=== PATIENT | male | born 1945 | race Caucasian/White ===

== ENCOUNTER 2017-01-07 18:30 | Emergency (ER) | payer MEDICARE ==
[2017-01-07] MEDS ORDERED: DIPH,PERTUS(ACELL)TETVAC-LF 0.5 ML VIAL IM ONE (18:43)
[2017-01-07 19:22] LABS: Basophils # (A) 0.1 k/uL (0-0.2); Basophils % (A) 1 %; CH 31.5; Eosinophils # (A) 0.3 k/uL (0-0.7); Eosinophils % (A) 2 %; HCT 46.8 % (39.0-53.0); HDW 2.68; HGB 14.8 gm/dL (13.0-17.5); Luc # (Auto) 0.39; Luc % (Auto) 3; Lymphocytes # (A) 2.5 k/uL (1.0-4.8); Lymphocytes % (A) 17 %; MCH 30.2 pg (25.0-35.0); MCHC 31.5 g/dL (31.0-37.0); Mean Platelet Volume 7.1; Monocytes # (A) 0.8 k/uL (0-1.0); Monocytes % (A) 5 %; Neutrophils # (A) 10.2 k/uL (1.3-7.7); Neutrophils % (A) 72 %; RBC 4.88 m/uL (4.30-5.90); RDW 14.2 % (11.5-15.5); WBC 14.2 k/uL (3.8-10.6); WBC (Perox) 12.84
[2017-01-07 19:30] LABS: MCV 95.9 fL (80.0-100.0)
[2017-01-07 19:32] LABS: ALT 26 U/L (21-72); AST 25 U/L (17-59); Alkaline Phosphatase 82 U/L (38-126); Anion Gap 13 mmol/L; Blood Urea Nitrogen 25 mg/dL (9-20); Calcium 9.4 mg/dL (8.4-10.2); Carbon Dioxide 23 mmol/L (22-30); Chloride 98 mmol/L (98-107); Glucose 97 mg/dL (74-99); Non-African American GFR(MDRD) 60 (>60 ml/min/1.73 sqM); Potassium 3.9 mmol/L (3.5-5.1); Sodium 134 mmol/L (137-145); Total Bilirubin 0.7 mg/dL (0.2-1.3); Total Protein 6.8 g/dL (6.3-8.2)
[2017-01-07 19:44] LABS: INR 1.1 (<1.2); Partial Thromboplastin Time 24.9 sec (22.0-30.0); Prothrombin Time 10.9 sec (9.0-12.0)
--- NOTE | 2017-01-07 19:59 | ED ---
General Adult HPI <Nyasia Sy - Last Filed: 01/07/17 22:05> - General Source: patient, family, EMS, RN notes reviewed Mode of arrival: EMS Limitations: no limitations <Sohail Wallace - Last Filed: 01/07/17 22:50> - General Chief complaint: Fall Stated complaint: Fall/Head Injiury Time Seen by Provider: 01/07/17 18:41 - History of Present Illness Initial comments: Patient is a pleasant 71-year-old male presenting to the emergency department following a fall. Incident occurred just prior to arrival. Patient slipped on the steps. Patient did roll back several steps and strike the [employer] coating on the mid-level. Patient did fall down another couple steps after that. Patient believes he did lose consciousness for up to a minute. Patient does have some mild discomfort in the back of his head. Patient has more discomfort of the left clavicle and left posterior ribs. Patient states it hurts to get deep breath however no dyspnea. Last tetanus immunization was less than 5 years. (Sohail Wallace) - Related Data Home Medications Medication Instructions Recorded Confirmed Multivitamins, Thera [Multivitamin] 1 tab PO DAILY 01/22/14 01/07/17 Spironolactone-Hctz 25-25Mg 1 tab PO DAILY 01/22/14 01/07/17 [Aldactazide 25-25 MG] Aspirin 81.25 mg PO DAILY 01/07/17 01/07/17 Atenolol [Tenormin] 50 mg PO DAILY 01/07/17 01/07/17 Atorvastatin Calcium [Lipitor] 10 mg PO HS 01/07/17 01/07/17 DULoxetine HCL [Cymbalta] 60 mg PO DAILY 01/07/17 01/07/17 Ranitidine HCl [Zantac] 150 mg PO BID 01/07/17 01/07/17 Tamsulosin [Flomax] 0.4 mg PO DAILY 01/07/17 01/07/17 Allergies Allergy/AdvReac Type Severity Reaction Status Date / Time SANTOSH Inhibitors Allergy Unknown Verified 01/07/17 19:21 gabapentin [From Neurontin] AdvReac Severe Swelling Verified 01/07/17 19:21 Review of Systems ROS Other: All systems not noted in ROS Statement are negative. <Nyasia Sy - Last Filed: 01/07/17 22:05> ROS Other: All systems not noted in ROS Statement are negative. Constitutional: Denies: fever Eyes: Denies: eye pain ENT: Denies: ear pain Respiratory: Denies: cough Cardiovascular: Denies: chest pain Endocrine: Denies: fatigue Gastrointestinal: Reports: abdominal pain (Patient has chronic epigastric pain.) Genitourinary: Denies: dysuria Musculoskeletal: Denies: back pain Skin: Denies: rash Neurological: Denies: weakness <Sohail Wallace - Last Filed: 01/07/17 22:50> ROS Statement: Those systems with pertinent positive or pertinent negative responses have been documented in the HPI. Past Medical History Past Medical History: Hypertension, Osteoarthritis (OA) Additional Past Medical History / Comment(s): FX PELVIS, WRIST, ELBOW, SPINE History of Any Multi-Drug Resistant Organisms: None Reported Past Surgical History: Appendectomy, Orthopedic Surgery, Tonsillectomy Additional Past Surgical History / Comment(s): DECOMPRESSION LAMINECTOMY, ORIF L ELBOW, L SUBMANDIBULAR GLAND EXCISED, EYE SURGERY Past Anesthesia/Blood Transfusion Reactions: No Reported Reaction Past Psychological History: No Psychological Hx Reported Smoking Status: Current every day smoker Past Alcohol Use History: Daily Past Drug Use History: None Reported - Past Family History Father Family Medical History: Cancer, Prostate Disorder <Sohail Wallace Last Filed: 01/07/17 22:50> General Exam Limitations: no limitations General appearance: alert, in no apparent distress Head exam: Present: other (Head is bandaged. There is blood in the posterior head.) Eye exam: Present: normal appearance, PERRL, EOMI ENT exam: Present: normal oropharynx Neck exam: Present: normal inspection. Absent: tenderness Respiratory exam: Present: normal lung sounds bilaterally Cardiovascular Exam: Present: regular rate, normal rhythm GI/Abdominal exam: Present: soft, tenderness (Minimal tenderness of the epigastric region which patient states is chronic.) Extremities exam: Present: normal inspection, full ROM, other (Mild tenderness medial left clavicle.) Back exam: Present: tenderness (Moderate tenderness left posterior ribs and muscle fullness.) Neurological exam: Present: alert, CN II-XII intact. Absent: motor sensory deficit Expanded Cranial nerves: EOM's Intact: Normal Motor strength exam: RUE: 5, LUE: 5, RLE: 5, LLE: 5 Psychiatric exam: Present: normal affect, normal mood Skin exam: Present: normal color <Sohail Wallace - Last Filed: 01/07/17 22:50> Course <KerrieNyasia - Last Filed: 01/07/17 22:05> <Sohail Wallace - Last Filed: 01/07/17 22:50> Vital Signs 01/07/17 01/07/17 01/07/17 18:45 19:10 19:46 Temperature 98.3 F Pulse Rate 70 78 Pulse Rate [ 70 Pulse Oximetery ] Respiratory 20 18 20 Rate Blood Pressure 112/56 100/56 O2 Sat by Pulse 99 99 Oximetry 01/07/17 01/07/17 01/07/17 20:41 21:45 22:00 Temperature Pulse Rate 81 77 88 Pulse Rate [ Pulse Oximetery ] Respiratory 20 18 22 Rate Blood Pressure 108/56 100/56 130/68 O2 Sat by Pulse 99 98 92 L Oximetry 01/07/17 22:30 Temperature Pulse Rate 60 Pulse Rate [ Pulse Oximetery ] Respiratory 18 Rate Blood Pressure 110/75 O2 Sat by Pulse 98 Oximetry - Reevaluation(s) Reevaluation #1: 01/07/17 20:15 Patient advised to have computed tomography scan of the abdomen pelvis. Patient refuses this and states discomfort is chronic. Patient refuses any pain medicine at this time. 01/07/17 22:30 Attempted to get patient up to ambulate. Patient had a near syncopal episode. Patient had return of bleeding from his left scalp laceration. 2 additional sutures of 4-0 nylon placed for hemostasis which was obtained. Sterile technique used. 01/07/17 22:49 Patient still unable to get up without dizziness. Patient is now agreeable to transfer. Unable to keep patient here secondary to head injury with loss of consciousness and trauma hospital protocol. Case was discussed in detail with Dr. Oakley at [facility] who will accept transfer. (Sohail Wallace) EKG Findings - EKG Comments: EKG Findings:: Size pericardial 59. CA 184. QRS 86. QT 466. QTc 461. Left axis. Normal QRS. No acute ST change. <Sohail Wallace - Last Filed: 01/07/17 22:50> Procedures - Laceration Laceration #1 Consent Obtained: verbal consent Indication: laceration Site: scalp (left frontoparietal) Size (cm): 4 Description: linear Depth: simple, single layer Anesthetic Used: lidocaine 1% Anesthesia Technique: local infiltration Amount (mls): 7 Pre-repair: wound explored, irrigated extensively, deep structures intact Type of Sutures: nylon Size of Sutures: 4-0 Number of Sutures: 6 Technique: simple, interrupted Patient Tolerated Procedure: well, no complications Laceration #2 Time Out Performed: Yes Indication: laceration Site: scalp (left frontoparietal) Size (cm): 2 Description: linear Depth: simple, single layer Anesthetic Used: lidocaine 1% Anesthesia Technique: local infiltration Amount (mls): 1 Pre-repair: wound explored, irrigated extensively, deep structures intact Type of Sutures: nylon Size of Sutures: 4-0 Number of Sutures: 2 Technique: simple, interrupted Patient Tolerated Procedure: well, no complications <Nyasia Sy - Last Filed: 01/07/17 22:05> Medical Decision Making - Lab Data Result diagrams: 01/07/17 19:04 01/07/17 19:04 <Nyasia Sy - Last Filed: 01/07/17 22:05> - Lab Data Result diagrams: 01/07/17 19:04 01/07/17 19:04 - Radiology Data Radiology results: report reviewed (Computed tomography scan of the brain shows atrophy. No acute intercranial abnormality. Temporal scalp hematoma. Computed tomography scan of the cervical spine shows spondylitic changes and narrowing C6-C7. No fracture.), image reviewed (Chest x-ray and left clavicle x -ray and AP pelvis showed no acute process.) <Sohail Wallace - Last Filed: 01/07/17 22:50> - Medical Decision Making Patient reevaluated and feels better. Patient still refuses computed tomography scan of the chest and abdomen. Patient and family are updated on results and need for follow-up. Patient states he does have a history of chronic high platelet count. Patient will follow-up with his doctor again for this. Patient will be ambulated prior to discharge. (Sohail Wallace) - Lab Data Lab Results 01/07/17 01/07/17 01/07/17 Range/Units 19:04 19:04 19:04 WBC 14.2 H (3.8-10.6) k/uL RBC 4.88 (4.30-5.90) m/uL Hgb 14.8 (13.0-17.5) gm/dL Hct 46.8 (39.0-53.0) % MCV 95.9 D (80.0-100.0) fL MCH 30.2 (25.0-35.0) pg MCHC 31.5 (31.0-37.0) g/dL RDW 14.2 (11.5-15.5) % Plt Count 843 H* (150-450) k/uL Neutrophils % 72 % Lymphocytes % 17 % Monocytes % 5 % Eosinophils % 2 % Basophils % 1 % Neutrophils # 10.2 H (1.3-7.7) k/uL Lymphocytes # 2.5 (1.0-4.8) k/uL Monocytes # 0.8 (0-1.0) k/uL Eosinophils # 0.3 (0-0.7) k/uL Basophils # 0.1 (0-0.2) k/uL PT 10.9 (9.0-12.0) sec INR 1.1 (<1.2) APTT 24.9 (22.0-30.0) sec Sodium 134 L (137-145) mmol/L Potassium 3.9 (3.5-5.1) mmol/L Chloride 98 (98-107) mmol/L Carbon Dioxide 23 (22-30) mmol/L Anion Gap 13 mmol/L BUN 25 H (9-20) mg/dL Creatinine 1.20 (0.66-1.25) mg/dL Est GFR (MDRD) Af Amer >60 (>60 ml/min/1.73 sqM) Est GFR (MDRD) Non-Af 60 (>60 ml/min/1.73 sqM) Glucose 97 (74-99) mg/dL Calcium 9.4 (8.4-10.2) mg/dL Total Bilirubin 0.7 (0.2-1.3) mg/dL AST 25 (17-59) U/L ALT 26 (21-72) U/L Alkaline Phosphatase 82 (38-126) U/L Troponin I (0.000-0.034) ng/mL Total Protein 6.8 (6.3-8.2) g/dL Albumin 4.1 (3.5-5.0) g/dL 01/07/17 Range/Units 19:04 WBC (3.8-10.6) k/uL RBC (4.30-5.90) m/uL Hgb (13.0-17.5) gm/dL Hct (39.0-53.0) % MCV (80.0-100.0) fL MCH (25.0-35.0) pg MCHC (31.0-37.0) g/dL RDW (11.5-15.5) % Plt Count (150-450) k/uL Neutrophils % % Lymphocytes % % Monocytes % % Eosinophils % % Basophils % % Neutrophils # (1.3-7.7) k/uL Lymphocytes # (1.0-4.8) k/uL Monocytes # (0-1.0) k/uL Eosinophils # (0-0.7) k/uL Basophils # (0-0.2) k/uL PT (9.0-12.0) sec INR (<1.2) APTT (22.0-30.0) sec Sodium (137-145) mmol/L Potassium (3.5-5.1) mmol/L Chloride (98-107) mmol/L Carbon Dioxide (22-30) mmol/L Anion Gap mmol/L BUN (9-20) mg/dL Creatinine (0.66-1.25) mg/dL Est GFR (MDRD) Af Amer (>60 ml/min/1.73 sqM) Est GFR (MDRD) Non-Af (>60 ml/min/1.73 sqM) Glucose (74-99) mg/dL Calcium (8.4-10.2) mg/dL Total Bilirubin (0.2-1.3) mg/dL AST (17-59) U/L ALT (21-72) U/L Alkaline Phosphatase (38-126) U/L Troponin I <0.012 (0.000-0.034) ng/mL Total Protein (6.3-8.2) g/dL Albumin (3.5-5.0) g/dL Disposition <Nyasia Sy - Last Filed: 01/07/17 22:05> Time of Disposition: 21:54 - Out of Hospital Transfer - Req. Specs Out of Hospital Transfer - Requested Specifics: Other Emergency Center <Sohail Wallace - Last Filed: 01/07/17 22:50> Clinical Impression: Fall, Concussion, Laceration of scalp Disposition: OTHER INSTITUTION NOT DEFINED Condition: Stable Instructions: Laceration (ED), Head Injury (ED) Additional Instructions: Twice daily apply antibiotic ointment to scalp laceration. Keep area bandaged. Suture removal in 9-10 days. Please follow-up with primary care physician in the next day or 2 for recheck. Return for change in mental status, weakness, confusion, speech problems, difficulty walking, worsening symptoms or any other concerns. Referrals: Ulices Freire MD [Primary Care Provider] - 1-2 days
--- NOTE | 2017-01-07 20:16 | CT ---
EXAMINATION TYPE: CT brain bennett levi DATE OF EXAM: 01/07/2017 COMPARISON: NONE HISTORY: Fall today with posterior injury CT DLP: 2088 mGycm Automated exposure control for dose reduction was used. TECHNIQUE: CT scan of the head and cervical spine are performed without contrast. FINDINGS: There is cerebral cortical atrophy. There is no mass effect nor midline shift. There is n o sign of intracranial hemorrhage. There is left temporal parietal scalp hematoma. The calvarium is i ntact. There is mild straightening of the cervical spine. There is spurring of the endplates. There i s a few millimeter anterior subluxation of C4 in relation to C5 and also C5 in relation to C6. There is hypertrophic multilevel mild facet arthropathy. The skull base is intact. IMPRESSION: Cerebral atrophy. No acute intracranial abnormality. Left temporal scalp hematoma. Spondylotic changes in the cervical spine. Severe narrowing of C6-7 disc space. This probably some sp inal stenosis at C6-7 due to posterior spur formation. No fracture seen in the cervical spine.
--- NOTE | 2017-01-07 20:50 | XR ---
EXAMINATION TYPE: XR chest 2V DATE OF EXAM: 01/07/2017 COMPARISON: 06/29/2015 HISTORY: Rib pain TECHNIQUE: Frontal and lateral views of the chest are obtained. FINDINGS: There is no heart failure nor confluent pneumonic infiltrate. There are chest leads. Costo phrenic angles are clear. IMPRESSION: No active cardiopulmonary disease. Inspiration is worse than last exam.
--- NOTE | 2017-01-07 20:50 | XR ---
EXAMINATION TYPE: XR clavicle LT DATE OF EXAM: 01/07/2017 COMPARISON: NONE HISTORY: Pain TECHNIQUE: 2 views FINDINGS: I see no fracture nor dislocation. There is spurring at the AC joint. IMPRESSION: No acute abnormality of the clavicle.
--- NOTE | 2017-01-07 20:56 | XR ---
EXAMINATION TYPE: XR pelvis AP view DATE OF EXAM: 01/07/2017 COMPARISON: NONE HISTORY: Pain TECHNIQUE: Single view FINDINGS: The pelvic ring is intact. Proximal femurs and hip joints are intact. Sacroiliac joints are intact. IMPRESSION: Negative pelvis x-ray exam. No fracture seen.
[2017-01-07 21:10] VITALS: TEMP 98.3
[2017-01-07 22:49] VITALS: BP 110/75; PULSE 60; RESP 18
[2017-01-07] MEDS ORDERED: MORPHINE SULFATE 2 MG/ML SYRINGE IVP STA (23:22)
== END 2017-01-08 00:37 | disposition other institution (70) ==
LOC: EC 18:30
DX: S06.0X0A Concussion without loss of consciousness, initial encounter (principal); S01.01XA Laceration without foreign body of scalp, initial encounter; I10 Essential (primary) hypertension; M19.90 Unspecified osteoarthritis, unspecified site; F17.200 Nicotine dependence, unspecified, uncomplicated; Z53.29 Procedure and treatment not carried out because of patient's decision for other reasons; Z79.82 Long term (current) use of aspirin; Z79.899 Other long term (current) drug therapy; Z88.8 Allergy status to other drugs, medicaments and biological substances; W10.9XXA Fall (on) (from) unspecified stairs and steps, initial encounter; Y92.009 Unspecified place in unspecified non-institutional (private) residence as the place of occurrence of the external cause
CPT/HCPCS: 36415; 93005; 80053; 84484; 85025; 85610; 85730; 71020; 72170; 73000; 72125; 70450; 99285; 96374; 12002; J2270

== ENCOUNTER → 2017-03-03 | Outpatient (CLI) | payer MEDICARE ==
[2017-03-03 13:45] LABS: Blood Urea Nitrogen 31 mg/dL (9-20)
--- NOTE | 2017-03-03 23:14 | CT ---
EXAMINATION TYPE: CT angio abdomen pelvis DATE OF EXAM: 03/03/2017 COMPARISON: CT abdomen August 08, 2009 HISTORY: Stent graft placed December 2016 4 abdominal aortic aneurysm rule out endoleak. CT DLP: 2541 mGycm, Automated Exposure Control for Dose Reduction was Utilized. CONTRAST: CTA scan of the abdomen and pelvis is performed without oral and without and with IV Contrast, patien t injected with 100 mL of Omnipaque 350. Three-D reconstructed images are created on a independent wo rkstation and reviewed. FINDINGS: VASCULAR: Since prior CT there is marked progression in size of [place] infrarenal abdominal aortic an eurysm. [place] Aneurysm measures up to 7.8 cm transversely on axial image 44. Length of the aneurysm is roughly 9 cm ending aortic bifurcation. There is new metallic aorta biiliac stent graft beginning at the juxtarenal level extending into common iliac arteries up to level of iliac bifurcation. Postco ntrast images show patency of the stent graft. There is a patent CHANDLER identified anteriorly from stent graft. No suspicious extraluminal enhancement is seen within the [place] aneurysmal sac to suggest en doleak. There are patent bilateral renal arteries, celiac axis, and SMA noted. There is good flow of contrast in bilateral internal and external iliac arteries. LUNG BASES: Bilateral gynecomastia is noted new from prior study. There is moderate to severe three-v essel coronary artery calcification seen which is noted marker for coronary artery disease. LIVER/GB: There are several subcentimeter low dense lesions scattered throughout the liver on current study to small to further characterize. Largest lesion seen in prior study posterior right hepatic d ome is not clearly seen on current study. There may be few new lesions seen on current study. Lesions are nonspecific due to small size. PANCREAS: No significant abnormality is seen. SPLEEN: No significant abnormality is seen. ADRENALS: Asymmetric nodular thickening to the left adrenal gland is thought to reflect benign hyperp lasia is unchanged from prior study. KIDNEYS: There is persistent simple appearing 2.2 cm cyst upper pole of the right kidney laterally se en best series 6 image 4. There are additional small simple appearing cysts scattered throughout the right kidney. BOWEL: No significant abnormality is seen. PROSTATE/SEMINAL VESICLES: Some central zone calcifications are seen in nonenlarged prostate gland LYMPH NODES: No greater than 1cm abdominal or pelvic lymph nodes are appreciated. OSSEOUS STRUCTURES: There is new postsurgical change in the lower lumbar spine. There is S-shaped sco liotic curvature and loss of normal lordosis on sagittal images. There is mild chronic compression fr acture L1 level. Some sacroiliac joint space narrowing is present bilaterally. OTHER: There is small fat containing left inguinal hernia. IMPRESSION: Large abdominal aortic aneurysm with patent aortobiiliac stent graft, no CTA evidence for endoleak.
== END | disposition home or self-care (01) ==
LOC: RADCTMAIN 12:51
PROVIDERS: ATTEND Surgery
DX: I71.4 Abdominal aortic aneurysm, without rupture (principal); Z98.890 Other specified postprocedural states
CPT/HCPCS: 82565; 84520; 36415; 74174; Q9967

== ENCOUNTER → 2017-08-10 | Outpatient (CLI) | payer MEDICARE ==
--- NOTE | 2017-08-10 18:30 | US ---
EXAM MEASUREMENTS: Liver Length: 14.7 CM Gallbladder Wall: 0.2 CM CBD: 0.4 CM Right Kidney: 10.2 X 5.6 X 5.3 CM PATIENT HISTORY: RUQ PAIN. Difficult and limited exam due to large amount of overlying bowel gas. PRIOR EXAM: CT 03/03/2017, US 04/05/2012 TECH IMPRESSIONS: 1. Pancreas: Obscured by bowel gas 2. Liver: Difficult and limited visualization. Heterogeneous echotexture. A few echogenic foci sloan uring 0.4 cm visualized throughout the liver, possible granuloma vs other 3. Gallbladder: wnl as visualized Evidence for sonographic Forrest's sign? No 4. CBD: wnl as visualized 5. Right Kidney: No hydronephrosis. Multiple cystic areas visualized, largest mid pole measuring 2. 0 x 2.0 x 2.1 cm IMPRESSION: No gallstones or dilated ducts. No ascites. Multiple right renal cortical cysts without hydronephrosi s.
== END | disposition home or self-care (01) ==
LOC: RADUSWWP 15:40
PROVIDERS: ATTEND Internal Medicine
DX: N28.1 Cyst of kidney, acquired (principal)
CPT/HCPCS: 76705

== ENCOUNTER 2019-01-14 22:13 | Inpatient (IN) | payer MEDICARE ==
[2019-01-14] MEDS ORDERED: SODIUM CHLORIDE 0.9% 1,000 ML IV STA (22:39)
[2019-01-14] MEDS ORDERED: KETOROLAC 30 MG/ML 1 ML VIAL IVP STA (22:39)
[2019-01-14 23:02] LABS: Anisocytosis Slight; HCT 44.1 % (39.0-53.0); HGB 13.8 gm/dL (13.0-17.5); MCHC 31.4 g/dL (31.0-37.0); Mean Platelet Volume 6.8; RBC 5.12 m/uL (4.30-5.90); RDW 16.9 % (11.5-15.5); WBC 28.4 k/uL (3.8-10.6)
[2019-01-14 23:04] LABS: Platelet Count 1390 k/uL (150-450)
--- NOTE | 2019-01-14 23:12 | XR ---
EXAMINATION TYPE: XR KUB DATE OF EXAM: 01/14/2019 COMPARISON: 03/02/2013 HISTORY: Left flank pain TECHNIQUE: 2 views upright FINDINGS: There is no sign of intestinal obstruction or pneumoperitoneum. Fecal pattern is normal. Th ere is abdominal aortic stent. There is posterior fusion surgery in the lower lumbar spine. There is some mild pleural reaction and atelectasis left lung base. There are no pathologic calcifications ove r the kidneys. IMPRESSION: Mild left-sided pleural reaction or atelectasis is a change compared to old exam. No free air.
--- NOTE | 2019-01-14 23:13 | ED ---
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 Upon my initial evaluation patient states "I believe I am suffering from nephrolithiasis" Reports that he's been doing well lately, been motivated to be physically active and his been participating in a rather strenuous exercise routine. Patient states that on Wednesday night he had an episode of left-sided flank pain that lasted for a few hours and resolved. He was able to sleep through the night and was asymptomatic throughout the day on Wednesday. Wednesday evening patient reports that he was at home resting, he attempted to sit down in a beach-type chair when he developed sudden stabbing left-sided flank pain with associated nausea. Patient reports the pain was overwhelming and prompted him to contact EMS. Upon EMS arrival patient was noted to be pale diaphoretic and quite u ncomfortable. He was treated with 10 mg of IV morphine as well as Zofran. Upon arrival in the emergency department patient reports his pain is decreased from a 12 out of 10-10 out of 10 in intensity. Patient states that he did urinate prior to EMS arrival didn't notice any gross hematuria. Patient denies any history of kidney stones. Patient denies any recent illness or injury. Upon further questioning patient does report that he had a aortic aneurysm repair 2-3 years ago. Patient states that the aortic aneurysm was below the renal arteries. - Related Data Home Medications Medication Instructions Recorded Confirmed Multivitamins, Thera [Multivitamin] 1 tab PO DAILY 01/22/14 01/07/17 Spironolactone-Hctz 25-25Mg 1 tab PO DAILY 01/22/14 01/07/17 [Aldactazide 25-25 MG] Atenolol [Tenormin] 50 mg PO DAILY 01/07/17 01/07/17 Atorvastatin Calcium [Lipitor] 10 mg PO HS 01/07/17 01/07/17 DULoxetine HCL [Cymbalta] 60 mg PO DAILY 01/07/17 01/07/17 RX: Aspirin 81.25 mg PO DAILY 11/30/17 11/30/17 Ranitidine HCl [Zantac] 150 mg PO BID 01/07/17 01/07/17 Tamsulosin [Flomax] 0.4 mg PO DAILY 01/07/17 01/07/17 Allergies Allergy/AdvReac Type Severity Reaction Status Date / Time SANTOSH Inhibitors Allergy Unknown Verified 01/14/19 22:19 gabapentin [From Neurontin] AdvReac Severe Swelling Verified 01/14/19 22:19 Review of Systems ROS Statement: Those systems with pertinent positive or pertinent negative responses have been documented in the HPI. ROS Other: All systems not noted in ROS Statement are negative. Past Medical History Past Medical History: Hypertension, Osteoarthritis (OA) Additional Past Medical History / Comment(s): FX PELVIS, WRIST, ELBOW, SPINE History of Any Multi-Drug Resistant Organisms: None Reported Past Surgical History: Appendectomy, Orthopedic Surgery, Tonsillectomy Additional Past Surgical History / Comment(s): DECOMPRESSION LAMINECTOMY, ORIF L ELBOW, L SUBMANDIBULAR GLAND EXCISED, EYE SURGERY Past Anesthesia/Blood Transfusion Reactions: No Reported Reaction Past Psychological History: No Psychological Hx Reported Smoking Status: Current every day smoker Past Alcohol Use History: None Reported Past Drug Use History: None Reported - Past Family History Father Family Medical History: Cancer, Prostate Disorder General Exam - General Exam Comments Initial Comments: Physical Exam GENERAL: Upon initial evaluation patient is diaphoretic, speaking in full sentences and making jokes HENT: Normocephalic, Atraumatic. EYES: PERRL, EOMI No conjunctival pallor PULMONARY: Unlabored respirations. No audible rales rhonchi or wheezing was noted. CARDIOVASCULAR: There is a regular rate and rhythm without any murmurs gallops or rubs. Warm and well perfused extremities ABDOMEN: Soft and nontender with normal bowel sounds. No bruit No pulsatile mass SKIN: Skin was pale and diaphoretic upon arrival, however when pain medications began working pallor resolved as did diaphoresis : Deferred NEUROLOGIC: Patient is alert and oriented x3. Moving all extremities spontaneously MUSCULOSKELETAL: Normal extremities with adequate strength and full range of motion. No lower extremity swelling or edema. No calf tenderness. PSYCHIATRIC: Normal psychiatric evaluation. Limitations: no limitations Course Vital Signs 01/14/19 01/14/19 01/15/19 22:15 23:53 01:33 Temperature 97.9 F Pulse Rate 66 89 92 Respiratory 16 16 18 Rate Blood Pressure 134/82 143/97 148/105 O2 Sat by Pulse 95 98 97 Oximetry 01/15/19 01/15/19 01:45 02:00 Temperature Pulse Rate 72 75 Respiratory 18 18 Rate Blood Pressure 142/75 137/88 O2 Sat by Pulse 97 97 Oximetry Medical Decision Making - Medical Decision Making Patient was seen and evaluated immediately upon arrival to the emergency department This is 73 to gentleman with no history of nephrolithiasis does have a history of AAA repair presenting with sudden onset of left-sided flank pain Labs and imaging were ordered Toradol was ordered for additional pain management - was initially resistant to the idea of Toradol stating that it doesn't usually work for pain however advised that it's very effective for kidney stone pain and may be a good option. 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 Hemoglobin is stable Patient has normal kidney function and is cleared for computed tomography scan with contrast, CT was ordered however when the mechanical maintenance technician arrived at the bedside to take the patient he declined to be transported to CT and wanted discussed imaging options again. Return to the patient's bedside and advised that we do need IV contrast to evaluate the vasculature in his abdomen including the AAA and graft. I advised the patient that though his symptoms do seem to be very much similar to a kidney stone especially considering pain has resolved completely after Toradol and the patient remains hemodynamically stable, we do need to rule out more ominous pathology including vascular pathology. Patient is agreeable to CT. Patient was subsequently transported to computed tomography scan. I received a call from radiology agricultural extension agent, computed tomography scan is in fact concerning for a vascular catastrophe. Patient appears to have exsanguination from the AAA into the retroperitoneum Vascular Surgery was paged immediately Results were discussed with the patient who still remains hemodynamically stable and asymptomatic, in anticipation of possible surgical intervention additional labs including type and screen and cross matching were requested requested lab cross match 6 units should the OR needed. Repeat CBC was also ordered as the patient has been here for 2 and half hours. Patient care was discussed with vascular surgeon agricultural extension agent Dr Ayala who happens to be a vascular surgeon who performed the patient's previous procedures. He is very familiar with patient. He was able to review the patient's images from home, he then contacted the radiologist on-call to discuss the imaging. After review of the imaging with the radiologist on-call decision was made to take the patient to the laborer filter plant for angiogram. Patient as updated on this plan as was his daughter Patient repeat CBC reveals stable hemoglobin 13.5 Patient remained hemodynamically stable and was transported to the lab[facility] filter plant for further evaluation Admitting hospitalist Dr. Chow was notified, epic ambulatory analysts was also notified - Lab Data Result diagrams: 01/15/19 01:30 01/14/19 22:53 Lab Results 01/14/19 01/14/19 01/15/19 Range/Units 22:53 22:53 01:30 WBC 28.4 H (3.8-10.6) k/uL RBC 5.12 (4.30-5.90) m/uL Hgb 13.8 (13.0-17.5) gm/dL Hct 44.1 (39.0-53.0) % MCV 86.0 (80.0-100.0) fL MCH 27.0 (25.0-35.0) pg MCHC 31.4 (31.0-37.0) g/dL RDW 16.9 H (11.5-15.5) % Plt Count 1390 H* (150-450) k/uL Neutrophils % % Neutrophils % (Manual) 86 % Band Neutrophils % 1 % Lymphocytes % % Lymphocytes % (Manual) 5 % Monocytes % % Monocytes % (Manual) 8 % Eosinophils % % Basophils % % Neutrophils # (1.3-7.7) k/uL Neutrophils # (Manual) 24.70 H (1.3-7.7) k/uL Lymphocytes # (1.0-4.8) k/uL Lymphocytes # (Manual) 1.42 (1.0-4.8) k/uL Monocytes # (0-1.0) k/uL Monocytes # (Manual) 2.27 H (0-1.0) k/uL Eosinophils # (0-0.7) k/uL Basophils # (0-0.2) k/uL Nucleated RBCs 0 (0-0) /100 WBC Manual Slide Review Performed Anisocytosis Slight Sodium 140 (137-145) mmol/L Potassium 4.7 (3.5-5.1) mmol/L Chloride 110 H (98-107) mmol/L Carbon Dioxide 22 (22-30) mmol/L Anion Gap 8 mmol/L BUN 32 H (9-20) mg/dL Creatinine 0.97 (0.66-1.25) mg/dL Est GFR (CKD-EPI)AfAm 89 (>60 ml/min/1.73 sqM) Est GFR (CKD-EPI)NonAf 77 (>60 ml/min/1.73 sqM) Glucose 152 H (74-99) mg/dL Calcium 9.6 (8.4-10.2) mg/dL Total Bilirubin 0.7 (0.2-1.3) mg/dL AST 23 (17-59) U/L ALT 16 L (21-72) U/L Alkaline Phosphatase 68 (38-126) U/L Total Protein 6.2 L (6.3-8.2) g/dL Albumin 3.5 (3.5-5.0) g/dL Blood Type A Positive Blood Type Recheck A Pos Bld Type Recheck Status No Antibody Screen NEGATIVE Crossmatch See Detail Spec Expiration Date 01/18/2019 - 232901/15/19 Range/Units 01:30 WBC 27.0 H (3.8-10.6) k/uL RBC 4.98 (4.30-5.90) m/uL Hgb 13.5 (13.0-17.5) gm/dL Hct 43.2 (39.0-53.0) % MCV 86.8 (80.0-100.0) fL MCH 27.1 (25.0-35.0) pg MCHC 31.2 (31.0-37.0) g/dL RDW 16.9 H (11.5-15.5) % Plt Count 1267 H* (150-450) k/uL Neutrophils % 90 % Neutrophils % (Manual) % Band Neutrophils % % Lymphocytes % 4 % Lymphocytes % (Manual) % Monocytes % 5 % Monocytes % (Manual) % Eosinophils % 0 % Basophils % 0 % Neutrophils # 24.2 H (1.3-7.7) k/uL Neutrophils # (Manual) (1.3-7.7) k/uL Lymphocytes # 1.0 (1.0-4.8) k/uL Lymphocytes # (Manual) (1.0-4.8) k/uL Monocytes # 1.3 H (0-1.0) k/uL Monocytes # (Manual) (0-1.0) k/uL Eosinophils # 0.1 (0-0.7) k/uL Basophils # 0.1 (0-0.2) k/uL Nucleated RBCs (0-0) /100 WBC Manual Slide Review Performed Anisocytosis Slight Sodium (137-145) mmol/L Potassium (3.5-5.1) mmol/L Chloride (98-107) mmol/L Carbon Dioxide (22-30) mmol/L Anion Gap mmol/L BUN (9-20) mg/dL Creatinine (0.66-1.25) mg/dL Est GFR (CKD-EPI)AfAm (>60 ml/min/1.73 sqM) Est GFR (CKD-EPI)NonAf (>60 ml/min/1.73 sqM) Glucose (74-99) mg/dL Calcium (8.4-10.2) mg/dL Total Bilirubin (0.2-1.3) mg/dL AST (17-59) U/L ALT (21-72) U/L Alkaline Phosphatase (38-126) U/L Total Protein (6.3-8.2) g/dL Albumin (3.5-5.0) g/dL Blood Type Blood Type Recheck Bld Type Recheck Status Antibody Screen Crossmatch Spec Expiration Date Critical Care Time Critical Care Time: Yes Total Critical Care Time: 45 Critical Care Time: Critical Care Time Critical care time was exclusive of separately billable procedures and treating other patients and teaching time. Critical care was necessary to treat or prevent imminent or life-threatening deterioration. Given the critical condition in which the patient arrived, the patient was immediately assessed by myself and the nurse, and cardiac monitoring initiated due to the potential for rapid decompensation of the patient's clinical condition. During the course of the patients stay, I spent a considerable amount of time at the bedside performing serial re-evaluations of the patient's h emodynamic and clinical status because of the recognized potential threat to life or limb in this condition. I then had a chance to review not only all of the available current laboratory and radiographic studies obtained today, but I also reviewed old records available to me at the time. Additionally, any ancillary information available including steam bone press tender records were reviewed. Sequential vital signs were obtained. Disposition Clinical Impression: AAA (abdominal aortic aneurysm), Retroperitoneal bleeding, Flank pain, Leukocytosis Disposition: ADMITTED IP TO THIS HOSP Is patient prescribed a controlled substance at d/c from ED?: No
[2019-01-14 23:23] LABS: Albumin 3.5 g/dL (3.5-5.0); Calcium 9.6 mg/dL (8.4-10.2); Potassium 4.7 mmol/L (3.5-5.1); Total Bilirubin 0.7 mg/dL (0.2-1.3); Total Protein 6.2 g/dL (6.3-8.2)
[2019-01-14 23:38] LABS: Band Neutrophils % 1 %; Lymphocytes # (M) 1.42 k/uL (1.0-4.8); Monocytes # (M) 2.27 k/uL (0-1.0); Neutrophils % (M) 86 %; Nucleated Red Blood Cells 0 /100 WBC (0-0); Total Cells Counted 100
--- NOTE | 2019-01-15 01:31 | CT ---
EXAMINATION TYPE: CT abdomen pelvis w con DATE OF EXAM: 01/15/2019 COMPARISON: 08/08/2009 and 03/03/2017 HISTORY: Left Flank pain CT DLP: 1275.7 mGycm Automated exposure control for dose reduction was used. CONTRAST: Performed with IV Contrast, patient injected with 100 mL of Isovue 300. There is some patchy atelectasis at the lung bases. Heart appears enlarged. There is no pericardial e ffusion. There is no pleural effusion. Spleen is intact. Stomach has normal size and contour. Gallbla dder is intact. There are small hepatic cysts that measure up to 1.5 cm. Bile ducts are not dilated. There is no evidence of pancreatic mass. Pancreatic duct appears normal. There is lower abdominal aortic aneurysm. There is aortic stent extending into the iliac arteries. Th ere is a large amount of retroperitoneal high attenuation fluid along the left psoas muscle extending into the pelvis along the iliopsoas muscle. This is consistent with acute retroperitoneal hemorrhage . This measures up to 6 cm in thickness. There is large aneurysm of the lower abdominal aorta. Aneury sm measures up to 8.3 cm which is increased from 7.7 cm on old exam. There is no retroperitoneal franklyn opathy. There is no ascites. There is no inguinal hernia. Hemorrhage extends into the inguinal canal. Kidneys show satisfactory contrast opacification. There is 2 cm cyst posterior right kidney. There is 3 cm cortical cyst upper pole right kidney. There is no hydronephrosis. Left kidney is displaced ant eriorly to a mild degree due to the retroperitoneal hemorrhage. There is no evidence of a bowel obstruction. Bladder distends smoothly. There is no free fluid in the pelvis. There is posterior fusion surgery in the lower lumbar spine. There is 25% anterior wedging of L1 vert ebra related to old compression fracture unchanged. There is no free air. There is no ascites. IMPRESSION: Large abdominal aortic aneurysm increased compared to 03/03/2017. There is evidence of very large acut e retroperitoneal hemorrhage on the left side along the left psoas muscle related to acute bleeding a bdominal aortic aneurysm. Maximum dimension of the aneurysm is 8.3 cm which is 6 mm larger than previ ous exam of 03/03/2017. This exam was discussed with Dr. Childers at 1:30 AM. Patchy atelectasis at the lung bases increased compared to old exam.
[2019-01-15 01:40] LABS: Anisocytosis Slight; Basophils # (A) 0.1 k/uL (0-0.2); Basophils % (A) 0 %; Eosinophils # (A) 0.1 k/uL (0-0.7); Eosinophils % (A) 0 %; HCT 43.2 % (39.0-53.0); HGB 13.5 gm/dL (13.0-17.5); Lymphocytes % (A) 4 %; MCH 27.1 pg (25.0-35.0); MCHC 31.2 g/dL (31.0-37.0); MCV 86.8 fL (80.0-100.0); Mean Platelet Volume 6.9; Monocytes # (A) 1.3 k/uL (0-1.0); Monocytes % (A) 5 %; Neutrophils # (A) 24.2 k/uL (1.3-7.7); Neutrophils % (A) 90 %; RBC 4.98 m/uL (4.30-5.90); RDW 16.9 % (11.5-15.5)
[2019-01-15 01:44] LABS: Platelet Count 1267 k/uL (150-450)
[2019-01-15] MEDS ORDERED: NALOXONE 0.4 MG/ML 1 ML VIAL IV PRN (02:27)
[2019-01-15] MEDS ORDERED: MIDAZOLAM 2 MG/2 ML VIAL IVP ONE (02:57)
[2019-01-15] MEDS ORDERED: LIDOCAINE 1% INJ 10MG/ML (20 ML MDV) SQ ONE (02:57)
[2019-01-15] MEDS ORDERED: IV FLUID CONTINUATION 1,000 ML IV ONE (03:08)
--- NOTE | 2019-01-15 03:59 | P.PN ---
Progress Note - Text Progress Note Date: 01/15/19 73-year-old gentleman presented to the emergency department for left flank pain onset Wednesday which patient states pain was significant and he thought it was secondary to a kidney stone. This pain lasted approximately 6 hours and then resolved. Last night he stated having significant pain and once again on the flank just above his ASIS on the left and therefore came to the emergency department at that time. He had a CT with contrast that demonstrated a retroperitoneal bleed on the left. I was called at that time and reviewed the CT with the emergency department as well as the radiologist on-call. He does have a stenting graft in place which was filling and did not appear to have any active extravasation outside of the graft. In discussions with the radiologist it was determined that the retroperitoneal bleed was likely from the aorta and not due to a spontaneous so as bleed. He was therefore scheduled for aortogram with possible realigning of the graft.
[2019-01-15] MEDS ORDERED: IOPAMIDOL-370 125ML BTL INJ ONE (04:00)
[2019-01-15] MEDS ORDERED: IOPAMIDOL-370 100ML BTL INJ ONE (04:01)
--- NOTE | 2019-01-15 04:05 | P.OP ---
Description of Procedure: Preoperative diagnosis: AAA with retroperitoneal bleed possible endoleak Postop diagnosis: AAA with retroperitoneal bleed unable to visualize endoleak Procedure: Aortogram via right common femoral artery access under ultrasound guidance Surgeon: Lucy Anesthesia: Moderate sedation times one hour Estimated blood loss: 5 mL Complications: None Condition: Stable Findings: Aorta: Patent graft without any signs of endoleak. No filling of retroperitoneal bleed. Celiac artery: Patent without any stenosis no evidence of type II endoleak from the celiac artery. SMA: Patent without any stenosis no evidence of type II endoleak from the SMA noted. Iliacs: Bilateral iliac arteries are patent without any signs of extravasation. Endograft is intact. Operative narrative: After emergent informed consent was obtained the patient all risks benefits competitions were described the patient is brought to the [facility] and laid in a supine position. The area of the groins was prepped and draped in the usual sterile fashion. Local anesthesia with moderate sedation was performed with continuous pulse ox monitoring and EKG monitoring. Utilizing ultrasound the right common femoral artery was visualized and shown to be patent without any significant plaque. Utilizing a multipurpose needle under ultrasound guidance the artery was accessed. Guidewire was placed followed by 5-Polish sheath. 035 Glidewire was then placed into the aorta followed by pigtail catheter. Angiogram was then obtained of the aorta. Multiple views including a lateral was obtained demonstrating no evidence of extravasation or filling of the aneurysmal sac. The graft appeared to be opposed with patent and brisk flow through the graft without anything outside of the graft. There was no visualization of any type II endoleak's as well. Once completed all guidewires, catheters and sheaths were removed and pressure was placed for hemostasis. Patient tolerated procedure well was sent to PACU for recovery Disposition: Patient will be admitted to the hospital for continued evaluation and monitoring. He will be on a telemetry floor for continuous EKG monitoring and blood pressure monitoring. We will continue to follow his blood count and hemoglobin see if there is any drop. We will recheck a CT angiogram in a couple days to see if there is any filling of this retroperitoneal bleed at that time. This was discussed in full detail with the patient who is in complete understanding and agreement.
[2019-01-15] MEDS ORDERED: MORPHINE SULFATE 2 MG/ML SYRINGE IVP PRN (04:08)
[2019-01-15 08:40] LABS: Anisocytosis Slight; HCT 42.3 % (39.0-53.0); HGB 13.1 gm/dL (13.0-17.5); MCH 27.3 pg (25.0-35.0); MCHC 31.1 g/dL (31.0-37.0); MCV 87.8 fL (80.0-100.0); RBC 4.81 m/uL (4.30-5.90); RDW 16.9 % (11.5-15.5)
[2019-01-15 08:47] LABS: Albumin 3.9 g/dL (3.5-5.0); Calcium 9.7 mg/dL (8.4-10.2); Magnesium 1.9 mg/dL (1.6-2.3); Phosphorus 4.2 mg/dL (2.5-4.5); Potassium 5.3 mmol/L (3.5-5.1); Total Bilirubin 0.7 mg/dL (0.2-1.3); Total Protein 6.8 g/dL (6.3-8.2)
[2019-01-15 08:50] LABS: Platelet Count 1397 k/uL (150-450)
[2019-01-15] MEDS: MORPHINE SULFATE 4 MG/ML SYRINGE IVP PRN ×4 (08:52→20:57)
[2019-01-15] MEDS ORDERED: ACETAMINOPHEN TAB 325 MG TAB PO PRN (10:31)
[2019-01-15] MEDS ORDERED: MELATONIN 5 MG TABLET PO PRN (10:31)
[2019-01-15] MEDS ORDERED: DOCUSATE 100 MG CAP PO PRN (10:31)
[2019-01-15] MEDS ORDERED: ALBUTEROL NEBULIZED 2.5 MG/3 ML INHALATION PRN (10:31)
[2019-01-15] MEDS ORDERED: ONDANSETRON 4 MG/2 ML VIAL IVP PRN (10:31)
--- NOTE | 2019-01-15 10:37 | P.HPIM ---
History of Present Illness H&P Date: 01/15/19 Chief Complaint: back pain Patient is a 73-year-old male to past history of idiopathic thrombocytosis with prior treatment with hydroxyurea, hypertension, dyslipidemi a, arthritis, and prior abdominal aortic aneurysm status post grafting approximately 2 years ago who presented to the emergency department with complaints of left-sided flank pain. In the ER he underwent an extensive evaluation. His initial vital signs were within normal limits. Initial laboratory analysis showed an elevated white blood cell count at 28.4, platelets 1390, hemoglobin 13.8, chloride 110, BUN 32, and glucose of 152. He underwent a CT of the abdomen and pelvis which showed a large abdominal aortic aneurysm increased in size compared to 03/03/17 with evidence of a very large acute retroperitoneal hemorrhage on the left side along with psoas muscle related to acute bleeding abdominal aortic aneurysm. Maximal dimension of the aneurysm was 8.3 cm which is 6 mm larger than previous exam. Dr. Ayala was contacted. Patient underwent aortogram via right common femoral artery access under ultrasound guidance which did not show any signs of an endoleak. Patient was subsequently admitted to the selective care unit. Patient seen and examined at bedside. He reports that he started having some flank pain on 01/13 and he initially thought this was renal colic and elevated ba devan at approximately 4 in the morning on 01/14. Then on the evening of 01/14 he went to sit in a beachchair is on the deck and again started having some left- sided flank pain. This continued to increase in nature and he finally presented to the emergency department. He denies any associated chest pain, shortness of breath, nausea, vomiting, dizziness, or fainting episodes. He denies any recent cough, cold, fever, or flu. He has not had any recent falls or trauma. He reports that he is falling frequently 2 years ago but he has since been doing physical therapy and then working out at the [employer]. He does report a history of idiopathic thrombocytosis for which he has seen Dr. Cornejo the past and been placed on hydroxyurea. He reports the office approximately 2 years ago and not having hematology follow-up in approximately the last 5-10 years. He continues to smoke approximately one pack per day. He denies any recent weight loss. Review of Systems Pertinent positives and negatives as discussed in HPI, a complete review of systems was performed and all other systems are negative. Past Medical History Past Medical History: Hyperlipidemia, Hypertension, Osteoarthritis (OA) Additional Past Medical History / Comment(s): FX PELVIS, WRIST, ELBOW, SPINE, Idiopathic thrombocytosis History of Any Multi-Drug Resistant Organisms: None Reported Past Surgical History: Appendectomy, Orthopedic Surgery, Tonsillectomy Additional Past Surgical History / Comment(s): DECOMPRESSION LAMINECTOMY, ORIF L ELBOW, L SUBMANDIBULAR GLAND EXCISED, EYE SURGERY, R CEA Past Anesthesia/Blood Transfusion Reactions: No Reported Reaction Past Psychological History: No Psychological Hx Reported Smoking Status: Current every day smoker Past Alcohol Use History: None Reported Past Drug Use History: None Reported Additional History: less than 1 PPD, No alcohol at this time - Past Family History Father Family Medical History: Cancer, Prostate Disorder Medications and Allergies Home Medications Medication Instructions Recorded Confirmed Type Atenolol [Tenormin] 50 mg PO DAILY@0800 01/07/17 01/15/19 History Atorvastatin Calcium [Lipitor] 10 mg PO DAILY@0800 01/07/17 01/15/19 History DULoxetine HCL [Cymbalta] 60 mg PO HS@199901/07/17 01/15/19 History Ranitidine HCl [Zantac] 150 mg PO BID@799,199901/07/17 01/15/19 History Tamsulosin [Flomax] 0.4 mg PO HS@199901/07/17 01/15/19 History Calcium/Magnesium/Zinc 1 tab PO DAILY@0800 01/15/19 01/15/19 History [Srqnmzg-Losdffrep-Ljet Tablet] Cyanocobalamin (Vitamin B-12) 1,000 mcg PO DAILY@0800 01/15/19 01/15/19 History [Vitamin B-12] Mometasone/Formoterol [Dulera 200 2 puff INHALATION RT-BID@799,199901/15/19 01/15/19 History Mcg/5 Mcg Inhaler] Thiamine [Vitamin B-1] 50 mg PO BID@799,199901/15/19 01/15/19 History Allergies Allergy/AdvReac Type Severity Reaction Status Date / Time SANTOSH Inhibitors Allergy Unknown Verified 01/15/19 09:08 gabapentin [From Neurontin] AdvReac Severe Swelling Verified 01/15/19 09:08 Physical Exam Osteopathic Statement: *. No significant issues noted on an osteopathic structural exam other than those noted in the History and Physical/Consult. Vitals: Vital Signs Temp Pulse Pulse Resp BP BP Pulse Ox 01/15/19 05:51 80 18 124/80 93 L 01/15/19 05:21 77 18 122/76 94 L 01/15/19 05:06 18 01/15/19 04:51 87 18 135/75 95 01/15/19 04:36 81 18 137/81 93 L 01/15/19 04:21 77 18 136/78 93 L 01/15/19 04:13 97.9 F 70 18 136/73 95 01/15/19 02:00 75 18 137/88 97 01/15/19 01:45 72 18 142/75 97 01/15/19 01:33 92 18 148/105 97 01/14/19 23:53 89 16 143/97 98 01/14/19 22:15 97.9 F 66 16 134/82 95 Intake and Output 01/14/19 01/15/19 01/15/19 22:59 06:59 14:59 Intake Total 50 Output Total 200 Balance -150 Intake: IV 50 Output: Urine 200 Other: Voiding Method Urinal Weight 77.111 kg 80.5 kg General: non toxic, no distress, appears at stated age, normal weight Derm: Cyanotic toes which patient states are chronic for the last 2 years and unchanged no unusual rashes/lesions no unusual ecchymoses, warm, dry Head: atraumatic, normocephalic, symmetric Eyes: EOMI, no lid lag, anicteric sclera, pupils equal round reactive to light ENT: Nose and ears atraumatic, no thrush, no pharyngeal erythema Neck: No thyromegaly, no cervical lymphadenopathy, trachea midline, supple Mouth: no lip lesion, mucus membranes moist Cardiovascular: S1S2 reg, no murmur, positive posterior tibial pulse bilateral, no edema, capillary refill less than 2 seconds Lungs: CTA bilateral, no rhonchi, no rales , no accessory muscle use Abdominal: soft, nontender to palpation, no guarding, no appreciable organomegaly, normal bowel sounds Ext: no gross muscle atrophy, muscle strength 5 out of 5 in all 4 extremities grossly, no contractures, Neuro: CN II-XI grossly intact, light touch intact all 4 extremities, finger to nose within normal limits, Psych: Alert, oriented, appropriate affect Results CBC & Chem 7: 01/15/19 08:09 01/15/19 08:09 Labs: Abnormal Lab Results - Last 24 Hours (Table) 01/14/19 01/14/19 01/15/19 Range/Units 22:53 22:53 01:30 WBC 28.4 H (3.8-10.6) k/uL RDW 16.9 H (11.5-15.5) % Plt Count 1390 H* (150-450) k/uL Neutrophils # (1.3-7.7) k/uL Neutrophils # (Manual) 24.70 H (1.3-7.7) k/uL Monocytes # (0-1.0) k/uL Monocytes # (Manual) 2.27 H (0-1.0) k/uL Chloride 110 H (98-107) mmol/L BUN 32 H (9-20) mg/dL Glucose 152 H (74-99) mg/dL ALT 16 L (21-72) U/L Total Protein 6.2 L (6.3-8.2) g/dL Crossmatch See Detail 01/15/19 Range/Units 01:30 WBC 27.0 H (3.8-10.6) k/uL RDW 16.9 H (11.5-15.5) % Plt Count 1267 H* (150-450) k/uL Neutrophils # 24.2 H (1.3-7.7) k/uL Neutrophils # (Manual) (1.3-7.7) k/uL Monocytes # 1.3 H (0-1.0) k/uL Monocytes # (Manual) (0-1.0) k/uL Chloride (98-107) mmol/L BUN (9-20) mg/dL Glucose (74-99) mg/dL ALT (21-72) U/L Total Protein (6.3-8.2) g/dL Crossmatch CT scan - abdomen: report reviewed CT scan - pelvis: report reviewed Thrombosis Risk Factor Assmnt - DVT/VTE Prophylaxis DVT/VTE Prophylaxis: Low risk, early ambulation encouraged Assessment and Plan Assessment: Left sided retroperitoneal bleed - repeat CT scan in 1-2 days - ? timing with no drop in HgB - pain control AAA with increased size - no endoleak from prior graft site - Vascular surgery recs Idiopathic thrombosis with leukocytosis - Consult hematology - follow CBC - neutrophil predominance noted Mildly elevated potassium - IVF - repeat in AM HTN - resume atenolol - follow BP HLD - statin COPD without exacerbation - continue with inhaled steroid and long acting beta agonist - prn albuterol Tobacco abuse - cessation - nicotine replacment The patient is admitted with an anticipated greater than 2 midnight stay for evaluation ofreplacement Surrogate decision-maker: Jayson Lloyd CODE STATUS: Full code no heroics, no prolonged vent DVT prophylaxis: SCDs Discussed with: Patient, nursing Anticipated discharge date: in 2-[address]: home A total of 35 minutes was spent on the care of this complex patient more than 50% of the time was spent in counseling and care coordination.
[2019-01-15] MEDS: SODIUM CHLORIDE 0.45% 1,000 ML IV SCH ×2 (13:19→20:17)
[2019-01-15] MEDS: HYDROcodone/APAP 7.5-325MG 1 EACH TAB PO PRN ×2 (16:15→23:14)
[2019-01-15] MEDS: FAMOTIDINE 20 MG TAB PO SCH (20:13)
[2019-01-15] MEDS: TAMSULOSIN 0.4 MG CAP.ER.24H PO SCH (20:13)
[2019-01-15] MEDS: THIAMINE 100 MG TAB PO SCH (20:13)
[2019-01-15] MEDS: DULoxetine HCL 60 MG CAPSULE.DR PO SCH (20:13)
[2019-01-15] MEDS: SYMBICORT 160-4.5 MCG INHALER INHALATION SCH (20:27)
[2019-01-16 01:35] VITALS: RESP 18
[2019-01-16] MEDS: MORPHINE SULFATE 4 MG/ML SYRINGE IVP PRN ×5 (01:50→22:17)
[2019-01-16] MEDS: HYDROcodone/APAP 7.5-325MG 1 EACH TAB PO PRN ×3 (05:05→20:45)
[2019-01-16] MEDS: SODIUM CHLORIDE 0.45% 1,000 ML IV SCH ×2 (05:07→17:00)
[2019-01-16 06:04] LABS: Anisocytosis Slight; Basophils # (A) 0.1 k/uL (0-0.2); Basophils % (A) 0 %; Eosinophils # (A) 0.3 k/uL (0-0.7); Eosinophils % (A) 1 %; HCT 33.5 % (39.0-53.0); HGB 10.7 gm/dL (13.0-17.5); Lymphocytes # (A) 1.9 k/uL (1.0-4.8); Lymphocytes % (A) 8 %; MCH 27.7 pg (25.0-35.0); MCHC 31.9 g/dL (31.0-37.0); MCV 86.9 fL (80.0-100.0); Mean Platelet Volume 7.9; Monocytes # (A) 2.2 k/uL (0-1.0); Monocytes % (A) 10 %; Neutrophils # (A) 17.9 k/uL (1.3-7.7); Neutrophils % (A) 78 %; RBC 3.85 m/uL (4.30-5.90); RDW 16.6 % (11.5-15.5); WBC 22.8 k/uL (3.8-10.6)
[2019-01-16 06:15] LABS: Platelet Count 1314 k/uL (150-450)
[2019-01-16 06:33] LABS: Poikilocytosis (M) Present
[2019-01-16] MEDS: SYMBICORT 160-4.5 MCG INHALER INHALATION SCH ×2 (07:42→21:06)
[2019-01-16] MEDS ORDERED: NON FORMULARY DRUG (Calcium/Magnesium/Zinc [Calcium-Magnesium-Zinc Tablet] 1 TAB) PO SCH (08:00)
[2019-01-16] MEDS: THIAMINE 100 MG TAB PO SCH ×2 (08:44→20:42)
[2019-01-16] MEDS: CYANOCOBALAMIN 500 MCG TAB PO SCH (08:44)
[2019-01-16] MEDS: ATORVASTATIN 10 MG TAB PO SCH (08:45)
[2019-01-16] MEDS: ATENOLOL 50 MG TAB PO SCH (08:45)
[2019-01-16] MEDS: FAMOTIDINE 20 MG TAB PO SCH ×2 (08:45→20:42)
--- NOTE | 2019-01-16 09:23 | IR ---
EXAMINATION TYPE: IR angio abdominal w runoff DATE OF EXAM: 01/15/2019 COMPARISON: NONE HISTORY: Fluoroscopy time. Fluoroscopy was provided to the referring clinician.
[2019-01-16 09:59] LABS: African American GFR (CKD) >90 (>60 ml/min/1.73 sqM); Anion Gap 12 mmol/L; Blood Urea Nitrogen 33 mg/dL (9-20); Calcium 8.8 mg/dL (8.4-10.2); Carbon Dioxide 20 mmol/L (22-30); Chloride 104 mmol/L (98-107); Glucose 71 mg/dL (74-99); Non-African American GFR(CKD) 85 (>60 ml/min/1.73 sqM); Potassium 5.1 mmol/L (3.5-5.1); Sodium 136 mmol/L (137-145)
--- NOTE | 2019-01-16 13:59 | P.PN ---
Subjective Progress Note Date: 01/16/19 Patient is a 73-year-old gentleman that seen and examined today. Patient sitting up in reclining chair. Patient is without any complaints of shortness of breath or chest pain. Patient underwent an aortogram via the right common femoral artery yesterday with Dr. Ayala. Patient denies any abdominal pain, groin pain, or bleeding. Patient is tolerating a regular diet. Objective - Vital Signs Vital signs: Vital Signs Temp 99.2 F 01/16/19 11:08 Pulse 78 01/16/19 11:08 Resp 18 01/16/19 11:08 BP 132/66 01/16/19 11:08 Pulse Ox 92 L 01/16/19 11:08 Intake & Output 01/15/19 01/16/19 01/16/19 18:59 06:59 18:59 Intake Total 222 1580 1440 Balance 222 1580 1440 Weight 80.2 kg Intake: Intake, IV Titration 1100 1200 Amount Sodium Chloride 0.45% 1, 1100 1200 000 ml @ 100 mls/hr IV . Q10H [facility] Rx#:[id number] Oral 222 480 240 Other: Voiding Method Toilet Toilet Toilet Urinal # Voids 2 5 - Exam General appearance: The patient is alert, oriented, in no acute distress. HET: Head is normocephalic and atraumatic. Pupils are equal and reactive. Heart: S1 S2. Regular rate and rhythm. Lungs: No crackles or wheezes are heard. Abdomen: Soft, nontender, nondistended with bowel sounds. No palpable organomegaly or masses. Groin: Right groin with minimal ecchymosis, no hematoma noted. Extremities: Normal skin color and turgor. No cyanosis, rash, ulceration, clubbing, or edema. Radial and pedal pulses are 2/4 bilaterally. Neurological: No focal deficits. Strength and sensation are grossly intact. - Labs CBC & Chem 7: 01/17/19 06:03 01/17/19 06:03 Labs: Abnormal Lab Results - Last 24 Hours (Table) 01/16/19 01/16/19 Range/Units 05:35 05:35 WBC 22.8 H (3.8-10.6) k/uL RBC 3.85 L (4.30-5.90) m/uL Hgb 10.7 L (13.0-17.5) gm/dL Hct 33.5 L (39.0-53.0) % RDW 16.6 H (11.5-15.5) % Plt Count 1314 H* (150-450) k/uL Neutrophils # 17.9 H (1.3-7.7) k/uL Monocytes # 2.2 H (0-1.0) k/uL Sodium 136 L (137-145) mmol/L Carbon Dioxide 20 L (22-30) mmol/L BUN 33 H (9-20) mg/dL Glucose 71 L (74-99) mg/dL Assessment and Plan Assessment: Abdominal aortic aneurysm with retroperitoneal bleed with no visual endoleak Idiopathic thrombosis with leukocytosis, Hematology on consult Hypertension Hyperlipidemia Tobacco abuse Plan: Discussed patient with Dr. Ayala. Hemoglobin 10.7 down from 13.1, patient to have a repeat CBC in the morning. Patient to have CT angiogram abdomen and pelvis tomorrow. The above dictated assessment and findings were discussed with Dr. Ayala. The impression and plan of care have been directed as dictated.
[2019-01-16 14:29] LABS: Anisocytosis Slight; HCT 34.8 % (39.0-53.0); HGB 10.9 gm/dL (13.0-17.5); Hypochromasia Slight; MCH 27.6 pg (25.0-35.0); MCHC 31.2 g/dL (31.0-37.0); MCV 88.5 fL (80.0-100.0); Mean Platelet Volume 8.7; RBC 3.93 m/uL (4.30-5.90); RDW 16.4 % (11.5-15.5); WBC 18.7 k/uL (3.8-10.6)
[2019-01-16 15:00] LABS: Platelet Count 1201 k/uL (150-450)
[2019-01-16 15:01] LABS: Basophils # (M) 0.19 k/uL (0-0.2); Eosinophils # (M) 0.19 k/uL (0-0.7); Lymphocytes # (M) 0.75 k/uL (1.0-4.8); Monocytes # (M) 2.06 k/uL (0-1.0); Neutrophils # (M) 15.52 k/uL (1.3-7.7); Neutrophils % (M) 83 %; Nucleated Red Blood Cells 0 /100 WBC (0-0); Total Cells Counted 100
--- NOTE | 2019-01-16 16:33 | P.CONS ---
<Germaine Gomez - Last Filed: 01/16/19 16:22> History of Present Illness - Reason for Consult Consult date: 01/16/19 ET Requesting physician: Jessica Delgado - Chief Complaint bleeding - History of Present Illness Dr. Boudreaux is a very pleasant 73-year-old male patient who is seen and treated by Dr. Cornejo in the past for essential thrombocythemia. Patient has not seen Dr. Cornejo since at least 1999. Previously been treated with Hydrea, platelet counts, from patient report, ran in the 500-600,000 range. He has not been on treatment. Patient presented to the emergency department with back pain. Imaging was suggestive of retroperitoneal bleed. Patient had an aortogram, it appears as though bleeding spontaneously resolved. Patient's pain is currently controlled. Hemoglobin is stable. No evidence to suggest ongoing bleeding at this time. Review of Systems 14 point ROS is negative Past Medical History Past Medical History: Blood Disorder, Hyperlipidemia, Hypertension, Osteoarthritis (OA) Additional Past Medical History / Comment(s): FX PELVIS, WRIST, ELBOW, SPINE, Idiopathic thrombocytosis History of Any Multi-Drug Resistant Organisms: None Reported Past Surgical History: Appendectomy, Orthopedic Surgery, Tonsillectomy Additional Past Surgical History / Comment(s): DECOMPRESSION LAMINECTOMY, ORIF L ELBOW, L SUBMANDIBULAR GLAND EXCISED, EYE SURGERY, R CEA Past Anesthesia/Blood Transfusion Reactions: No Reported Reaction Past Psychological History: No Psychological Hx Reported Smoking Status: Current every day smoker Past Alcohol Use History: None Reported Past Drug Use History: None Reported - Past Family History Father Family Medical History: Cancer, Prostate Disorder Medications and Allergies Home Medications Medication Instructions Recorded Confirmed Type Atenolol [Tenormin] 50 mg PO DAILY@0800 01/07/17 01/15/19 History Atorvastatin Calcium [Lipitor] 10 mg PO DAILY@0800 01/07/17 01/15/19 History DULoxetine HCL [Cymbalta] 60 mg PO HS@199901/07/17 01/15/19 History Ranitidine HCl [Zantac] 150 mg PO BID@799,199901/07/17 01/15/19 History Tamsulosin [Flomax] 0.4 mg PO HS@199901/07/17 01/15/19 History Calcium/Magnesium/Zinc 1 tab PO DAILY@0800 01/15/19 01/15/19 History [Qkfpbpw-Aiplnekqv-Azcq Tablet] Cyanocobalamin (Vitamin B-12) 1,000 mcg PO DAILY@79901/15/19 01/15/19 History [Vitamin B-12] Mometasone/Formoterol [Dulera 200 2 puff INHALATION RT-BID@799,199901/15/19 01/15/19 History Mcg/5 Mcg Inhaler] Thiamine [Vitamin B-1] 50 mg PO BID@799,199901/15/19 01/15/19 History Allergies Allergy/AdvReac Type Severity Reaction Status Date / Time SANTOSH Inhibitors Allergy Unknown Verified 01/15/19 09:08 gabapentin [From Neurontin] AdvReac Severe Swelling Verified 01/15/19 09:08 Physical Exam Vitals: Vital Signs Temp Pulse Resp BP Pulse Ox 01/16/19 16:10 76 18 156/73 92 L 01/16/19 11:08 99.2 F 78 18 132/66 92 L 01/16/19 08:51 97.6 F 99 18 150/64 92 L 01/16/19 04:00 98.4 F 91 18 139/67 95 01/16/19 00:00 97.9 F 89 18 161/84 96 01/15/19 20:00 97.9 F 84 17 134/69 94 L Intake and Output 01/16/19 01/16/19 01/16/19 06:59 14:59 22:59 Intake Total 1580 1440 Balance 1580 1440 Intake: Intake, IV Titration 1100 1200 Amount Sodium Chloride 0.45% 1, 1100 1200 000 ml @ 100 mls/hr IV . Q10H [facility] Rx#:[id number] Oral 480 240 Other: Voiding Method Toilet Toilet Toilet # Voids 5 Weight 80.2 kg - Constitutional General appearance: average body habitus, cooperative, no acute distress - EENT Eyes: anicteric sclerae, EOMI ENT: hearing grossly normal, normal oropharynx - Neck Neck: no lymphadenopathy - Respiratory Respiratory: bilateral: CTA - Cardiovascular Rhythm: regular Heart sounds: normal: S1, S2 Abnormal Heart Sounds: no systolic murmur, no diastolic murmur, no rub, no S3 Gallop, no S4 Gallop, no click, no other leg Peripheral Edema: bilateral: None - Gastrointestinal General gastrointestinal: no absent bowel sounds, no decreased bowel sounds, no distended, no hepatomegaly, no hyperactive bowel sounds, normal bowel sounds, no organomegaly, no rigid, no scaphoid, soft, no splenomegaly, no tenderness, no umbilical hernia, no ventral hernia - Integumentary Integumentary: normal - Neurologic Neurologic: CNII-XII intact - Musculoskeletal Musculoskeletal: strength equal bilaterally - Psychiatric Psychiatric: A&O x's 3, appropriate affect, intact judgment & insight Results CBC & Chem 7: 01/16/19 13:11 01/16/19 05:35 Labs: Abnormal Lab Results - Last 24 Hours (Table) 01/16/19 01/16/19 01/16/19 Range/Units 05:35 05:35 13:11 WBC 22.8 H 18.7 H (3.8-10.6) k/uL RBC 3.85 L 3.93 L (4.30-5.90) m/uL Hgb 10.7 L 10.9 L (13.0-17.5) gm/dL Hct 33.5 L 34.8 L (39.0-53.0) % RDW 16.6 H 16.4 H (11.5-15.5) % Plt Count 1314 H* 1201 H* (150-450) k/uL Neutrophils # 17.9 H (1.3-7.7) k/uL Neutrophils # (Manual) 15.52 H (1.3-7.7) k/uL Lymphocytes # (Manual) 0.75 L (1.0-4.8) k/uL Monocytes # 2.2 H (0-1.0) k/uL Monocytes # (Manual) 2.06 H (0-1.0) k/uL Sodium 136 L (137-145) mmol/L Carbon Dioxide 20 L (22-30) mmol/L BUN 33 H (9-20) mg/dL Glucose 71 L (74-99) mg/dL Assessment and Plan (1) AAA (abdominal aortic aneurysm) Current Visit: Yes Status: Acute Priority: High Code(s): I71.4 - ABDOMINAL AORTIC ANEURYSM, WITHOUT RUPTURE SNOMED Code(s): 554665159 (2) Retroperitoneal bleeding Narrative/Plan: Secondary to above, Hgb stable, labs daily Current Visit: Yes Status: Acute Priority: High Code(s): R58 - HEMORRHAGE, NOT ELSEWHERE CLASSIFIED SNOMED Code(s): 50400200 (3) Essential thrombocythemia Narrative/Plan: Hx of diagnosis and treatment in the . Patient states he monitors his own labs when he has routine lab draws. He states typically in the 500,000-600,000 range. Patient's platelets are currently 1,314,000. Likely exacerbated because of acute bleed but, numerous labs drawn to evaluate for bleeding possibility. Patient would like to reestablish care with Dr. Cornejo. I will send a message to Dr. Cornejo to see if he wants to start him on any Hydrea therapy at this time or just monitor. Labs in the a.m. Current Visit: Yes Status: Chronic Priority: High Code(s): D47.3 - ESSENTIAL (HEMORRHAGIC) THROMBOCYTHEMIA SNOMED Code(s): 314537313 <Aniket,Laci - Last Filed: 01/16/19 19:11> Physical Exam Vitals: Vital Signs Temp Pulse Resp BP Pulse Ox 01/16/19 16:10 76 18 156/73 92 L 01/16/19 11:08 99.2 F 78 18 132/66 92 L 01/16/19 08:51 97.6 F 99 18 150/64 92 L 01/16/19 04:00 98.4 F 91 18 139/67 95 01/16/19 00:00 97.9 F 89 18 161/84 96 01/15/19 20:00 97.9 F 84 17 134/69 94 L Intake and Output 01/16/19 01/16/19 01/16/19 06:59 14:59 22:59 Intake Total 1580 1560 Balance 1580 1560 Intake: Intake, IV Titration 1100 1200 Amount Sodium Chloride 0.45% 1, 1100 1200 000 ml @ 100 mls/hr IV . Q10H [facility] Rx#:[id number] Oral 480 360 Other: Voiding Method Toilet Toilet Toilet # Voids 5 Weight 80.2 kg Results CBC & Chem 7: 01/16/19 13:11 01/16/19 05:35 Labs: Abnormal Lab Results - Last 24 Hours (Table) 01/16/19 01/16/19 01/16/19 Range/Units 05:35 05:35 13:11 WBC 22.8 H 18.7 H (3.8-10.6) k/uL RBC 3.85 L 3.93 L (4.30-5.90) m/uL Hgb 10.7 L 10.9 L (13.0-17.5) gm/dL Hct 33.5 L 34.8 L (39.0-53.0) % RDW 16.6 H 16.4 H (11.5-15.5) % Plt Count 1314 H* 1201 H* (150-450) k/uL Neutrophils # 17.9 H (1.3-7.7) k/uL Neutrophils # (Manual) 15.52 H (1.3-7.7) k/uL Lymphocytes # (Manual) 0.75 L (1.0-4.8) k/uL Monocytes # 2.2 H (0-1.0) k/uL Monocytes # (Manual) 2.06 H (0-1.0) k/uL Fibrinogen (200-500) mg/dL Sodium 136 L (137-145) mmol/L Carbon Dioxide 20 L (22-30) mmol/L BUN 33 H (9-20) mg/dL Glucose 71 L (74-99) mg/dL 01/16/19 Range/Units 17:28 WBC (3.8-10.6) k/uL RBC (4.30-5.90) m/uL Hgb (13.0-17.5) gm/dL Hct (39.0-53.0) % RDW (11.5-15.5) % Plt Count (150-450) k/uL Neutrophils # (1.3-7.7) k/uL Neutrophils # (Manual) (1.3-7.7) k/uL Lymphocytes # (Manual) (1.0-4.8) k/uL Monocytes # (0-1.0) k/uL Monocytes # (Manual) (0-1.0) k/uL Fibrinogen 846 H (200-500) mg/dL Sodium (137-145) mmol/L Carbon Dioxide (22-30) mmol/L BUN (9-20) mg/dL Glucose (74-99) mg/dL Assessment and Plan Plan: Patient seen and examined. Agree with above. -Case discussed in detail with the admitting service, and also with the patient. He was advised that while thrombosis is more, in essential thrombocytosis, platelet dysfunction causing bleeding can occur especially when counts of greater than 1 million. Therefore spontaneous hemorrhage from the high platelet counts is a possibility. However this is less likely as the patient has no evidence of any other platelet related bleeding such as from the nasal passages/gum/GI/. - In any case the patient needs presented during therapy, levels greater than 1 million. We will check last Hydrea dose from the office and discuss with Dr. Cornejo. If okay with him, patient will be resumed on Hydrea once it establish that his hemoglobin is stable. He can then be discharged home and follow-up in the office with Dr. Cornejo
--- NOTE | 2019-01-16 20:18 | P.PN ---
Subjective Progress Note Date: 01/16/19 (delayed charting seen at 10am) Principal diagnosis: back pain Patient is a 73-year-old male to past history of idiopathic thrombocytosis with prior treatment with hydroxyurea, hypertension, dyslipidemia, arthritis, and prior abdominal aortic aneurysm status post grafti ng approximately 2 years ago who presented to the emergency department with complaints of left-sided flank pain. In the ER he underwent an extensive evaluation. His initial vital signs were within normal limits. Initial laboratory analysis showed an elevated white blood cell count at 28.4, platelets 1390, hemoglobin 13.8, chloride 110, BUN 32, and glucose of 152. He underwent a CT of the abdomen and pelvis which showed a large abdominal aortic aneurysm increased in size compared to 03/03/17 with evidence of a very large acute retroperitoneal hemorrhage on the left side along with psoas muscle related to acute bleeding abdominal aortic aneurysm. Maximal dimension of the aneurysm was 8.3 cm which is 6 mm larger than previous exam. Dr. Ayala was contacted. Patient underwent aortogram via right common femoral artery access under ultrasound guidance which did not show any signs of an endoleak. Patient was subsequently admitted to the selective care unit. Initially his hemoglobin r emained stable. He had a 3 g drop in hemoglobin on 01/16. Hematology recs pending. Case discussed with CVT and plan is for repeat CT in a.m. Patient seen and examined at bedside. He has not had any change in his back pain, currently well controlled with medications, no nausea or vomiting, no unu sual chest pain or shortness of breath. 3. Drop in hemoglobin, need to see hematology, in need for continued IV fluids for possible repeat CTA abdomen in AM. Patient is in agreement. Objective - Vital Signs Vital signs: Vital Signs Temp 99.2 F 01/16/19 11:08 Pulse 76 01/16/19 16:10 Resp 18 01/16/19 16:10 BP 156/73 01/16/19 16:10 Pulse Ox 92 L 01/16/19 16:10 Intake & Output 01/16/19 01/16/19 01/17/19 06:59 18:59 06:59 Intake Total 1580 1560 Balance 1580 1560 Weight 80.2 kg Intake: Intake, IV Titration 1100 1200 Amount Sodium Chloride 0.45% 1, 1100 1200 000 ml @ 100 mls/hr IV . Q10H RENE Rx#:[id number] Oral 480 360 Other: Voiding Method Toilet Toilet # Voids 5 - Exam General: non toxic, no distress, appears at stated age Derm: warm, dry Head: atraumatic, normocephalic, symmetric Eyes: EOMI, no lid lag, anicteric sclera Mouth: no lip lesion, mucus membranes moist Cardiovascular: S1S2 reg, no murmur, positive posterior tibial pulse bilateral, Lungs: CTA bilateral, no rhonchi, no rales , no accessory muscle use Abdominal: soft, nontender to palpation, no guarding, no appreciable organ omegaly Ext: no gross muscle atrophy, no edema, no contractures Neuro: CN II-XI grossly intact, no focal neuro deficits Psych: Alert, oriented, appropriate affect - Labs CBC & Chem 7: 01/16/19 13:11 01/16/19 05:35 Labs: Abnormal Lab Results - Last 24 Hours (Table) 01/16/19 01/16/19 01/16/19 Range/Units 05:35 05:35 13:11 WBC 22.8 H 18.7 H (3.8-10.6) k/uL RBC 3.85 L 3.93 L (4.30-5.90) m/uL Hgb 10.7 L 10.9 L (13.0-17.5) gm/dL Hct 33.5 L 34.8 L (39.0-53.0) % RDW 16.6 H 16.4 H (11.5-15.5) % Plt Count 1314 H* 1201 H* (150-450) k/uL Neutrophils # 17.9 H (1.3-7.7) k/uL Neutrophils # (Manual) 15.52 H (1.3-7.7) k/uL Lymphocytes # (Manual) 0.75 L (1.0-4.8) k/uL Monocytes # 2.2 H (0-1.0) k/uL Monocytes # (Manual) 2.06 H (0-1.0) k/uL Fibrinogen (200-500) mg/dL Sodium 136 L (137-145) mmol/L Carbon Dioxide 20 L (22-30) mmol/L BUN 33 H (9-20) mg/dL Glucose 71 L (74-99) mg/dL 01/16/19 Range/Units 17:28 WBC (3.8-10.6) k/uL RBC (4.30-5.90) m/uL Hgb (13.0-17.5) gm/dL Hct (39.0-53.0) % RDW (11.5-15.5) % Plt Count (150-450) k/uL Neutrophils # (1.3-7.7) k/uL Neutrophils # (Manual) (1.3-7.7) k/uL Lymphocytes # (Manual) (1.0-4.8) k/uL Monocytes # (0-1.0) k/uL Monocytes # (Manual) (0-1.0) k/uL Fibrinogen 846 H (200-500) mg/dL Sodium (137-145) mmol/L Carbon Dioxide (22-30) mmol/L BUN (9-20) mg/dL Glucose (74-99) mg/dL Assessment and Plan Assessment: Left sided retroperitoneal bleed - repeat CTA abdomen in AM -No evidence of bleed on aortogram, no hx of trauma - follow CBC - Vascular surgery recs. - pain control Acute blood loss anemia - likely due to above - repeat CBC this afternoon and in AM AAA with increased size - no endoleak from prior graft site - Vascular surgery recs Essential thrombosis with leukocytosis - Hematology recs appreciated, likely will need hydrea and non function platelets, doubt this is cause of bleed - follow CBC - neutrophil predominance noted HTN - resume atenolol - follow BP HLD - statin COPD without exacerbation - continue with inhaled steroid and long acting beta agonist - prn albuterol Tobacco abuse - cessation - nicotine replacement Mildly elevated potassium, resolved Called Dr. Freire and left message that patient in hospital and will need follow- up. The patient is admitted with an anticipated greater than 2 midnight stay for evaluation ofreplacement Surrogate decision-maker: Jayson Lloyd CODE STATUS: Full code no heroics, no prolonged vent DVT prophylaxis: SCDs Discussed with: Patient, nursing Anticipated discharge date: in 2-[address]: home A total of 35 minutes was spent on the care of this complex patient more than 50% of the time was spent in counseling and care coordination.
[2019-01-16] MEDS: DULoxetine HCL 60 MG CAPSULE.DR PO SCH (20:42)
[2019-01-16] MEDS: TAMSULOSIN 0.4 MG CAP.ER.24H PO SCH (20:42)
[2019-01-17] MEDS: MORPHINE SULFATE 4 MG/ML SYRINGE IVP PRN ×2 (02:13→08:03)
[2019-01-17] MEDS: HYDROcodone/APAP 7.5-325MG 1 EACH TAB PO PRN (05:09)
[2019-01-17] MEDS: SODIUM CHLORIDE 0.45% 1,000 ML IV SCH ×2 (06:18→09:47)
[2019-01-17 06:30] LABS: Anisocytosis Slight; HCT 33.3 % (39.0-53.0); HGB 10.3 gm/dL (13.0-17.5); Hypochromasia Slight; MCH 27.4 pg (25.0-35.0); MCHC 31.1 g/dL (31.0-37.0); MCV 88.4 fL (80.0-100.0); Mean Platelet Volume 7.6; RBC 3.77 m/uL (4.30-5.90); RDW 16.3 % (11.5-15.5); WBC 15.8 k/uL (3.8-10.6)
[2019-01-17 06:38] LABS: ALT 20 U/L (21-72); AST 36 U/L (17-59); African American GFR (CKD) >90 (>60 ml/min/1.73 sqM); Albumin 3.6 g/dL (3.5-5.0); Alkaline Phosphatase 69 U/L (38-126); Anion Gap 8 mmol/L; Blood Urea Nitrogen 23 mg/dL (9-20); Calcium 9.1 mg/dL (8.4-10.2); Carbon Dioxide 25 mmol/L (22-30); Chloride 100 mmol/L (98-107); Glucose 92 mg/dL (74-99); Non-African American GFR(CKD) 80 (>60 ml/min/1.73 sqM); Potassium 4.6 mmol/L (3.5-5.1); Sodium 133 mmol/L (137-145); Total Bilirubin 1.1 mg/dL (0.2-1.3); Total Protein 6.3 g/dL (6.3-8.2)
[2019-01-17 06:49] LABS: Platelet Count 1331 k/uL (150-450)
[2019-01-17 07:14] LABS: Eosinophils # (M) 0.32 k/uL (0-0.7); Large Platelets Present; Lymphocytes # (M) 1.26 k/uL (1.0-4.8); Monocytes # (M) 1.26 k/uL (0-1.0); Neutrophils # (M) 12.96 k/uL (1.3-7.7); Neutrophils % (M) 82 %; Nucleated Red Blood Cells 0 /100 WBC (0-0); Total Cells Counted 100
[2019-01-17] MEDS: THIAMINE 100 MG TAB PO SCH (08:03)
[2019-01-17] MEDS: ATENOLOL 50 MG TAB PO SCH (08:03)
[2019-01-17] MEDS: ATORVASTATIN 10 MG TAB PO SCH (08:03)
[2019-01-17] MEDS: CYANOCOBALAMIN 500 MCG TAB PO SCH (08:03)
[2019-01-17] MEDS: FAMOTIDINE 20 MG TAB PO SCH (08:03)
[2019-01-17 08:10] VITALS: BP 133/70; PULSE 68; TEMP 97.8
[2019-01-17] MEDS: SYMBICORT 160-4.5 MCG INHALER INHALATION SCH (09:06)
--- NOTE | 2019-01-17 09:10 | CT ---
EXAMINATION TYPE: CT angio abdomen pelvis DATE OF EXAM: 01/17/2019 7:37 AM COMPARISON: 01/15/2019 HISTORY: retroperitoneal bleed, AAA CT DLP: 2393.6 mGycm Automated exposure control for dose reduction was used. TECHNIQUE: Performed without and with IV Contrast, patient injected with 100 mL of Isovue 370. FINDINGS: Visualized portions of the chest display coronary artery calcifications are only partially visualized , bibasilar atelectasis (left greater than right, cardiomegaly and at least moderate gynecomastia crissy t is partially visualized. The unenhanced images demonstrate some areas of intermediate attenuation adjacent to the abdominal ao rta and within the retroperitoneal hemorrhage appearing subacute hemorrhage. At a similar location on image 73 in comparison to the prior exam on image 51 assess the morphology of the aorta and surround ing calcifications the left-sided retroperitoneal hemorrhage along the psoas previously measured 10.3 x 4.7 and currently measures 10.2 x 3.8, slightly decreased in fullness. The retroperitoneal hemorrh age continues caudally. At the level of the left common iliac artery at a similar location on image 1 13 in comparison to the prior on image 75 the hematoma measures 7.7 x 5.4 cm as opposed to the prior of 7.7 x 5.3 cm, overall unchanged. Full craniocaudal extent measures approximately 19.2 cm. There is no active extravasation of contrast seen. Aortobiiliac endograft remains. The rosebud aortic lumen with internal hemorrhage measures 8.5 x 7.4 cm on image 84 and previously measured 8.4 x 7.3 cm on image 55 on the prior. Some blood products extend into the pelvis and presacral space. Layering debris within the gallbladder likely represents vicarious excretion of contrast rather than cholelithiasis as cholelithiasis was not seen on the prior exam. No nephrolithiasis on the unenhanced image. Lobulated hepatic cyst is seen measuring 2 cm in segment 4A and 1.2 cm left hepatic lobe simp le cyst. Other scattered lesions that are subcentimeter are too small to accurately characterize. Shiv ateral renal cysts are redemonstrated as seen on the recent prior. Adrenal glands, spleen, and pancre as are unremarkable. No dilated large or small bowel. Few scattered colonic diverticuli without evide nce of acute diverticulitis. Incomplete distention of the urinary bladder. Mild anasarca. Diffuse oss eous demineralization and degenerative changes of the spine with postoperative changes of the lumbar spine. Old healed fractures of right L1-L3 transverse processes. Redemonstration of a compression def ormity at T12. IMPRESSION: 1. STABLE LARGE RETROPERITONEAL HEMATOMA WITH INTERMEDIATE DENSITY BLOOD PRODUCTS FROM SUBACUTE HEMOR RHAGE WITHOUT EVIDENCE OF ACTIVE EXTRAVASATION OR ENLARGEMENT FROM THE PRIOR OF 01/15/2019. 2. SEVERE ANEURYSMAL DILATATION OF THE ABDOMINAL AORTA IS OVERALL STABLE MEASURING APPROXIMATELY 8.5 CM WHEN MEASURED AT A SIMILAR LOCATION TO THE PRIOR OF 01/15/2019 AND CONTAINS MIXED DENSITY HEMORRHAG E WITHIN THE CHITINA AORTIC LUMEN. NO ACTIVE EXTRAVASATION SEEN.
--- NOTE | 2019-01-17 09:49 | P.PN ---
Subjective Progress Note Date: 01/17/19 Patient seen and examined. No complaints. Overall feeling well, slightly decrease in energy. No abdominal or back pains. No chest pains or shortness of breath. No leg pains that are different from his chronic issues. No nausea and vomiting Objective - Vital Signs Vital signs: Vital Signs Temp 97.8 F 01/17/19 08:00 Pulse 68 01/17/19 08:00 Resp 18 01/17/19 08:00 BP 133/70 01/17/19 08:00 Pulse Ox 92 L 01/17/19 08:00 Intake & Output 01/16/19 01/17/19 01/17/19 18:59 06:59 18:59 Intake Total 1560 2120 240 Balance 1560 2120 240 Weight 81.6 kg Intake: Intake, IV Titration 1200 1400 Amount Sodium Chloride 0.45% 1, 1200 1400 000 ml @ 100 mls/hr IV . Q10H RENE Rx#:[id number] Oral 360 720 240 Other: Voiding Method Toilet Toilet Toilet # Voids 5 - Exam Genitals a pleasant cooperative male in no acute distress. HEENT is normocephalic, atraumatic, excellent motion intact. Heart is regular. No respiratory distress. Abdomen soft, nontender nondistended. Bilateral groins are clean and dry. No hematoma - Labs CBC & Chem 7: 01/17/19 06:03 01/17/19 06:03 Labs: Abnormal Lab Results - Last 24 Hours (Table) 01/16/19 01/16/19 01/16/19 Range/Units 05:35 13:11 17:28 WBC 18.7 H (3.8-10.6) k/uL RBC 3.93 L (4.30-5.90) m/uL Hgb 10.9 L (13.0-17.5) gm/dL Hct 34.8 L (39.0-53.0) % RDW 16.4 H (11.5-15.5) % Plt Count 1201 H* (150-450) k/uL Neutrophils # (Manual) 15.52 H (1.3-7.7) k/uL Lymphocytes # (Manual) 0.75 L (1.0-4.8) k/uL Monocytes # (Manual) 2.06 H (0-1.0) k/uL Fibrinogen 846 H (200-500) mg/dL Sodium 136 L (137-145) mmol/L Carbon Dioxide 20 L (22-30) mmol/L BUN 33 H (9-20) mg/dL Glucose 71 L (74-99) mg/dL ALT (21-72) U/L 01/17/19 01/17/19 Range/Units 06:03 06:03 WBC 15.8 H (3.8-10.6) k/uL RBC 3.77 L (4.30-5.90) m/uL Hgb 10.3 L (13.0-17.5) gm/dL Hct 33.3 L (39.0-53.0) % RDW 16.3 H (11.5-15.5) % Plt Count 1331 H* (150-450) k/uL Neutrophils # (Manual) 12.96 H (1.3-7.7) k/uL Lymphocytes # (Manual) (1.0-4.8) k/uL Monocytes # (Manual) 1.26 H (0-1.0) k/uL Fibrinogen (200-500) mg/dL Sodium 133 L (137-145) mmol/L Carbon Dioxide (22-30) mmol/L BUN 23 H (9-20) mg/dL Glucose (74-99) mg/dL ALT 20 L (21-72) U/L Assessment and Plan Assessment: Abdominal aortic aneurysm status post endoluminal graft repair Left-sided retroperitoneal bleed, no evidence of endoleak on angiogram imaging Idiopathic thrombocytosis, leukocytosis, hematology on consult Hypertension and hyperlipidemia Tobacco abuse Plan: At this time the patient remains hemodynamically stable with a stabilization of his hemoglobin. He denies any pain and clinically is stable. CT angiogram was performed this morning had no evidence of extravasation, still with retroperitoneal blood as previous, essentially unchanged. At this point there is no further intervention planned, uncertain of the source of his retroperitoneal bleed. Appreciate railroad design consultant input. From our standpoint patient likely can go home with follow-up
--- NOTE | 2019-01-17 10:37 | P.DS ---
Providers Date of admission: 01/15/19 02:29 Expected date of discharge: 01/17/19 Attending physician: Doe Chow MD Consults: 01/15/19 02:27 Consult Physician Stat Consulting Provider: Epifanio Ayala Consult Reason/Comments: AAA Do you want consulting provider notified?: Already Contacted 01/15/19 08:47 Consult Physician Urgent Consulting Provider: Laci Marcial Consult Reason/Comments: Thrombocytosis Do you want consulting provider notified?: Yes Primary care physician: Ulices [facility] Course: Patient is a 73-year-old male with past medical history of idiopathic thrombocytosis with prior treatment with hydroxyurea, hypertension, dyslipidemia and prior abdominal aortic aneurysm status post grafting 2 years ago presented to the ED for left-sided flank pain. Initial evaluation in the ED showed elevated white blood cell count at 28.4, platelets of 1390 and hemoglobin of 13.8. CT of the abdomen and pelvis showed a large abdominal aortic aneurysm increased in size compared to 02/28/2017 with evidence of very large acute retroperitoneal hemorrhage on the left side along the psoas muscle related to acute bleeding abdominal aortic aneurysm. Vascular surgery Dr. Ayala was consulted. Patient underwent aortogram via right common femoral artery which did not show any signs of an endoleak. Recommendation was made to repeat CT angiogram and a couple of days to see if there is any filling of the retroperitoneal bleed. Patient's hemoglobin on admission was 13.1 which dropped acutely to 10.7 on 01/16/2019. His hemoglobin since then remained stable. Hematology was consulted and recommended that the retroperitoneal bleed was less likely due to platelet dysfunction as there were no other platelet related bleeding. Patient was seen and examined. No acute events overnight. Hemoglobin this morning remained stable from 10.9-10.3. Patient underwent CTA abdomen pelvis this morning, radiologically read pending. He denies any chest pain, shortness breath or palpitations. No nausea or vomiting. No fever or chills. General: non toxic, no distress, appears at stated age Derm: warm, dry Head: atraumatic, normocephalic, symmetric Eyes: EOMI, no lid lag, anicteric sclera Mouth: no lip lesion, mucus membranes moist Cardiovascular: S1S2 reg, no murmur, positive posterior tibial pulse bilateral, Lungs: CTA bilateral, no rhonchi, no rales , no accessory muscle use Abdominal: soft, nontender to palpation, no guarding, no appreciable organomegaly Ext: no gross muscle atrophy, no edema, no contractures Neuro: CN II-XI grossly intact, no focal neuro deficits Psych: Alert, oriented, appropriate affect Assessment and Plan Left-sided retroperitoneal bleed Acute blood loss anemia Abdominal aortic aneurysm with increased size Essential thrombocytosis with leukocytosis Hypertension Dyslipidemia COPD without exacerbation Tobacco abuse Resolved: Hyperkalemia Patient with no evidence of bleeding on aortogram with no history of trauma. Hemoglobin remaining stable since 01/16/2019. Plans: Repeat CTA abdomen and pelvis obtained, read pending. Follow vascular surgery recommendations. Hemoglobin 10.9-10.3. Likely due to above. Plans: Repeat CBC 1 day after discharge. Plans: Follow vascular surgery recommendations. Platelet count 1331, leukocytosis 15.8. Plans: Possibly restart hydroxyurea prior to discharge. Follow hematology recommendations. BP 133/70. Plans: Resume atenolol. Monitor vitals, adjust medications as necessary. Plans: Resume statin. Plans: Resume Symbicort. Albuterol neb as needed for shortness of breath and wheezing. Needs to quit. Plans: Nicotine replacement as needed. [Hemoglobin remaining stable. Follow CTA abdomen and pelvis. Likely DC today with vascular surgery clearance. Needs to repeat CBC in 1 day. Follow hematology for essential thrombocytosis.] CTA abdomen and pelvis shows stable large retroperitoneal hematoma with intermediate density blood products from subacute hemorrhage without evidence of active extravasation or enlargement from the prior CT on 01/15/2019. Discussed with Dr. Ladd, patient cleared for discharge, follow up with Dr. Ayala in a few weeks. Pertinent Studies: KUB, CT abdomen and pelvis, CTA abdomen and pelvis Procedures: Aortogram Patient Condition at Discharge: Stable Plan - Discharge Summary New Discharge Prescriptions: Continue Tamsulosin [Flomax] 0.4 mg PO HS@2000 Ranitidine HCl [Zantac] 150 mg PO BID@0800,1999 Atorvastatin Calcium [Lipitor] 10 mg PO DAILY@0800 Atenolol [Tenormin] 50 mg PO DAILY@0800 DULoxetine HCL [Cymbalta] 60 mg PO HS@2000 Calcium/Magnesium/Zinc [Bfbqmhi-Lxbildnkh-Uazv Tablet] 1 tab PO DAILY@0800 Mometasone/Formoterol [Dulera 200 Mcg/5 Mcg Inhaler] 2 puff INHALATION RT- BID@ Cyanocobalamin (Vitamin B-12) [Vitamin B-12] 1,000 mcg PO DAILY@799 Thiamine [Vitamin B-1] 50 mg PO BID@ Discharge Medication List Atenolol [Tenormin] 50 mg PO DAILY@0801/07/17 [History] Atorvastatin Calcium [Lipitor] 10 mg PO DAILY@79901/07/17 [History] DULoxetine HCL [Cymbalta] 60 mg PO HS@199901/07/17 [History] Ranitidine HCl [Zantac] 150 mg PO BID@01/07/17 [History] Tamsulosin [Flomax] 0.4 mg PO HS@199901/07/17 [History] Calcium/Magnesium/Zinc [Iwvkvsy-Juejnvxty-Lhkf Tablet] 1 tab PO DAILY@79901/15/19 [History] Cyanocobalamin (Vitamin B-12) [Vitamin B-12] 1,000 mcg PO DAILY@79901/15/19 [H istory] Mometasone/Formoterol [Dulera 200 Mcg/5 Mcg Inhaler] 2 puff INHALATION RT- BID@01/15/19 [History] Thiamine [Vitamin B-1] 50 mg PO BID@01/15/19 [History] Follow up Appointment(s)/Referral(s): Ulices Freire MD [Primary Care Provider] - 1-2 days Epifanio Ayala DO [STAFF PHYSICIAN] - 1 Week Gurdeep Cornejo MD [STAFF PHYSICIAN] - 1 Week Ambulatory/Diagnostic Orders: Complete Blood Count w/diff [LAB.AMB] Time Frame: 1 Day, Location: None Selected Activity/Diet/Wound Care/Special Instructions: Diet: Cardiac Follow up PCP in 3 days of DC. Repeat CBC in 1 day. Follow up PCP for results. Follow up Dr. Ayala within 1 week of DC. Take all medications as advised. Discharge Disposition: HOME SELF-CARE
[2019-01-17] MEDS ORDERED: HYDROXYUREA 500 MG CAP PO SCH (10:45)
== END 2019-01-17 15:30 | disposition home or self-care (01) | DRG 315 ==
LOC: EC 22:13 → 2SICU 01-15 02:29 → 3SCARD 01-15 03:46
PROVIDERS: ADMIT Internal Medicine; ATTEND Internal Medicine
PROC: B4101ZZ Fluoroscopy of Abdominal Aorta using Low Osmolar Contrast (ICD-10-PCS; principal; 2019-01-15 02:29)
DX: R58 Hemorrhage, not elsewhere classified (principal); D62 Acute posthemorrhagic anemia; D47.3 Essential (hemorrhagic) thrombocythemia; E78.5 Hyperlipidemia, unspecified; D72.829 Elevated white blood cell count, unspecified; F17.210 Nicotine dependence, cigarettes, uncomplicated; J44.9 Chronic obstructive pulmonary disease, unspecified; M54.9 Dorsalgia, unspecified; N20.0 Calculus of kidney; Z79.899 Other long term (current) drug therapy; Z87.442 Personal history of urinary calculi; I71.4 Abdominal aortic aneurysm, without rupture; Z88.8 Allergy status to other drugs, medicaments and biological substances
CPT/HCPCS: 36200; 36415; 74018; 74174; 74177; 75625; 76937; 80048; 80053; 83735; 84100; 85025; 85027; 85230; 85384; 85385; 86850; 86900; 86901; 86920; 94640; 96361; 96374; 99291

== ENCOUNTER → 2019-02-23 | Outpatient (CLI) | payer MEDICARE ==
--- NOTE | 2019-02-23 14:29 | CT ---
EXAMINATION TYPE: CT angio abdomen pelvis DATE OF EXAM: 02/23/2019 COMPARISON: 01/17/2019, 01/15/2019, 03/03/2017 HISTORY: 73-year-old male AAA, follow-up. TECHNIQUE: Contiguous axial scanning of the abdomen and pelvis before and after administration of 100 ml Omnipaque 370 IV contrast. Coronal/sagittal MIP reconstructions performed. 3-D reconstructions g enerated on a dedicated independent workstation. CT DLP: 1656 mGycm Automated exposure control for dose reduction was used. FINDINGS: Heart normal size without pericardial effusion. Coronary vessel calcifications are a marker for adam nary artery disease. Strandy atelectasis peripheral base. Aneurysmal ascending aorta at 4.3 cm. Ectatic lower descending thoracic aorta at 2.9 cm. Upper abdominal aorta aneurysmal at 3.1 cm. Aortobiiliac endovascular stent graft is redemonstrated beginning just at the level of the renal abebe yanique. [place] sac measures 8.2 x 7.3 cm versus previously measuring 8.5 x 7.4 cm. Stable to minimally smaller. Much of the previously seen surrounding hemorrhage has cleared. There is residual strandy he morrhagic material along the posterior left retroperitoneum and an organized hematoma along the left psoas musculature measuring 7.9 x 5.0 cm demonstrating central low density. Previously measuring 10. 2 x 3.8 cm. A second organized hematoma is present more inferiorly at the level of the left common il iac artery, anterior to the left psoas measuring 4.9 x 4.3 cm versus 7.7 x 5.4 cm, previously. On arterial phase imaging, no extravasation is seen into the nikolai sac. Delayed scan was not acquire d. Of note, on sagittal series 17 image 93, at the level of the proximal landing zone, the posterior asp ect of the stent graft has pulled away from the aortic wall and there is intervening mural based thro mbus interposed between the outside wall of the stent graft and aortic wall for a span of 1.6 cm. No dilated small bowel, free fluid, or free air. No mesenteric or retroperitoneal lymphadenopathy. Sc attered [id number] stool. No pericolonic inflammatory change. Focal moderate atherosclerotic narrowing proximal left common femoral artery similar to prior. Bladder urine distended. Prostate gland measures 3.7 cm wide. No abnormal fluid collection in the pel vis or pelvic lymphadenopathy. Small fat-containing left indirect inguinal hernia. Bones: Bridging anterior endplate spondylosis within the thoracic spine. Status post L3-L5 posterior and interbody fusion. Chronic anterior wedging of T12 and grade 1 retrolisthesis at L1-L2 and L2-L3. Degenerative changes of the pubic symphysis and both hips. Additional degenerative changes right SI j oint. IMPRESSION: 1. Aortobiiliac endovascular stent graft redemonstrated. There has been improvement with clearance of much of the hemorrhagic material surrounding the nikolai sac. The nikolai sac measures 8.2 x 7.3 cm, s table to slightly smaller from prior where it measured 8.5 x 7.4 cm. 2. The previous left-sided retroperitoneal hemorrhage has organized into a chronic, low density hemat flo along the left psoas measuring 7.9 x 5.0 cm (versus 10.2 x 3.8 cm, previously). 3. A second organized hematoma just below has also decreased in size measuring 4.9 x 4.3 cm versus 7. 7 x 5.4 cm, previously. 4. Of note, near the level of the renal arteries, there is some separation between the posterior wall of the proximal stent and the posterior aortic wall with mural-based thrombus interposed here for a span of 1.6 cm. Refer to sagittal image 93 to determine if any further management needs to be conside red. 5. Aneurysmal ascending aorta at 4.3 cm.
== END | disposition home or self-care (01) ==
LOC: RADCTMAIN 10:24
PROVIDERS: ATTEND Surgery
DX: I71.4 Abdominal aortic aneurysm, without rupture (principal)
CPT/HCPCS: 74174; Q9967

== ENCOUNTER → 2019-06-30 | Outpatient (CLI) | payer MEDICARE ==
[2019-06-30 11:36] LABS: ABG Base Excess -3.7 mmol/L; ABG HCO3 21 mmol/L (21-25); ABG Oxygen Saturation 93.9 % (94-97); ABG PCO2 33 mmHg (35-45); ABG PH 7.41 (7.35-7.45); ABG PO2 83 mmHg (83-108); ABG TCO2 22 mmol/L (19-24); Allen Test Performed? Yes
== END | disposition home or self-care (01) ==
LOC: LABWHC1 10:59
PROVIDERS: ATTEND Internal Medicine Critical Care Medicine
DX: J44.9 Chronic obstructive pulmonary disease, unspecified (principal); R09.02 Hypoxemia
CPT/HCPCS: 36600; 82805

== ENCOUNTER → 2019-06-30 | Outpatient (CLI) | payer MEDICARE ==
[2019-06-30 19:47] LABS: Anion Gap 10.7 mmol/L (4.00-12.00); Carbon Dioxide 23.3 mmol/L (21.6-31.8); Non-African American GFR(CKD) 31.9 (60.0-200.0); Potassium 4.3 mmol/L (3.5-5.5)
== END | disposition home or self-care (01) ==
LOC: LABWHC1 10:55
PROVIDERS: ATTEND Surgery
DX: Z01.818 Encounter for other preprocedural examination (principal); Z11.59 Encounter for screening for other viral diseases; L97.509 Non-pressure chronic ulcer of other part of unspecified foot with unspecified severity
CPT/HCPCS: 36415; 80051; 82565; 84520; 87635

== ENCOUNTER 2019-07-03 22:04 | Inpatient (IN) | payer MEDICARE ==
[2019-07-03] MEDS ORDERED: IPRATROPIUM-ALBUTEROL 3 ML NEB INHALATION STA (22:35)
[2019-07-03] MEDS ORDERED: ALBUTEROL NEBULIZED 2.5 MG/3 ML INHALATION STA ×2 (23:34→23:50)
[2019-07-03] MEDS ORDERED: SODIUM CHLORIDE 0.9% 500 ML 500 ML IV STA (23:50)
[2019-07-03] MEDS ORDERED: methylPREDNISolone SOD SUCCI 125 MG/2 ML VIAL IV STA (23:50)
[2019-07-03] MEDS ORDERED: IPRATROPIUM 0.5 MG/2.5 ML NEBU INHALATION STA (23:50)
[2019-07-03] MEDS ORDERED: SODIUM CHLORIDE 0.9% 1,000 ML IV STA ×2 (23:50)
[2019-07-03] MEDS ORDERED: HYDROmorphone 0.5 MG/0.5 ML SYRINGE IVP STA (23:51)
--- NOTE | 2019-07-03 23:51 | ED ---
SOB HPI - General Chief Complaint: Shortness of Breath Stated Complaint: Shortness of Breath Time Seen by Provider: 07/03/19 23:33 Source: patient, family, RN notes reviewed, old records reviewed, Caregiver Mode of arrival: wheelchair Limitations: altered mental status - History of Present Illness Initial Comments: This is a 73-year-old male poor historian patient Dese for evaluation regarding altered mental status not acting appropriately not being appropriate for the patient's daughter patient diagnoses of the patient, he woke up progressively worsening throughout the day. History of alcohol abuse with multiple medical comorbidities. Patient unable to give history MD Complaint: shortness of breath, cough, chest pain, anxiety -: hour(s) Severity: severe Severity scale (1-10): 8 Consistency: constant Improves With: nothing, rest Known History Of: COPD, congestive heart failure, recurrent pneumonia, aspiration pneumonia Context: recent URI, anxiety, other (Alcohol abuse) Associated Symptoms: cough, sputum production, palpitations Treatments Prior to Arrival: none - Related Data Home Medications Medication Instructions Recorded Confirmed Atenolol [Tenormin] 50 mg PO DAILY@79901/07/17 06/30/19 Atorvastatin Calcium [Lipitor] 10 mg PO DAILY@79901/07/17 06/30/19 DULoxetine HCL [Cymbalta] 60 mg PO HS@199901/07/17 06/30/19 Ranitidine HCl [Zantac] 150 mg PO BID@799,199901/07/17 06/30/19 Tamsulosin [Flomax] 0.4 mg PO HS@199901/07/17 06/30/19 Calcium/Magnesium/Zinc 1 tab PO DAILY@79901/15/19 06/30/19 [Ukceixt-Wdjmplgoe-Veeu Tablet] Cyanocobalamin (Vitamin B-12) 1,000 mcg PO DAILY@79901/15/19 06/30/19 [Vitamin B-12] Mometasone/Formoterol [Dulera 200 2 puff INHALATION RT-BID@799,199901/15/19 06/30/19 Mcg/5 Mcg Inhaler] Thiamine [Vitamin B-1] 100 mg PO BID@799,199901/15/19 06/30/19 Albuterol Nebulized [Ventolin 2.5 mg INHALATION QID 06/30/19 06/30/19 Nebulized] Ibuprofen [Motrin Ib] 800 mg PO Q6H PRN 06/30/19 06/30/19 Prednisone Taper 1 tab PO DAILY 06/30/19 Xanax (Unknown Dose) 1 tab PO HS 06/30/19 Previous Rx's Medication Instructions Recorded Hydroxyurea [Hydrea] 500 mg PO BID #60 cap 01/17/19 Allergies Allergy/AdvReac Type Severity Reaction Status Date / Time SANTOSH Inhibitors Allergy Unknown Verified 07/03/19 22:10 gabapentin [From Neurontin] AdvReac Severe Swelling Verified 07/03/19 22:10 Review of Systems ROS Statement: Those systems with pertinent positive or pertinent negative responses have been documented in the HPI. ROS Other: All systems not noted in ROS Statement are negative. Past Medical History Past Medical History: Blood Disorder, Hyperlipidemia, Hypertension, Osteoarthritis (OA) Additional Past Medical History / Comment(s): FX PELVIS, WRIST, ELBOW, SPINE, Idiopathic thrombocytosis History of Any Multi-Drug Resistant Organisms: None Reported Past Surgical History: Appendectomy, Orthopedic Surgery, Tonsillectomy Additional Past Surgical History / Comment(s): DECOMPRESSION LAMINECTOMY, ORIF L ELBOW, L SUBMANDIBULAR GLAND EXCISED, EYE SURGERY, R CEA Past Anesthesia/Blood Transfusion Reactions: No Reported Reaction Past Psychological History: No Psychological Hx Reported Past Alcohol Use History: None Reported - Past Family History Father Family Medical History: Cancer, Prostate Disorder General Exam Limitations: no limitations General appearance: alert, anxious, in distress Head exam: Present: atraumatic, normocephalic, normal inspection Eye exam: Present: normal appearance, PERRL, EOMI. Absent: scleral icterus, conjunctival injection, periorbital swelling ENT exam: Present: normal exam, mucous membranes dry Neck exam: Present: normal inspection. Absent: tenderness, meningismus, lymphadenopathy Respiratory exam: Present: respiratory distress, wheezes, rhonchi, accessory muscle use, decreased breath sounds, prolonged expiratory. Absent: rales, stridor Cardiovascular Exam: Present: normal rhythm, tachycardia, normal heart sounds. Absent: systolic murmur, diastolic murmur, rubs, gallop, clicks GI/Abdominal exam: Present: soft, normal bowel sounds. Absent: distended, tenderness, guarding, rebound, rigid Extremities exam: Present: normal inspection, full ROM, normal capillary refill. Absent: tenderness, pedal edema, joint swelling, calf tenderness Back exam: Present: normal inspection Neurological exam: Present: alert, oriented X3, CN II-XII intact Psychiatric exam: Present: normal affect, normal mood Skin exam: Present: warm, dry, intact, normal color. Absent: rash Course Vital Signs 07/03/19 07/03/19 07/03/19 22:07 22:14 22:37 Temperature 99.2 F Pulse Rate 109 H 104 H Respiratory 30 H 24 Rate Blood Pressure 90/49 O2 Sat by Pulse Oximetry 07/03/19 07/03/19 07/03/19 22:47 23:00 23:56 Temperature Pulse Rate 104 H 100 101 H Respiratory 24 Rate Blood Pressure 94/72 O2 Sat by Pulse 94 L Oximetry 07/04/19 07/04/19 07/04/19 00:00 00:58 01:00 Temperature Pulse Rate 98 96 99 Respiratory 27 H 27 H Rate Blood Pressure 87/72 83/63 O2 Sat by Pulse 93 L 96 Oximetry 07/04/19 07/04/19 02:00 02:20 Temperature Pulse Rate 96 92 Respiratory 24 24 Rate Blood Pressure 97/77 103/79 O2 Sat by Pulse 100 100 Oximetry - Reevaluation(s) Reevaluation #1: 07/04/19 02:50 Medical records reviewed Reevaluation #2: 07/04/19 02:50 Patient is improving significantly of fluid resuscitation - Consultations Consultation #1: Spoke with Dr. Dunbar who is agreeable for admission Spoke with ICU who is agreeable for ICU placement Medical Decision Making - Medical Decision Making 73 male to the ER for evaluation patient presents today for evaluation regards to significant shortness of breath, and respiratory distress hypoxic with COPD however And respiratory failure complicated by sepsis pneumonia urinary tract infection probable underlying alcohol withdrawal. - Lab Data Result diagrams: 07/03/19 22:23 07/03/19 22:23 Lab Results 07/03/19 07/03/19 07/03/19 Range/Units 22:23 22:23 22:23 WBC 4.8 (3.8-10.6) k/uL RBC 2.14 L (4.30-5.90) m/uL Hgb 8.9 L (13.0-17.5) gm/dL Hct 28.4 L (39.0-53.0) % MCV 132.4 H (80.0-100.0) fL MCH 41.6 H (25.0-35.0) pg MCHC 31.4 (31.0-37.0) g/dL RDW 15.9 H (11.5-15.5) % Plt Count 64 L (150-450) k/uL Neutrophils % (Manual) 94 % Band Neutrophils % 2 % Lymphocytes % (Manual) 2 % Monocytes % (Manual) 2 % Neutrophils # (Manual) 4.60 (1.3-7.7) k/uL Lymphocytes # (Manual) 0.10 L (1.0-4.8) k/uL Monocytes # (Manual) 0.10 (0-1.0) k/uL Nucleated RBCs 1 H (0-0) /100 WBC Manual Slide Review Performed Hypersegmented Neuts Present Polychromasia Present Hypochromasia Moderate Macrocytosis Marked A Target Cells Present PT 12.8 H (9.0-12.0) sec INR 1.3 H (<1.2) APTT 25.4 (22.0-30.0) sec VBG pH 7.25 L (7.31-7.41) VBG pCO2 37 (37-51) mmHg VBG HCO3 16 L (24-28) mmol/L Sodium (137-145) mmol/L Potassium (3.5-5.1) mmol/L Chloride (98-107) mmol/L Carbon Dioxide (22-30) mmol/L Anion Gap mmol/L BUN (9-20) mg/dL Creatinine (0.66-1.25) mg/dL Est GFR (CKD-EPI)AfAm (>60 ml/min/1.73 sqM) Est GFR (CKD-EPI)NonAf (>60 ml/min/1.73 sqM) Glucose (74-99) mg/dL Plasma Lactic Acid Lopez (0.7-2.0) mmol/L Calcium (8.4-10.2) mg/dL Phosphorus (2.5-4.5) mg/dL Magnesium (1.6-2.3) mg/dL Total Bilirubin (0.2-1.3) mg/dL AST (17-59) U/L ALT (4-49) U/L Alkaline Phosphatase (38-126) U/L Ammonia (<30) umol/L Creatine Kinase (55-170) U/L CK-MB (CK-2) (0.0-2.4) ng/mL Troponin I (0.000-0.034) ng/mL NT-Pro-B Natriuret Pep pg/mL Total Protein (6.3-8.2) g/dL Albumin (3.5-5.0) g/dL Urine Color Urine Appearance (Clear) Urine pH (5.0-8.0) Ur Specific [employer] (1.001-1.035) Urine Protein (Negative) Urine Glucose (UA) (Negative) Urine Ketones (Negative) Urine Blood (Negative) Urine Nitrite (Negative) Urine Bilirubin (Negative) Urine Urobilinogen (<2.0) mg/dL Ur Leukocyte Esterase (Negative) Urine RBC (0-5) /hpf Urine WBC (0-5) /hpf Urine WBC Clumps (None) /hpf Ur Squamous Epith Cells (0-4) /hpf Urine Bacteria (None) /hpf Urine Mucus (None) /hpf Salicylates mg/dL Acetaminophen ug/mL Serum Alcohol mg/dL 07/03/19 07/03/19 07/03/19 Range/Units 22:23 22:23 22:23 WBC (3.8-10.6) k/uL RBC (4.30-5.90) m/uL Hgb (13.0-17.5) gm/dL Hct (39.0-53.0) % MCV (80.0-100.0) fL MCH (25.0-35.0) pg MCHC (31.0-37.0) g/dL RDW (11.5-15.5) % Plt Count (150-450) k/uL Neutrophils % (Manual) % Band Neutrophils % % Lymphocytes % (Manual) % Monocytes % (Manual) % Neutrophils # (Manual) (1.3-7.7) k/uL Lymphocytes # (Manual) (1.0-4.8) k/uL Monocytes # (Manual) (0-1.0) k/uL Nucleated RBCs (0-0) /100 WBC Manual Slide Review Hypersegmented Neuts Polychromasia Hypochromasia Macrocytosis Target Cells PT (9.0-12.0) sec INR (<1.2) APTT (22.0-30.0) sec VBG pH (7.31-7.41) VBG pCO2 (37-51) mmHg VBG HCO3 (24-28) mmol/L Sodium 139 (137-145) mmol/L Potassium 5.1 (3.5-5.1) mmol/L Chloride 104 (98-107) mmol/L Carbon Dioxide 15 L (22-30) mmol/L Anion Gap 20 mmol/L BUN 113 H* (9-20) mg/dL Creatinine 4.40 H (0.66-1.25) mg/dL Est GFR (CKD-EPI)AfAm 14 (>60 ml/min/1.73 sqM) Est GFR (CKD-EPI)NonAf 12 (>60 ml/min/1.73 sqM) Glucose 78 (74-99) mg/dL Plasma Lactic Acid Lopez (0.7-2.0) mmol/L Calcium 8.5 (8.4-10.2) mg/dL Phosphorus 7.1 H (2.5-4.5) mg/dL Magnesium 2.0 (1.6-2.3) mg/dL Total Bilirubin 0.4 (0.2-1.3) mg/dL AST 36 (17-59) U/L ALT 19 (4-49) U/L Alkaline Phosphatase 116 (38-126) U/L Ammonia (<30) umol/L Creatine Kinase 116 (55-170) U/L CK-MB (CK-2) 5.9 H (0.0-2.4) ng/mL Troponin I 0.061 H* (0.000-0.034) ng/mL NT-Pro-B Natriuret Pep 47930 pg/mL Total Protein 5.9 L (6.3-8.2) g/dL Albumin 3.1 L (3.5-5.0) g/dL Urine Color Urine Appearance (Clear) Urine pH (5.0-8.0) Ur Specific [employer] (1.001-1.035) Urine Protein (Negative) Urine Glucose (UA) (Negative) Urine Ketones (Negative) Urine Blood (Negative) Urine Nitrite (Negative) Urine Bilirubin (Negative) Urine Urobilinogen (<2.0) mg/dL Ur Leukocyte Esterase (Negative) Urine RBC (0-5) /hpf Urine WBC (0-5) /hpf Urine WBC Clumps (None) /hpf Ur Squamous Epith Cells (0-4) /hpf Urine Bacteria (None) /hpf Urine Mucus (None) /hpf Salicylates <1.0 mg/dL Acetaminophen <10.0 ug/mL Serum Alcohol <10 mg/dL 07/04/19 07/04/19 Range/Units 00:25 00:27 WBC (3.8-10.6) k/uL RBC (4.30-5.90) m/uL Hgb (13.0-17.5) gm/dL Hct (39.0-53.0) % MCV (80.0-100.0) fL MCH (25.0-35.0) pg MCHC (31.0-37.0) g/dL RDW (11.5-15.5) % Plt Count (150-450) k/uL Neutrophils % (Manual) % Band Neutrophils % % Lymphocytes % (Manual) % Monocytes % (Manual) % Neutrophils # (Manual) (1.3-7.7) k/uL Lymphocytes # (Manual) (1.0-4.8) k/uL Monocytes # (Manual) (0-1.0) k/uL Nucleated RBCs (0-0) /100 WBC Manual Slide Review Hypersegmented Neuts Polychromasia Hypochromasia Macrocytosis Target Cells PT (9.0-12.0) sec INR (<1.2) APTT (22.0-30.0) sec VBG pH (7.31-7.41) VBG pCO2 (37-51) mmHg VBG HCO3 (24-28) mmol/L Sodium (137-145) mmol/L Potassium (3.5-5.1) mmol/L Chloride (98-107) mmol/L Carbon Dioxide (22-30) mmol/L Anion Gap mmol/L BUN (9-20) mg/dL Creatinine (0.66-1.25) mg/dL Est GFR (CKD-EPI)AfAm (>60 ml/min/1.73 sqM) Est GFR (CKD-EPI)NonAf (>60 ml/min/1.73 sqM) Glucose (74-99) mg/dL Plasma Lactic Acid Lopez 1.3 (0.7-2.0) mmol/L Calcium (8.4-10.2) mg/dL Phosphorus (2.5-4.5) mg/dL Magnesium (1.6-2.3) mg/dL Total Bilirubin (0.2-1.3) mg/dL AST (17-59) U/L ALT (4-49) U/L Alkaline Phosphatase (38-126) U/L Ammonia <9 (<30) umol/L Creatine Kinase (55-170) U/L CK-MB (CK-2) (0.0-2.4) ng/mL Troponin I (0.000-0.034) ng/mL NT-Pro-B Natriuret Pep pg/mL Total Protein (6.3-8.2) g/dL Albumin (3.5-5.0) g/dL Urine Color Yellow Urine Appearance Turbid (Clear) Urine pH 6.0 (5.0-8.0) Ur Specific [employer] 1.016 (1.001-1.035) Urine Protein 2+ H (Negative) Urine Glucose (UA) Negative (Negative) Urine Ketones Negative (Negative) Urine Blood Moderate H (Negative) Urine Nitrite Negative (Negative) Urine Bilirubin Negative (Negative) Urine Urobilinogen <2.0 (<2.0) mg/dL Ur Leukocyte Esterase Large H (Negative) Urine RBC 19 H (0-5) /hpf Urine WBC >182 H (0-5) /hpf Urine WBC Clumps Many H (None) /hpf Ur Squamous Epith Cells 2 (0-4) /hpf Urine Bacteria Moderate H (None) /hpf Urine Mucus Rare H (None) /hpf Salicylates mg/dL Acetaminophen ug/mL Serum Alcohol mg/dL - EKG Data -: EKG Interpreted by Me (EKG shows sinus tachycardia 107, MN 156, QRS 86, QTC 435) - Radiology Data Radiology results: report reviewed (Chest x-ray does show pneumonia and mild CHF), image reviewed Critical Care Time Critical Care Time: Yes Total Critical Care Time: 31 Disposition Clinical Impression: Community acquired pneumonia, Congestive heart failure, Acute respiratory distress syndrome in adult, Acute exacerbation of chronic obstructive pulmonary disease, Acute respiratory failure, UTI (urinary tract infection), Anemia, Acute renal failure, Alcohol abuse, Uremia, Elevated troponin Disposition: ADMITTED IP TO THIS HOSP Condition: Critical Is patient prescribed a controlled substance at d/c from ED?: No Referrals: Ulices Freire MD [Primary Care Provider] - 1-2 days
[2019-07-04] MEDS ORDERED: THIAMINE 200 MG in SODIUM CHLORIDE 0.9% 100 ML IVPB ONE ×2
[2019-07-04 00:09] LABS: HCT 28.4 % (39.0-53.0); HGB 8.9 gm/dL (13.0-17.5); Hypochromasia Moderate; MCH 41.6 pg (25.0-35.0); MCHC 31.4 g/dL (31.0-37.0); MCV 132.4 fL (80.0-100.0); Macrocytosis Marked; Mean Platelet Volume 9.3; RBC 2.14 m/uL (4.30-5.90); RDW 15.9 % (11.5-15.5); WBC 4.8 k/uL (3.8-10.6)
[2019-07-04 00:19] LABS: VBG PH 7.25 (7.31-7.41)
[2019-07-04 00:21] LABS: ALT 19 U/L (4-49); AST 36 U/L (17-59); Acetaminophen <10.0 ug/mL; African American GFR (CKD) 14 (>60 ml/min/1.73 sqM); Albumin 3.1 g/dL (3.5-5.0); Alcohol <10 mg/dL; Alkaline Phosphatase 116 U/L (38-126); Anion Gap 20 mmol/L; Calcium 8.5 mg/dL (8.4-10.2); Carbon Dioxide 15 mmol/L (22-30); Chloride 104 mmol/L (98-107); Creatine Kinase 116 U/L (55-170); Glucose 78 mg/dL (74-99); Non-African American GFR(CKD) 12 (>60 ml/min/1.73 sqM); Phosphorus 7.1 mg/dL (2.5-4.5); Potassium 5.1 mmol/L (3.5-5.1); Salicylate <1.0 mg/dL; Sodium 139 mmol/L (137-145); Total Bilirubin 0.4 mg/dL (0.2-1.3); Total Protein 5.9 g/dL (6.3-8.2)
[2019-07-04 00:26] LABS: INR 1.3 (<1.2); Partial Thromboplastin Time 25.4 sec (22.0-30.0); Prothrombin Time 12.8 sec (9.0-12.0)
[2019-07-04 00:29] LABS: Blood Urea Nitrogen 113 mg/dL (9-20)
[2019-07-04] MEDS ORDERED: LORazepam 2 MG/ML INJ IV STA (00:35)
[2019-07-04 00:37] LABS: Platelet Count 64 k/uL (150-450)
[2019-07-04 00:38] LABS: Polychromasia Present; Target Cells Present
[2019-07-04 00:41] LABS: Band Neutrophils % 2 %; Hypersegmented Neutrophils Present; Neutrophils % (M) 94 %; Nucleated Red Blood Cells 1 /100 WBC (0-0); Total Cells Counted 200
[2019-07-04 00:43] LABS: Appearance,Urine Turbid (Clear); Bacteria,Urine Moderate /hpf; Bilirubin,Urine Negative (Negative); Blood,Urine Moderate (Negative); Color,Urine Yellow; Glucose,Urine (UA) Negative (Negative); Ketones,Urine Negative (Negative); Leukocyte Esterase,Urine Large (Negative); Mucus,Urine Rare /hpf; Nitrite,Urine Negative (Negative); Protein,Urine 2+ (Negative); RBC,Urine 19 /hpf (0-5); Specific Gravity,Urine 1.016 (1.001-1.035); Squamous Epithelial Cell,Urine 2 /hpf (0-4); Urobilinogen,Urine <2.0 mg/dL (<2.0); WBC,Urine >182 /hpf (0-5)
[2019-07-04 00:48] LABS: Lactic Acid, Venous 1.3 mmol/L (0.7-2.0)
[2019-07-04 00:54] LABS: Creatine Kinase MB 5.9 ng/mL (0.0-2.4)
[2019-07-04 01:05] LABS: Troponin I 0.061 ng/mL (0.000-0.034)
[2019-07-04] MEDS ORDERED: SODIUM CHLORIDE 0.9% 1,000 ML IV STA (02:03)
[2019-07-04] MEDS ORDERED: SODIUM CHLORIDE 0.9% 500 ML 500 ML IV STA (02:03)
--- NOTE | 2019-07-04 02:26 | XR ---
EXAMINATION TYPE: XR chest 1V portable DATE OF EXAM: 07/04/2019 COMPARISON: 06/20/2019 HISTORY: Short of breath TECHNIQUE: FINDINGS: Heart is borderline enlarged. There is minimal pulmonary congestion. There is small infiltr ate left lung base. There are chest leads. IMPRESSION: There is mild pulmonary congestion that is new compared to old exam. Small left lower lob e infiltrate appears new compared to old exam. No obvious heart failure.
[2019-07-04] MEDS ORDERED: AZITHROMYCIN 500 MG in SODIUM CHLORIDE 0.9% 250 ML IVPB STA (02:30)
[2019-07-04] MEDS ORDERED: NALOXONE 0.4 MG/ML 1 ML VIAL IV PRN (02:37)
[2019-07-04] MEDS ORDERED: IPRATROPIUM-ALBUTEROL 3 ML NEB INHALATION STA (02:37)
[2019-07-04] MEDS ORDERED: LORazepam 2 MG/ML INJ IV PRN ×3 (02:37)
[2019-07-04 03:34] LABS: C Reactive Protein 530.6 mg/L (<10.0)
[2019-07-04] MEDS ORDERED: AZITHROMYCIN 500 MG in SODIUM CHLORIDE 0.9% 250 ML IVPB ONE (05:00)
--- NOTE | 2019-07-04 05:11 | P.HPIM ---
History of Present Illness H&P Date: 07/04/19 Chief Complaint: AMS 73-year-old male with history of idiopathic thrombocytosis, Hypertension, hyperlipidemia Patient is unable to provide any meaningful history at this time he is currently on BiPAP opens eyes and follows simple commands. Family is not present at this time for interview , patient was accompanied by his daughter earlier who brought into the hospital due to not seeming to feel okay since morning, seems like he was progressively worsening over the day with some confusion and feeling weak and lethargic. Patient has strong history of alcohol abuse. He was complaining of productive coughing and shortness of breath. No other history is available to me at this time the above was obtained by talking to the ER and reviewing medical records In the ED patient received aggressive resuscitation with IV fluids was given antibiotics for presumed underlying pneumonia He was also have found to have anemia and had acute kidney injury Workup is suggestive of possible underlying covid 19 infection. Patient is to be admitted to the ICU for close by icteric and possible need for intubation Review of Systems ROS unobtainable: due to mental status Past Medical History Past Medical History: Blood Disorder, Hyperlipidemia, Hypertension, Osteoarthritis (OA) Additional Past Medical History / Comment(s): FX PELVIS, WRIST, ELBOW, SPINE, Idiopathic thrombocytosis History of Any Multi-Drug Resistant Organisms: None Reported Past Surgical History: Appendectomy, Orthopedic Surgery, Tonsillectomy Additional Past Surgical History / Comment(s): DECOMPRESSION LAMINECTOMY, ORIF L ELBOW, L SUBMANDIBULAR GLAND EXCISED, EYE SURGERY, R CEA Past Anesthesia/Blood Transfusion Reactions: No Reported Reaction Past Psychological History: No Psychological Hx Reported Past Alcohol Use History: None Reported - Past Family History Father Family Medical History: Unable to Obtain, Cancer, Prostate Disorder Medications and Allergies Home Medications Medication Instructions Recorded Confirmed Type Atenolol [Tenormin] 50 mg PO DAILY@0800 01/07/17 06/30/19 History Atorvastatin Calcium [Lipitor] 10 mg PO DAILY@0800 01/07/17 06/30/19 History DULoxetine HCL [Cymbalta] 60 mg PO HS@199901/07/17 06/30/19 History Ranitidine HCl [Zantac] 150 mg PO BID@0800,199901/07/17 06/30/19 History Tamsulosin [Flomax] 0.4 mg PO HS@199901/07/17 06/30/19 History Calcium/Magnesium/Zinc 1 tab PO DAILY@0800 01/15/19 06/30/19 History [Zeckxiy-Tweueujzh-Qajy Tablet] Cyanocobalamin (Vitamin B-12) 1,000 mcg PO DAILY@0800 01/15/19 06/30/19 History [Vitamin B-12] Mometasone/Formoterol [Dulera 200 2 puff INHALATION RT-BID@01/15/19 06/30/19 History Mcg/5 Mcg Inhaler] Thiamine [Vitamin B-1] 100 mg PO BID@799,199901/15/19 06/30/19 History Hydroxyurea [Hydrea] 500 mg PO BID #60 cap 01/17/19 06/30/19 Rx Albuterol Nebulized [Ventolin 2.5 mg INHALATION QID 06/30/19 06/30/19 History Nebulized] Ibuprofen [Motrin Ib] 800 mg PO Q6H PRN 06/30/19 06/30/19 History Prednisone Taper 1 tab PO DAILY 06/30/19 History Xanax (Unknown Dose) 1 tab PO HS 06/30/19 History Allergies Allergy/AdvReac Type Severity Reaction Status Date / Time SANTOSH Inhibitors Allergy Unknown Verified 07/03/19 22:10 gabapentin [From Neurontin] AdvReac Severe Swelling Verified 07/03/19 22:10 Physical Exam Vitals: Vital Signs Temp Pulse Resp BP Pulse Ox 07/04/19 03:11 95 07/04/19 03:01 95 07/04/19 03:00 95 24 90/79 100 07/04/19 02:20 92 24 103/79 100 07/04/19 02:00 96 24 97/77 100 07/04/19 01:00 99 27 H 83/63 96 07/04/19 00:58 96 07/04/19 00:00 98 27 H 87/72 93 L 07/03/19 23:56 101 H 07/03/19 23:00 100 24 94/72 94 L 07/03/19 22:47 104 H 07/03/19 22:37 104 H 07/03/19 22:14 24 07/03/19 22:07 99.2 F 109 H 30 H 90/49 Intake and Output 07/03/19 07/03/19 07/04/19 14:59 22:59 06:59 Other: Weight 77.111 kg Constitutional: Patient is currently on BiPAP, is lethargic but easily arousable opens eyes briefly but drifts back sleeping Q follow simple commands Eyes: Anicteric sclerae, moist conjunctiva, Pupils equal round reactive to light ENMT: NC/AT Patient is currently dependent on BiPAP unable to do oropharynx exam Neck: Supple, FROM, no masses, or JVD Lungs: Clear to auscultation, no wheezing no rales no rhonchi Clear to percussion Normal respiratory effort, no accessory muscle use Cardiovascular: Heart regular in rate and rhythm, No murmurs, gallops, or rubs No peripheral edema Abdominal: Soft Nontender, no guarding, rebound or rigidity Abdomen moving with respiration Normoactive bowel sounds No hepatomegaly, No splenomegaly No palpable mass No abdominal wall hernia noted Skin: Diffuse ecchymosis over bilateral upper extremities worse than lower extremities otherwise Normal temperature, tone, texture, turgor Extremities: No digital cyanosis No clubbing Pedal pulses intact and symmetrical Radial pulses intact and symmetrical No calf tenderness Psychiatric: Patient seems to be confused follow simple commands patient is lethargic easily arousable currently on BiPAP Neuro patient moving bilateral upper extremities purposefully otherwise unable to perform several Exam at this point Lymphatics: no palpable cervical or supraclavicular , or inguinal lymph nodes Results CBC & Chem 7: 07/03/19 22:23 07/03/19 22:23 Labs: Abnormal Lab Results - Last 24 Hours (Table) 07/03/19 07/03/19 07/03/19 Range/Units 22:23 22:23 22:23 RBC 2.14 L (4.30-5.90) m/uL Hgb 8.9 L (13.0-17.5) gm/dL Hct 28.4 L (39.0-53.0) % MCV 132.4 H (80.0-100.0) fL MCH 41.6 H (25.0-35.0) pg RDW 15.9 H (11.5-15.5) % Plt Count 64 L (150-450) k/uL Lymphocytes # (Manual) 0.10 L (1.0-4.8) k/uL Nucleated RBCs 1 H (0-0) /100 WBC Macrocytosis Marked A PT 12.8 H (9.0-12.0) sec INR 1.3 H (<1.2) VBG pH 7.25 L (7.31-7.41) VBG HCO3 16 L (24-28) mmol/L Carbon Dioxide (22-30) mmol/L BUN (9-20) mg/dL Creatinine (0.66-1.25) mg/dL Phosphorus (2.5-4.5) mg/dL Lactate Dehydrogenase (313-618) U/L CK-MB (CK-2) (0.0-2.4) ng/mL Troponin I (0.000-0.034) ng/mL Total Protein (6.3-8.2) g/dL Albumin (3.5-5.0) g/dL Urine Protein (Negative) Urine Blood (Negative) Ur Leukocyte Esterase (Negative) Urine RBC (0-5) /hpf Urine WBC (0-5) /hpf Urine WBC Clumps (None) /hpf Urine Bacteria (None) /hpf Urine Mucus (None) /hpf 07/03/19 07/03/19 07/03/19 Range/Units 22:23 22:23 22:23 RBC (4.30-5.90) m/uL Hgb (13.0-17.5) gm/dL Hct (39.0-53.0) % MCV (80.0-100.0) fL MCH (25.0-35.0) pg RDW (11.5-15.5) % Plt Count (150-450) k/uL Lymphocytes # (Manual) (1.0-4.8) k/uL Nucleated RBCs (0-0) /100 WBC Macrocytosis PT (9.0-12.0) sec INR (<1.2) VBG pH (7.31-7.41) VBG HCO3 (24-28) mmol/L Carbon Dioxide 15 L (22-30) mmol/L BUN 113 H* (9-20) mg/dL Creatinine 4.40 H (0.66-1.25) mg/dL Phosphorus 7.1 H (2.5-4.5) mg/dL Lactate Dehydrogenase 1009 H (313-618) U/L CK-MB (CK-2) 5.9 H (0.0-2.4) ng/mL Troponin I 0.061 H* (0.000-0.034) ng/mL Total Protein 5.9 L (6.3-8.2) g/dL Albumin 3.1 L (3.5-5.0) g/dL Urine Protein (Negative) Urine Blood (Negative) Ur Leukocyte Esterase (Negative) Urine RBC (0-5) /hpf Urine WBC (0-5) /hpf Urine WBC Clumps (None) /hpf Urine Bacteria (None) /hpf Urine Mucus (None) /hpf 07/04/19 Range/Units 00:25 RBC (4.30-5.90) m/uL Hgb (13.0-17.5) gm/dL Hct (39.0-53.0) % MCV (80.0-100.0) fL MCH (25.0-35.0) pg RDW (11.5-15.5) % Plt Count (150-450) k/uL Lymphocytes # (Manual) (1.0-4.8) k/uL Nucleated RBCs (0-0) /100 WBC Macrocytosis PT (9.0-12.0) sec INR (<1.2) VBG pH (7.31-7.41) VBG HCO3 (24-28) mmol/L Carbon Dioxide (22-30) mmol/L BUN (9-20) mg/dL Creatinine (0.66-1.25) mg/dL Phosphorus (2.5-4.5) mg/dL Lactate Dehydrogenase (313-618) U/L CK-MB (CK-2) (0.0-2.4) ng/mL Troponin I (0.000-0.034) ng/mL Total Protein (6.3-8.2) g/dL Albumin (3.5-5.0) g/dL Urine Protein 2+ H (Negative) Urine Blood Moderate H (Negative) Ur Leukocyte Esterase Large H (Negative) Urine RBC 19 H (0-5) /hpf Urine WBC >182 H (0-5) /hpf Urine WBC Clumps Many H (None) /hpf Urine Bacteria Moderate H (None) /hpf Urine Mucus Rare H (None) /hpf Assessment and Plan Assessment: 73-year-old male with idiopathic thrombocytosis, hypertension, hyperlipidemia. Comes into the hospital with his daughter due to progressively getting more co nfused at home with some upper respiratory infection like symptoms productive coughing and shortness of breath patient was found to be in acute kidney injury and pneumonia with possible underlying covid19 infection, admitted as an inpatient with anticipated length of stay more than 2 midnights Acute metabolic encephalopathy Acute hypoxic respiratory failure pneumonia, high suspicion for acute covid 19 infection Metabolic acidosis secondary to acute kidney injury Plan Supportive care, IV fluid hydration Breathing treatments when necessary Broad-spectrum empiric antibiotic for possible underlying pneumonia Await Covid 19 testing Droplet in airborne precautions Low threshold for intubation Blood work showed elevated C-reactive protein, LDH, lymphopenia, acute kidney injury D-dimer elevated this is of prognostic value for possible underlying Covid 19 infection Supportive careIn the intensive care unit Patient has thrombocytopenia (with history of idiopathic thrombocytosis) with ecchymosis bilateral upper extremities Acute kidney injury Avoid nephrotoxic meds Chronic Anemia Currently hemoglobin lower than his baseline Alcohol abuse Alcohol withdrawal precautions Seizure precautions Benzos per CIWA scale when necessary Thiamine Verify home medications Follow-up ferritin, pro calcitonin, Covid 19 CODE STATUS: Full code DVT prophylaxis: Heparin subcu 3 times a day Discussed with: Patient, ER, RN Anticipated length of stay more than [address]: Pending clinical course A total of 75 minutes was spent on the care of this complex patient more than 50% of the time was spent in counseling and care coordination.
[2019-07-04] MEDS: IPRATROPIUM-ALBUTEROL 3 ML NEB INHALATION SCH ×4 (07:27→20:02)
[2019-07-04] MEDS: SODIUM CHLORIDE 0.9% 1,000 ML IV SCH (08:23)
[2019-07-04 08:30] LABS: Glucose,Whole Blood 89 mg/dL (75-99)
--- NOTE | 2019-07-04 08:34 | P.GSCN ---
History of Present Illness Consult date: 07/04/19 Reason for Consult: Toe ulcers, PAD History of present illness: 73-year-old male with history of idiopathic thrombocytosis, Hypertension, hyperl ipidemia, AAA with endovascular aortic repair and peripheral arterial disease with new toe ulcers presented to the emergency department secondary to difficulty breathing and having multiple episodes of falling according to his daughter. He has been acting funny according to his family over the last week and since the weekend has had 3 falls one of which he went through a pane glass window. He does not have any injuries from this fall according to his daughter but he has been altered ever since. We recently saw him in the office and he was alert and oriented without any issues at that time. He was having some difficulty breathing and he was instructed to see his primary care physician or a paper colorer. He saw Dr. Brown for pulmonology who treated him with steroids and antibiotics. Per the daughter he was doing well and saw Dr. Brown once again and was cleared for 6 months. Since that time she states he worsened and was having a coughing and shortness of breath as well as the altered mental status and therefore she brought him into the emergency department for further evaluation. Currently he is on a BiPAP. Per his daughter he is still having pain in his lower extremities as well as his toes. Review of Systems All systems: negative (What is mentioned in the HPI past medical history) Past Medical History Past Medical History: Blood Disorder, Hyperlipidemia, Hypertension, Osteoarthritis (OA) Additional Past Medical History / Comment(s): FX PELVIS, WRIST, ELBOW, SPINE, Idiopathic thrombocytosis, AAA History of Any Multi-Drug Resistant Organisms: None Reported Past Surgical History: Appendectomy, Orthopedic Surgery, Tonsillectomy Additional Past Surgical History / Comment(s): DECOMPRESSION LAMINECTOMY, ORIF L ELBOW, L SUBMANDIBULAR GLAND EXCISED, EYE SURGERY, R CEA, EVAR Past Anesthesia/Blood Transfusion Reactions: No Reported Reaction Past Psychological History: No Psychological Hx Reported Past Alcohol Use History: None Reported - Past Family History Father Family Medical History: Unable to Obtain, Cancer, Prostate Disorder Medications and Allergies Home Medications Medication Instructions Recorded Confirmed Type Atenolol [Tenormin] 50 mg PO DAILY@0800 01/07/17 06/30/19 History Atorvastatin Calcium [Lipitor] 10 mg PO DAILY@0800 01/07/17 06/30/19 History DULoxetine HCL [Cymbalta] 60 mg PO HS@199901/07/17 06/30/19 History Ranitidine HCl [Zantac] 150 mg PO BID@08,199901/07/17 06/30/19 History Tamsulosin [Flomax] 0.4 mg PO HS@199901/07/17 06/30/19 History Calcium/Magnesium/Zinc 1 tab PO DAILY@0800 01/15/19 06/30/19 History [Umpyrlj-Tdaxzqntt-Remh Tablet] Cyanocobalamin (Vitamin B-12) 1,000 mcg PO DAILY@0800 01/15/19 06/30/19 History [Vitamin B-12] Mometasone/Formoterol [Dulera 200 2 puff INHALATION RT-BID@799,199901/15/19 06/30/19 History Mcg/5 Mcg Inhaler] Thiamine [Vitamin B-1] 100 mg PO BID@08,199901/15/19 06/30/19 History Hydroxyurea [Hydrea] 500 mg PO BID #60 cap 01/17/19 06/30/19 Rx Albuterol Nebulized [Ventolin 2.5 mg INHALATION QID 06/30/19 06/30/19 History Nebulized] Ibuprofen [Motrin Ib] 800 mg PO Q6H PRN 06/30/19 06/30/19 History Prednisone Taper 1 tab PO DAILY 06/30/19 History Xanax (Unknown Dose) 1 tab PO HS 06/30/19 History Allergies Allergy/AdvReac Type Severity Reaction Status Date / Time SANTOSH Inhibitors Allergy Unknown Verified 07/03/19 22:10 gabapentin [From Neurontin] AdvReac Severe Swelling Verified 07/03/19 22:10 Surgical - Exam Vital Signs Temp Pulse Resp BP 99.2 F 109 H 30 H 90/49 07/03/19 22:07 07/03/19 22:07 07/03/19 22:07 07/03/19 22:07 Nonpalpable DP or PT pulses bilaterally. Poor capillary refill. Cool extremities with purplish discoloration throughout. Palpable femoral pulses b ilaterally. Toe ulcers are noted at the bilateral second third and first toes. - General moderate distress, chronically ill - Eyes PERRL - ENT decreased hearing - Neck no masses, no bruits - Respiratory On BiPAP, lung sounds are coarse. other - Cardiovascular Rhythm: regular - Abdomen Abdomen: soft, non tender - Integumentary no rash, no growths - Psychiatric no oriented to time, no oriented to person, no oriented to place, other (Opens eyes to name.) Results - Labs 07/03/19 22:23 07/03/19 22:23 Abnormal Lab Results - Last 24 Hours (Table) 07/03/19 07/03/19 07/03/19 Range/Units 22:23 22:23 22:23 RBC 2.14 L (4.30-5.90) m/uL Hgb 8.9 L (13.0-17.5) gm/dL Hct 28.4 L (39.0-53.0) % MCV 132.4 H (80.0-100.0) fL MCH 41.6 H (25.0-35.0) pg RDW 15.9 H (11.5-15.5) % Plt Count 64 L (150-450) k/uL Lymphocytes # (Manual) 0.10 L (1.0-4.8) k/uL Nucleated RBCs 1 H (0-0) /100 WBC Macrocytosis Marked A PT 12.8 H (9.0-12.0) sec INR 1.3 H (<1.2) D-Dimer (<0.60) mg/L FEU VBG pH 7.25 L (7.31-7.41) VBG HCO3 16 L (24-28) mmol/L Carbon Dioxide (22-30) mmol/L BUN (9-20) mg/dL Creatinine (0.66-1.25) mg/dL Phosphorus (2.5-4.5) mg/dL Lactate Dehydrogenase (313-618) U/L CK-MB (CK-2) (0.0-2.4) ng/mL Troponin I (0.000-0.034) ng/mL C-Reactive Protein (<10.0) mg/L Total Protein (6.3-8.2) g/dL Albumin (3.5-5.0) g/dL Urine Protein (Negative) Urine Blood (Negative) Ur Leukocyte Esterase (Negative) Urine RBC (0-5) /hpf Urine WBC (0-5) /hpf Urine WBC Clumps (None) /hpf Urine Bacteria (None) /hpf Urine Mucus (None) /hpf Crossmatch 07/03/19 07/03/19 07/03/19 Range/Units 22:23 22:23 22:23 RBC (4.30-5.90) m/uL Hgb (13.0-17.5) gm/dL Hct (39.0-53.0) % MCV (80.0-100.0) fL MCH (25.0-35.0) pg RDW (11.5-15.5) % Plt Count (150-450) k/uL Lymphocytes # (Manual) (1.0-4.8) k/uL Nucleated RBCs (0-0) /100 WBC Macrocytosis PT (9.0-12.0) sec INR (<1.2) D-Dimer (<0.60) mg/L FEU VBG pH (7.31-7.41) VBG HCO3 (24-28) mmol/L Carbon Dioxide 15 L (22-30) mmol/L BUN 113 H* (9-20) mg/dL Creatinine 4.40 H (0.66-1.25) mg/dL Phosphorus 7.1 H (2.5-4.5) mg/dL Lactate Dehydrogenase 1009 H (313-618) U/L CK-MB (CK-2) 5.9 H (0.0-2.4) ng/mL Troponin I 0.061 H* (0.000-0.034) ng/mL C-Reactive Protein 530.6 H (<10.0) mg/L Total Protein 5.9 L (6.3-8.2) g/dL Albumin 3.1 L (3.5-5.0) g/dL Urine Protein (Negative) Urine Blood (Negative) Ur Leukocyte Esterase (Negative) Urine RBC (0-5) /hpf Urine WBC (0-5) /hpf Urine WBC Clumps (None) /hpf Urine Bacteria (None) /hpf Urine Mucus (None) /hpf Crossmatch 07/04/19 07/04/19 07/04/19 Range/Units 00:25 02:38 03:48 RBC (4.30-5.90) m/uL Hgb (13.0-17.5) gm/dL Hct (39.0-53.0) % MCV (80.0-100.0) fL MCH (25.0-35.0) pg RDW (11.5-15.5) % Plt Count (150-450) k/uL Lymphocytes # (Manual) (1.0-4.8) k/uL Nucleated RBCs (0-0) /100 WBC Macrocytosis PT (9.0-12.0) sec INR (<1.2) D-Dimer 22.20 H (<0.60) mg/L FEU VBG pH (7.31-7.41) VBG HCO3 (24-28) mmol/L Carbon Dioxide (22-30) mmol/L BUN (9-20) mg/dL Creatinine (0.66-1.25) mg/dL Phosphorus (2.5-4.5) mg/dL Lactate Dehydrogenase (313-618) U/L CK-MB (CK-2) (0.0-2.4) ng/mL Troponin I (0.000-0.034) ng/mL C-Reactive Protein (<10.0) mg/L Total Protein (6.3-8.2) g/dL Albumin (3.5-5.0) g/dL Urine Protein 2+ H (Negative) Urine Blood Moderate H (Negative) Ur Leukocyte Esterase Large H (Negative) Urine RBC 19 H (0-5) /hpf Urine WBC >182 H (0-5) /hpf Urine WBC Clumps Many H (None) /hpf Urine Bacteria Moderate H (None) /hpf Urine Mucus Rare H (None) /hpf Crossmatch See Detail Diabetes panel 07/03/19 Range/Units 22:23 Sodium 139 (137-145) mmol/L Potassium 5.1 (3.5-5.1) mmol/L Chloride 104 (98-107) mmol/L Carbon Dioxide 15 L (22-30) mmol/L BUN 113 H* (9-20) mg/dL Creatinine 4.40 H (0.66-1.25) mg/dL Glucose 78 (74-99) mg/dL Calcium 8.5 (8.4-10.2) mg/dL AST 36 (17-59) U/L ALT 19 (4-49) U/L Alkaline Phosphatase 116 (38-126) U/L Total Protein 5.9 L (6.3-8.2) g/dL Albumin 3.1 L (3.5-5.0) g/dL Calcium panel 07/03/19 Range/Units 22:23 Calcium 8.5 (8.4-10.2) mg/dL Phosphorus 7.1 H (2.5-4.5) mg/dL Albumin 3.1 L (3.5-5.0) g/dL Pituitary panel 07/03/19 Range/Units 22:23 Sodium 139 (137-145) mmol/L Potassium 5.1 (3.5-5.1) mmol/L Chloride 104 (98-107) mmol/L Carbon Dioxide 15 L (22-30) mmol/L BUN 113 H* (9-20) mg/dL Creatinine 4.40 H (0.66-1.25) mg/dL Glucose 78 (74-99) mg/dL Calcium 8.5 (8.4-10.2) mg/dL Adrenal panel 07/03/19 Range/Units 22:23 Sodium 139 (137-145) mmol/L Potassium 5.1 (3.5-5.1) mmol/L Chloride 104 (98-107) mmol/L Carbon Dioxide 15 L (22-30) mmol/L BUN 113 H* (9-20) mg/dL Creatinine 4.40 H (0.66-1.25) mg/dL Glucose 78 (74-99) mg/dL Calcium 8.5 (8.4-10.2) mg/dL Total Bilirubin 0.4 (0.2-1.3) mg/dL AST 36 (17-59) U/L ALT 19 (4-49) U/L Alkaline Phosphatase 116 (38-126) U/L Total Protein 5.9 L (6.3-8.2) g/dL Albumin 3.1 L (3.5-5.0) g/dL Assessment and Plan Assessment: #1 bilateral lower extremity toe ulcerations, lower extremity limb ischemia Caribou classification 5 #2 acute metabolic encephalopathy #3 acute hypoxic respiratory failure #4 metabolic acidosis secondary to acute kidney injury #5 acute kidney failure #6 history of AAA with endovascular aortic repair #7 history of alcohol abuse and withdrawal #8 chronic anemia Plan: Patient was scheduled today for aortogram with bilateral lower extremity runoffs but due to his current situation we will hold off on any intervention at this time. I would recommend continuing aspirin. Due to his kidney injury he may be in need of hemodialysis. We will await nephrology recommendations and he may need a temporary catheter placed at that time. Continue your medical man agement. Thank you for the consultation.
[2019-07-04] MEDS ORDERED: ENOXAPARIN 40 MG/0.4 ML SYRINGE SQ SCH (09:00)
[2019-07-04] MEDS ORDERED: PANTOPRAZOLE 40 MG/10 ML VIAL IV SCH (09:00)
[2019-07-04] MEDS: PANTOPRAZOLE 40 MG/10 ML VIAL IV SCH (09:00)
[2019-07-04] MEDS: HEPARIN SODIUM,PORCINE 5,000 UNIT/ML 1 ML VIAL SQ SCH ×2 (12:20→18:26)
[2019-07-04 12:30] LABS: Anisocytosis Moderate; HCT 28.2 % (39.0-53.0); HGB 8.7 gm/dL (13.0-17.5); Hypochromasia Marked; MCH 41.6 pg (25.0-35.0); MCV 134.3 fL (80.0-100.0); Macrocytosis Marked; Mean Platelet Volume 9.8; WBC 7.5 k/uL (3.8-10.6)
--- NOTE | 2019-07-04 12:31 | P.PN ---
Subjective Progress Note Date: 07/04/19 Principal diagnosis: sob Patient was agitated last night, was treated with some Ativan IV. He is currently on BiPAP. Not able to provide any history at this point. He is still having tachycardia and tachypnea. No fevers recorded. Objective - Vital Signs Vital signs: Vital Signs Temp 97.7 F 07/04/19 04:33 Pulse 102 H 07/04/19 11:22 Resp 26 H 07/04/19 09:35 BP 110/81 07/04/19 09:30 Pulse Ox 100 07/04/19 09:30 Intake & Output 07/03/19 07/04/19 07/04/19 18:59 06:59 18:59 Intake Total 310 Balance 310 Weight 77.111 kg Intake: Blood Product 310 Rc As-1 Unit 310 [id number] - Exam Constitutional: Sedated. On bipap Eyes:Anicteric sclerae, moist conjunctiva, no lid-lag, PERRLA, ENMT: Oropharynx clear, no erythema, exudates Neck: Supple, no masses, or JVD, No carotid bruits, No thyromegaly Lungs: Diminished breath sounds bilaterally. Labored breathing with mild accessory muscle use Cardiovascular: Tachycardic, regular, No murmurs, gallops, or rubs, No peripheral edema Abdominal: Distended, firm, Nontender, no guarding, rebound or rigidity, Normoactive bowel sounds, No hepatomegaly, No splenomegaly, No palpable mass Skin: Normal temperature, tone, texture, turgor, no induration, No subcutaneous nodules, No rash, lesions, No ulcers Extremities: No digital cyanosis, No clubbing, Pedal pulses intact and symmetrical, Radial pulses intact and symmetrical, No calf tenderness Neuro: Sedated, moving all extremities. - Labs CBC & Chem 7: 07/03/19 22:23 07/03/19 22:23 Labs: Abnormal Lab Results - Last 24 Hours (Table) 07/03/19 07/03/19 07/03/19 Range/Units 22:23 22:23 22:23 RBC 2.14 L (4.30-5.90) m/uL Hgb 8.9 L (13.0-17.5) gm/dL Hct 28.4 L (39.0-53.0) % MCV 132.4 H (80.0-100.0) fL MCH 41.6 H (25.0-35.0) pg RDW 15.9 H (11.5-15.5) % Plt Count 64 L (150-450) k/uL Lymphocytes # (Manual) 0.10 L (1.0-4.8) k/uL Nucleated RBCs 1 H (0-0) /100 WBC Macrocytosis Marked A PT 12.8 H (9.0-12.0) sec INR 1.3 H (<1.2) D-Dimer (<0.60) mg/L FEU VBG pH 7.25 L (7.31-7.41) VBG HCO3 16 L (24-28) mmol/L Carbon Dioxide (22-30) mmol/L BUN (9-20) mg/dL Creatinine (0.66-1.25) mg/dL Phosphorus (2.5-4.5) mg/dL Lactate Dehydrogenase (313-618) U/L CK-MB (CK-2) (0.0-2.4) ng/mL Troponin I (0.000-0.034) ng/mL C-Reactive Protein (<10.0) mg/L Total Protein (6.3-8.2) g/dL Albumin (3.5-5.0) g/dL Urine Protein (Negative) Urine Blood (Negative) Ur Leukocyte Esterase (Negative) Urine RBC (0-5) /hpf Urine WBC (0-5) /hpf Urine WBC Clumps (None) /hpf Urine Bacteria (None) /hpf Urine Mucus (None) /hpf Crossmatch 07/03/19 07/03/19 07/03/19 Range/Units 22:23 22:23 22:23 RBC (4.30-5.90) m/uL Hgb (13.0-17.5) gm/dL Hct (39.0-53.0) % MCV (80.0-100.0) fL MCH (25.0-35.0) pg RDW (11.5-15.5) % Plt Count (150-450) k/uL Lymphocytes # (Manual) (1.0-4.8) k/uL Nucleated RBCs (0-0) /100 WBC Macrocytosis PT (9.0-12.0) sec INR (<1.2) D-Dimer (<0.60) mg/L FEU VBG pH (7.31-7.41) VBG HCO3 (24-28) mmol/L Carbon Dioxide 15 L (22-30) mmol/L BUN 113 H* (9-20) mg/dL Creatinine 4.40 H (0.66-1.25) mg/dL Phosphorus 7.1 H (2.5-4.5) mg/dL Lactate Dehydrogenase 1009 H (313-618) U/L CK-MB (CK-2) 5.9 H (0.0-2.4) ng/mL Troponin I 0.061 H* (0.000-0.034) ng/mL C-Reactive Protein 530.6 H (<10.0) mg/L Total Protein 5.9 L (6.3-8.2) g/dL Albumin 3.1 L (3.5-5.0) g/dL Urine Protein (Negative) Urine Blood (Negative) Ur Leukocyte Esterase (Negative) Urine RBC (0-5) /hpf Urine WBC (0-5) /hpf Urine WBC Clumps (None) /hpf Urine Bacteria (None) /hpf Urine Mucus (None) /hpf Crossmatch 07/04/19 07/04/19 07/04/19 Range/Units 00:25 02:38 03:48 RBC (4.30-5.90) m/uL Hgb (13.0-17.5) gm/dL Hct (39.0-53.0) % MCV (80.0-100.0) fL MCH (25.0-35.0) pg RDW (11.5-15.5) % Plt Count (150-450) k/uL Lymphocytes # (Manual) (1.0-4.8) k/uL Nucleated RBCs (0-0) /100 WBC Macrocytosis PT (9.0-12.0) sec INR (<1.2) D-Dimer 22.20 H (<0.60) mg/L FEU VBG pH (7.31-7.41) VBG HCO3 (24-28) mmol/L Carbon Dioxide (22-30) mmol/L BUN (9-20) mg/dL Creatinine (0.66-1.25) mg/dL Phosphorus (2.5-4.5) mg/dL Lactate Dehydrogenase (313-618) U/L CK-MB (CK-2) (0.0-2.4) ng/mL Troponin I (0.000-0.034) ng/mL C-Reactive Protein (<10.0) mg/L Total Protein (6.3-8.2) g/dL Albumin (3.5-5.0) g/dL Urine Protein 2+ H (Negative) Urine Blood Moderate H (Negative) Ur Leukocyte Esterase Large H (Negative) Urine RBC 19 H (0-5) /hpf Urine WBC >182 H (0-5) /hpf Urine WBC Clumps Many H (None) /hpf Urine Bacteria Moderate H (None) /hpf Urine Mucus Rare H (None) /hpf Crossmatch See Detail Microbiology - Last 24 Hours (Table) 07/04/19 00:25 Urine Culture - Preliminary Urine,Clean Catch Assessment and Plan Plan: Acute metabolic encephalopathy Acute hypoxic respiratory failure Community acquired pneumonia, high suspicion for acute covid 19 infection Metabolic acidosis secondary to acute kidney injury Acute on chronic anemia, r/u blood loss. Recent hx of retroperitoneal hematoma. Elevated troponin CHICO Hx of thrombocytosis now with thromocytopenia Hx of ETOH abuse, last drink in march. Plan Repeat ABG Repeat trops Follow Cr, repeat bmp, cbc now IV fluid hydration Breathing treatments when necessary Continue abx, ceftriaxone and azithromycin Await Covid 19 testing Droplet in airborne precautions Low threshold for intubation Supportive care in the intensive care unit Seizure precautions Benzos per CIWA scale when necessary Thiamine CODE STATUS: Full code DVT prophylaxis: Heparin subcu 3 times a day Discussed with: Patient's , ER, RN Anticipated discharge place: Pending clinical course
[2019-07-04 12:32] LABS: Platelet Count 43 k/uL (150-450)
[2019-07-04 12:41] LABS: Albumin 2.7 g/dL (3.5-5.0); Calcium 7.3 mg/dL (8.4-10.2); Magnesium 2.1 mg/dL (1.6-2.3); Phosphorus 7.4 mg/dL (2.5-4.5); Potassium 4.7 mmol/L (3.5-5.1); Total Bilirubin 0.5 mg/dL (0.2-1.3); Total Protein 5.4 g/dL (6.3-8.2)
[2019-07-04 12:43] LABS: Band Neutrophils % 1 %; Lymphocytes # (M) 0.15 k/uL (1.0-4.8); Neutrophils % (M) 93 %; Nucleated Red Blood Cells 0 /100 WBC (0-0); Total Cells Counted 100
[2019-07-04 12:50] LABS: ABG Base Excess -17.9 mmol/L; ABG Oxygen Saturation 96.7 % (94-97); ABG PCO2 22 mmHg (35-45); ABG PH 7.25 (7.35-7.45); ABG PO2 105 mmHg (83-108); ABG TCO2 10 mmol/L (19-24); Allen Test Performed? Yes
[2019-07-04 12:56] LABS: ABG HCO3 9 mmol/L (21-25)
--- NOTE | 2019-07-04 13:08 | CT ---
EXAMINATION TYPE: CT abdomen pelvis wo con DATE OF EXAM: 07/04/2019 COMPARISON: 02/23/2019 HISTORY: Sepsis, respiratory failure, pneumonia, low hemoglobin, surgical history of abdominal aortic aneurysm repair and appendectomy. CT DLP: 1020.4 mGycm Automated exposure control for dose reduction was used. TECHNIQUE: Helical acquisition of images was performed from the lung bases through the pelvis. FINDINGS: Lack of intravenous contrast limits evaluation of both the hollow and solid viscera. LUNG BASES: Respiratory motion at the lung bases limits evaluation of the thorax. Subsegmental depend ent atelectasis is seen as well as moderate to severe coronary artery calcifications and marked retro areolar probable gynecomastia bilaterally. Aneurysmal dilatation of the ascending thoracic aorta sloan ures 4.3 cm. LIVER/GB: Too small to accurately characterize hepatic lesion in segment 4A measures 9 mm. This is lo w-attenuation and likely represents a cyst. Punctate hepatic granuloma on image 30. PANCREAS: Suboptimally evaluated due to motion artifact and lack of contrast. SPLEEN: No splenomegaly. ADRENALS: Diffuse thickening of the bilateral adrenal glands, left greater than right is redemonstrat ed from the prior possibly on the basis of adrenal gland hyperplasia. KIDNEYS: Retroperitoneal lipomatosis surrounding the kidneys. Nonspecific pericolonic fat stranding. There is mild left hydroureteronephrosis without obstructing calculus seen. Catheter is seen decompre ssing the urinary bladder. Proximally 2.4 cm right renal cyst is present as well as too small to accu rately characterize hyperdense right renal lesion of the anterior lower pole cortex on image 44. 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 FREE AIR: No free air is visualized ADENOPATHY: No greater than 1 cm short axis lymph node in the abdomen or pelvis. OSSEOUS STRUCTURES: Surgical fusion is been performed at L3-L5. Compression deformity of T12 is permastone applicator shaylee. Moderate multilevel degenerative change of the spine and diffuse osseous demineralization. Degen erative changes are also seen of both hips, pubic symphysis, and sacroiliac joints. BOWEL: No dilated large or small bowel. OTHER: Again there is an aortobiiliac endovascular stent graft beginning directly below the level of the renal arteries. When measured in a similar location the aneurysm on image 52 measures up to 8.7 x 7.2 cm, overall similar in size from the prior measurement of 8.2 x 7.3 cm when measured in a simila r fashion. There is improvement again in the degree of surrounding hemorrhage which is presumed to be old and reorganizing as there are prior fluid collections and fat stranding on the exam of 02/23/2019 and now only a small curvilinear density remains in the retroperitoneum marked on image 52. Evaluati on for endoleak is nondiagnostic other than endotension on this noncontrast exam. Previously seen mur al thrombus of the posterior aspect of the origin of the endovascular stent graft on sagittal image 6 7 is suboptimally evaluated without contrast but appears similar to the prior. Severe atherosclerosis of the chilkat aorta and its branches. IMPRESSION: 1. SURGICALLY FIXATED LARGE INFRARENAL ABDOMINAL AORTIC ANEURYSM MEASURING UP TO 8.7 X 7.2 CM, SLIGHT LY ENLARGED FROM 02/13/2019 SUGGESTING ENDOTENSION. EVALUATION FOR OTHER TYPES OF ENDOLEAK IS NONDIAGNO STIC WITHOUT CONTRAST. 2. NEW MILD LEFT HYDROURETERONEPHROSIS WITHOUT RADIOPAQUE OBSTRUCTING CALCULUS. 3. IMPROVEMENT IN THE PREVIOUSLY SEEN RETROPERITONEAL HEMORRHAGE/HEMATOMAS WITH 3 ORGANIZING. CURRENT LY ONLY A SMALL AMOUNT OF CURVILINEAR DENSITY IS SEEN IN THE LEFT RETROPERITONEUM, PRESUMABLY CHRONIC . 4. ASCENDING THORACIC AORTIC ANEURYSM APPEARS STABLE. 5. SIMILAR MURAL THROMBUS AT THE ORIGIN OF THE AORTIC GRAFT IN COMPARISON THE PRIOR OF 02/23/2019.
[2019-07-04 13:41] LABS: Ferritin 1593.2 ng/mL (22.0-322.0)
[2019-07-04 13:45] LABS: Amphetamine Screen,Urine Not Detected (NotDetected); Barbiturate Screen,Urine Not Detected (NotDetected); Benzodiazepines Screen,Urine Not Detected (NotDetected); Cocaine Screen,Urine Not Detected (NotDetected); Methadone Screen, Urine Not Detected (NotDetected); Opiate Screen,Urine Not Detected (NotDetected); Oxycodone Screen, Urine Not Detected (NotDetected); Phencyclidine Screen,Urine Not Detected (NotDetected); Tricyclic Antidepressant,Urine Not Detected (NotDetected); Urn Cannabinoid Scrn Not Detected (NotDetected)
[2019-07-04] MEDS: methylPREDNISolone SOD SUCCI 40 MG/ML 1 ML VIAL IV SCH ×2 (14:22→18:27)
[2019-07-04] MEDS: THIAMINE 100 MG in SODIUM CHLORIDE 0.9% 50 ML IVPB SCH (14:24)
[2019-07-04] MEDS: DEXTROSE 5% IN WATER 1,000 ML with SODIUM BICARB (1 MEQ/ML) 150 ML IV SCH (14:26)
[2019-07-04] MEDS ORDERED: SODIUM BICARB 8.4% 50 ML SYR (1 MEQ/ML) IV STA (15:03)
--- NOTE | 2019-07-04 15:05 | P.NPCON ---
History of Present Illness - Reason for Consult acute renal failure - History of Present Illness Reason for admission: Acute kidney injury History of present illness: Patient is a 73-year-old male seen in consultation for acute kidney injury. Patient presented to the hospital due to altered mental status and falls. Daughter is present at bedside. Patient is currently on a BiPAP and is not a reliable historian. Daughter provides the history. She states that the last 3 days he has sustained about 4 falls. His oral intake has been quite poor but he's been drinking decent amount. He has been voiding. No hematuria or dysuria. He has not taken nonsteroidals recently. However she does state that he took 24 tablets of Motrin in a single day about 3 weeks ago. Patient was drinking heavy amounts of alcohol earlier this year but quit mid-April. Serum alcohol level was negative this admission. His creatinine was 4.4 on admission is 4.22 today. Baseline creatinine near 1 from January and February 2019. Patient bicarb level was 15 on admission and is 11 today. He received 1 L of normal saline bolus on admission. He was started on normal saline this morning which was then changed over to isotonic sodium bicarbonate drip which is now running at 75 mL an hour. He is also receiving IV thiamine. Blood pressure was low in the systolic 90s on admission and is now in the low 100s. He underwent CAT scan of the abdomen and pelvis which revealed surgically fixated abdominal aneurysm. He was also noted to have mild left-sided hydronephrosis. He has been evaluated by vascular surgery. Renal ultrasound is pending. Denies family history of renal disease. No history of diabetes. Vital signs are stable. General: The patient appeared well nourished and normally developed. HEENT: Head exam is unremarkable. Neck is without jugular venous distension. LUNGS: Lungs are clear to auscultation and percussion. Breath sounds decreased. HEART: Rate and Rhythm are regular. ABDOMEN: Soft, nontender. EXTREMITITES: No edema. Past Medical History Past Medical History: Blood Disorder, Hyperlipidemia, Hypertension, Osteoarthritis (OA) Additional Past Medical History / Comment(s): FX PELVIS, WRIST, ELBOW, SPINE, Idiopathic thrombocytosis, AAA History of Any Multi-Drug Resistant Organisms: None Reported Past Surgical History: Appendectomy, Orthopedic Surgery, Tonsillectomy Additional Past Surgical History / Comment(s): DECOMPRESSION LAMINECTOMY, ORIF L ELBOW, L SUBMANDIBULAR GLAND EXCISED, EYE SURGERY, R CEA, EVAR Past Anesthesia/Blood Transfusion Reactions: No Reported Reaction Past Psychological History: No Psychological Hx Reported Past Alcohol Use History: None Reported - Past Family History Father Family Medical History: Unable to Obtain, Cancer, Prostate Disorder Medications and Allergies Home Medications Medication Instructions Recorded Confirmed Type Atenolol [Tenormin] 50 mg PO DAILY@0800 01/07/17 07/04/19 History Atorvastatin Calcium [Lipitor] 5 mg PO DAILY@79901/07/17 07/04/19 History DULoxetine HCL [Cymbalta] 60 mg PO HS@199901/07/17 07/04/19 History Ranitidine HCl [Zantac] 150 mg PO BID@799,199901/07/17 07/04/19 History Tamsulosin [Flomax] 0.4 mg PO HS@199901/07/17 07/04/19 History Calcium/Magnesium/Zinc 1 tab PO DAILY@0801/15/19 07/04/19 History [Waplmqh-Wlpnrgpin-Czii Tablet] Cyanocobalamin (Vitamin B-12) 1,000 mcg PO DAILY@0800 01/15/19 07/04/19 History [Vitamin B-12] Mometasone/Formoterol [Dulera 200 2 puff INHALATION RT-BID@799,199901/15/19 07/04/19 History Mcg/5 Mcg Inhaler] Hydroxyurea [Hydrea] 500 mg PO BID #60 cap 01/17/19 07/04/19 Rx ALPRAZolam [Xanax] 0.25 mg PO HS 07/04/19 07/04/19 History Ipratropium-Albuterol Nebulize 3 ml INHALATION RT-QID 07/04/19 07/04/19 History [Duoneb 0.5 mg-3 mg/3 ml Soln] Megestrol [Megace] 400 mg PO DAILY 07/04/19 07/04/19 History predniSONE 10 mg PO DAILY 07/04/19 07/04/19 History Allergies Allergy/AdvReac Type Severity Reaction Status Date / Time SANTOSH Inhibitors Allergy Unknown Verified 07/04/19 13:20 gabapentin [From Neurontin] AdvReac Severe Swelling Verified 07/04/19 13:20 Physical Exam Vitals: Vital Signs Temp Pulse Resp BP Pulse Ox 07/04/19 12:00 100 25 H 106/81 85 L 07/04/19 11:30 102 H 28 H 109/85 97 07/04/19 11:22 102 H 07/04/19 11:10 101 H 07/04/19 11:00 99 33 H 110/86 94 L 07/04/19 10:30 101 H 25 H 110/81 99 07/04/19 10:00 101 H 46 H 110/81 98 07/04/19 09:35 26 H 07/04/19 09:30 104 H 24 108/80 98 07/04/19 09:00 102 H 25 H 113/77 97 07/04/19 08:30 103 H 25 H 114/84 97 07/04/19 08:00 105 H 25 H 114/86 98 07/04/19 07:36 102 H 07/04/19 07:30 105 H 26 H 110/84 93 L 07/04/19 07:27 101 H 07/04/19 07:00 106 H 27 H 146/95 96 07/04/19 06:30 105 H 29 H 123/94 87 L 07/04/19 06:00 105 H 29 H 124/92 99 07/04/19 05:30 99 30 H 133/78 07/04/19 05:00 100 27 H 109/75 98 07/04/19 04:33 97.7 F 98 26 H 119/86 97 07/04/19 04:30 98 36 H 119/74 85 L 07/04/19 04:03 98.2 F 95 26 H 114/86 100 07/04/19 04:00 97 26 H 97/59 100 07/04/19 03:53 97.9 F 97 24 97/59 100 07/04/19 03:45 98.0 F 96 26 H 110/93 93 L 07/04/19 03:30 94 18 100/76 85 L 07/04/19 03:11 95 07/04/19 03:01 95 07/04/19 03:00 94 18 96/71 99 07/04/19 02:30 90 24 100/72 100 07/04/19 02:20 92 24 103/79 100 07/04/19 02:00 101 H 23 107/80 100 07/04/19 01:30 100 31 H 83/72 07/04/19 01:00 100 47 H 93/82 97 07/04/19 00:58 96 07/04/19 00:30 101 H 18 92/64 93 L 07/04/19 00:00 101 H 22 89/71 97 07/03/19 23:56 101 H 07/03/19 23:30 101 H 26 H 85/74 92 L 07/03/19 23:00 103 H 30 H 84/66 94 L 07/03/19 22:47 104 H 07/03/19 22:37 104 H 07/03/19 22:30 105 H 30 H 113/78 97 07/03/19 22:16 84 L 07/03/19 22:14 24 07/03/19 22:07 99.2 F 109 H 30 H 90/49 Intake and Output 07/03/19 07/04/19 07/04/19 22:59 06:59 14:59 Intake Total 310 Balance 310 Intake: Blood Product 310 Rc As-1 Unit 310 [id number] Other: Weight 77.111 kg Results - Lab Results Most recent lab results ABG pH 7.25 (7.35-7.45) L 07/04/19 12:37 ABG pCO2 22 mmHg (35-45) L 07/04/19 12:37 ABG pO2 105 mmHg (83-108) 07/04/19 12:37 ABG HCO3 9 mmol/L (21-25) L* 07/04/19 12:37 ABG O2 Saturation 96.7 % (94-97) 07/04/19 12:37 Calcium 7.3 mg/dL (8.4-10.2) L 07/04/19 12:17 Phosphorus 7.4 mg/dL (2.5-4.5) H 07/04/19 12:17 Magnesium 2.1 mg/dL (1.6-2.3) 07/04/19 12:17 07/04/19 12:17 07/04/19 12:17 Assessment and Plan Plan: Assessment: 1. Acute kidney injury secondary to ATN secondary to hypotension. Creatinine 4.4 on admission is 4.22 today. Rule out obstructive uropathy. Baseline creatinine near 1. 2. Metabolic acidosis secondary to acute kidney injury. 3. History of alcohol abuse. 4. Pneumonia maintained on antibiotics. COVID19 PCR pending. 5. Hyperphosphatemia secondary to acute kidney injury. 6. Multiple falls. Plan: Maintain isotonic bicarbonate drip to be run at 75 mL an hour. 2 A of sodium bicarbonate IV push now. Maintain Ladd catheter. Follow-up renal ultrasound. If shows hydronephrosis, will need urology consultation. Monitor phosphorus level. Will add phosphate binder once tolerating oral intake. Check echocardiogram. Avoid nephrotoxins. Follow up cultures. Continue to assess daily for the need for renal placement therapy. Discussed with the daughter. She is agreeable to proceed with renal placement therapy if needed. Thank you for the consultation. I will continue to follow patient with you during his hospital stay.
--- NOTE | 2019-07-04 15:33 | US ---
EXAMINATION TYPE: US renals and bladder DATE OF EXAM: 07/04/2019 COMPARISON: NONE CLINICAL HISTORY: renal failure. Renal failure.Exam limited due to body habitus and patient unable. EXAM MEASUREMENTS: Right Kidney: 10.1 x 5.7 x 4.5 cm Left Kidney: Unable to visualize due to body habitus and unable to roll or hold breath. Right Kidney: Cystic area upper pole 2.6 x 1.6 x 1.8 cm. Left Kidney: Unable to visualize patient unable to roll. Bladder: Not seen. Exam is limited technically. Cortical medullary differentiation maintained on the right, there is no hydronephrosis. IMPRESSION: Limited exam. Possible cortical cyst right kidney with septation.
[2019-07-04] MEDS ORDERED: THIAMINE 100 MG TAB PO SCH (17:30)
--- NOTE | 2019-07-04 17:58 | CONS ---
CONSULTATION PULMONARY/CRITICAL CARE CONSULTATION: DATE OF SERVICE: 07/04/2019 REASON FOR CONSULTATION: Shortness of breath and mental status changes. 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 The patient usually resides with his daughter, Monika, who is his burglar alarm superintendent. The patient was recently seen by me in the office twice for COPD. We have not been able to do PFTs on him because of the viral pandemic, but we assumed he had pretty significant COPD since he has been smoking for 55 years or so. He continues to smoke. In addition, he has a history of alcohol abuse and alcohol intoxication and dependence. According to his daughter, the patient is still smoking and drinking. Anyway, the patient came in with mental status changes. His chest x-ray showed possibly some mild early CHF. His N-terminal proBNP was quite elevated. His urine suggested a urinary tract infection. In addition, he had anemia and renal failure. Again, I just saw him for his COPD. On this initial visit, the patient looks pretty short of breath. We treated him with DuoNeb and Symbicort and gave him a burst and taper prednisone and he seemed on his visit to look much better. When I saw him in the office just last week, the patient was talking and walking and not having any major issues at that time. So this is certainly all new. MEDICATIONS: Medications are reviewed. They include Tenormin, Lipitor, Cymbalta, Zantac, Flomax, calcium, vitamin B12, Dulera, thiamine, albuterol updrafts, ibuprofen, prednisone with a taper, and Xanax. His previous medications were hydroxyurea for essential thrombocytosis. ALLERGIES: SANTOSH INHIBITORS AND GABAPENTIN. MEDICAL HISTORY: His medical history is positive for essential thrombocytosis, hyperlipidemia, hypertension, DJD, and COPD. Other medical problems include fractured pelvis, wrist, elbow and spine. SURGICAL HISTORY: Surgical history includes appendectomy, tonsillectomy, decompression laminectomy, ORIF, eye surgery and right carotid endarterectomy. In addition, I know the patient has been seeing Dr. Ayala at the wound center and in [facility] for some poorly healing lesions on his foot, I believe. FAMILY HISTORY: Positive for father with prostate cancer. SOCIAL HISTORY: Positive for heavy tobacco and alcohol use with ongoing use. I do not believe there is any history of any illicit drug use. 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 REVIEW OF SYSTEMS: Review of systems cannot be obtained. The patient is currently on BiPAP and is very lethargic and sleepy. PHYSICAL EXAMINATION: VITAL SIGNS: Current vital signs are reviewed. His temperature is 97.7, heart rate 102, respiratory rate 26, blood pressure 110/81, mean 90. Saturations are 100% on BiPAP. He was on 10/5 and 40% of BiPAP. In addition, he was getting saline at 130 mL/hour. HEENT: Examination is grossly unremarkable. BiPAP mask in place. NECK: Supple. Full range of motion. CARDIOVASCULAR: Examination reveals regular rhythm and rate. Heart rate right around 95 beats per minute. S1, S2 normal. LUNGS: A few scattered rhonchi. No wheezes or crackles. Breath sounds are equal but diminished throughout. ABDOMEN: Soft. EXTREMITIES: Intact. No significant edema. SKIN: Multiple areas of ecchymoses. NEUROLOGIC: Neurological examination could not be adequately assessed, as the patient was quite lethargic and somnolent. He did arouse on loud verbal stimuli. LABS: Reviewed. White count 4.8, hemoglobin 8.9, hematocrit 28.4, platelet count 64,000. PT 12.8, INR 1.3. PTT is 25.4. D-dimer was 22.20. Sodium, potassium, chloride normal. CO2 15. Anion gap is 20. BUN and creatinine were 113 and 4.40, respectively. The rest of his labs include an LDH of 1009, CK of 116. Troponin was 0.061. C-reactive protein 530 and N-terminal proBNP 34,700. Urine shows it to be infected with 2+ protein, moderate blood, large leukocyte esterase, 19 RBCs, greater than 182 WBCs, many WBC clumps and moderate bacteria. Drug screen was negative for salicylates, Tylenol and alcohol. CURRENT MEDICATIONS: Reviewed. The patient is on Zithromax, Rocephin, subcutaneous heparin, Ativan, morphine, Narcan, Protonix and thiamine. ASSESSMENT: 1. Mental status changes of unclear etiology. 2. Sepsis secondary to urinary tract infection; doubt pneumonia. 3. Mild fluid overload. 4. Chronic obstructive pulmonary disease from previous tobacco use. 5. History of chronic alcohol abuse. 6. History of hyperlipidemia. 7. History of hypertension. 8. Degenerative joint disease. 9. History of essential thrombocytosis. PLAN: We will go ahead and get a blood gas on the patient. We will make sure that he is on appropriate medications for underlying COPD. Additional recommendations and suggestions are forthcoming. Prognosis is guarded. We have made an ICU bed for the patient. Will continue to follow. Medications are reviewed. Prognosis is guarded. MMHOL / IJN: [id number] / MTDD
[2019-07-04] MEDS: PIPERACILLIN-TAZOBACTAM 3.375 GM in SODIUM CHLORIDE 0.9% 100 ML IVPB SCH ×2 (18:30→21:39)
--- NOTE | 2019-07-04 19:40 | P.PN ---
Progress Note - Text Progress Note Date: 07/04/19 Patient seen and examined at 5pm with daughter present. Per daughter he has not complained of abdominal pain or new back pain. Currently patient is on BiPAP and vitals are stable. Abdomen is soft, non tender to palpation. Palpable pulses bilateral femoral arteries. CT of abdomen and pelvis was reviewed with radiologist- retroperitoneal hematoma is improving from last CT and there is no evidence of rupture of the aorta. There is slight enlargement of the aneurysm but due to lack of contrast there is no way to determine endoleak at this time. Patient's BP has been stable today and if there was a rupture or injured aorta he would be unstable. We will continue to follow but at this time no intervention is recommended.
[2019-07-04] MEDS: BUDESONIDE 1 MG/2 ML NEBU INHALATION SCH (20:02)
[2019-07-04] MEDS: FORMOTEROL FUMARATE 20 MCG/2 ML NEBU INHALATION SCH (20:02)
--- NOTE | 2019-07-04 20:40 | P.PN ---
Progress Note - Text Progress Note Date: 07/04/19 elevated troponins and slightly trending up patient had a recent retroperitoneal hematoma with enlarging Abd aortic aneurysm, he was evaluated by vascular surgery, no recommendations for immediate intervention at this time I will avoid heparin drip due to above consult cardiology for recommendations regarding elevated troponins
[2019-07-04 20:53] LABS: Glucose,Whole Blood 32 mg/dL (75-99)
[2019-07-04 20:54] LABS: Glucose,Whole Blood 167 mg/dL (75-99)
[2019-07-04] MEDS ORDERED: DEXTROSE 5% IN WATER 100 ML with AMIODARONE 150 MG IV ONE (21:25)
[2019-07-04] MEDS ORDERED: AMIODARONE 360 MG in DEXTROSE 5% IN WATER 200 ML IV ONE ×2 (21:25)
[2019-07-04] MEDS: IPRATROPIUM-ALBUTEROL 3 ML NEB INHALATION PRN (23:31)
[2019-07-05] MEDS: methylPREDNISolone SOD SUCCI 40 MG/ML 1 ML VIAL IV SCH ×5 (00:20→23:53)
--- NOTE | 2019-07-05 00:30 | P.CONS ---
History of Present Illness - Reason for Consult Consult date: 07/04/19 sepsis Requesting physician: Ilana Maxwell - Chief Complaint weakness and shortness of breath x few days - History of Present Illness Patient is a 73-year-old male with a past medical history significant for alcoholism recent diagnosis of COPD has been brought into the ER by the family last night for evaluation of mental status changes not acting appropriately and increasing shortness of breath patient symptom has been getting worse for the last few days before the patient was brought to the hospital and apparently the patient did have some choking on the drinking a day prior to that but no history of any nausea or vomiting or any diarrhea patient having increasing shortness of breath and did have a cough but no sputum has been reported no abdominal pain or any diarrhea with the symptom the patient was brought into the ER on arrival to the ER but did have low sugar 99.3 was tachycardic patient has been hypoxemic and noticeable acute renal failure patient has been started on a BiPAP work-up in the ER did include a chest x-ray with diffuse pulmonary vascular congestion and left lower lobe infiltrate CT abdominal pelvis today shows influenza renal abdominal aortic aneurysm left- sided hydronephrosis mild patient was started on Rocephin and Zithromax infectious disease was consulted for further management of antibiotic therapy most information has been obtained from talking to the family the bedside the patient currently unable provide any history. Review of Systems Positive point has been mentioned in HPI complete review could not be obtained because of underlying mental status Past Medical History Past Medical History: Blood Disorder, Hyperlipidemia, Hypertension, O steoarthritis (OA) Additional Past Medical History / Comment(s): FX PELVIS, WRIST, ELBOW, SPINE, Idiopathic thrombocytosis, AAA History of Any Multi-Drug Resistant Organisms: None Reported Past Surgical History: Appendectomy, Orthopedic Surgery, Tonsillectomy Additional Past Surgical History / Comment(s): DECOMPRESSION LAMINECTOMY, ORIF L ELBOW, L SUBMANDIBULAR GLAND EXCISED, EYE SURGERY, R CEA, EVAR Past Anesthesia/Blood Transfusion Reactions: No Reported Reaction Past Psychological History: No Psychological Hx Reported Past Alcohol Use History: None Reported - Past Family History Father Family Medical History: Unable to Obtain, Cancer, Prostate Disorder Medications and Allergies Home Medications Medication Instructions Recorded Confirmed Type Atenolol [Tenormin] 50 mg PO DAILY@0800 01/07/17 07/04/19 History Atorvastatin Calcium [Lipitor] 5 mg PO DAILY@0801/07/17 07/04/19 History DULoxetine HCL [Cymbalta] 60 mg PO HS@199901/07/17 07/04/19 History Ranitidine HCl [Zantac] 150 mg PO BID@799,199901/07/17 07/04/19 History Tamsulosin [Flomax] 0.4 mg PO HS@199901/07/17 07/04/19 History Calcium/Magnesium/Zinc 1 tab PO DAILY@79901/15/19 07/04/19 History [Rtutijp-Ttsqqvdgz-Vksl Tablet] Cyanocobalamin (Vitamin B-12) 1,000 mcg PO DAILY@79901/15/19 07/04/19 History [Vitamin B-12] Mometasone/Formoterol [Dulera 200 2 puff INHALATION RT-BID@799,199901/15/19 07/04/19 History Mcg/5 Mcg Inhaler] Hydroxyurea [Hydrea] 500 mg PO BID #60 cap 01/17/19 07/04/19 Rx ALPRAZolam [Xanax] 0.25 mg PO HS 07/04/19 07/04/19 History Ipratropium-Albuterol Nebulize 3 ml INHALATION RT-QID 07/04/19 07/04/19 History [Duoneb 0.5 mg-3 mg/3 ml Soln] Megestrol [Megace] 400 mg PO DAILY 07/04/19 07/04/19 History predniSONE 10 mg PO DAILY 07/04/19 07/04/19 History Allergies Allergy/AdvReac Type Severity Reaction Status Date / Time SANTOSH Inhibitors Allergy Unknown Verified 07/04/19 13:20 gabapentin [From Neurontin] AdvReac Severe Swelling Verified 07/04/19 13:20 Physical Exam Vitals: Vital Signs Temp Pulse Resp BP Pulse Ox 07/04/19 12:00 100 25 H 106/81 85 L 07/04/19 11:30 102 H 28 H 109/85 97 07/04/19 11:22 102 H 07/04/19 11:10 101 H 07/04/19 11:00 99 33 H 110/86 94 L 07/04/19 10:30 101 H 25 H 110/81 99 07/04/19 10:00 101 H 46 H 110/81 98 07/04/19 09:35 26 H 07/04/19 09:30 104 H 24 108/80 98 07/04/19 09:00 102 H 25 H 113/77 97 07/04/19 08:30 103 H 25 H 114/84 97 07/04/19 08:00 105 H 25 H 114/86 98 07/04/19 07:36 102 H 07/04/19 07:30 105 H 26 H 110/84 93 L 07/04/19 07:27 101 H 07/04/19 07:00 106 H 27 H 146/95 96 07/04/19 06:30 105 H 29 H 123/94 87 L 07/04/19 06:00 105 H 29 H 124/92 99 07/04/19 05:30 99 30 H 133/78 07/04/19 05:00 100 27 H 109/75 98 07/04/19 04:33 97.7 F 98 26 H 119/86 97 07/04/19 04:30 98 36 H 119/74 85 L 07/04/19 04:03 98.2 F 95 26 H 114/86 100 07/04/19 04:00 97 26 H 97/59 100 07/04/19 03:53 97.9 F 97 24 97/59 100 07/04/19 03:45 98.0 F 96 26 H 110/93 93 L 07/04/19 03:30 94 18 100/76 85 L 07/04/19 03:11 95 07/04/19 03:01 95 07/04/19 03:00 94 18 96/71 99 07/04/19 02:30 90 24 100/72 100 07/04/19 02:20 92 24 103/79 100 07/04/19 02:00 101 H 23 107/80 100 07/04/19 01:30 100 31 H 83/72 07/04/19 01:00 100 47 H 93/82 97 07/04/19 00:58 96 07/04/19 00:30 101 H 18 92/64 93 L 07/04/19 00:00 101 H 22 89/71 97 07/03/19 23:56 101 H 07/03/19 23:30 101 H 26 H 85/74 92 L 07/03/19 23:00 103 H 30 H 84/66 94 L 07/03/19 22:47 104 H 07/03/19 22:37 104 H 07/03/19 22:30 105 H 30 H 113/78 97 07/03/19 22:16 84 L 07/03/19 22:14 24 07/03/19 22:07 99.2 F 109 H 30 H 90/49 Intake and Output 07/03/19 07/04/19 07/04/19 22:59 06:59 14:59 Intake Total 310 Balance 310 Intake: Blood Product 310 Rc As-1 Unit 310 [id number] Other: Weight 77.111 kg GENERAL DESCRIPTION: Elderly male lying in bed, mild distress. No tachypnea or accessory muscle of respiration use. HEENT: Shows Pallor , no scleral icterus. Oral mucous membrane is dry. NECK: Trachea central, no thyromegaly. LUNGS: Unlabored breathing. Decreased breath sound at base. No wheeze or crackle. HEART: S1, S2, regular rate and rhythm. ABDOMEN: Soft, no tenderness , guarding or rigidity EXTREMITIES: No edema of feet. SKIN: No rash, multiple superficial wounds on both lower extremity with no significant cellulitis nEUROLOGICAL: The patient is lethargic on the BiPAP Results CBC & Chem 7: 07/04/19 12:17 07/04/19 12:17 Labs: Abnormal Lab Results - Last 24 Hours (Table) 07/03/19 07/03/19 07/03/19 Range/Units 22:23 22:23 22:23 RBC 2.14 L (4.30-5.90) m/uL Hgb 8.9 L (13.0-17.5) gm/dL Hct 28.4 L (39.0-53.0) % MCV 132.4 H (80.0-100.0) fL MCH 41.6 H (25.0-35.0) pg RDW 15.9 H (11.5-15.5) % Plt Count 64 L (150-450) k/uL Lymphocytes # (Manual) 0.10 L (1.0-4.8) k/uL Nucleated RBCs 1 H (0-0) /100 WBC Macrocytosis Marked A PT 12.8 H (9.0-12.0) sec INR 1.3 H (<1.2) D-Dimer (<0.60) mg/L FEU ABG pH (7.35-7.45) ABG pCO2 (35-45) mmHg ABG HCO3 (21-25) mmol/L ABG Total CO2 (19-24) mmol/L VBG pH 7.25 L (7.31-7.41) VBG HCO3 16 L (24-28) mmol/L Chloride (98-107) mmol/L Carbon Dioxide (22-30) mmol/L BUN (9-20) mg/dL Creatinine (0.66-1.25) mg/dL Glucose (74-99) mg/dL Calcium (8.4-10.2) mg/dL Phosphorus (2.5-4.5) mg/dL Ferritin (22.0-322.0) ng/mL Lactate Dehydrogenase (313-618) U/L CK-MB (CK-2) (0.0-2.4) ng/mL Troponin I (0.000-0.034) ng/mL C-Reactive Protein (<10.0) mg/L Total Protein (6.3-8.2) g/dL Albumin (3.5-5.0) g/dL Urine Protein (Negative) Urine Blood (Negative) Ur Leukocyte Esterase (Negative) Urine RBC (0-5) /hpf Urine WBC (0-5) /hpf Urine WBC Clumps (None) /hpf Urine Bacteria (None) /hpf Urine Mucus (None) /hpf Crossmatch 07/03/19 07/03/19 07/03/19 Range/Units 22:23 22:23 22:23 RBC (4.30-5.90) m/uL Hgb (13.0-17.5) gm/dL Hct (39.0-53.0) % MCV (80.0-100.0) fL MCH (25.0-35.0) pg RDW (11.5-15.5) % Plt Count (150-450) k/uL Lymphocytes # (Manual) (1.0-4.8) k/uL Nucleated RBCs (0-0) /100 WBC Macrocytosis PT (9.0-12.0) sec INR (<1.2) D-Dimer (<0.60) mg/L FEU ABG pH (7.35-7.45) ABG pCO2 (35-45) mmHg ABG HCO3 (21-25) mmol/L ABG Total CO2 (19-24) mmol/L VBG pH (7.31-7.41) VBG HCO3 (24-28) mmol/L Chloride (98-107) mmol/L Carbon Dioxide 15 L (22-30) mmol/L BUN 113 H* (9-20) mg/dL Creatinine 4.40 H (0.66-1.25) mg/dL Glucose (74-99) mg/dL Calcium (8.4-10.2) mg/dL Phosphorus 7.1 H (2.5-4.5) mg/dL Ferritin 1593.2 H (22.0-322.0) ng/mL Lactate Dehydrogenase 1009 H (313-618) U/L CK-MB (CK-2) 5.9 H (0.0-2.4) ng/mL Troponin I 0.061 H* (0.000-0.034) ng/mL C-Reactive Protein 530.6 H (<10.0) mg/L Total Protein 5.9 L (6.3-8.2) g/dL Albumin 3.1 L (3.5-5.0) g/dL Urine Protein (Negative) Urine Blood (Negative) Ur Leukocyte Esterase (Negative) Urine RBC (0-5) /hpf Urine WBC (0-5) /hpf Urine WBC Clumps (None) /hpf Urine Bacteria (None) /hpf Urine Mucus (None) /hpf Crossmatch 07/04/19 07/04/19 07/04/19 Range/Units 00:25 02:38 03:48 RBC (4.30-5.90) m/uL Hgb (13.0-17.5) gm/dL Hct (39.0-53.0) % MCV (80.0-100.0) fL MCH (25.0-35.0) pg RDW (11.5-15.5) % Plt Count (150-450) k/uL Lymphocytes # (Manual) (1.0-4.8) k/uL Nucleated RBCs (0-0) /100 WBC Macrocytosis PT (9.0-12.0) sec INR (<1.2) D-Dimer 22.20 H (<0.60) mg/L FEU ABG pH (7.35-7.45) ABG pCO2 (35-45) mmHg ABG HCO3 (21-25) mmol/L ABG Total CO2 (19-24) mmol/L VBG pH (7.31-7.41) VBG HCO3 (24-28) mmol/L Chloride (98-107) mmol/L Carbon Dioxide (22-30) mmol/L BUN (9-20) mg/dL Creatinine (0.66-1.25) mg/dL Glucose (74-99) mg/dL Calcium (8.4-10.2) mg/dL Phosphorus (2.5-4.5) mg/dL Ferritin (22.0-322.0) ng/mL Lactate Dehydrogenase (313-618) U/L CK-MB (CK-2) (0.0-2.4) ng/mL Troponin I (0.000-0.034) ng/mL C-Reactive Protein (<10.0) mg/L Total Protein (6.3-8.2) g/dL Albumin (3.5-5.0) g/dL Urine Protein 2+ H (Negative) Urine Blood Moderate H (Negative) Ur Leukocyte Esterase Large H (Negative) Urine RBC 19 H (0-5) /hpf Urine WBC >182 H (0-5) /hpf Urine WBC Clumps Many H (None) /hpf Urine Bacteria Moderate H (None) /hpf Urine Mucus Rare H (None) /hpf Crossmatch See Detail 07/04/19 07/04/19 07/04/19 Range/Units 12:17 12:17 12:17 RBC 2.10 L (4.30-5.90) m/uL Hgb 8.7 L (13.0-17.5) gm/dL Hct 28.2 L (39.0-53.0) % MCV 134.3 H (80.0-100.0) fL MCH 41.6 H (25.0-35.0) pg RDW 21.0 H (11.5-15.5) % Plt Count 43 L (150-450) k/uL Lymphocytes # (Manual) 0.15 L (1.0-4.8) k/uL Nucleated RBCs (0-0) /100 WBC Macrocytosis Marked A PT (9.0-12.0) sec INR (<1.2) D-Dimer (<0.60) mg/L FEU ABG pH (7.35-7.45) ABG pCO2 (35-45) mmHg ABG HCO3 (21-25) mmol/L ABG Total CO2 (19-24) mmol/L VBG pH (7.31-7.41) VBG HCO3 (24-28) mmol/L Chloride 113 H (98-107) mmol/L Carbon Dioxide 11 L (22-30) mmol/L BUN 110 H* (9-20) mg/dL Creatinine 4.22 H (0.66-1.25) mg/dL Glucose 105 H (74-99) mg/dL Calcium 7.3 L (8.4-10.2) mg/dL Phosphorus 7.4 H (2.5-4.5) mg/dL Ferritin (22.0-322.0) ng/mL Lactate Dehydrogenase (313-618) U/L CK-MB (CK-2) (0.0-2.4) ng/mL Troponin I 0.105 H* (0.000-0.034) ng/mL C-Reactive Protein (<10.0) mg/L Total Protein 5.4 L (6.3-8.2) g/dL Albumin 2.7 L (3.5-5.0) g/dL Urine Protein (Negative) Urine Blood (Negative) Ur Leukocyte Esterase (Negative) Urine RBC (0-5) /hpf Urine WBC (0-5) /hpf Urine WBC Clumps (None) /hpf Urine Bacteria (None) /hpf Urine Mucus (None) /hpf Crossmatch 07/04/19 Range/Units 12:37 RBC (4.30-5.90) m/uL Hgb (13.0-17.5) gm/dL Hct (39.0-53.0) % MCV (80.0-100.0) fL MCH (25.0-35.0) pg RDW (11.5-15.5) % Plt Count (150-450) k/uL Lymphocytes # (Manual) (1.0-4.8) k/uL Nucleated RBCs (0-0) /100 WBC Macrocytosis PT (9.0-12.0) sec INR (<1.2) D-Dimer (<0.60) mg/L FEU ABG pH 7.25 L (7.35-7.45) ABG pCO2 22 L (35-45) mmHg ABG HCO3 9 L* (21-25) mmol/L ABG Total CO2 10 L (19-24) mmol/L VBG pH (7.31-7.41) VBG HCO3 (24-28) mmol/L Chloride (98-107) mmol/L Carbon Dioxide (22-30) mmol/L BUN (9-20) mg/dL Creatinine (0.66-1.25) mg/dL Glucose (74-99) mg/dL Calcium (8.4-10.2) mg/dL Phosphorus (2.5-4.5) mg/dL Ferritin (22.0-322.0) ng/mL Lactate Dehydrogenase (313-618) U/L CK-MB (CK-2) (0.0-2.4) ng/mL Troponin I (0.000-0.034) ng/mL C-Reactive Protein (<10.0) mg/L Total Protein (6.3-8.2) g/dL Albumin (3.5-5.0) g/dL Urine Protein (Negative) Urine Blood (Negative) Ur Leukocyte Esterase (Negative) Urine RBC (0-5) /hpf Urine WBC (0-5) /hpf Urine WBC Clumps (None) /hpf Urine Bacteria (None) /hpf Urine Mucus (None) /hpf Crossmatch Microbiology - Last 24 Hours (Table) 07/03/19 22:23 Blood Culture - Final Blood 07/04/19 00:25 Urine Culture - Preliminary Urine,Clean Catch Assessment and Plan Assessment: patient presented hospital with sepsis in this patient who did have tachycardia hypoxemia and tachypnea source is likely a combination of a complicated UTI in this patient noticed to have a left-sided hydronephrosis and a left lower lobe pneumonia with a question of possible aspiration etiology now with evidence of gram-negative bacteremia (1) Sepsis Current Visit: Yes Status: Acute Code(s): A41.9 - SEPSIS, UNSPECIFIED ORGANISM SNOMED Code(s): 65690880 (2) Pneumonia Current Visit: Yes Status: Acute Code(s): J18.9 - PNEUMONIA, UNSPECIFIED ORGANISM SNOMED Code(s): 429128514 (3) UTI (urinary tract infection) Current Visit: Yes Status: Acute Code(s): N39.0 - URINARY TRACT INFECTION, SITE NOT SPECIFIED SNOMED Code(s): 50472631 (4) Gram-negative bacteremia Current Visit: Yes Status: Acute Code(s): R78.81 - BACTEREMIA SNOMED Code(s): 458573835797 Plan: 1-discontinue Rocephin 2-we will start the patient on Zosyn 3.375 g every 12hr dose IV just with kidney function 3-we will try to obtain a sputum for Gram stain and culture We will follow on clinical condition and cultures to further adjust medication if needed Thank you for this consultation we will follow the patient along with you Time with Patient: Greater than 30
[2019-07-05] MEDS: THIAMINE 100 MG in SODIUM CHLORIDE 0.9% 50 ML IVPB SCH (02:04)
[2019-07-05] MEDS: IPRATROPIUM-ALBUTEROL 3 ML NEB INHALATION PRN (03:21)
[2019-07-05] MEDS: AMIODARONE 300 MG in DEXTROSE 5% IN WATER 250 ML IV SCH ×6 (03:55→23:56)
[2019-07-05] MEDS: DEXTROSE 5% IN WATER 1,000 ML with SODIUM BICARB (1 MEQ/ML) 150 ML IV SCH ×2 (04:59→21:18)
[2019-07-05 05:11] LABS: Anisocytosis Moderate; HCT 29.5 % (39.0-53.0); Hypochromasia Marked; MCH 40.5 pg (25.0-35.0); MCHC 30.4 g/dL (31.0-37.0); MCV 133.2 fL (80.0-100.0); Macrocytosis Marked; Mean Platelet Volume 12.7; RBC 2.22 m/uL (4.30-5.90); RDW 20.5 % (11.5-15.5)
[2019-07-05 05:48] LABS: Albumin 2.5 g/dL (3.5-5.0); Magnesium 2.3 mg/dL (1.6-2.3); Phosphorus 8.8 mg/dL (2.5-4.5); Total Bilirubin 0.7 mg/dL (0.2-1.3); Total Protein 5.1 g/dL (6.3-8.2)
[2019-07-05 05:52] LABS: Platelet Count 19 k/uL (150-450)
--- NOTE | 2019-07-05 07:02 | XR ---
EXAMINATION TYPE: XR chest 1V portable DATE OF EXAM: 07/05/2019 CLINICAL HISTORY: Difficulty breathing and pneumonia progress study. TECHNIQUE: Single AP portable frontal view of the chest is obtained. COMPARISON: Chest x-ray from one day earlier and older studies. FINDINGS: Stable mild cardiomegaly with atherosclerotic thoracic aorta. Old left lateral rib fractu res redemonstrated. Persistent low lung volumes with central vascular congestion and new patchy bilat eral peripheral and stable left basilar opacities . IMPRESSION: Persistent low lung volumes along with cardiomegaly and central vascular congestion along with patchy left basilar atelectasis and/or infiltrate. Suggestion of developing bilateral periphera l acute infiltrates. Correlate clinically to exclude Covid-19 pneumonia in current environment. A Yellow level critical message alert has been initiated for Tyshawn Brown via the [facility] Critical Results System on 07/05/2019 7:00 AM. This message alert has been sent to Tyshawn Brown via the preferences provided by the clinician for the receipt of Radiology Critical Findings. Message ID [id number].
[2019-07-05 07:29] LABS: Band Neutrophils % 6 %; Lymphocytes # (M) 0.47 k/uL (1.0-4.8); Monocytes # (M) 0.71 k/uL (0-1.0); Neutrophils % (M) 85 %; Nucleated Red Blood Cells 2 /100 WBC (0-0); Polychromasia Present; Total Cells Counted 200; WBC 11.8 k/uL (3.8-10.6)
[2019-07-05 07:32] LABS: Poikilocytosis (M) Present
[2019-07-05] MEDS: BUDESONIDE 1 MG/2 ML NEBU INHALATION SCH ×2 (08:21→20:15)
[2019-07-05] MEDS: IPRATROPIUM-ALBUTEROL 3 ML NEB INHALATION SCH ×4 (08:21→20:15)
[2019-07-05] MEDS: FORMOTEROL FUMARATE 20 MCG/2 ML NEBU INHALATION SCH ×2 (08:21→20:15)
[2019-07-05] MEDS: DILTIAZEM 125 MG in SODIUM CHLORIDE 0.9% 100 ML IV SCH (08:54)
[2019-07-05] MEDS ORDERED: AZITHROMYCIN 500 MG in SODIUM CHLORIDE 0.9% 250 ML IVPB SCH (09:00)
[2019-07-05] MEDS: PANTOPRAZOLE 40 MG/10 ML VIAL IV SCH (10:00)
[2019-07-05] MEDS: PIPERACILLIN-TAZOBACTAM 3.375 GM in SODIUM CHLORIDE 0.9% 100 ML IVPB SCH ×2 (10:01→20:43)
[2019-07-05] MEDS ORDERED: SODIUM BICARB 8.4% 50 ML SYR (1 MEQ/ML) IV STA ×2 (10:31→21:38)
--- NOTE | 2019-07-05 10:34 | P.PN ---
Subjective Patient is seen in follow-up for acute kidney injury. No significant improvement in his renal function. He is currently on BiPAP. Quite agitated. He is currently maintained on Cardizem and amiodarone drip for A. fib. Urine output 35-50 mL an hour. Vital signs: Blood pressure stable. Remains in A. fib. General: The patient appeared well nourished and normally developed. HEENT: Currently on BiPAP. LUNGS: Lungs are clear to auscultation and percussion. Breath sounds decreased. HEART: Irregular rate and rhythm. ABDOMEN: Soft, no distention noted. EXTREMITITES: No edema. Objective - Vital Signs Vital signs: Vital Signs Temp 98.4 F 07/05/19 04:00 Pulse 151 H 07/05/19 08:51 Resp 23 07/05/19 07:00 BP 114/84 07/05/19 07:00 Pulse Ox 99 07/05/19 07:00 Intake & Output 07/04/19 07/05/19 07/05/19 18:59 06:59 18:59 Intake Total 1275 75 Output Total 535 50 Balance 740 25 Weight 80.8 kg Intake: Intake, IV Titration 1275 75 Amount Amiodarone 360 mg In 200 Dextrose 5% in Water 200 ml @ 1 MG/MIN 33.333 mls/ hr IV .Q6H ONE Rx#: [id number] Dextrose 5% in Water 1, 825 75 000 ml @ 75 mls/hr IV . [id number] RENE with Sodium Bicarb (1 Meq/ml) 150 ml Rx#:[id number] Dextrose 5% in Water 100 100 ml @ 618 mls/hr IV .Q10M ONE with Amiodarone 150 mg Rx#:[id number] Piperacillin-Tazobactam 3 100 .375 gm In Sodium Chloride 0.9% 100 ml @ 25 mls/hr IVPB Q12HR RENE Rx #:[id number] Thiamine 100 mg In Sodium 50 Chloride 0.9% 50 ml @ 100 mls/hr IVPB Q12H RENE Rx#:[id number] Output: Urine 535 50 Other: Voiding Method Indwelling Catheter - Labs CBC & Chem 7: 07/05/19 04:18 07/05/19 04:18 Labs: Abnormal Lab Results - Last 24 Hours (Table) 0507/04/19 07/04/19 Range/Units 22:23 02:38 03:48 WBC (3.8-10.6) k/uL RBC (4.30-5.90) m/uL Hgb (13.0-17.5) gm/dL Hct (39.0-53.0) % MCV (80.0-100.0) fL MCH (25.0-35.0) pg MCHC (31.0-37.0) g/dL RDW (11.5-15.5) % Plt Count (150-450) k/uL Neutrophils # (Manual) (1.3-7.7) k/uL Lymphocytes # (Manual) (1.0-4.8) k/uL Nucleated RBCs (0-0) /100 WBC Macrocytosis ABG pH (7.35-7.45) ABG pCO2 (35-45) mmHg ABG HCO3 (21-25) mmol/L ABG Total CO2 (19-24) mmol/L Chloride (98-107) mmol/L Carbon Dioxide (22-30) mmol/L BUN (9-20) mg/dL Creatinine (0.66-1.25) mg/dL Glucose (74-99) mg/dL POC Glucose (mg/dL) (75-99) mg/dL Calcium (8.4-10.2) mg/dL Phosphorus (2.5-4.5) mg/dL Ferritin 1593.2 H (22.0-322.0) ng/mL AST (17-59) U/L ALT (4-49) U/L Troponin I (0.000-0.034) ng/mL Total Protein (6.3-8.2) g/dL Albumin (3.5-5.0) g/dL Procalcitonin >100.00 H (0.02-0.09) ng/mL Crossmatch See Detail 07/04/19 07/04/19 07/04/19 Range/Units 12:17 12:17 12:17 WBC (3.8-10.6) k/uL RBC 2.10 L (4.30-5.90) m/uL Hgb 8.7 L (13.0-17.5) gm/dL Hct 28.2 L (39.0-53.0) % MCV 134.3 H (80.0-100.0) fL MCH 41.6 H (25.0-35.0) pg MCHC (31.0-37.0) g/dL RDW 21.0 H (11.5-15.5) % Plt Count 43 L (150-450) k/uL Neutrophils # (Manual) (1.3-7.7) k/uL Lymphocytes # (Manual) 0.15 L (1.0-4.8) k/uL Nucleated RBCs (0-0) /100 WBC Macrocytosis Marked A ABG pH (7.35-7.45) ABG pCO2 (35-45) mmHg ABG HCO3 (21-25) mmol/L ABG Total CO2 (19-24) mmol/L Chloride 113 H (98-107) mmol/L Carbon Dioxide 11 L (22-30) mmol/L BUN 110 H* (9-20) mg/dL Creatinine 4.22 H (0.66-1.25) mg/dL Glucose 105 H (74-99) mg/dL POC Glucose (mg/dL) (75-99) mg/dL Calcium 7.3 L (8.4-10.2) mg/dL Phosphorus 7.4 H (2.5-4.5) mg/dL Ferritin (22.0-322.0) ng/mL AST (17-59) U/L ALT (4-49) U/L Troponin I 0.105 H* (0.000-0.034) ng/mL Total Protein 5.4 L (6.3-8.2) g/dL Albumin 2.7 L (3.5-5.0) g/dL Procalcitonin (0.02-0.09) ng/mL Crossmatch 07/04/19 07/04/19 07/04/19 Range/Units 12:37 18:40 20:51 WBC (3.8-10.6) k/uL RBC (4.30-5.90) m/uL Hgb (13.0-17.5) gm/dL Hct (39.0-53.0) % MCV (80.0-100.0) fL MCH (25.0-35.0) pg MCHC (31.0-37.0) g/dL RDW (11.5-15.5) % Plt Count (150-450) k/uL Neutrophils # (Manual) (1.3-7.7) k/uL Lymphocytes # (Manual) (1.0-4.8) k/uL Nucleated RBCs (0-0) /100 WBC Macrocytosis ABG pH 7.25 L (7.35-7.45) ABG pCO2 22 L (35-45) mmHg ABG HCO3 9 L* (21-25) mmol/L ABG Total CO2 10 L (19-24) mmol/L Chloride (98-107) mmol/L Carbon Dioxide (22-30) mmol/L BUN (9-20) mg/dL Creatinine (0.66-1.25) mg/dL Glucose (74-99) mg/dL POC Glucose (mg/dL) 32 L (75-99) mg/dL Calcium (8.4-10.2) mg/dL Phosphorus (2.5-4.5) mg/dL Ferritin (22.0-322.0) ng/mL AST (17-59) U/L ALT (4-49) U/L Troponin I 0.125 H* (0.000-0.034) ng/mL Total Protein (6.3-8.2) g/dL Albumin (3.5-5.0) g/dL Procalcitonin (0.02-0.09) ng/mL Crossmatch 07/04/19 07/05/19 07/05/19 Range/Units 20:53 04:18 04:18 WBC 11.8 H (3.8-10.6) k/uL RBC 2.22 L (4.30-5.90) m/uL Hgb 9.0 L (13.0-17.5) gm/dL Hct 29.5 L (39.0-53.0) % MCV 133.2 H (80.0-100.0) fL MCH 40.5 H (25.0-35.0) pg MCHC 30.4 L (31.0-37.0) g/dL RDW 20.5 H (11.5-15.5) % Plt Count 19 L* D (150-450) k/uL Neutrophils # (Manual) 10.70 H (1.3-7.7) k/uL Lymphocytes # (Manual) 0.47 L (1.0-4.8) k/uL Nucleated RBCs 2 H (0-0) /100 WBC Macrocytosis Marked A ABG pH (7.35-7.45) ABG pCO2 (35-45) mmHg ABG HCO3 (21-25) mmol/L ABG Total CO2 (19-24) mmol/L Chloride 111 H (98-107) mmol/L Carbon Dioxide 10 L (22-30) mmol/L BUN 122 H* (9-20) mg/dL Creatinine 4.12 H (0.66-1.25) mg/dL Glucose 179 H (74-99) mg/dL POC Glucose (mg/dL) 167 H (75-99) mg/dL Calcium 7.0 L (8.4-10.2) mg/dL Phosphorus 8.8 H (2.5-4.5) mg/dL Ferritin (22.0-322.0) ng/mL AST 494 H (17-59) U/L ALT 284 H (4-49) U/L Troponin I (0.000-0.034) ng/mL Total Protein 5.1 L (6.3-8.2) g/dL Albumin 2.5 L (3.5-5.0) g/dL Procalcitonin (0.02-0.09) ng/mL Crossmatch Microbiology - Last 24 Hours (Table) 07/03/19 22:23 Blood Culture Gram Stain - Preliminary Blood Blood Culture - Preliminary Escherichia coli 07/03/19 22:23 Blood Culture - Final Blood 07/04/19 00:25 Urine Culture - Preliminary Urine,Clean Catch Assessment and Plan Plan: Assessment: 1. Acute kidney injury secondary to ATN secondary to hypotension/sepsis. Creatinine 4.4 on admission is 4.12 today. No hydronephrosis noted on kidney ultrasound. However the left kidney could not be visualized. Mild left hydronephrosis was noted on CAT scan. Baseline creatinine near 1. 2. Metabolic acidosis secondary to acute kidney injury. 3. History of alcohol abuse. 4. Pneumonia maintained on antibiotics. COVID19 PCR pending. 5. Hyperphosphatemia secondary to acute kidney injury. 6. Multiple falls. 7. A. fib with RVR maintained on Cardizem and amiodarone. Cardiology following. 8. E. coli bacteremia maintained on antibiotics. 9. Thrombocytopenia. Possibly due to sepsis and alcohol abuse. Plan: Maintain isotonic bicarbonate drip to be run at 75 mL an hour. 2 A of sodium bicarbonate IV push now. Maintain Ladd catheter. Consider urology consultation for the hydronephrosis noted on CAT scan. Monitor phosphorus level. Will add phosphate binder once tolerating oral intake. Follow-up echocardiogram. Avoid nephrotoxins. Follow up cultures. Continue to assess daily for the need for renal placement therapy. Discussed with the daughter on admission. She is agreeable to proceed with annalee l placement therapy if needed.
--- NOTE | 2019-07-05 10:53 | PN ---
PROGRESS NOTE PULMONARY/CRITICAL CARE PROGRESS NOTE: DATE OF SERVICE: 07/05/2019 This is a 73-year-old male, retired orthopedic surgeon, who we saw in the emergency department yesterday on July 03. He came in with mental status changes and not acting appropriately. He was found to have E coli bacteremia. The patient did test negative for COVID infection. Currently on BiPAP at 10 and 5 and 40%. Blood gases were done yesterday. His respiratory rate is a bit rapid. He is getting bicarb drip with 3 amps of sodium bicarbonate and D5W at 75 mL an hour. In addition, the operations intelligence superintendent added amiodarone at 0.5 mg/minute and Cardizem drip to be started at 5 mg an hour. The patient does have a history of COPD from previous heavy tobacco use. I saw him a week ago in the office and he actually looked fairly good. He has developed atrial fibrillation/RVR overnight. Chest x-ray is consistent with CHF. I did have our nurse practitioner bump the IPAP setting up from 10 to 15. Currently, the patient is poorly responsive. I did have a long talk with his daughter, Prema. I talked about code status and whether not Tyshawn would want to be on the ventilator. She was going to give it some thought and call back to me. She is the medical decision maker for this patient. The patient's N terminal proBNP was quite elevated. I think his respiratory difficulty and hypoxemic respiratory failure is multifactorial in part related to underlying COPD, as well as CHF, and also atrial fibrillation with RVR. Complicating the whole process is the E coli bacteremia. Current vital signs are reviewed. Temperature is 98.4, heart rate 151, respiratory rate mid 20s, blood pressure 114/84 mean 94, saturations are 99%. Appears in no acute distress, but he is tachypneic and the patient is poorly responsive. Does open his eyes. Responds to verbal stimuli. HEENT: Examination is grossly unremarkable. BiPAP mask in place. NECK: Supple. Full range of motion. CARDIOVASCULAR: Examination reveals tachycardia. It is irregular. He has atrial fibrillation with RVR. Heart sounds are distant. No distinct murmur. LUNGS: Reveal coarse bilateral rhonchi. Breath sounds are diminished throughout. No wheezes. ABDOMEN: Soft. No bowel sounds are noted. EXTREMITIES: Reveal some chronic wounds and nonhealing ulcers on both toes, particularly on the left. Both his hands and his feet are cyanotic. SKIN: Reveals multiple areas of ecchymoses. NEUROLOGIC: Examination is difficult to assess. He does respond to verbal stimuli. He is very drowsy and lethargic. He does move all 4 extremities. Microbiology is positive for E coli in the blood from 07/02. LABS: Reviewed. White count 11.8, hemoglobin 9.2, hematocrit 29.5, platelet count 19,000, sodium 142, potassium 5, chloride is 111, CO2 is 10, anion gap is 21. BUN and creatinine were 122 and 4.12. Troponin was 0.125. AST, ALT were 494 and 284. His urine drug screen was negative. Chest x-ray from 07/04 is reviewed. It is consistent with CHF, CAP. CURRENT MEDICATIONS: Reviewed. He is currently on amiodarone at 0.5 mg/minute, Cardizem drip of 5 mg an hour, azithromycin 500 mg a day, Pulmicort 1 mg twice a day, ceftriaxone 2 g daily, dextrose and sodium bicarbonate IV at 75 an hour/ Perforomist twice a day, DuoNeb q.i.d. and p.r.n. Ativan for CIWA protocol, Solu-Medrol 40 mg q.6, Narcan, Protonix, Zosyn and thiamine. It appears that Dr. Dutta, the Infectious Disease doctor stopped the Rocephin in favor of the Zosyn. ASSESSMENT: 1. Hypoxemic respiratory failure requiring BiPAP therapy, and possibly intubation and mechanical ventilation later today. 2. Mental status changes, likely related to underlying septic encephalopathy. 3. Escherichia coli bacteremia. 4. Congestive heart failure. 5. Chronic obstructive pulmonary disease exacerbation. 6. History of chronic alcohol and tobacco abuse. 7. History of hyperlipidemia. 8. Hypertension. 9. Degenerative joint disease. 10.History of essential/idiopathic thrombocytosis. 11.Development of atrial fibrillation with RVR. 12.Anion gap and non-anion gap metabolic acidosis, currently on bicarbonate drip. PLAN: The patient's overall prognosis is very poor. I did have a conversation with his medical decision maker who is his daughter, Prema. She was going to give some thought to whether or not, Tyshawn would want intubation and mechanical ventilation. I told her that I think his overall prognosis is poor. In addition to the above, he has severe peripheral vascular occlusive disease with acrocyanosis and nonhealing ulcers to the left foot. He has been seeing Dr. Mojica for that. Additional recommendations and suggestions are forthcoming. Prognosis is guarded. Will continue to follow. MMODL / IJN: [id number] /
--- NOTE | 2019-07-05 12:29 | P.PN ---
Subjective Progress Note Date: 07/05/19 Patient seen and examined. Transfer ICU overnight. Agitated, no meaningful response return reactions per nursing Objective - Vital Signs Vital signs: Vital Signs Temp 98.4 F 07/05/19 04:00 Pulse 154 H 07/05/19 12:09 Resp 23 07/05/19 07:00 BP 114/84 07/05/19 07:00 Pulse Ox 99 07/05/19 07:00 Intake & Output 07/04/19 07/05/19 07/05/19 18:59 06:59 18:59 Intake Total 1275 83 Output Total 535 50 Balance 740 33 Weight 80.8 kg Intake: Intake, IV Titration 1275 83 Amount Amiodarone 360 mg In 200 Dextrose 5% in Water 200 ml @ 1 MG/MIN 33.333 mls/ hr IV .Q6H ONE Rx#: [id number] Dextrose 5% in Water 1, 825 75 000 ml @ 75 mls/hr IV . [id number] RENE with Sodium Bicarb (1 Meq/ml) 150 ml Rx#:[id number] Dextrose 5% in Water 100 100 ml @ 618 mls/hr IV .Q10M ONE with Amiodarone 150 mg Rx#:[id number] Diltiazem 125 mg In 8 Sodium Chloride 0.9% 100 ml @ 10 MG/HR 10 mls/hr IV .[id number] [facility] Rx#: [id number] Piperacillin-Tazobactam 3 100 .375 gm In Sodium Chloride 0.9% 100 ml @ 25 mls/hr IVPB Q12HR [facility] Rx #:[id number] Thiamine 100 mg In Sodium 50 Chloride 0.9% 50 ml @ 100 mls/hr IVPB Q12H [facility] Rx#:[id number] Output: Urine 535 50 Other: Voiding Method Indwelling Catheter - Exam Gen. is a ill-appearing male wearing a BiPAP. Heart is tachycardic. Lungs decreased breath sounds. Abdomen soft. Bilateral lower extremities are dry. Delayed capillary refill. Not responding to commands. - Labs CBC & Chem 7: 07/05/19 04:18 07/05/19 04:18 Labs: Abnormal Lab Results - Last 24 Hours (Table) 07/03/19 07/04/19 07/04/19 Range/Units 22:23 02:38 03:48 WBC (3.8-10.6) k/uL RBC (4.30-5.90) m/uL Hgb (13.0-17.5) gm/dL Hct (39.0-53.0) % MCV (80.0-100.0) fL MCH (25.0-35.0) pg MCHC (31.0-37.0) g/dL RDW (11.5-15.5) % Plt Count (150-450) k/uL Neutrophils # (Manual) (1.3-7.7) k/uL Lymphocytes # (Manual) (1.0-4.8) k/uL Nucleated RBCs (0-0) /100 WBC Macrocytosis ABG pH (7.35-7.45) ABG pCO2 (35-45) mmHg ABG HCO3 (21-25) mmol/L ABG Total CO2 (19-24) mmol/L Chloride (98-107) mmol/L Carbon Dioxide (22-30) mmol/L BUN (9-20) mg/dL Creatinine (0.66-1.25) mg/dL Glucose (74-99) mg/dL POC Glucose (mg/dL) (75-99) mg/dL Calcium (8.4-10.2) mg/dL Phosphorus (2.5-4.5) mg/dL Ferritin 1593.2 H (22.0-322.0) ng/mL AST (17-59) U/L ALT (4-49) U/L Troponin I (0.000-0.034) ng/mL Total Protein (6.3-8.2) g/dL Albumin (3.5-5.0) g/dL Procalcitonin >100.00 H (0.02-0.09) ng/mL Crossmatch See Detail 07/04/19 07/04/19 07/04/19 Range/Units 12:17 12:17 12:17 WBC (3.8-10.6) k/uL RBC 2.10 L (4.30-5.90) m/uL Hgb 8.7 L (13.0-17.5) gm/dL Hct 28.2 L (39.0-53.0) % MCV 134.3 H (80.0-100.0) fL MCH 41.6 H (25.0-35.0) pg MCHC (31.0-37.0) g/dL RDW 21.0 H (11.5-15.5) % Plt Count 43 L (150-450) k/uL Neutrophils # (Manual) (1.3-7.7) k/uL Lymphocytes # (Manual) 0.15 L (1.0-4.8) k/uL Nucleated RBCs (0-0) /100 WBC Macrocytosis Marked A ABG pH (7.35-7.45) ABG pCO2 (35-45) mmHg ABG HCO3 (21-25) mmol/L ABG Total CO2 (19-24) mmol/L Chloride 113 H (98-107) mmol/L Carbon Dioxide 11 L (22-30) mmol/L BUN 110 H* (9-20) mg/dL Creatinine 4.22 H (0.66-1.25) mg/dL Glucose 105 H (74-99) mg/dL POC Glucose (mg/dL) (75-99) mg/dL Calcium 7.3 L (8.4-10.2) mg/dL Phosphorus 7.4 H (2.5-4.5) mg/dL Ferritin (22.0-322.0) ng/mL AST (17-59) U/L ALT (4-49) U/L Troponin I 0.105 H* (0.000-0.034) ng/mL Total Protein 5.4 L (6.3-8.2) g/dL Albumin 2.7 L (3.5-5.0) g/dL Procalcitonin (0.02-0.09) ng/mL Crossmatch 07/04/19 07/04/19 07/04/19 Range/Units 12:37 18:40 20:51 WBC (3.8-10.6) k/uL RBC (4.30-5.90) m/uL Hgb (13.0-17.5) gm/dL Hct (39.0-53.0) % MCV (80.0-100.0) fL MCH (25.0-35.0) pg MCHC (31.0-37.0) g/dL RDW (11.5-15.5) % Plt Count (150-450) k/uL Neutrophils # (Manual) (1.3-7.7) k/uL Lymphocytes # (Manual) (1.0-4.8) k/uL Nucleated RBCs (0-0) /100 WBC Macrocytosis ABG pH 7.25 L (7.35-7.45) ABG pCO2 22 L (35-45) mmHg ABG HCO3 9 L* (21-25) mmol/L ABG Total CO2 10 L (19-24) mmol/L Chloride (98-107) mmol/L Carbon Dioxide (22-30) mmol/L BUN (9-20) mg/dL Creatinine (0.66-1.25) mg/dL Glucose (74-99) mg/dL POC Glucose (mg/dL) 32 L (75-99) mg/dL Calcium (8.4-10.2) mg/dL Phosphorus (2.5-4.5) mg/dL Ferritin (22.0-322.0) ng/mL AST (17-59) U/L ALT (4-49) U/L Troponin I 0.125 H* (0.000-0.034) ng/mL Total Protein (6.3-8.2) g/dL Albumin (3.5-5.0) g/dL Procalcitonin (0.02-0.09) ng/mL Crossmatch 07/04/19 07/05/19 07/05/19 Range/Units 20:53 04:18 04:18 WBC 11.8 H (3.8-10.6) k/uL RBC 2.22 L (4.30-5.90) m/uL Hgb 9.0 L (13.0-17.5) gm/dL Hct 29.5 L (39.0-53.0) % MCV 133.2 H (80.0-100.0) fL MCH 40.5 H (25.0-35.0) pg MCHC 30.4 L (31.0-37.0) g/dL RDW 20.5 H (11.5-15.5) % Plt Count 19 L* D (150-450) k/uL Neutrophils # (Manual) 10.70 H (1.3-7.7) k/uL Lymphocytes # (Manual) 0.47 L (1.0-4.8) k/uL Nucleated RBCs 2 H (0-0) /100 WBC Macrocytosis Marked A ABG pH (7.35-7.45) ABG pCO2 (35-45) mmHg ABG HCO3 (21-25) mmol/L ABG Total CO2 (19-24) mmol/L Chloride 111 H (98-107) mmol/L Carbon Dioxide 10 L (22-30) mmol/L BUN 122 H* (9-20) mg/dL Creatinine 4.12 H (0.66-1.25) mg/dL Glucose 179 H (74-99) mg/dL POC Glucose (mg/dL) 167 H (75-99) mg/dL Calcium 7.0 L (8.4-10.2) mg/dL Phosphorus 8.8 H (2.5-4.5) mg/dL Ferritin (22.0-322.0) ng/mL AST 494 H (17-59) U/L ALT 284 H (4-49) U/L Troponin I (0.000-0.034) ng/mL Total Protein 5.1 L (6.3-8.2) g/dL Albumin 2.5 L (3.5-5.0) g/dL Procalcitonin (0.02-0.09) ng/mL Crossmatch Microbiology - Last 24 Hours (Table) 07/03/19 22:23 Blood Culture Gram Stain - Preliminary Blood Blood Culture - Preliminary Escherichia coli 07/03/19 22:23 Blood Culture - Final Blood 07/04/19 00:25 Urine Culture - Preliminary Urine,Clean Catch Assessment and Plan Assessment: #1 bilateral lower extremity toe ulcerations, Kelly 5 peripheral arterial disease #2 acute metabolic encephalopathy #3 acute hypoxic respiratory failure, on BiPAP #4 metabolic acidosis with acute kidney injury 5 acute kidney injury #6 history of abdominal aortic aneurysm status post repair #7 history of alcohol abuse and withdrawal #8 chronic anemia #9 thrombocytopenia Plan: At this point awaiting further recommendations regarding overall goals of care. Did have discussion with daughter today and she would like to have more time to think about overall goals. Currently thrombocytopenic, if need for assess catheter, would place femoral and would transfuse platelets at that time. Poor prognosis overall. Second COVID test reportedly pending from last night
--- NOTE | 2019-07-05 12:42 | P.PN ---
Subjective Progress Note Date: 07/05/19 Principal diagnosis: sob Patient went into atrial fibrillation with rapid ventricular response last night. He was seen by cardiology. His still in severe respiratory distress, c urrently on BiPAP. Objective - Vital Signs Vital signs: Vital Signs Temp 98.4 F 07/05/19 04:00 Pulse 156 H 07/05/19 12:26 Resp 23 07/05/19 07:00 BP 114/84 07/05/19 07:00 Pulse Ox 99 07/05/19 07:00 Intake & Output 07/04/19 07/05/19 07/05/19 18:59 06:59 18:59 Intake Total 1275 83 Output Total 535 50 Balance 740 33 Weight 80.8 kg Intake: Intake, IV Titration 1275 83 Amount Amiodarone 360 mg In 200 Dextrose 5% in Water 200 ml @ 1 MG/MIN 33.333 mls/ hr IV .Q6H ONE Rx#: [id number] Dextrose 5% in Water 1, 825 75 000 ml @ 75 mls/hr IV . [id number] RENE with Sodium Bicarb (1 Meq/ml) 150 ml Rx#:[id number] Dextrose 5% in Water 100 100 ml @ 618 mls/hr IV .Q10M ONE with Amiodarone 150 mg Rx#:[id number] Diltiazem 125 mg In 8 Sodium Chloride 0.9% 100 ml @ 10 MG/HR 10 mls/hr IV .[id number] [facility] Rx#: [id number] Piperacillin-Tazobactam 3 100 .375 gm In Sodium Chloride 0.9% 100 ml @ 25 mls/hr IVPB Q12HR [facility] Rx #:[id number] Thiamine 100 mg In Sodium 50 Chloride 0.9% 50 ml @ 100 mls/hr IVPB Q12H [facility] Rx#:[id number] Output: Urine 535 50 Other: Voiding Method Indwelling Catheter - Exam Constitutional: Sedated. On bipap Eyes:Anicteric sclerae, moist conjunctiva, no lid-lag, PERRLA, ENMT: Oropharynx clear, no erythema, exudates Neck: Supple, no masses, or JVD, No carotid bruits, No thyromegaly Lungs: Diminished breath sounds bilaterally. Labored breathing with mild accessory muscle use Cardiovascular: Tachycardic, regular, No murmurs, gallops, or rubs, No peripheral edema Abdominal: Distended, firm, Nontender, no guarding, rebound or rigidity, Normoactive bowel sounds, No hepatomegaly, No splenomegaly, No palpable mass Skin: Normal temperature, tone, texture, turgor, no induration, No subcutaneous nodules, No rash, lesions, No ulcers Extremities: No digital cyanosis, No clubbing, Pedal pulses intact and symmetrical, Radial pulses intact and symmetrical, No calf tenderness Neuro: Sedated, moving all extremities. - Labs CBC & Chem 7: 07/05/19 04:18 07/05/19 04:18 Labs: Abnormal Lab Results - Last 24 Hours (Table) 07/03/19 07/04/19 07/04/19 Range/Units 22:23 02:38 03:48 WBC (3.8-10.6) k/uL RBC (4.30-5.90) m/uL Hgb (13.0-17.5) gm/dL Hct (39.0-53.0) % MCV (80.0-100.0) fL MCH (25.0-35.0) pg MCHC (31.0-37.0) g/dL RDW (11.5-15.5) % Plt Count (150-450) k/uL Neutrophils # (Manual) (1.3-7.7) k/uL Lymphocytes # (Manual) (1.0-4.8) k/uL Nucleated RBCs (0-0) /100 WBC Macrocytosis ABG pH (7.35-7.45) ABG pCO2 (35-45) mmHg ABG HCO3 (21-25) mmol/L ABG Total CO2 (19-24) mmol/L Chloride (98-107) mmol/L Carbon Dioxide (22-30) mmol/L BUN (9-20) mg/dL Creatinine (0.66-1.25) mg/dL Glucose (74-99) mg/dL POC Glucose (mg/dL) (75-99) mg/dL Calcium (8.4-10.2) mg/dL Phosphorus (2.5-4.5) mg/dL Ferritin 1593.2 H (22.0-322.0) ng/mL AST (17-59) U/L ALT (4-49) U/L Troponin I (0.000-0.034) ng/mL Total Protein (6.3-8.2) g/dL Albumin (3.5-5.0) g/dL Procalcitonin >100.00 H (0.02-0.09) ng/mL Crossmatch See Detail 07/04/19 07/04/19 07/04/19 Range/Units 12:17 12:17 12:17 WBC (3.8-10.6) k/uL RBC 2.10 L (4.30-5.90) m/uL Hgb 8.7 L (13.0-17.5) gm/dL Hct 28.2 L (39.0-53.0) % MCV 134.3 H (80.0-100.0) fL MCH 41.6 H (25.0-35.0) pg MCHC (31.0-37.0) g/dL RDW 21.0 H (11.5-15.5) % Plt Count 43 L (150-450) k/uL Neutrophils # (Manual) (1.3-7.7) k/uL Lymphocytes # (Manual) 0.15 L (1.0-4.8) k/uL Nucleated RBCs (0-0) /100 WBC Macrocytosis Marked A ABG pH (7.35-7.45) ABG pCO2 (35-45) mmHg ABG HCO3 (21-25) mmol/L ABG Total CO2 (19-24) mmol/L Chloride 113 H (98-107) mmol/L Carbon Dioxide 11 L (22-30) mmol/L BUN 110 H* (9-20) mg/dL Creatinine 4.22 H (0.66-1.25) mg/dL Glucose 105 H (74-99) mg/dL POC Glucose (mg/dL) (75-99) mg/dL Calcium 7.3 L (8.4-10.2) mg/dL Phosphorus 7.4 H (2.5-4.5) mg/dL Ferritin (22.0-322.0) ng/mL AST (17-59) U/L ALT (4-49) U/L Troponin I 0.105 H* (0.000-0.034) ng/mL Total Protein 5.4 L (6.3-8.2) g/dL Albumin 2.7 L (3.5-5.0) g/dL Procalcitonin (0.02-0.09) ng/mL Crossmatch 07/04/19 07/04/19 07/04/19 Range/Units 12:37 18:40 20:51 WBC (3.8-10.6) k/uL RBC (4.30-5.90) m/uL Hgb (13.0-17.5) gm/dL Hct (39.0-53.0) % MCV (80.0-100.0) fL MCH (25.0-35.0) pg MCHC (31.0-37.0) g/dL RDW (11.5-15.5) % Plt Count (150-450) k/uL Neutrophils # (Manual) (1.3-7.7) k/uL Lymphocytes # (Manual) (1.0-4.8) k/uL Nucleated RBCs (0-0) /100 WBC Macrocytosis ABG pH 7.25 L (7.35-7.45) ABG pCO2 22 L (35-45) mmHg ABG HCO3 9 L* (21-25) mmol/L ABG Total CO2 10 L (19-24) mmol/L Chloride (98-107) mmol/L Carbon Dioxide (22-30) mmol/L BUN (9-20) mg/dL Creatinine (0.66-1.25) mg/dL Glucose (74-99) mg/dL POC Glucose (mg/dL) 32 L (75-99) mg/dL Calcium (8.4-10.2) mg/dL Phosphorus (2.5-4.5) mg/dL Ferritin (22.0-322.0) ng/mL AST (17-59) U/L ALT (4-49) U/L Troponin I 0.125 H* (0.000-0.034) ng/mL Total Protein (6.3-8.2) g/dL Albumin (3.5-5.0) g/dL Procalcitonin (0.02-0.09) ng/mL Crossmatch 07/04/19 07/05/19 07/05/19 Range/Units 20:53 04:18 04:18 WBC 11.8 H (3.8-10.6) k/uL RBC 2.22 L (4.30-5.90) m/uL Hgb 9.0 L (13.0-17.5) gm/dL Hct 29.5 L (39.0-53.0) % MCV 133.2 H (80.0-100.0) fL MCH 40.5 H (25.0-35.0) pg MCHC 30.4 L (31.0-37.0) g/dL RDW 20.5 H (11.5-15.5) % Plt Count 19 L* D (150-450) k/uL Neutrophils # (Manual) 10.70 H (1.3-7.7) k/uL Lymphocytes # (Manual) 0.47 L (1.0-4.8) k/uL Nucleated RBCs 2 H (0-0) /100 WBC Macrocytosis Marked A ABG pH (7.35-7.45) ABG pCO2 (35-45) mmHg ABG HCO3 (21-25) mmol/L ABG Total CO2 (19-24) mmol/L Chloride 111 H (98-107) mmol/L Carbon Dioxide 10 L (22-30) mmol/L BUN 122 H* (9-20) mg/dL Creatinine 4.12 H (0.66-1.25) mg/dL Glucose 179 H (74-99) mg/dL POC Glucose (mg/dL) 167 H (75-99) mg/dL Calcium 7.0 L (8.4-10.2) mg/dL Phosphorus 8.8 H (2.5-4.5) mg/dL Ferritin (22.0-322.0) ng/mL AST 494 H (17-59) U/L ALT 284 H (4-49) U/L Troponin I (0.000-0.034) ng/mL Total Protein 5.1 L (6.3-8.2) g/dL Albumin 2.5 L (3.5-5.0) g/dL Procalcitonin (0.02-0.09) ng/mL Crossmatch Microbiology - Last 24 Hours (Table) 07/03/19 22:23 Blood Culture Gram Stain - Preliminary Blood Blood Culture - Preliminary Escherichia coli 05/25/20 22:23 Blood Culture - Final Blood 07/04/19 00:25 Urine Culture - Preliminary Urine,Clean Catch Assessment and Plan Plan: E. coli bacteremia, source UTI versus pneumonia Left-sided hydronephrosis Acute metabolic encephalopathy Acute hypoxic respiratory failure Acute COPD exacerbation Community acquired pneumonia, high suspicion for acute covid 19 infection [facility] Metabolic acidosis secondary to acute kidney injury Acute on chronic anemia Elevated troponin A-fib with RVR Acute CHF exacerbation, unknown type Hx of thrombocytosis now with thromocytopenia Hx of ETOH abuse, last drink in march. Plan Started on amiodarone drip by cardiology for A. fib with RVR. Bronchodilators Steroids Antibiotics coverage expanded to Zosyn Await second Covid 19 testing, first one was negative Likely require dialysis, followed by nephrology Urology consult Re hydronephrosis Monitor CBC and electrolytes. Supportive care in the intensive care unit Seizure precautions Benzos per CIWA scale when necessary Thiamine CODE STATUS: Full code DVT prophylaxis: Anticoagulation is contraindicated due to low platelet count. Discussed with: Dr. Brown RN Anticipated discharge place: Pending clinical course
[2019-07-05] MEDS: THIAMINE 100 MG/ML 2 ML VIAL IVP SCH ×2 (14:16→23:53)
--- NOTE | 2019-07-05 16:45 | P.GSCN ---
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 He is also found to be extremely tachycardic and in acute renal failure. I was asked to see the patient for hydronephrosis on the left side. The patient has had a deterioration of his health over the last several months. He had an aortic endograft apparently in February. A creatinine at that point in time was normal. Creatinine now is 4. His computed tomography scan shows some mild left-sided hydronephrosis. The ureter slightly dilated down to the area of the aortic bifurcation. In reviewing the computed tomography scan from February it is the same. I suspect the left hydronephrosis is due to the inflammation from the aortic aneurysm. The patient has no urologic history. He can give me no history due to his mental status at present. His urine showed inflammation. He does have an indwelling catheter. The patient is growing E. coli in both his urine and his blood. The patient is anemic with hemoglobin of 9. He is in renal failure cr eatinine of 4. His liver functions are markedly abnormal. His platelet count was 17,000. Review of Systems ROS unobtainable: due to mental status Past Medical History Past Medical History: Blood Disorder, Hyperlipidemia, Hypertension, Osteoarthritis (OA) Additional Past Medical History / Comment(s): FX PELVIS, WRIST, ELBOW, SPINE, Idiopathic thrombocytosis, AAA History of Any Multi-Drug Resistant Organisms: None Reported Past Surgical History: Appendectomy, Orthopedic Surgery, Tonsillectomy Additional Past Surgical History / Comment(s): DECOMPRESSION LAMINECTOMY, ORIF L ELBOW, L SUBMANDIBULAR GLAND EXCISED, EYE SURGERY, R CEA, EVAR Past Anesthesia/Blood Transfusion Reactions: No Reported Reaction Past Psychological History: No Psychological Hx Reported Smoking Status: Current every day smoker Past Alcohol Use History: None Reported, Heavy - Past Family History Father Family Medical History: Unable to Obtain, Cancer, Prostate Disorder Medications and Allergies Home Medications Medication Instructions Recorded Confirmed Type Atenolol [Tenormin] 50 mg PO DAILY@0800 01/07/17 07/04/19 History Atorvastatin Calcium [Lipitor] 5 mg PO DAILY@0800 01/07/17 07/04/19 History DULoxetine HCL [Cymbalta] 60 mg PO HS@199901/07/17 07/04/19 History Ranitidine HCl [Zantac] 150 mg PO BID@799,199901/07/17 07/04/19 History Tamsulosin [Flomax] 0.4 mg PO HS@199901/07/17 07/04/19 History Calcium/Magnesium/Zinc 1 tab PO DAILY@79901/15/19 07/04/19 History [Zmghofw-Cdkhoeexp-Bqdx Tablet] Cyanocobalamin (Vitamin B-12) 1,000 mcg PO DAILY@0801/15/19 07/04/19 History [Vitamin B-12] Mometasone/Formoterol [Dulera 200 2 puff INHALATION RT-BID@799,199901/15/19 07/04/19 History Mcg/5 Mcg Inhaler] Hydroxyurea [Hydrea] 500 mg PO BID #60 cap 01/17/19 07/04/19 Rx ALPRAZolam [Xanax] 0.25 mg PO HS 07/04/19 07/04/19 History Ipratropium-Albuterol Nebulize 3 ml INHALATION RT-QID 07/04/19 07/04/19 History [Duoneb 0.5 mg-3 mg/3 ml Soln] Megestrol [Megace] 400 mg PO DAILY 07/04/19 07/04/19 History predniSONE 10 mg PO DAILY 07/04/19 07/04/19 History Allergies Allergy/AdvReac Type Severity Reaction Status Date / Time SANTOSH Inhibitors Allergy Unknown Verified 07/04/19 13:20 gabapentin [From Neurontin] AdvReac Severe Swelling Verified 07/04/19 13:20 Surgical - Exam Vital Signs Temp Pulse Resp BP 99.2 F 109 H 30 H 90/49 07/03/19 22:07 07/03/19 22:07 07/03/19 22:07 07/03/19 22:07 - General well developed, severe distress, cachectic, chronically ill - Neck trachea midline - Respiratory The patient is on a Ventimask with labored respiration - Cardiovascular Rhythm: irregularly irregular - Abdomen Abdomen: non tender - Genitourinary Indwelling catheter normal penis with no external lesions, testicles present - Integumentary The patient has severe modelling of his extremities upper and lower - Neurologic confused Results - Labs 07/05/19 04:18 07/05/19 04:18 Abnormal Lab Results - Last 24 Hours (Table) 07/04/19 07/04/19 07/04/19 Range/Units 02:38 18:40 20:51 WBC (3.8-10.6) k/uL RBC (4.30-5.90) m/uL Hgb (13.0-17.5) gm/dL Hct (39.0-53.0) % MCV (80.0-100.0) fL MCH (25.0-35.0) pg MCHC (31.0-37.0) g/dL RDW (11.5-15.5) % Plt Count (150-450) k/uL Neutrophils # (Manual) (1.3-7.7) k/uL Lymphocytes # (Manual) (1.0-4.8) k/uL Nucleated RBCs (0-0) /100 WBC Macrocytosis Chloride (98-107) mmol/L Carbon Dioxide (22-30) mmol/L BUN (9-20) mg/dL Creatinine (0.66-1.25) mg/dL Glucose (74-99) mg/dL POC Glucose (mg/dL) 32 L (75-99) mg/dL Calcium (8.4-10.2) mg/dL Phosphorus (2.5-4.5) mg/dL AST (17-59) U/L ALT (4-49) U/L Troponin I 0.125 H* (0.000-0.034) ng/mL Total Protein (6.3-8.2) g/dL Albumin (3.5-5.0) g/dL Crossmatch See Detail 07/04/19 07/05/19 07/05/19 Range/Units 20:53 04:18 04:18 WBC 11.8 H (3.8-10.6) k/uL RBC 2.22 L (4.30-5.90) m/uL Hgb 9.0 L (13.0-17.5) gm/dL Hct 29.5 L (39.0-53.0) % MCV 133.2 H (80.0-100.0) fL MCH 40.5 H (25.0-35.0) pg MCHC 30.4 L (31.0-37.0) g/dL RDW 20.5 H (11.5-15.5) % Plt Count 19 L* D (150-450) k/uL Neutrophils # (Manual) 10.70 H (1.3-7.7) k/uL Lymphocytes # (Manual) 0.47 L (1.0-4.8) k/uL Nucleated RBCs 2 H (0-0) /100 WBC Macrocytosis Marked A Chloride 111 H (98-107) mmol/L Carbon Dioxide 10 L (22-30) mmol/L BUN 122 H* (9-20) mg/dL Creatinine 4.12 H (0.66-1.25) mg/dL Glucose 179 H (74-99) mg/dL POC Glucose (mg/dL) 167 H (75-99) mg/dL Calcium 7.0 L (8.4-10.2) mg/dL Phosphorus 8.8 H (2.5-4.5) mg/dL AST 494 H (17-59) U/L ALT 284 H (4-49) U/L Troponin I (0.000-0.034) ng/mL Total Protein 5.1 L (6.3-8.2) g/dL Albumin 2.5 L (3.5-5.0) g/dL Crossmatch Microbiology - Last 24 Hours (Table) 07/04/19 00:25 Urine Culture - Preliminary Urine,Clean Catch Gram Neg Bacilli 07/03/19 22:23 Blood Culture Gram Stain - Preliminary Blood Blood Culture - Preliminary Escherichia coli 07/03/19 22:23 Blood Culture - Final Blood Diabetes panel 07/05/19 Range/Units 04:18 Sodium 142 (137-145) mmol/L Potassium 5.0 (3.5-5.1) mmol/L Chloride 111 H (98-107) mmol/L Carbon Dioxide 10 L (22-30) mmol/L BUN 122 H* (9-20) mg/dL Creatinine 4.12 H (0.66-1.25) mg/dL Glucose 179 H (74-99) mg/dL Calcium 7.0 L (8.4-10.2) mg/dL AST 494 H (17-59) U/L ALT 284 H (4-49) U/L Alkaline Phosphatase 56 (38-126) U/L Total Protein 5.1 L (6.3-8.2) g/dL Albumin 2.5 L (3.5-5.0) g/dL Calcium panel 07/05/19 Range/Units 04:18 Calcium 7.0 L (8.4-10.2) mg/dL Phosphorus 8.8 H (2.5-4.5) mg/dL Albumin 2.5 L (3.5-5.0) g/dL Pituitary panel 07/05/19 Range/Units 04:18 Sodium 142 (137-145) mmol/L Potassium 5.0 (3.5-5.1) mmol/L Chloride 111 H (98-107) mmol/L Carbon Dioxide 10 L (22-30) mmol/L BUN 122 H* (9-20) mg/dL Creatinine 4.12 H (0.66-1.25) mg/dL Glucose 179 H (74-99) mg/dL Calcium 7.0 L (8.4-10.2) mg/dL Adrenal panel 07/05/19 Range/Units 04:18 Sodium 142 (137-145) mmol/L Potassium 5.0 (3.5-5.1) mmol/L Chloride 111 H (98-107) mmol/L Carbon Dioxide 10 L (22-30) mmol/L BUN 122 H* (9-20) mg/dL Creatinine 4.12 H (0.66-1.25) mg/dL Glucose 179 H (74-99) mg/dL Calcium 7.0 L (8.4-10.2) mg/dL Total Bilirubin 0.7 (0.2-1.3) mg/dL AST 494 H (17-59) U/L ALT 284 H (4-49) U/L Alkaline Phosphatase 56 (38-126) U/L Total Protein 5.1 L (6.3-8.2) g/dL Albumin 2.5 L (3.5-5.0) g/dL - Imaging CT scan - abdomen: report reviewed, image reviewed CT scan - chest: image reviewed CT scan - pelvis: report reviewed Assessment and Plan Assessment: Impression: Left-sided hydronephrosis mild chronic. Not contributing to renal insufficiency. Urinary tract infection with sepsis. Severe respiratory distress. Recommendations: From urologic standpoint there is nothing I have to offer. The left hydronephrosis is not contributing to his renal insufficiency. His overall condition cardiac pulmonary and liver are probably contributing to this. The sepsis from the urinary tract is contributing is also a consideration.
[2019-07-05 17:20] LABS: Calcium 7.3 mg/dL (8.4-10.2); Potassium 5.1 mmol/L (3.5-5.1)
--- NOTE | 2019-07-05 17:20 | PN ---
PROGRESS NOTE DATE OF SERVICE: 07/05/2019 REASON FOR FOLLOWUP: Sepsis with gram-negative bacteremia. INTERVAL HISTORY: The patient is currently afebrile. The patient is hemodynamically stable, not on pressor support. Did have a problem with atrial fibrillation with RVR and has been on Cardizem and amiodarone. Remains to be on BiPAP. No vomiting or any diarrhea has been reported. Patient was unable to provide any history. PHYSICAL EXAMINATION: Blood pressure is 99/65 with a pulse of 104, temperature is 97.9. He is 98% on BiPAP. General description is an elderly male, on BiPAP in no distress. RESPIRATORY SYSTEM: Unlabored breathing, clear to auscultation anteriorly. HEART: S1, S2. ABDOMEN: Soft, no tenderness, no rigidity. EXTREMITIES: Some trace edema of the feet. LABS: Hemoglobin 9, white count 11.8, BUN of 122, creatinine 4.12. Blood is E coli. Urine showing gram-negative. DIAGNOSTIC IMPRESSION AND PLAN: Patient with sepsis with likely a combination of a complicated UTI and as well as possible aspiration pneumonitis. Patient is covered with Zosyn to continue and will monitor clinical course closely. Continue supportive care. MMODL / IJN: [id number] /
[2019-07-05] MEDS ORDERED: methylPREDNISolone SOD SUCCI 40 MG/ML 1 ML VIAL ONE (18:00)
--- NOTE | 2019-07-05 20:47 | ECHOF ---
Referral Reason:chf MEASUREMENTS -------- HEIGHT: 182.9 cm WEIGHT: 80.7 kg BP: 107/86 IVSd: 1.9 cm (0.6 - 1.1) LVIDd: 3.4 cm (3.9 - 5.3) LVPWd: 1.7 cm (0.6 - 1.1) IVSs: 2.3 cm LVIDs: 2.9 cm LVPWs: 2.4 cm LA Diam: 4.0 cm (2.7 - 3.8) RVIDd: 3.6 cm (< 3.3) Ao Diam: 4.2 cm (2.0 - 3.7) AV Cusp: 2.8 cm (1.5 - 2.6) EPSS: 1.1 cm MV E Osmin: 1.05 m/s MV DecT: 74 ms MV A Osmin: 0.80 m/s MV E/A Ratio: 1.31 RAP: 15.00 mmHg RVSP: 46.78 mmHg MV EF SLOPE: 80.83 mm/s (70 - 150) MV EXCURSION: 8.24 mm (> 18.000) FINDINGS -------- Resting tachycardia (HR>100bpm). This was a technically difficult study with suboptimal views. The left ventricular size is normal. There is severe concentric left ventricular hypertrophy. Ove rall left ventricular systolic function is moderate-severely impaired with, an EF between 30 - 35 %. The right ventricle is mildly enlarged. The left atrium is mildly dilated. The right atrium was not well visualized. 5.0mg of Lumason was utilized for enhancement of images The aortic valve was not well visualized. Mild mitral regurgitation is present. Mild tricuspid regurgitation present. There is moderate pulmonary hypertension. The right ventric ular systolic pressure, as measured by Doppler, is 46.78mmHg. The pulmonic valve was not well visualized. The aortic root is dilated measuring 4.2cm. IVC Not well visulized. There is no pericardial effusion. CONCLUSIONS -------- 1. Resting tachycardia (HR>100bpm). 2. This was a technically difficult study with suboptimal views. 3. The left ventricular size is normal. 4. There is severe concentric left ventricular hypertrophy. 5. Overall left ventricular systolic function is moderate-severely impaired with, an EF between 30 - 35 %. 6. The right ventricle is mildly enlarged. 7. The left atrium is mildly dilated. 8. The right atrium was not well visualized. 9. 5.0mg of Lumason was utilized for enhancement of images 10. The aortic valve was not well visualized. 11. Mild mitral regurgitation is present. 12. Mild tricuspid regurgitation present. 13. There is moderate pulmonary hypertension. 14. The right ventricular systolic pressure, as measured by Doppler, is 46.78mmHg. 15. The pulmonic valve was not well visualized. 16. The aortic root is dilated measuring 4.2cm. 17. IVC Not well visulized. 18. There is no pericardial effusion. COSTUMING SUPERVISOR: Raquel Montano RDCS
[2019-07-06] MEDS: DILTIAZEM 125 MG in SODIUM CHLORIDE 0.9% 100 ML IV SCH (04:16)
[2019-07-06 05:48] LABS: ABG Base Excess -0.3 mmol/L; ABG HCO3 23 mmol/L (21-25); ABG Oxygen Saturation 97.2 % (94-97); ABG PCO2 28 mmHg (35-45); ABG PH 7.52 (7.35-7.45); ABG PO2 93 mmHg (83-108); ABG TCO2 23 mmol/L (19-24); Allen Test Performed? Yes
[2019-07-06 06:32] LABS: Calcium 6.6 mg/dL (8.4-10.2); Potassium 4.2 mmol/L (3.5-5.1)
[2019-07-06 06:43] LABS: Anisocytosis Moderate; Basophils % (A) 0 %; Eosinophils % (A) 0 %; HCT 28.4 % (39.0-53.0); HGB 8.6 gm/dL (13.0-17.5); Hypochromasia Marked; Lymphocytes # (A) 0.2 k/uL (1.0-4.8); Lymphocytes % (A) 3 %; MCHC 30.1 g/dL (31.0-37.0); MCV 132.9 fL (80.0-100.0); Macrocytosis Marked; Mean Platelet Volume 13.9; Monocytes # (A) 0.1 k/uL (0-1.0); Monocytes % (A) 2 %; Neutrophils # (A) 6.9 k/uL (1.3-7.7); Neutrophils % (A) 95 %; RBC 2.14 m/uL (4.30-5.90); RDW 20.1 % (11.5-15.5); WBC 7.3 k/uL (3.8-10.6)
[2019-07-06] MEDS: methylPREDNISolone SOD SUCCI 40 MG/ML 1 ML VIAL IV SCH ×3 (06:53→18:58)
--- NOTE | 2019-07-06 07:42 | XR ---
EXAMINATION TYPE: XR chest 1V portable DATE OF EXAM: 07/06/2019 COMPARISON: 07/05/2019 HISTORY: Difficulty breathing TECHNIQUE: Single frontal view of the chest is obtained. FINDINGS: Marked worsening moderate pulmonary vascular congestion and increasing confluence of multi focal peripherally predominant opacities. Cardiomediastinal silhouette is again mildly enlarged. Ther e is diffuse osseous demineralization with moderate degenerative change of the spine and shoulders. N o new pleural effusion. IMPRESSION: Marked worsening of the now moderate pulmonary vascular congestion multifocal peripheral opacities that may be on the basis of multifocal edema or more likely multifocal pneumonia.
[2019-07-06 08:08] LABS: Platelet Count 8 k/uL (150-450)
[2019-07-06 08:09] LABS: Poikilocytosis (M) Present; Polychromasia Present
[2019-07-06] MEDS: IPRATROPIUM-ALBUTEROL 3 ML NEB INHALATION SCH ×4 (08:21→19:48)
[2019-07-06] MEDS: FORMOTEROL FUMARATE 20 MCG/2 ML NEBU INHALATION SCH ×2 (08:30→19:48)
[2019-07-06] MEDS: BUDESONIDE 1 MG/2 ML NEBU INHALATION SCH ×2 (08:30→19:48)
[2019-07-06] MEDS ORDERED: AMIODARONE 200 MG TAB PO SCH (09:00)
[2019-07-06] MEDS ORDERED: FUROSEMIDE 10 MG/ML 10 ML VIAL IV STA (09:13)
--- NOTE | 2019-07-06 09:14 | P.PN ---
Subjective Patient is seen in follow-up for acute kidney injury. Renal function a little better. Creatinine 4.02 today. He is currently on BiPAP. He is currently maintained on Cardizem and amiodarone drip for A. fib. Urine output 30-75 mL an hour. Sodium level 147 today. Bicarb level 16. Vital signs: Blood pressure stable. Remains in A. fib. General: The patient appeared well nourished and normally developed. HEENT: Currently on BiPAP. LUNGS: Lungs are clear to auscultation and percussion. Breath sounds decreased. HEART: Regular rate and rhythm. ABDOMEN: Soft, no distention noted. EXTREMITITES: No edema. Objective - Vital Signs Vital signs: Vital Signs Temp 97.5 F L 07/06/19 08:00 Pulse 71 07/06/19 09:00 Resp 27 H 07/06/19 09:00 BP 113/68 07/06/19 09:00 Pulse Ox 97 07/06/19 09:00 Intake & Output 07/05/19 07/06/19 07/06/19 18:59 06:59 18:59 Intake Total 1523 906.333 225 Output Total 680 630 155 Balance 843 276.333 70 Weight 85.9 kg Intake: IV 825 825 225 Dextrose 5% in Water 1, 825 825 225 000 ml @ 75 mls/hr IV . [id number] RENE with Sodium Bicarb (1 Meq/ml) 150 ml Rx#:[id number] Intake, IV Titration 698 81.333 Amount Amiodarone 300 mg In 250 Dextrose 5% in Water 250 ml @ 0.5 MG/MIN 25 mls/hr IV .Q10H RENE Rx#: [id number] Azithromycin 500 mg In 250 Sodium Chloride 0.9% 250 ml @ 250 mls/hr IVPB DAILY RENE Rx#:[id number] Dextrose 5% in Water 1, 75 000 ml @ 75 mls/hr IV . [id number] RENE with Sodium Bicarb (1 Meq/ml) 150 ml Rx#:[id number] Diltiazem 125 mg In 23 81.333 Sodium Chloride 0.9% 100 ml @ 10 MG/HR 10 mls/hr IV .[id number] RENE Rx#: [id number] Piperacillin-Tazobactam 3 100 .375 gm In Sodium Chloride 0.9% 100 ml @ 25 mls/hr IVPB Q12HR [facility] Rx #:[id number] Output: Urine 680 630 155 Other: Voiding Method Indwelling Catheter Indwelling Catheter - Labs CBC & Chem 7: 07/06/19 05:33 07/06/19 05:33 Labs: Abnormal Lab Results - Last 24 Hours (Table) 07/05/19 07/06/19 07/06/19 Range/Units 16:59 05:32 05:33 RBC 2.14 L (4.30-5.90) m/uL Hgb 8.6 L (13.0-17.5) gm/dL Hct 28.4 L (39.0-53.0) % MCV 132.9 H (80.0-100.0) fL MCH 40.0 H (25.0-35.0) pg MCHC 30.1 L (31.0-37.0) g/dL RDW 20.1 H (11.5-15.5) % Plt Count 8 L* D (150-450) k/uL Lymphocytes # 0.2 L (1.0-4.8) k/uL Macrocytosis Marked A ABG pH 7.52 H (7.35-7.45) ABG pCO2 28 L (35-45) mmHg ABG O2 Saturation 97.2 H (94-97) % Sodium 146 H (137-145) mmol/L Chloride 109 H (98-107) mmol/L Carbon Dioxide 12 L (22-30) mmol/L BUN 126 H* (9-20) mg/dL Creatinine 4.60 H (0.66-1.25) mg/dL Glucose 155 H (74-99) mg/dL Calcium 7.3 L (8.4-10.2) mg/dL 07/06/19 Range/Units 05:33 RBC (4.30-5.90) m/uL Hgb (13.0-17.5) gm/dL Hct (39.0-53.0) % MCV (80.0-100.0) fL MCH (25.0-35.0) pg MCHC (31.0-37.0) g/dL RDW (11.5-15.5) % Plt Count (150-450) k/uL Lymphocytes # (1.0-4.8) k/uL Macrocytosis ABG pH (7.35-7.45) ABG pCO2 (35-45) mmHg ABG O2 Saturation (94-97) % Sodium 147 H (137-145) mmol/L Chloride 109 H (98-107) mmol/L Carbon Dioxide 16 L (22-30) mmol/L BUN 130 H* (9-20) mg/dL Creatinine 4.02 H (0.66-1.25) mg/dL Glucose 189 H (74-99) mg/dL Calcium 6.6 L (8.4-10.2) mg/dL Microbiology - Last 24 Hours (Table) 07/03/19 22:23 Blood Culture Gram Stain - Final Blood Blood Culture - Final Escherichia coli 07/04/19 00:25 Urine Culture - Preliminary Urine,Clean Catch Gram Neg Bacilli Assessment and Plan Plan: Assessment: 1. Acute kidney injury secondary to ATN secondary to hypotension/sepsis. Creatinine peaked at 4.6 this admission and is 4.02 today. No hydronephrosis noted on kidney ultrasound. However the left kidney could not be visualized. Mild left hydronephrosis was noted on CAT scan. Baseline creatinine near 1. 2. Respiratory alkalosis with metabolic acidosis. 3. History of alcohol abuse. 4. Pneumonia maintained on antibiotics. COVID19 PCR pending. 5. Hyperphosphatemia secondary to acute kidney injury. 6. Multiple falls. 7. A. fib with RVR maintained on Cardizem and amiodarone. Cardiology following. 8. E. coli bacteremia maintained on antibiotics. Urine culture also positive for gram-negative bacilli. 9. Thrombocytopenia. Possibly due to sepsis and alcohol abuse. 10. Hypernatremia secondary to lack of oral water intake. 11. Left-sided hydronephrosis. Seen by urology. No intervention is planned at this time. 12. Acute systolic CHF with ejection fraction of 30-35% with moderate pulmonary hypertension. Plan: I will change bicarb drip to D5W with 75 A of bicarb to be run at 100 mL an hour. This is hypotonic solution to help with hypernatremia. Lasix 80 mg IV once today. Maintain Ladd catheter. Monitor phosphorus level. Will add phosphate binder once tolerating oral intake. Avoid nephrotoxins. Follow up cultures. Continue to assess daily for the need for renal placement therapy. Repeat BMP this evening. Discussed with the daughter on admission. She is agreeable to proceed with renal placement therapy if needed. Case also discussed with the health science writer.
--- NOTE | 2019-07-06 09:17 | P.PN ---
Subjective Progress Note Date: 07/06/19 Principal diagnosis: paroxysmal atrial fibrillation This is a 73-year-old gentleman with extensive past medical history consistent for thrombocytopenia, chronic kidney disease, as well as multiple comorbid conditions, was brought to the emergency room by his daughter because the patient was not feeling well. Currently the patient is lethargic and the history was taken from the chart. Also the history was taken from the nurse at bedside. The patient was brought to the emergency room by his daughter. Apparently he fell at home several times. He was drinking alcohol excessively. No indication of any symptoms of chest pain or chest discomfort or shortness of breath. No indication of any history of coronary artery disease or congestive heart failure or cardiac arrhythmia. When the patient was seen in the emergency department he was quite hypotensive and required IV fluid excessively. Also he was found to be in acute renal failure. Nephrology is on the case. The patient was seen today, 07/06/2019. He went into atrial fibrillation with RVR yesterday and was started on Cardizem drip as well as amiodarone drip. He is converted to normal sinus mechanism. I will continue both drips at this point. He is nothing by mouth at this point because of possible difficulty swallowing. I would hold any oral anticoagulation or IV anticoagulation at this point in view of the severe thrombocytopenia. Overall the prognosis is very poor.the echo was reviewed and revealed severe cardiomyopathy with an EF between 30-35%. Objective - Vital Signs Vital signs: Vital Signs Temp 97.5 F L 07/06/19 08:00 Pulse 71 07/06/19 09:00 Resp 27 H 07/06/19 09:00 BP 113/68 07/06/19 09:00 Pulse Ox 97 07/06/19 09:00 Intake & Output 07/05/19 07/06/19 07/06/19 18:59 06:59 18:59 Intake Total 1523 906.333 225 Output Total 680 630 155 Balance 843 276.333 70 Weight 85.9 kg Intake: IV 825 825 225 Dextrose 5% in Water 1, 825 825 225 000 ml @ 75 mls/hr IV . [id number] RENE with Sodium Bicarb (1 Meq/ml) 150 ml Rx#:[id number] Intake, IV Titration 698 81.333 Amount Amiodarone 300 mg In 250 Dextrose 5% in Water 250 ml @ 0.5 MG/MIN 25 mls/hr IV .Q10H RENE Rx#: [id number] Azithromycin 500 mg In 250 Sodium Chloride 0.9% 250 ml @ 250 mls/hr IVPB DAILY RENE Rx#:[id number] Dextrose 5% in Water 1, 75 000 ml @ 75 mls/hr IV . [id number] RENE with Sodium Bicarb (1 Meq/ml) 150 ml Rx#:[id number] Diltiazem 125 mg In 23 81.333 Sodium Chloride 0.9% 100 ml @ 10 MG/HR 10 mls/hr IV .[id number] RENE Rx#: [id number] Piperacillin-Tazobactam 3 100 .375 gm In Sodium Chloride 0.9% 100 ml @ 25 mls/hr IVPB Q12HR RENE Rx #:[id number] Output: Urine 680 630 155 Other: Voiding Method Indwelling Catheter Indwelling Catheter - Constitutional General appearance: Present: no acute distress - Respiratory Respiratory: bilateral: diminished - Cardiovascular Rhythm: regular Heart sounds: normal: S1, S2 - Labs CBC & Chem 7: 07/06/19 05:33 07/06/19 05:33 Labs: Abnormal Lab Results - Last 24 Hours (Table) 07/05/19 07/06/19 07/06/19 Range/Units 16:59 05:32 05:33 RBC 2.14 L (4.30-5.90) m/uL Hgb 8.6 L (13.0-17.5) gm/dL Hct 28.4 L (39.0-53.0) % MCV 132.9 H (80.0-100.0) fL MCH 40.0 H (25.0-35.0) pg MCHC 30.1 L (31.0-37.0) g/dL RDW 20.1 H (11.5-15.5) % Plt Count 8 L* D (150-450) k/uL Lymphocytes # 0.2 L (1.0-4.8) k/uL Macrocytosis Marked A ABG pH 7.52 H (7.35-7.45) ABG pCO2 28 L (35-45) mmHg ABG O2 Saturation 97.2 H (94-97) % Sodium 146 H (137-145) mmol/L Chloride 109 H (98-107) mmol/L Carbon Dioxide 12 L (22-30) mmol/L BUN 126 H* (9-20) mg/dL Creatinine 4.60 H (0.66-1.25) mg/dL Glucose 155 H (74-99) mg/dL Calcium 7.3 L (8.4-10.2) mg/dL 07/06/19 Range/Units 05:33 RBC (4.30-5.90) m/uL Hgb (13.0-17.5) gm/dL Hct (39.0-53.0) % MCV (80.0-100.0) fL MCH (25.0-35.0) pg MCHC (31.0-37.0) g/dL RDW (11.5-15.5) % Plt Count (150-450) k/uL Lymphocytes # (1.0-4.8) k/uL Macrocytosis ABG pH (7.35-7.45) ABG pCO2 (35-45) mmHg ABG O2 Saturation (94-97) % Sodium 147 H (137-145) mmol/L Chloride 109 H (98-107) mmol/L Carbon Dioxide 16 L (22-30) mmol/L BUN 130 H* (9-20) mg/dL Creatinine 4.02 H (0.66-1.25) mg/dL Glucose 189 H (74-99) mg/dL Calcium 6.6 L (8.4-10.2) mg/dL Microbiology - Last 24 Hours (Table) 07/03/19 22:23 Blood Culture Gram Stain - Final Blood Blood Culture - Final Escherichia coli 07/04/19 00:25 Urine Culture - Preliminary Urine,Clean Catch Gram Neg Bacilli Assessment and Plan Assessment: assessment Acute renal failure severe thrombocytopenia Paroxysmal atrial fibrillation Respiratory failure Possible pneumonia Plan continue the amiodarone drip as well as Cardizem drip Continue holding any oral anticoagulation or IV anticoagulation at this point The echo was reviewed and showed severe cardiomyopathy Follow-up with the patient
[2019-07-06] MEDS: DEXTROSE 5% IN WATER 1,000 ML with SODIUM BICARB (1 MEQ/ML) 75 ML IV SCH ×2 (09:53→22:24)
--- NOTE | 2019-07-06 10:03 | P.PN ---
Subjective Progress Note Date: 07/06/19 Principal diagnosis: sob Patient was seen and examined, is still on BiPAP. He denied any pain. He converted to sinus rhythm last night. No other overnight issues. Objective - Vital Signs Vital signs: Vital Signs Temp 97.5 F L 07/06/19 08:00 Pulse 71 07/06/19 09:00 Resp 27 H 07/06/19 09:00 BP 113/68 07/06/19 09:00 Pulse Ox 97 07/06/19 09:00 Intake & Output 07/05/19 07/06/19 07/06/19 18:59 06:59 18:59 Intake Total 1523 906.333 225 Output Total 680 630 155 Balance 843 276.333 70 Weight 85.9 kg Intake: IV 825 825 225 Dextrose 5% in Water 1, 825 825 225 000 ml @ 75 mls/hr IV . [id number] [facility] with Sodium Bicarb (1 Meq/ml) 150 ml Rx#:[id number] Intake, IV Titration 698 81.333 Amount Amiodarone 300 mg In 250 Dextrose 5% in Water 250 ml @ 0.5 MG/MIN 25 mls/hr IV .Q10H [facility] Rx#: [id number] Azithromycin 500 mg In 250 Sodium Chloride 0.9% 250 ml @ 250 mls/hr IVPB DAILY [facility] Rx#:[id number] Dextrose 5% in Water 1, 75 000 ml @ 75 mls/hr IV . [id number] [facility]ENE with Sodium Bicarb (1 Meq/ml) 150 ml Rx#:[id number] Diltiazem 125 mg In 23 81.333 Sodium Chloride 0.9% 100 ml @ 10 MG/HR 10 mls/hr IV .[id number] [facility] Rx#: [id number] Piperacillin-Tazobactam 3 100 .375 gm In Sodium Chloride 0.9% 100 ml @ 25 mls/hr IVPB Q12HR [facility] Rx #:[id number] Output: Urine 680 630 155 Other: Voiding Method Indwelling Catheter Indwelling Catheter - Exam Constitutional: Sedated. On bipap Eyes:Anicteric sclerae, moist conjunctiva, no lid-lag, PERRLA, ENMT: Oropharynx clear, no erythema, exudates Neck: Supple, no masses, or JVD, No carotid bruits, No thyromegaly Lungs: Diminished breath sounds bilaterally. Labored breathing with mild accessory muscle use Cardiovascular: Tachycardic, regular, No murmurs, gallops, or rubs, No peripheral edema Abdominal: Distended, firm, Nontender, no guarding, rebound or rigidity, Normoactive bowel sounds, No hepatomegaly, No splenomegaly, No palpable mass Skin: Normal temperature, tone, texture, turgor, no induration, No subcutaneous nodules, No rash, lesions, No ulcers Extremities: No digital cyanosis, No clubbing, Pedal pulses intact and symmetrical, Radial pulses intact and symmetrical, No calf tenderness Neuro: Sedated, moving all extremities. - Labs CBC & Chem 7: 07/06/19 05:33 07/06/19 05:33 Labs: Abnormal Lab Results - Last 24 Hours (Table) 07/05/19 07/06/19 07/06/19 Range/Units 16:59 05:32 05:33 RBC 2.14 L (4.30-5.90) m/uL Hgb 8.6 L (13.0-17.5) gm/dL Hct 28.4 L (39.0-53.0) % MCV 132.9 H (80.0-100.0) fL MCH 40.0 H (25.0-35.0) pg MCHC 30.1 L (31.0-37.0) g/dL RDW 20.1 H (11.5-15.5) % Plt Count 8 L* D (150-450) k/uL Lymphocytes # 0.2 L (1.0-4.8) k/uL Macrocytosis Marked A ABG pH 7.52 H (7.35-7.45) ABG pCO2 28 L (35-45) mmHg ABG O2 Saturation 97.2 H (94-97) % Sodium 146 H (137-145) mmol/L Chloride 109 H (98-107) mmol/L Carbon Dioxide 12 L (22-30) mmol/L BUN 126 H* (9-20) mg/dL Creatinine 4.60 H (0.66-1.25) mg/dL Glucose 155 H (74-99) mg/dL Calcium 7.3 L (8.4-10.2) mg/dL 07/06/19 Range/Units 05:33 RBC (4.30-5.90) m/uL Hgb (13.0-17.5) gm/dL Hct (39.0-53.0) % MCV (80.0-100.0) fL MCH (25.0-35.0) pg MCHC (31.0-37.0) g/dL RDW (11.5-15.5) % Plt Count (150-450) k/uL Lymphocytes # (1.0-4.8) k/uL Macrocytosis ABG pH (7.35-7.45) ABG pCO2 (35-45) mmHg ABG O2 Saturation (94-97) % Sodium 147 H (137-145) mmol/L Chloride 109 H (98-107) mmol/L Carbon Dioxide 16 L (22-30) mmol/L BUN 130 H* (9-20) mg/dL Creatinine 4.02 H (0.66-1.25) mg/dL Glucose 189 H (74-99) mg/dL Calcium 6.6 L (8.4-10.2) mg/dL Microbiology - Last 24 Hours (Table) 07/04/19 00:25 Urine Culture - Final Urine,Clean Catch Escherichia coli 07/03/19 22:23 Blood Culture Gram Stain - Final Blood Blood Culture - Final Escherichia coli Assessment and Plan Plan: E. coli bacteremia, source UTI Left-sided hydronephrosis Acute metabolic encephalopathy Acute hypoxic respiratory failure Acute COPD exacerbation Community acquired pneumonia, high suspicion for acute covid 19 infection [facility] Hypernatremia Metabolic acidosis secondary to acute kidney injury with respiratory compensation/alkalosis Acute on chronic anemia Elevated troponin A-fib with RVR now in sinus rhythm Acute CHF exacerbation, systolic Hx of thrombocytosis now with thromocytopenia Hx of ETOH abuse, last drink in march. Plan Cardiology advising to continue Cardizem and amiodarone drips, he is currently in SR. Bronchodilators Steroids Continue Zosyn, ID following, will discuss switching to rochepin as E.coli is sensitive to it. Await second Covid 19 testing, first one was negative Given lasix 80mg IV today by nephro Continue bicarb gtt, change to 75 mEq in 1L D5W to provide hypotonic solution to treat hypernatremia Monitor CBC and electrolytes. Supportive care in the intensive care unit Seizure precautions Benzos per CIWA scale when necessary Thiamine CODE STATUS: Full code DVT prophylaxis: Anticoagulation is contraindicated due to low platelet count. Anticipated discharge place: Pending clinical course
[2019-07-06] MEDS: PANTOPRAZOLE 40 MG/10 ML VIAL IV SCH (10:09)
[2019-07-06] MEDS: PIPERACILLIN-TAZOBACTAM 3.375 GM in SODIUM CHLORIDE 0.9% 100 ML IVPB SCH ×2 (10:09→20:59)
[2019-07-06] MEDS: AMIODARONE 300 MG in DEXTROSE 5% IN WATER 250 ML IV SCH ×4 (10:31→22:26)
--- NOTE | 2019-07-06 11:01 | PN ---
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 He presented to the emergency department on July 03 with mental status changes and apparently not acting appropriately according to his daughter, Prema. He was found to have E coli bacteremia and probable E coli urinary tract infection. He did test negative for COVID-19 infection. The patient was placed on BiPAP at 15 and 5 at 40%. He remains there currently. The patient is currently on amiodarone at 0.5 mg/minute and Cardizem drip of 5 mg an hour for atrial fibrillation and RVR. The patient was on a D5W IV with 3 amps of bicarb at 75 mL an hour and has been turned down to D5W with 1.5 amps of bicarb at 100 mL an hour. His chest x-ray shows evidence of CHF. We will ask for a PICC line or midline today. His blood gases on 40% show pO2 of 93, pCO2 of 28, and pH of 7.52. This is consistent with a respiratory alkalosis. Apparently, according to family members, the patient is a FULL CODE at this point, and his daughter, Prema, who is making medical decisions for the patient would agree to intubation and even dialysis. Current vital signs are reviewed. Temperature 97.5, heart rate 71, respiratory rate 25, blood pressure 113/68 mean 83, saturations are 97%. Appears in no acute distress. Currently on BiPAP. Very lethargic and sleepy. HEENT: Examination is grossly unremarkable. BiPAP mask in place. NECK: Supple. Full range of motion. No adenopathy. Neck veins are flat. CARDIOVASCULAR: Examination reveals regular rhythm and rate. Heart rate mid 70s. S1, S2 normal. No distinct murmur. LUNGS: Reveal coarse rhonchi. Breath sounds equal. There are some bibasilar crackles. ABDOMEN: Soft. No bowel sounds. EXTREMITIES: Intact. The patient does have acrocyanosis. There is also some nonhealing wounds and ulcers on the left foot. Skin shows multiple areas of ecchymoses. NEUROLOGIC: Examination is difficult to assess at this time. LABS: Reviewed. White count 7.3, hemoglobin 8.6, hematocrit 28.4, platelet count 8000. Blood gases are noted. Sodium 147, potassium 4.2, chloride 109, CO2 is 16, anion gap is 22, BUN and creatinine 130 and 4.02. Troponin was 0.125. The rest of his labs are reviewed. Microbiology showing E coli both in the urine and in the blood. Chest x-ray from 07/05 shows pulmonary vascular congestion and/or bilateral pneumonia. MEDICATIONS: Reviewed. He is currently on IV amiodarone to be switched to oral amiodarone, Pulmicort Respules, Cardizem drip of 5 mg an hour, formoterol, Lasix p.r.n., DuoNeb, Ativan, Solu-Medrol, morphine sulfate, Narcan, Protonix, Zosyn, bicarbonate drip, and thiamine. ASSESSMENT: 1. Hypoxemic respiratory failure requiring BiPAP therapy and possible intubation with mechanical ventilation. 2. Mental status changes, likely related to underlying septic encephalopathy. 3. Escherichia coli bacteremia and E coli urinary tract infection/urosepsis. 4. Congestive heart failure. 5. Chronic obstructive pulmonary disease exacerbation. 6. History of chronic alcohol and tobacco abuse. 7. History of hyperlipidemia. 8. Hypertension. 9. Degenerative joint disease. 10.History of essential/idiopathic thrombocytosis. 11.Development of atrial fibrillation with RVR. 12.Anion gap and non-anion gap metabolic acidosis. PLAN: The patient's overall prognosis is very poor. Apparently, the daughter who is making medical decisions for the patient has agreed to dialysis if necessary and even intubation with mechanical ventilation. I tried to dissuade her from that decision. Nonetheless, if that is what she wants, will comply with that. His overall prognosis remains poor. He has significant peripheral vascular occlusive disease and is being followed by Dr. Ayala for that. Additional recommendations and suggestions are forthcoming. Prognosis is poor. He does have E coli both in the urine and blood. He is on good antibiotics. Will continue to follow. CRITICAL CARE TIME: 32 minutes. MMODL / IJN: [id number] /
[2019-07-06] MEDS: THIAMINE 100 MG/ML 2 ML VIAL IVP SCH (12:15)
--- NOTE | 2019-07-06 12:34 | CDI ---
Documentation Clarification Form Date: 07/06/2019 12:07:00 PM From: Alena Breen RN CCDS Admit Date: 07/04/2019 02:43:00 AM Patient Name: Tyshawn Boudreaux Visit Number: [id number] Discharge Date: ATTENTION: The Clinical Documentation Specialists (CDI) and [facility] Coding Staff appreciate your assistance in clarifying documentation. Please respond to the clarification below the line at the bottom and electronically sign. The CDI & [facility] Coding staff will review the response and follow-up if needed. Please note: Queries are made part of the Legal Health Record. If you have any questions, please contact the author of this message via ITS. Dr. Chandler Atkinson The COVID-19 test obtained on 07/03 and was reported as Negative on 07/03. Per your progress note 07/05 Community acquired pneumonia, high suspicion for acute COVID 19 infection. Await second COVID 19 testing, first one was negative. 73 -year-old male presents to the ED for altered mental status, weakness and lethargic. Medical history of HTN, HLD and Alcohol abuse. Clinical Indicators Patient reported shortness of breath, cough and chest pain. 07/02 VS in ED Triage: T: 99.2, P: 109, R: 30, Sat 84% on room air. 07/02 Labs Wbc 4.8, Lymphocytes 0.10, D-Dimer 22.20, Procalcitonin >100.00, LDH 1009, 07/05 CXR pulmonary vascular congestion and /or bilateral pneumonia Pulmonary Progress note 07/05 He did test negative for COVID 19 infection. 07/03 Zithromax Ivpb Daily D/c 07/04 07/03 Piperacillin Iv q 12 hr, In order to capture the severity of condition, please clarify the COVID-19 status: False negative, treating for COVID-19 infection COVID-19 ruled out Other, please specify (Last Revision: November 2016) [facility]-19 ruled out MTDD
[2019-07-06 14:35] LABS: Magnesium 2.5 mg/dL (1.6-2.3); Phosphorus 6.9 mg/dL (2.5-4.5)
[2019-07-06] MEDS ORDERED: MVI, ADULT NO.4 WITH VIT K 10 ML, TRACE (CONC-1ML/DOSE) 1 ML, PARENTERAL ELECTROLYTES 2... IV SCH ×4 (15:00)
[2019-07-06] MEDS ORDERED: FAT EMULSION 20% 250 ML in EMPTY BAG 1 BAG IV SCH (15:00)
[2019-07-06] MEDS ORDERED: DEXTROSE 50% SYRINGE 50 ML IVP STA (17:53)
[2019-07-06] MEDS ORDERED: DEXTROSE 50% SYRINGE 50 ML IVP ONE (17:55)
[2019-07-06 18:01] LABS: Calcium 6.6 mg/dL (8.4-10.2); Potassium 3.7 mmol/L (3.5-5.1)
[2019-07-06 18:13] LABS: Glucose,Whole Blood 32 mg/dL (75-99)
[2019-07-06 18:13] LABS: Glucose,Whole Blood 358 mg/dL (75-99)
[2019-07-06 18:13] LABS: Glucose,Whole Blood <20 mg/dL (75-99)
[2019-07-06 18:13] LABS: Glucose,Whole Blood <20 mg/dL (75-99)
[2019-07-06] MEDS: POTASSIUM CHLORIDE 10 MEQ in WATER FOR INJECTION 1 100ML.BAG IVPB SCH ×2 (20:58→22:34)
[2019-07-06] MEDS: INSULIN ASPART (NovoLOG) 100 UNIT/ML VIAL SQ SCH (20:59)
--- NOTE | 2019-07-06 23:16 | PN ---
PROGRESS NOTE DATE OF SERVICE: 07/06/2019 REASON FOR FOLLOWUP: UTI with bacteremia, complicated, and possible aspiration pneumonia. INTERVAL HISTORY: The patient is currently afebrile. The patient is hemodynamically stable, not on any pressor support. The patient is still requiring BiPAP. He remains lethargic and is unable to provide any history. No vomiting or diarrhea has been reported by the nursing staff. PHYSICAL EXAMINATION: Blood pressure is 113/66, pulse of 73, temperature 98.2. He is 97% on BiPAP. General description is an elderly male lying in bed in no distress. RESPIRATORY SYSTEM: Unlabored breathing with decreased breath sounds at the base. No wheeze. HEART: S1, S2. Regular rate and rhythm. ABDOMEN: Soft. No tenderness. LABS: Hemoglobin 8.6, white count 7.3, BUN of 129, creatinine 3.60. Blood and urine with E coli. DIAGNOSTIC IMPRESSION AND PLAN: 1. Patient with Escherichia coli bacteremia. Source is complicated urinary tract infection and also a concern for possible aspiration pneumonitis. We will keep the patient on Zosyn . 2. Coverage that we need for an aspiration pneumonia and monitor his clinical course closely. Plan of care was discussed with the attending physician. BERNARDL / RONEYN: [id number] /
[2019-07-07] MEDS ORDERED: INSULIN ASPART (NovoLOG) 100 UNIT/ML VIAL SQ SCH
[2019-07-07] MEDS: THIAMINE 100 MG/ML 2 ML VIAL IVP SCH ×2 (00:55→11:59)
[2019-07-07] MEDS: methylPREDNISolone SOD SUCCI 40 MG/ML 1 ML VIAL IV SCH ×4 (00:55→17:20)
[2019-07-07] MEDS: INSULIN ASPART (NovoLOG) 100 UNIT/ML VIAL SQ SCH ×4 (00:56→18:21)
[2019-07-07] MEDS: DILTIAZEM 125 MG in SODIUM CHLORIDE 0.9% 100 ML IV SCH ×2 (04:24→21:07)
[2019-07-07 05:42] LABS: Anisocytosis Slight; Basophils % (A) 0 %; Eosinophils % (A) 0 %; HCT 31.6 % (39.0-53.0); HGB 9.1 gm/dL (13.0-17.5); Hypochromasia Marked; Lymphocytes # (A) 0.2 k/uL (1.0-4.8); Lymphocytes % (A) 4 %; MCH 39.3 pg (25.0-35.0); MCHC 28.8 g/dL (31.0-37.0); MCV 136.6 fL (80.0-100.0); Macrocytosis Marked; Mean Platelet Volume 11.9; Monocytes # (A) 0.1 k/uL (0-1.0); Monocytes % (A) 2 %; Neutrophils # (A) 6.2 k/uL (1.3-7.7); Neutrophils % (A) 94 %; RBC 2.31 m/uL (4.30-5.90); RDW 19.6 % (11.5-15.5); WBC 6.6 k/uL (3.8-10.6)
[2019-07-07 06:02] LABS: Calcium 7.2 mg/dL (8.4-10.2); Magnesium 2.4 mg/dL (1.6-2.3); Phosphorus 7.1 mg/dL (2.5-4.5); Potassium 4.2 mmol/L (3.5-5.1)
[2019-07-07 06:04] LABS: Platelet Count 20 k/uL (150-450)
[2019-07-07] MEDS: BUDESONIDE 1 MG/2 ML NEBU INHALATION SCH ×2 (07:33→19:57)
[2019-07-07] MEDS: FORMOTEROL FUMARATE 20 MCG/2 ML NEBU INHALATION SCH ×2 (07:33→19:57)
[2019-07-07] MEDS: IPRATROPIUM-ALBUTEROL 3 ML NEB INHALATION SCH ×4 (07:33→19:57)
--- NOTE | 2019-07-07 07:38 | XR ---
EXAMINATION TYPE: XR chest 1V portable DATE OF EXAM: 07/07/2019 Comparison: 06/28/2019 Clinical History: 73-year-old male shortness of breath Findings: Heart mildly enlarged. Increased interstitial density persists but the patchy opacities are improving . No sizable effusion. Impression: Redemonstrated cardiomegaly. Improving bilateral patchy airspace disease with some residual interstit ial infiltrates.
[2019-07-07 08:04] LABS: Poikilocytosis (M) Present; Toxic Vacuolation Present
[2019-07-07] MEDS: DEXTROSE 5% IN WATER 1,000 ML with SODIUM BICARB (1 MEQ/ML) 75 ML IV SCH ×2 (08:19→20:40)
[2019-07-07] MEDS: AMIODARONE 300 MG in DEXTROSE 5% IN WATER 250 ML IV SCH ×4 (08:19→18:20)
--- NOTE | 2019-07-07 08:43 | P.PN ---
Subjective Progress Note Date: 07/07/19 Principal diagnosis: paroxysmal atrial fibrillation This is a 73-year-old gentleman with extensive past medical history consistent for thrombocytopenia, chronic kidney disease, as well as multiple comorbid conditions, was brought to the emergency room by his daughter because the patient was not feeling well. Currently the patient is lethargic and the history was taken from the chart. Also the history was taken from the nurse at bedside. The patient was brought to the emergency room by his daughter. Apparently he fell at home several times. He was drinking alcohol excessively. No indication of any symptoms of chest pain or chest discomfort or shortness of breath. No indication of any history of coronary artery disease or congestive heart failure or cardiac arrhythmia. When the patient was seen in the emergency department he was quite hypotensive and required IV fluid excessively. Also he was found to be in acute renal failure. Nephrology is on the case. The patient was seen today, July 062019. He has been maintaining normal sinus mechanism and currently he is on amiodarone IV as well as Cardizem IV. He cannot swallow any pills at this point. Having said that I would continue the patient on the amiodarone as well as Cardizem IV. Hold any oral anticoagulation or IV anticoagulation in view of the severe thrombocytopenia. Overall the prognosis is very poor. Please note that the echocardiogram showed severe cardiomyopathy. Objective - Vital Signs Vital signs: Vital Signs Temp 98.2 F 07/07/19 08:00 Pulse 77 07/07/19 08:00 Resp 25 H 07/07/19 08:00 BP 110/64 07/07/19 08:00 Pulse Ox 97 07/07/19 08:00 Intake & Output 07/06/19 07/07/19 07/07/19 18:59 06:59 18:59 Intake Total 1474 1620.667 447.083 Output Total 1690 1675 125 Balance -216 -54.333 322.083 Weight 85.9 kg 84.2 kg Intake: IV 1025 1500 200 Dextrose 5% in Water 1, 800 1200 200 000 ml @ 100 mls/hr IV . [id number] RENE with Sodium Bicarb (1 Meq/ml) 75 ml Rx#:[id number] Dextrose 5% in Water 1, 225 000 ml @ 75 mls/hr IV . [id number] RENE with Sodium Bicarb (1 Meq/ml) 150 ml Rx#:[id number] Piperacillin-Tazobactam 3 100 .375 gm In Sodium Chloride 0.9% 100 ml @ 25 mls/hr IVPB Q12HR [facility] Rx #:[id number] Potassium Chloride 10 meq 200 In Water For Injection 1 100ml.bag @ 100 mls/hr IVPB Q1H [facility] Rx#: [id number] Intake, IV Titration 250 120.667 247.083 Amount Amiodarone 300 mg In 250 Dextrose 5% in Water 250 ml @ 0.5 MG/MIN 25 mls/hr IV .Q10H [facility] Rx#: [id number] Amiodarone 300 mg In 247.083 Dextrose 5% in Water 250 ml @ 0.5 MG/MIN 25 mls/hr IV .Q10H [facility] Rx#: [id number] Diltiazem 125 mg In 120.667 Sodium Chloride 0.9% 100 ml @ 10 MG/HR 10 mls/hr IV .[id number] [facility] Rx#: [id number] Blood Product 199 Platelet Irr Pheresis 3 199 Acda Unit [id number] Output: Urine 1690 1675 125 Other: Voiding Method Indwelling Catheter Indwelling Catheter - Constitutional General appearance: Present: no acute distress - Respiratory Respiratory: bilateral: diminished - Cardiovascular Rhythm: regular Heart sounds: normal: S1, S2 - Labs CBC & Chem 7: 07/07/19 04:56 07/07/19 04:56 Labs: Abnormal Lab Results - Last 24 Hours (Table) 07/06/19 07/06/19 07/06/19 Range/Units 05:33 17:44 17:53 RBC (4.30-5.90) m/uL Hgb (13.0-17.5) gm/dL Hct (39.0-53.0) % MCV (80.0-100.0) fL MCH (25.0-35.0) pg MCHC (31.0-37.0) g/dL RDW (11.5-15.5) % Plt Count (150-450) k/uL Lymphocytes # (1.0-4.8) k/uL Macrocytosis Sodium (137-145) mmol/L Carbon Dioxide (22-30) mmol/L BUN 129 H* (9-20) mg/dL Creatinine 3.60 H (0.66-1.25) mg/dL Glucose 284 H (74-99) mg/dL POC Glucose (mg/dL) 32 L (75-99) mg/dL Calcium 6.6 L (8.4-10.2) mg/dL Phosphorus 6.9 H (2.5-4.5) mg/dL Magnesium 2.5 H (1.6-2.3) mg/dL Triglycerides 258 H (<150) mg/dL 07/06/19 07/06/19 07/06/19 Range/Units 17:54 17:57 18:00 RBC (4.30-5.90) m/uL Hgb (13.0-17.5) gm/dL Hct (39.0-53.0) % MCV (80.0-100.0) fL MCH (25.0-35.0) pg MCHC (31.0-37.0) g/dL RDW (11.5-15.5) % Plt Count (150-450) k/uL Lymphocytes # (1.0-4.8) k/uL Macrocytosis Sodium (137-145) mmol/L Carbon Dioxide (22-30) mmol/L BUN (9-20) mg/dL Creatinine (0.66-1.25) mg/dL Glucose (74-99) mg/dL POC Glucose (mg/dL) <20 L <20 L 358 H (75-99) mg/dL Calcium (8.4-10.2) mg/dL Phosphorus (2.5-4.5) mg/dL Magnesium (1.6-2.3) mg/dL Triglycerides (<150) mg/dL 07/07/19 07/07/19 Range/Units 04:56 04:56 RBC 2.31 L (4.30-5.90) m/uL Hgb 9.1 L (13.0-17.5) gm/dL Hct 31.6 L (39.0-53.0) % MCV 136.6 H (80.0-100.0) fL MCH 39.3 H (25.0-35.0) pg MCHC 28.8 L (31.0-37.0) g/dL RDW 19.6 H (11.5-15.5) % Plt Count 20 L D (150-450) k/uL Lymphocytes # 0.2 L (1.0-4.8) k/uL Macrocytosis Marked A Sodium 146 H (137-145) mmol/L Carbon Dioxide 17 L (22-30) mmol/L BUN 126 H* (9-20) mg/dL Creatinine 4.15 H (0.66-1.25) mg/dL Glucose 103 H (74-99) mg/dL POC Glucose (mg/dL) (75-99) mg/dL Calcium 7.2 L (8.4-10.2) mg/dL Phosphorus 7.1 H (2.5-4.5) mg/dL Magnesium 2.4 H (1.6-2.3) mg/dL Triglycerides (<150) mg/dL Microbiology - Last 24 Hours (Table) 07/04/19 00:25 Urine Culture - Final Urine,Clean Catch Escherichia coli Assessment and Plan Assessment: assessment Acute renal failure severe thrombocytopenia Paroxysmal atrial fibrillation Respiratory failure Possible pneumonia Plan continue the amiodarone drip as well as Cardizem drip Continue holding any oral anticoagulation or IV anticoagulation at this point The echo was reviewed and showed severe cardiomyopathy Follow-up with the patient
--- NOTE | 2019-07-07 09:30 | P.PN ---
Subjective Progress Note Date: 07/07/19 Patient seen and examined. more responsive today. opening eyes to command. remained on bipap continuously. desaturation upon trial wean. Objective - Vital Signs Vital signs: Vital Signs Temp 98.2 F 07/07/19 08:00 Pulse 77 07/07/19 08:00 Resp 25 H 07/07/19 08:00 BP 110/64 07/07/19 08:00 Pulse Ox 97 07/07/19 08:00 Intake & Output 07/06/19 07/07/19 07/07/19 18:59 06:59 18:59 Intake Total 1474 1620.667 447.083 Output Total 1690 1675 125 Balance -216 -54.333 322.083 Weight 85.9 kg 84.2 kg Intake: IV 1025 1500 200 Dextrose 5% in Water 1, 800 1200 200 000 ml @ 100 mls/hr IV . [id number] [facility] with Sodium Bicarb (1 Meq/ml) 75 ml Rx#:[id number] Dextrose 5% in Water 1, 225 000 ml @ 75 mls/hr IV . [id number] [facility] with Sodium Bicarb (1 Meq/ml) 150 ml Rx#:[id number] Piperacillin-Tazobactam 3 100 .375 gm In Sodium Chloride 0.9% 100 ml @ 25 mls/hr IVPB Q12HR [facility] Rx #:[id number] Potassium Chloride 10 meq 200 In Water For Injection 1 100ml.bag @ 100 mls/hr IVPB Q1H [facility] Rx#: [id number] Intake, IV Titration 250 120.667 247.083 Amount Amiodarone 300 mg In 250 Dextrose 5% in Water 250 ml @ 0.5 MG/MIN 25 mls/hr IV .Q10H [facility] Rx#: [id number] Amiodarone 300 mg In 247.083 Dextrose 5% in Water 250 ml @ 0.5 MG/MIN 25 mls/hr IV .Q10H [facility] Rx#: [id number] Diltiazem 125 mg In 120.667 Sodium Chloride 0.9% 100 ml @ 10 MG/HR 10 mls/hr IV .[id number] [facility] Rx#: [id number] Blood Product 199 Platelet Irr Pheresis 3 199 Acda Unit [id number] Output: Urine 1690 1675 125 Other: Voiding Method Indwelling Catheter Indwelling Catheter - Exam Gen. is a ill-appearing male wearing a BiPAP. Heart is regular at this time. Lungs decreased breath sounds, on BiPap. Abdomen soft. Bilateral lower extremities are dry. Dry gangrene as previous Delayed capillary refill. - Labs CBC & Chem 7: 07/07/19 04:56 07/07/19 04:56 Labs: Abnormal Lab Results - Last 24 Hours (Table) 07/06/19 07/06/19 07/06/19 Range/Units 05:33 17:44 17:53 RBC (4.30-5.90) m/uL Hgb (13.0-17.5) gm/dL Hct (39.0-53.0) % MCV (80.0-100.0) fL MCH (25.0-35.0) pg MCHC (31.0-37.0) g/dL RDW (11.5-15.5) % Plt Count (150-450) k/uL Lymphocytes # (1.0-4.8) k/uL Macrocytosis Sodium (137-145) mmol/L Carbon Dioxide (22-30) mmol/L BUN 129 H* (9-20) mg/dL Creatinine 3.60 H (0.66-1.25) mg/dL Glucose 284 H (74-99) mg/dL POC Glucose (mg/dL) 32 L (75-99) mg/dL Calcium 6.6 L (8.4-10.2) mg/dL Phosphorus 6.9 H (2.5-4.5) mg/dL Magnesium 2.5 H (1.6-2.3) mg/dL Triglycerides 258 H (<150) mg/dL 07/06/19 07/06/19 07/06/19 Range/Units 17:54 17:57 18:00 RBC (4.30-5.90) m/uL Hgb (13.0-17.5) gm/dL Hct (39.0-53.0) % MCV (80.0-100.0) fL MCH (25.0-35.0) pg MCHC (31.0-37.0) g/dL RDW (11.5-15.5) % Plt Count (150-450) k/uL Lymphocytes # (1.0-4.8) k/uL Macrocytosis Sodium (137-145) mmol/L Carbon Dioxide (22-30) mmol/L BUN (9-20) mg/dL Creatinine (0.66-1.25) mg/dL Glucose (74-99) mg/dL POC Glucose (mg/dL) <20 L <20 L 358 H (75-99) mg/dL Calcium (8.4-10.2) mg/dL Phosphorus (2.5-4.5) mg/dL Magnesium (1.6-2.3) mg/dL Triglycerides (<150) mg/dL 07/07/19 07/07/19 Range/Units 04:56 04:56 RBC 2.31 L (4.30-5.90) m/uL Hgb 9.1 L (13.0-17.5) gm/dL Hct 31.6 L (39.0-53.0) % MCV 136.6 H (80.0-100.0) fL MCH 39.3 H (25.0-35.0) pg MCHC 28.8 L (31.0-37.0) g/dL RDW 19.6 H (11.5-15.5) % Plt Count 20 L D (150-450) k/uL Lymphocytes # 0.2 L (1.0-4.8) k/uL Macrocytosis Marked A Sodium 146 H (137-145) mmol/L Carbon Dioxide 17 L (22-30) mmol/L BUN 126 H* (9-20) mg/dL Creatinine 4.15 H (0.66-1.25) mg/dL Glucose 103 H (74-99) mg/dL POC Glucose (mg/dL) (75-99) mg/dL Calcium 7.2 L (8.4-10.2) mg/dL Phosphorus 7.1 H (2.5-4.5) mg/dL Magnesium 2.4 H (1.6-2.3) mg/dL Triglycerides (<150) mg/dL Microbiology - Last 24 Hours (Table) 07/04/19 00:25 Urine Culture - Final Urine,Clean Catch Escherichia coli Assessment and Plan Assessment: #1 bilateral lower extremity toe ulcerations, [place] 5 peripheral arterial disease #2 acute metabolic encephalopathy #3 acute hypoxic respiratory failure, on BiPAP #4 metabolic acidosis with acute kidney injury - stable 5 acute kidney injury #6 history of abdominal aortic aneurysm status post repair #7 history of alcohol abuse and withdrawal #8 chronic anemia #9 thrombocytopenia Plan: remains essentially stable at this time. No significant changes in renal functions. remains thrombocytopenic. COVID negative. Poor prognosis overall. Midline planned for later today.
[2019-07-07] MEDS: PANTOPRAZOLE 40 MG/10 ML VIAL IV SCH (09:55)
[2019-07-07] MEDS: PIPERACILLIN-TAZOBACTAM 3.375 GM in SODIUM CHLORIDE 0.9% 100 ML IVPB SCH ×2 (09:55→20:41)
--- NOTE | 2019-07-07 10:20 | PN ---
PROGRESS NOTE PULMONARY/CRITICAL CARE PROGRESS NOTE: DATE OF SERVICE: 07/07/2019 CRITICAL CARE TIME: 31 minutes. 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 He presented to the emergency department on July 03 with mental status changes and apparently not acting appropriately according to his daughter. He was subsequently found to have E coli bacteremia and E coli urinary tract infection. He is being treated for both. In addition, the patient has hypoxemic respiratory failure and he is currently BiPAP dependent with BiPAP settings of 15/5 at 40%. Any time he comes off BiPAP, the patient desaturates down into the low 80s. His COVID testing was negative. Currently, he also does have atrial fibrillation with RVR. For that, he is on amiodarone at 0.5 mg/minute and Cardizem at 5 mg an hour. In addition, he is getting D5W 1.5 amps of sodium bicarb at 100 mL an hour for his renal failure. In addition to all this, the patient has severe peripheral artery disease. Overall, the patient's prognosis is not good and I had a long discussion on his condition today with his daughter, Prema. I told Prema that since I have been seeing him beginning on Wednesday, in my opinion, his situation has remained relatively status quo and/or gotten slightly worse. Again, his respiratory status is poor and when he comes off BiPAP, he desaturates significantly. Chest x-ray shows diffuse bilateral infiltrates. I did talk to his daughter about the possibility of just electively intubating him and with the idea that he would proceed to have a tracheostomy and PEG tube shortly thereafter. At that point, the patient could be transferred to a long-term acute care facility if he was to be on the ventilator for a long period of time after the surgical tracheostomy where he might be able to be weaned. Anyway, she was going to give that some thought. He is currently still a FULL CODE, though. She would agree to intubation and hemodialysis should it come to that. Current vital signs are reviewed. Temperature is 98.2, heart rate 77, respiratory rate between 25 and 30 breaths per minute, blood pressure 110/64 mean 79, saturations are 97% on 40% BiPAP. Appears in no acute distress, although he is somewhat tachypneic. He responds poorly to verbal stimuli. HEENT: Examination is grossly unremarkable. BiPAP mask in place. NECK: Supple. Full range of motion. CARDIOVASCULAR: Examination reveals a regular rhythm and rate. Heart rate is 77. Still in atrial fibrillation. No distinct murmur. Heart sounds are distant. LUNGS: Reveal diffuse coarse bilateral rhonchi. No wheezes. No crackles. ABDOMEN: Soft. No bowel sounds are noted. EXTREMITIES: Reveal significant acrocyanosis. He has also got some nonhealing ulcers and lesions on his left foot. He has got no pulses in his left foot. SKIN: Reveals multiple areas of ecchymoses. NEUROLOGIC: Examination is difficult to assess. He is very somnolent and lethargic. He does respond but does not say anything purposeful. LAB: Data is reviewed. White count 6.6, hemoglobin 9.1, hematocrit 31.6, platelet count 20,000. He did receive platelets yesterday in anticipation of a midline catheter placement. Sodium 146, potassium is 4.2, chloride is 103, CO2 is 17, anion gap is 26. BUN and creatinine is 126 and 4.15. Microbiology shows urine positive for E coli and blood and urine. Chest x-ray shows diffuse bilateral infiltrates. There is cardiomegaly. Medications are reviewed. ASSESSMENT: 1. Hypoxemic respiratory failure requiring BiPAP therapy and possible intubation with mechanical ventilation. I have held off intubating the patient, hoping that he would turn around. He has not made much progress at all and in fact when his BiPAP is changed over to high-flow nasal cannula, saturations dropped down into the low 80s. 2. Mental status changes, likely related to underlying septic encephalopathy. 3. Escherichia coli bacteremia and Escherichia coli urinary tract infection/urosepsis. 4. Congestive heart failure. 5. Chronic obstructive pulmonary disease exacerbation. 6. History of chronic alcohol and tobacco abuse. 7. Atrial fibrillation with rapid ventricular response, currently on IV Cardizem and IV amiodarone. 8. Hypertension by history. 9. History of hyperlipidemia. 10.Degenerative joint disease. 11.History of idiopathic thrombocytosis. 12.Anion gap metabolic acidosis. 13.General medical debility. 14.Severe peripheral artery disease. PLAN: The patient's overall prognosis remains very guarded. I did have a long conversation with Prema, his daughter today. In my opinion since Wednesday when I started seeing Dr. Boudreaux, his situation really has not improved at all. In fact, in my opinion, his condition has worsened. We talked a little bit about the possibility of elective intubation with the idea that he would transition to tracheostomy and PEG tube where he might be able to be treated and improved at a long-term acute care facility. She will give that some thought. Additional recommendations and suggestions are forthcoming. Prognosis is very guarded in my opinion. Again when he comes off the BiPAP, his saturations drop significantly. The patient is currently being treated for his E coli infection. Will continue to give him his appropriate antibiotics. No additional recommendations are made. Prognosis again is very guarded. Will continue to follow. CRITICAL CARE TIME: More than 30 minutes. LEE / RONEYN: [id number] /
[2019-07-07] MEDS ORDERED: MVI, ADULT NO.4 WITH VIT K 10 ML, TRACE (CONC-1ML/DOSE) 1 ML, SODIUM ACETATE 30 MEQ, PO... IV ONE ×6 (11:00)
--- NOTE | 2019-07-07 11:37 | P.PN ---
Subjective Progress Note Date: 07/07/19 Principal diagnosis: sob Patient is more awake and responsive today. He was taken off BiPAP this morning but started to desaturate so he was placed back on it. He denied shortness of breath or pain at the moment. No overnight fevers. Objective - Vital Signs Vital signs: Vital Signs Temp 98.2 F 07/07/19 08:00 Pulse 68 07/07/19 11:19 Resp 16 07/07/19 11:00 BP 119/67 07/07/19 11:00 Pulse Ox 98 07/07/19 11:00 Intake & Output 07/06/19 07/07/19 07/07/19 18:59 06:59 18:59 Intake Total 1474 1620.667 747.083 Output Total 1690 1675 400 Balance -216 -54.333 347.083 Weight 85.9 kg 84.2 kg 84.2 kg Intake: IV 1025 1500 500 Dextrose 5% in Water 1, 800 1200 500 000 ml @ 100 mls/hr IV . [id number] [facility] with Sodium Bicarb (1 Meq/ml) 75 ml Rx#:[id number] Dextrose 5% in Water 1, 225 000 ml @ 75 mls/hr IV . [id number] [facility] with Sodium Bicarb (1 Meq/ml) 150 ml Rx#:[id number] Piperacillin-Tazobactam 3 100 .375 gm In Sodium Chloride 0.9% 100 ml @ 25 mls/hr IVPB Q12HR [facility] Rx #:[id number] Potassium Chloride 10 meq 200 In Water For Injection 1 100ml.bag @ 100 mls/hr IVPB Q1H [facility] Rx#: [id number] Intake, IV Titration 250 120.667 247.083 Amount Amiodarone 300 mg In 250 Dextrose 5% in Water 250 ml @ 0.5 MG/MIN 25 mls/hr IV .Q10H [facility] Rx#: [id number] Amiodarone 300 mg In 247.083 Dextrose 5% in Water 250 ml @ 0.5 MG/MIN 25 mls/hr IV .Q10H [facility] Rx#: [id number] Diltiazem 125 mg In 120.667 Sodium Chloride 0.9% 100 ml @ 10 MG/HR 10 mls/hr IV .[id number] [facility] Rx#: [id number] Blood Product 199 Platelet Irr Pheresis 3 199 Acda Unit [id number] Output: Urine 1690 1675 400 Other: Voiding Method Indwelling Catheter Indwelling Catheter Indwelling Catheter - Exam Constitutional: Sedated. On bipap Eyes:Anicteric sclerae, moist conjunctiva, no lid-lag, PERRLA, ENMT: Oropharynx clear, no erythema, exudates Neck: Supple, no masses, or JVD, No carotid bruits, No thyromegaly Lungs: Diminished breath sounds bilaterally. Labored breathing with mild accessory muscle use Cardiovascular: Tachycardic, regular, No murmurs, gallops, or rubs, No peripheral edema Abdominal: Distended, firm, Nontender, no guarding, rebound or rigidity, N ormoactive bowel sounds, No hepatomegaly, No splenomegaly, No palpable mass Skin: Normal temperature, tone, texture, turgor, no induration, No subcutaneous nodules, No rash, lesions, No ulcers Extremities: No digital cyanosis, No clubbing, Pedal pulses intact and symmetrical, Radial pulses intact and symmetrical, No calf tenderness Neuro: Sedated, moving all extremities. - Labs CBC & Chem 7: 07/07/19 04:56 07/07/19 04:56 Labs: Abnormal Lab Results - Last 24 Hours (Table) 07/06/19 07/06/19 07/06/19 Range/Units 05:33 17:44 17:53 RBC (4.30-5.90) m/uL Hgb (13.0-17.5) gm/dL Hct (39.0-53.0) % MCV (80.0-100.0) fL MCH (25.0-35.0) pg MCHC (31.0-37.0) g/dL RDW (11.5-15.5) % Plt Count (150-450) k/uL Lymphocytes # (1.0-4.8) k/uL Macrocytosis Sodium (137-145) mmol/L Carbon Dioxide (22-30) mmol/L BUN 129 H* (9-20) mg/dL Creatinine 3.60 H (0.66-1.25) mg/dL Glucose 284 H (74-99) mg/dL POC Glucose (mg/dL) 32 L (75-99) mg/dL Calcium 6.6 L (8.4-10.2) mg/dL Phosphorus 6.9 H (2.5-4.5) mg/dL Magnesium 2.5 H (1.6-2.3) mg/dL Triglycerides 258 H (<150) mg/dL 07/06/19 07/06/19 07/06/19 Range/Units 17:54 17:57 18:00 RBC (4.30-5.90) m/uL Hgb (13.0-17.5) gm/dL Hct (39.0-53.0) % MCV (80.0-100.0) fL MCH (25.0-35.0) pg MCHC (31.0-37.0) g/dL RDW (11.5-15.5) % Plt Count (150-450) k/uL Lymphocytes # (1.0-4.8) k/uL Macrocytosis Sodium (137-145) mmol/L Carbon Dioxide (22-30) mmol/L BUN (9-20) mg/dL Creatinine (0.66-1.25) mg/dL Glucose (74-99) mg/dL POC Glucose (mg/dL) <20 L <20 L 358 H (75-99) mg/dL Calcium (8.4-10.2) mg/dL Phosphorus (2.5-4.5) mg/dL Magnesium (1.6-2.3) mg/dL Triglycerides (<150) mg/dL 07/07/19 07/07/19 Range/Units 04:56 04:56 RBC 2.31 L (4.30-5.90) m/uL Hgb 9.1 L (13.0-17.5) gm/dL Hct 31.6 L (39.0-53.0) % MCV 136.6 H (80.0-100.0) fL MCH 39.3 H (25.0-35.0) pg MCHC 28.8 L (31.0-37.0) g/dL RDW 19.6 H (11.5-15.5) % Plt Count 20 L D (150-450) k/uL Lymphocytes # 0.2 L (1.0-4.8) k/uL Macrocytosis Marked A Sodium 146 H (137-145) mmol/L Carbon Dioxide 17 L (22-30) mmol/L BUN 126 H* (9-20) mg/dL Creatinine 4.15 H (0.66-1.25) mg/dL Glucose 103 H (74-99) mg/dL POC Glucose (mg/dL) (75-99) mg/dL Calcium 7.2 L (8.4-10.2) mg/dL Phosphorus 7.1 H (2.5-4.5) mg/dL Magnesium 2.4 H (1.6-2.3) mg/dL Triglycerides (<150) mg/dL Microbiology - Last 24 Hours (Table) 07/04/19 00:25 Urine Culture - Final Urine,Clean Catch Escherichia coli Assessment and Plan Plan: E. coli bacteremia, source UTI causing severe sepsis Left-sided hydronephrosis Acute metabolic encephalopathy Acute hypoxic respiratory failure Acute COPD exacerbation Acute on chronic systolic congestive heart failure exacerbation Community acquired pneumonia, high suspicion for acute covid 19 infection [facility] Hypernatremia Metabolic acidosis secondary to acute kidney injury with respiratory compensation/alkalosis Acute on chronic anemia Elevated troponin A-fib with RVR now in sinus rhythm Hx of thrombocytosis now with thromocytopenia Hx of ETOH abuse, last drink in march. Plan Cardiology advising to continue Cardizem and amiodarone drips, he is currently in SR. Bronchodilators Steroids Continue Zosyn Given lasix 80mg IV on 07/05 Continue bicarb gtt, 75 mEq in 1L D5W to provide hypotonic solution to treat hypernatremia Monitor CBC and electrolytes. Supportive care in the intensive care unit Seizure precautions Benzos per CIWA scale when necessary Thiamine CODE STATUS: Full code DVT prophylaxis: Anticoagulation is contraindicated due to low platelet count. Anticipated discharge place: Pending clinical course
--- NOTE | 2019-07-07 11:42 | P.PN ---
Subjective Patient is seen in follow-up for acute kidney injury. Renal function a little worse today. He is currently on BiPAP. He is maintained on Cardizem and amiodarone drip for A. fib. Urine output 50-100 mL an hour. Sodium level 146 today. Bicarb level 17. He will be started on PPN today. Vital signs: Blood pressure stable. General: The patient appeared well nourished and normally developed. HEENT: Currently on BiPAP. LUNGS: Lungs are clear to auscultation and percussion. Breath sounds decreased. HEART: Regular rate and rhythm. ABDOMEN: Soft, no distention noted. EXTREMITITES: No edema. Objective - Vital Signs Vital signs: Vital Signs Temp 98.2 F 07/07/19 08:00 Pulse 68 07/07/19 11:19 Resp 16 07/07/19 11:00 BP 119/67 07/07/19 11:00 Pulse Ox 98 07/07/19 11:00 Intake & Output 07/06/19 07/07/19 07/07/19 18:59 06:59 18:59 Intake Total 1474 1620.667 747.083 Output Total 1690 1675 400 Balance -216 -54.333 347.083 Weight 85.9 kg 84.2 kg 84.2 kg Intake: IV 1025 1500 500 Dextrose 5% in Water 1, 800 1200 500 000 ml @ 100 mls/hr IV . [id number] [facility]ENE with Sodium Bicarb (1 Meq/ml) 75 ml Rx#:[id number] Dextrose 5% in Water 1, 225 000 ml @ 75 mls/hr IV . [id number] [facility] with Sodium Bicarb (1 Meq/ml) 150 ml Rx#:[id number] Piperacillin-Tazobactam 3 100 .375 gm In Sodium Chloride 0.9% 100 ml @ 25 mls/hr IVPB Q12HR [facility] Rx #:[id number] Potassium Chloride 10 meq 200 In Water For Injection 1 100ml.bag @ 100 mls/hr IVPB Q1H [facility] Rx#: [id number] Intake, IV Titration 250 120.667 247.083 Amount Amiodarone 300 mg In 250 Dextrose 5% in Water 250 ml @ 0.5 MG/MIN 25 mls/hr IV .Q10H [facility] Rx#: [id number] Amiodarone 300 mg In 247.083 Dextrose 5% in Water 250 ml @ 0.5 MG/MIN 25 mls/hr IV .Q10H [facility] Rx#: [id number] Diltiazem 125 mg In 120.667 Sodium Chloride 0.9% 100 ml @ 10 MG/HR 10 mls/hr IV .[id number] [facility] Rx#: [id number] Blood Product 199 Platelet Irr Pheresis 3 199 Acda Unit [id number] Output: Urine 1690 1675 400 Other: Voiding Method Indwelling Catheter Indwelling Catheter Indwelling Catheter - Labs CBC & Chem 7: 07/07/19 04:56 07/07/19 04:56 Labs: Abnormal Lab Results - Last 24 Hours (Table) 07/06/19 07/06/19 07/06/19 Range/Units 05:33 17:44 17:53 RBC (4.30-5.90) m/uL Hgb (13.0-17.5) gm/dL Hct (39.0-53.0) % MCV (80.0-100.0) fL MCH (25.0-35.0) pg MCHC (31.0-37.0) g/dL RDW (11.5-15.5) % Plt Count (150-450) k/uL Lymphocytes # (1.0-4.8) k/uL Macrocytosis Sodium (137-145) mmol/L Carbon Dioxide (22-30) mmol/L BUN 129 H* (9-20) mg/dL Creatinine 3.60 H (0.66-1.25) mg/dL Glucose 284 H (74-99) mg/dL POC Glucose (mg/dL) 32 L (75-99) mg/dL Calcium 6.6 L (8.4-10.2) mg/dL Phosphorus 6.9 H (2.5-4.5) mg/dL Magnesium 2.5 H (1.6-2.3) mg/dL Triglycerides 258 H (<150) mg/dL 07/06/19 07/06/19 07/06/19 Range/Units 17:54 17:57 18:00 RBC (4.30-5.90) m/uL Hgb (13.0-17.5) gm/dL Hct (39.0-53.0) % MCV (80.0-100.0) fL MCH (25.0-35.0) pg MCHC (31.0-37.0) g/dL RDW (11.5-15.5) % Plt Count (150-450) k/uL Lymphocytes # (1.0-4.8) k/uL Macrocytosis Sodium (137-145) mmol/L Carbon Dioxide (22-30) mmol/L BUN (9-20) mg/dL Creatinine (0.66-1.25) mg/dL Glucose (74-99) mg/dL POC Glucose (mg/dL) <20 L <20 L 358 H (75-99) mg/dL Calcium (8.4-10.2) mg/dL Phosphorus (2.5-4.5) mg/dL Magnesium (1.6-2.3) mg/dL Triglycerides (<150) mg/dL 07/07/19 07/07/19 Range/Units 04:56 04:56 RBC 2.31 L (4.30-5.90) m/uL Hgb 9.1 L (13.0-17.5) gm/dL Hct 31.6 L (39.0-53.0) % MCV 136.6 H (80.0-100.0) fL MCH 39.3 H (25.0-35.0) pg MCHC 28.8 L (31.0-37.0) g/dL RDW 19.6 H (11.5-15.5) % Plt Count 20 L D (150-450) k/uL Lymphocytes # 0.2 L (1.0-4.8) k/uL Macrocytosis Marked A Sodium 146 H (137-145) mmol/L Carbon Dioxide 17 L (22-30) mmol/L BUN 126 H* (9-20) mg/dL Creatinine 4.15 H (0.66-1.25) mg/dL Glucose 103 H (74-99) mg/dL POC Glucose (mg/dL) (75-99) mg/dL Calcium 7.2 L (8.4-10.2) mg/dL Phosphorus 7.1 H (2.5-4.5) mg/dL Magnesium 2.4 H (1.6-2.3) mg/dL Triglycerides (<150) mg/dL Microbiology - Last 24 Hours (Table) 07/04/19 00:25 Urine Culture - Final Urine,Clean Catch Escherichia coli Assessment and Plan Plan: Assessment: 1. Acute kidney injury secondary to ATN secondary to hypotension/sepsis. Creatinine peaked at 4.6 this admission and is 4.15 today. No hydronephrosis noted on kidney ultrasound. However the left kidney could not be visualized. M ild left hydronephrosis was noted on CAT scan. Baseline creatinine near 1. 2. Respiratory alkalosis with metabolic acidosis. 3. History of alcohol abuse. 4. Pneumonia maintained on antibiotics. COVID19 PCR negative. 5. Hyperphosphatemia secondary to acute kidney injury. 6. Multiple falls. 7. A. fib with RVR maintained on Cardizem and amiodarone. Cardiology following. 8. E. coli bacteremia maintained on antibiotics. Urine culture also positive for E. coli. 9. Thrombocytopenia. Possibly due to sepsis and alcohol abuse. 10. Hypernatremia secondary to lack of oral water intake. 11. Left-sided hydronephrosis. Seen by urology. No intervention is planned at this time. 12. Acute systolic CHF with ejection fraction of 30-35% with moderate pulmonary hypertension. Plan: Continue D5W with 75 A of bicarb to be run at 100 mL an hour. Status post IV Lasix on July 05. Monitor phosphorus level. Will add phosphate binder once tolerating oral intake. Avoid nephrotoxins. Continue to assess daily for the need for renal placement therapy. Repeat BMP this evening. Discussed with the daughter on admission. She is agreeable to proceed with renal replacement therapy if needed. PPN to be started today.
[2019-07-07 13:13] LABS: Glucose,Whole Blood 520 mg/dL (75-99)
--- NOTE | 2019-07-07 14:44 | PN ---
PROGRESS NOTE DATE OF SERVICE: 07/07/2019 REASON FOR FOLLOWUP: UTI with bacteremia and possible aspiration pneumonia. INTERVAL HISTORY: The patient is currently afebrile. The patient is hemodynamically stable. However, the patient is by far dependent and cannot be taken off the BiPAP, no pressor support. No vomiting or diarrhea has been reported. On examination, patient remains to be lethargic. He is unable to provide any history. PHYSICAL EXAMINATION: Blood pressure 118/75 with a pulse of 71, temperature 98.3, he is 98% on BiPAP. General description is an elderly male, lying in bed in no distress. RESPIRATORY SYSTEM: Unlabored breathing, clear to auscultation anteriorly. HEART: S1, S2. Regular rate and rhythm. ABDOMEN: Soft. No tenderness. LABS: Hemoglobin is 9, white count is 6.2, BUN 126, creatinine is 4.15. DIAGNOSTIC IMPRESSION AND PLAN: Patient with acute respiratory failure which is likely multifactorial. This patient did have a possible component of aspiration pneumonitis in addition to the E coli, UTI and bacteremia. Patient is on Zosyn to continue and will monitor clinical course closely. MMODL / IJN: [id number] /
[2019-07-07] MEDS ORDERED: 1: MVI, ADULT NO.4 WITH VIT K 10 ML, TRACE (CONC-1ML/DOSE) 1 ML, PARENTERAL ELECTROLYTES IV SCH ×4 (15:00)
[2019-07-07] MEDS: FAT EMULSION 20% 250 ML in EMPTY BAG 1 BAG IV SCH (17:09)
[2019-07-07 18:36] LABS: Potassium 4.4 mmol/L (3.5-5.1)
[2019-07-07 23:52] LABS: Glucose,Whole Blood <20 mg/dL (75-99)
[2019-07-08] MEDS: AMIODARONE 300 MG in DEXTROSE 5% IN WATER 250 ML IV SCH ×6 (00:03→20:17)
[2019-07-08] MEDS: methylPREDNISolone SOD SUCCI 40 MG/ML 1 ML VIAL IV SCH ×5 (00:03→23:53)
[2019-07-08] MEDS: THIAMINE 100 MG/ML 2 ML VIAL IVP SCH ×3 (00:09→23:59)
[2019-07-08] MEDS: INSULIN ASPART (NovoLOG) 100 UNIT/ML VIAL SQ SCH ×4 (01:40→18:40)
[2019-07-08] MEDS: 1: MVI, ADULT NO.4 WITH VIT K 10 ML, TRACE (CONC-1ML/DOSE) 1 ML, SODIUM ACETATE 30 MEQ, IV SCH ×12 (04:14→14:00)
[2019-07-08] MEDS: DEXTROSE 5% IN WATER 1,000 ML with SODIUM BICARB (1 MEQ/ML) 75 ML IV SCH ×2 (04:15→11:01)
[2019-07-08 05:53] LABS: Anisocytosis Slight; HCT 29.8 % (39.0-53.0); Hypochromasia Marked; MCV 136.5 fL (80.0-100.0); Macrocytosis Marked; Mean Platelet Volume 13.8; RBC 2.18 m/uL (4.30-5.90); RDW 19.5 % (11.5-15.5)
[2019-07-08 05:54] LABS: HGB 8.1 gm/dL (13.0-17.5); MCH 37.6 pg (25.0-35.0); MCHC 27.2 g/dL (31.0-37.0)
[2019-07-08 06:22] LABS: Band Neutrophils % 8 %; Neutrophils % (M) 82 %; Nucleated Red Blood Cells 3 /100 WBC (0-0); Total Cells Counted 200
--- NOTE | 2019-07-08 06:22 | XR ---
EXAMINATION TYPE: XR chest 1V portable DATE OF EXAM: 07/08/2019 CLINICAL HISTORY: Difficulty breathing progress study. TECHNIQUE: Single AP portable upright view of the chest is obtained. COMPARISON: Chest x-ray from one day earlier and older studies FINDINGS: Stable mild cardiomegaly with atherosclerotic thoracic aorta. Old left lateral mid rib fr actures redemonstrated. Persistent low lung volumes with mild central vascular congestion and chronic parenchymal change. Worsening left basilar opacity noted. Stable right basilar opacity present. IMPRESSION: Mild cardiomegaly and chronic parenchymal change with low lung volumes and left greater t noriega right bibasilar acute atelectasis and/or infiltrate are all redemonstrated. Left basilar findings more prominent on current study versus one day earlier.
[2019-07-08 06:23] LABS: Lymphocytes # (M) 0.27 k/uL (1.0-4.8); Monocytes # (M) 0.27 k/uL (0-1.0); WBC 5.3 k/uL (3.8-10.6)
[2019-07-08 06:24] LABS: Anisocytosis (M) Present; Poikilocytosis (M) Present
[2019-07-08 06:26] LABS: Ionized Calcium 3.8 mg/dL (4.5-5.3)
[2019-07-08 06:30] LABS: Platelet Count 13 k/uL (150-450)
[2019-07-08 06:41] LABS: Albumin 2.7 g/dL (3.5-5.0); Calcium 7.1 mg/dL (8.4-10.2); Total Bilirubin 1.3 mg/dL (0.2-1.3); Total Protein 5.4 g/dL (6.3-8.2)
[2019-07-08 06:44] LABS: Magnesium 2.3 mg/dL (1.6-2.3); Phosphorus 6.3 mg/dL (2.5-4.5)
--- NOTE | 2019-07-08 07:15 | P.PN ---
Subjective Progress Note Date: 07/08/19 Principal diagnosis: paroxysmal atrial fibrillation This is a 73-year-old gentleman with extensive past medical history consistent for thrombocytopenia, chronic kidney disease, as well as multiple comorbid conditions, was brought to the emergency room by his daughter because the patient was not feeling well. Currently the patient is lethargic and the history was taken from the chart. Also the history was taken from the nurse at bedside. The patient was brought to the emergency room by his daughter. Apparently he fell at home several times. He was drinking alcohol excessively. No indication of any symptoms of chest pain or chest discomfort or shortness of breath. No indication of any history of coronary artery disease or congestive heart failure or cardiac arrhythmia. When the patient was seen in the emergency department he was quite hypotensive and required IV fluid excessively. Also he was found to be in acute renal failure. Nephrology is on the case. The patient was seen today, July 072019. He went into atrial fibrillation last night but he seems to be controlled heart rate. He continues to be on amiodarone IV as well as Cardizem IV because he continues to be nothing by mouth. We are continue to hold any oral anticoagulation or IV anticoagulation in view of the severe thrombocytopenia. Overall the prognosis is very poor. Objective - Vital Signs Vital signs: Vital Signs Temp 98.7 F 07/08/19 04:00 Pulse 97 07/08/19 07:00 Resp 20 07/08/19 07:00 BP 113/77 07/08/19 07:00 Pulse Ox 96 07/08/19 07:00 Intake & Output 07/07/19 07/08/19 07/08/19 18:59 06:59 18:59 Intake Total 7615.660 0054.084 226 Output Total 975 960 100 Balance 582.117 5659.084 126 Weight 84.2 kg 85.9 kg Intake: IV 1571 2372 226 Dextrose 5% in Water 1, 1200 1200 100 000 ml @ 100 mls/hr IV . [id number] [facility] with Sodium Bicarb (1 Meq/ml) 75 ml Rx#:[id number] Fat Emulsion 20% 250 ml 21 252 21 In Empty Bag 1 bag @ 21 mls/hr IV Q24H [facility] Rx#: [id number] Mvi, Adult No.4 with Vit 350 820 105 K 10 ml Trace (Conc-1Ml/ Dose) 1 ml Sodium Acetate 30 meq Potassium Chloride 20 meq Calcium Gluconate 1 gm In Amino Acid 4.25%-D10w 1,000 ml @ 50 mls/hr IV .[id number] ONE Rx#:[id number] Piperacillin-Tazobactam 3 100 .375 gm In Sodium Chloride 0.9% 100 ml @ 25 mls/hr IVPB Q12HR [facility] Rx #:[id number] Intake, IV Titration 247.083 237.084 Amount Amiodarone 300 mg In 247.083 Dextrose 5% in Water 250 ml @ 0.5 MG/MIN 25 mls/hr IV .Q10H [facility] Rx#: [id number] Amiodarone 300 mg In 142.917 Dextrose 5% in Water 250 ml @ 0.5 MG/MIN 25 mls/hr IV .Q10H [facility] Rx#: [id number] Diltiazem 125 mg In 94.167 Sodium Chloride 0.9% 100 ml @ 10 MG/HR 10 mls/hr IV .[id number] [facility] Rx#: [id number] Output: Urine 975 960 100 Other: Voiding Method Indwelling Catheter Indwelling Catheter - Constitutional General appearance: Present: no acute distress - Respiratory Respiratory: bilateral: CTA - Cardiovascular Rhythm: irregularly irregular Heart sounds: normal: S1, S2 - Labs CBC & Chem 7: 07/08/19 04:36 07/08/19 04:36 Labs: Abnormal Lab Results - Last 24 Hours (Table) 07/07/19 07/07/19 07/07/19 Range/Units 04:56 13:10 13:26 RBC 2.31 L (4.30-5.90) m/uL Hgb 9.1 L (13.0-17.5) gm/dL Hct 31.6 L (39.0-53.0) % MCV 136.6 H (80.0-100.0) fL MCH 39.3 H (25.0-35.0) pg MCHC 28.8 L (31.0-37.0) g/dL RDW 19.6 H (11.5-15.5) % Plt Count 20 L D (150-450) k/uL Lymphocytes # 0.2 L (1.0-4.8) k/uL Lymphocytes # (Manual) (1.0-4.8) k/uL Nucleated RBCs (0-0) /100 WBC Macrocytosis Marked A Carbon Dioxide (22-30) mmol/L BUN (9-20) mg/dL Creatinine (0.66-1.25) mg/dL Glucose 142 H (74-99) mg/dL POC Glucose (mg/dL) 520 H (75-99) mg/dL Calcium (8.4-10.2) mg/dL Ionized Calcium Joseline (4.5-5.3) mg/dL Phosphorus (2.5-4.5) mg/dL AST (17-59) U/L ALT (4-49) U/L Total Protein (6.3-8.2) g/dL Albumin (3.5-5.0) g/dL 07/07/19 07/07/19 07/08/19 Range/Units 18:02 23:51 00:43 RBC (4.30-5.90) m/uL Hgb (13.0-17.5) gm/dL Hct (39.0-53.0) % MCV (80.0-100.0) fL MCH (25.0-35.0) pg MCHC (31.0-37.0) g/dL RDW (11.5-15.5) % Plt Count (150-450) k/uL Lymphocytes # (1.0-4.8) k/uL Lymphocytes # (Manual) (1.0-4.8) k/uL Nucleated RBCs (0-0) /100 WBC Macrocytosis Carbon Dioxide (22-30) mmol/L BUN 122 H* (9-20) mg/dL Creatinine 3.85 H (0.66-1.25) mg/dL Glucose 197 H 211 H (74-99) mg/dL POC Glucose (mg/dL) <20 L (75-99) mg/dL Calcium 7.0 L (8.4-10.2) mg/dL Ionized Calcium Joseline (4.5-5.3) mg/dL Phosphorus (2.5-4.5) mg/dL AST (17-59) U/L ALT (4-49) U/L Total Protein (6.3-8.2) g/dL Albumin (3.5-5.0) g/dL 07/08/19 07/08/19 Range/Units 04:36 04:36 RBC 2.18 L (4.30-5.90) m/uL Hgb 8.1 L (13.0-17.5) gm/dL Hct 29.8 L (39.0-53.0) % MCV 136.5 H (80.0-100.0) fL MCH 37.6 H (25.0-35.0) pg MCHC 27.2 L (31.0-37.0) g/dL RDW 19.5 H (11.5-15.5) % Plt Count 13 L* (150-450) k/uL Lymphocytes # (1.0-4.8) k/uL Lymphocytes # (Manual) 0.27 L (1.0-4.8) k/uL Nucleated RBCs 3 H (0-0) /100 WBC Macrocytosis Marked A Carbon Dioxide 18 L (22-30) mmol/L BUN 114 H* (9-20) mg/dL Creatinine 3.68 H (0.66-1.25) mg/dL Glucose 239 H (74-99) mg/dL POC Glucose (mg/dL) (75-99) mg/dL Calcium 7.1 L (8.4-10.2) mg/dL Ionized Calcium Joseline 3.8 L (4.5-5.3) mg/dL Phosphorus 6.3 H (2.5-4.5) mg/dL AST 134 H (17-59) U/L ALT 245 H (4-49) U/L Total Protein 5.4 L (6.3-8.2) g/dL Albumin 2.7 L (3.5-5.0) g/dL Assessment and Plan Assessment: assessment Acute renal failure severe thrombocytopenia Paroxysmal atrial fibrillation Respiratory failure Possible pneumonia Plan continue the amiodarone drip as well as Cardizem drip Continue holding any oral anticoagulation or IV anticoagulation at this point The echo was reviewed and showed severe cardiomyopathy Follow-up with the patient
[2019-07-08] MEDS: BUDESONIDE 1 MG/2 ML NEBU INHALATION SCH ×2 (08:04→20:07)
[2019-07-08] MEDS: IPRATROPIUM-ALBUTEROL 3 ML NEB INHALATION SCH ×4 (08:04→20:08)
[2019-07-08] MEDS: FORMOTEROL FUMARATE 20 MCG/2 ML NEBU INHALATION SCH ×2 (08:04→20:07)
[2019-07-08] MEDS: PANTOPRAZOLE 40 MG/10 ML VIAL IV SCH (08:35)
[2019-07-08] MEDS: PIPERACILLIN-TAZOBACTAM 3.375 GM in SODIUM CHLORIDE 0.9% 100 ML IVPB SCH ×2 (08:36→20:16)
--- NOTE | 2019-07-08 10:29 | P.PN ---
Subjective Progress Note Date: 07/08/19 Principal diagnosis: sob Patient has been requiring BiPAP, has not been tolerating high flow nasal cannula well. Making good urine output. He was started on TPN yesterday. No f moiz noted. No other overnight events. Objective - Vital Signs Vital signs: Vital Signs Temp 98.7 F 07/08/19 04:00 Pulse 88 07/08/19 08:29 Resp 20 07/08/19 07:00 BP 113/77 07/08/19 07:00 Pulse Ox 96 07/08/19 07:00 Intake & Output 07/07/19 07/08/19 07/08/19 18:59 06:59 18:59 Intake Total 0367.965 5244.084 226 Output Total 975 960 100 Balance 842.531 8106.084 126 Weight 84.2 kg 85.9 kg Intake: IV 1571 2372 226 Dextrose 5% in Water 1, 1200 1200 100 000 ml @ 100 mls/hr IV . [id number] [facility] with Sodium Bicarb (1 Meq/ml) 75 ml Rx#:[id number] Fat Emulsion 20% 250 ml 21 252 21 In Empty Bag 1 bag @ 21 mls/hr IV Q24H [facility] Rx#: [id number] Mvi, Adult No.4 with Vit 350 820 105 K 10 ml Trace (Conc-1Ml/ Dose) 1 ml Sodium Acetate 30 meq Potassium Chloride 20 meq Calcium Gluconate 1 gm In Amino Acid 4.25%-D10w 1,000 ml @ 50 mls/hr IV .[id number] [facility] Rx#:[id number] Piperacillin-Tazobactam 3 100 .375 gm In Sodium Chloride 0.9% 100 ml @ 25 mls/hr IVPB Q12HR [facility] Rx #:[id number] Intake, IV Titration 247.083 237.084 Amount Amiodarone 300 mg In 247.083 Dextrose 5% in Water 250 ml @ 0.5 MG/MIN 25 mls/hr IV .Q10H [facility] Rx#: [id number] Amiodarone 300 mg In 142.917 Dextrose 5% in Water 250 ml @ 0.5 MG/MIN 25 mls/hr IV .Q10H [facility] Rx#: [id number] Diltiazem 125 mg In 94.167 Sodium Chloride 0.9% 100 ml @ 10 MG/HR 10 mls/hr IV .[id number] [facility] Rx#: [id number] Output: Urine 975 960 100 Other: Voiding Method Indwelling Catheter Indwelling Catheter - Exam Constitutional: Sedated. On bipap Eyes:Anicteric sclerae, moist conjunctiva, no lid-lag, PERRLA, ENMT: Oropharynx clear, no erythema, exudates Neck: Supple, no masses, or JVD, No carotid bruits, No thyromegaly Lungs: Diminished breath sounds bilaterally. Labored breathing with mild accessory muscle use Cardiovascular: Tachycardic, regular, No murmurs, gallops, or rubs, No peripheral edema Abdominal: Distended, firm, Nontender, no guarding, rebound or rigidity, Normoactive bowel sounds, No hepatomegaly, No splenomegaly, No palpable mass Skin: Normal temperature, tone, texture, turgor, no induration, No subcutaneous nodules, No rash, lesions, No ulcers Extremities: No digital cyanosis, No clubbing, Pedal pulses intact and symmetrical, Radial pulses intact and symmetrical, No calf tenderness Neuro: Sedated, moving all extremities. - Labs CBC & Chem 7: 07/08/19 04:36 07/08/19 04:36 Labs: Abnormal Lab Results - Last 24 Hours (Table) 07/07/19 07/07/19 07/07/19 Range/Units 13:10 13:26 18:02 RBC (4.30-5.90) m/uL Hgb (13.0-17.5) gm/dL Hct (39.0-53.0) % MCV (80.0-100.0) fL MCH (25.0-35.0) pg MCHC (31.0-37.0) g/dL RDW (11.5-15.5) % Plt Count (150-450) k/uL Lymphocytes # (Manual) (1.0-4.8) k/uL Nucleated RBCs (0-0) /100 WBC Macrocytosis Carbon Dioxide (22-30) mmol/L BUN 122 H* (9-20) mg/dL Creatinine 3.85 H (0.66-1.25) mg/dL Glucose 142 H 197 H (74-99) mg/dL POC Glucose (mg/dL) 520 H (75-99) mg/dL Calcium 7.0 L (8.4-10.2) mg/dL Ionized Calcium Joseline (4.5-5.3) mg/dL Phosphorus (2.5-4.5) mg/dL AST (17-59) U/L ALT (4-49) U/L Total Protein (6.3-8.2) g/dL Albumin (3.5-5.0) g/dL 07/07/19 07/08/19 07/08/19 Range/Units 23:51 00:43 04:36 RBC (4.30-5.90) m/uL Hgb (13.0-17.5) gm/dL Hct (39.0-53.0) % MCV (80.0-100.0) fL MCH (25.0-35.0) pg MCHC (31.0-37.0) g/dL RDW (11.5-15.5) % Plt Count (150-450) k/uL Lymphocytes # (Manual) (1.0-4.8) k/uL Nucleated RBCs (0-0) /100 WBC Macrocytosis Carbon Dioxide 18 L (22-30) mmol/L BUN 114 H* (9-20) mg/dL Creatinine 3.68 H (0.66-1.25) mg/dL Glucose 211 H 239 H (74-99) mg/dL POC Glucose (mg/dL) <20 L (75-99) mg/dL Calcium 7.1 L (8.4-10.2) mg/dL Ionized Calcium Joseline 3.8 L (4.5-5.3) mg/dL Phosphorus 6.3 H (2.5-4.5) mg/dL AST 134 H (17-59) U/L ALT 245 H (4-49) U/L Total Protein 5.4 L (6.3-8.2) g/dL Albumin 2.7 L (3.5-5.0) g/dL 07/08/19 Range/Units 04:36 RBC 2.18 L (4.30-5.90) m/uL Hgb 8.1 L (13.0-17.5) gm/dL Hct 29.8 L (39.0-53.0) % MCV 136.5 H (80.0-100.0) fL MCH 37.6 H (25.0-35.0) pg MCHC 27.2 L (31.0-37.0) g/dL RDW 19.5 H (11.5-15.5) % Plt Count 13 L* (150-450) k/uL Lymphocytes # (Manual) 0.27 L (1.0-4.8) k/uL Nucleated RBCs 3 H (0-0) /100 WBC Macrocytosis Marked A Carbon Dioxide (22-30) mmol/L BUN (9-20) mg/dL Creatinine (0.66-1.25) mg/dL Glucose (74-99) mg/dL POC Glucose (mg/dL) (75-99) mg/dL Calcium (8.4-10.2) mg/dL Ionized Calcium Joseline (4.5-5.3) mg/dL Phosphorus (2.5-4.5) mg/dL AST (17-59) U/L ALT (4-49) U/L Total Protein (6.3-8.2) g/dL Albumin (3.5-5.0) g/dL Assessment and Plan Plan: E. coli bacteremia, source UTI causing severe sepsis Left-sided hydronephrosis Acute metabolic encephalopathy Acute hypoxic respiratory failure Acute COPD exacerbation Acute on chronic systolic congestive heart failure exacerbation Community acquired pneumonia, high suspicion for acute covid 19 infection [facility] Hypernatremia Metabolic acidosis secondary to acute kidney injury with respiratory compensation/alkalosis Acute on chronic anemia Elevated troponin A-fib with RVR now in sinus rhythm Hx of thrombocytosis now with thromocytopenia Hx of ETOH abuse, last drink in march. Plan Cardiology advising to continue Cardizem and amiodarone drips, he is currently in SR. Bronchodilators Steroids Continue Zosyn Given lasix 80mg IV on 07/05 and on 07/06, making good urine output Continue bicarb gtt, 75 mEq in 1L D5W Monitor CBC and electrolytes. Supportive care in the intensive care unit Seizure precautions Benzos per CIWA scale when necessary Thiamine CODE STATUS: Full code DVT prophylaxis: Anticoagulation is contraindicated due to low platelet count. Anticipated discharge place: Pending clinical course
[2019-07-08] MEDS ORDERED: FUROSEMIDE 10 MG/ML 4 ML VIAL IV STA (10:30)
[2019-07-08 11:56] LABS: Glucose,Whole Blood >600 mg/dL (75-99)
[2019-07-08 11:59] LABS: Glucose,Whole Blood >600 mg/dL (75-99)
--- NOTE | 2019-07-08 12:49 | PN ---
PROGRESS NOTE Patient is seen for followup for acute kidney injury. Renal function has improved with creatinine down from 3.85 to 3.68. The patient has had good urine output. He has had about 90-50 mL an hour of urine output. He is currently maintained on TPN. He is also maintained on bicarb drip. PHYSICAL EXAMINATION: This morning, patient is comfortable, awake he is not in any acute distress. Blood pressure was 136/80, heart rate 80 per minute, he is afebrile. Examination of the heart S1, S2. Examination of the lungs, decreased breath sounds at bases. Abdomen is soft, nontender. Examination of lower extremities shows no significant edema. Multiple sores and discoloration noted on the toes bilaterally. [employer] exam is fairly intact. Patient is moving all 4 extremities. He is alert and oriented x2. LAB: Show sodium 145, potassium 4.0, chloride is 99, CO2 is 18, BUN 114, serum creatinine 3.68, hemoglobin 8.1, platelet count 13,000. ASSESSMENT: 1. Acute kidney injury, acute tubular necrosis, currently slightly better. Continue with IV fluids. 2. Metabolic acidosis maintained on bicarb drip, remains low. Continue with the bicarb drip for now. 3. Left hydronephrosis status post evaluation by Urology with no plans for intervention at this time. 4. Escherichia coli bacteremia maintained on antibiotics. Urine culture was positive for Escherichia coli. 5. Pneumonia, COVID-19 PCR negative, maintained on antibiotics. 6. Atrial fibrillation with rapid ventricular response, maintained on Cardizem drip and amiodarone. 7. Cardiomyopathy, ejection fraction 30-35% with moderate pulmonary hypertension. 8. Congestive heart failure, acute on top of chronic, status post IV Lasix x1 today. PLAN: Continue with the bicarb drip for now. Repeat labs in a.m. Continue to avoid nephrotoxic agents. If patient is able to eat, we can decrease the TPN and add oral sodium bicarb so that we can decrease the IV fluids. Repeat labs in a.m. MMODL / IJN: [id number] /
--- NOTE | 2019-07-08 13:11 | P.PN ---
Subjective Progress Note Date: 07/08/19 The patient is in the ICU with multisystem failure. He was found have mild hydronephrosis on the left side and we were consult would. 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 I suspect inflammation from the aneurysm has caused some very mild hydronephrosis. From urologic standpoint nothing further needs to be done. Objective - Vital Signs Vital signs: Vital Signs Temp 98.5 F 07/08/19 08:00 Pulse 80 07/08/19 12:00 Resp 27 H 07/08/19 12:00 BP 136/80 07/08/19 12:00 Pulse Ox 98 07/08/19 12:00 Intake & Output 07/07/19 07/08/19 07/08/19 18:59 06:59 18:59 Intake Total 1515.607 8219.084 1251 Output Total 975 960 800 Balance 326.229 8724.084 451 Weight 84.2 kg 85.9 kg Intake: IV 1571 2372 1251 Dextrose 5% in Water 1, 1200 1200 600 000 ml @ 100 mls/hr IV . [id number] [facility] with Sodium Bicarb (1 Meq/ml) 75 ml Rx#:[id number] Fat Emulsion 20% 250 ml 21 252 21 In Empty Bag 1 bag @ 21 mls/hr IV Q24H [facility] Rx#: [id number] Mvi, Adult No.4 with Vit 350 820 630 K 10 ml Trace (Conc-1Ml/ Dose) 1 ml Sodium Acetate 30 meq Potassium Chloride 20 meq Calcium Gluconate 1 gm In Amino Acid 4.25%-D10w 1,000 ml @ 50 mls/hr IV .[id number] [facility] Rx#:[id number] Piperacillin-Tazobactam 3 100 .375 gm In Sodium Chloride 0.9% 100 ml @ 25 mls/hr IVPB Q12HR [facility] Rx #:[id number] Intake, IV Titration 247.083 237.084 Amount Amiodarone 300 mg In 247.083 Dextrose 5% in Water 250 ml @ 0.5 MG/MIN 25 mls/hr IV .Q10H [facility] Rx#: [id number] Amiodarone 300 mg In 142.917 Dextrose 5% in Water 250 ml @ 0.5 MG/MIN 25 mls/hr IV .Q10H [facility] Rx#: [id number] Diltiazem 125 mg In 94.167 Sodium Chloride 0.9% 100 ml @ 10 MG/HR 10 mls/hr IV .[id number] [facility] Rx#: [id number] Output: Urine 975 960 800 Other: Voiding Method Indwelling Catheter Indwelling Catheter Indwelling Catheter - Labs CBC & Chem 7: 07/08/19 04:36 07/08/19 12:20 Labs: Abnormal Lab Results - Last 24 Hours (Table) 07/07/19 07/07/19 07/07/19 Range/Units 13:10 13:26 18:02 RBC (4.30-5.90) m/uL Hgb (13.0-17.5) gm/dL Hct (39.0-53.0) % MCV (80.0-100.0) fL MCH (25.0-35.0) pg MCHC (31.0-37.0) g/dL RDW (11.5-15.5) % Plt Count (150-450) k/uL Lymphocytes # (Manual) (1.0-4.8) k/uL Nucleated RBCs (0-0) /100 WBC Macrocytosis Carbon Dioxide (22-30) mmol/L BUN 122 H* (9-20) mg/dL Creatinine 3.85 H (0.66-1.25) mg/dL Glucose 142 H 197 H (74-99) mg/dL POC Glucose (mg/dL) 520 H (75-99) mg/dL Calcium 7.0 L (8.4-10.2) mg/dL Ionized Calcium Joseline (4.5-5.3) mg/dL Phosphorus (2.5-4.5) mg/dL AST (17-59) U/L ALT (4-49) U/L Total Protein (6.3-8.2) g/dL Albumin (3.5-5.0) g/dL 07/07/19 07/08/19 07/08/19 Range/Units 23:51 00:43 04:36 RBC (4.30-5.90) m/uL Hgb (13.0-17.5) gm/dL Hct (39.0-53.0) % MCV (80.0-100.0) fL MCH (25.0-35.0) pg MCHC (31.0-37.0) g/dL RDW (11.5-15.5) % Plt Count (150-450) k/uL Lymphocytes # (Manual) (1.0-4.8) k/uL Nucleated RBCs (0-0) /100 WBC Macrocytosis Carbon Dioxide 18 L (22-30) mmol/L BUN 114 H* (9-20) mg/dL Creatinine 3.68 H (0.66-1.25) mg/dL Glucose 211 H 239 H (74-99) mg/dL POC Glucose (mg/dL) <20 L (75-99) mg/dL Calcium 7.1 L (8.4-10.2) mg/dL Ionized Calcium Joseline 3.8 L (4.5-5.3) mg/dL Phosphorus 6.3 H (2.5-4.5) mg/dL AST 134 H (17-59) U/L ALT 245 H (4-49) U/L Total Protein 5.4 L (6.3-8.2) g/dL Albumin 2.7 L (3.5-5.0) g/dL 07/08/19 07/08/19 07/08/19 Range/Units 04:36 11:47 11:57 RBC 2.18 L (4.30-5.90) m/uL Hgb 8.1 L (13.0-17.5) gm/dL Hct 29.8 L (39.0-53.0) % MCV 136.5 H (80.0-100.0) fL MCH 37.6 H (25.0-35.0) pg MCHC 27.2 L (31.0-37.0) g/dL RDW 19.5 H (11.5-15.5) % Plt Count 13 L* (150-450) k/uL Lymphocytes # (Manual) 0.27 L (1.0-4.8) k/uL Nucleated RBCs 3 H (0-0) /100 WBC Macrocytosis Marked A Carbon Dioxide (22-30) mmol/L BUN (9-20) mg/dL Creatinine (0.66-1.25) mg/dL Glucose (74-99) mg/dL POC Glucose (mg/dL) >600 H >600 H (75-99) mg/dL Calcium (8.4-10.2) mg/dL Ionized Calcium Joseline (4.5-5.3) mg/dL Phosphorus (2.5-4.5) mg/dL AST (17-59) U/L ALT (4-49) U/L Total Protein (6.3-8.2) g/dL Albumin (3.5-5.0) g/dL 07/08/19 Range/Units 12:20 RBC (4.30-5.90) m/uL Hgb (13.0-17.5) gm/dL Hct (39.0-53.0) % MCV (80.0-100.0) fL MCH (25.0-35.0) pg MCHC (31.0-37.0) g/dL RDW (11.5-15.5) % Plt Count (150-450) k/uL Lymphocytes # (Manual) (1.0-4.8) k/uL Nucleated RBCs (0-0) /100 WBC Macrocytosis Carbon Dioxide (22-30) mmol/L BUN (9-20) mg/dL Creatinine (0.66-1.25) mg/dL Glucose 431 H (74-99) mg/dL POC Glucose (mg/dL) (75-99) mg/dL Calcium (8.4-10.2) mg/dL Ionized Calcium Joseline (4.5-5.3) mg/dL Phosphorus (2.5-4.5) mg/dL AST (17-59) U/L ALT (4-49) U/L Total Protein (6.3-8.2) g/dL Albumin (3.5-5.0) g/dL Microbiology - Last 24 Hours (Table) 07/07/19 09:19 Blood Culture - Preliminary Blood No Growth after 24 hours
[2019-07-08] MEDS ORDERED: INSULIN ASPART (NovoLOG) 100 UNIT/ML VIAL SQ STA (13:19)
[2019-07-08] MEDS ORDERED: CALCIUM GLUCONATE 2 GM in SODIUM CHLORIDE 0.9% 100 ML IVPB ONE (13:30)
--- NOTE | 2019-07-08 15:10 | PN ---
PROGRESS NOTE PULMONARY/CRITICAL CARE PROGRESS NOTE: DATE OF SERVICE: 07/08/2019 Critical care time 32 minutes. 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 He initially presented to the emergency department on July 03 with mental status changes and not acting appropriately according to his daughter, Prema. He was found to have E coli bacteremia and E coli urinary tract infection. He is being treated for both. In addition, he developed hypoxemic respiratory failure and is currently BiPAP dependent. His BiPAP settings include an IPAP of 15, an EPAP of 5 with a FiO2 of 40%. In addition, the patient has developed renal failure and also has developed atrial fibrillation with RVR. He is on Cardizem drip a 10 mg an hour, amiodarone at 0.5 mg/minute. In addition, because of his anion gap acidosis, he is on D5W with 1.5 amps of bicarb at 100 mL an hour. Finally, because he was not able to the eat, and not being nourished, we placed a midline catheter and he was started on peripheral parenteral nutrition. His urine and blood were positive for E coli. We are going to give him some Lasix 40 mg IV push today. Overall, his prognosis remains very guarded. He might be a bit more alert today. I did have a long talk with his daughter. I wanted to stress the importance of the fact that Paulettecrystal has multiple medical issues right now, all of which could lead to his demise. I am cautiously optimistic. I will continue to treat him aggressively. His daughter stated that he would want to be intubated and would want to have dialysis if it came to that. We also talked about tracheostomy and PEG tube placement down the road should he require any of that. She understands. PHYSICAL EXAMINATION: VITAL SIGNS: Current vital signs are reviewed. Temperature is 98.5, heart rate 84, respiratory rate 25, blood pressure 121/66, mean 84, saturations are 98%. We are going to switch him from the BiPAP to high-flow nasal O2 to see how he tolerates it. In the past, he desaturated. HEENT: Examination is grossly unremarkable. BiPAP mask in place. NECK: Supple. Full range of motion. No adenopathy. Neck veins are flat. CARDIOVASCULAR: Examination reveals regular rhythm rate. Heart rate 84. S1, S2 normal. Heart sounds are distant. LUNGS: Reveal diffuse coarse rhonchi. There are a few scattered crackles. ABDOMEN: Soft. Bowel sounds are not noted. EXTREMITIES are intact. He does have significant gangrenous changes of both feet and toes. There are some nonhealing ulcers noted. He has also got significant lower extremity acrocyanosis. SKIN is otherwise without rash except for areas of ecchymoses. NEUROLOGIC: Examination reveals the patient is a bit more alert today than yesterday. He is able to answer some basic questions. LABS: Reviewed. White count 5.3, hemoglobin 8.1, hematocrit 29.8, platelet count 13,000. Sodium 125, potassium 4, chloride 99, CO2 is 18, anion gap is 28. BUN and creatinine are 114 and 3.68 respectively. Current calcium is 7.1, AST is 134, ALT is 245. Procalcitonin level is quite high. Urine is positive for what appears to be a urinary tract infection. Drug screen was negative. COVID-19 testing was negative. Chest x-ray shows mild cardiomegaly and chronic parenchymal change with low lung volumes and some bibasilar atelectasis. CURRENT MEDICATIONS: Reviewed. He is currently getting peripheral parenteral nutrition, amiodarone, Pulmicort calcium replacement, Cardizem, formoterol, insulin, DuoNeb, Ativan p.r.n., Solu-Medrol, morphine, Narcan, Protonix, Zosyn, and thiamine. ASSESSMENT: 1. Hypoxemic respiratory failure requiring BiPAP therapy, secondary to fluid overload, and possible pneumonia. In addition, the patient does have underlying chronic obstructive pulmonary disease from chronic tobacco use. 2. Mental status changes, likely related to septic encephalopathy, possibly slightly improved. 3. Escherichia coli bacteremia and Escherichia coli urinary tract infection/urosepsis, currently being treated. 4. History of congestive heart failure with diffuse bilateral infiltrates. 5. Chronic obstructive pulmonary disease exacerbation. 6. History of chronic alcohol and tobacco abuse. 7. Atrial fibrillation with rapid ventricular response, currently on IV Cardizem and IV amiodarone. 8. History of hypertension. 9. History of hyperlipidemia. 10.Degenerative joint disease. 11.History of idiopathic thrombocytosis. 12.Anion gap metabolic acidosis. 13.Chronic kidney disease. 14.General medical debility. 15.Severe peripheral artery disease. PLAN: The patient may be slightly better today than yesterday. We will attempt to try him on some high-flow nasal cannula and get him off BiPAP. He continues on antibiotics. He will get a dose of Lasix today. The patient does appear to be a bit more alert today. He was able to respond to some basic verbal stimuli. The patient did get a midline placed. We started him on peripheral parental nutrition. He is being monitored closely. Additional recommendations and suggestions are forthcoming. He is being treated for E coli bacteremia and E coli urinary tract infection. Prognosis is guarded. We will continue to follow. CRITICAL CARE TIME: 32 minutes. MMHOL / RONEYN: [id number] /
[2019-07-08] MEDS: FAT EMULSION 20% 250 ML in EMPTY BAG 1 BAG IV SCH (16:27)
[2019-07-08 17:39] LABS: Glucose,Whole Blood >600 mg/dL (75-99)
[2019-07-08] MEDS: DILTIAZEM 125 MG in SODIUM CHLORIDE 0.9% 100 ML IV SCH (18:19)
--- NOTE | 2019-07-08 18:40 | PN ---
PROGRESS NOTE DATE OF SERVICE: 07/08/2019 REASON FOR FOLLOWUP: Aspiration pneumonia and UTI with bacteremia. INTERVAL HISTORY: The patient is currently afebrile. The patient is breathing comfortably. Currently off the BiPAP. He is more awake, alert. Mentioned feeling better. No chest pain. No cough. No abdominal pain or diarrhea. PHYSICAL EXAMINATION: Blood pressure 132/78 with a pulse of 75, temperature 98.6. He is 94% on 6 L high-flow oxygen. General description is an elderly male lying in bed in no distress. Respiratory system: Unlabored breathing, clear to auscultation anteriorly. Heart S1, S2. Regular rate and rhythm. Abdomen soft, no tenderness. LABS: Hemoglobin 8.8, white count 5.3, BUN 114, creatinine 3.68. Blood culture repeat has been negative so far. DIAGNOSTIC IMPRESSION AND PLAN: Patient with E coli bacteremia secondary to complicated UTI with also concern for possible aspiration pneumonia. Patient clinically responded to Zosyn, to continue and monitor clinical course closely. MMODL / IJN: [id number] /
[2019-07-08] MEDS ORDERED: INSULIN DETEMIR (LEVEMIR) 100 UNIT/ML SYR SQ ONE (18:45)
[2019-07-09] MEDS: INSULIN ASPART (NovoLOG) 100 UNIT/ML VIAL SQ SCH ×5 (00:58→22:58)
[2019-07-09] MEDS ORDERED: INSULIN DETEMIR (LEVEMIR) 100 UNIT/ML SYR SQ ONE ×2 (01:00→18:45)
[2019-07-09] MEDS: 1: MVI, ADULT NO.4 WITH VIT K 10 ML, TRACE (CONC-1ML/DOSE) 1 ML, SODIUM ACETATE 30 MEQ, IV SCH ×12 (01:22→11:47)
[2019-07-09] MEDS ORDERED: INSULIN ASPART (NovoLOG) 100 UNIT/ML VIAL SQ ONE (02:59)
[2019-07-09] MEDS ORDERED: AMIODARONE 300 MG in DEXTROSE 5% IN WATER 250 ML IV SCH ×2 (03:00)
[2019-07-09] MEDS: DILTIAZEM 125 MG in SODIUM CHLORIDE 0.9% 100 ML IV SCH ×2 (04:36→17:22)
[2019-07-09 05:16] LABS: Anisocytosis Slight; HCT 28.3 % (39.0-53.0); Hypochromasia Marked; MCHC 34.6 g/dL (31.0-37.0); MCV 132.6 fL (80.0-100.0); Macrocytosis Marked; Mean Platelet Volume 15.4; RBC 2.13 m/uL (4.30-5.90); RDW 19.2 % (11.5-15.5)
[2019-07-09 05:23] LABS: Albumin 2.6 g/dL (3.5-5.0); Calcium 7.6 mg/dL (8.4-10.2); Magnesium 1.7 mg/dL (1.6-2.3); Phosphorus 3.7 mg/dL (2.5-4.5); Total Bilirubin 1.2 mg/dL (0.2-1.3); Total Protein 5.3 g/dL (6.3-8.2)
[2019-07-09 05:33] LABS: MCH 45.8 pg (25.0-35.0)
[2019-07-09 05:34] LABS: HGB 9.8 gm/dL (13.0-17.5); Platelet Count 18 k/uL (150-450)
[2019-07-09] MEDS ORDERED: Potassium Replacement Protocol 1 EACH MISC MISCELLANE PRN (05:58)
[2019-07-09] MEDS: POTASSIUM CHLORIDE 10 MEQ in WATER FOR INJECTION 1 100ML.BAG IVPB SCH ×10 (06:44→22:34)
[2019-07-09] MEDS: methylPREDNISolone SOD SUCCI 40 MG/ML 1 ML VIAL IV SCH ×3 (06:44→17:59)
[2019-07-09 06:55] LABS: Band Neutrophils % 11 %; Lymphocytes # (M) 0.23 k/uL (1.0-4.8); Metamyelocytes # (M) 0.06 k/uL (0); Metamyelocytes % 1 %; Monocytes # (M) 0.29 k/uL (0-1.0); Neutrophils % (M) 81 %; Nucleated Red Blood Cells 2 /100 WBC (0-0); Total Cells Counted 200; WBC 5.8 k/uL (3.8-10.6)
[2019-07-09 06:56] LABS: Large Platelets Present; Polychromasia Present
[2019-07-09 06:58] LABS: Poikilocytosis (M) Present
--- NOTE | 2019-07-09 07:02 | P.PN ---
Subjective Progress Note Date: 07/09/19 Principal diagnosis: paroxysmal atrial fibrillation This is a 73-year-old gentleman with extensive past medical history consistent for thrombocytopenia, chronic kidney disease, as well as multiple comorbid conditions, was brought to the emergency room by his daughter because the patient was not feeling well. Currently the patient is lethargic and the history was taken from the chart. Also the history was taken from the nurse at bedside. The patient was brought to the emergency room by his daughter. Apparently he fell at home several times. He was drinking alcohol excessively. No indication of any symptoms of chest pain or chest discomfort or shortness of breath. No indication of any history of coronary artery disease or congestive heart failure or cardiac arrhythmia. When the patient was seen in the emergency department he was quite hypotensive and required IV fluid excessively. Also he was found to be in acute renal failure. Nephrology is on the case. The patient was seen today, July 082019. He went into atrial fibrillation last night but he seems to be controlled heart rate. He continues to be on amiodarone IV as well as Cardizem IV because he continues to be nothing by mouth. We are continue to hold any oral anticoagulation or IV anticoagulation in view of the severe thrombocytopenia. Objective - Vital Signs Vital signs: Vital Signs Temp 98.7 F 07/09/19 04:00 Pulse 90 07/09/19 06:00 Resp 25 H 07/09/19 06:00 BP 132/82 07/09/19 06:00 Pulse Ox 95 07/09/19 06:00 Intake & Output 07/08/19 07/09/19 07/09/19 18:59 06:59 18:59 Intake Total 3857 1607.833 Output Total 1880 1430 Balance 1977 177.833 Weight 85.6 kg Intake: IV 2686 1255 Calcium Gluconate 2 gm In 100 Sodium Chloride 0.9% 100 ml @ 50 mls/hr IVPB ONCE ONE Rx#:[id number] Dextrose 5% in Water 1, 1200 000 ml @ 100 mls/hr IV . [id number] [facility] with Sodium Bicarb (1 Meq/ml) 75 ml Rx#:[id number] Fat Emulsion 20% 250 ml 21 In Empty Bag 1 bag @ 21 mls/hr IV Q24H [facility] Rx#: [id number] Mvi, Adult No.4 with Vit 1365 1155 K 10 ml Trace (Conc-1Ml/ Dose) 1 ml Sodium Acetate 30 meq Potassium Chloride 20 meq Calcium Gluconate 1 gm In Amino Acid 4.25%-D10w 1,000 ml @ 50 mls/hr IV .[id number] [facility] Rx#:[id number] Piperacillin-Tazobactam 3 100 .375 gm In Sodium Chloride 0.9% 100 ml @ 25 mls/hr IVPB Q12HR [facility] Rx #:[id number] Intake, IV Titration 1171 352.833 Amount Amiodarone 300 mg In 250 Dextrose 5% in Water 250 ml @ 0.5 MG/MIN 25 mls/hr IV .Q10H [facility] Rx#: [id number] Diltiazem 125 mg In 125 102.833 Sodium Chloride 0.9% 100 ml @ 10 MG/HR 10 mls/hr IV .[id number] [facility] Rx#: [id number] Mvi, Adult No.4 with Vit 1046 K 10 ml Trace (Conc-1Ml/ Dose) 1 ml Sodium Acetate 30 meq Potassium Chloride 20 meq Calcium Gluconate 1 gm In Amino Acid 4.25%-D10w 1,000 ml @ 105 mls/hr IV .BY DURATION [facility] Rx#: [id number] Output: Urine 1880 1430 Other: Voiding Method Indwelling Catheter Indwelling Catheter - Labs CBC & Chem 7: 07/09/19 04:18 07/09/19 04:18 Labs: Abnormal Lab Results - Last 24 Hours (Table) 07/08/19 07/08/19 07/08/19 Range/Units 11:47 11:57 12:20 RBC (4.30-5.90) m/uL Hgb (13.0-17.5) gm/dL Hct (39.0-53.0) % MCV (80.0-100.0) fL MCH (25.0-35.0) pg RDW (11.5-15.5) % Plt Count (150-450) k/uL Lymphocytes # (Manual) (1.0-4.8) k/uL Metamyelocytes # (Man) (0) k/uL Nucleated RBCs (0-0) /100 WBC Macrocytosis Sodium (137-145) mmol/L Potassium (3.5-5.1) mmol/L Chloride (98-107) mmol/L BUN (9-20) mg/dL Creatinine (0.66-1.25) mg/dL Glucose 431 H (74-99) mg/dL POC Glucose (mg/dL) >600 H >600 H (75-99) mg/dL Calcium (8.4-10.2) mg/dL AST (17-59) U/L ALT (4-49) U/L Total Protein (6.3-8.2) g/dL Albumin (3.5-5.0) g/dL 07/08/19 07/08/19 07/08/19 Range/Units 17:29 17:45 23:32 RBC (4.30-5.90) m/uL Hgb (13.0-17.5) gm/dL Hct (39.0-53.0) % MCV (80.0-100.0) fL MCH (25.0-35.0) pg RDW (11.5-15.5) % Plt Count (150-450) k/uL Lymphocytes # (Manual) (1.0-4.8) k/uL Metamyelocytes # (Man) (0) k/uL Nucleated RBCs (0-0) /100 WBC Macrocytosis Sodium (137-145) mmol/L Potassium (3.5-5.1) mmol/L Chloride (98-107) mmol/L BUN (9-20) mg/dL Creatinine (0.66-1.25) mg/dL Glucose 533 H* 518 H* (74-99) mg/dL POC Glucose (mg/dL) >600 H (75-99) mg/dL Calcium (8.4-10.2) mg/dL AST (17-59) U/L ALT (4-49) U/L Total Protein (6.3-8.2) g/dL Albumin (3.5-5.0) g/dL 07/09/19 07/09/19 07/09/19 Range/Units 02:14 04:18 04:18 RBC 2.13 L (4.30-5.90) m/uL Hgb 9.8 L D (13.0-17.5) gm/dL Hct 28.3 L (39.0-53.0) % MCV 132.6 H (80.0-100.0) fL MCH 45.8 H (25.0-35.0) pg RDW 19.2 H (11.5-15.5) % Plt Count 18 L* (150-450) k/uL Lymphocytes # (Manual) 0.23 L (1.0-4.8) k/uL Metamyelocytes # (Man) 0.06 H (0) k/uL Nucleated RBCs 2 H (0-0) /100 WBC Macrocytosis Marked A Sodium 136 L (137-145) mmol/L Potassium 3.0 L (3.5-5.1) mmol/L Chloride 92 L (98-107) mmol/L BUN 112 H* (9-20) mg/dL Creatinine 2.76 H (0.66-1.25) mg/dL Glucose 530 H* 485 H (74-99) mg/dL POC Glucose (mg/dL) (75-99) mg/dL Calcium 7.6 L (8.4-10.2) mg/dL AST 77 H (17-59) U/L ALT 196 H (4-49) U/L Total Protein 5.3 L (6.3-8.2) g/dL Albumin 2.6 L (3.5-5.0) g/dL Microbiology - Last 24 Hours (Table) 07/07/19 09:19 Blood Culture - Preliminary Blood No Growth after 24 hours Assessment and Plan Assessment: assessment Acute renal failure severe thrombocytopenia Paroxysmal atrial fibrillation Respiratory failure Possible pneumonia Plan continue the amiodarone drip as well as Cardizem drip Continue holding any oral anticoagulation or IV anticoagulation at this point The echo was reviewed and showed severe cardiomyopathy Follow-up with the patient
--- NOTE | 2019-07-09 07:32 | XR ---
EXAMINATION TYPE: XR chest 1V portable DATE OF EXAM: 07/09/2019 COMPARISON: 07/08/2019 HISTORY: Shortness of breath TECHNIQUE: Single frontal view of the chest is obtained. FINDINGS: Worsening left basilar opacity and persistent right perihilar opacity are seen with overal l low lung volumes. The patient is to the to the left shifting the mediastinum to the left. The stent is partially obscured but overall stable. There is diffuse osseous demineralization seen and left-si ded rib fracture deformities. IMPRESSION: Worsening left basilar consolidation and right perihilar opacity. Findings may be on the basis of multifocal atelectasis or pneumonia. Left rib fractures are unchanged.
[2019-07-09] MEDS: IPRATROPIUM-ALBUTEROL 3 ML NEB INHALATION SCH ×4 (08:34→20:21)
[2019-07-09] MEDS: BUDESONIDE 1 MG/2 ML NEBU INHALATION SCH ×2 (08:34→20:20)
[2019-07-09] MEDS: FORMOTEROL FUMARATE 20 MCG/2 ML NEBU INHALATION SCH ×2 (08:34→20:20)
[2019-07-09] MEDS: PANTOPRAZOLE 40 MG/10 ML VIAL IV SCH (08:43)
[2019-07-09] MEDS: PIPERACILLIN-TAZOBACTAM 3.375 GM in SODIUM CHLORIDE 0.9% 100 ML IVPB SCH ×2 (08:43→22:31)
[2019-07-09] MEDS: THIAMINE 100 MG/ML 2 ML VIAL IVP SCH (11:59)
--- NOTE | 2019-07-09 13:02 | PN ---
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 He presented to the emergency room initially on July 03 with mental status changes and not acting appropriately according to his daughter, Prema. He was found to have E coli bacteremia and E coli urinary tract infection. In addition to all of that, he has hypoxemic respiratory failure requiring BiPAP therapy, likely secondary to fluid overload and possible pneumonia. In addition, he had renal failure as well as atrial fibrillation with RVR. All these things including his peripheral artery disease caused him to have significant deterioration. Today, he seems to be doing a bit better. He is on 3 L nasal cannula. Yesterday he was on BiPAP and he was BiPAP dependent. He is getting peripheral parenteral nutrition at 105 mL an hour, Cardizem drip a 10 mg an hour and amiodarone at 0.5 mg/minute. He did fail his swallow evaluation. I did call his daughter, Prema, and gave her an update. She was happy to hear that he was doing better. Overall, the patient has certainly got a long way to go but I do think he has at least made significant progress in the last 24 hours. PHYSICAL EXAMINATION: VITAL SIGNS: Current vital signs are reviewed. His temperature is 97.9, heart rate is 90, respiratory rate 28, blood pressure 144/70, mean 94, saturation is 95%. His heart rate is irregular and consistent with atrial fibrillation. HEENT: Examination is grossly unremarkable. He is getting nasal O2 today at 3 L. NECK: Supple. Full range of motion. No adenopathy. Neck veins are flat. CARDIOVASCULAR: Examination reveals a regular rhythm and rate. Heart rate about 95 beats per minute. S1, S2 normal. Heart sounds are distant. LUNGS: Reveal diffuse coarse rhonchi and some bibasilar crackles. Breath sounds equal. ABDOMEN: Soft. Bowel sounds are not noted. EXTREMITIES are intact. He has significant peripheral vascular disease with significant ulcerations and nonhealing wounds of the feet and toes. He has significant acrocyanosis. There is actually even some mottling of the lower extremities. Skin reveals chronic venous stasis changes as well as diffuse areas of ecchymoses throughout his body. NEUROLOGIC: Examination is brief but nonfocal. He does have global weakness. LABS: Reviewed. White count 5.8, hemoglobin 9.8, hematocrit 28.3, platelet count 18,000, sodium 136, potassium 3, chloride 92, CO2 28, anion gap is 16. BUN and creatinine were 112 and 2.76 respectively. Glucose was 485 down to 370. The rest of the labs are reviewed. Microbiology was positive for both E coli in the urine and blood on July 02 and respectively. A chest x-ray dated July 08 shows some left basilar consolidation which could be consistent with atelectasis and/or pneumonia. Medications are reviewed. They have been reviewed on a daily basis. Everything seems to be appropriate. The patient's Escherichia coli is sensitive to Zosyn. ASSESSMENT: 1. Hypoxemic respiratory failure requiring BiPAP therapy, secondary to fluid overload and possible pneumonia. In addition, chronic obstructive pulmonary disease exacerbation may be contributing to his respiratory failure. 2. Mental status changes, likely secondary to septic encephalopathy, improved. 3. Escherichia coli bacteremia and Escherichia coli urinary tract infection/urosepsis, currently being treated. 4. History of congestive heart failure with diffuse bilateral infiltrates. 5. Chronic obstructive pulmonary disease exacerbation. 6. History of chronic alcohol and tobacco abuse. 7. Atrial fibrillation with rapid ventricular response, currently on IV Cardizem and IV amiodarone. 8. History of benign essential hypertension. 9. History of hyperlipidemia. 10.Degenerative joint disease. 11.History of idiopathic thrombocytosis. 12.Anion gap metabolic acidosis. 13.Chronic kidney disease. 14.General medical debility. 15.Severe peripheral artery disease with foot and toe ulcerations. PLAN: I did speak to the patient's daughter, Prema. The patient seems to be doing better. He is much more awake and alert. We have been able to transition him from BiPAP into nasal cannula. He is currently still receiving peripheral parenteral nutrition at 105 mL and hour and is on Cardizem at 10 mg an hour and amiodarone at 0.5 mg/minute for his atrial fibrillation. He did fail her swallow evaluation. Overall prognosis remains guarded. We will continue to follow. CRITICAL CARE TIME: 31 minutes. LEE / GREYSON: [id number] /
[2019-07-09] MEDS: AMIODARONE 300 MG in DEXTROSE 5% IN WATER 250 ML IV SCH ×2 (15:18)
--- NOTE | 2019-07-09 15:32 | PN ---
PROGRESS NOTE Patient is seen for followup for acute kidney injury. He is currently awake. Denies any significant complaints. Good urine output. Renal function has improved. PHYSICAL EXAMINATION: On examination today, blood pressure 130/82, heart rate 88 per minute, patient is afebrile. Examination of the heart S1, S2. Examination of the lungs, bilateral breath sounds are heard. Decreased breath sounds at bases. Abdomen is soft, distended, nontender. Exam of lower extremities shows discoloration of both legs and extremities are cool to touch. [employer] exam grossly intact. LAB: Show sodium of 136, potassium 3.0, chloride 92, BUN 112, serum creatinine 2.76, albumin 2.6, platelet count 18,000. ASSESSMENT: 1. Acute kidney injury, acute tubular necrosis, currently improving. 2. Hypoxic respiratory failure, maintained on BiPAP associated with pneumonia and volume overload. 3. Encephalopathy and mental status changes, now improved. 4. Escherichia coli bacteremia and urinary tract infection. 5. Sepsis from urinary tract infection. 6. Atrial fibrillation with rapid ventricular response, currently with controlled ventricular response. Maintained on amiodarone drip and Cardizem. 7. Left hydronephrosis, being followed by Urology. No plans for intervention. 8. Cardiomyopathy, ejection fraction 30-35%. PLAN: Agree with discontinuation of bicarb drip. Replace potassium. Repeat labs in a.m. MMODL / IJN: [id number] /
[2019-07-09] MEDS: FAT EMULSION 20% 250 ML in EMPTY BAG 1 BAG IV SCH (16:02)
--- NOTE | 2019-07-09 17:33 | P.PN ---
Subjective Progress Note Date: 07/09/19 Principal diagnosis: Altered mental status Patient was seen and examined. No acute events overnight. Patient currently being treated for E. coli UTI sepsis with hydronephrosis. Also has respiratory failure secondary to CHF, COPD and possible pneumonia. Also in A. fib with RVR. Has history of PAD with necrotic lower extremity wounds. Patient appears confused case was discussed with nursing. Patient failed swallow evaluation. Currently off BiPAP and placed on 3 L nasal cannula maintaining O2 saturation in the 90s. Objective - Vital Signs Vital signs: Vital Signs Temp 98.7 F 07/09/19 16:00 Pulse 101 H 07/09/19 16:00 Resp 14 07/09/19 16:00 BP 136/80 07/09/19 16:00 Pulse Ox 93 L 07/09/19 16:00 Intake & Output 07/08/19 07/09/19 07/09/19 18:59 06:59 18:59 Intake Total 3857 2642.833 805 Output Total 1880 1430 1050 Balance 1976 1212.833 -245 Weight 85.6 kg Intake: IV 2686 1255 205 Calcium Gluconate 2 gm In 100 Sodium Chloride 0.9% 100 ml @ 50 mls/hr IVPB ONCE ONE Rx#:[id number] Dextrose 5% in Water 1, 1200 000 ml @ 100 mls/hr IV . [id number] [facility] with Sodium Bicarb (1 Meq/ml) 75 ml Rx#:[id number] Fat Emulsion 20% 250 ml 21 In Empty Bag 1 bag @ 21 mls/hr IV Q24H [facility] Rx#: [id number] Mvi, Adult No.4 with Vit 1365 1155 105 K 10 ml Trace (Conc-1Ml/ Dose) 1 ml Sodium Acetate 30 meq Potassium Chloride 20 meq Calcium Gluconate 1 gm In Amino Acid 4.25%-D10w 1,000 ml @ 50 mls/hr IV .[id number] [facility] Rx#:[id number] Piperacillin-Tazobactam 3 100 100 .375 gm In Sodium Chloride 0.9% 100 ml @ 25 mls/hr IVPB Q12HR [facility] Rx #:[id number] Intake, IV Titration 1171 1387.833 600 Amount Amiodarone 300 mg In 250 Dextrose 5% in Water 250 ml @ 0.5 MG/MIN 25 mls/hr IV .Q10H [facility] Rx#: [id number] Diltiazem 125 mg In 125 102.833 Sodium Chloride 0.9% 100 ml @ 10 MG/HR 10 mls/hr IV .[id number] [facility] Rx#: [id number] Mvi, Adult No.4 with Vit 1046 K 10 ml Trace (Conc-1Ml/ Dose) 1 ml Sodium Acetate 30 meq Potassium Chloride 20 meq Calcium Gluconate 1 gm In Amino Acid 4.25%-D10w 1,000 ml @ 105 mls/hr IV .BY DURATION [facility] Rx#: [id number] Potassium Chloride 10 meq 600 In Water For Injection 1 100ml.bag @ 100 mls/hr IVPB Q1HR [facility] Rx#: [id number] Sodium Acetate 30 meq 1035 Potassium Chloride 20 meq Calcium Gluconate 1 gm In Amino Acid 4.25%-D10w 1,000 ml @ 105 mls/hr IV .BY DURATION [facility] Rx#: [id number] Output: Urine 1880 1430 1050 Other: Voiding Method Indwelling Catheter Indwelling Catheter Indwelling Catheter - Exam General: [Appears toxic older than stated age], [no distress], [appears at stated age] Derm: [warm], [dry] Head: [atraumatic], [normocephalic], [symmetric] Eyes: [EOMI], [no lid lag], [anicteric sclera] Mouth: [no lip lesion], [mucus membranes moist] Cardiovascular: [S1S2 irregular], [no murmur], [positive posterior tibial pulse bilateral], Lungs: [CTA bilateral], [no rhonchi, no rales] , [no accessory muscle use] Abdominal: [soft], [ nontender to palpation], [distended], [no appreciable organomegaly] Ext: [no gross muscle atrophy], [no edema], [no contractures] Neuro: [Moving all 4 extremities] Psych: [Unable to determine] - Labs CBC & Chem 7: 07/09/19 04:18 07/09/19 10:45 Labs: Abnormal Lab Results - Last 24 Hours (Table) 07/08/19 07/08/19 07/08/19 Range/Units 17:29 17:45 23:32 RBC (4.30-5.90) m/uL Hgb (13.0-17.5) gm/dL Hct (39.0-53.0) % MCV (80.0-100.0) fL MCH (25.0-35.0) pg RDW (11.5-15.5) % Plt Count (150-450) k/uL Lymphocytes # (Manual) (1.0-4.8) k/uL Metamyelocytes # (Man) (0) k/uL Nucleated RBCs (0-0) /100 WBC Macrocytosis Sodium (137-145) mmol/L Potassium (3.5-5.1) mmol/L Chloride (98-107) mmol/L BUN (9-20) mg/dL Creatinine (0.66-1.25) mg/dL Glucose 533 H* 518 H* (74-99) mg/dL POC Glucose (mg/dL) >600 H (75-99) mg/dL Calcium (8.4-10.2) mg/dL AST (17-59) U/L ALT (4-49) U/L Total Protein (6.3-8.2) g/dL Albumin (3.5-5.0) g/dL 07/09/19 07/09/19 07/09/19 Range/Units 02:14 04:18 04:18 RBC 2.13 L (4.30-5.90) m/uL Hgb 9.8 L D (13.0-17.5) gm/dL Hct 28.3 L (39.0-53.0) % MCV 132.6 H (80.0-100.0) fL MCH 45.8 H (25.0-35.0) pg RDW 19.2 H (11.5-15.5) % Plt Count 18 L* (150-450) k/uL Lymphocytes # (Manual) 0.23 L (1.0-4.8) k/uL Metamyelocytes # (Man) 0.06 H (0) k/uL Nucleated RBCs 2 H (0-0) /100 WBC Macrocytosis Marked A Sodium 136 L (137-145) mmol/L Potassium 3.0 L (3.5-5.1) mmol/L Chloride 92 L (98-107) mmol/L BUN 112 H* (9-20) mg/dL Creatinine 2.76 H (0.66-1.25) mg/dL Glucose 530 H* 485 H (74-99) mg/dL POC Glucose (mg/dL) (75-99) mg/dL Calcium 7.6 L (8.4-10.2) mg/dL AST 77 H (17-59) U/L ALT 196 H (4-49) U/L Total Protein 5.3 L (6.3-8.2) g/dL Albumin 2.6 L (3.5-5.0) g/dL 07/09/19 Range/Units 10:45 RBC (4.30-5.90) m/uL Hgb (13.0-17.5) gm/dL Hct (39.0-53.0) % MCV (80.0-100.0) fL MCH (25.0-35.0) pg RDW (11.5-15.5) % Plt Count (150-450) k/uL Lymphocytes # (Manual) (1.0-4.8) k/uL Metamyelocytes # (Man) (0) k/uL Nucleated RBCs (0-0) /100 WBC Macrocytosis Sodium (137-145) mmol/L Potassium 3.0 L (3.5-5.1) mmol/L Chloride (98-107) mmol/L BUN (9-20) mg/dL Creatinine (0.66-1.25) mg/dL Glucose 370 H (74-99) mg/dL POC Glucose (mg/dL) (75-99) mg/dL Calcium (8.4-10.2) mg/dL AST (17-59) U/L ALT (4-49) U/L Total Protein (6.3-8.2) g/dL Albumin (3.5-5.0) g/dL Microbiology - Last 24 Hours (Table) 07/07/19 09:19 Blood Culture - Preliminary Blood No Growth after 48 hours Assessment and Plan Assessment: Sepsis with E. coli UTI and bacteremia Acute renal failure with Left-sided hydronephrosis Acute metabolic encephalopathy Acute hypoxic respiratory failure secondary to COPD, CHF and possible pneumonia rule out COVID Atrial fibrillation with RVR Steroid-induced hyperglycemia Thrombocytopenia Troponin elevation Hypokalemia Severe PAD History of alcohol abuse Blood culture and urine culture positive for E. coli. Plans: Continue Zosyn. Follow repeat blood cultures. Infectious disease on board. BUN 112, creatinine 2.76. Also with left-sided hydronephrosis. Plans: Bicarbonate drip discontinued. Urology evaluated patient for hydronephrosis, found to be mild in nature with nothing further from a urologic standpoint. Avoid nephrotoxins. Repeat BMP tomorrow morning. Nephrology following. His metabolic encephalopathy is likely related to sepsis with E. coli bacteremia along with acute hypoxic respiratory failure. This morning chest x-ray shows chronic parenchymal changes along with by basilar infiltrate left greater than right. Plans: Continue Pulmicort. Continue formoterol. DuoNeb scheduled and as needed for shortness of breath and wheezi ng. Continue Solu-Medrol. O2 per NC to maintain O2 saturation greater than 92%. Low threshold for intubation. Pulmonology on board. Heart rate irregular in the 100s. Plans: Continue amiodarone drip. Continue diltiazem drip. Hold anticoagulation for thrombocytopenia. Cardiology on board. [id number] glucose 370. Plans: Levemir 20 units at bedtime. Insulin sliding scale. Regular Accu-Cheks. Hypoglycemic precautions. Platelet count of 18. Also with chronic alcohol abuse. Plans: No obvious signs of gross bleeding. Hemoglobin remaining stable at 9.8. Repeat CBC tomorrow morning. Transfuse if platelet count less than 10. Troponin 0.061, 0.105, 0.125. Likely demand ischemia from A. fib with RVR also sepsis. Acute coronary syndrome ruled out. Plans: Follow cardiology recommen dations. Potassium 3. Plans: Replace via protocol. Repeat BMP tomorrow morning. Plans: We'll need evaluation by vascular surgery when stable. Plans: Continue to monitor for signs and symptoms of withdrawal. [Patient admitted for E. coli bacteremia and sepsis. Found to have acute renal failure. Also hypoxic respiratory failure from COPD, CHF and possible PNA. Prognosis is guarded.]
[2019-07-09 18:11] LABS: Glucose,Whole Blood 357 mg/dL (75-99)
[2019-07-09 18:23] LABS: Potassium 3.8 mmol/L (3.5-5.1)
[2019-07-09] MEDS: INSULIN DETEMIR (LEVEMIR) 100 UNIT/ML SYR SQ SCH (22:30)
[2019-07-09 22:31] LABS: Glucose,Whole Blood 414 mg/dL (75-99)
[2019-07-10 00:03] LABS: Glucose,Whole Blood 271 mg/dL (75-99)
[2019-07-10] MEDS: THIAMINE 100 MG/ML 2 ML VIAL IVP SCH ×2 (00:06→12:36)
[2019-07-10] MEDS: 1: MVI, ADULT NO.4 WITH VIT K 10 ML, TRACE (CONC-1ML/DOSE) 1 ML, SODIUM ACETATE 30 MEQ, IV SCH ×24 (00:09→21:52)
[2019-07-10] MEDS: methylPREDNISolone SOD SUCCI 40 MG/ML 1 ML VIAL IV SCH ×2 (00:14→05:23)
[2019-07-10 00:51] LABS: Glucose,Whole Blood 304 mg/dL (75-99)
[2019-07-10] MEDS: INSULIN ASPART (NovoLOG) 100 UNIT/ML VIAL SQ SCH ×6 (00:54→20:56)
--- NOTE | 2019-07-10 01:15 | PN ---
PROGRESS NOTE DATE OF SERVICE: 07/09/2019 REASON FOR FOLLOWUP: 1. E coli urinary tract infection infection and bacteremia. 2. Aspiration pneumonia. INTERVAL HISTORY: The patient is currently afebrile. The patient is hemodynamically stable. He seemed to be more awake and alert. Denies having any chest pain. Some cough. No sputum. No nausea, vomiting. No abdominal pain or diarrhea. PHYSICAL EXAMINATION: Blood pressure is 132/86, pulse of 90, temperature 98.8. He is 94% on 2 L nasal cannula. General description is an elderly male lying in bed in no distress. RESPIRATORY SYSTEM: Unlabored breathing, decreased breath sounds at bases. No wheeze. HEART: S1, S2. Regular rate and rhythm. ABDOMEN: Soft, no tenderness. EXTREMITIES: No edema of the feet. LABS: Hemoglobin 9.8, white count 5.8. BUN 112, creatinine 2.76. DIAGNOSTIC IMPRESSION AND PLAN: Patient with E coli bacteremia secondary to urinary source. Follow-up blood culture has been negative; also with a component aspiration pneumonia. Patient is covered with Zosyn to continue and will monitor clinical course closely. Continue with supportive care. MMODL / IJN: [id number] /
[2019-07-10 04:55] LABS: Anisocytosis Slight; HCT 31.2 % (39.0-53.0); Hypochromasia Marked; MCV 133.6 fL (80.0-100.0); Macrocytosis Marked; Mean Platelet Volume 15.2; RBC 2.34 m/uL (4.30-5.90); WBC 9.9 k/uL (3.8-10.6)
[2019-07-10 04:56] LABS: HGB 9.1 gm/dL (13.0-17.5); MCH 38.6 pg (25.0-35.0)
[2019-07-10 04:57] LABS: Platelet Count 25 k/uL (150-450)
[2019-07-10 05:12] LABS: Total Bilirubin 1.3 mg/dL (0.2-1.3)
[2019-07-10 05:18] LABS: Glucose,Whole Blood 381 mg/dL (75-99)
[2019-07-10 05:28] LABS: Magnesium 1.7 mg/dL (1.6-2.3); Phosphorus 3.1 mg/dL (2.5-4.5)
[2019-07-10 05:29] LABS: Albumin 2.7 g/dL (3.5-5.0); Total Protein 5.5 g/dL (6.3-8.2)
[2019-07-10] MEDS: MORPHINE SULFATE 4 MG/ML SYRINGE IV PRN (05:31)
[2019-07-10] MEDS: AMIODARONE 300 MG in DEXTROSE 5% IN WATER 250 ML IV SCH ×6 (05:36→20:01)
--- NOTE | 2019-07-10 07:20 | XR ---
EXAMINATION TYPE: XR chest 1V portable DATE OF EXAM: 07/10/2019 Comparison: 07/09/2019 Clinical History: 73-year-old male with exertional dyspnea. Findings: Heart upper limits of normal in size. Mild interstitial density and patchy bibasilar opacity with sma ll left effusion. Interstitial density similar to slightly worsened. Impression: Interstitial density slightly worsened in the interval. Continued small left effusion with adjacent a telectasis and/or consolidation, possible CHF etiology.
--- NOTE | 2019-07-10 07:29 | P.PN ---
Subjective Progress Note Date: 07/10/19 Principal diagnosis: paroxysmal atrial fibrillation This is a 73-year-old gentleman with extensive past medical history consistent for thrombocytopenia, chronic kidney disease, as well as multiple comorbid conditions, was brought to the emergency room by his daughter because the patient was not feeling well. Currently the patient is lethargic and the history was taken from the chart. Also the history was taken from the nurse at bedside. The patient was brought to the emergency room by his daughter. Apparently he fell at home several times. He was drinking alcohol excessively. No indication of any symptoms of chest pain or chest discomfort or shortness of breath. No indication of any history of coronary artery disease or congestive heart failure or cardiac arrhythmia. When the patient was seen in the emergency department he was quite hypotensive and required IV fluid excessively. Also he was found to be in acute renal failure. Nephrology is on the case. The patient was seen today, July 092019. Overall mentation jones he is doing better. Hemodynamically he is stable as well. He continues to be on amiodarone as well as Cardizem at this point because he still nothing by mouth. We are holding any anticoagulation in view of the severe thrombocytopenia. The chest x-ray was reviewed today as well as the blood work. The chest x-ray showed possible mild heart failure. The blood work indicated a creatinine of 2.27 which is slightly better compared to before. Objective - Vital Signs Vital signs: Vital Signs Temp 98.0 F 07/10/19 05:00 Pulse 101 H 07/10/19 06:00 Resp 21 07/10/19 06:00 BP 139/93 07/10/19 06:00 Pulse Ox 95 07/10/19 06:00 Intake & Output 07/09/19 07/10/19 07/10/19 18:59 06:59 18:59 Intake Total 1975 2256.25 Output Total 1210 1375 Balance 766 881.25 Weight 89.9 kg Intake: IV 205 1355 Mvi, Adult No.4 with Vit 1155 K 10 ml Trace (Conc-1Ml/ Dose) 1 ml Sodium Acetate 30 meq Potassium Chloride 20 meq Calcium Gluconate 1 gm In Amino Acid 4.25%-D10w 1,000 ml @ 105 mls/hr IV .BY DURATION [facility] Rx#: [id number] Mvi, Adult No.4 with Vit 105 K 10 ml Trace (Conc-1Ml/ Dose) 1 ml Sodium Acetate 30 meq Potassium Chloride 20 meq Calcium Gluconate 1 gm In Amino Acid 4.25%-D10w 1,000 ml @ 50 mls/hr IV .[id number] [facility] Rx#:[id number] Piperacillin-Tazobactam 3 100 100 .375 gm In Sodium Chloride 0.9% 100 ml @ 25 mls/hr IVPB Q12HR [facility] Rx #:[id number] Potassium Chloride 10 meq 100 In Water For Injection 1 100ml.bag @ 100 mls/hr IVPB Q1HR [facility] Rx#: [id number] Intake, IV Titration 1771 901.25 Amount Amiodarone 300 mg In 250 Dextrose 5% in Water 250 ml @ 0.5 MG/MIN 25 mls/hr IV .Q10H [facility] Rx#: [id number] Diltiazem 125 mg In 125 Sodium Chloride 0.9% 100 ml @ 10 MG/HR 10 mls/hr IV .[id number] [facility] Rx#: [id number] Mvi, Adult No.4 with Vit 1046 551.25 K 10 ml Trace (Conc-1Ml/ Dose) 1 ml Sodium Acetate 30 meq Potassium Chloride 20 meq Calcium Gluconate 1 gm In Amino Acid 4.25%-D10w 1,000 ml @ 105 mls/hr IV .BY DURATION [facility] Rx#: [id number] Potassium Chloride 10 meq 600 100 In Water For Injection 1 100ml.bag @ 100 mls/hr IVPB Q1HR [facility] Rx#: [id number] Output: Urine 1210 1375 Other: Voiding Method Indwelling Catheter Indwelling Catheter - Constitutional General appearance: Present: no acute distress - Respiratory Respiratory: bilateral: diminished - Cardiovascular Heart sounds: normal: S1, S2 - Labs CBC & Chem 7: 07/10/19 03:53 07/10/19 03:53 Labs: Abnormal Lab Results - Last 24 Hours (Table) 07/09/19 07/09/19 07/09/19 Range/Units 10:45 18:05 18:10 RBC (4.30-5.90) m/uL Hgb (13.0-17.5) gm/dL Hct (39.0-53.0) % MCV (80.0-100.0) fL MCH (25.0-35.0) pg MCHC (31.0-37.0) g/dL RDW (11.5-15.5) % Plt Count (150-450) k/uL Macrocytosis Potassium 3.0 L (3.5-5.1) mmol/L Carbon Dioxide (22-30) mmol/L BUN (9-20) mg/dL Creatinine (0.66-1.25) mg/dL Glucose 370 H 336 H (74-99) mg/dL POC Glucose (mg/dL) 357 H (75-99) mg/dL Calcium (8.4-10.2) mg/dL AST (17-59) U/L ALT (4-49) U/L Total Protein (6.3-8.2) g/dL Albumin (3.5-5.0) g/dL 07/09/19 07/10/19 07/10/19 Range/Units 22:29 00:02 00:49 RBC (4.30-5.90) m/uL Hgb (13.0-17.5) gm/dL Hct (39.0-53.0) % MCV (80.0-100.0) fL MCH (25.0-35.0) pg MCHC (31.0-37.0) g/dL RDW (11.5-15.5) % Plt Count (150-450) k/uL Macrocytosis Potassium (3.5-5.1) mmol/L Carbon Dioxide (22-30) mmol/L BUN (9-20) mg/dL Creatinine (0.66-1.25) mg/dL Glucose (74-99) mg/dL POC Glucose (mg/dL) 414 H 271 H 304 H (75-99) mg/dL Calcium (8.4-10.2) mg/dL AST (17-59) U/L ALT (4-49) U/L Total Protein (6.3-8.2) g/dL Albumin (3.5-5.0) g/dL 07/10/19 07/10/19 07/10/19 Range/Units 03:53 03:53 05:16 RBC 2.34 L (4.30-5.90) m/uL Hgb 9.1 L (13.0-17.5) gm/dL Hct 31.2 L (39.0-53.0) % MCV 133.6 H (80.0-100.0) fL MCH 38.6 H (25.0-35.0) pg MCHC 29.0 L (31.0-37.0) g/dL RDW 19.0 H (11.5-15.5) % Plt Count 25 L (150-450) k/uL Macrocytosis Marked A Potassium (3.5-5.1) mmol/L Carbon Dioxide 20 L (22-30) mmol/L BUN 97 H (9-20) mg/dL Creatinine 2.27 H (0.66-1.25) mg/dL Glucose 274 H (74-99) mg/dL POC Glucose (mg/dL) 381 H (75-99) mg/dL Calcium 8.0 L (8.4-10.2) mg/dL AST 82 H (17-59) U/L ALT 145 H (4-49) U/L Total Protein 5.5 L (6.3-8.2) g/dL Albumin 2.7 L (3.5-5.0) g/dL Microbiology - Last 24 Hours (Table) 07/07/19 09:19 Blood Culture - Preliminary Blood No Growth after 48 hours Assessment and Plan Assessment: assessment Acute renal failure severe thrombocytopenia Paroxysmal atrial fibrillation Respiratory failure Possible pneumonia Plan continue the amiodarone drip as well as Cardizem drip Continue holding any oral anticoagulation or IV anticoagulation at this point The echo was reviewed and showed severe cardiomyopathy Follow-up with the patient
[2019-07-10] MEDS: IPRATROPIUM-ALBUTEROL 3 ML NEB INHALATION SCH ×4 (08:07→19:31)
[2019-07-10] MEDS: BUDESONIDE 1 MG/2 ML NEBU INHALATION SCH ×2 (08:07→19:31)
[2019-07-10] MEDS: FORMOTEROL FUMARATE 20 MCG/2 ML NEBU INHALATION SCH ×2 (08:07→19:31)
[2019-07-10] MEDS ORDERED: FUROSEMIDE 10 MG/ML 4 ML VIAL IV STA (08:24)
[2019-07-10 08:56] LABS: Glucose,Whole Blood 339 mg/dL (75-99)
[2019-07-10] MEDS: PANTOPRAZOLE 40 MG/10 ML VIAL IV SCH (08:58)
--- NOTE | 2019-07-10 12:04 | P.PN ---
Subjective Progress Note Date: 07/10/19 Patient seen and evaluated lying in bed. Nurses are at bedside giving patient a bath. Patient tolerated being off BiPAP through the night. The patient denies any pain in his lower extremities. He continues to have some shortness of breath. The patient is aware of his surroundings and more alert today. Echocardiogram was performed showing severe cardiomyopathy per cardiology note. Objective - Vital Signs Vital signs: Vital Signs Temp 98.1 F 07/10/19 08:00 Pulse 110 H 07/10/19 11:10 Resp 21 07/10/19 11:00 BP 136/88 07/10/19 11:00 Pulse Ox 99 07/10/19 11:00 Intake & Output 07/09/19 07/10/19 07/10/19 18:59 06:59 18:59 Intake Total 1976 3291.25 575 Output Total 1210 1330 890 Balance 766 1961.25 -315 Weight 89.9 kg 89.9 kg Intake: IV 205 1355 575 Mvi, Adult No.4 with Vit 1155 525 K 10 ml Trace (Conc-1Ml/ Dose) 1 ml Sodium Acetate 30 meq Potassium Chloride 20 meq Calcium Gluconate 1 gm In Amino Acid 4.25%-D10w 1,000 ml @ 105 mls/hr IV .BY DURATION [facility] Rx#: [id number] Mvi, Adult No.4 with Vit 105 K 10 ml Trace (Conc-1Ml/ Dose) 1 ml Sodium Acetate 30 meq Potassium Chloride 20 meq Calcium Gluconate 1 gm In Amino Acid 4.25%-D10w 1,000 ml @ 50 mls/hr IV .[id number] [facility] Rx#:[id number] Piperacillin-Tazobactam 3 100 100 .375 gm In Sodium Chloride 0.9% 100 ml @ 25 mls/hr IVPB Q12HR [facility] Rx #:[id number] Potassium Chloride 10 meq 100 In Water For Injection 1 100ml.bag @ 100 mls/hr IVPB Q1HR [facility] Rx#: [id number] cefTRIAXone 2 gm In 50 Sodium Chloride 0.9% 50 ml @ 100 mls/hr IVPB Q24HR [facility] Rx#:[id number] Intake, IV Titration 1770 1935.25 Amount Amiodarone 300 mg In 250 Dextrose 5% in Water 250 ml @ 0.5 MG/MIN 25 mls/hr IV .Q10H [facility] Rx#: [id number] Diltiazem 125 mg In 125 Sodium Chloride 0.9% 100 ml @ 10 MG/HR 10 mls/hr IV .[id number] [facility] Rx#: [id number] Mvi, Adult No.4 with Vit 1046 551.25 K 10 ml Trace (Conc-1Ml/ Dose) 1 ml Sodium Acetate 30 meq Potassium Chloride 20 meq Calcium Gluconate 1 gm In Amino Acid 4.25%-D10w 1,000 ml @ 105 mls/hr IV .BY DURATION [facility] Rx#: [id number] Potassium Chloride 10 meq 600 100 In Water For Injection 1 100ml.bag @ 100 mls/hr IVPB Q1HR [facility] Rx#: [id number] Sodium Acetate 30 meq 1035 Potassium Chloride 20 meq Calcium Gluconate 1 gm In Amino Acid 4.25%-D10w 1,000 ml @ 105 mls/hr IV .BY DURATION [facility] Rx#: [id number] Output: Urine 1210 1330 890 Other: Voiding Method Indwelling Catheter Indwelling Catheter - Exam General appearance: The patient is alert and awake, in no acute distress. HET: Head is normocephalic and atraumatic. Neck: Supple without lymphadenopathy. Trachea midline. Heart: S1 S2. Regular rate and rhythm. Lungs: Diminished lung sounds. Abdomen: Soft, nontender, nondistended with bowel sounds. Extremities: Bilateral hands with purple coloring and mottling, bilateral palpable 2+ radial pulses. Mottling to bilateral lower extremities up to mid thigh. Bilateral lower extremities with nonpalpable pulses, and absent doppler signal at PT and DP. Bilateral femoral and popliteal Doppler signal. Ulcers on lateral side of bilateral ankles, with ulcerations to bilateral great toes and left second toe. Bilateral lower extremities cold to touch, delayed capillary refill. Patient is able to freely move bilateral lower extremities and toes, sensation is intact bilaterally. Neurological: Patient is drowsy and falls asleep easily. - Labs CBC & Chem 7: 07/10/19 03:53 07/10/19 12:58 Labs: Abnormal Lab Results - Last 24 Hours (Table) 07/09/19 07/09/19 07/09/19 Range/Units 18:05 18:10 22:29 RBC (4.30-5.90) m/uL Hgb (13.0-17.5) gm/dL Hct (39.0-53.0) % MCV (80.0-100.0) fL MCH (25.0-35.0) pg MCHC (31.0-37.0) g/dL RDW (11.5-15.5) % Plt Count (150-450) k/uL Macrocytosis Carbon Dioxide (22-30) mmol/L BUN (9-20) mg/dL Creatinine (0.66-1.25) mg/dL Glucose 336 H (74-99) mg/dL POC Glucose (mg/dL) 357 H 414 H (75-99) mg/dL Calcium (8.4-10.2) mg/dL AST (17-59) U/L ALT (4-49) U/L Total Protein (6.3-8.2) g/dL Albumin (3.5-5.0) g/dL 07/10/19 07/10/19 07/10/19 Range/Units 00:02 00:49 03:53 RBC (4.30-5.90) m/uL Hgb (13.0-17.5) gm/dL Hct (39.0-53.0) % MCV (80.0-100.0) fL MCH (25.0-35.0) pg MCHC (31.0-37.0) g/dL RDW (11.5-15.5) % Plt Count (150-450) k/uL Macrocytosis Carbon Dioxide 20 L (22-30) mmol/L BUN 97 H (9-20) mg/dL Creatinine 2.27 H (0.66-1.25) mg/dL Glucose 274 H (74-99) mg/dL POC Glucose (mg/dL) 271 H 304 H (75-99) mg/dL Calcium 8.0 L (8.4-10.2) mg/dL AST 82 H (17-59) U/L ALT 145 H (4-49) U/L Total Protein 5.5 L (6.3-8.2) g/dL Albumin 2.7 L (3.5-5.0) g/dL 07/10/19 07/10/19 07/10/19 Range/Units 03:53 05:16 08:54 RBC 2.34 L (4.30-5.90) m/uL Hgb 9.1 L (13.0-17.5) gm/dL Hct 31.2 L (39.0-53.0) % MCV 133.6 H (80.0-100.0) fL MCH 38.6 H (25.0-35.0) pg MCHC 29.0 L (31.0-37.0) g/dL RDW 19.0 H (11.5-15.5) % Plt Count 25 L (150-450) k/uL Macrocytosis Marked A Carbon Dioxide (22-30) mmol/L BUN (9-20) mg/dL Creatinine (0.66-1.25) mg/dL Glucose (74-99) mg/dL POC Glucose (mg/dL) 381 H 339 H (75-99) mg/dL Calcium (8.4-10.2) mg/dL AST (17-59) U/L ALT (4-49) U/L Total Protein (6.3-8.2) g/dL Albumin (3.5-5.0) g/dL Microbiology - Last 24 Hours (Table) 07/07/19 09:19 Blood Culture - Preliminary Blood No Growth after 48 hours Assessment and Plan Assessment: 1. Bilateral lower extremity toe ulcerations, Tanner 5 peripheral arterial disease 2. Acute metabolic encephalopathy #3 acute hypoxic respiratory failure, previously on BiPAP #4 metabolic acidosis with acute kidney injury-stable 5. Acute kidney injury 6. History of abdominal aortic aneurysm status post repair #7 history of alcohol abuse and withdrawal #8 chronic anemia #9 thrombocytopenia Plan: At this time the patient is not a candidate to have any vascular surgery inter ventions. Renal function has improved, patient remains thrombocytopenic. Continue medical management. The above dictated assessment and findings were discussed with Dr. Madden. The impression and plan of care have been directed as dictated.
--- NOTE | 2019-07-10 12:33 | P.PN ---
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 coli sepsis secondary to UTI. The patient subsequently went into hypoxic respiratory failure requiring BiPAP for respiratory support with a component of fluid overload and possible pneumonia. In addition, the patient had acute kidney injury, atrial fibrillation with rapid ventricular response. He is known to have also peripheral vascular disease. The patient was placed on BiPAP for respiratory support and he was kept in the intensive care unit. In terms of his E. coli sepsis, urine culture and the blood culture was positive and the patient is still receiving IV antibiotics and the patient is currently on IV Zosyn. He is afebrile and he is hemodynamically stable on no pressors and the patient is not requiring any pressors. In fact, the patient is on amiodarone drip at 0.5 mg per minute and addition to Cardizem at 10 mg an hour for rate control regarding his atrial fibrillation. His echocardiogram was completed on 07/05/2019 and the patient was found to have a impaired LV function with an ejection fraction of 30-35% and mildly enlarged RV with a right-sided pulmonary artery pressure is estimated to be around 46 mmHg. His renal function was also abnormal. The patient developed an acute kidney injury, admission with a creat inine of 4.6 which gradually improved during the course of his treatment with a decline in the creatinine levels. The patient also had a anion gap metabolic acidosis with gradually recovered. Nephrology is on the case. Ultrasound the kidneys did not show any significant hydronephrosis on this patient. The chest x-ray showed left basilar consolidation right perihilar opacity consistent with multifocal atelectasis/pneumonia. He is receiving PPN for nutritional support. He does have also comorbidities including hypertension, hyperlipidemia, COPD and addition to chronic alcohol use. On today's evaluation of 07/10/2019, the patient is lethargic and weak yet awake and following commands and answering questions appropriately. He is on 3 L of oxygen by nasal cannula. He is not utilizing his BiPAP for now. He remains in atrial fibrillation. He remains on amiodarone maintenance of 0.5 mg per minute. He is on IV Zosyn. His thrombocytopenia is improving. He is receiving PPN for nutritional support. He does have severe peripheral vascular disease along with chronic arterial necroti c ulcers in his toes bilaterally in addition to some necrotic wounds in the ankles bilaterally worse on the right. He remains afebrile. Objective - Vital Signs Vital signs: Vital Signs Temp 98.1 F 07/10/19 12:00 Pulse 93 07/10/19 12:00 Resp 19 07/10/19 12:00 BP 131/78 07/10/19 12:00 Pulse Ox 97 07/10/19 12:00 Intake & Output 07/09/19 07/10/19 07/10/19 18:59 06:59 18:59 Intake Total 1976 3291.25 850 Output Total 1210 1330 1115 Balance 766 1961.25 -265 Weight 89.9 kg 89.9 kg Intake: IV 205 1355 680 Mvi, Adult No.4 with Vit 1155 630 K 10 ml Trace (Conc-1Ml/ Dose) 1 ml Sodium Acetate 30 meq Potassium Chloride 20 meq Calcium Gluconate 1 gm In Amino Acid 4.25%-D10w 1,000 ml @ 105 mls/hr IV .BY DURATION [facility] Rx#: [id number] Mvi, Adult No.4 with Vit 105 K 10 ml Trace (Conc-1Ml/ Dose) 1 ml Sodium Acetate 30 meq Potassium Chloride 20 meq Calcium Gluconate 1 gm In Amino Acid 4.25%-D10w 1,000 ml @ 50 mls/hr IV .[id number] [facility] Rx#:[id number] Piperacillin-Tazobactam 3 100 100 .375 gm In Sodium Chloride 0.9% 100 ml @ 25 mls/hr IVPB Q12HR [facility] Rx #:[id number] Potassium Chloride 10 meq 100 In Water For Injection 1 100ml.bag @ 100 mls/hr IVPB Q1HR [facility] Rx#: [id number] cefTRIAXone 2 gm In 50 Sodium Chloride 0.9% 50 ml @ 100 mls/hr IVPB Q24HR [facility] Rx#:[id number] Intake, IV Titration 1770 1935.25 170 Amount Amiodarone 300 mg In 250 170 Dextrose 5% in Water 250 ml @ 0.5 MG/MIN 25 mls/hr IV .Q10H [facility] Rx#: [id number] Diltiazem 125 mg In 125 Sodium Chloride 0.9% 100 ml @ 10 MG/HR 10 mls/hr IV .[id number] [facility] Rx#: [id number] Mvi, Adult No.4 with Vit 1046 551.25 K 10 ml Trace (Conc-1Ml/ Dose) 1 ml Sodium Acetate 30 meq Potassium Chloride 20 meq Calcium Gluconate 1 gm In Amino Acid 4.25%-D10w 1,000 ml @ 105 mls/hr IV .BY DURATION [facility] Rx#: [id number] Potassium Chloride 10 meq 600 100 In Water For Injection 1 100ml.bag @ 100 mls/hr IVPB Q1HR [facility] Rx#: [id number] Sodium Acetate 30 meq 1035 Potassium Chloride 20 meq Calcium Gluconate 1 gm In Amino Acid 4.25%-D10w 1,000 ml @ 105 mls/hr IV .BY DURATION [facility] Rx#: [id number] Output: Urine 1210 1330 1115 Other: Voiding Method Indwelling Catheter Indwelling Catheter Indwelling Catheter - Exam Gen. appearance the patient is calm and comfortable likely distress, he looks and appears to be quite sick and debilitated. Head exam was generally normal. There was no scleral icterus or corneal arcus. Mucous membranes were moist. Neck was supple and without jugular venous distension, thyromegaly, or carotid bruits. Carotids were easily palpable bilaterally. There was no adenopathy. heart sounds are irregular consistent with atrial fibrillat.Cardiac exam revealed the PMI to be normally situated and sized. The rhythm was regular and no extrasystoles were noted during several minutes of auscultation. The first and second heart sounds were normal and physiologic splitting of the second heart sound was noted. There were no murmurs, rubs, clicks, or gallops. Lungs sounds are diminished in lung bases along with coarse rhonchi and some bibasilar crackles are present. Abdominal exam revealed normal bowel sounds. The abdomen was soft, non-tender, and without masses, organomegaly, or appreciable enlargement of the abdominal aorta. Extremities the patient is known to have peripheral vascular disease and has significant ulceration in nonhealing wounds of the feet and the toes. There is significant acrocyanosis. There is also some mottling of the lower extremities. Skin reveals arterial necrotic ulcers in his toes bilaterally where several toes are necrotic and the patient has necrotic ankle wounds worse on the right lateral aspect of the ankle as well as chronic ecchymotic areas throughout his body. Pulses are diminished in the lower extremity is bilaterally, barely obtained by Doppler signals. Neurologically the patient is having global weakness and there is no focal neurological deficit at this point in time. - Labs CBC & Chem 7: 07/10/19 03:53 07/10/19 03:53 Labs: Abnormal Lab Results - Last 24 Hours (Table) 07/09/19 07/09/19 07/09/19 Range/Units 18:05 18:10 22:29 RBC (4.30-5.90) m/uL Hgb (13.0-17.5) gm/dL Hct (39.0-53.0) % MCV (80.0-100.0) fL MCH (25.0-35.0) pg MCHC (31.0-37.0) g/dL RDW (11.5-15.5) % Plt Count (150-450) k/uL Macrocytosis Carbon Dioxide (22-30) mmol/L BUN (9-20) mg/dL Creatinine (0.66-1.25) mg/dL Glucose 336 H (74-99) mg/dL POC Glucose (mg/dL) 357 H 414 H (75-99) mg/dL Calcium (8.4-10.2) mg/dL AST (17-59) U/L ALT (4-49) U/L Total Protein (6.3-8.2) g/dL Albumin (3.5-5.0) g/dL 07/10/19 07/10/19 07/10/19 Range/Units 00:02 00:49 03:53 RBC (4.30-5.90) m/uL Hgb (13.0-17.5) gm/dL Hct (39.0-53.0) % MCV (80.0-100.0) fL MCH (25.0-35.0) pg MCHC (31.0-37.0) g/dL RDW (11.5-15.5) % Plt Count (150-450) k/uL Macrocytosis Carbon Dioxide 20 L (22-30) mmol/L BUN 97 H (9-20) mg/dL Creatinine 2.27 H (0.66-1.25) mg/dL Glucose 274 H (74-99) mg/dL POC Glucose (mg/dL) 271 H 304 H (75-99) mg/dL Calcium 8.0 L (8.4-10.2) mg/dL AST 82 H (17-59) U/L ALT 145 H (4-49) U/L Total Protein 5.5 L (6.3-8.2) g/dL Albumin 2.7 L (3.5-5.0) g/dL 07/10/19 07/10/19 07/10/19 Range/Units 03:53 05:16 08:54 RBC 2.34 L (4.30-5.90) m/uL Hgb 9.1 L (13.0-17.5) gm/dL Hct 31.2 L (39.0-53.0) % MCV 133.6 H (80.0-100.0) fL MCH 38.6 H (25.0-35.0) pg MCHC 29.0 L (31.0-37.0) g/dL RDW 19.0 H (11.5-15.5) % Plt Count 25 L (150-450) k/uL Macrocytosis Marked A Carbon Dioxide (22-30) mmol/L BUN (9-20) mg/dL Creatinine (0.66-1.25) mg/dL Glucose (74-99) mg/dL POC Glucose (mg/dL) 381 H 339 H (75-99) mg/dL Calcium (8.4-10.2) mg/dL AST (17-59) U/L ALT (4-49) U/L Total Protein (6.3-8.2) g/dL Albumin (3.5-5.0) g/dL Microbiology - Last 24 Hours (Table) 07/07/19 09:19 Blood Culture - Preliminary Blood No Growth after 72 hours Assessment and Plan Plan: 1 sepsis with E. coli bacteremia secondary to an underlying UTI currently on IV Zosyn. The patient is hemodynamically stable on no pressors for now. 2 acute hypoxic respiratory failure requiring BiPAP for respiratory supportsecondary to sepsis and possibly component of fluid overload/pneumonia in addition to an underlying COPD, currently improved 3 altered mentation secondary to above, improved 4 acute kidney injury possibly with an underlying chronic kidney disease, improving and the patient's creatinine is down to 2.27 and the patient had developed an acute on top of chronic kidney disease. 5 COPD 6 chronic atrial fibrillation with rapid entricular response currently on a combination of IV amiodarone and IV Cardizem 7 peripheral vascular disease, severe with chronic arterial ulcers in the lower extremities bilaterally with necrotic digits and necrotic once in the ankles with diminished pulses lower extremities bilaterally. 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 9 hyperlipidemia 10 hypertension 11 chronic history of alcoholism 12 anion gap metabolic acidosis, recovered 13 chronic anemia 14 chronic thrombocytopenia with acute drop in the platelet count, likely is consumptive secondary to sepsis, and the plated count is improving for now 15 PPN for nutritional support 16 diabetes mellitus currently on Levemir in addition to sliding scale coverage. Plan Continue broad-spectrum and switch this patient to 2 g of IV Rocephin and discontinue the Zosyn for now Continue amiodarone and Cardizem drip for rate control regarding the atrial fibrillation Swallow evaluation today PPN for nutritional support by the time the patient is cleared in regards to swallow Continue Levemir insulin along with a normal x-ray scale coverage We'll continue to follow make further recommendations based on his progress. Long-term prognosis poor baseline above-mentioned comorbidities.
[2019-07-10 12:37] LABS: Glucose,Whole Blood 320 mg/dL (75-99)
[2019-07-10] MEDS: FAT EMULSION 20% 250 ML in EMPTY BAG 1 BAG IV SCH (15:38)
--- NOTE | 2019-07-10 15:46 | PN ---
PROGRESS NOTE Patient is seen for followup for acute kidney injury, mainly ATN. Renal function has been improving. Patient's urine output had dropped for the last hour or so, although he has had good urine output previously. Since his creatinine continues to improve, I have asked the nurse to check the Ladd catheter. Currently patient is maintained on PPN. He denies any significant complaints. EXAMINATION: Today blood pressure was 136/88, heart rate 101 per minute, patient is afebrile. Examination of the heart S1, S2. Examination of the lungs, decreased breath sounds at bases. Abdomen is soft, nontender. Examination of the lower extremities shows peripheries are cool to touch. There are ischemic changes noted bilateral lower extremities with discoloration of the toes seen. HISTOLOGICAL ILLUSTRATOR exam grossly intact. LABS: Show sodium 138, potassium 4.0, serum creatinine down to 2.27, BUN 97, CO2 is 20. ASSESSMENT: 1. Acute kidney injury, ATN currently improving. 2. Disproportionately elevated BUN secondary to steroids. 3. Decreased urine output noted over the last couple of hours. I have asked the nurse to check for mechanical issues as patient's skin renal function has been improving. 4. Escherichia coli bacteremia and urinary tract infection. 5. Sepsis from UTI. 6. Atrial fibrillation with RVR, on amiodarone drip. 7. Left hydronephrosis, being followed by Urology with no plans of intervention. 8. Cardiomyopathy, ejection fraction of 30%-35%. PLAN: Check Ladd catheter for mechanical issues. Repeat labs in a.m. MMODL / IJN: [id number] /
[2019-07-10] MEDS: SODIUM CHLORIDE 0.9% 1,000 ML IV SCH (16:36)
--- NOTE | 2019-07-10 17:03 | P.PN ---
Subjective Progress Note Date: 07/10/19 Principal diagnosis: Altered mental status Patient was seen and examined. No acute events overnight. Patient currently being treated for E. coli UTI sepsis with hydronephrosis. Also has respiratory failure secondary to CHF, COPD and possible pneumonia. Also in A. fib with RVR. Has history of PAD with necrotic lower extremity wounds. His mentation is improved since yesterday. He is able to follow commands and answer questions in an appropriate manner. He is currently off of BiPAP and is saturating low 90s on 3L nasal cannula. He continues to be on amiodarone drip. He is receiving Zosyn for E. coli bacteremia. Currently on parenteral nutrition. Objective - Vital Signs Vital signs: Vital Signs Temp 98.6 F 07/10/19 16:00 Pulse 100 07/10/19 16:00 Resp 23 07/10/19 16:00 BP 128/84 07/10/19 16:00 Pulse Ox 97 07/10/19 16:00 Intake & Output 07/09/19 07/10/19 07/10/19 18:59 06:59 18:59 Intake Total 1976 3291.25 1312 Output Total 1210 1330 1815 Balance 766 1961.25 -503 Weight 89.9 kg 89.9 kg Intake: IV 205 1355 1142 Fat Emulsion 20% 250 ml 42 In Empty Bag 1 bag @ 21 mls/hr IV DAILY@1600 [facility] Rx#:[id number] Mvi, Adult No.4 with Vit 1155 1050 K 10 ml Trace (Conc-1Ml/ Dose) 1 ml Sodium Acetate 30 meq Potassium Chloride 20 meq Calcium Gluconate 1 gm In Amino Acid 4.25%-D10w 1,000 ml @ 105 mls/hr IV .BY DURATION [facility] Rx#: [id number] Mvi, Adult No.4 with Vit 105 K 10 ml Trace (Conc-1Ml/ Dose) 1 ml Sodium Acetate 30 meq Potassium Chloride 20 meq Calcium Gluconate 1 gm In Amino Acid 4.25%-D10w 1,000 ml @ 50 mls/hr IV .[id number] [facility] Rx#:[id number] Piperacillin-Tazobactam 3 100 100 .375 gm In Sodium Chloride 0.9% 100 ml @ 25 mls/hr IVPB Q12HR [facility] Rx #:[id number] Potassium Chloride 10 meq 100 In Water For Injection 1 100ml.bag @ 100 mls/hr IVPB Q1HR [facility] Rx#: [id number] cefTRIAXone 2 gm In 50 Sodium Chloride 0.9% 50 ml @ 100 mls/hr IVPB Q24HR [facility] Rx#:[id number] Intake, IV Titration 1770 1935.25 170 Amount Amiodarone 300 mg In 250 170 Dextrose 5% in Water 250 ml @ 0.5 MG/MIN 25 mls/hr IV .Q10H [facility] Rx#: [id number] Diltiazem 125 mg In 125 Sodium Chloride 0.9% 100 ml @ 10 MG/HR 10 mls/hr IV .[id number] [facility] Rx#: [id number] Mvi, Adult No.4 with Vit 1046 551.25 K 10 ml Trace (Conc-1Ml/ Dose) 1 ml Sodium Acetate 30 meq Potassium Chloride 20 meq Calcium Gluconate 1 gm In Amino Acid 4.25%-D10w 1,000 ml @ 105 mls/hr IV .BY DURATION [facility] Rx#: [id number] Potassium Chloride 10 meq 600 100 In Water For Injection 1 100ml.bag @ 100 mls/hr IVPB Q1HR [facility] Rx#: [id number] Sodium Acetate 30 meq 1035 Potassium Chloride 20 meq Calcium Gluconate 1 gm In Amino Acid 4.25%-D10w 1,000 ml @ 105 mls/hr IV .BY DURATION [facility] Rx#: [id number] Output: Urine 1210 1330 1815 Other: Voiding Method Indwelling Catheter Indwelling Catheter Indwelling Catheter - Exam General: [Appears toxic older than stated age], [no distress], [appears at stated age] Derm: [warm], [dry] Head: [atraumatic], [normocephalic], [symmetric] Eyes: [EOMI], [no lid lag], [anicteric sclera] Mouth: [no lip lesion], [mucus membranes moist] Cardiovascular: [S1S2 irregular], [no murmur], [unable to palpate DP or PT pulses in either extremities], Lungs: [Decreased breath sounds bilateral], [no rhonchi, no rales] , [no accessory muscle use] Abdominal: [soft], [ nontender to palpation], [distended], [no appreciable organomegaly] Ext: [no gross muscle atrophy], [no edema], [necrotic, ulcerated wounds in bilateral feet and toes], [scattered ecchymosis in all 4 extremities] Neuro: [Moving all 4 extremities] Psych: [Alert and oriented 1-2] - Labs CBC & Chem 7: 07/10/19 03:53 07/10/19 12:58 Labs: Abnormal Lab Results - Last 24 Hours (Table) 07/09/19 07/09/19 07/09/19 Range/Units 18:05 18:10 22:29 RBC (4.30-5.90) m/uL Hgb (13.0-17.5) gm/dL Hct (39.0-53.0) % MCV (80.0-100.0) fL MCH (25.0-35.0) pg MCHC (31.0-37.0) g/dL RDW (11.5-15.5) % Plt Count (150-450) k/uL Macrocytosis Carbon Dioxide (22-30) mmol/L BUN (9-20) mg/dL Creatinine (0.66-1.25) mg/dL Glucose 336 H (74-99) mg/dL POC Glucose (mg/dL) 357 H 414 H (75-99) mg/dL Calcium (8.4-10.2) mg/dL AST (17-59) U/L ALT (4-49) U/L Total Protein (6.3-8.2) g/dL Albumin (3.5-5.0) g/dL 07/10/19 07/10/19 07/10/19 Range/Units 00:02 00:49 03:53 RBC (4.30-5.90) m/uL Hgb (13.0-17.5) gm/dL Hct (39.0-53.0) % MCV (80.0-100.0) fL MCH (25.0-35.0) pg MCHC (31.0-37.0) g/dL RDW (11.5-15.5) % Plt Count (150-450) k/uL Macrocytosis Carbon Dioxide 20 L (22-30) mmol/L BUN 97 H (9-20) mg/dL Creatinine 2.27 H (0.66-1.25) mg/dL Glucose 274 H (74-99) mg/dL POC Glucose (mg/dL) 271 H 304 H (75-99) mg/dL Calcium 8.0 L (8.4-10.2) mg/dL AST 82 H (17-59) U/L ALT 145 H (4-49) U/L Total Protein 5.5 L (6.3-8.2) g/dL Albumin 2.7 L (3.5-5.0) g/dL 07/10/19 07/10/19 07/10/19 Range/Units 03:53 05:16 08:54 RBC 2.34 L (4.30-5.90) m/uL Hgb 9.1 L (13.0-17.5) gm/dL Hct 31.2 L (39.0-53.0) % MCV 133.6 H (80.0-100.0) fL MCH 38.6 H (25.0-35.0) pg MCHC 29.0 L (31.0-37.0) g/dL RDW 19.0 H (11.5-15.5) % Plt Count 25 L (150-450) k/uL Macrocytosis Marked A Carbon Dioxide (22-30) mmol/L BUN (9-20) mg/dL Creatinine (0.66-1.25) mg/dL Glucose (74-99) mg/dL POC Glucose (mg/dL) 381 H 339 H (75-99) mg/dL Calcium (8.4-10.2) mg/dL AST (17-59) U/L ALT (4-49) U/L Total Protein (6.3-8.2) g/dL Albumin (3.5-5.0) g/dL 07/10/19 07/10/19 Range/Units 12:21 12:58 RBC (4.30-5.90) m/uL Hgb (13.0-17.5) gm/dL Hct (39.0-53.0) % MCV (80.0-100.0) fL MCH (25.0-35.0) pg MCHC (31.0-37.0) g/dL RDW (11.5-15.5) % Plt Count (150-450) k/uL Macrocytosis Carbon Dioxide (22-30) mmol/L BUN (9-20) mg/dL Creatinine (0.66-1.25) mg/dL Glucose 219 H (74-99) mg/dL POC Glucose (mg/dL) 320 H (75-99) mg/dL Calcium (8.4-10.2) mg/dL AST (17-59) U/L ALT (4-49) U/L Total Protein (6.3-8.2) g/dL Albumin (3.5-5.0) g/dL Microbiology - Last 24 Hours (Table) 07/07/19 09:19 Blood Culture - Preliminary Blood No Growth after 72 hours Assessment and Plan Assessment: Sepsis with E. coli UTI and bacteremia Acute renal failure with Left-sided hydronephrosis Acute metabolic encephalopathy Acute hypoxic respiratory failure secondary to COPD, CHF and possible pneumonia rule out COVID Atrial fibrillation with RVR Steroid-induced hyperglycemia Thrombocytopenia Troponin elevation Severe PAD History of alcohol abuse Blood culture and urine culture positive for E. coli. Repeat blood cultures negative at 72 hours. Plans: Continue Zosyn. Follow repeat blood cultures. Infectious disease on board. BUN 112-97, creatinine 2.76-2.27. Also with left-sided hydronephrosis. Plans: Urology evaluated patient for hydronephrosis, found to be mild in nature with nothing further from a urologic standpoint. Avoid nephrotoxins. Repeat BMP tomorrow morning. Nephrology following. His metabolic encephalopathy is likely related to sepsis with E. coli bacteremia along with acute hypoxic respiratory failure. This morning chest x-ray shows chronic parenchymal changes with mild interstitial density and patchy bibasilar opacity. Plans: Continue Pulmicort. Continue formoterol. DuoNeb scheduled and as needed for shortness of breath and wheezing. Continue Solu-Medrol. O2 per NC to maintain O2 saturation greater than 92%. Low threshold for intubation. Pulmonology on board. Heart rate irregular in the 100s. Plans: Continue amiodarone drip. Continue diltiazem drip. Hold anticoagulation for thrombocytopenia. Cardiology on board. [id number] glucose 219. Plans: Levemir 20 units at bedtime. Insulin sliding scale. Regular Accu-Cheks. Hypoglycemic precautions. Platelet count of 25. Also with chronic alcohol abuse. Plans: No obvious signs of gross bleeding. Hemoglobin remaining stable at 9.8. Repeat CBC tomorrow morning. Transfuse if platelet count less than 10. Troponin 0.061, 0.105, 0.125. Likely demand ischemia from A. fib with RVR also sepsis. Acute coronary syndrome ruled out. Plans: Follow cardiology recommendations. Plans: We'll need evaluation by vascular surgery when stable. Plans: Continue to monitor for signs and symptoms of withdrawal. [Patient admitted for E. coli bacteremia and sepsis. Found to have acute renal failure. Also hypoxic respiratory failure from COPD, CHF and possible PNA. Prognosis is guarded.]
[2019-07-10] MEDS: PIPERACILLIN-TAZOBACTAM 3.375 GM in SODIUM CHLORIDE 0.9% 100 ML IVPB SCH (20:01)
[2019-07-10] MEDS: INSULIN DETEMIR (LEVEMIR) 100 UNIT/ML SYR SQ SCH (20:57)
--- NOTE | 2019-07-10 22:38 | PN ---
PROGRESS NOTE DATE OF SERVICE: 07/10/2019 REASON FOR FOLLOWUP: 1. E coli UTI and bacteremia. 2. Aspiration pneumonia. INTERVAL HISTORY: The patient is currently afebrile. He seems to be breathing comfortably on nasal cannula oxygen. The patient denies having any chest pain. He did have a cough. No sputum. No nausea, no vomiting. No abdominal pain or diarrhea. PHYSICAL EXAMINATION: Blood pressure 137/81 with a pulse of 109, temperature 98. He is 96% on 2 L nasal cannula. General description is an elderly male lying in bed in no distress. RESPIRATORY SYSTEM: Unlabored breathing with decreased breath sounds at the base. No wheeze. HEART: S1, S2. Regular rate and rhythm. ABDOMEN: Soft. No tenderness. EXTREMITIES: Some trace edema of feet. LABS: Hemoglobin is 9.1, white count 9.9, BUN of 27, creatinine 2.27. DIAGNOSTIC IMPRESSION AND PLAN: Patient with Escherichia coli bacteremia secondary to urinary source in this patient who also has a component of aspiration pneumonia. The patient seems to have shown some clinical response to Zosyn; hence recommend keeping the patient on Zosyn him to Rocephin to cover for the polymicrobial organisms throughout the urine associated with aspiration pneumonia and monitor his clinical course closely. MMODL / IJN: [id number] /
[2019-07-11] MEDS: INSULIN ASPART (NovoLOG) 100 UNIT/ML VIAL SQ SCH ×7 (00:49→22:11)
[2019-07-11] MEDS: THIAMINE 100 MG/ML 2 ML VIAL IVP SCH ×3 (00:51→23:10)
[2019-07-11 05:07] LABS: Anisocytosis Slight; HCT 28.7 % (39.0-53.0); HGB 9.9 gm/dL (13.0-17.5); Hypochromasia Moderate; MCHC 34.4 g/dL (31.0-37.0); MCV 129.4 fL (80.0-100.0); Macrocytosis Marked; Mean Platelet Volume 16.1; RBC 2.22 m/uL (4.30-5.90); RDW 19.2 % (11.5-15.5)
[2019-07-11 05:08] LABS: Ionized Calcium 4.3 mg/dL (4.5-5.3); MCH 44.5 pg (25.0-35.0)
[2019-07-11 05:11] LABS: Calcium 7.8 mg/dL (8.4-10.2); Magnesium 1.4 mg/dL (1.6-2.3); Phosphorus 2.6 mg/dL (2.5-4.5); Potassium 3.1 mmol/L (3.5-5.1)
[2019-07-11 05:22] LABS: Lymphocytes # (M) 0.73 k/uL (1.0-4.8); Monocytes # (M) 0.42 k/uL (0-1.0); Neutrophils # (M) 9.36 k/uL (1.3-7.7); Neutrophils % (M) 90 %; Nucleated Red Blood Cells 2 /100 WBC (0-0); Total Cells Counted 200; WBC 10.4 k/uL (3.8-10.6)
[2019-07-11 05:23] LABS: Platelet Count 51 k/uL (150-450); Polychromasia Present
[2019-07-11] MEDS: AMIODARONE 300 MG in DEXTROSE 5% IN WATER 250 ML IV SCH ×2 (05:54)
[2019-07-11] MEDS: DILTIAZEM 125 MG in SODIUM CHLORIDE 0.9% 100 ML IV SCH (05:54)
[2019-07-11] MEDS: POTASSIUM CHLORIDE 10 MEQ in WATER FOR INJECTION 1 100ML.BAG IVPB SCH ×4 (06:40→13:38)
--- NOTE | 2019-07-11 08:18 | XR ---
EXAMINATION TYPE: XR chest 1V portable DATE OF EXAM: 07/11/2019 COMPARISON: 07/10/2019 HISTORY: Assess lungs, exertional dyspnea TECHNIQUE: Single frontal view of the chest is obtained. FINDINGS: New patchy opacity at the right lung base with improved aeration of the left lung base. Pa tient's chin slightly obscures the lung apices. There are low lung volumes. Enlarged cardiomediastina l silhouette with moderate degenerative change of the spine. IMPRESSION: New patchy right basilar opacity may represent atelectasis given its short-term developm ent. Improved aeration of the left lung base.
[2019-07-11] MEDS ORDERED: 1: MVI, ADULT NO.4 WITH VIT K 10 ML, TRACE (CONC-1ML/DOSE) 1 ML, SODIUM ACETATE 30 MEQ, IV SCH ×7 (08:30)
[2019-07-11] MEDS: 1: MVI, ADULT NO.4 WITH VIT K 10 ML, TRACE (CONC-1ML/DOSE) 1 ML, SODIUM ACETATE 30 MEQ, IV SCH ×13 (08:34→21:16)
[2019-07-11] MEDS: FORMOTEROL FUMARATE 20 MCG/2 ML NEBU INHALATION SCH ×2 (08:55→20:24)
[2019-07-11] MEDS: BUDESONIDE 1 MG/2 ML NEBU INHALATION SCH ×2 (08:55→20:24)
[2019-07-11] MEDS: IPRATROPIUM-ALBUTEROL 3 ML NEB INHALATION SCH ×4 (08:55→20:24)
--- NOTE | 2019-07-11 08:58 | P.PN ---
Subjective Progress Note Date: 07/11/19 Principal diagnosis: paroxysmal atrial fibrillation This is a 73-year-old gentleman with extensive past medical history consistent for thrombocytopenia, chronic kidney disease, as well as multiple comorbid conditions, was brought to the emergency room by his daughter because the patient was not feeling well. Currently the patient is lethargic and the history was taken from the chart. Also the history was taken from the nurse at bedside. The patient was brought to the emergency room by his daughter. Apparently he fell at home several times. He was drinking alcohol excessively. No indication of any symptoms of chest pain or chest discomfort or shortness of breath. No indication of any history of coronary artery disease or congestive heart failure or cardiac arrhythmia. When the patient was seen in the emergency department he was quite hypotensive and required IV fluid excessively. Also he was found to be in acute renal failure. Nephrology is on the case. The patient was seen today, July 102019. Overall he is doing better clinically. The fatty his mentation has improved significantly and he is responding to questions with appropriate answers. His platelet has been improving as well. He continues to be in atrial fibrillation was controlled hea rt rate. He might be able to swallow pills later on today and we'll stop the IV medication and start him on oral medications. Continue holding orders anticoagulation at this point. Also his creatinine has been trending in the right direction. Objective - Vital Signs Vital signs: Vital Signs Temp 97.9 F 07/11/19 08:00 Pulse 117 H 07/11/19 08:00 Resp 24 07/11/19 08:00 BP 132/83 07/11/19 08:00 Pulse Ox 96 07/11/19 08:00 Intake & Output 07/10/19 07/11/19 07/11/19 18:59 06:59 18:59 Intake Total 2610 1696.083 105 Output Total 2115 985 100 Balance 495 711.083 5 Weight 89.9 kg 85.4 kg Intake: IV 1394 1449 105 Fat Emulsion 20% 250 ml 84 189 In Empty Bag 1 bag @ 21 mls/hr IV DAILY@1600 COUNTS INCLUDE 234 BEDS AT [facility] Rx#:[id number] Mvi, Adult No.4 with Vit 1260 1260 105 K 10 ml Trace (Conc-1Ml/ Dose) 1 ml Sodium Acetate 30 meq Potassium Chloride 20 meq Calcium Gluconate 1 gm In Amino Acid 4.25%-D10w 1,000 ml @ 105 mls/hr IV .BY DURATION [facility] Rx#: [id number] cefTRIAXone 2 gm In 50 Sodium Chloride 0.9% 50 ml @ 100 mls/hr IVPB Q24HR [facility] Rx#:[id number] Intake, IV Titration 1216 247.083 Amount Amiodarone 300 mg In 170 Dextrose 5% in Water 250 ml @ 0.5 MG/MIN 25 mls/hr IV .Q10H [facility] Rx#: [id number] Amiodarone 300 mg In 247.083 Dextrose 5% in Water 250 ml @ 0.5 MG/MIN 25 mls/hr IV .Q10H [facility] Rx#: [id number] Mvi, Adult No.4 with Vit 1046 K 10 ml Trace (Conc-1Ml/ Dose) 1 ml Sodium Acetate 30 meq Potassium Chloride 20 meq Calcium Gluconate 1 gm In Amino Acid 4.25%-D10w 1,000 ml @ 105 mls/hr IV .BY DURATION [facility] Rx#: [id number] Output: Urine 2115 985 100 Other: Voiding Method Indwelling Catheter Indwelling Catheter - Constitutional General appearance: Present: no acute distress - Respiratory Respiratory: bilateral: diminished - Cardiovascular Rhythm: irregularly irregular Heart sounds: normal: S1, S2 - Labs CBC & Chem 7: 07/11/19 04:04 07/11/19 08:10 Labs: Abnormal Lab Results - Last 24 Hours (Table) 07/10/19 07/10/19 07/10/19 Range/Units 12:21 12:58 16:43 RBC (4.30-5.90) m/uL Hgb (13.0-17.5) gm/dL Hct (39.0-53.0) % MCV (80.0-100.0) fL MCH (25.0-35.0) pg RDW (11.5-15.5) % Plt Count (150-450) k/uL Neutrophils # (Manual) (1.3-7.7) k/uL Lymphocytes # (Manual) (1.0-4.8) k/uL Nucleated RBCs (0-0) /100 WBC Macrocytosis Potassium (3.5-5.1) mmol/L BUN (9-20) mg/dL Creatinine (0.66-1.25) mg/dL Glucose 219 H 207 H (74-99) mg/dL POC Glucose (mg/dL) 320 H (75-99) mg/dL Calcium (8.4-10.2) mg/dL Ionized Calcium Joseline (4.5-5.3) mg/dL Magnesium (1.6-2.3) mg/dL Triglycerides (<150) mg/dL 07/10/19 07/10/19 07/11/19 Range/Units 20:11 23:59 04:04 RBC (4.30-5.90) m/uL Hgb (13.0-17.5) gm/dL Hct (39.0-53.0) % MCV (80.0-100.0) fL MCH (25.0-35.0) pg RDW (11.5-15.5) % Plt Count (150-450) k/uL Neutrophils # (Manual) (1.3-7.7) k/uL Lymphocytes # (Manual) (1.0-4.8) k/uL Nucleated RBCs (0-0) /100 WBC Macrocytosis Potassium 3.1 L (3.5-5.1) mmol/L BUN 85 H (9-20) mg/dL Creatinine 1.86 H (0.66-1.25) mg/dL Glucose 230 H 191 H 159 H (74-99) mg/dL POC Glucose (mg/dL) (75-99) mg/dL Calcium 7.8 L (8.4-10.2) mg/dL Ionized Calcium Joseline 4.3 L (4.5-5.3) mg/dL Magnesium 1.4 L (1.6-2.3) mg/dL Triglycerides 536 H (<150) mg/dL 07/11/19 07/11/19 Range/Units 04:04 08:10 RBC 2.22 L (4.30-5.90) m/uL Hgb 9.9 L (13.0-17.5) gm/dL Hct 28.7 L (39.0-53.0) % MCV 129.4 H (80.0-100.0) fL MCH 44.5 H (25.0-35.0) pg RDW 19.2 H (11.5-15.5) % Plt Count 51 L D (150-450) k/uL Neutrophils # (Manual) 9.36 H (1.3-7.7) k/uL Lymphocytes # (Manual) 0.73 L (1.0-4.8) k/uL Nucleated RBCs 2 H (0-0) /100 WBC Macrocytosis Marked A Potassium (3.5-5.1) mmol/L BUN (9-20) mg/dL Creatinine (0.66-1.25) mg/dL Glucose 117 H (74-99) mg/dL POC Glucose (mg/dL) (75-99) mg/dL Calcium (8.4-10.2) mg/dL Ionized Calcium Joseline (4.5-5.3) mg/dL Magnesium (1.6-2.3) mg/dL Triglycerides (<150) mg/dL Microbiology - Last 24 Hours (Table) 07/07/19 09:19 Blood Culture - Preliminary Blood No Growth after 72 hours Assessment and Plan Assessment: assessment Acute renal failure severe thrombocytopenia Paroxysmal atrial fibrillation Respiratory failure Possible pneumonia Plan Continue the current medical regimen including the current IV medication Switch the patient to be on medication down the line Continue holding oral anticoagulation
[2019-07-11] MEDS: AMIODARONE 200 MG TAB PO SCH ×4 (09:29→22:50)
[2019-07-11] MEDS: PIPERACILLIN-TAZOBACTAM 3.375 GM in SODIUM CHLORIDE 0.9% 100 ML IVPB SCH ×3 (09:30→23:09)
[2019-07-11] MEDS: METOPROLOL TARTRATE 25 MG TAB PO SCH ×4 (09:30→22:50)
[2019-07-11] MEDS: PANTOPRAZOLE 40 MG/10 ML VIAL IV SCH (09:30)
[2019-07-11 12:09] LABS: Glucose,Whole Blood 189 mg/dL (75-99)
--- NOTE | 2019-07-11 13:09 | P.PN ---
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 coli sepsis secondary to UTI. The patient subsequently went into hypoxic respiratory failure requiring BiPAP for respiratory support with a component of fluid overload and possible pneumonia. In addition, the patient had acute kidney injury, atrial fibrillation with rapid ventricular response. He is known to have also peripheral vascular disease. The patient was placed on BiPAP for respiratory support and he was kept in the intensive care unit. In terms of his E. coli sepsis, urine culture and the blood culture was positive and the patient is still receiving IV antibiotics and the patient is currently on IV Zosyn. He is afebrile and he is hemodynamically stable on no pressors and the patient is not requiring any pressors. In fact, the patient is on amiodarone drip at 0.5 mg per minute and addition to Cardizem at 10 mg an hour for rate control regarding his atrial fibrillation. His echocardiogram was completed on 07/05/2019 and the patient was found to have a impaired LV function with an ejection fraction of 30-35% and mildly enlarged RV with a right-sided pulmonary artery pressure is estimated to be around 46 mmHg. His renal function was also abnormal. The patient developed an acute kidney injury, admission with a crea tinine of 4.6 which gradually improved during the course of his treatment with a decline in the creatinine levels. The patient also had a anion gap metabolic acidosis with gradually recovered. Nephrology is on the case. Ultrasound the kidneys did not show any significant hydronephrosis on this patient. The chest x-ray showed left basilar consolidation right perihilar opacity consistent with multifocal atelectasis/pneumonia. He is receiving PPN for nutritional support. He does have also comorbidities including hypertension, hyperlipidemia, COPD and addition to chronic alcohol use. On today's evaluation of 07/10/2019, the patient is lethargic and weak yet awake and following commands and answering questions appropriately. He is on 3 L of oxygen by nasal cannula. He is not utilizing his BiPAP for now. He remains in atrial fibrillation. He remains on amiodarone maintenance of 0.5 mg per minute. He is on IV Zosyn. His thrombocytopenia is improving. He is receiving PPN for nutritional support. He does have severe peripheral vascular disease along with chronic arterial necrot ic ulcers in his toes bilaterally in addition to some necrotic wounds in the ankles bilaterally worse on the right. He remains afebrile. On today's evaluation of 07/11/2019 the patient is essentially same yesterday. He is lethargic. He is weak. He follows some simple commands. He seems to be appropriate however profoundly weak. He passed a swallow evaluation. Nevertheless, he is oral intake is considered to be low and the patient will be kept on PPN for nutritional support. The patient's IV medication will be switched over to oral as the patient is on amiodarone and Cardizem drip for his atrial fibrillation. Is currently on 2 L of oxygen by nasal cannula. Urine culture came back positive for E. coli. For now, the patient is on oral amiodarone regarding his atrial fibrillation 400 mg by mouth twice a day. The patient is on Toprol 25 mg twice a day. He is receiving Levemir insulin 20 units daily at bedtime. Discontinuation of the IV Solu Medrol helped his blood sugar control. Nevertheless, the patient on PPN which is obviously contributing to his blood sugar elevation. No other significant events overnight. His resting comfortably in bed. Objective - Vital Signs Vital signs: Vital Signs Temp 97.9 F 07/11/19 08:00 Pulse 111 H 07/11/19 12:13 Resp 25 H 07/11/19 11:00 BP 141/86 07/11/19 11:00 Pulse Ox 98 07/11/19 11:00 Intake & Output 07/10/19 07/11/19 07/11/19 18:59 06:59 18:59 Intake Total 2610 1696.083 825 Output Total 2115 985 375 Balance 495 711.083 450 Weight 89.9 kg 85.4 kg Intake: IV 1394 1449 825 Fat Emulsion 20% 250 ml 84 189 In Empty Bag 1 bag @ 21 mls/hr IV DAILY@1600 [facility] Rx#:[id number] Mvi, Adult No.4 with Vit 1260 1260 525 K 10 ml Trace (Conc-1Ml/ Dose) 1 ml Sodium Acetate 30 meq Potassium Chloride 20 meq Calcium Gluconate 1 gm In Amino Acid 4.25%-D10w 1,000 ml @ 105 mls/hr IV .BY DURATION [facility] Rx#: [id number] Potassium Chloride 10 meq 300 In Water For Injection 1 100ml.bag @ 100 mls/hr IVPB Q1HR [facility] Rx#: [id number] cefTRIAXone 2 gm In 50 Sodium Chloride 0.9% 50 ml @ 100 mls/hr IVPB Q24HR [facility] Rx#:[id number] Intake, IV Titration 1216 247.083 Amount Amiodarone 300 mg In 170 Dextrose 5% in Water 250 ml @ 0.5 MG/MIN 25 mls/hr IV .Q10H [facility] Rx#: [id number] Amiodarone 300 mg In 247.083 Dextrose 5% in Water 250 ml @ 0.5 MG/MIN 25 mls/hr IV .Q10H [facility] Rx#: [id number] Mvi, Adult No.4 with Vit 1046 K 10 ml Trace (Conc-1Ml/ Dose) 1 ml Sodium Acetate 30 meq Potassium Chloride 20 meq Calcium Gluconate 1 gm In Amino Acid 4.25%-D10w 1,000 ml @ 105 mls/hr IV .BY DURATION [facility] Rx#: [id number] Output: Urine 2115 985 375 Other: Voiding Method Indwelling Catheter Indwelling Catheter - Exam Gen. appearance the patient is calm and comfortable likely distress, he looks and appears to be quite sick and debilitated. Head exam was generally normal. There was no scleral icterus or corneal arcus. Mucous membranes were moist. Neck was supple and without jugular venous distension, thyromegaly, or carotid bruits. Carotids were easily palpable bilaterally. There was no adenopathy. heart sounds are irregular consistent with atrial fibrillat.Cardiac exam revealed the PMI to be normally situated and sized. The rhythm was regular and no extrasystoles were noted during several minutes of auscultation. The first and second heart sounds were normal and physiologic splitting of the second heart sound was noted. There were no murmurs, rubs, clicks, or gallops. Lungs sounds are diminished in lung bases along with coarse rhonchi and some bibasilar crackles are present. Abdominal exam revealed normal bowel sounds. The abdomen was soft, non-tender, and without masses, organomegaly, or appreciable enlargement of the abdominal aorta. Extremities the patient is known to have peripheral vascular disease and has significant ulceration in nonhealing wounds of the feet and the toes. There is significant acrocyanosis. There is also some mottling of the lower extremities. Skin reveals arterial necrotic ulcers in his toes bilaterally where several toes are necrotic and the patient has necrotic ankle wounds worse on the right lateral aspect of the ankle as well as chronic ecchymotic areas throughout his body. Pulses are diminished in the lower extremity is bilaterally, barely obtained by Doppler signals. Neurologically the patient is having global weakness and there is no focal neurological deficit at this point in time. - Labs CBC & Chem 7: 07/11/19 04:04 07/11/19 08:10 Labs: Abnormal Lab Results - Last 24 Hours (Table) 07/10/19 07/10/19 07/10/19 Range/Units 12:58 16:43 20:11 RBC (4.30-5.90) m/uL Hgb (13.0-17.5) gm/dL Hct (39.0-53.0) % MCV (80.0-100.0) fL MCH (25.0-35.0) pg RDW (11.5-15.5) % Plt Count (150-450) k/uL Neutrophils # (Manual) (1.3-7.7) k/uL Lymphocytes # (Manual) (1.0-4.8) k/uL Nucleated RBCs (0-0) /100 WBC Macrocytosis Potassium (3.5-5.1) mmol/L BUN (9-20) mg/dL Creatinine (0.66-1.25) mg/dL Glucose 219 H 207 H 230 H (74-99) mg/dL POC Glucose (mg/dL) (75-99) mg/dL Calcium (8.4-10.2) mg/dL Ionized Calcium Joseline (4.5-5.3) mg/dL Magnesium (1.6-2.3) mg/dL Triglycerides (<150) mg/dL 07/10/19 07/11/19 07/11/19 Range/Units 23:59 04:04 04:04 RBC 2.22 L (4.30-5.90) m/uL Hgb 9.9 L (13.0-17.5) gm/dL Hct 28.7 L (39.0-53.0) % MCV 129.4 H (80.0-100.0) fL MCH 44.5 H (25.0-35.0) pg RDW 19.2 H (11.5-15.5) % Plt Count 51 L D (150-450) k/uL Neutrophils # (Manual) 9.36 H (1.3-7.7) k/uL Lymphocytes # (Manual) 0.73 L (1.0-4.8) k/uL Nucleated RBCs 2 H (0-0) /100 WBC Macrocytosis Marked A Potassium 3.1 L (3.5-5.1) mmol/L BUN 85 H (9-20) mg/dL Creatinine 1.86 H (0.66-1.25) mg/dL Glucose 191 H 159 H (74-99) mg/dL POC Glucose (mg/dL) (75-99) mg/dL Calcium 7.8 L (8.4-10.2) mg/dL Ionized Calcium Joseline 4.3 L (4.5-5.3) mg/dL Magnesium 1.4 L (1.6-2.3) mg/dL Triglycerides 536 H (<150) mg/dL 07/11/19 07/11/19 Range/Units 08:10 12:06 RBC (4.30-5.90) m/uL Hgb (13.0-17.5) gm/dL Hct (39.0-53.0) % MCV (80.0-100.0) fL MCH (25.0-35.0) pg RDW (11.5-15.5) % Plt Count (150-450) k/uL Neutrophils # (Manual) (1.3-7.7) k/uL Lymphocytes # (Manual) (1.0-4.8) k/uL Nucleated RBCs (0-0) /100 WBC Macrocytosis Potassium (3.5-5.1) mmol/L BUN (9-20) mg/dL Creatinine (0.66-1.25) mg/dL Glucose 117 H (74-99) mg/dL POC Glucose (mg/dL) 189 H (75-99) mg/dL Calcium (8.4-10.2) mg/dL Ionized Calcium Joseline (4.5-5.3) mg/dL Magnesium (1.6-2.3) mg/dL Triglycerides (<150) mg/dL Microbiology - Last 24 Hours (Table) 07/07/19 09:19 Blood Culture - Preliminary Blood No Growth after 96 hours Assessment and Plan Plan: 1 sepsis with E. coli bacteremia secondary to an underlying UTI currently on IV Zosyn. The patient is hemodynamically stable on no pressors for now. 2 acute hypoxic respiratory failure requiring BiPAP for respiratory supportsecondary to sepsis and possibly component of fluid overload/pneumonia in addition to an underlying COPD, currently improved. Nevertheless, the chest x- ray from today shows a new patchy right basilar opacity probably representing some atelectasis. There is improvement in the aeration of the left lung base. 3 altered mentation secondary to above, improved, profoundly weak 4 acute kidney injury possibly with an underlying chronic kidney disease, improving and the patient's creatinine is down to 1.86 and the patient had devel oped an acute on top of chronic kidney disease. 5 COPD 6 chronic atrial fibrillation with rapid entricular response currently on a combination of IV amiodarone and IV Cardizem and these medications has been switched to oral as the patient is able to take oral medication. He'll be given oral amiodarone and Cardizem as stated earlier. He remains atrial fibrillation. Rate is under better control for now. The patient is on no anticoagulation as the patient is chronic thrombocytopenia subsequent drop in the platelet count is gradually improving is up to 51. 7 peripheral vascular disease, severe with chronic arterial ulcers in the lower extremities bilaterally with necrotic digits and necrotic once in the ankles with diminished pulses lower extremities bilaterally. 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 9 hyperlipidemia 10 hypertension 11 chronic history of alcoholism 12 anion gap metabolic acidosis, recovered 13 chronic anemia 14 chronic thrombocytopenia with acute drop in the platelet count, likely is consumptive secondary to sepsis, and the plated count is improving for now 15 PPN for nutritional support 16 diabetes mellitus currently on Levemir in addition to sliding scale coverage. Plan Continue TPN as the patient's oral intake does not meet his nutritional requirements Allow oral medications for now Continue IV Zosyn Levemir insulin for blood sugar control in addition to sliding scale coverage Monitor renal function which is improving Monitor plated count which is improving Continue rest of the supportive care. Long-term prognosis poor baseline above- mentioned comorbidities.
--- NOTE | 2019-07-11 14:02 | PN ---
PROGRESS NOTE Patient is seen for followup for acute kidney injury. Patient's renal function continues to improve. He is maintained on PPN. Serum creatinine is down to 1.86. Urine output is well maintained. On examination today, patient is comfortable. He feels stronger. He has had good urine output at about 60-100 mL an hour. He is undergoing swallowing eval, which is much improved. PHYSICAL EXAMINATION: On examination today, blood pressure is 123/80, heart rate 105 per minute, he is afebrile. Examination of the heart S1, S2. Examination of the lungs, decreased breath sounds at bases. Abdomen is soft, nontender. Examination of the lower extremities shows discoloration, peripheries are cool upper and lower extremities, especially the left hand. PERSONAL COACH exam grossly intact. LABS: Show hemoglobin 9.9, sodium 138, potassium 3.1, chloride 99, BUN 85, creatinine 1.86. ASSESSMENT: 1. Acute kidney injury ATN currently improving. 2. Hypokalemia associated with decreased oral intake, currently being replaced. 3. Escherichia coli bacteremia and urinary tract infection. 4. Sepsis from urinary tract infection. 5. Atrial fibrillation with RVR currently with controlled ventricular response. 6. Cardiomyopathy, ejection fraction 35% to 30%. 7. Left hydronephrosis with no plans for intervention, being followed by Urology. PLAN: Replace potassium. Encourage increased oral intake. MMODL / IJN: [id number] /
--- NOTE | 2019-07-11 15:29 | CDI ---
Documentation Clarification Form Date: 07/11/2019 02:48:45 PM From: Alena Breen RN CCDS Admit Date: 07/04/2019 02:43:00 AM Patient Name: Tyshawn Boudreaux Visit Number: [id number] Discharge Date: ATTENTION: The Clinical Documentation Specialists (CDI) and [facility] Coding Staff appreciate your assistance in clarifying documentation. Please respond to the clarification below the line at the bottom and electronically sign. The CDI & [facility] Coding staff will review the response and follow-up if needed. Please note: Queries are made part of the Legal Health Record. If you have any questions, please contact the author of this message via ITS. Dr. Froylan Arita Likely demand ischemia from A. fib with RVR also Sepsis Internal Medicine PN 07/08, 07/09 History/Risk Factors: 73-year-old male presents to the ED for confusion, feeling weak, lethargic, productive cough and shortness of breath. Medical history of CHF, HLD, HTN and Alcohol abuse. Clinical Indicators: Lab findings: Troponins 07/02 0.061; 07/03 0.0105; 07/03 0.125 07/02 Wbc 4.8, Band Neutrophils 2%, Lactate Dehydrogenase 1009, PBNP 85383, 07/02 EKG: Sinus tachycardia 07/02 Vital Signs: B/P: 90/49, HR: 109, HR: 9.2, RR: 30, SpO2: 85% room air 07/03 UA culture Escherichia coli 07/02 Blood culture Escherichia coli Other Clinical Indicators: Treatment: 07/03 Amiodarone Ivpb changed to oral 07/10; 07/02-07/03 0.9ns 3L bolus; 07/03 Zosyn Ivpb Q 12 changed to Q8, 07/03 Azithromycin Ivpb Daily d/cd 07/04, 07/09 Rocephin Ivpb x1 In your professional opinion, can you please clarify demand ischemia? Type 2 NC secondary to demand ischemia in the setting of A. Fib with RVR and Sepsis Type 2 NC secondary to demand ischemia due to (please specify) Other, please specify Unable to determine (Last Revision: May 2017) Type 2 NC secondary to demand ischemia in the setting of A. Fib with RVR and Sepsis MTDD
--- NOTE | 2019-07-11 15:38 | PN ---
PROGRESS NOTE DATE OF SERVICE: 07/11/2019 REASON FOR FOLLOWUP: Aspiration pneumonia and E coli bacteremia. INTERVAL HISTORY: The patient is currently afebrile, has been breathing comfortably. The patient denies having any chest pain or shortness of breath. Minimal cough. No nausea, vomiting, abdominal pain or diarrhea. PHYSICAL EXAMINATION: Blood pressure 137/91 with a pulse of 103, temperature 97.8. He is 98% on 2 L nasal cannula. General description is an elderly male lying in bed in no distress. RESPIRATORY SYSTEM: Unlabored breathing. Clear to auscultation anteriorly. HEART: S1, S2. Regular rate and rhythm. ABDOMEN: Soft. No tenderness. LABS: Hemoglobin is 9.9, white count 10.4, BUN of 85, creatinine 1.86. DIAGNOSTIC IMPRESSION AND PLAN: Patient with an Escherichia coli bacteremia secondary to the urinary source. Follow-up blood culture has been negative. Also concern for aspiration pneumonia. He is currently on Zosyn; to continue. Hopefully he can finish therapy with oral antibiotic on discharge. Monitor clinical course closely. MMODL / IJN: [id number] /
[2019-07-11 16:12] LABS: Glucose,Whole Blood 257 mg/dL (75-99)
[2019-07-11 16:54] LABS: Glucose,Whole Blood >600 mg/dL (75-99)
--- NOTE | 2019-07-11 17:44 | P.PN ---
Subjective Progress Note Date: 07/11/19 Principal diagnosis: Altered mental status Patient was seen and examined. No acute events overnight. Patient currently being treated for E. coli UTI sepsis with hydronephrosis. Also has respiratory failure secondary to CHF, COPD and possible pneumonia. Also in A. fib with RVR. Has history of PAD with necrotic lower extremity wounds. His mentation has considerably improved today compared to yesterday. He is able to follow commands and answer questions in an appropriate manner. He is currently off of BiPAP and is saturating low 90s on 2L nasal cannula. Amiodarone drip discontinued and patient started on oral amiodarone and metoprolol. He is receiving Zosyn for E. coli bacteremia. Currently on parenteral nutrition. Patient reports some pain in his hands bilaterally but has no other complaints. He denies any chest pain, shortness of breath or palpitations. No nausea or vomiting. No fever or chills. Objective - Vital Signs Vital signs: Vital Signs Temp 97.9 F 07/11/19 16:00 Pulse 101 H 07/11/19 17:00 Resp 24 07/11/19 17:00 BP 128/82 07/11/19 17:00 Pulse Ox 92 L 07/11/19 17:00 Intake & Output 07/10/19 07/11/19 07/11/19 18:59 06:59 18:59 Intake Total 2610 4882.264 4512 Output Total 2115 985 825 Balance 495 711.083 630 Weight 89.9 kg 85.4 kg Intake: IV 1394 1449 1455 Fat Emulsion 20% 250 ml 84 189 In Empty Bag 1 bag @ 21 mls/hr IV DAILY@1600 [facility] Rx#:[id number] Mvi, Adult No.4 with Vit 1260 1260 1155 K 10 ml Trace (Conc-1Ml/ Dose) 1 ml Sodium Acetate 30 meq Potassium Chloride 20 meq Calcium Gluconate 1 gm In Amino Acid 4.25%-D10w 1,000 ml @ 105 mls/hr IV .BY DURATION [facility] Rx#: [id number] Potassium Chloride 10 meq 300 In Water For Injection 1 100ml.bag @ 100 mls/hr IVPB Q1HR [facility] Rx#: [id number] cefTRIAXone 2 gm In 50 Sodium Chloride 0.9% 50 ml @ 100 mls/hr IVPB Q24HR [facility] Rx#:[id number] Intake, IV Titration 1216 247.083 Amount Amiodarone 300 mg In 170 Dextrose 5% in Water 250 ml @ 0.5 MG/MIN 25 mls/hr IV .Q10H [facility] Rx#: [id number] Amiodarone 300 mg In 247.083 Dextrose 5% in Water 250 ml @ 0.5 MG/MIN 25 mls/hr IV .Q10H [facility] Rx#: [id number] Mvi, Adult No.4 with Vit 1046 K 10 ml Trace (Conc-1Ml/ Dose) 1 ml Sodium Acetate 30 meq Potassium Chloride 20 meq Calcium Gluconate 1 gm In Amino Acid 4.25%-D10w 1,000 ml @ 105 mls/hr IV .BY DURATION [facility] Rx#: [id number] Output: Urine 3991 985 825 Other: Voiding Method Indwelling Catheter Indwelling Catheter Indwelling Catheter - Exam General: [Appears toxic older than stated age], [no distress], [appears at stated age] Derm: [warm], [dry] Head: [atraumatic], [normocephalic], [symmetric] Eyes: [EOMI], [no lid lag], [anicteric sclera] Mouth: [no lip lesion], [mucus membranes moist] Cardiovascular: [S1S2 irregular], [no murmur], [unable to palpate DP or PT pulses in either extremities], Lungs: [Decreased breath sounds bilateral], [no rhonchi, no rales] , [no acce ssory muscle use] Abdominal: [soft], [ nontender to palpation], [distended], [no appreciable organomegaly] Ext: [no gross muscle atrophy], [no edema], [necrotic, ulcerated wounds in bilateral feet and toes], [scattered ecchymosis in all 4 extremities] Neuro: [Moving all 4 extremities] Psych: [Alert and oriented 1-2] - Labs CBC & Chem 7: 07/11/19 04:04 07/11/19 08:10 Labs: Abnormal Lab Results - Last 24 Hours (Table) 07/10/19 07/10/19 07/11/19 Range/Units 20:11 23:59 04:04 RBC (4.30-5.90) m/uL Hgb (13.0-17.5) gm/dL Hct (39.0-53.0) % MCV (80.0-100.0) fL MCH (25.0-35.0) pg RDW (11.5-15.5) % Plt Count (150-450) k/uL Neutrophils # (Manual) (1.3-7.7) k/uL Lymphocytes # (Manual) (1.0-4.8) k/uL Nucleated RBCs (0-0) /100 WBC Macrocytosis Potassium 3.1 L (3.5-5.1) mmol/L BUN 85 H (9-20) mg/dL Creatinine 1.86 H (0.66-1.25) mg/dL Glucose 230 H 191 H 159 H (74-99) mg/dL POC Glucose (mg/dL) (75-99) mg/dL Calcium 7.8 L (8.4-10.2) mg/dL Ionized Calcium Joseline 4.3 L (4.5-5.3) mg/dL Magnesium 1.4 L (1.6-2.3) mg/dL Triglycerides 536 H (<150) mg/dL 07/11/19 07/11/19 07/11/19 Range/Units 04:04 08:10 12:06 RBC 2.22 L (4.30-5.90) m/uL Hgb 9.9 L (13.0-17.5) gm/dL Hct 28.7 L (39.0-53.0) % MCV 129.4 H (80.0-100.0) fL MCH 44.5 H (25.0-35.0) pg RDW 19.2 H (11.5-15.5) % Plt Count 51 L D (150-450) k/uL Neutrophils # (Manual) 9.36 H (1.3-7.7) k/uL Lymphocytes # (Manual) 0.73 L (1.0-4.8) k/uL Nucleated RBCs 2 H (0-0) /100 WBC Macrocytosis Marked A Potassium (3.5-5.1) mmol/L BUN (9-20) mg/dL Creatinine (0.66-1.25) mg/dL Glucose 117 H (74-99) mg/dL POC Glucose (mg/dL) 189 H (75-99) mg/dL Calcium (8.4-10.2) mg/dL Ionized Calcium Joseline (4.5-5.3) mg/dL Magnesium (1.6-2.3) mg/dL Triglycerides (<150) mg/dL 07/11/19 07/11/19 Range/Units 16:10 16:52 RBC (4.30-5.90) m/uL Hgb (13.0-17.5) gm/dL Hct (39.0-53.0) % MCV (80.0-100.0) fL MCH (25.0-35.0) pg RDW (11.5-15.5) % Plt Count (150-450) k/uL Neutrophils # (Manual) (1.3-7.7) k/uL Lymphocytes # (Manual) (1.0-4.8) k/uL Nucleated RBCs (0-0) /100 WBC Macrocytosis Potassium (3.5-5.1) mmol/L BUN (9-20) mg/dL Creatinine (0.66-1.25) mg/dL Glucose (74-99) mg/dL POC Glucose (mg/dL) 257 H >600 H (75-99) mg/dL Calcium (8.4-10.2) mg/dL Ionized Calcium Joseline (4.5-5.3) mg/dL Magnesium (1.6-2.3) mg/dL Triglycerides (<150) mg/dL Microbiology - Last 24 Hours (Table) 07/07/19 09:19 Blood Culture - Preliminary Blood No Growth after 96 hours Assessment and Plan Assessment: Sepsis with E. coli UTI and bacteremia Hypokalemia Acute renal failure with Left-sided hydronephrosis Acute metabolic encephalopathy Acute hypoxic respiratory failure secondary to COPD, CHF and possible pneumonia rule out COVID Atrial fibrillation with RVR Steroid-induced hyperglycemia Thrombocytopenia Troponin elevation Severe PAD History of alcohol abuse Blood culture and urine culture positive for E. coli. Repeat blood cultures negative at 96 hours. Plans: Continue Zosyn. Follow repeat blood cultures. Infectious disease on board. Potassium 3.1. Plans: Replace via protocol. Repeat BMP tomorrow morning. BUN 112-97-85, creatinine 2.76-2.27-1.86. Also with left-sided hydronephrosis. Plans: Urology evaluated patient for hydronephrosis, found to be mild in nature with nothing further from a urologic standpoint. Avoid nephrotoxins. Repeat BMP tomorrow morning. Nephrology following. His metabolic encephalopathy is likely related to sepsis with E. coli bacteremia along with acute hypoxic respiratory failure. This has been improving over the last 2 days. This morning chest x-ray shows chronic parenchymal changes with mild interstitial density and patchy bibasilar opacity. Plans: Continue Pulmicort. Continue formoterol. DuoNeb scheduled and as needed for shortness of breath and wheezing. Continue Solu-Medrol. O2 per NC to maintain O2 saturation greater than 92%. Low threshold for intubation. Pulmonology on board. Heart rate irregular in the 100s. Plans: Amiodarone drip and diltiazem drip discontinued for oral Metoprolol and amiodarone. Hold anticoagulation for thr ombocytopenia. Cardiology on board. [id number] glucose 257. Plans: Levemir 20 units at bedtime. Insulin sliding scale. Regular Accu-Cheks. Hypoglycemic precautions. Platelet count of 51. Also with chronic alcohol abuse. Plans: No obvious signs of gross bleeding. Hemoglobin remaining stable at 9.9. Repeat CBC tomorrow morning. Transfuse if platelet count less than 10. Troponin 0.061, 0.105, 0.125. Likely demand ischemia from A. fib with RVR also sepsis. Acute coronary syndrome ruled out. Plans: Follow cardiology recommendations. Plans: We'll need evaluation by vascular surgery when stable. Plans: Continue to monitor for signs and symptoms of withdrawal. [Patient admitted for E. coli bacteremia and sepsis, repeat blood culture negative so far. Found to have acute renal failure which is improving. Also hypoxic respiratory failure from COPD, CHF and possible PNA which is also improving. He is pending clinical improvement. Prognosis is guarded.]
[2019-07-11] MEDS: INSULIN DETEMIR (LEVEMIR) 100 UNIT/ML SYR SQ SCH ×3 (21:24→22:48)
[2019-07-12 05:06] LABS: Anisocytosis Slight; HCT 28.8 % (39.0-53.0); Hypochromasia Moderate; MCHC 31.3 g/dL (31.0-37.0); Macrocytosis Marked; WBC 10.5 k/uL (3.8-10.6)
[2019-07-12 05:07] LABS: Platelet Count 62 k/uL (150-450)
[2019-07-12 05:30] LABS: Potassium 3.8 mmol/L (3.5-5.1)
[2019-07-12 05:31] LABS: Calcium 7.7 mg/dL (8.4-10.2); Magnesium 1.7 mg/dL (1.6-2.3); Phosphorus 2.7 mg/dL (2.5-4.5)
[2019-07-12 05:33] LABS: Band Neutrophils % 2 %; Large Platelets Present; Lymphocytes # (M) 0.21 k/uL (1.0-4.8); Monocytes # (M) 0.63 k/uL (0-1.0); Neutrophils % (M) 90 %; Nucleated Red Blood Cells 0 /100 WBC (0-0); Total Cells Counted 100
[2019-07-12] MEDS ORDERED: Magnesium Replacement Protocol 1 EACH MISC MISCELLANE PRN (05:44)
[2019-07-12] MEDS ORDERED: Potassium Replacement Protocol 1 EACH MISC MISCELLANE PRN (05:44)
[2019-07-12] MEDS: MAGNESIUM SULFATE-D5W PMX 1 GM in DEXTROSE/WATER 1 100ML.BAG IVPB SCH ×2 (05:48→06:53)
[2019-07-12] MEDS: POTASSIUM CHLORIDE 10 MEQ in WATER FOR INJECTION 1 100ML.BAG IVPB SCH ×2 (05:55→06:53)
--- NOTE | 2019-07-12 06:39 | XR ---
EXAMINATION TYPE: XR chest 1V DATE OF EXAM: 07/12/2019 CLINICAL HISTORY: Difficulty breathing progress study. TECHNIQUE: Single AP portable upright view of the chest is obtained. COMPARISON: Chest x-ray from one day earlier and older studies. FINDINGS: Elevated right hemidiaphragm with persistent patchy bibasilar opacities. New right perihil ar opacity and developing left lateral midlung opacities. Upper lungs remain clear without pneumothor ax. Persistent cardiomegaly with atherosclerotic and ectatic thoracic aorta. Old left lateral mid rib fractures redemonstrated. Partial visualization of distal aortic stent graft noted. IMPRESSION: Persistent low lung volumes and cardiomegaly with patchy bibasilar atelectasis and/or inf iltrate and new bilateral midlungs acute infiltrates felt present. Correlate clinically.
[2019-07-12] MEDS: INSULIN ASPART (NovoLOG) 100 UNIT/ML VIAL SQ SCH ×4 (06:57→20:40)
[2019-07-12] MEDS ORDERED: POTASSIUM CHLORIDE 10 MEQ in WATER FOR INJECTION 1 100ML.BAG IVPB SCH (07:45)
[2019-07-12] MEDS: BUDESONIDE 1 MG/2 ML NEBU INHALATION SCH ×2 (08:03→20:11)
[2019-07-12] MEDS: IPRATROPIUM-ALBUTEROL 3 ML NEB INHALATION SCH ×4 (08:03→20:11)
[2019-07-12] MEDS: FORMOTEROL FUMARATE 20 MCG/2 ML NEBU INHALATION SCH ×2 (08:03→20:11)
--- NOTE | 2019-07-12 08:52 | P.PN ---
Progress Note - Text Progress Note Date: 07/11/19 Patient seen and examined 07/11/2019. Patient states feeling better. More alert. States pain in feet is stable. VSS Bilateral toe ulcerations and discoloration in feet stable. Bilateral hands with purple discoloration and mottling is stable. Palpable radial, femoral pulses bilaterally. DP and PT signal absent. Delayed capillary refill. 1. B/L toe ulcerations Kelly 5 peripheral arterial disease 2. Acute metabolic encephalopathy 3. Respiratory failure 4. CHICO 5. History of AAA with EVAR - No vascular intervention at this time. Allow patient to recover and then will plan aortogram with runoff at a later date.
[2019-07-12] MEDS: AMIODARONE 200 MG TAB PO SCH ×2 (09:50→20:41)
[2019-07-12] MEDS: METOPROLOL TARTRATE 25 MG TAB PO SCH (09:51)
[2019-07-12] MEDS: 1: MVI, ADULT NO.4 WITH VIT K 10 ML, TRACE (CONC-1ML/DOSE) 1 ML, SODIUM ACETATE 30 MEQ, IV SCH ×21 (09:51→20:31)
[2019-07-12] MEDS: PIPERACILLIN-TAZOBACTAM 3.375 GM in SODIUM CHLORIDE 0.9% 100 ML IVPB SCH ×3 (09:51→23:13)
[2019-07-12] MEDS: PANTOPRAZOLE 40 MG/10 ML VIAL IV SCH (09:51)
--- NOTE | 2019-07-12 10:06 | P.PN ---
Subjective Progress Note Date: 07/12/19 Principal diagnosis: paroxysmal atrial fibrillation This is a 73-year-old gentleman with extensive past medical history consistent for thrombocytopenia, chronic kidney disease, as well as multiple comorbid conditions, was brought to the emergency room by his daughter because the patient was not feeling well. Currently the patient is lethargic and the history was taken from the chart. Also the history was taken from the nurse at bedside. The patient was brought to the emergency room by his daughter. Apparently he fell at home several times. He was drinking alcohol excessively. No indication of any symptoms of chest pain or chest discomfort or shortness of breath. No indication of any history of coronary artery disease or congestive heart failure or cardiac arrhythmia. When the patient was seen in the emergency department he was quite hypotensive and required IV fluid excessively. Also he was found to be in acute renal failure. Nephrology is on the case. The patient was seen today, 07/12/2019. He was converted to normal sinus mechanism. The pressure continues to be slightly elevated. I'm going to increase the dose of metoprolol on him. Continue the current dose of amiodarone. Hold any oral anticoagulation at this point in view of the thrombocytopenia. His platelet still low but it has been improving. Objective - Vital Signs Vital signs: Vital Signs Temp 99 F 07/12/19 04:00 Pulse 80 07/12/19 07:00 Resp 24 07/12/19 07:00 BP 152/87 07/12/19 07:00 Pulse Ox 96 07/12/19 07:00 Intake & Output 07/11/19 07/12/19 07/12/19 18:59 06:59 18:59 Intake Total 1560 1620 1362 Output Total 925 925 145 Balance 066 553 5514 Weight 88.6 kg Intake: IV 1560 1620 315 0.9 NS 110 10 Magnesium Sulfate-D5w Pmx 100 100 1 gm In Dextrose/Water 1 100ml.bag @ 100 mls/hr IVPB Q1H [facility] Rx#: [id number] Mvi, Adult No.4 with Vit 1260 1260 105 K 10 ml Trace (Conc-1Ml/ Dose) 1 ml Sodium Acetate 30 meq Potassium Chloride 20 meq Calcium Gluconate 1 gm In Amino Acid 4.25%-D10w 1,000 ml @ 105 mls/hr IV .BY DURATION [facility] Rx#: [id number] Piperacillin-Tazobactam 3 50 .375 gm In Sodium Chloride 0.9% 100 ml @ 25 mls/hr IVPB Q12HR [facility] Rx #:[id number] Potassium Chloride 10 meq 100 In Water For Injection 1 100ml.bag @ 100 mls/hr IVPB Q1H [facility] Rx#: [id number] Potassium Chloride 10 meq 300 100 In Water For Injection 1 100ml.bag @ 100 mls/hr IVPB Q1HR [facility] Rx#: [id number] Intake, IV Titration 1047 Amount Sodium Acetate 30 meq 1047 Potassium Chloride 40 meq Calcium Gluconate 1 gm Magnesium Sulfate gm 1 gm In Amino Acid 4.25%-D10w 1,000 ml @ 105 mls/hr IV .BY DURATION [facility] Rx#: [id number] Output: Urine 925 925 145 Other: Voiding Method Indwelling Catheter Indwelling Catheter - Constitutional General appearance: Present: no acute distress - Respiratory Respiratory: bilateral: CTA - Cardiovascular Rhythm: regular Heart sounds: normal: S1, S2 - Labs CBC & Chem 7: 07/12/19 04:54 07/12/19 04:54 Labs: Abnormal Lab Results - Last 24 Hours (Table) 07/11/19 07/11/19 07/11/19 Range/Units 12:06 16:10 16:52 RBC (4.30-5.90) m/uL Hgb (13.0-17.5) gm/dL Hct (39.0-53.0) % MCV (80.0-100.0) fL MCH (25.0-35.0) pg RDW (11.5-15.5) % Plt Count (150-450) k/uL Neutrophils # (Manual) (1.3-7.7) k/uL Lymphocytes # (Manual) (1.0-4.8) k/uL Macrocytosis Sodium (137-145) mmol/L BUN (9-20) mg/dL Creatinine (0.66-1.25) mg/dL Glucose (74-99) mg/dL POC Glucose (mg/dL) 189 H 257 H >600 H (75-99) mg/dL Calcium (8.4-10.2) mg/dL 07/11/19 07/11/19 07/12/19 Range/Units 17:17 21:03 04:54 RBC (4.30-5.90) m/uL Hgb (13.0-17.5) gm/dL Hct (39.0-53.0) % MCV (80.0-100.0) fL MCH (25.0-35.0) pg RDW (11.5-15.5) % Plt Count (150-450) k/uL Neutrophils # (Manual) (1.3-7.7) k/uL Lymphocytes # (Manual) (1.0-4.8) k/uL Macrocytosis Sodium 135 L (137-145) mmol/L BUN 78 H (9-20) mg/dL Creatinine 1.73 H (0.66-1.25) mg/dL Glucose 222 H 221 H 239 H (74-99) mg/dL POC Glucose (mg/dL) (75-99) mg/dL Calcium 7.7 L (8.4-10.2) mg/dL 07/12/19 Range/Units 04:54 RBC 2.20 L (4.30-5.90) m/uL Hgb 9.0 L (13.0-17.5) gm/dL Hct 28.8 L (39.0-53.0) % MCV 131.0 H (80.0-100.0) fL MCH 41.0 H (25.0-35.0) pg RDW 19.0 H (11.5-15.5) % Plt Count 62 L (150-450) k/uL Neutrophils # (Manual) 9.60 H (1.3-7.7) k/uL Lymphocytes # (Manual) 0.21 L (1.0-4.8) k/uL Macrocytosis Marked A Sodium (137-145) mmol/L BUN (9-20) mg/dL Creatinine (0.66-1.25) mg/dL Glucose (74-99) mg/dL POC Glucose (mg/dL) (75-99) mg/dL Calcium (8.4-10.2) mg/dL Microbiology - Last 24 Hours (Table) 07/07/19 09:19 Blood Culture - Preliminary Blood No Growth after 96 hours Assessment and Plan Assessment: assessment Acute renal failure severe thrombocytopenia Paroxysmal atrial fibrillation Respiratory failure Possible pneumonia Plan #1 continue the current dose of amiodarone #2 increase the dose of metoprolol #3 follow-up with the patient
[2019-07-12] MEDS ORDERED: LIDOCAINE 1% INJ 10MG/ML (20 ML MDV) SQ ONE (11:26)
[2019-07-12 11:43] LABS: Potassium 4.1 mmol/L (3.5-5.1)
--- NOTE | 2019-07-12 11:50 | P.PN ---
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 coli sepsis secondary to UTI. The patient subsequently went into hypoxic respiratory failure requiring BiPAP for respiratory support with a component of fluid overload and possible pneumonia. In addition, the patient had acute kidney injury, atrial fibrillation with rapid ventricular response. He is known to have also peripheral vascular disease. The patient was placed on BiPAP for respiratory support and he was kept in the intensive care unit. In terms of his E. coli sepsis, urine culture and the blood culture was positive and the patient is still receiving IV antibiotics and the patient is currently on IV Zosyn. He is afebrile and he is hemodynamically stable on no pressors and the patient is not requiring any pressors. In fact, the patient is on amiodarone drip at 0.5 mg per minute and addition to Cardizem at 10 mg an hour for rate control regarding his atrial fibrillation. His echocardiogram was completed on 07/05/2019 and the patient was found to have a impaired LV function with an ejection fraction of 30-35% and mildly enlarged RV with a right-sided pulmonary artery pressure is estimated to be around 46 mmHg. His renal function was also abnormal. The patient developed an acute kidney injury, admission with a crea tinine of 4.6 which gradually improved during the course of his treatment with a decline in the creatinine levels. The patient also had a anion gap metabolic acidosis with gradually recovered. Nephrology is on the case. Ultrasound the kidneys did not show any significant hydronephrosis on this patient. The chest x-ray showed left basilar consolidation right perihilar opacity consistent with multifocal atelectasis/pneumonia. He is receiving PPN for nutritional support. He does have also comorbidities including hypertension, hyperlipidemia, COPD and addition to chronic alcohol use. On today's evaluation of 07/10/2019, the patient is lethargic and weak yet awake and following commands and answering questions appropriately. He is on 3 L of oxygen by nasal cannula. He is not utilizing his BiPAP for now. He remains in atrial fibrillation. He remains on amiodarone maintenance of 0.5 mg per minute. He is on IV Zosyn. His thrombocytopenia is improving. He is receiving PPN for nutritional support. He does have severe peripheral vascular disease along with chronic arterial necrot ic ulcers in his toes bilaterally in addition to some necrotic wounds in the ankles bilaterally worse on the right. He remains afebrile. On today's evaluation of 07/11/2019 the patient is essentially same yesterday. He is lethargic. He is weak. He follows some simple commands. He seems to be appropriate however profoundly weak. He passed a swallow evaluation. Nevertheless, he is oral intake is considered to be low and the patient will be kept on PPN for nutritional support. The patient's IV medication will be switched over to oral as the patient is on amiodarone and Cardizem drip for his atrial fibrillation. Is currently on 2 L of oxygen by nasal cannula. Urine culture came back positive for E. coli. For now, the patient is on oral amiodarone regarding his atrial fibrillation 400 mg by mouth twice a day. The patient is on Toprol 25 mg twice a day. He is receiving Levemir insulin 20 units daily at bedtime. Discontinuation of the IV Solu Medrol helped his blood sugar control. Nevertheless, the patient on PPN which is obviously contributing to his blood sugar elevation. No other significant events overnight. His resting comfortably in bed. On 07/12/2019, the patient is essentially the same condition. Oral intake is minimal and he is not eating much approximately 10-20% of his tray is being utilized on a daily basis. For that reason the patient is being supplemented with TPN for nutritional support. He remains on IV Zosyn. His urine culture came back positive for E. coli. Blood culture came back positive for E. coli. He is on 40s of oxygen by nasal cannula with a pulse ox of 91%. He is awake and alert and is following commands and answering questions. Nevertheless, he remains wide lethargic and weak and he is very much laying in bed without much o f an activity. He has extensive bruising over extremities in addition to severe peripheral vascular disease with chronic ulcerations and his toes bilaterally and these are arterial ulcers are quite necrotic. Vascular surgeries on the case and no surgical interventions to be done. Renal function continues to improve in the creatinine is down to 1.7. Hemoglobin is at 9 without any significant leukocytosis. The blood sugar is under adequate control as the patient is on Lantus insulin in addition to sliding scale coverage. Objective - Vital Signs Vital signs: Vital Signs Temp 98.9 F 07/12/19 08:00 Pulse 82 07/12/19 11:10 Resp 28 H 07/12/19 10:00 BP 141/84 07/12/19 10:00 Pulse Ox 96 07/12/19 10:00 Intake & Output 07/11/19 07/12/19 07/12/19 18:59 06:59 18:59 Intake Total 1560 1620 1782 Output Total 925 925 370 Balance 355 069 5795 Weight 88.6 kg 88.6 kg Intake: IV 1560 1620 535 0.9 NS 110 30 Magnesium Sulfate-D5w Pmx 100 300 1 gm In Dextrose/Water 1 100ml.bag @ 100 mls/hr IVPB Q1H [facility] Rx#: [id number] Mvi, Adult No.4 with Vit 1260 1260 105 K 10 ml Trace (Conc-1Ml/ Dose) 1 ml Sodium Acetate 30 meq Potassium Chloride 20 meq Calcium Gluconate 1 gm In Amino Acid 4.25%-D10w 1,000 ml @ 105 mls/hr IV .BY DURATION [facility] Rx#: [id number] Piperacillin-Tazobactam 3 50 .375 gm In Sodium Chloride 0.9% 100 ml @ 25 mls/hr IVPB Q12HR [facility] Rx #:[id number] Potassium Chloride 10 meq 100 In Water For Injection 1 100ml.bag @ 100 mls/hr IVPB Q1H [facility] Rx#: [id number] Potassium Chloride 10 meq 300 100 In Water For Injection 1 100ml.bag @ 100 mls/hr IVPB Q1HR [facility] Rx#: [id number] Intake, IV Titration 1047 Amount Sodium Acetate 30 meq 1047 Potassium Chloride 40 meq Calcium Gluconate 1 gm Magnesium Sulfate gm 1 gm In Amino Acid 4.25%-D10w 1,000 ml @ 105 mls/hr IV .BY DURATION [facility] Rx#: [id number] Oral 200 Output: Urine 925 925 370 Other: Voiding Method Indwelling Catheter Indwelling Catheter Indwelling Catheter - Exam Gen. appearance the patient is calm and comfortable likely distress, he looks and appears to be quite sick and debilitated. Head exam was generally normal. There was no scleral icterus or corneal arcus. Mucous membranes were moist. Neck was supple and without jugular venous distension, thyromegaly, or carotid bruits. Carotids were easily palpable bilaterally. There was no adenopathy. heart sounds are irregular consistent with atrial fibrillat.Cardiac exam revealed the PMI to be normally situated and sized. The rhythm was regular and no extrasystoles were noted during several minutes of auscultation. The first and second heart sounds were normal and physiologic splitting of the second hea rt sound was noted. There were no murmurs, rubs, clicks, or gallops. Lungs sounds are diminished in lung bases along with coarse rhonchi and some bibasilar crackles are present. Abdominal exam revealed normal bowel sounds. The abdomen was soft, non-tender, and without masses, organomegaly, or appreciable enlargement of the abdominal aorta. Extremities the patient is known to have peripheral vascular disease and has significant ulceration in nonhealing wounds of the feet and the toes. There is significant acrocyanosis. There is also some mottling of the lower extremities. Skin reveals arterial necrotic ulcers in his toes bilaterally where several toes are necrotic and the patient has necrotic ankle wounds worse on the right lateral aspect of the ankle as well as chronic ecchymotic areas throughout his body. Pulses are diminished in the lower extremity is bilaterally, barely obtained by Doppler signals. Neurologically the patient is having global weakness and there is no focal neur ological deficit at this point in time. - Labs CBC & Chem 7: 07/12/19 04:54 07/12/19 11:10 Labs: Abnormal Lab Results - Last 24 Hours (Table) 07/11/19 07/11/19 07/11/19 Range/Units 12:06 16:10 16:52 RBC (4.30-5.90) m/uL Hgb (13.0-17.5) gm/dL Hct (39.0-53.0) % MCV (80.0-100.0) fL MCH (25.0-35.0) pg RDW (11.5-15.5) % Plt Count (150-450) k/uL Neutrophils # (Manual) (1.3-7.7) k/uL Lymphocytes # (Manual) (1.0-4.8) k/uL Macrocytosis Sodium (137-145) mmol/L BUN (9-20) mg/dL Creatinine (0.66-1.25) mg/dL Glucose (74-99) mg/dL POC Glucose (mg/dL) 189 H 257 H >600 H (75-99) mg/dL Calcium (8.4-10.2) mg/dL 07/11/19 07/11/19 07/12/19 Range/Units 17:17 21:03 04:54 RBC (4.30-5.90) m/uL Hgb (13.0-17.5) gm/dL Hct (39.0-53.0) % MCV (80.0-100.0) fL MCH (25.0-35.0) pg RDW (11.5-15.5) % Plt Count (150-450) k/uL Neutrophils # (Manual) (1.3-7.7) k/uL Lymphocytes # (Manual) (1.0-4.8) k/uL Macrocytosis Sodium 135 L (137-145) mmol/L BUN 78 H (9-20) mg/dL Creatinine 1.73 H (0.66-1.25) mg/dL Glucose 222 H 221 H 239 H (74-99) mg/dL POC Glucose (mg/dL) (75-99) mg/dL Calcium 7.7 L (8.4-10.2) mg/dL 07/12/19 07/12/19 Range/Units 04:54 11:10 RBC 2.20 L (4.30-5.90) m/uL Hgb 9.0 L (13.0-17.5) gm/dL Hct 28.8 L (39.0-53.0) % MCV 131.0 H (80.0-100.0) fL MCH 41.0 H (25.0-35.0) pg RDW 19.0 H (11.5-15.5) % Plt Count 62 L (150-450) k/uL Neutrophils # (Manual) 9.60 H (1.3-7.7) k/uL Lymphocytes # (Manual) 0.21 L (1.0-4.8) k/uL Macrocytosis Marked A Sodium (137-145) mmol/L BUN (9-20) mg/dL Creatinine (0.66-1.25) mg/dL Glucose 204 H (74-99) mg/dL POC Glucose (mg/dL) (75-99) mg/dL Calcium (8.4-10.2) mg/dL Microbiology - Last 24 Hours (Table) 07/07/19 09:19 Blood Culture - Preliminary Blood No Growth after 96 hours Assessment and Plan Plan: 1 sepsis with E. coli bacteremia secondary to an underlying UTI currently on IV Zosyn. The patient is hemodynamically stable on no pressors for now. 2 acute hypoxic respiratory failure requiring BiPAP for respiratory supportsecondary to sepsis and possibly component of fluid overload/pneumonia in addition to an underlying COPD, currently improved. Nevertheless, the chest x- ray from today shows a new patchy right basilar opacity probably representing some atelectasis. There is improvement in the aeration of the left lung base. 3 altered mentation secondary to above, improved, profoundly weak, overall mental status improved considerably. Nevertheless, the patient is still lethargic and slow in answering questions and he is probably depressed. 4 acute kidney injury possibly with an underlying chronic kidney disease, improving and the patient's creatinine is down to 1.73 and 5 COPD 6 chronic atrial fibrillation with rapid ventricular response currently on a combination of IV amiodarone and IV Cardizem and these medications has been switched to oral as the patient is able to take oral medication. He'll be given oral amiodarone and Cardizem as stated earlier. He remains atrial fibrillation. Rate is under better control for now. The patient is on no anticoagulation as the patient is chronic thrombocytopenia subsequent drop in the platelet count is gradually improving is up to 51. 7 peripheral vascular disease, severe with chronic arterial ulcers in the lower extremities bilaterally with necrotic digits and necrotic once in the ankles with diminished pulses lower extremities bilaterally. 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 9 hyperlipidemia 10 hypertension 11 chronic history of alcoholism 12 anion gap metabolic acidosis, recovered 13 chronic anemia 14 chronic thrombocytopenia with acute drop in the platelet count, likely is consumptive secondary to sepsis, and the plated count is improving for now 15 PPN for nutritional support 16 diabetes mellitus currently on Levemir in addition to sliding scale coverage. Plan Inserted PICC line Continue TPN for nutritional support Continued IV Zosyn Levemir insulin for blood sugar control in addition to sliding scale coverage Monitor renal function which is improving Monitor plated count which is improving Continue rest of the supportive care. Long-term prognosis poor baseline above- mentioned comorbidities. I asked the nursing staff too. The patient's daughter to come and visit them here in the hospital. I think his long-term prognosis be poor as the patient is very much debilitated.
--- NOTE | 2019-07-12 11:52 | PN ---
PROGRESS NOTE Patient is seen for followup for acute kidney injury. Patient's renal function continues to improve. He is maintained on PPN. Serum creatinine down to 1.7 today. Patient has had good urine output. He is eating slightly better. PHYSICAL EXAMINATION: On examination today, blood pressure 134/87, heart rate 85 per minute, he is afebrile. Examination of the heart S1, S2. Examination of the lungs, bilateral breath sounds are heard. Decreased breath sounds at bases. Abdomen is soft, nontender. Examination of the lower extremities shows significant discoloration of both feet as well as hands, particularly the left hand. Peripheries are cool to touch. No edema is noted. C[employer]ER exam grossly intact. Patient moving all 4 extremities. LABS: Show sodium 135, potassium 3.8, chloride 98, BUN 78, creatinine 1.73, hemoglobin 9.0 g/dL. ASSESSMENT: 1. Acute kidney injury ATN, currently improving. 2. Disproportionately elevated BUN associated with steroids, currently decreasing. 3. Hypokalemia, status post replacement. 4. Sepsis from urinary tract infection. 5. Escherichia coli bacteremia and UTI. 6. Atrial fibrillation with RVR currently with controlled ventricular response. 7. Cardiomyopathy, ejection fraction of 30%-35%. 8. Mild left hydronephrosis with no plans for intervention. PLAN: Continue PPN. Continue to encourage increased oral intake. Continue to avoid nephrotoxic agents. MMODL / IJN: [id number] /
--- NOTE | 2019-07-12 11:53 | XR ---
EXAMINATION TYPE: XR chest 1V portable DATE OF EXAM: 07/12/2019 CLINICAL HISTORY: PICC line placement. TECHNIQUE: Single AP portable upright view of the chest is obtained. COMPARISON: Chest x-ray from earlier today and older studies. FINDINGS: New right-sided PICC line terminates in right atrium. Elevated right hemidiaphragm and lo w lung volumes with persistent patchy bibasilar opacities. Persistent bilateral right perihilar opaci ty abutting fissure and patchy left lateral midlung opacities. Upper lungs remain clear without pneum othorax. Persistent cardiomegaly with atherosclerotic and ectatic thoracic aorta. Old left lateral mi d rib fractures redemonstrated. Partial visualization of distal aortic stent graft once again noted. IMPRESSION: New right-sided PICC line terminating in right atrium. No additional significant change f rom most recent x-ray.
[2019-07-12] MEDS: THIAMINE 100 MG/ML 2 ML VIAL IVP SCH ×2 (12:27→23:13)
--- NOTE | 2019-07-12 12:54 | P.PN ---
Subjective Progress Note Date: 07/12/19 Patient seen and examined sitting up in bed. Patient is more alert and oriented. No acute changes through the night. Patient states pain in feet about the same. Denies any pain in bilateral hands. Objective - Vital Signs Vital signs: Vital Signs Temp 98.9 F 07/12/19 08:00 Pulse 82 07/12/19 11:10 Resp 28 H 07/12/19 10:00 BP 141/84 07/12/19 10:00 Pulse Ox 96 07/12/19 10:00 Intake & Output 07/11/19 07/12/19 07/12/19 18:59 06:59 18:59 Intake Total 1560 1620 2112 Output Total 925 925 580 Balance 470 487 5621 Weight 88.6 kg 88.6 kg Intake: IV 1560 1620 865 0.9 NS 110 60 Magnesium Sulfate-D5w Pmx 100 600 1 gm In Dextrose/Water 1 100ml.bag @ 100 mls/hr IVPB Q1H [facility] Rx#: [id number] Mvi, Adult No.4 with Vit 1260 1260 105 K 10 ml Trace (Conc-1Ml/ Dose) 1 ml Sodium Acetate 30 meq Potassium Chloride 20 meq Calcium Gluconate 1 gm In Amino Acid 4.25%-D10w 1,000 ml @ 105 mls/hr IV .BY DURATION [facility] Rx#: [id number] Piperacillin-Tazobactam 3 50 .375 gm In Sodium Chloride 0.9% 100 ml @ 25 mls/hr IVPB Q12HR [facility] Rx #:[id number] Potassium Chloride 10 meq 100 In Water For Injection 1 100ml.bag @ 100 mls/hr IVPB Q1H [facility] Rx#: [id number] Potassium Chloride 10 meq 300 100 In Water For Injection 1 100ml.bag @ 100 mls/hr IVPB Q1HR [facility] Rx#: [id number] Intake, IV Titration 1047 Amount Sodium Acetate 30 meq 1047 Potassium Chloride 40 meq Calcium Gluconate 1 gm Magnesium Sulfate gm 1 gm In Amino Acid 4.25%-D10w 1,000 ml @ 105 mls/hr IV .BY DURATION [facility] Rx#: [id number] Oral 200 Output: Urine 925 925 580 Other: Voiding Method Indwelling Catheter Indwelling Catheter Indwelling Catheter - Exam General appearance: The patient is alert and awake, in no acute distress. HET: Head is normocephalic and atraumatic. Neck: Supple without lymphadenopathy. Trachea midline. Heart: S1 S2. Regular rate and rhythm. Lungs: Diminished lung sounds. Abdomen: Soft, nontender, nondistended with bowel sounds. Extremities: Bilateral hands with purple coloring and mottling, bilateral palpable 2+ radial pulses. Mottling to bilateral lower extremities up to mid thigh. Bilateral lower extremities with nonpalpable pulses, and absent doppler signal at PT and DP. Bilateral femoral and popliteal Doppler signal. Ulcers on lateral side of bilateral ankles, with ulcerations to bilateral great toes and left second toe. Bilateral lower extremities cold to touch, delayed capillary refill. Patient is able to freely move bilateral lower extremities and toes, sensation is diminished in bilateral lower extremities. Neurological: More alert and orientated, responds and ansers questions appropriately. - Labs CBC & Chem 7: 07/12/19 04:54 07/12/19 11:10 Labs: Abnormal Lab Results - Last 24 Hours (Table) 07/11/19 07/11/19 07/11/19 Range/Units 16:10 16:52 17:17 RBC (4.30-5.90) m/uL Hgb (13.0-17.5) gm/dL Hct (39.0-53.0) % MCV (80.0-100.0) fL MCH (25.0-35.0) pg RDW (11.5-15.5) % Plt Count (150-450) k/uL Neutrophils # (Manual) (1.3-7.7) k/uL Lymphocytes # (Manual) (1.0-4.8) k/uL Macrocytosis Sodium (137-145) mmol/L BUN (9-20) mg/dL Creatinine (0.66-1.25) mg/dL Glucose 222 H (74-99) mg/dL POC Glucose (mg/dL) 257 H >600 H (75-99) mg/dL Calcium (8.4-10.2) mg/dL 07/11/19 07/12/19 07/12/19 Range/Units 21:03 04:54 04:54 RBC 2.20 L (4.30-5.90) m/uL Hgb 9.0 L (13.0-17.5) gm/dL Hct 28.8 L (39.0-53.0) % MCV 131.0 H (80.0-100.0) fL MCH 41.0 H (25.0-35.0) pg RDW 19.0 H (11.5-15.5) % Plt Count 62 L (150-450) k/uL Neutrophils # (Manual) 9.60 H (1.3-7.7) k/uL Lymphocytes # (Manual) 0.21 L (1.0-4.8) k/uL Macrocytosis Marked A Sodium 135 L (137-145) mmol/L BUN 78 H (9-20) mg/dL Creatinine 1.73 H (0.66-1.25) mg/dL Glucose 221 H 239 H (74-99) mg/dL POC Glucose (mg/dL) (75-99) mg/dL Calcium 7.7 L (8.4-10.2) mg/dL 07/12/19 Range/Units 11:10 RBC (4.30-5.90) m/uL Hgb (13.0-17.5) gm/dL Hct (39.0-53.0) % MCV (80.0-100.0) fL MCH (25.0-35.0) pg RDW (11.5-15.5) % Plt Count (150-450) k/uL Neutrophils # (Manual) (1.3-7.7) k/uL Lymphocytes # (Manual) (1.0-4.8) k/uL Macrocytosis Sodium (137-145) mmol/L BUN (9-20) mg/dL Creatinine (0.66-1.25) mg/dL Glucose 204 H (74-99) mg/dL POC Glucose (mg/dL) (75-99) mg/dL Calcium (8.4-10.2) mg/dL Microbiology - Last 24 Hours (Table) 07/07/19 09:19 Blood Culture - Preliminary Blood No Growth after 120 hours Assessment and Plan Assessment: 1. Bilateral lower extremity toe ulcerations, Kelly 5 peripheral arterial disease 2. Acute metabolic encephalopathy 3. Acute hypoxic respiratory failure, previously on BiPAP 4. Metabolic acidosis with acute kidney injury-stable 5. Acute kidney injury 6. History of abdominal aortic aneurysm status post repair 7. history of alcohol abuse and withdrawal 8. chronic anemia 9. thrombocytopenia Plan: No vascular intervention at this time. Plan is for possible future aortogram with runoff if patient to recover. Dr. Ladd discussed with patient again CODE STATUS, patient states he has a power of commercial attorney and he also continues to wish to be a full CODE STATUS The above dictated assessment and findings were discussed with Dr. Ladd. The impression and plan of care have been directed as dictated.
--- NOTE | 2019-07-12 12:58 | IR ---
PICC LINE PLACEMENT: HISTORY: Infection requiring long-term antibiotic therapy PROCEDURE: Ultrasound guidance of PICC line placement. [employer] ARCHITECT: Dr. Shaffer. COMPLICATIONS: None ANESTHESIA: 1. 1% Lidocaine locally. FINDINGS/TECHNIQUE: The procedure was explained to the patient. The risks, complications, benefits and alternatives were discussed and any questions were answered. Informed consent was obtained. The patient was placed supine on the fluoroscopic table and prepped and draped in the usual sterile fash ion. Utilizing a 21 gauge needle and sonographic guidance, access in the right brachial vein was ac hieved and there is placement of a 0.018 guidewire. The vein is patent. A 5-F. sheath was placed ov er the guidewire. The guidewire and dilator were removed and a 5-F. Double lumen PICC line was place d through the sheath with the chest x-ray confirming the tip at the level of the SVC. The sheath was removed, the catheter was flushed and sutured into position. The patient was stable throughout the procedure and remained stable upon discharge from the Department of Radiology. The vein puncture was patent under ultrasound. A martínez scale image was obtained to document patency of the vein punctured. All elements of the maximal barrier technique were utilized. IMPRESSION: 1. Successful PICC line placement under ultrasound performed bedside within the ICU. Successful PICC line placement under ultrasound and fluoroscopic guidance.
--- NOTE | 2019-07-12 15:28 | PN ---
PROGRESS NOTE DATE OF SERVICE: 07/12/2019 REASON FOR FOLLOWUP: 1. E coli bacteremia secondary to urinary source. 2. Aspiration pneumonia. INTERVAL HISTORY: The patient is currently afebrile. The patient is breathing comfortably. Denies any chest pain. Occasional cough. No nausea, vomiting, abdominal or pain or diarrhea. PHYSICAL EXAMINATION: Blood pressure 153/88 with a pulse of 80, temperature 98.8. He is 97% on 4 L nasal cannula. General description is an elderly male lying in bed in no distress. RESPIRATORY SYSTEM: Unlabored breathing. Clear to auscultation anteriorly. HEART: S1, S2. Regular rate and rhythm. ABDOMEN: Soft. No tenderness. LABS: Hemoglobin is 9, white count 10.5, BUN of 78, creatinine 1.73. DIAGNOSTIC IMPRESSION AND PLAN: Patient with Escherichia coli bacteremia secondary to urinary source in this patient who also has a component of aspiration pneumonia. Patient is currently covered with Zosyn, for which the patient received about 10 days of IV antibiotic therapy. If the patient continues to improve, hopefully finish therapy with oral antibiotics and monitor his clinical course closely. MMODL / IJN: [id number] /
[2019-07-12 17:24] LABS: Glucose,Whole Blood 262 mg/dL (75-99)
--- NOTE | 2019-07-12 18:09 | P.PN ---
Subjective Progress Note Date: 07/12/19 Principal diagnosis: Altered mental status Patient was seen and examined. No acute events overnight. Patient currently being treated for E. coli UTI sepsis with hydronephrosis. Also has respiratory failure secondary to CHF, COPD and possible pneumonia. Also in A. fib with RVR. Has history of PAD with necrotic lower extremity wounds. His mentation has considerably improved since admission. He is able to follow commands and answer questions in an appropriate manner. His condition is similar to yesterday. He is currently off of BiPAP and is saturating low 90s on 4L nasal cannula. He is currently on oral amiodarone and metoprolol. He is receiving Zosyn for E. coli bacteremia. Currently on parenteral nutrition. He denies any chest pain, shortness of breath or palpitations. No nausea or vomiting. No fever or chills. He was evaluated by vascular surgery stating no vascular intervention at this time for his distal necrotic wounds. Objective - Vital Signs Vital signs: Vital Signs Temp 97.9 F 07/12/19 16:00 Pulse 88 07/12/19 17:00 Resp 27 H 07/12/19 17:00 BP 128/79 07/12/19 17:00 Pulse Ox 94 L 07/12/19 17:00 Intake & Output 07/11/19 07/12/19 07/12/19 18:59 06:59 18:59 Intake Total 1560 1620 2662 Output Total 925 925 840 Balance 889 075 5588 Weight 88.6 kg 88.6 kg Intake: IV 1560 1620 1415 0.9 NS 110 110 Magnesium Sulfate-D5w Pmx 100 1100 1 gm In Dextrose/Water 1 100ml.bag @ 100 mls/hr IVPB Q1H [facility] Rx#: [id number] Mvi, Adult No.4 with Vit 1260 1260 105 K 10 ml Trace (Conc-1Ml/ Dose) 1 ml Sodium Acetate 30 meq Potassium Chloride 20 meq Calcium Gluconate 1 gm In Amino Acid 4.25%-D10w 1,000 ml @ 105 mls/hr IV .BY DURATION [facility] Rx#: [id number] Piperacillin-Tazobactam 3 50 .375 gm In Sodium Chloride 0.9% 100 ml @ 25 mls/hr IVPB Q12HR [facility] Rx #:[id number] Potassium Chloride 10 meq 100 In Water For Injection 1 100ml.bag @ 100 mls/hr IVPB Q1H [facility] Rx#: [id number] Potassium Chloride 10 meq 300 100 In Water For Injection 1 100ml.bag @ 100 mls/hr IVPB Q1HR [facility] Rx#: [id number] Intake, IV Titration 1047 Amount Sodium Acetate 30 meq 1047 Potassium Chloride 40 meq Calcium Gluconate 1 gm Magnesium Sulfate gm 1 gm In Amino Acid 4.25%-D10w 1,000 ml @ 105 mls/hr IV .BY DURATION [facility] Rx#: [id number] Oral 200 Output: Urine 925 925 840 Other: Voiding Method Indwelling Catheter Indwelling Catheter Indwelling Catheter - Exam General: [Appears toxic older than stated age], [no distress], [appears at stated age] Derm: [warm], [dry] Head: [atraumatic], [normocephalic], [symmetric] Eyes: [EOMI], [no lid lag], [anicteric sclera] Mouth: [no lip lesion], [mucus membranes moist] Cardiovascular: [S1S2 irregular], [no murmur], [unable to palpate DP or PT pulses in either extremities], Lungs: [Decreased breath sounds bilateral], [no rhonchi, no rales] , [no accessory muscle use] Abdominal: [soft], [ nontender to palpation], [nondistended], [no appreciable organomegaly] Ext: [no gross muscle atrophy], [no edema], [necrotic, ulcerated wounds in bilateral feet and toes], [scattered ecchymosis in all 4 extremities] Neuro: [Moving all 4 extremities with no focal neurologic deficits] Psych: [Alert and oriented 1-2] - Labs CBC & Chem 7: 07/12/19 04:54 07/12/19 11:10 Labs: Abnormal Lab Results - Last 24 Hours (Table) 07/11/19 07/12/19 07/12/19 Range/Units 21:03 04:54 04:54 RBC 2.20 L (4.30-5.90) m/uL Hgb 9.0 L (13.0-17.5) gm/dL Hct 28.8 L (39.0-53.0) % MCV 131.0 H (80.0-100.0) fL MCH 41.0 H (25.0-35.0) pg RDW 19.0 H (11.5-15.5) % Plt Count 62 L (150-450) k/uL Neutrophils # (Manual) 9.60 H (1.3-7.7) k/uL Lymphocytes # (Manual) 0.21 L (1.0-4.8) k/uL Macrocytosis Marked A Sodium 135 L (137-145) mmol/L BUN 78 H (9-20) mg/dL Creatinine 1.73 H (0.66-1.25) mg/dL Glucose 221 H 239 H (74-99) mg/dL POC Glucose (mg/dL) (75-99) mg/dL Calcium 7.7 L (8.4-10.2) mg/dL 07/12/19 07/12/19 Range/Units 11:10 17:22 RBC (4.30-5.90) m/uL Hgb (13.0-17.5) gm/dL Hct (39.0-53.0) % MCV (80.0-100.0) fL MCH (25.0-35.0) pg RDW (11.5-15.5) % Plt Count (150-450) k/uL Neutrophils # (Manual) (1.3-7.7) k/uL Lymphocytes # (Manual) (1.0-4.8) k/uL Macrocytosis Sodium (137-145) mmol/L BUN (9-20) mg/dL Creatinine (0.66-1.25) mg/dL Glucose 204 H (74-99) mg/dL POC Glucose (mg/dL) 262 H (75-99) mg/dL Calcium (8.4-10.2) mg/dL Microbiology - Last 24 Hours (Table) 07/07/19 09:19 Blood Culture - Preliminary Blood No Growth after 120 hours Assessment and Plan Assessment: Sepsis with E. coli UTI and bacteremia Acute renal failure with Left-sided hydronephrosis Acute metabolic encephalopathy Acute hypoxic respiratory failure secondary to COPD, CHF and possible pneumonia rule out COVID Atrial fibrillation with RVR Steroid-induced hyperglycemia Thrombocytopenia Troponin elevation Severe PAD History of alcohol abuse Blood culture and urine culture positive for E. coli. Repeat blood cultures negative at 120 hours. Plans: Continue Zosyn. Follow repeat blood cultures. I nfectious disease on board. BUN 011-05-78-78, creatinine 2.76-2.27-1.86-1.73. Also with left-sided hydronephrosis. Plans: Urology evaluated patient for hydronephrosis, found to be mild in nature with nothing further from a urologic standpoint. Avoid nephrotoxins. Repeat BMP tomorrow morning. Nephrology following. His metabolic encephalopathy is likely related to sepsis with E. coli bacteremia along with acute hypoxic respiratory failure. This has been improving over the last 3 days. This morning chest x-ray is essentially unchanged from yesterday. Plans: Continue Pulmicort. Continue formoterol. DuoNeb scheduled and as needed for shortness of breath and wheezing. Continue Solu-Medrol. O2 per NC to maintain O2 saturation greater than 92%. Low threshold for intubation. Pulmonology on board. Heart rate irregular in the 100s. Plans: Patient will be continued on oral Metoprolol and amiodarone. Hold anticoagulation for thrombocytopenia. Cardiology on board. Xynay-wa-gons glucose 262. Plans: Levemir 20 units at bedtime. Insulin sliding scale. Regular Accu-Cheks. Hypoglycemic precautions. Platelet count of 62. Also with chronic alcohol abuse. Plans: No obvious signs of gross bleeding. Hemoglobin remaining stable at 9. Repeat CBC tomorrow morning. Transfuse if platelet count less than 10. Troponin 0.061, 0.105, 0.125. Likely demand ischemia from A. fib with RVR also sepsis. Acute coronary syndrome ruled out. Plans: Follow cardiology recommendations. Plans: No intervention planned by vascular surgery. CT aorta with runoff planned if patient is able to recover. Plans: Continue to monitor for signs and symptoms of withdrawal. [Patient admitted for E. coli bacteremia and sepsis, repeat blood culture negative so far. Found to have acute renal failure which is improving. Also hypoxic respiratory failure from COPD, CHF and possible PNA which is also im proving. He is pending clinical improvement. Prognosis is guarded.]
[2019-07-12] MEDS: INSULIN DETEMIR (LEVEMIR) 100 UNIT/ML SYR SQ SCH (20:40)
[2019-07-12] MEDS: METOPROLOL TARTRATE 50 MG TAB PO SCH (20:41)
[2019-07-13 04:49] LABS: Anisocytosis Slight; Basophils % (A) 0 %; Eosinophils % (A) 0 %; HCT 26.1 % (39.0-53.0); HGB 8.3 gm/dL (13.0-17.5); Hypochromasia Moderate; Lymphocytes # (A) 0.5 k/uL (1.0-4.8); Lymphocytes % (A) 5 %; MCH 39.4 pg (25.0-35.0); MCHC 31.7 g/dL (31.0-37.0); Macrocytosis Marked; Mean Platelet Volume 14.2; Monocytes # (A) 0.4 k/uL (0-1.0); Monocytes % (A) 4 %; Neutrophils # (A) 8.1 k/uL (1.3-7.7); Neutrophils % (A) 89 %; RDW 18.8 % (11.5-15.5)
[2019-07-13 04:55] LABS: Calcium 7.4 mg/dL (8.4-10.2); Magnesium 2.2 mg/dL (1.6-2.3); Phosphorus 2.1 mg/dL (2.5-4.5); Potassium 4.3 mmol/L (3.5-5.1)
[2019-07-13 04:56] LABS: MCV 124.3 fL (80.0-100.0)
[2019-07-13 04:57] LABS: Platelet Count 86 k/uL (150-450)
[2019-07-13] MEDS ORDERED: Phosphorus Replacement Protoco 1 EACH MISC MISCELLANE PRN (04:58)
[2019-07-13] MEDS ORDERED: SODIUM PHOSPHATE 10 MMOL in SODIUM CHLORIDE 0.9% 250 ML IVPB ONE (05:30)
[2019-07-13 05:43] LABS: Polychromasia Present
[2019-07-13 06:29] LABS: Glucose,Whole Blood 127 mg/dL (75-99)
[2019-07-13] MEDS: 1: MVI, ADULT NO.4 WITH VIT K 10 ML, TRACE (CONC-1ML/DOSE) 1 ML, SODIUM ACETATE 30 MEQ, IV SCH ×7 (06:37)
[2019-07-13] MEDS: INSULIN ASPART (NovoLOG) 100 UNIT/ML VIAL SQ SCH ×4 (06:37→20:30)
--- NOTE | 2019-07-13 07:33 | XR ---
EXAMINATION TYPE: XR chest 1V DATE OF EXAM: 07/13/2019 COMPARISON: 07/12/2019 HISTORY: Pneumonia and respiratory failure TECHNIQUE: Single frontal view of the chest is obtained. FINDINGS: Left basilar consolidation and minimal patchy airspace disease at the right elevated hemid iaphragm. Persistent right perihilar opacity. However skinfold overlying the lateral right midlung. O ld left lateral rib fractures redemonstrated. Aortic stent graft is partially visualized. Cardiomedia stinal silhouette is stable. Moderate degenerative change of the spine. Unchanged positioning of the right PICC terminating in the right atrium. IMPRESSION: Stable exam from the prior with consolidation of the left costophrenic angle and minimal strand-like multifocal right-sided atelectasis.
[2019-07-13] MEDS: METOPROLOL TARTRATE 50 MG TAB PO SCH ×2 (08:00→20:30)
[2019-07-13] MEDS: PIPERACILLIN-TAZOBACTAM 3.375 GM in SODIUM CHLORIDE 0.9% 100 ML IVPB SCH ×3 (08:01→23:39)
[2019-07-13] MEDS: AMIODARONE 200 MG TAB PO SCH ×2 (08:01→20:30)
[2019-07-13] MEDS: PANTOPRAZOLE 40 MG/10 ML VIAL IV SCH (08:01)
[2019-07-13] MEDS: BUDESONIDE 1 MG/2 ML NEBU INHALATION SCH ×2 (08:08→20:07)
[2019-07-13] MEDS: IPRATROPIUM-ALBUTEROL 3 ML NEB INHALATION SCH ×4 (08:08→20:07)
[2019-07-13] MEDS: FORMOTEROL FUMARATE 20 MCG/2 ML NEBU INHALATION SCH ×2 (08:08→20:07)
[2019-07-13] MEDS ORDERED: SENNOSIDES 8.6 MG TAB PO PRN (08:38)
--- NOTE | 2019-07-13 09:14 | P.PN ---
Subjective Progress Note Date: 07/13/19 Principal diagnosis: paroxysmal atrial fibrillation This is a 73-year-old gentleman with extensive past medical history consistent for thrombocytopenia, chronic kidney disease, as well as multiple comorbid conditions, was brought to the emergency room by his daughter because the patient was not feeling well. Currently the patient is lethargic and the history was taken from the chart. Also the history was taken from the nurse at bedside. The patient was brought to the emergency room by his daughter. Apparently he fell at home several times. He was drinking alcohol excessively. No indication of any symptoms of chest pain or chest discomfort or shortness of breath. No indication of any history of coronary artery disease or congestive heart failure or cardiac arrhythmia. When the patient was seen in the emergency department he was quite hypotensive and required IV fluid excessively. Also he was found to be in acute renal failure. Nephrology is on the case. The patient was seen today, 07/13/2019. He has been maintaining normal sinus mechanism. Clinically he is looking better. He does have bilateral lower extremities critical limb ischemia and currently he is under the care off vascular surgery. He is on metoprolol as well as amiodarone. We will continue holding any oral anticoagulation at this point in view of the thrombocytopenia which has been improving overall. We will start the patient on SANTOSH inhibitor as well as Aldactone once his creatinine is better. We'll do that in the next few days. Objective - Vital Signs Vital signs: Vital Signs Temp 98.4 F 07/13/19 08:00 Pulse 82 07/13/19 08:32 Resp 12 07/13/19 08:00 BP 131/86 07/13/19 08:00 Pulse Ox 93 L 07/13/19 08:00 Intake & Output 07/12/19 07/13/19 07/13/19 18:59 06:59 18:59 Intake Total 2772 2647 480 Output Total 965 1065 225 Balance 1807 1582 255 Weight 88.6 kg 86.2 kg Intake: IV 1525 1600 355 0.9 NS 120 120 20 Magnesium Sulfate-D5w Pmx 1200 100 1 gm In Dextrose/Water 1 100ml.bag @ 100 mls/hr IVPB Q1H [facility] Rx#: [id number] Mvi, Adult No.4 with Vit 105 K 10 ml Trace (Conc-1Ml/ Dose) 1 ml Sodium Acetate 30 meq Potassium Chloride 20 meq Calcium Gluconate 1 gm In Amino Acid 4.25%-D10w 1,000 ml @ 105 mls/hr IV .BY DURATION [facility] Rx#: [id number] Mvi, Adult No.4 with Vit 105 210 K 10 ml Trace (Conc-1Ml/ Dose) 1 ml Sodium Acetate 30 meq Potassium Chloride 40 meq Calcium Gluconate 1 gm Magnesium Sulfate gm 1 gm In Amino Acid 4.25%-D10w 1,000 ml @ 105 mls/hr IV .BY DURATION [facility] Rx#: [id number] Piperacillin-Tazobactam 3 100 .375 gm In Sodium Chloride 0.9% 100 ml @ 25 mls/hr IVPB Q12HR [facility] Rx #:[id number] Potassium Chloride 10 meq 100 In Water For Injection 1 100ml.bag @ 100 mls/hr IVPB Q1HR [facility] Rx#: [id number] Sodium Acetate 30 meq 1050 Potassium Chloride 40 meq Calcium Gluconate 1 gm Magnesium Sulfate gm 1 gm In Amino Acid 4.25%-D10w 1,000 ml @ 105 mls/hr IV .BY DURATION [facility] Rx#: [id number] Sodium Phosphate 10 mmol 125 125 In Sodium Chloride 0.9% 250 ml @ 125 mls/hr IVPB ONCE [facility] Rx#:[id number] Intake, IV Titration 1047 1047 Amount Sodium Acetate 30 meq 1047 1047 Potassium Chloride 40 meq Calcium Gluconate 1 gm Magnesium Sulfate gm 1 gm In Amino Acid 4.25%-D10w 1,000 ml @ 105 mls/hr IV .BY DURATION [facility] Rx#: [id number] Oral 200 125 Output: Urine 965 1065 225 Other: Voiding Method Indwelling Catheter Indwelling Catheter Indwelling Catheter - Constitutional General appearance: Present: no acute distress - Respiratory Respiratory: bilateral: diminished - Cardiovascular Rhythm: regular Heart sounds: normal: S1, S2 - Labs CBC & Chem 7: 07/13/19 04:35 07/13/19 04:35 Labs: Abnormal Lab Results - Last 24 Hours (Table) 07/12/19 07/12/19 07/12/19 Range/Units 04:54 11:10 17:22 RBC (4.30-5.90) m/uL Hgb (13.0-17.5) gm/dL Hct (39.0-53.0) % MCV (80.0-100.0) fL MCH (25.0-35.0) pg RDW (11.5-15.5) % Plt Count (150-450) k/uL Neutrophils # (1.3-7.7) k/uL Lymphocytes # (1.0-4.8) k/uL Macrocytosis Sodium (137-145) mmol/L BUN (9-20) mg/dL Creatinine (0.66-1.25) mg/dL Glucose 204 H (74-99) mg/dL POC Glucose (mg/dL) 262 H (75-99) mg/dL Calcium (8.4-10.2) mg/dL Phosphorus (2.5-4.5) mg/dL Procalcitonin 2.56 H (0.02-0.09) ng/mL 07/12/19 07/13/19 07/13/19 Range/Units 19:47 04:35 04:35 RBC 2.10 L (4.30-5.90) m/uL Hgb 8.3 L (13.0-17.5) gm/dL Hct 26.1 L (39.0-53.0) % MCV 124.3 H D (80.0-100.0) fL MCH 39.4 H (25.0-35.0) pg RDW 18.8 H (11.5-15.5) % Plt Count 86 L (150-450) k/uL Neutrophils # 8.1 H (1.3-7.7) k/uL Lymphocytes # 0.5 L (1.0-4.8) k/uL Macrocytosis Marked A Sodium 135 L (137-145) mmol/L BUN 68 H (9-20) mg/dL Creatinine 1.45 H (0.66-1.25) mg/dL Glucose 218 H 193 H (74-99) mg/dL POC Glucose (mg/dL) (75-99) mg/dL Calcium 7.4 L (8.4-10.2) mg/dL Phosphorus 2.1 L (2.5-4.5) mg/dL Procalcitonin (0.02-0.09) ng/mL 07/13/19 Range/Units 06:28 RBC (4.30-5.90) m/uL Hgb (13.0-17.5) gm/dL Hct (39.0-53.0) % MCV (80.0-100.0) fL MCH (25.0-35.0) pg RDW (11.5-15.5) % Plt Count (150-450) k/uL Neutrophils # (1.3-7.7) k/uL Lymphocytes # (1.0-4.8) k/uL Macrocytosis Sodium (137-145) mmol/L BUN (9-20) mg/dL Creatinine (0.66-1.25) mg/dL Glucose (74-99) mg/dL POC Glucose (mg/dL) 127 H (75-99) mg/dL Calcium (8.4-10.2) mg/dL Phosphorus (2.5-4.5) mg/dL Procalcitonin (0.02-0.09) ng/mL Microbiology - Last 24 Hours (Table) 07/07/19 09:19 Blood Culture - Preliminary Blood No Growth after 120 hours Assessment and Plan Assessment: assessment Acute renal failure severe thrombocytopenia Paroxysmal atrial fibrillation Respiratory failure Possible pneumonia Plan #1 continue the current dose of amiodarone and the current dose of metoprolol #2 continue monitor the kidney function and electrolytes #3 continue monitor the hemoglobin #4 start the patient on lisinopril as well as Aldactone in the next few days
[2019-07-13] MEDS ORDERED: HEPARIN SODIUM,PORCINE 5,000 UNIT/ML 1 ML VIAL IV ONE (09:49)
--- NOTE | 2019-07-13 09:56 | P.CONS ---
History of Present Illness - Chief Complaint Medical debility - History of Present Illness I had the opportunity to see patient for inpatient rehab consultation with regard to medical debility. He was admitted to [facility] July 03 with increasing confusion and lethargy and known multiple medical issues. Seen and consultations by renea Thomas, Xuan. Chest x-rays followed for left lower lobe consolidation and right side atelectasis. Renal ultrasound demonstrates possible right cystic changes. Cardiac echo with mild left atrial enlargement mild mitral and tricuspid regurg and aortic dilatation. PT reports two-person maximal assistance for bed mobility. OT reports maximal assistance for upper dressing in 2 person maximal assistance for bathing and two-person total assistance for lower dressing, toileting and transfers. Previous functional history as elicited from patient: He thought he was 49-year-old is actually 73-year-old right-handed white male who is lives and 2 floor home/apartment with . claims cooking, laundry, driving. Patient retired orthopedist. Describes independent with own sitdown shower and gait without device. Admits to smoking 3 cigarettes per day and denies alcohol although there is history of alcohol abuse. Review of Systems Review of systems: Patient confused and gleaned from chart and exam patient. Skin: Multiple breakdowns and atrophy as well as discolorations. Generally distally. ENT: Denies sneezes or discharge. Eyes: Denies discharge or photophobia. Cardiac: Denies chest pain or palpitation. Pulmonary: Denies cough or shortness of breath. Gastrointestinal: Denies nausea, emesis, constipation, diarrhea. Genitourinary: Denies discharge or frequency. Musculoskeletal: Denies muscle or bone aches. Neurologic: Generalized weakness. Endocrine: Denies shakes or sweats. Oncology: Denies cancers. Dermatologic: Denies rash, itching, pruritus. ALLERGY/immunology: Denies sneezes, rashes. Past Medical History Past Medical History: Blood Disorder, Hyperlipidemia, Hypertension, Osteoarthritis (OA) Additional Past Medical History / Comment(s): FX PELVIS, WRIST, ELBOW, SPINE, Idiopathic thrombocytosis, AAA History of Any Multi-Drug Resistant Organisms: None Reported Past Surgical History: Appendectomy, Orthopedic Surgery, Tonsillectomy Additional Past Surgical History / Comment(s): DECOMPRESSION LAMINECTOMY, ORIF L ELBOW, L SUBMANDIBULAR GLAND EXCISED, EYE SURGERY, R CEA, EVAR Past Anesthesia/Blood Transfusion Reactions: No Reported Reaction Past Psychological History: No Psychological Hx Reported Smoking Status: Current every day smoker Past Alcohol Use History: None Reported, Heavy - Past Family History Father Family Medical History: Unable to Obtain, Cancer, Prostate Disorder Medications and Allergies Home Medications Medication Instructions Recorded Confirmed Type Atenolol [Tenormin] 50 mg PO DAILY@0800 01/07/17 07/04/19 History Atorvastatin Calcium [Lipitor] 5 mg PO DAILY@79901/07/17 07/04/19 History DULoxetine HCL [Cymbalta] 60 mg PO HS@199901/07/17 07/04/19 History Ranitidine HCl [Zantac] 150 mg PO BID@799,199901/07/17 07/04/19 History Tamsulosin [Flomax] 0.4 mg PO HS@199901/07/17 07/04/19 History Calcium/Magnesium/Zinc 1 tab PO DAILY@79901/15/19 07/04/19 History [Kbomhaw-Fvmjnaekn-Jxiq Tablet] Cyanocobalamin (Vitamin B-12) 1,000 mcg PO DAILY@79901/15/19 07/04/19 History [Vitamin B-12] Mometasone/Formoterol [Dulera 200 2 puff INHALATION RT-BID@799,199901/15/19 07/04/19 History Mcg/5 Mcg Inhaler] Hydroxyurea [Hydrea] 500 mg PO BID #60 cap 01/17/19 07/04/19 Rx ALPRAZolam [Xanax] 0.25 mg PO HS 07/04/19 07/04/19 History Ipratropium-Albuterol Nebulize 3 ml INHALATION RT-QID 07/04/19 07/04/19 History [Duoneb 0.5 mg-3 mg/3 ml Soln] Megestrol [Megace] 400 mg PO DAILY 07/04/19 07/04/19 History predniSONE 10 mg PO DAILY 07/04/19 07/04/19 History Allergies Allergy/AdvReac Type Severity Reaction Status Date / Time SANTOSH Inhibitors Allergy Unknown Verified 07/04/19 13:20 gabapentin [From Neurontin] AdvReac Severe Swelling Verified 07/04/19 13:20 Physical Exam Vitals: Vital Signs Temp Pulse Resp BP Pulse Ox 07/13/19 08:32 82 07/13/19 08:23 80 07/13/19 08:22 80 07/13/19 08:11 84 07/13/19 08:00 98.4 F 79 12 131/86 93 L 07/13/19 07:00 76 16 126/85 93 L 07/13/19 06:00 76 30 H 132/89 95 07/13/19 05:00 77 28 H 147/118 95 07/13/19 04:00 97.5 F L 76 25 H 141/98 96 07/13/19 03:00 79 29 H 145/84 97 07/13/19 02:00 76 25 H 147/77 94 L 07/13/19 01:00 79 28 H 133/87 94 L 07/13/19 00:00 97.8 F 80 30 H 146/123 97 07/12/19 23:00 82 28 H 144/89 94 L 07/12/19 22:00 81 24 149/89 95 07/12/19 21:00 92 26 H 139/103 96 07/12/19 20:31 93 07/12/19 20:21 84 07/12/19 20:20 84 07/12/19 20:11 92 07/12/19 20:00 97.6 F 86 16 116/100 95 07/12/19 19:00 92 12 106/83 93 L 07/12/19 18:00 90 29 H 116/80 94 L 07/12/19 17:00 88 27 H 128/79 94 L 07/12/19 16:09 86 07/12/19 16:02 84 94 L 07/12/19 16:00 97.9 F 82 28 H 150/94 94 L 07/12/19 15:00 86 29 H 149/99 95 07/12/19 14:00 82 27 H 163/94 92 L 07/12/19 13:00 80 24 115/86 95 07/12/19 12:00 98.8 F 80 20 153/88 97 07/12/19 11:10 82 07/12/19 11:00 80 26 H 136/83 100 07/12/19 10:54 74 07/12/19 10:00 81 28 H 141/84 96 Intake and Output 07/12/19 07/13/19 07/13/19 22:59 06:59 14:59 Intake Total 1942 1145 480 Output Total 610 740 225 Balance 1332 405 255 Intake: IV 895 1145 355 0.9 NS 80 80 20 Magnesium Sulfate-D5w Pmx 500 1 gm In Dextrose/Water 1 100ml.bag @ 100 mls/hr IVPB Q1H [facility] Rx#: [id number] Mvi, Adult No.4 with Vit 105 210 K 10 ml Trace (Conc-1Ml/ Dose) 1 ml Sodium Acetate 30 meq Potassium Chloride 40 meq Calcium Gluconate 1 gm Magnesium Sulfate gm 1 gm In Amino Acid 4.25%-D10w 1,000 ml @ 105 mls/hr IV .BY DURATION [facility] Rx#: [id number] Piperacillin-Tazobactam 3 100 .375 gm In Sodium Chloride 0.9% 100 ml @ 25 mls/hr IVPB Q12HR [facility] Rx #:[id number] Sodium Acetate 30 meq 210 840 Potassium Chloride 40 meq Calcium Gluconate 1 gm Magnesium Sulfate gm 1 gm In Amino Acid 4.25%-D10w 1,000 ml @ 105 mls/hr IV .BY DURATION [facility] Rx#: [id number] Sodium Phosphate 10 mmol 125 125 In Sodium Chloride 0.9% 250 ml @ 125 mls/hr IVPB ONCE ONE Rx#:[id number] Intake, IV Titration 1047 Amount Sodium Acetate 30 meq 1047 Potassium Chloride 40 meq Calcium Gluconate 1 gm Magnesium Sulfate gm 1 gm In Amino Acid 4.25%-D10w 1,000 ml @ 105 mls/hr IV .BY DURATION [facility] Rx#: [id number] Oral 125 Output: Urine 610 740 225 Other: Voiding Method Indwelling Catheter Indwelling Catheter Indwelling Catheter Weight 86.2 kg Skin: Atrophic. Discolorations distally with skin sores noted especially distally. General: Medium build and comfortable appearance. Head: Normocephalic, atraumatic. Eyes: Symmetric. Pupils equal round. Ears: Symmetric. Hearing within normal limits. Mouth: Clear. Neck: Supple. Carotid without bruit. Cardiac: Regular rate and rhythm. Lungs: Clear anteriorly and posteriorly. Abdomen: Soft active nontender. Extremities: Normal tone. Neurological: Mental status: Confused, cooperative. Cranial nerves: Symmetric facial tone and trapezius. Motor: Poor elevation of arms and unable to elevate legs off of bed. Sensation: Intact throughout. DTRs: Symmetric and equal throughout. Mobility: Requires physical assist for bed mobility. Results CBC & Chem 7: 07/13/19 04:35 07/13/19 04:35 Labs: Abnormal Lab Results - Last 24 Hours (Table) 07/12/19 07/12/19 07/12/19 Range/Units 04:54 11:10 17:22 RBC (4.30-5.90) m/uL Hgb (13.0-17.5) gm/dL Hct (39.0-53.0) % MCV (80.0-100.0) fL MCH (25.0-35.0) pg RDW (11.5-15.5) % Plt Count (150-450) k/uL Neutrophils # (1.3-7.7) k/uL Lymphocytes # (1.0-4.8) k/uL Macrocytosis Sodium (137-145) mmol/L BUN (9-20) mg/dL Creatinine (0.66-1.25) mg/dL Glucose 204 H (74-99) mg/dL POC Glucose (mg/dL) 262 H (75-99) mg/dL Calcium (8.4-10.2) mg/dL Phosphorus (2.5-4.5) mg/dL Procalcitonin 2.56 H (0.02-0.09) ng/mL 07/12/19 07/13/19 07/13/19 Range/Units 19:47 04:35 04:35 RBC 2.10 L (4.30-5.90) m/uL Hgb 8.3 L (13.0-17.5) gm/dL Hct 26.1 L (39.0-53.0) % MCV 124.3 H D (80.0-100.0) fL MCH 39.4 H (25.0-35.0) pg RDW 18.8 H (11.5-15.5) % Plt Count 86 L (150-450) k/uL Neutrophils # 8.1 H (1.3-7.7) k/uL Lymphocytes # 0.5 L (1.0-4.8) k/uL Macrocytosis Marked A Sodium 135 L (137-145) mmol/L BUN 68 H (9-20) mg/dL Creatinine 1.45 H (0.66-1.25) mg/dL Glucose 218 H 193 H (74-99) mg/dL POC Glucose (mg/dL) (75-99) mg/dL Calcium 7.4 L (8.4-10.2) mg/dL Phosphorus 2.1 L (2.5-4.5) mg/dL Procalcitonin (0.02-0.09) ng/mL 07/13/19 Range/Units 06:28 RBC (4.30-5.90) m/uL Hgb (13.0-17.5) gm/dL Hct (39.0-53.0) % MCV (80.0-100.0) fL MCH (25.0-35.0) pg RDW (11.5-15.5) % Plt Count (150-450) k/uL Neutrophils # (1.3-7.7) k/uL Lymphocytes # (1.0-4.8) k/uL Macrocytosis Sodium (137-145) mmol/L BUN (9-20) mg/dL Creatinine (0.66-1.25) mg/dL Glucose (74-99) mg/dL POC Glucose (mg/dL) 127 H (75-99) mg/dL Calcium (8.4-10.2) mg/dL Phosphorus (2.5-4.5) mg/dL Procalcitonin (0.02-0.09) ng/mL Microbiology - Last 24 Hours (Table) 07/07/19 09:19 Blood Culture - Preliminary Blood No Growth after 120 hours Assessment and Plan (1) Acute respiratory distress syndrome in adult Current Visit: Yes Status: Acute Code(s): J80 - ACUTE RESPIRATORY DISTRESS SYNDROME SNOMED Code(s): 37637358 (2) Community acquired pneumonia Current Visit: Yes Status: Acute Code(s): J18.9 - PNEUMONIA, UNSPECIFIED ORGANISM SNOMED Code(s): 668296320 Plan: Impression: 1. Medical debility. 2. Acute respiratory failure with hypoxia. 3. Multiple skin sores. 4. Hypertension. 5. Osteoarthritis. 6. Bleeding disorder. Comments and plan: At this time PT and OT are ongoing. Rehab prognosis currently guarded though. We'll follow closely with yourself but unsure patient will be able tolerate a full 3 hour program required for inpatient rehab.
[2019-07-13] MEDS: HEPARIN SOD,PORK IN 0.45% NACL 25,000 UNIT in 0.45% NACL 1 250ML.BAG IV SCH (11:05)
--- NOTE | 2019-07-13 11:27 | P.PN ---
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 coli sepsis secondary to UTI. The patient subsequently went into hypoxic respiratory failure requiring BiPAP for respiratory support with a component of fluid overload and possible pneumonia. In addition, the patient had acute kidney injury, atrial fibrillation with rapid ventricular response. He is known to have also peripheral vascular disease. The patient was placed on BiPAP for respiratory support and he was kept in the intensive care unit. In terms of his E. coli sepsis, urine culture and the blood culture was positive and the patient is still receiving IV antibiotics and the patient is currently on IV Zosyn. He is afebrile and he is hemodynamically stable on no pressors and the patient is not requiring any pressors. In fact, the patient is on amiodarone drip at 0.5 mg per minute and addition to Cardizem at 10 mg an hour for rate control regarding his atrial fibrillation. His echocardiogram was completed on 07/05/2019 and the patient was found to have a impaired LV function with an ejection fraction of 30-35% and mildly enlarged RV with a right-sided pulmonary artery pressure is estimated to be around 46 mmHg. His renal function was also abnormal. The patient developed an acute kidney injury, admission with a crea tinine of 4.6 which gradually improved during the course of his treatment with a decline in the creatinine levels. The patient also had a anion gap metabolic acidosis with gradually recovered. Nephrology is on the case. Ultrasound the kidneys did not show any significant hydronephrosis on this patient. The chest x-ray showed left basilar consolidation right perihilar opacity consistent with multifocal atelectasis/pneumonia. He is receiving PPN for nutritional support. He does have also comorbidities including hypertension, hyperlipidemia, COPD and addition to chronic alcohol use. On today's evaluation of 07/10/2019, the patient is lethargic and weak yet awake and following commands and answering questions appropriately. He is on 3 L of oxygen by nasal cannula. He is not utilizing his BiPAP for now. He remains in atrial fibrillation. He remains on amiodarone maintenance of 0.5 mg per minute. He is on IV Zosyn. His thrombocytopenia is improving. He is receiving PPN for nutritional support. He does have severe peripheral vascular disease along with chronic arterial necrot ic ulcers in his toes bilaterally in addition to some necrotic wounds in the ankles bilaterally worse on the right. He remains afebrile. On today's evaluation of 07/11/2019 the patient is essentially same yesterday. He is lethargic. He is weak. He follows some simple commands. He seems to be appropriate however profoundly weak. He passed a swallow evaluation. Nevertheless, he is oral intake is considered to be low and the patient will be kept on PPN for nutritional support. The patient's IV medication will be switched over to oral as the patient is on amiodarone and Cardizem drip for his atrial fibrillation. Is currently on 2 L of oxygen by nasal cannula. Urine culture came back positive for E. coli. For now, the patient is on oral amiodarone regarding his atrial fibrillation 400 mg by mouth twice a day. The patient is on Toprol 25 mg twice a day. He is receiving Levemir insulin 20 units daily at bedtime. Discontinuation of the IV Solu Medrol helped his blood sugar control. Nevertheless, the patient on PPN which is obviously contributing to his blood sugar elevation. No other significant events overnight. His resting comfortably in bed. On 07/12/2019, the patient is essentially the same condition. Oral intake is minimal and he is not eating much approximately 10-20% of his tray is being utilized on a daily basis. For that reason the patient is being supplemented with TPN for nutritional support. He remains on IV Zosyn. His urine culture came back positive for E. coli. Blood culture came back positive for E. coli. He is on 40s of oxygen by nasal cannula with a pulse ox of 91%. He is awake and alert and is following commands and answering questions. Nevertheless, he remains wide lethargic and weak and he is very much laying in bed without much o f an activity. He has extensive bruising over extremities in addition to severe peripheral vascular disease with chronic ulcerations and his toes bilaterally and these are arterial ulcers are quite necrotic. Vascular surgeries on the case and no surgical interventions to be done. Renal function continues to improve in the creatinine is down to 1.7. Hemoglobin is at 9 without any significant leukocytosis. The blood sugar is under adequate control as the patient is on Lantus insulin in addition to sliding scale coverage. On 07/13/2019, the patient is still doing poorly. Laying in bed. No significant respiratory distress. Nevertheless, he seems to be quite lethargic and he drifts to sleep if left unstimulated. I was told that he worked with physical therapy. His oral intake is still low and the patient is still receiving TPN for nutritional support. The patient is completing the course of his IV Zosyn regarding E. coli sepsis and the hemodynamic parameters is improved, his blood pressure is normalized, his renal function continues to improve and his platelet count is also normalized. On today's evaluation, the skin in the lower extremity and the feet of significantly more mottled and the patient has no Doppler pulses that I was able to identify in his legs. Based on that, I recommended an immediate vascular surgery reevaluation regarding this issue. I discussed this case with Dr. Ladd. We decided to put the patient IV heparin now that his platelet count has improved. No plans for any surgical intervention. He has extensive vascular disease with chronic arterial ulcers in lower extremities bilaterally. These ulcers are dry and necrotic and nondraining. No fever. No chills. He has had no bowel movement and the patient will be given l laxative in that regard. I was able to talk to the daughter yesterday. I discussed with her his poor prognosis based on the above- mentioned comorbidities. Obviously the vascular insufficiency is a significant issue for now. He is on Levemir insulin and the dose was adjusted up to 20 units along with his vascular coverage. Objective - Vital Signs Vital signs: Vital Signs Temp 98.4 F 07/13/19 08:00 Pulse 70 07/13/19 10:00 Resp 27 H 07/13/19 10:00 BP 134/71 07/13/19 10:00 Pulse Ox 96 07/13/19 10:00 Intake & Output 07/12/19 07/13/19 07/13/19 18:59 06:59 18:59 Intake Total 2772 2647 710 Output Total 965 1065 475 Balance 1807 1582 235 Weight 88.6 kg 86.2 kg Intake: IV 1525 1600 585 0.9 NS 120 120 40 Magnesium Sulfate-D5w Pmx 1200 100 1 gm In Dextrose/Water 1 100ml.bag @ 100 mls/hr IVPB Q1H [facility] Rx#: [id number] Mvi, Adult No.4 with Vit 105 K 10 ml Trace (Conc-1Ml/ Dose) 1 ml Sodium Acetate 30 meq Potassium Chloride 20 meq Calcium Gluconate 1 gm In Amino Acid 4.25%-D10w 1,000 ml @ 105 mls/hr IV .BY DURATION [facility] Rx#: [id number] Mvi, Adult No.4 with Vit 105 420 K 10 ml Trace (Conc-1Ml/ Dose) 1 ml Sodium Acetate 30 meq Potassium Chloride 40 meq Calcium Gluconate 1 gm Magnesium Sulfate gm 1 gm In Amino Acid 4.25%-D10w 1,000 ml @ 105 mls/hr IV .BY DURATION [facility] Rx#: [id number] Piperacillin-Tazobactam 3 100 .375 gm In Sodium Chloride 0.9% 100 ml @ 25 mls/hr IVPB Q12HR [facility] Rx #:[id number] Potassium Chloride 10 meq 100 In Water For Injection 1 100ml.bag @ 100 mls/hr IVPB Q1HR [facility] Rx#: [id number] Sodium Acetate 30 meq 1050 Potassium Chloride 40 meq Calcium Gluconate 1 gm Magnesium Sulfate gm 1 gm In Amino Acid 4.25%-D10w 1,000 ml @ 105 mls/hr IV .BY DURATION [facility] Rx#: [id number] Sodium Phosphate 10 mmol 125 125 In Sodium Chloride 0.9% 250 ml @ 125 mls/hr IVPB ONCE ONE Rx#:[id number] Intake, IV Titration 1047 1047 Amount Sodium Acetate 30 meq 1047 1047 Potassium Chloride 40 meq Calcium Gluconate 1 gm Magnesium Sulfate gm 1 gm In Amino Acid 4.25%-D10w 1,000 ml @ 105 mls/hr IV .BY DURATION [facility] Rx#: [id number] Oral 200 125 Output: Urine 965 1065 475 Other: Voiding Method Indwelling Catheter Indwelling Catheter Indwelling Catheter - Exam Gen. appearance the patient is calm and comfortable likely distress, he looks and appears to be quite sick and debilitated. Head exam was generally normal. There was no scleral icterus or corneal arcus. Mucous membranes were moist. Neck was supple and without jugular venous distension, thyromegaly, or carotid bruits. Carotids were easily palpable bilaterally. There was no adenopathy. heart sounds are irregular consistent with atrial fibrillat.Cardiac exam revealed the PMI to be normally situated and sized. The rhythm was regular and no extrasystoles were noted during several minutes of auscultation. The first and second heart sounds were normal and physiologic splitting of the second heart sound was noted. There were no murmurs, rubs, clicks, or gallops. Lungs sounds are diminished in lung bases along with coarse rhonchi and some bibasilar crackles are present. Abdominal exam revealed normal bowel sounds. The abdomen was soft, non-tender, and without masses, organomegaly, or appreciable enlargement of the abdominal aorta. Extremities the patient is known to have peripheral vascular disease and has significant ulceration in nonhealing wounds of the feet and the toes. There is significant acrocyanosis. There is also some mottling of the lower extremities. Skin reveals arterial necrotic ulcers in his toes bilaterally where several toes are necrotic and the patient has necrotic ankle wounds worse on the right lateral aspect of the ankle as well as chronic ecchymotic areas throughout his body. Pulses are absent in the feet bilaterally and the skin is mottled and the feet are extremely cold along with extensive arterial necrotic wounds in his feet and the toes bilaterally. Neurologically the patient is having global weakness and there is no focal neurological deficit at this point in time. - Labs CBC & Chem 7: 07/13/19 04:35 07/13/19 04:35 Labs: Abnormal Lab Results - Last 24 Hours (Table) 07/12/19 07/12/19 07/12/19 Range/Units 04:54 11:10 17:22 RBC (4.30-5.90) m/uL Hgb (13.0-17.5) gm/dL Hct (39.0-53.0) % MCV (80.0-100.0) fL MCH (25.0-35.0) pg RDW (11.5-15.5) % Plt Count (150-450) k/uL Neutrophils # (1.3-7.7) k/uL Lymphocytes # (1.0-4.8) k/uL Macrocytosis Sodium (137-145) mmol/L BUN (9-20) mg/dL Creatinine (0.66-1.25) mg/dL Glucose 204 H (74-99) mg/dL POC Glucose (mg/dL) 262 H (75-99) mg/dL Calcium (8.4-10.2) mg/dL Phosphorus (2.5-4.5) mg/dL Procalcitonin 2.56 H (0.02-0.09) ng/mL 07/12/19 07/13/19 07/13/19 Range/Units 19:47 04:35 04:35 RBC 2.10 L (4.30-5.90) m/uL Hgb 8.3 L (13.0-17.5) gm/dL Hct 26.1 L (39.0-53.0) % MCV 124.3 H D (80.0-100.0) fL MCH 39.4 H (25.0-35.0) pg RDW 18.8 H (11.5-15.5) % Plt Count 86 L (150-450) k/uL Neutrophils # 8.1 H (1.3-7.7) k/uL Lymphocytes # 0.5 L (1.0-4.8) k/uL Macrocytosis Marked A Sodium 135 L (137-145) mmol/L BUN 68 H (9-20) mg/dL Creatinine 1.45 H (0.66-1.25) mg/dL Glucose 218 H 193 H (74-99) mg/dL POC Glucose (mg/dL) (75-99) mg/dL Calcium 7.4 L (8.4-10.2) mg/dL Phosphorus 2.1 L (2.5-4.5) mg/dL Procalcitonin (0.02-0.09) ng/mL 07/13/19 Range/Units 06:28 RBC (4.30-5.90) m/uL Hgb (13.0-17.5) gm/dL Hct (39.0-53.0) % MCV (80.0-100.0) fL MCH (25.0-35.0) pg RDW (11.5-15.5) % Plt Count (150-450) k/uL Neutrophils # (1.3-7.7) k/uL Lymphocytes # (1.0-4.8) k/uL Macrocytosis Sodium (137-145) mmol/L BUN (9-20) mg/dL Creatinine (0.66-1.25) mg/dL Glucose (74-99) mg/dL POC Glucose (mg/dL) 127 H (75-99) mg/dL Calcium (8.4-10.2) mg/dL Phosphorus (2.5-4.5) mg/dL Procalcitonin (0.02-0.09) ng/mL Microbiology - Last 24 Hours (Table) 07/07/19 09:19 Blood Culture - Preliminary Blood No Growth after 120 hours Assessment and Plan Plan: 1 sepsis with E. coli bacteremia secondary to an underlying UTI currently on IV Zosyn. The patient is hemodynamically stable on no pressors for now. 2 acute hypoxic respiratory failure requiring BiPAP for respiratory supportsecondary to sepsis and possibly component of fluid overload/pneumonia in addition to an underlying COPD, currently improved. Nevertheless, the chest x- ray from today shows a new patchy right basilar opacity probably representing some atelectasis. There is improvement in the aeration of the left lung base. 3 altered mentation secondary to above, improved, profoundly weak, overall mental status improved considerably. Nevertheless, the patient is still lethargic and slow in answering questions and he is probably depressed. 4 acute kidney injury possibly with an underlying chronic kidney disease, improving and the patient's creatinine is down to 1.45 5 COPD 6 chronic atrial fibrillation with rapid ventricular response currently on a combination of IV amiodarone and IV Cardizem and these medications has been switched to oral as the patient is able to take oral medication. He'll be given oral amiodarone and Cardizem as stated earlier. He remains atrial fibrillation. Rate is under better control for now. 7 severe peripheral vascular disease, severe with chronic arterial ulcers in the lower extremities bilaterally with necrotic digits and necrotic once in the ankles with diminished pulses lower extremities bilaterally. On today's evaluation there are no pulses in lower extremities bilaterally. Vascular surgery was involved again and the patient will be started on IV heparin. 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 9 hyperlipidemia 10 hypertension 11 chronic history of alcoholism 12 anion gap metabolic acidosis, recovered 13 chronic anemia 14 chronic thrombocytopenia with acute drop in the platelet count, likely is consumptive secondary to sepsis, and the plated count is improving for now 15 PPN for nutritional support 16 diabetes mellitus currently on Levemir in addition to sliding scale coverage. Plan *The patient IV heparin and involve vascular surgery regarding the significant vascular insufficiency to the feet and to the upper extremities also Continued IV Zosyn Levemir insulin for blood sugar control in addition to sliding scale coverage Monitor renal function which is improving Monitor plated count which is improving, they're improved and we will to start IV heparin Continue rest of the supportive care. Long-term prognosis poor baseline above- mentioned comorbidities. I asked the nursing staff too. The patient's daughter to come and visit them here in the hospital. I think his long-term prognosis be poor as the patient is very much debilitated. I was able to talk to his daugh kera yesterday. Nothing much can be offered in terms of his care as the patient is quite debilitated. His prognosis remains extremely poor.
[2019-07-13 11:33] LABS: Glucose,Whole Blood 214 mg/dL (75-99)
--- NOTE | 2019-07-13 12:01 | P.PN ---
Subjective Progress Note Date: 07/13/19 Patient seen and examined in the ICU. He is lying in bed sleeping, but easily arousable. Patient is alert and oriented, follows command. No acute changes through the night. Breathing seems a little more labored today, however only requiring O2 per nasal cannula. Patient states pain in feet about the same, patient has pain in left hand with palpation. He is able to move bilateral upper and lower extremities, however not able to wiggle toes. Objective - Vital Signs Vital signs: Vital Signs Temp 98.4 F 07/13/19 08:00 Pulse 72 07/13/19 11:42 Resp 17 07/13/19 11:00 BP 142/80 07/13/19 11:00 Pulse Ox 97 07/13/19 11:00 Intake & Output 07/12/19 07/13/19 07/13/19 18:59 06:59 18:59 Intake Total 2772 2647 825 Output Total 965 1065 675 Balance 1807 1582 150 Weight 88.6 kg 86.2 kg Intake: IV 1525 1600 700 0.9 NS 120 120 50 Magnesium Sulfate-D5w Pmx 1200 100 1 gm In Dextrose/Water 1 100ml.bag @ 100 mls/hr IVPB Q1H [facility] Rx#: [id number] Mvi, Adult No.4 with Vit 105 K 10 ml Trace (Conc-1Ml/ Dose) 1 ml Sodium Acetate 30 meq Potassium Chloride 20 meq Calcium Gluconate 1 gm In Amino Acid 4.25%-D10w 1,000 ml @ 105 mls/hr IV .BY DURATION [facility] Rx#: [id number] Mvi, Adult No.4 with Vit 105 525 K 10 ml Trace (Conc-1Ml/ Dose) 1 ml Sodium Acetate 30 meq Potassium Chloride 40 meq Calcium Gluconate 1 gm Magnesium Sulfate gm 1 gm In Amino Acid 4.25%-D10w 1,000 ml @ 105 mls/hr IV .BY DURATION [facility] Rx#: [id number] Piperacillin-Tazobactam 3 100 .375 gm In Sodium Chloride 0.9% 100 ml @ 25 mls/hr IVPB Q12HR [facility] Rx #:[id number] Potassium Chloride 10 meq 100 In Water For Injection 1 100ml.bag @ 100 mls/hr IVPB Q1HR [facility] Rx#: [id number] Sodium Acetate 30 meq 1050 Potassium Chloride 40 meq Calcium Gluconate 1 gm Magnesium Sulfate gm 1 gm In Amino Acid 4.25%-D10w 1,000 ml @ 105 mls/hr IV .BY DURATION [facility] Rx#: [id number] Sodium Phosphate 10 mmol 125 125 In Sodium Chloride 0.9% 250 ml @ 125 mls/hr IVPB ONCE ONE Rx#:[id number] Intake, IV Titration 1047 1047 Amount Sodium Acetate 30 meq 1047 1047 Potassium Chloride 40 meq Calcium Gluconate 1 gm Magnesium Sulfate gm 1 gm In Amino Acid 4.25%-D10w 1,000 ml @ 105 mls/hr IV .BY DURATION [facility] Rx#: [id number] Oral 200 125 Output: Urine 965 1065 675 Other: Voiding Method Indwelling Catheter Indwelling Catheter Indwelling Catheter - Exam General appearance: The patient is alert and awake, in no acute distress. HET: Head is normocephalic and atraumatic. Neck: Supple without lymphadenopathy. Trachea midline. Heart: S1 S2. Regular rate and rhythm. Lungs: Diminished lung sounds with rhonchi. Abdomen: Soft, nontender, nondistended with bowel sounds. Extremities: Bilateral hands with purple coloring and mottling, bilateral palpable 2+ radial pulses. Left hand TTP. Mottling to bilateral lower extremities up to mid thigh. Bilateral lower extremities with nonpalpable pulses, and absent doppler signal at PT and DP. Bilateral femoral and popliteal Doppler signal. Ulcers on lateral side of bilateral ankles, with ulcerations to bilateral great toes and left second toe. Bilateral lower extremities cold to touch, delayed capillary refill. Patient is able to freely move bilateral lower extremities and toes, sensation is diminished in bilateral lower extremities. Neurological: More alert and orientated, responds and ansers questions appropriately. - Labs CBC & Chem 7: 07/13/19 04:35 07/13/19 04:35 Labs: Abnormal Lab Results - Last 24 Hours (Table) 07/12/19 07/12/19 07/12/19 Range/Units 04:54 17:22 19:47 RBC (4.30-5.90) m/uL Hgb (13.0-17.5) gm/dL Hct (39.0-53.0) % MCV (80.0-100.0) fL MCH (25.0-35.0) pg RDW (11.5-15.5) % Plt Count (150-450) k/uL Neutrophils # (1.3-7.7) k/uL Lymphocytes # (1.0-4.8) k/uL Macrocytosis Sodium (137-145) mmol/L BUN (9-20) mg/dL Creatinine (0.66-1.25) mg/dL Glucose 218 H (74-99) mg/dL POC Glucose (mg/dL) 262 H (75-99) mg/dL Calcium (8.4-10.2) mg/dL Phosphorus (2.5-4.5) mg/dL Procalcitonin 2.56 H (0.02-0.09) ng/mL 07/13/19 07/13/19 07/13/19 Range/Units 04:35 04:35 06:28 RBC 2.10 L (4.30-5.90) m/uL Hgb 8.3 L (13.0-17.5) gm/dL Hct 26.1 L (39.0-53.0) % MCV 124.3 H D (80.0-100.0) fL MCH 39.4 H (25.0-35.0) pg RDW 18.8 H (11.5-15.5) % Plt Count 86 L (150-450) k/uL Neutrophils # 8.1 H (1.3-7.7) k/uL Lymphocytes # 0.5 L (1.0-4.8) k/uL Macrocytosis Marked A Sodium 135 L (137-145) mmol/L BUN 68 H (9-20) mg/dL Creatinine 1.45 H (0.66-1.25) mg/dL Glucose 193 H (74-99) mg/dL POC Glucose (mg/dL) 127 H (75-99) mg/dL Calcium 7.4 L (8.4-10.2) mg/dL Phosphorus 2.1 L (2.5-4.5) mg/dL Procalcitonin (0.02-0.09) ng/mL 07/13/19 Range/Units 11:33 RBC (4.30-5.90) m/uL Hgb (13.0-17.5) gm/dL Hct (39.0-53.0) % MCV (80.0-100.0) fL MCH (25.0-35.0) pg RDW (11.5-15.5) % Plt Count (150-450) k/uL Neutrophils # (1.3-7.7) k/uL Lymphocytes # (1.0-4.8) k/uL Macrocytosis Sodium (137-145) mmol/L BUN (9-20) mg/dL Creatinine (0.66-1.25) mg/dL Glucose (74-99) mg/dL POC Glucose (mg/dL) 214 H (75-99) mg/dL Calcium (8.4-10.2) mg/dL Phosphorus (2.5-4.5) mg/dL Procalcitonin (0.02-0.09) ng/mL Microbiology - Last 24 Hours (Table) 07/07/19 09:19 Blood Culture - Preliminary Blood No Growth after 120 hours Assessment and Plan Assessment: 1. Bilateral lower extremity toe ulcerations, Kelly 5 peripheral arterial disease 2. Acute metabolic encephalopathy 3. Acute hypoxic respiratory failure, previously on BiPAP 4. Metabolic acidosis with acute kidney injury-stable 5. Acute kidney injury 6. History of abdominal aortic aneurysm status post repair 7. history of alcohol abuse and withdrawal 8. chronic anemia 9. thrombocytopenia Plan: No vascular intervention at this time. Plan is for possible future aortogram with runoff if patient to recover. Discussed with ICU team regarding starting anticoagulation. Heparin drip ordered. Keep bilateral off-loading boots on feet. The above dictated assessment and findings were discussed with Dr. Ladd. The impression and plan of care have been directed as dictated.
[2019-07-13] MEDS: THIAMINE 100 MG/ML 2 ML VIAL IVP SCH ×2 (12:07→23:39)
[2019-07-13 12:14] LABS: INR 1.1 (<1.2); Prothrombin Time 11.5 sec (9.0-12.0)
[2019-07-13 12:19] LABS: Anisocytosis Slight; Basophils % (A) 0 %; Eosinophils % (A) 0 %; HCT 25.7 % (39.0-53.0); Hypochromasia Moderate; Lymphocytes # (A) 0.4 k/uL (1.0-4.8); Lymphocytes % (A) 5 %; MCH 39.2 pg (25.0-35.0); MCHC 31.3 g/dL (31.0-37.0); MCV 125.2 fL (80.0-100.0); Macrocytosis Marked; Mean Platelet Volume 13.6; Monocytes # (A) 0.4 k/uL (0-1.0); Monocytes % (A) 5 %; Neutrophils # (A) 7.5 k/uL (1.3-7.7); Neutrophils % (A) 89 %; RBC 2.05 m/uL (4.30-5.90); RDW 18.8 % (11.5-15.5); WBC 8.4 k/uL (3.8-10.6)
[2019-07-13 12:30] LABS: Platelet Count 89 k/uL (150-450)
[2019-07-13 13:24] LABS: Poikilocytosis (M) Present; Polychromasia Present
--- NOTE | 2019-07-13 14:01 | PN ---
PROGRESS NOTE REASON FOR FOLLOWUP: Acute kidney injury. On examination, blood pressure is , heart rate is 71 per minute. LABS: White cell count 8.4, sodium 135, ASSESSMENT: 1. Acute kidney injury, ATN, currently significantly improved. 2. . 3. Cardiomyopathy, ejection fraction of 30% to 35%. PLAN: MMJEAN CARLOS / IJN: [id number] /
--- NOTE | 2019-07-13 14:14 | P.PN ---
Subjective Progress Note Date: 07/13/19 Principal diagnosis: Altered mental status Patient was seen and examined. No acute events overnight. Patient currently being treated for E. coli UTI sepsis with hydronephrosis. Also has respiratory failure secondary to CHF, COPD and possible pneumonia. Also in A. fib with RVR. Has history of PAD with necrotic lower extremity wounds. His condition has not changed much over the last couple of days. He is currently off of BiPAP and is saturating low 90s on 2L nasal cannula. He is currently on oral amiodarone and metoprolol. Patient has converted to sinus rhythm. He is receiving Zosyn for E. coli bacteremia. Currently on parenteral nutrition. He denies any chest pain, shortness of breath or palpitations. No nausea or vomiting. No fever or chills. He was evaluated by vascular surgery stating no vascular intervention at this time for his distal necrotic wounds. Vascular surgery is decided to start the patient on heparin drip. Objective - Vital Signs Vital signs: Vital Signs Temp 98.4 F 07/13/19 08:00 Pulse 72 07/13/19 11:42 Resp 17 07/13/19 11:00 BP 142/80 07/13/19 11:00 Pulse Ox 97 07/13/19 11:00 Intake & Output 07/12/19 07/13/19 07/13/19 18:59 06:59 18:59 Intake Total 2772 2647 825 Output Total 965 1065 675 Balance 1807 1582 150 Weight 88.6 kg 86.2 kg Intake: IV 1525 1600 700 0.9 NS 120 120 50 Magnesium Sulfate-D5w Pmx 1200 100 1 gm In Dextrose/Water 1 100ml.bag @ 100 mls/hr IVPB Q1H [facility] Rx#: [id number] Mvi, Adult No.4 with Vit 105 K 10 ml Trace (Conc-1Ml/ Dose) 1 ml Sodium Acetate 30 meq Potassium Chloride 20 meq Calcium Gluconate 1 gm In Amino Acid 4.25%-D10w 1,000 ml @ 105 mls/hr IV .BY DURATION [facility] Rx#: [id number] Mvi, Adult No.4 with Vit 105 525 K 10 ml Trace (Conc-1Ml/ Dose) 1 ml Sodium Acetate 30 meq Potassium Chloride 40 meq Calcium Gluconate 1 gm Magnesium Sulfate gm 1 gm In Amino Acid 4.25%-D10w 1,000 ml @ 105 mls/hr IV .BY DURATION [facility] Rx#: [id number] Piperacillin-Tazobactam 3 100 .375 gm In Sodium Chloride 0.9% 100 ml @ 25 mls/hr IVPB Q12HR [facility] Rx #:[id number] Potassium Chloride 10 meq 100 In Water For Injection 1 100ml.bag @ 100 mls/hr IVPB Q1HR [facility] Rx#: [id number] Sodium Acetate 30 meq 1050 Potassium Chloride 40 meq Calcium Gluconate 1 gm Magnesium Sulfate gm 1 gm In Amino Acid 4.25%-D10w 1,000 ml @ 105 mls/hr IV .BY DURATION [facility] Rx#: [id number] Sodium Phosphate 10 mmol 125 125 In Sodium Chloride 0.9% 250 ml @ 125 mls/hr IVPB ONCE ONE Rx#:[id number] Intake, IV Titration 1047 1047 Amount Sodium Acetate 30 meq 1047 1047 Potassium Chloride 40 meq Calcium Gluconate 1 gm Magnesium Sulfate gm 1 gm In Amino Acid 4.25%-D10w 1,000 ml @ 105 mls/hr IV .BY DURATION [facility] Rx#: [id number] Oral 200 125 Output: Urine 965 1065 675 Other: Voiding Method Indwelling Catheter Indwelling Catheter Indwelling Catheter - Exam General: [Appears toxic older than stated age], [no distress], [appears at stated age] Derm: [warm], [dry] Head: [atraumatic], [normocephalic], [symmetric] Eyes: [EOMI], [no lid lag], [anicteric sclera] Mouth: [no lip lesion], [mucus membranes moist] Cardiovascular: [S1S2 regular], [no murmur], [unable to palpate DP or PT pulses in either extremities], Lungs: [Decreased breath sounds bilateral], [no rhonchi, no rales] , [no accessory muscle use] Abdominal: [soft], [ nontender to palpation], [nondistended], [no appreciable organomegaly] Ext: [no gross muscle atrophy], [no edema], [necrotic, ulcerated wounds in bilateral feet and toes], [scattered ecchymosis in all 4 extremities] Neuro: [Moving all 4 extremities with no focal neurologic deficits] Psych: [Alert and oriented 2-3] - Labs CBC & Chem 7: 07/13/19 11:40 07/13/19 04:35 Labs: Abnormal Lab Results - Last 24 Hours (Table) 07/12/19 07/12/19 07/12/19 Range/Units 04:54 17:22 19:47 RBC (4.30-5.90) m/uL Hgb (13.0-17.5) gm/dL Hct (39.0-53.0) % MCV (80.0-100.0) fL MCH (25.0-35.0) pg RDW (11.5-15.5) % Plt Count (150-450) k/uL Neutrophils # (1.3-7.7) k/uL Lymphocytes # (1.0-4.8) k/uL Macrocytosis Sodium (137-145) mmol/L BUN (9-20) mg/dL Creatinine (0.66-1.25) mg/dL Glucose 218 H (74-99) mg/dL POC Glucose (mg/dL) 262 H (75-99) mg/dL Calcium (8.4-10.2) mg/dL Phosphorus (2.5-4.5) mg/dL Procalcitonin 2.56 H (0.02-0.09) ng/mL 07/13/19 07/13/19 07/13/19 Range/Units 04:35 04:35 06:28 RBC 2.10 L (4.30-5.90) m/uL Hgb 8.3 L (13.0-17.5) gm/dL Hct 26.1 L (39.0-53.0) % MCV 124.3 H D (80.0-100.0) fL MCH 39.4 H (25.0-35.0) pg RDW 18.8 H (11.5-15.5) % Plt Count 86 L (150-450) k/uL Neutrophils # 8.1 H (1.3-7.7) k/uL Lymphocytes # 0.5 L (1.0-4.8) k/uL Macrocytosis Marked A Sodium 135 L (137-145) mmol/L BUN 68 H (9-20) mg/dL Creatinine 1.45 H (0.66-1.25) mg/dL Glucose 193 H (74-99) mg/dL POC Glucose (mg/dL) 127 H (75-99) mg/dL Calcium 7.4 L (8.4-10.2) mg/dL Phosphorus 2.1 L (2.5-4.5) mg/dL Procalcitonin (0.02-0.09) ng/mL 07/13/19 07/13/19 Range/Units 11:33 11:40 RBC 2.05 L (4.30-5.90) m/uL Hgb 8.0 L (13.0-17.5) gm/dL Hct 25.7 L (39.0-53.0) % MCV 125.2 H (80.0-100.0) fL MCH 39.2 H (25.0-35.0) pg RDW 18.8 H (11.5-15.5) % Plt Count 89 L (150-450) k/uL Neutrophils # (1.3-7.7) k/uL Lymphocytes # 0.4 L (1.0-4.8) k/uL Macrocytosis Marked A Sodium (137-145) mmol/L BUN (9-20) mg/dL Creatinine (0.66-1.25) mg/dL Glucose (74-99) mg/dL POC Glucose (mg/dL) 214 H (75-99) mg/dL Calcium (8.4-10.2) mg/dL Phosphorus (2.5-4.5) mg/dL Procalcitonin (0.02-0.09) ng/mL Microbiology - Last 24 Hours (Table) 07/07/19 09:19 Blood Culture - Final Blood No Growth after 144 hours Assessment and Plan Assessment: Severe PAD with Debility Sepsis with E. coli UTI and bacteremia Acute renal failure with Left-sided hydronephrosis Acute metabolic encephalopathy Acute hypoxic respiratory failure secondary to COPD, CHF and possible pneumonia rule out COVID Atrial fibrillation with RVR Steroid-induced hyperglycemia Thrombocytopenia with macrocytic anemia Troponin elevation History of alcohol abuse Plans: No intervention planned by vascular surgery as of yet. Heparin drip started by vascular surgery. PT and OT consulted. PMR consulted for possible inpatient rehab. CT aorta with runoff planned if patient is able to recover. Blood culture and urine culture positive for E. coli. Repeat blood cultures negative at 144 hours. Plans: Continue Zosyn. Follow repeat blood cultures. Infectious disease on board. BUN 578-21-38-78-68, creatinine 2.76-2.27-1.86-1.73-1.45. Also with left-sided hydronephrosis. Plans: Urology evaluated patient for hydronephrosis, found to be mild in nature with nothing further from a urologic standpoint. Avoid nephrotoxins. Repeat BMP tomorrow morning. Nephrology following. His metabolic encephalopathy is likely related to sepsis with E. coli bacteremia along with acute hypoxic respiratory failure. This has been improving over the last 4 days. This morning chest x-ray shows stable exam with consolidation on the left and multifocal right-sided atelectasis. Plans: Continue Pulmicort. Continue formot ang. DuoNeb scheduled and as needed for shortness of breath and wheezing. Continue Solu-Medrol. O2 per NC to maintain O2 saturation greater than 92%. Low threshold for intubation. Pulmonology on board. Patient's heart rate is currently regular. Plans: Patient will be continued on oral Metoprolol and amiodarone. Heparin drip started for anticoagulation. Cardiology on board. [id number] glucose 214. Plans: Levemir 20 units at bedtime. Insulin sliding scale. Regular Accu-Cheks. Hypoglycemic precautions. Platelet count of 89. g 8 with MCV 125.2. Also with chronic alcohol abuse. Jey ns: No obvious signs of gross bleeding. Hemoglobin remaining stable at 9. Repeat CBC tomorrow morning. Transfuse if platelet count less than 10. Troponin 0.061, 0.105, 0.125. Likely demand ischemia from A. fib with RVR also sepsis. Acute coronary syndrome ruled out. Plans: Follow cardiology re commendations. Plans: Continue to monitor for signs and symptoms of withdrawal. [Patient admitted for E. coli bacteremia and sepsis, repeat blood culture negative so far, on IV Abx. Found to have acute renal failure which is improving. Also hypoxic respiratory failure from COPD, CHF and possible PNA which is also improving. Started on heparin drip by vascular surgery for severe PAD and necrotic distal wounds. Prognosis is guarded. Plans for possible DC to inpatient rehab, SW on board.]
[2019-07-13] MEDS: 1: MVI, ADULT NO.4 WITH VIT K 10 ML, TRACE (CONC-1ML/DOSE) 1 ML in AMINO ACID 4.25%-D10W IV SCH ×6 (18:25→18:28)
[2019-07-13 18:37] LABS: Glucose,Whole Blood 112 mg/dL (75-99)
[2019-07-13 19:30] LABS: Glucose,Whole Blood 171 mg/dL (75-99)
[2019-07-13] MEDS: HEPARIN SODIUM,PORCINE 5,000 UNIT/ML 1 ML VIAL IV PRN (20:26)
[2019-07-13] MEDS: INSULIN DETEMIR (LEVEMIR) 100 UNIT/ML SYR SQ SCH (20:30)
--- NOTE | 2019-07-13 23:09 | PN ---
PROGRESS NOTE DATE OF SERVICE: 07/13/2019 REASON FOR FOLLOWUP: 1. E coli UTI and bacteremia. 2. Aspiration pneumonia. INTERVAL HISTORY: The patient is currently afebrile, has been breathing comfortably. Denies having chest pain. Occasional cough. No abdominal pain or diarrhea. PHYSICAL EXAMINATION: Blood pressure 107/74 with a pulse of 83, temperature 96.7. He is 93% on 2 L nasal cannula. General description is an elderly male lying in bed in no distress. RESPIRATORY SYSTEM: Unlabored breathing. Clear to auscultation anteriorly. HEART: S1, S2. Regular rate and rhythm. ABDOMEN: Soft. No tenderness. EXTREMITIES: Significant ischemic changes to both feet. LABS: Hemoglobin 8, white count 8.4. DIAGNOSTIC IMPRESSION AND PLAN: Patient with Escherichia coli bacteremia secondary to urinary source in this patient with a component of aspiration pneumonia. Patient is covered with Zosyn; to be continued while inpatient. Transition to oral antibiotic on discharge. Continue supportive care. MMODL / IJN: [id number] /
[2019-07-14 03:30] LABS: Anisocytosis Slight; HCT 25.6 % (39.0-53.0); HGB 7.8 gm/dL (13.0-17.5); Hypochromasia Marked; MCH 40.1 pg (25.0-35.0); MCHC 30.6 g/dL (31.0-37.0); Macrocytosis Marked; Mean Platelet Volume 12.4; Platelet Count 113 k/uL (150-450); RBC 1.96 m/uL (4.30-5.90); RDW 19.2 % (11.5-15.5); WBC 12.1 k/uL (3.8-10.6)
[2019-07-14 03:35] LABS: MCV 130.9 fL (80.0-100.0)
[2019-07-14] MEDS: IPRATROPIUM-ALBUTEROL 3 ML NEB INHALATION PRN (03:40)
[2019-07-14] MEDS: 1: MVI, ADULT NO.4 WITH VIT K 10 ML, TRACE (CONC-1ML/DOSE) 1 ML in AMINO ACID 4.25%-D10W IV SCH ×3 (03:47)
[2019-07-14] MEDS: HEPARIN SODIUM,PORCINE 5,000 UNIT/ML 1 ML VIAL IV PRN (03:55)
[2019-07-14 04:13] LABS: Calcium 7.4 mg/dL (8.4-10.2); Phosphorus 3.5 mg/dL (2.5-4.5)
[2019-07-14 04:20] LABS: Band Neutrophils % 4 %; Lymphocytes # (M) 0.36 k/uL (1.0-4.8); Monocytes # (M) 0.85 k/uL (0-1.0); Myelocytes # (M) 0.12 k/uL (0); Myelocytes % 1 %; Neutrophils % (M) 86 %; Nucleated Red Blood Cells 0 /100 WBC (0-0); Polychromasia Present; Total Cells Counted 200
--- NOTE | 2019-07-14 06:40 | XR ---
EXAMINATION TYPE: XR chest 1V DATE OF EXAM: 07/14/2019 CLINICAL HISTORY: Difficulty breathing and pneumonia progress study. TECHNIQUE: Single AP portable upright view of the chest is obtained. COMPARISON: Chest x-ray from one day earlier and older studies. FINDINGS: Stable right-sided PICC line. Persistent slightly Elevated right hemidiaphragm and low cathleen g volumes with left greater than right bibasilar opacities. Improving midlung opacities. Upper lungs remain clear without pneumothorax. Persistent cardiomegaly with atherosclerotic and ectatic thoracic aorta. Old left lateral mid rib fractures redemonstrated. Partial visualization of distal aortic sten t graft once again noted. IMPRESSION: Low lung volumes and cardiomegaly with left greater than right bibasilar acute infiltrate and/or atelectasis felt fairly stable. Improving right midlung acute infiltrate noted.
[2019-07-14 06:48] LABS: Glucose,Whole Blood 177 mg/dL (75-99)
[2019-07-14] MEDS: INSULIN ASPART (NovoLOG) 100 UNIT/ML VIAL SQ SCH ×4 (06:52→20:56)
[2019-07-14] MEDS: IPRATROPIUM-ALBUTEROL 3 ML NEB INHALATION SCH ×4 (07:23→18:49)
[2019-07-14] MEDS: FORMOTEROL FUMARATE 20 MCG/2 ML NEBU INHALATION SCH ×2 (07:23→18:50)
[2019-07-14] MEDS: BUDESONIDE 1 MG/2 ML NEBU INHALATION SCH ×2 (07:23→18:50)
--- NOTE | 2019-07-14 07:48 | P.PN ---
Subjective Progress Note Date: 07/14/19 Principal diagnosis: paroxysmal atrial fibrillation This is a 73-year-old gentleman with extensive past medical history consistent for thrombocytopenia, chronic kidney disease, as well as multiple comorbid conditions, was brought to the emergency room by his daughter because the patient was not feeling well. Currently the patient is lethargic and the history was taken from the chart. Also the history was taken from the nurse at bedside. The patient was brought to the emergency room by his daughter. Apparently he fell at home several times. He was drinking alcohol excessively. No indication of any symptoms of chest pain or chest discomfort or shortness of breath. No indication of any history of coronary artery disease or congestive heart failure or cardiac arrhythmia. When the patient was seen in the emergency department he was quite hypotensive and required IV fluid excessively. Also he was found to be in acute renal failure. Nephrology is on the case. The patient was seen today, July [id number]. He remains in normal sinus mechanism. Overall clinically he is better. He does have severe peripheral arterial disease/critical limb ischemia and currently he is under the care of vascular surgery. At this point, I am going to start the patient on small dose of SANTOSH inhibitor was lisinopril in view of the cardiomyopathy. Continue the current dose of amiodarone as well as metoprolol. 4 some reasons, he was restarted on heparin IV. His platelet still low. He does need to be on oral anticoagulation for the atrial fibrillation once the platelet is improved. Objective - Vital Signs Vital signs: Vital Signs Temp 97.3 F L 07/14/19 04:00 Pulse 81 07/14/19 07:36 Resp 28 H 07/14/19 07:00 BP 147/99 07/14/19 07:00 Pulse Ox 92 L 07/14/19 07:00 Intake & Output 07/13/19 07/14/19 07/14/19 18:59 06:59 18:59 Intake Total 1630 2645.919 115 Output Total 1350 1260 125 Balance 280 1385.919 -10 Weight 85.3 kg Intake: IV 1505 1480 115 0.9 NS 120 120 10 Amino Acid 4.25%-D10w+ 840 Lytes*E* 1,000 ml @ 105 mls/hr IV .BY DURATION [facility] Rx#:[id number] Mvi, Adult No.4 with Vit 315 105 K 10 ml Trace (Conc-1Ml/ Dose) 1 ml In Amino Acid 4.25%-D10w+Lytes*E* 1,000 ml @ 105 mls/hr IV .BY DURATION [facility] Rx#: [id number] Mvi, Adult No.4 with Vit 1260 105 K 10 ml Trace (Conc-1Ml/ Dose) 1 ml Sodium Acetate 30 meq Potassium Chloride 40 meq Calcium Gluconate 1 gm Magnesium Sulfate gm 1 gm In Amino Acid 4.25%-D10w 1,000 ml @ 105 mls/hr IV .BY DURATION [facility] Rx#: [id number] Piperacillin-Tazobactam 3 100 .375 gm In Sodium Chloride 0.9% 100 ml @ 25 mls/hr IVPB Q12HR [facility] Rx #:[id number] Sodium Phosphate 10 mmol 125 In Sodium Chloride 0.9% 250 ml @ 125 mls/hr IVPB ONCE ONE Rx#:[id number] Intake, IV Titration 1165.919 Amount Amino Acid 4.25%-D10w+ 978.25 Lytes*E* 1,000 ml @ 105 mls/hr IV .BY DURATION [facility] Rx#:[id number] Heparin Sod,Pork in 0.45% 187.669 NaCl 25,000 unit In 0.45 % NaCl 1 250ml.bag @ 11.6 UNITS/KG/HR 9.999 mls/hr IV .Q24H [facility] Rx#: [id number] Oral 125 Output: Urine 1350 1260 125 Other: Voiding Method Indwelling Catheter Indwelling Catheter - Constitutional General appearance: Present: no acute distress - Respiratory Respiratory: bilateral: wheezing - Cardiovascular Rhythm: regular Heart sounds: normal: S1, S2 - Labs CBC & Chem 7: 07/14/19 03:16 07/14/19 03:16 Labs: Abnormal Lab Results - Last 24 Hours (Table) 07/13/19 07/13/19 07/13/19 Range/Units 11:33 11:40 18:35 WBC (3.8-10.6) k/uL RBC 2.05 L (4.30-5.90) m/uL Hgb 8.0 L (13.0-17.5) gm/dL Hct 25.7 L (39.0-53.0) % MCV 125.2 H (80.0-100.0) fL MCH 39.2 H (25.0-35.0) pg MCHC (31.0-37.0) g/dL RDW 18.8 H (11.5-15.5) % Plt Count 89 L (150-450) k/uL Neutrophils # (Manual) (1.3-7.7) k/uL Lymphocytes # 0.4 L (1.0-4.8) k/uL Lymphocytes # (Manual) (1.0-4.8) k/uL Myelocytes # (Manual) (0) k/uL Macrocytosis Marked A APTT (22.0-30.0) sec Sodium (137-145) mmol/L Carbon Dioxide (22-30) mmol/L BUN (9-20) mg/dL Creatinine (0.66-1.25) mg/dL Glucose (74-99) mg/dL POC Glucose (mg/dL) 214 H 112 H (75-99) mg/dL Calcium (8.4-10.2) mg/dL 07/13/19 07/13/19 07/14/19 Range/Units 19:29 19:30 03:16 WBC 12.1 H (3.8-10.6) k/uL RBC 1.96 L (4.30-5.90) m/uL Hgb 7.8 L (13.0-17.5) gm/dL Hct 25.6 L (39.0-53.0) % MCV 130.9 H D (80.0-100.0) fL MCH 40.1 H (25.0-35.0) pg MCHC 30.6 L (31.0-37.0) g/dL RDW 19.2 H (11.5-15.5) % Plt Count 113 L (150-450) k/uL Neutrophils # (Manual) 10.80 H (1.3-7.7) k/uL Lymphocytes # (1.0-4.8) k/uL Lymphocytes # (Manual) 0.36 L (1.0-4.8) k/uL Myelocytes # (Manual) 0.12 H (0) k/uL Macrocytosis Marked A APTT 30.6 H (22.0-30.0) sec Sodium (137-145) mmol/L Carbon Dioxide (22-30) mmol/L BUN (9-20) mg/dL Creatinine (0.66-1.25) mg/dL Glucose (74-99) mg/dL POC Glucose (mg/dL) 171 H (75-99) mg/dL Calcium (8.4-10.2) mg/dL 07/14/19 07/14/19 07/14/19 Range/Units 03:16 03:16 06:47 WBC (3.8-10.6) k/uL RBC (4.30-5.90) m/uL Hgb (13.0-17.5) gm/dL Hct (39.0-53.0) % MCV (80.0-100.0) fL MCH (25.0-35.0) pg MCHC (31.0-37.0) g/dL RDW (11.5-15.5) % Plt Count (150-450) k/uL Neutrophils # (Manual) (1.3-7.7) k/uL Lymphocytes # (1.0-4.8) k/uL Lymphocytes # (Manual) (1.0-4.8) k/uL Myelocytes # (Manual) (0) k/uL Macrocytosis APTT 39.0 H (22.0-30.0) sec Sodium 134 L (137-145) mmol/L Carbon Dioxide 19 L (22-30) mmol/L BUN 65 H (9-20) mg/dL Creatinine 1.38 H (0.66-1.25) mg/dL Glucose 155 H (74-99) mg/dL POC Glucose (mg/dL) 177 H (75-99) mg/dL Calcium 7.4 L (8.4-10.2) mg/dL Microbiology - Last 24 Hours (Table) 07/07/19 09:19 Blood Culture - Final Blood No Growth after 144 hours Assessment and Plan Assessment: assessment Acute renal failure severe thrombocytopenia Paroxysmal atrial fibrillation Respiratory failure Possible pneumonia Plan #1 continue the current dose of amiodarone and the current dose of metoprolol #2 continue monitor the kidney function and electrolytes #3 continue monitor the hemoglobin #4 start the patient on a small dose of lisinopril #5 start the patient on Aldactone down the line #6 start the patient on oral anticoagulation once the platelet improved
[2019-07-14] MEDS: PIPERACILLIN-TAZOBACTAM 3.375 GM in SODIUM CHLORIDE 0.9% 100 ML IVPB SCH ×2 (08:41→16:07)
[2019-07-14] MEDS: PANTOPRAZOLE 40 MG/10 ML VIAL IV SCH (08:42)
[2019-07-14] MEDS: AMIODARONE 200 MG TAB PO SCH ×2 (08:42→20:54)
[2019-07-14] MEDS: METOPROLOL TARTRATE 50 MG TAB PO SCH ×2 (08:42→22:03)
[2019-07-14] MEDS: HEPARIN SOD,PORK IN 0.45% NACL 25,000 UNIT in 0.45% NACL 1 250ML.BAG IV SCH (08:48)
[2019-07-14] MEDS ORDERED: LISINOPRIL 10 MG TAB PO SCH (09:00)
[2019-07-14] MEDS ORDERED: FAT EMULSION 20% 250 ML in EMPTY BAG 1 BAG IV SCH (09:00)
[2019-07-14] MEDS ORDERED: PROPOFOL 10 MG/ML 20 ML VIAL IV ONE (10:45)
[2019-07-14] MEDS ORDERED: ROCURONIUM BROMIDE 10 MG/ML 5 ML VIAL IV ONE (10:45)
--- NOTE | 2019-07-14 10:58 | P.PN ---
Subjective Progress Note Date: 07/14/19 Patient seen and examined in the ICU. Patient is sleeping at this time easily arousable. No acute changes through the night. Patient was started on heparin drip yesterday, and has tolerated well. Objective - Vital Signs Vital signs: Vital Signs Temp 97.3 F L 07/14/19 04:00 Pulse 80 07/14/19 08:00 Resp 17 07/14/19 08:00 BP 138/98 07/14/19 08:00 Pulse Ox 95 07/14/19 08:00 Intake & Output 07/13/19 07/14/19 07/14/19 18:59 06:59 18:59 Intake Total 1630 2645.919 177.331 Output Total 1350 1260 125 Balance 280 1385.919 52.331 Weight 85.3 kg 85.3 kg Intake: IV 1505 1480 115 0.9 NS 120 120 10 Amino Acid 4.25%-D10w+ 840 Lytes*E* 1,000 ml @ 105 mls/hr IV .BY DURATION [facility] Rx#:[id number] Mvi, Adult No.4 with Vit 315 105 K 10 ml Trace (Conc-1Ml/ Dose) 1 ml In Amino Acid 4.25%-D10w+Lytes*E* 1,000 ml @ 105 mls/hr IV .BY DURATION [facility] Rx#: [id number] Mvi, Adult No.4 with Vit 1260 105 K 10 ml Trace (Conc-1Ml/ Dose) 1 ml Sodium Acetate 30 meq Potassium Chloride 40 meq Calcium Gluconate 1 gm Magnesium Sulfate gm 1 gm In Amino Acid 4.25%-D10w 1,000 ml @ 105 mls/hr IV .BY DURATION [facility] Rx#: [id number] Piperacillin-Tazobactam 3 100 .375 gm In Sodium Chloride 0.9% 100 ml @ 25 mls/hr IVPB Q12HR [facility] Rx #:[id number] Sodium Phosphate 10 mmol 125 In Sodium Chloride 0.9% 250 ml @ 125 mls/hr IVPB ONCE ONE Rx#:[id number] Intake, IV Titration 1165.919 62.331 Amount Amino Acid 4.25%-D10w+ 978.25 Lytes*E* 1,000 ml @ 105 mls/hr IV .BY DURATION [facility] Rx#:[id number] Heparin Sod,Pork in 0.45% 187.669 62.331 NaCl 25,000 unit In 0.45 % NaCl 1 250ml.bag @ 11.6 UNITS/KG/HR 9.999 mls/hr IV .Q24H [facility] Rx#: [id number] Oral 125 Output: Urine 1350 1260 125 Other: Voiding Method Indwelling Catheter Indwelling Catheter - Exam General appearance: The patient was sleeping, is easily arousable and awake, in no acute distress. HET: Head is normocephalic and atraumatic. Neck: Supple without lymphadenopathy. Trachea midline. Heart: S1 S2. Regular rate and rhythm. Lungs: Diminished lung sounds with rhonchi. Abdomen: Soft, nontender, nondistended with bowel sounds. Extremities: Bilateral hands with purple coloring and mottling, left greater than right, bilateral palpable 2+ radial pulses. Left hand TTP. Mottling to bilateral lower extremities up to mid thigh. Bilateral lower extremities with nonpalpable pulses, and absent doppler signal at PT and DP. Bilateral femoral and popliteal Doppler signal. Ulcers on lateral side of bilateral ankles, with ulcerations to bilateral great toes and left second toe. Bilateral lower extremities cold to touch, delayed capillary refill. Patient is able to freely move bilateral lower extremities and toes, sensation is diminished in bilateral lower extremities. Neurological: More alert and orientated, responds and answers questions appropriately. - Labs CBC & Chem 7: 07/14/19 03:16 07/14/19 03:16 Labs: Abnormal Lab Results - Last 24 Hours (Table) 07/13/19 07/13/19 07/13/19 Range/Units 11:33 11:40 18:35 WBC (3.8-10.6) k/uL RBC 2.05 L (4.30-5.90) m/uL Hgb 8.0 L (13.0-17.5) gm/dL Hct 25.7 L (39.0-53.0) % MCV 125.2 H (80.0-100.0) fL MCH 39.2 H (25.0-35.0) pg MCHC (31.0-37.0) g/dL RDW 18.8 H (11.5-15.5) % Plt Count 89 L (150-450) k/uL Neutrophils # (Manual) (1.3-7.7) k/uL Lymphocytes # 0.4 L (1.0-4.8) k/uL Lymphocytes # (Manual) (1.0-4.8) k/uL Myelocytes # (Manual) (0) k/uL Macrocytosis Marked A APTT (22.0-30.0) sec Sodium (137-145) mmol/L Carbon Dioxide (22-30) mmol/L BUN (9-20) mg/dL Creatinine (0.66-1.25) mg/dL Glucose (74-99) mg/dL POC Glucose (mg/dL) 214 H 112 H (75-99) mg/dL Calcium (8.4-10.2) mg/dL 07/13/19 07/13/19 07/14/19 Range/Units 19:29 19:30 03:16 WBC 12.1 H (3.8-10.6) k/uL RBC 1.96 L (4.30-5.90) m/uL Hgb 7.8 L (13.0-17.5) gm/dL Hct 25.6 L (39.0-53.0) % MCV 130.9 H D (80.0-100.0) fL MCH 40.1 H (25.0-35.0) pg MCHC 30.6 L (31.0-37.0) g/dL RDW 19.2 H (11.5-15.5) % Plt Count 113 L (150-450) k/uL Neutrophils # (Manual) 10.80 H (1.3-7.7) k/uL Lymphocytes # (1.0-4.8) k/uL Lymphocytes # (Manual) 0.36 L (1.0-4.8) k/uL Myelocytes # (Manual) 0.12 H (0) k/uL Macrocytosis Marked A APTT 30.6 H (22.0-30.0) sec Sodium (137-145) mmol/L Carbon Dioxide (22-30) mmol/L BUN (9-20) mg/dL Creatinine (0.66-1.25) mg/dL Glucose (74-99) mg/dL POC Glucose (mg/dL) 171 H (75-99) mg/dL Calcium (8.4-10.2) mg/dL 06/05/20 06/05/20 06/05/20 Range/Units 03:16 03:16 06:47 WBC (3.8-10.6) k/uL RBC (4.30-5.90) m/uL Hgb (13.0-17.5) gm/dL Hct (39.0-53.0) % MCV (80.0-100.0) fL MCH (25.0-35.0) pg MCHC (31.0-37.0) g/dL RDW (11.5-15.5) % Plt Count (150-450) k/uL Neutrophils # (Manual) (1.3-7.7) k/uL Lymphocytes # (1.0-4.8) k/uL Lymphocytes # (Manual) (1.0-4.8) k/uL Myelocytes # (Manual) (0) k/uL Macrocytosis APTT 39.0 H (22.0-30.0) sec Sodium 134 L (137-145) mmol/L Carbon Dioxide 19 L (22-30) mmol/L BUN 65 H (9-20) mg/dL Creatinine 1.38 H (0.66-1.25) mg/dL Glucose 155 H (74-99) mg/dL POC Glucose (mg/dL) 177 H (75-99) mg/dL Calcium 7.4 L (8.4-10.2) mg/dL Microbiology - Last 24 Hours (Table) 07/07/19 09:19 Blood Culture - Final Blood No Growth after 144 hours Assessment and Plan Assessment: 1. Bilateral lower extremity toe ulcerations, [place] 5 peripheral arterial disease 2. Acute metabolic encephalopathy 3. Acute hypoxic respiratory failure, previously on BiPAP 4. Metabolic acidosis with acute kidney injury-stable 5. Acute kidney injury 6. History of abdominal aortic aneurysm status post repair 7. history of alcohol abuse and withdrawal 8. chronic anemia 9. thrombocytopenia Plan: No vascular intervention at this time. Plan is for possible future aortogram with runoff if patient to recover. Continue with heparin drip if platelets stable. Keep bilateral off-loading boots on feet. The above dictated assessment and findings were discussed with Dr. Ladd. The impression and plan of care have been directed as dictated.
--- NOTE | 2019-07-14 11:38 | P.PN ---
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 coli sepsis secondary to UTI. The patient subsequently went into hypoxic respiratory failure requiring BiPAP for respiratory support with a component of fluid overload and possible pneumonia. In addition, the patient had acute kidney injury, atrial fibrillation with rapid ventricular response. He is known to have also peripheral vascular disease. The patient was placed on BiPAP for respiratory support and he was kept in the intensive care unit. In terms of his E. coli sepsis, urine culture and the blood culture was positive and the patient is still receiving IV antibiotics and the patient is currently on IV Zosyn. He is afebrile and he is hemodynamically stable on no pressors and the patient is not requiring any pressors. In fact, the patient is on amiodarone drip at 0.5 mg per minute and addition to Cardizem at 10 mg an hour for rate control regarding his atrial fibrillation. His echocardiogram was completed on 07/05/2019 and the patient was found to have a impaired LV function with an ejection fraction of 30-35% and mildly enlarged RV with a right-sided pulmonary artery pressure is estimated to be around 46 mmHg. His renal function was also abnormal. The patient developed an acute kidney injury, admission with a crea tinine of 4.6 which gradually improved during the course of his treatment with a decline in the creatinine levels. The patient also had a anion gap metabolic acidosis with gradually recovered. Nephrology is on the case. Ultrasound the kidneys did not show any significant hydronephrosis on this patient. The chest x-ray showed left basilar consolidation right perihilar opacity consistent with multifocal atelectasis/pneumonia. He is receiving PPN for nutritional support. He does have also comorbidities including hypertension, hyperlipidemia, COPD and addition to chronic alcohol use. On today's evaluation of 07/10/2019, the patient is lethargic and weak yet awake and following commands and answering questions appropriately. He is on 3 L of oxygen by nasal cannula. He is not utilizing his BiPAP for now. He remains in atrial fibrillation. He remains on amiodarone maintenance of 0.5 mg per minute. He is on IV Zosyn. His thrombocytopenia is improving. He is receiving PPN for nutritional support. He does have severe peripheral vascular disease along with chronic arterial necrot ic ulcers in his toes bilaterally in addition to some necrotic wounds in the ankles bilaterally worse on the right. He remains afebrile. On today's evaluation of 07/11/2019 the patient is essentially same yesterday. He is lethargic. He is weak. He follows some simple commands. He seems to be appropriate however profoundly weak. He passed a swallow evaluation. Nevertheless, he is oral intake is considered to be low and the patient will be kept on PPN for nutritional support. The patient's IV medication will be switched over to oral as the patient is on amiodarone and Cardizem drip for his atrial fibrillation. Is currently on 2 L of oxygen by nasal cannula. Urine culture came back positive for E. coli. For now, the patient is on oral amiodarone regarding his atrial fibrillation 400 mg by mouth twice a day. The patient is on Toprol 25 mg twice a day. He is receiving Levemir insulin 20 units daily at bedtime. Discontinuation of the IV Solu Medrol helped his blood sugar control. Nevertheless, the patient on PPN which is obviously contributing to his blood sugar elevation. No other significant events overnight. His resting comfortably in bed. On 07/12/2019, the patient is essentially the same condition. Oral intake is minimal and he is not eating much approximately 10-20% of his tray is being utilized on a daily basis. For that reason the patient is being supplemented with TPN for nutritional support. He remains on IV Zosyn. His urine culture came back positive for E. coli. Blood culture came back positive for E. coli. He is on 40s of oxygen by nasal cannula with a pulse ox of 91%. He is awake and alert and is following commands and answering questions. Nevertheless, he remains wide lethargic and weak and he is very much laying in bed without much o f an activity. He has extensive bruising over extremities in addition to severe peripheral vascular disease with chronic ulcerations and his toes bilaterally and these are arterial ulcers are quite necrotic. Vascular surgeries on the case and no surgical interventions to be done. Renal function continues to improve in the creatinine is down to 1.7. Hemoglobin is at 9 without any significant leukocytosis. The blood sugar is under adequate control as the patient is on Lantus insulin in addition to sliding scale coverage. On 07/13/2019, the patient is still doing poorly. Laying in bed. No significant respiratory distress. Nevertheless, he seems to be quite lethargic and he drifts to sleep if left unstimulated. I was told that he worked with physical therapy. His oral intake is still low and the patient is still receiving TPN for nutritional support. The patient is completing the course of his IV Zosyn regarding E. coli sepsis and the hemodynamic parameters is improved, his blood pressure is normalized, his renal function continues to improve and his platelet count is also normalized. On today's evaluation, the skin in the lower extremity and the feet of significantly more mottled and the patient has no Doppler pulses that I was able to identify in his legs. Based on that, I recommended an immediate vascular surgery reevaluation regarding this issue. I discussed this case with Dr. Ladd. We decided to put the patient IV heparin now that his platelet count has improved. No plans for any surgical intervention. He has extensive vascular disease with chronic arterial ulcers in lower extremities bilaterally. These ulcers are dry and necrotic and nondraining. No fever. No chills. He has had no bowel movement and the patient will be given l laxative in that regard. I was able to talk to the daughter yesterday. I discussed with her his poor prognosis based on the above- mentioned comorbidities. Obviously the vascular insufficiency is a significant issue for now. He is on Levemir insulin and the dose was adjusted up to 20 units along with his vascular coverage. On 07/14/2019, no major changes in his condition and the patient is essentially the same, but he is laying down comfortably in bed, lethargic, at times confused, and sleepy. No pulses in lower extremities bilaterally and I was unable to also feel the popliteal pulses. The feet are extremely cold and ischemic with arterial necrotic wounds bilaterally. He is currently on IV heparin. Denies having any pain issues. No issues with bleeding complications. Skin is mottled and there are some areas of subcutaneous bruising in upper extremities bilaterally. He is still receiving TPN for nutritional support. Cardiac rhythm is sinus on oral amiodarone 400 mg by mouth twice a day. The patient has no hemodynamic instability. Pro-calcitonin level has dropped as the patient was treated for E. coli septicemia. Contacted the daughter. Unfortunately this is not a good situation specially the patient is quite debilitated and his oral intake is quite minimal and the patient is unable to show any signs of any clinical recovery. Furthermore, there is further ischemic changes in lower extremities bilaterally and vascular surgeon is contemplating subsequent amputation of later stage as the patient is not a candidate for any vascular interventions other than amputation for now. No clear lines of the medication lower extremities. Hemoglobin is at 7.8. Objective - Vital Signs Vital signs: Vital Signs Temp 97.3 F L 07/14/19 04:00 Pulse 82 07/14/19 11:18 Resp 17 07/14/19 08:00 BP 138/98 07/14/19 08:00 Pulse Ox 95 07/14/19 08:00 Intake & Output 07/13/19 07/14/19 07/14/19 18:59 06:59 18:59 Intake Total 1630 2645.919 637.331 Output Total 1350 1260 600 Balance 280 1385.919 37.331 Weight 85.3 kg 85.3 kg Intake: IV 1505 1480 575 0.9 NS 120 120 50 Amino Acid 4.25%-D10w+ 840 Lytes*E* 1,000 ml @ 105 mls/hr IV .BY DURATION [facility] Rx#:[id number] Mvi, Adult No.4 with Vit 315 525 K 10 ml Trace (Conc-1Ml/ Dose) 1 ml In Amino Acid 4.25%-D10w+Lytes*E* 1,000 ml @ 105 mls/hr IV .BY DURATION [facility] Rx#: [id number] Mvi, Adult No.4 with Vit 1260 105 K 10 ml Trace (Conc-1Ml/ Dose) 1 ml Sodium Acetate 30 meq Potassium Chloride 40 meq Calcium Gluconate 1 gm Magnesium Sulfate gm 1 gm In Amino Acid 4.25%-D10w 1,000 ml @ 105 mls/hr IV .BY DURATION [facility] Rx#: [id number] Piperacillin-Tazobactam 3 100 .375 gm In Sodium Chloride 0.9% 100 ml @ 25 mls/hr IVPB Q12HR [facility] Rx #:[id number] Sodium Phosphate 10 mmol 125 In Sodium Chloride 0.9% 250 ml @ 125 mls/hr IVPB ONCE ONE Rx#:[id number] Intake, IV Titration 1165.919 62.331 Amount Amino Acid 4.25%-D10w+ 978.25 Lytes*E* 1,000 ml @ 105 mls/hr IV .BY DURATION [facility] Rx#:[id number] Heparin Sod,Pork in 0.45% 187.669 62.331 NaCl 25,000 unit In 0.45 % NaCl 1 250ml.bag @ 11.6 UNITS/KG/HR 9.999 mls/hr IV .Q24H [facility] Rx#: [id number] Oral 125 Output: Urine 1350 1260 600 Other: Voiding Method Indwelling Catheter Indwelling Catheter - Exam Gen. appearance the patient is calm and comfortable likely distress, he looks and appears to be quite sick and debilitated. Head exam was generally normal. There was no scleral icterus or corneal arcus. Mucous membranes were moist. Neck was supple and without jugular venous distension, thyromegaly, or carotid bruits. Carotids were easily palpable bilaterally. There was no adenopathy. heart sounds are irregular consistent with atrial fibrillat.Cardiac exam revealed the PMI to be normally situated and sized. The rhythm was regular and no extrasystoles were noted during several minutes of auscultation. The first and second heart sounds were normal and physiologic splitting of the second heart sound was noted. There were no murmurs, rubs, clicks, or gallops. Lungs sounds are diminished in lung bases along with coarse rhonchi and some bibasilar crackles are present. Abdominal exam revealed normal bowel sounds. The abdomen was soft, non-tender, and without masses, organomegaly, or appreciable enlargement of the abdominal aorta. Extremities the patient is known to have peripheral vascular disease and has significant ulceration in nonhealing wounds of the feet and the toes. There is significant acrocyanosis. There is also some mottling of the lower extremities. Skin reveals arterial necrotic ulcers in his toes bilaterally where several toes are necrotic and the patient has necrotic ankle wounds worse on the right lateral aspect of the ankle as well as chronic ecchymotic areas throughout his body. Pulses are absent in the feet bilaterally and the skin is mottled and the feet are extremely cold along with extensive arterial necrotic wounds in his feet and the toes bilaterally. No lines of demarcation, however I was unable to feel any pulses given the popliteal arteries bilaterally in the legs are cold and ischemic, probably worse compared to yesterday. Neurologically the patient is having global weakness and there is no focal neurological deficit at this point in time. He is still somnolent and lethargic and sleepy. - Labs CBC & Chem 7: 07/14/19 03:16 07/14/19 03:16 Labs: Abnormal Lab Results - Last 24 Hours (Table) 07/13/19 07/13/19 07/13/19 Range/Units 11:33 11:40 18:35 WBC (3.8-10.6) k/uL RBC 2.05 L (4.30-5.90) m/uL Hgb 8.0 L (13.0-17.5) gm/dL Hct 25.7 L (39.0-53.0) % MCV 125.2 H (80.0-100.0) fL MCH 39.2 H (25.0-35.0) pg MCHC (31.0-37.0) g/dL RDW 18.8 H (11.5-15.5) % Plt Count 89 L (150-450) k/uL Neutrophils # (Manual) (1.3-7.7) k/uL Lymphocytes # 0.4 L (1.0-4.8) k/uL Lymphocytes # (Manual) (1.0-4.8) k/uL Myelocytes # (Manual) (0) k/uL Macrocytosis Marked A APTT (22.0-30.0) sec Sodium (137-145) mmol/L Carbon Dioxide (22-30) mmol/L BUN (9-20) mg/dL Creatinine (0.66-1.25) mg/dL Glucose (74-99) mg/dL POC Glucose (mg/dL) 214 H 112 H (75-99) mg/dL Calcium (8.4-10.2) mg/dL 07/13/19 07/13/19 07/14/19 Range/Units 19:29 19:30 03:16 WBC 12.1 H (3.8-10.6) k/uL RBC 1.96 L (4.30-5.90) m/uL Hgb 7.8 L (13.0-17.5) gm/dL Hct 25.6 L (39.0-53.0) % MCV 130.9 H D (80.0-100.0) fL MCH 40.1 H (25.0-35.0) pg MCHC 30.6 L (31.0-37.0) g/dL RDW 19.2 H (11.5-15.5) % Plt Count 113 L (150-450) k/uL Neutrophils # (Manual) 10.80 H (1.3-7.7) k/uL Lymphocytes # (1.0-4.8) k/uL Lymphocytes # (Manual) 0.36 L (1.0-4.8) k/uL Myelocytes # (Manual) 0.12 H (0) k/uL Macrocytosis Marked A APTT 30.6 H (22.0-30.0) sec Sodium (137-145) mmol/L Carbon Dioxide (22-30) mmol/L BUN (9-20) mg/dL Creatinine (0.66-1.25) mg/dL Glucose (74-99) mg/dL POC Glucose (mg/dL) 171 H (75-99) mg/dL Calcium (8.4-10.2) mg/dL 07/14/19 07/14/19 07/14/19 Range/Units 03:16 03:16 06:47 WBC (3.8-10.6) k/uL RBC (4.30-5.90) m/uL Hgb (13.0-17.5) gm/dL Hct (39.0-53.0) % MCV (80.0-100.0) fL MCH (25.0-35.0) pg MCHC (31.0-37.0) g/dL RDW (11.5-15.5) % Plt Count (150-450) k/uL Neutrophils # (Manual) (1.3-7.7) k/uL Lymphocytes # (1.0-4.8) k/uL Lymphocytes # (Manual) (1.0-4.8) k/uL Myelocytes # (Manual) (0) k/uL Macrocytosis APTT 39.0 H (22.0-30.0) sec Sodium 134 L (137-145) mmol/L Carbon Dioxide 19 L (22-30) mmol/L BUN 65 H (9-20) mg/dL Creatinine 1.38 H (0.66-1.25) mg/dL Glucose 155 H (74-99) mg/dL POC Glucose (mg/dL) 177 H (75-99) mg/dL Calcium 7.4 L (8.4-10.2) mg/dL 07/14/19 Range/Units 10:30 WBC (3.8-10.6) k/uL RBC (4.30-5.90) m/uL Hgb (13.0-17.5) gm/dL Hct (39.0-53.0) % MCV (80.0-100.0) fL MCH (25.0-35.0) pg MCHC (31.0-37.0) g/dL RDW (11.5-15.5) % Plt Count (150-450) k/uL Neutrophils # (Manual) (1.3-7.7) k/uL Lymphocytes # (1.0-4.8) k/uL Lymphocytes # (Manual) (1.0-4.8) k/uL Myelocytes # (Manual) (0) k/uL Macrocytosis APTT 37.3 H (22.0-30.0) sec Sodium (137-145) mmol/L Carbon Dioxide (22-30) mmol/L BUN (9-20) mg/dL Creatinine (0.66-1.25) mg/dL Glucose (74-99) mg/dL POC Glucose (mg/dL) (75-99) mg/dL Calcium (8.4-10.2) mg/dL Microbiology - Last 24 Hours (Table) 07/07/19 09:19 Blood Culture - Final Blood No Growth after 144 hours Assessment and Plan Plan: 1 sepsis with E. coli bacteremia secondary to an underlying UTI currently on IV Zosyn. The patient is hemodynamically stable on no pressors for now. The pro- calcitonin level has dropped and the patient was treated with IV antibiotics and he is hemodynamically stable at this point in time. No fever. 2 acute hypoxic respiratory failure requiring BiPAP for respiratory supportsecondary to sepsis and possibly component of fluid overload/pneumonia in addition to an underlying COPD, currently improved. Nevertheless, the chest x- ray from today shows a new patchy right basilar opacity probably representing some atelectasis. There is improvement in the aeration of the left lung base. 3 altered mentation secondary to above, improved, profoundly weak, overall mental status improved considerably. Nevertheless, the patient is still lethargic and slow in answering questions and he is probably depressed. 4 acute kidney injury possibly with an underlying chronic kidney disease, improv ing and the patient's creatinine is down to 1. 38 5 COPD 6 chronic atrial fibrillation with rapid ventricular response currently on a combination of IV amiodarone and IV Cardizem and these medications has been switched to oral as the patient is able to take oral medication. He'll be given oral amiodarone and Cardizem as stated earlier. He remains atrial fibrillation. Rate is under better control for now. 7 severe peripheral vascular disease, severe with chronic arterial ulcers in the lower extremities bilaterally with necrotic digits and necrotic once in the ankles with diminished pulses lower extremities bilaterally. No pulses in lower extremities. No popliteal or dorsalis pedis or posterior tibialis signals. The feet are ischemic and cold with necrotic digits and necrotic ulcers bilaterally. These are. Necrotic ulcers. 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 9 hyperlipidemia 10 hypertension 11 chronic history of alcoholism 12 anion gap metabolic acidosis, recovered 13 chronic anemia 14 chronic thrombocytopenia with acute drop in the platelet count, likely is consumptive secondary to sepsis, and the plated count is improving for now 15 PPN for nutritional support 16 diabetes mellitus currently on Levemir in addition to sliding scale coverage. Plan Continued IV heparin Continued IV Zosyn Levemir insulin for blood sugar control in addition to sliding scale coverage Monitor renal function which is improving Monitor plated count which is improving, they're improved and we will to start IV heparin Continue rest of the supportive care. I contacted the daughter and I asked her to come in and have further discussion with him regarding goals of care. I think the patient will not recover or restore the condition that he was and she months ago. This current septic shock has left him with ischemic limbs especially lower extremities and the patient would likely need amputation at a later stage if he is able to survive this event. I am not sure if this is something that he would like to have. This will greatly affect his quality of life. Alternatively, hospice/comfort care measures is very reasonable for this patient with extensive comorbidities as stated above.
--- NOTE | 2019-07-14 13:05 | P.PN ---
Subjective Progress Note Date: 07/14/19 Patient seen and examined at bedside His respiratory rate is running in the 20s and 30s. Patient's condition is guarded. Patient is awake and alert but confused. pPatient is currently on nasal cannula saturation is at 95%. patient's peripheral arterial disease has progressedand will likely require amputation. Patient's daughters to come in today to discuss CODE STATUS. patient continues to be treated for E. coli bacteremia with IV antibiotics. Objective - Vital Signs Vital signs: Vital Signs Temp 97.3 F L 07/14/19 04:00 Pulse 82 07/14/19 11:18 Resp 28 H 07/14/19 11:00 BP 150/82 07/14/19 11:00 Pulse Ox 95 07/14/19 11:00 Intake & Output 07/13/19 07/14/19 07/14/19 18:59 06:59 18:59 Intake Total 1630 2645.919 637.331 Output Total 1350 1260 600 Balance 280 1385.919 37.331 Weight 85.3 kg 85.3 kg Intake: IV 1505 1480 575 0.9 NS 120 120 50 Amino Acid 4.25%-D10w+ 840 Lytes*E* 1,000 ml @ 105 mls/hr IV .BY DURATION [facility] Rx#:[id number] Mvi, Adult No.4 with Vit 315 525 K 10 ml Trace (Conc-1Ml/ Dose) 1 ml In Amino Acid 4.25%-D10w+Lytes*E* 1,000 ml @ 105 mls/hr IV .BY DURATION [facility] Rx#: [id number] Mvi, Adult No.4 with Vit 1260 105 K 10 ml Trace (Conc-1Ml/ Dose) 1 ml Sodium Acetate 30 meq Potassium Chloride 40 meq Calcium Gluconate 1 gm Magnesium Sulfate gm 1 gm In Amino Acid 4.25%-D10w 1,000 ml @ 105 mls/hr IV .BY DURATION [facility] Rx#: [id number] Piperacillin-Tazobactam 3 100 .375 gm In Sodium Chloride 0.9% 100 ml @ 25 mls/hr IVPB Q12HR [facility] Rx #:[id number] Sodium Phosphate 10 mmol 125 In Sodium Chloride 0.9% 250 ml @ 125 mls/hr IVPB ONCE ONE Rx#:[id number] Intake, IV Titration 1165.919 62.331 Amount Amino Acid 4.25%-D10w+ 978.25 Lytes*E* 1,000 ml @ 105 mls/hr IV .BY DURATION [facility] Rx#:[id number] Heparin Sod,Pork in 0.45% 187.669 62.331 NaCl 25,000 unit In 0.45 % NaCl 1 250ml.bag @ 11.6 UNITS/KG/HR 9.999 mls/hr IV .Q24H [facility] Rx#: [id number] Oral 125 Output: Urine 1350 1260 600 Other: Voiding Method Indwelling Catheter Indwelling Catheter - Exam General: [toxic appearing], [no distress], [appears at stated age] Derm: [warm], [dry] Head: [atraumatic], [normocephalic], [symmetric] Eyes: [EOMI], [no lid lag], [anicteric sclera] Mouth: [no lip lesion], [mucus membranes moist] Cardiovascular: [S1S2 reg], [no murmur], [positive posterior tibial pulse bilateral], Lungs: [diminished bilateral], [no rhonchi, no rales] , [no accessory muscle use] tachypneic Abdominal: [soft], [ nontender to palpation], [no guarding], [no appreciable organomegaly] Ext: [mottled and ischemic lower extremities with no peripheral pulses palpated in pedal pulses Neuro: [ CN II-XI grossly intact], [no focal neuro deficits] Psych: Alert but confused - Labs CBC & Chem 7: 07/14/19 03:16 07/14/19 03:16 Labs: Abnormal Lab Results - Last 24 Hours (Table) 07/13/19 07/13/19 07/13/19 Range/Units 11:40 18:35 19:29 WBC (3.8-10.6) k/uL RBC 2.05 L (4.30-5.90) m/uL Hgb 8.0 L (13.0-17.5) gm/dL Hct 25.7 L (39.0-53.0) % MCV 125.2 H (80.0-100.0) fL MCH 39.2 H (25.0-35.0) pg MCHC (31.0-37.0) g/dL RDW 18.8 H (11.5-15.5) % Plt Count 89 L (150-450) k/uL Neutrophils # (Manual) (1.3-7.7) k/uL Lymphocytes # 0.4 L (1.0-4.8) k/uL Lymphocytes # (Manual) (1.0-4.8) k/uL Myelocytes # (Manual) (0) k/uL Macrocytosis Marked A APTT (22.0-30.0) sec Sodium (137-145) mmol/L Carbon Dioxide (22-30) mmol/L BUN (9-20) mg/dL Creatinine (0.66-1.25) mg/dL Glucose (74-99) mg/dL POC Glucose (mg/dL) 112 H 171 H (75-99) mg/dL Calcium (8.4-10.2) mg/dL 07/13/19 07/14/19 07/14/19 Range/Units 19:30 03:16 03:16 WBC 12.1 H (3.8-10.6) k/uL RBC 1.96 L (4.30-5.90) m/uL Hgb 7.8 L (13.0-17.5) gm/dL Hct 25.6 L (39.0-53.0) % MCV 130.9 H D (80.0-100.0) fL MCH 40.1 H (25.0-35.0) pg MCHC 30.6 L (31.0-37.0) g/dL RDW 19.2 H (11.5-15.5) % Plt Count 113 L (150-450) k/uL Neutrophils # (Manual) 10.80 H (1.3-7.7) k/uL Lymphocytes # (1.0-4.8) k/uL Lymphocytes # (Manual) 0.36 L (1.0-4.8) k/uL Myelocytes # (Manual) 0.12 H (0) k/uL Macrocytosis Marked A APTT 30.6 H (22.0-30.0) sec Sodium 134 L (137-145) mmol/L Carbon Dioxide 19 L (22-30) mmol/L BUN 65 H (9-20) mg/dL Creatinine 1.38 H (0.66-1.25) mg/dL Glucose 155 H (74-99) mg/dL POC Glucose (mg/dL) (75-99) mg/dL Calcium 7.4 L (8.4-10.2) mg/dL 07/14/19 07/14/19 07/14/19 Range/Units 03:16 06:47 10:30 WBC (3.8-10.6) k/uL RBC (4.30-5.90) m/uL Hgb (13.0-17.5) gm/dL Hct (39.0-53.0) % MCV (80.0-100.0) fL MCH (25.0-35.0) pg MCHC (31.0-37.0) g/dL RDW (11.5-15.5) % Plt Count (150-450) k/uL Neutrophils # (Manual) (1.3-7.7) k/uL Lymphocytes # (1.0-4.8) k/uL Lymphocytes # (Manual) (1.0-4.8) k/uL Myelocytes # (Manual) (0) k/uL Macrocytosis APTT 39.0 H 37.3 H (22.0-30.0) sec Sodium (137-145) mmol/L Carbon Dioxide (22-30) mmol/L BUN (9-20) mg/dL Creatinine (0.66-1.25) mg/dL Glucose (74-99) mg/dL POC Glucose (mg/dL) 177 H (75-99) mg/dL Calcium (8.4-10.2) mg/dL Microbiology - Last 24 Hours (Table) 07/07/19 09:19 Blood Culture - Final Blood No Growth after 144 hours Assessment and Plan Assessment: Acute hypoxic respiratory failure secondary to COPD, CHF and possible pneumonia -IV antibiotics and breathing treatments Sepsis with E. coli UTI and bacteremia -continue zosyn and ID recs appreciated Severe PAD with Debility - vascular recs outpatient amputation Bicytopenia multifactorial -will continue to trend hb and platelets -Acute renal failure with Left-sided hydronephrosis stable -Acute metabolic encephalopathy secondary to above -PAF amioderone and metoprolol per cardiology Steroid-induced hyperglycemia History of alcohol abuse GI and DVT prophylaxis Prognosis is guarded. CODE status will be revisited with patient's daughter today.
--- NOTE | 2019-07-14 13:56 | P.PN ---
Progress Note - Text Progress Note Date: 07/14/19 Dr. Ladd was called by patient's nurse to evaluate patient's right elbow wound. Pt was seen in ICU. Patient states he thinks he had fallen prior to hospital admission and thinks that he must have hit his right elbow. The right elbow was wrapped with Kerlix dressing. Wound with yellow slough tissue, with a central area of tunneling with yellow exudate and surrounding erythema.. Cultures obtained and sent. Discussed with nurse to inform infectious disease/wound care to further evaluate. Dr. Oconnor also came into evaluate patient and I discussed wound with her as well. Keep pressure off right elbow, continue to apply dressing to site. The above dictated assessment and findings were discussed with Dr. Ladd. The impression and plan of care have been directed as dictated.
[2019-07-14] MEDS: THIAMINE 100 MG/ML 2 ML VIAL IVP SCH (14:02)
[2019-07-14] MEDS: 1: MVI, ADULT NO.4 WITH VIT K 10 ML, TRACE (CONC-1ML/DOSE) 1 ML, SODIUM CHLORIDE 2.5MEQ/ IV SCH ×4 (14:11)
--- NOTE | 2019-07-14 15:38 | PN ---
PROGRESS NOTE Patient is seen for followup for acute kidney injury, ATN, currently nonoliguric and continuing to improve. The patient's serum creatinine is down to 1.38 today. He is maintained on PPN. His oral intake is poor. The patient has significant peripheral vascular disease with discoloration of bilateral feet and upper extremities. He was admitted to the hospital with sepsis from E coli bacteremia and E coli urinary tract infection. PHYSICAL EXAMINATION: On examination today, blood pressure was 143/79, heart rate 89 per minute. Patient is afebrile. EXAMINATION OF THE HEART: S1 and S2. EXAMINATION OF LUNGS: Decreased breath sounds at bases. ABDOMEN: Soft, non-tender. Examination of lower extremities shows significant discoloration. Peripheries are cool. Necrotic areas noted, both feet. There is significant discoloration of left hand as well. BRAILLE TEACHER exam shows patient has been moving all 4 extremities. LABS: Labs show sodium of 134, potassium 5.0, chloride 107, BUN 65, creatinine 1.38, hemoglobin 7.8 g/dL. ASSESSMENT: 1. Acute kidney injury, acute tubular necrosis, from sepsis, currently improving. 2. Hypokalemia, status post replacement. 3. Sepsis from urinary tract infection. 4. Escherichia coli bacteremia from urinary tract infection, maintained on antibiotics. 5. Atrial fibrillation with rapid ventricular response, now with controlled ventricular response. 6. Cardiomyopathy, ejection fraction 30% to 35%. 7. Mild left hydronephrosis with no plans for intervention at this point. 8. Severe peripheral vascular disease with discoloration of upper and lower extremities, being followed by Vascular. 9. Chronic history of ethanol abuse. 10.Acute hypoxic respiratory failure from sepsis, status post BiPAP. PLAN: Encourage increased oral intake. Overall prognosis is guarded. MMODL / IJN: [id number] /
--- NOTE | 2019-07-14 15:44 | PN ---
PROGRESS NOTE DATE OF SERVICE: 07/13/2019 Previous note had a lot of missing information. Patient is seen for followup for acute kidney injury from ATN, currently improving. He was admitted to the hospital with sepsis from urinary tract infection. PHYSICAL EXAMINATION: On examination, patient is comfortable, awake. He is not in any acute distress. Blood pressure was 143/87. He is afebrile. Heart rate about 90 per minute. EXAMINATION OF THE HEART: S1 and S2. EXAMINATION OF LUNGS: Decreased breath sounds at bases. ABDOMEN: Soft, non-tender. Examination of lower extremities shows no edema, but significant discoloration noted in both feet as well as left hand. MARKETING SERVICES MANAGER exam shows patient has been moving all 4 extremities. LABS: Labs show sodium 135, potassium 4.3, BUN 68, creatinine 1.45, chloride 103, calcium 7.4, phosphorus 2.1. ASSESSMENT: 1. Acute kidney injury, acute tubular necrosis, nonoliguric from sepsis, currently improving. 2. History of cardiomyopathy, ejection fraction 30% to 35%. 3. Escherichia coli bacteremia and sepsis from urinary tract infection. 4. Severe peripheral vascular disease with necrotic ulcers and necrotic areas noted, bilateral lower extremities, as well as significant discoloration in the left hand. PLAN: Continue to encourage increased oral intake. Monitor electrolytes. Can use loop diuretics if needed. Chest x-ray from this morning does not show any significant changes. MMODL / IJN: [id number] /
--- NOTE | 2019-07-14 16:26 | PN ---
PROGRESS NOTE DATE OF SERVICE: 07/14/2019 REASON FOR FOLLOWUP: E coli UTI and bacteremia and aspiration pneumonia. INTERVAL HISTORY: The patient is currently afebrile, has been breathing comfortably. Denies having any chest pain. Occasional cough. No abdominal pain, no diarrhea. PHYSICAL EXAMINATION: Blood pressure 138/70 with a pulse of 79, temperature 97.3. He is 93% on 2 L nasal cannula. General description is an elderly male, lying in bed in no distress. RESPIRATORY SYSTEM: Unlabored breathing, clear to auscultation anteriorly. HEART: S1, S2. Regular rate and rhythm. ABDOMEN: Soft, no tenderness. Still has significant skin changes to the right foot bilaterally and wound on the right elbow area, but no cellulitis. LABS: Hemoglobin 7.8, white count of 12.9, BUN of 65, creatinine 1.38. DIAGNOSTIC IMPRESSION AND PLAN: 1. Patient with E coli bacteremia secondary to urinary source. Followup blood cultures have been negative. Also with a component of aspiration pneumonia. Patient covered with Zosyn, possibly receiving about 2 weeks antibiotic. At this point, monitor clinical course closely. 2. Right elbow wound. Local care with Medihoney followed by moist dressing. Daughter was at the bedside. Questions were answered. MMODL / IJN: [id number] /
[2019-07-14] MEDS ORDERED: HALOPERIDOL LACTATE 5 MG/ML 1 ML VIAL IVP PRN (16:40)
[2019-07-14 17:20] LABS: Glucose,Whole Blood 259 mg/dL (75-99)
--- NOTE | 2019-07-14 18:36 | XR ---
EXAMINATION TYPE: XR chest 1V DATE OF EXAM: 07/14/2019 COMPARISON: 07/14/2019 INDICATION: Post intubation TECHNIQUE: Single frontal view of the chest is obtained. FINDINGS: The heart size is normal. The pulmonary vasculature is normal. The lungs are clear. There is an endotracheal tube placed with the tip above the lev. Nasogastric tube transverses the thorax with the tip in the proximal portion of the left upper quadrant. Nasogastric tube could be adv anced. PICC line remains on the right with the tip in the distal superior vena cava region. IMPRESSION: 1. Interval placement of endotracheal tube with tip above the lev. 2. Interval placement of a nasogastric tube with tip in the proximal left upper quadrant of the abdom en. This could be advanced approximately 5 cm. 3. Acute focal infiltrate is not identified.
[2019-07-14] MEDS: NOREPINEPHRINE 8 MG in SODIUM CHLORIDE 0.9% 250 ML IV SCH (19:09)
[2019-07-14 19:47] LABS: ABG Base Excess -1.5 mmol/L; ABG HCO3 24 mmol/L (21-25); ABG Oxygen Saturation 99.6 % (94-97); ABG PCO2 42 mmHg (35-45); ABG PH 7.36 (7.35-7.45); ABG PO2 306 mmHg (83-108); ABG TCO2 25 mmol/L (19-24); Allen Test Performed? Yes
--- NOTE | 2019-07-14 20:13 | XR ---
EXAMINATION TYPE: XR chest 1V confirm line [facility] DATE OF EXAM: 07/14/2019 COMPARISON: 07/14/2019 INDICATION: Advance OG tube TECHNIQUE: Single frontal view of the chest is obtained. FINDINGS: The heart size is normal. The pulmonary vasculature is normal. Left basilar atelectasis appears to be developing over the interval. The endotracheal tube tip remains above the lev. Right PICC line tip is unchanged in position The nasogastric tube is been advanced and is well seated within the left upper quadrant of the abdome n. IMPRESSION: 1. Interval development of a left basilar atelectasis. 2. Adjustment of the nasogastric tube with tip in the left upper quadrant of the abdomen.
[2019-07-14 20:32] LABS: Glucose,Whole Blood 321 mg/dL (75-99)
[2019-07-14 20:37] LABS: Anisocytosis Slight; HCT 27.5 % (39.0-53.0); HGB 8.5 gm/dL (13.0-17.5); Hypochromasia Marked; MCH 41.3 pg (25.0-35.0); MCHC 30.7 g/dL (31.0-37.0); MCV 134.2 fL (80.0-100.0); Macrocytosis Marked; Mean Platelet Volume 12.4; Platelet Count 128 k/uL (150-450); RBC 2.05 m/uL (4.30-5.90); RDW 19.1 % (11.5-15.5); WBC 13.7 k/uL (3.8-10.6)
[2019-07-14] MEDS: CHLORHEXIDINE GLUCONATE 15 ML CUP MUCOUS MEM SCH (20:54)
[2019-07-14] MEDS: INSULIN DETEMIR (LEVEMIR) 100 UNIT/ML SYR SQ SCH (20:57)
[2019-07-14] MEDS: PROPOFOL 1,000 MG in EMPTY BAG 1 BAG IV SCH (22:50)
[2019-07-15] MEDS: MORPHINE SULFATE 4 MG/ML SYRINGE IV PRN (00:06)
[2019-07-15] MEDS: THIAMINE 100 MG/ML 2 ML VIAL IVP SCH ×3 (00:09→23:20)
[2019-07-15 00:16] LABS: Glucose,Whole Blood 316 mg/dL (75-99)
[2019-07-15] MEDS: 1: MVI, ADULT NO.4 WITH VIT K 10 ML, TRACE (CONC-1ML/DOSE) 1 ML, SODIUM CHLORIDE 2.5MEQ/ IV SCH ×8 (00:43→14:06)
[2019-07-15] MEDS: INSULIN ASPART (NovoLOG) 100 UNIT/ML VIAL SQ SCH ×4 (01:03→18:49)
[2019-07-15] MEDS: PROPOFOL 1,000 MG in EMPTY BAG 1 BAG IV SCH ×4 (04:04→23:13)
[2019-07-15] MEDS: HEPARIN SOD,PORK IN 0.45% NACL 25,000 UNIT in 0.45% NACL 1 250ML.BAG IV SCH (04:06)
[2019-07-15 04:15] LABS: Glucose,Whole Blood 238 mg/dL (75-99)
[2019-07-15 04:26] LABS: Anisocytosis Slight; Basophils % (A) 0 %; Eosinophils % (A) 0 %; HCT 21.6 % (39.0-53.0); Hypochromasia Marked; Lymphocytes # (A) 0.6 k/uL (1.0-4.8); Lymphocytes % (A) 7 %; MCHC 30.5 g/dL (31.0-37.0); Mean Platelet Volume 12.3; Monocytes # (A) 0.5 k/uL (0-1.0); Monocytes % (A) 5 %; Neutrophils % (A) 87 %; Platelet Count 131 k/uL (150-450); RBC 1.69 m/uL (4.30-5.90); RDW 19.1 % (11.5-15.5); WBC 9.2 k/uL (3.8-10.6)
[2019-07-15 04:52] LABS: HGB 6.6 gm/dL (13.0-17.5)
[2019-07-15 04:53] LABS: Macrocytosis Marked
[2019-07-15 04:55] LABS: MCV 127.9 fL (80.0-100.0)
[2019-07-15 05:08] LABS: Potassium 4.5 mmol/L (3.5-5.1)
[2019-07-15 05:10] LABS: Calcium 7.2 mg/dL (8.4-10.2); Magnesium 1.9 mg/dL (1.6-2.3); Phosphorus 3.5 mg/dL (2.5-4.5)
[2019-07-15 05:17] LABS: ABG Base Excess -0.1 mmol/L; ABG HCO3 24 mmol/L (21-25); ABG PCO2 34 mmHg (35-45); ABG PH 7.45 (7.35-7.45); ABG PO2 77 mmHg (83-108); ABG TCO2 25 mmol/L (19-24); Allen Test Performed? Yes
--- NOTE | 2019-07-15 06:05 | XR ---
EXAMINATION TYPE: XR chest 1V portable DATE OF EXAM: 07/15/2019 HISTORY: Tube placement. REFERENCE: Previous study dated 07/14/2019. FINDINGS: The patient's ET tube and NG tube remain in place, unchanged in appearance. Heart size is within normal limits. There is bibasilar airspace disease. There are small, bilateral e ffusions. Overall aeration at the left lung base has improved. IMPRESSION: IMPROVED AERATION, LEFT LUNG BASE.
[2019-07-15] MEDS: FORMOTEROL FUMARATE 20 MCG/2 ML NEBU INHALATION SCH ×2 (07:40→19:54)
[2019-07-15] MEDS: IPRATROPIUM-ALBUTEROL 3 ML NEB INHALATION SCH ×4 (07:40→19:54)
--- NOTE | 2019-07-15 09:42 | XR ---
EXAMINATION TYPE: XR chest 1V portable DATE OF EXAM: 07/15/2019 HISTORY: Central Line placement. REFERENCE: Previous study dated 07/15/2019. FINDINGS: The patient's ET tube and NG tube remain in place, unchanged in appearance. There is a left internal jugular catheter in place. Its tip is in the SVC. Heart size upper limits of normal. There is left basilar airspace disease. There is also a small amou nt of airspace disease at the right lung base. There is a small left pleural effusion. I do not see e vidence of pneumothorax. IMPRESSION: 1. I DO NOT SEE A POST CATHETER INSERTION COMPLICATION. 2. BIBASILAR AIRSPACE DISEASE. 3. SMALL LEFT EFFUSION.
[2019-07-15] MEDS ORDERED: GLYCERIN ADULT SUPPOSITORY 1 EACH RECTAL STA (09:50)
--- NOTE | 2019-07-15 10:04 | P.PN ---
Subjective Progress Note Date: 07/15/19 Principal diagnosis: ventilator dependent acute hypoxic respiratory failure secondary to sepsis Last night patient's respiratory status declined patient was hypoxic and required intubation. This morning patient's hemoglobin dropped to 6.6. 2 units of packed red blood cells were ordered. Patient is sedated on the vent. I spoke to patient's daughter Monika. Patient is currently a full code until reassessed by vascular surgery. Patient's daughter is very realistic and did discuss with her father possibility of discontinuing care if quality of life was greatly debilitated. Objective - Vital Signs Vital signs: Vital Signs Temp 98.6 F 07/15/19 08:00 Pulse 78 07/15/19 09:30 Resp 22 07/15/19 09:30 BP 91/61 07/15/19 09:30 Pulse Ox 99 07/15/19 09:30 Intake & Output 07/14/19 07/15/19 07/15/19 18:59 06:59 18:59 Intake Total 6815.493 4180.285 461.022 Output Total 1375 1925 450 Balance 314.331 197.285 11.022 Weight 85.3 kg 90.1 kg Intake: IV 1627 1606 345 0.9 NS 120 120 30 Fat Emulsion 20% 250 ml 147 126 In Empty Bag 1 bag @ 21 mls/hr IV DAILY RENE Rx#: [id number] Mvi, Adult No.4 with Vit 1260 1260 315 K 10 ml Trace (Conc-1Ml/ Dose) 1 ml In Amino Acid 4.25%-D10w+Lytes*E* 1,000 ml @ 105 mls/hr IV .BY DURATION RENE Rx#: [id number] Piperacillin-Tazobactam 3 100 100 .375 gm In Sodium Chloride 0.9% 100 ml @ 25 mls/hr IVPB Q8HR RENE Rx# :[id number] Intake, IV Titration 62.331 456.285 116.022 Amount Heparin Sod,Pork in 0.45% 62.331 268.363 NaCl 25,000 unit In 0.45 % NaCl 1 250ml.bag @ 11.6 UNITS/KG/HR 9.999 mls/hr IV .Q24H RENE Rx#: [id number] Norepinephrine 8 mg In 87.922 Sodium Chloride 0.9% 250 ml @ 0.05 MCG/KG/MIN 8. 253 mls/hr IV .Q24H RENE Rx#:[id number] Propofol 1,000 mg In 100 116.022 Empty Bag 1 bag @ Titrate IV .Q0M RENE Rx#: [id number] Blood Product 0 Rc As-1 Unit 0 [id number] Other 60 Output: Gastric Drainage 350 100 Urine 1375 1575 350 Other: Voiding Method Indwelling Catheter Indwelling Catheter - Exam General: [toxic appearing], [no distress], [appears at stated age] Derm: [warm], [dry] Head: [atraumatic], [normocephalic], [symmetric] Eyes: [EOMI], [no lid lag], [anicteric sclera] Mouth: [no lip lesion], [mucus membranes moist] Cardiovascular: [S1S2 reg], [no murmur], [positive posterior tibial pulse bilateral], Lungs: [diminished bilateral], [no rhonchi, no rales] , [no accessory muscle use] tachypneic Abdominal: [soft], [ nontender to palpation], [no guarding], [no appreciable organomegaly] Ext: [mottled and ischemic lower extremities with no peripheral pulses palpated in pedal pulses Neuro: [ CN II-XI grossly intact], [no focal neuro deficits] Psych: On vent support sedated - Labs CBC & Chem 7: 07/15/19 04:13 07/15/19 04:13 Labs: Abnormal Lab Results - Last 24 Hours (Table) 07/14/19 07/14/19 07/14/19 Range/Units 10:30 17:18 19:26 WBC (3.8-10.6) k/uL RBC (4.30-5.90) m/uL Hgb (13.0-17.5) gm/dL Hct (39.0-53.0) % MCV (80.0-100.0) fL MCH (25.0-35.0) pg MCHC (31.0-37.0) g/dL RDW (11.5-15.5) % Plt Count (150-450) k/uL Neutrophils # (1.3-7.7) k/uL Lymphocytes # (1.0-4.8) k/uL Macrocytosis APTT 37.3 H (22.0-30.0) sec ABG pCO2 (35-45) mmHg ABG pO2 306 H (83-108) mmHg ABG Total CO2 25 H (19-24) mmol/L ABG O2 Saturation 99.6 H (94-97) % Sodium (137-145) mmol/L BUN (9-20) mg/dL Creatinine (0.66-1.25) mg/dL Glucose (74-99) mg/dL POC Glucose (mg/dL) 259 H (75-99) mg/dL Calcium (8.4-10.2) mg/dL Crossmatch 07/14/19 07/14/19 07/14/19 Range/Units 20:00 20:15 20:30 WBC 13.7 H (3.8-10.6) k/uL RBC 2.05 L (4.30-5.90) m/uL Hgb 8.5 L (13.0-17.5) gm/dL Hct 27.5 L (39.0-53.0) % MCV 134.2 H (80.0-100.0) fL MCH 41.3 H (25.0-35.0) pg MCHC 30.7 L (31.0-37.0) g/dL RDW 19.1 H (11.5-15.5) % Plt Count 128 L (150-450) k/uL Neutrophils # (1.3-7.7) k/uL Lymphocytes # (1.0-4.8) k/uL Macrocytosis Marked A APTT 51.0 H (22.0-30.0) sec ABG pCO2 (35-45) mmHg ABG pO2 (83-108) mmHg ABG Total CO2 (19-24) mmol/L ABG O2 Saturation (94-97) % Sodium (137-145) mmol/L BUN (9-20) mg/dL Creatinine (0.66-1.25) mg/dL Glucose (74-99) mg/dL POC Glucose (mg/dL) 321 H (75-99) mg/dL Calcium (8.4-10.2) mg/dL Crossmatch 07/15/19 07/15/19 07/15/19 Range/Units 00:15 04:13 04:13 WBC (3.8-10.6) k/uL RBC 1.69 L (4.30-5.90) m/uL Hgb 6.6 L* D (13.0-17.5) gm/dL Hct 21.6 L (39.0-53.0) % MCV 127.9 H D (80.0-100.0) fL MCH 39.0 H (25.0-35.0) pg MCHC 30.5 L (31.0-37.0) g/dL RDW 19.1 H (11.5-15.5) % Plt Count 131 L (150-450) k/uL Neutrophils # 8.0 H (1.3-7.7) k/uL Lymphocytes # 0.6 L (1.0-4.8) k/uL Macrocytosis Marked A APTT (22.0-30.0) sec ABG pCO2 (35-45) mmHg ABG pO2 (83-108) mmHg ABG Total CO2 (19-24) mmol/L ABG O2 Saturation (94-97) % Sodium 133 L (137-145) mmol/L BUN 60 H (9-20) mg/dL Creatinine 1.40 H (0.66-1.25) mg/dL Glucose 194 H (74-99) mg/dL POC Glucose (mg/dL) 316 H (75-99) mg/dL Calcium 7.2 L (8.4-10.2) mg/dL Crossmatch 07/15/19 07/15/19 07/15/19 Range/Units 04:13 04:13 05:15 WBC (3.8-10.6) k/uL RBC (4.30-5.90) m/uL Hgb (13.0-17.5) gm/dL Hct (39.0-53.0) % MCV (80.0-100.0) fL MCH (25.0-35.0) pg MCHC (31.0-37.0) g/dL RDW (11.5-15.5) % Plt Count (150-450) k/uL Neutrophils # (1.3-7.7) k/uL Lymphocytes # (1.0-4.8) k/uL Macrocytosis APTT 44.2 H (22.0-30.0) sec ABG pCO2 34 L (35-45) mmHg ABG pO2 77 L (83-108) mmHg ABG Total CO2 25 H (19-24) mmol/L ABG O2 Saturation (94-97) % Sodium (137-145) mmol/L BUN (9-20) mg/dL Creatinine (0.66-1.25) mg/dL Glucose (74-99) mg/dL POC Glucose (mg/dL) 238 H (75-99) mg/dL Calcium (8.4-10.2) mg/dL Crossmatch 07/15/19 Range/Units 05:17 WBC (3.8-10.6) k/uL RBC (4.30-5.90) m/uL Hgb (13.0-17.5) gm/dL Hct (39.0-53.0) % MCV (80.0-100.0) fL MCH (25.0-35.0) pg MCHC (31.0-37.0) g/dL RDW (11.5-15.5) % Plt Count (150-450) k/uL Neutrophils # (1.3-7.7) k/uL Lymphocytes # (1.0-4.8) k/uL Macrocytosis APTT (22.0-30.0) sec ABG pCO2 (35-45) mmHg ABG pO2 (83-108) mmHg ABG Total CO2 (19-24) mmol/L ABG O2 Saturation (94-97) % Sodium (137-145) mmol/L BUN (9-20) mg/dL Creatinine (0.66-1.25) mg/dL Glucose (74-99) mg/dL POC Glucose (mg/dL) (75-99) mg/dL Calcium (8.4-10.2) mg/dL Crossmatch See Detail Microbiology - Last 24 Hours (Table) 07/14/19 21:30 Gram Stain - Preliminary Sputum Sputum Culture - Preliminary 07/14/19 12:20 Gram Stain - Preliminary Elbow - Right Wound Culture - Preliminary Assessment and Plan Assessment: Ventilator dependent Acute hypoxic respiratory failure secondary to COPD, CHF and possible pneumonia -IV antibiotics and breathing treatments Acute blood loss anemia -2 pack red blood cells ordered -Recheck CBC Sepsis with E. coli UTI and bacteremia -continue zosyn and ID recs appreciated Severe PAD with Debility - vascular to reassess patient regarding change of status and future treatment Plans Discussed with daughter for possible CODE STATUS change in the future -Acute renal failure with Left-sided hydronephrosis stable -Acute metabolic encephalopathy secondary to above -PAF amioderone and metoprolol per cardiology Steroid-induced hyperglycemia History of alcohol abuse GI and DVT prophylaxis Prognosis is guarded. CODE status to be reassessed after vascular reassessment
[2019-07-15] MEDS: AMIODARONE 200 MG TAB PO SCH ×2 (10:05→21:13)
--- NOTE | 2019-07-15 10:06 | P.PN ---
Subjective Progress Note Date: 07/15/19 Patient seen and examined. Overnight events noted, patient intubated due to agitation and tachycardia with respiratory distress. Labs appreciated, decreased hemoglobin 6.6 this morning from 8. Objective - Vital Signs Vital signs: Vital Signs Temp 98.6 F 07/15/19 08:00 Pulse 78 07/15/19 09:30 Resp 22 07/15/19 09:30 BP 91/61 07/15/19 09:30 Pulse Ox 99 07/15/19 09:30 Intake & Output 07/14/19 07/15/19 07/15/19 18:59 06:59 18:59 Intake Total 3930.878 7951.285 461.022 Output Total 1375 1925 450 Balance 314.331 197.285 11.022 Weight 85.3 kg 90.1 kg Intake: IV 1627 1606 345 0.9 NS 120 120 30 Fat Emulsion 20% 250 ml 147 126 In Empty Bag 1 bag @ 21 mls/hr IV DAILY RENE Rx#: [id number] Mvi, Adult No.4 with Vit 1260 1260 315 K 10 ml Trace (Conc-1Ml/ Dose) 1 ml In Amino Acid 4.25%-D10w+Lytes*E* 1,000 ml @ 105 mls/hr IV .BY DURATION RENE Rx#: [id number] Piperacillin-Tazobactam 3 100 100 .375 gm In Sodium Chloride 0.9% 100 ml @ 25 mls/hr IVPB Q8HR RENE Rx# :[id number] Intake, IV Titration 62.331 456.285 116.022 Amount Heparin Sod,Pork in 0.45% 62.331 268.363 NaCl 25,000 unit In 0.45 % NaCl 1 250ml.bag @ 11.6 UNITS/KG/HR 9.999 mls/hr IV .Q24H RENE Rx#: [id number] Norepinephrine 8 mg In 87.922 Sodium Chloride 0.9% 250 ml @ 0.05 MCG/KG/MIN 8. 253 mls/hr IV .Q24H RENE Rx#:[id number] Propofol 1,000 mg In 100 116.022 Empty Bag 1 bag @ Titrate IV .Q0M RENE Rx#: [id number] Blood Product 0 Rc As-1 Unit 0 [id number] Other 60 Output: Gastric Drainage 350 100 Urine 1375 1575 350 Other: Voiding Method Indwelling Catheter Indwelling Catheter - Exam Intubated and sedated on low-dose vasopressor. Heart is regular at this time. Mechanical breath sounds. Abdomen soft, no apparent tenderness. No rigidity. No guarding. Bilateral lower extremities are dry. Dry gangrene as previous, areas of ecchymotic appearing skin somewhat improved from a few days previous. Bilateral hands with ecchymotic/cyanotic changes. Distal fingertips with gangrene. Delayed capillary refill. - Labs CBC & Chem 7: 07/15/19 04:13 07/15/19 04:13 Labs: Abnormal Lab Results - Last 24 Hours (Table) 07/14/19 07/14/19 07/14/19 Range/Units 10:30 17:18 19:26 WBC (3.8-10.6) k/uL RBC (4.30-5.90) m/uL Hgb (13.0-17.5) gm/dL Hct (39.0-53.0) % MCV (80.0-100.0) fL MCH (25.0-35.0) pg MCHC (31.0-37.0) g/dL RDW (11.5-15.5) % Plt Count (150-450) k/uL Neutrophils # (1.3-7.7) k/uL Lymphocytes # (1.0-4.8) k/uL Macrocytosis APTT 37.3 H (22.0-30.0) sec ABG pCO2 (35-45) mmHg ABG pO2 306 H (83-108) mmHg ABG Total CO2 25 H (19-24) mmol/L ABG O2 Saturation 99.6 H (94-97) % Sodium (137-145) mmol/L BUN (9-20) mg/dL Creatinine (0.66-1.25) mg/dL Glucose (74-99) mg/dL POC Glucose (mg/dL) 259 H (75-99) mg/dL Calcium (8.4-10.2) mg/dL Crossmatch 07/14/19 07/14/19 07/14/19 Range/Units 20:00 20:15 20:30 WBC 13.7 H (3.8-10.6) k/uL RBC 2.05 L (4.30-5.90) m/uL Hgb 8.5 L (13.0-17.5) gm/dL Hct 27.5 L (39.0-53.0) % MCV 134.2 H (80.0-100.0) fL MCH 41.3 H (25.0-35.0) pg MCHC 30.7 L (31.0-37.0) g/dL RDW 19.1 H (11.5-15.5) % Plt Count 128 L (150-450) k/uL Neutrophils # (1.3-7.7) k/uL Lymphocytes # (1.0-4.8) k/uL Macrocytosis Marked A APTT 51.0 H (22.0-30.0) sec ABG pCO2 (35-45) mmHg ABG pO2 (83-108) mmHg ABG Total CO2 (19-24) mmol/L ABG O2 Saturation (94-97) % Sodium (137-145) mmol/L BUN (9-20) mg/dL Creatinine (0.66-1.25) mg/dL Glucose (74-99) mg/dL POC Glucose (mg/dL) 321 H (75-99) mg/dL Calcium (8.4-10.2) mg/dL Crossmatch 07/15/19 07/15/19 07/15/19 Range/Units 00:15 04:13 04:13 WBC (3.8-10.6) k/uL RBC 1.69 L (4.30-5.90) m/uL Hgb 6.6 L* D (13.0-17.5) gm/dL Hct 21.6 L (39.0-53.0) % MCV 127.9 H D (80.0-100.0) fL MCH 39.0 H (25.0-35.0) pg MCHC 30.5 L (31.0-37.0) g/dL RDW 19.1 H (11.5-15.5) % Plt Count 131 L (150-450) k/uL Neutrophils # 8.0 H (1.3-7.7) k/uL Lymphocytes # 0.6 L (1.0-4.8) k/uL Macrocytosis Marked A APTT (22.0-30.0) sec ABG pCO2 (35-45) mmHg ABG pO2 (83-108) mmHg ABG Total CO2 (19-24) mmol/L ABG O2 Saturation (94-97) % Sodium 133 L (137-145) mmol/L BUN 60 H (9-20) mg/dL Creatinine 1.40 H (0.66-1.25) mg/dL Glucose 194 H (74-99) mg/dL POC Glucose (mg/dL) 316 H (75-99) mg/dL Calcium 7.2 L (8.4-10.2) mg/dL Crossmatch 07/15/19 07/15/19 07/15/19 Range/Units 04:13 04:13 05:15 WBC (3.8-10.6) k/uL RBC (4.30-5.90) m/uL Hgb (13.0-17.5) gm/dL Hct (39.0-53.0) % MCV (80.0-100.0) fL MCH (25.0-35.0) pg MCHC (31.0-37.0) g/dL RDW (11.5-15.5) % Plt Count (150-450) k/uL Neutrophils # (1.3-7.7) k/uL Lymphocytes # (1.0-4.8) k/uL Macrocytosis APTT 44.2 H (22.0-30.0) sec ABG pCO2 34 L (35-45) mmHg ABG pO2 77 L (83-108) mmHg ABG Total CO2 25 H (19-24) mmol/L ABG O2 Saturation (94-97) % Sodium (137-145) mmol/L BUN (9-20) mg/dL Creatinine (0.66-1.25) mg/dL Glucose (74-99) mg/dL POC Glucose (mg/dL) 238 H (75-99) mg/dL Calcium (8.4-10.2) mg/dL Crossmatch 07/15/19 Range/Units 05:17 WBC (3.8-10.6) k/uL RBC (4.30-5.90) m/uL Hgb (13.0-17.5) gm/dL Hct (39.0-53.0) % MCV (80.0-100.0) fL MCH (25.0-35.0) pg MCHC (31.0-37.0) g/dL RDW (11.5-15.5) % Plt Count (150-450) k/uL Neutrophils # (1.3-7.7) k/uL Lymphocytes # (1.0-4.8) k/uL Macrocytosis APTT (22.0-30.0) sec ABG pCO2 (35-45) mmHg ABG pO2 (83-108) mmHg ABG Total CO2 (19-24) mmol/L ABG O2 Saturation (94-97) % Sodium (137-145) mmol/L BUN (9-20) mg/dL Creatinine (0.66-1.25) mg/dL Glucose (74-99) mg/dL POC Glucose (mg/dL) (75-99) mg/dL Calcium (8.4-10.2) mg/dL Crossmatch See Detail Microbiology - Last 24 Hours (Table) 07/14/19 21:30 Gram Stain - Preliminary Sputum Sputum Culture - Preliminary 07/14/19 12:20 Gram Stain - Preliminary Elbow - Right Wound Culture - Preliminary Assessment and Plan Assessment: #1 bilateral lower extremity toe ulcerations, [place] 5 peripheral arterial disease #2 acute metabolic encephalopathy #3 acute hypoxic respiratory failure, now intubated #4 metabolic acidosis with acute kidney injury -improved 5 acute kidney injury - improved #6 history of abdominal aortic aneurysm status post repair #7 history of alcohol abuse and withdrawal #8 chronic anemia, worsened acute anemia currently. No evidence of active bleeding #9 thrombocytopenia - improved Plan: Patient with worsening anemia overnight, transfuse when necessary. No evidence of any active bleeding. Patient has not had a bowel movement in many days, we will add suppositories for rectal stimulation. Monitor labs and if no continue dropping, would maintain heparin drip if able. Monitor for signs of retro peritoneal hematoma. May consider computed tomography scan if no improvement of laboratories with transfusion. At this time no surgical intervention planned. He likely will need some degree of amputations in the future once viable tissue delineates
[2019-07-15] MEDS: PIPERACILLIN-TAZOBACTAM 3.375 GM in SODIUM CHLORIDE 0.9% 100 ML IVPB SCH ×5 (10:13→23:14)
[2019-07-15] MEDS: CHLORHEXIDINE GLUCONATE 15 ML CUP MUCOUS MEM SCH ×2 (10:15→21:13)
[2019-07-15] MEDS: PANTOPRAZOLE 40 MG/10 ML VIAL IV SCH (10:15)
--- NOTE | 2019-07-15 11:27 | P.PN ---
Subjective Progress Note Date: 07/15/19 Principal diagnosis: This is a 74-year-old patient who is an retired orthopedic surgeon and very severe vasculopath 4 acute kidney injury from ATN from sepsis E. coli bacteremia and urinary tract infection. He was intubated yesterday because of restlessness confusion. Currently on norepinephrine drip. He is on 40% FiO2, sedated. Vital signs are stable with pressures in the 90s 7 systolic to 102 systolic, heart rate in the 70s to 80s, normal sinus rhythm. Beginning adequate amount of urine, last 24 hour urine is 11 45 mL He has severe peripheral vascular disease, with gangrenous toes and fingers bluish both hands and feet. Objective - Vital Signs Vital signs: Vital Signs Temp 98.6 F 07/15/19 10:45 Pulse 78 07/15/19 11:04 Resp 30 H 07/15/19 11:00 BP 102/65 07/15/19 11:00 Pulse Ox 98 07/15/19 11:00 Intake & Output 07/14/19 07/15/19 07/15/19 18:59 06:59 18:59 Intake Total 9809.754 8898.285 1702.022 Output Total 1375 1925 850 Balance 314.331 197.285 852.022 Weight 85.3 kg 90.1 kg 90.1 kg Intake: IV 1627 1606 255 0.9 Normal Saline @ 10mL/ 120 120 50 hr as KVO Fat Emulsion 20% 250 ml 147 126 In Empty Bag 1 bag @ 21 mls/hr IV DAILY RENE Rx#: [id number] Mvi, Adult No.4 with Vit 1260 1260 105 K 10 ml Trace (Conc-1Ml/ Dose) 1 ml In Amino Acid 4.25%-D10w+Lytes*E* 1,000 ml @ 105 mls/hr IV .BY DURATION RENE Rx#: [id number] Piperacillin-Tazobactam 3 100 100 100 .375 gm In Sodium Chloride 0.9% 100 ml @ 25 mls/hr IVPB Q8HR RENE Rx# :[id number] Intake, IV Titration 62.331 036.688 6899.022 Amount Heparin Sod,Pork in 0.45% 62.331 268.363 NaCl 25,000 unit In 0.45 % NaCl 1 250ml.bag @ 11.6 UNITS/KG/HR 9.999 mls/hr IV .Q24H RENE Rx#: [id number] Mvi, Adult No.4 with Vit 1021 K 10 ml Trace (Conc-1Ml/ Dose) 1 ml Sodium Chloride 2.5MEQ/ml Vial 25 meq In Amino Acid 4.25 %-D10w+Lytes*E* 1,000 ml @ 105 mls/hr IV .BY DURATION RENE Rx#: [id number] Norepinephrine 8 mg In 87.922 Sodium Chloride 0.9% 250 ml @ 0.05 MCG/KG/MIN 8. 253 mls/hr IV .Q24H RENE Rx#:[id number] Propofol 1,000 mg In 100 116.022 Empty Bag 1 bag @ Titrate IV .Q0M RENE Rx#: [id number] Blood Product 310 Rc As-1 Unit 310 [id number] Other 60 Output: Gastric Drainage 350 300 Urine 1375 1575 550 Other: Voiding Method Indwelling Catheter Indwelling Catheter On examination obtunded sedated on vent. Since yesterday HEENT exam no JVP. Lungs are clear to auscultation with good air entry bilaterally Heart sounds are unremarkable normal sinus rhythm Abdomen soft nondistended Extremity exam was trace edema with bluish discoloration of both feet and hands as well as gangrene of the tip of multiple toes and fingers and supposedly has bedsores as well - Labs CBC & Chem 7: 07/15/19 04:13 07/15/19 04:13 Labs: Abnormal Lab Results - Last 24 Hours (Table) 07/14/19 07/14/19 07/14/19 Range/Units 17:18 19:26 20:00 WBC (3.8-10.6) k/uL RBC (4.30-5.90) m/uL Hgb (13.0-17.5) gm/dL Hct (39.0-53.0) % MCV (80.0-100.0) fL MCH (25.0-35.0) pg MCHC (31.0-37.0) g/dL RDW (11.5-15.5) % Plt Count (150-450) k/uL Neutrophils # (1.3-7.7) k/uL Lymphocytes # (1.0-4.8) k/uL Macrocytosis APTT 51.0 H (22.0-30.0) sec ABG pCO2 (35-45) mmHg ABG pO2 306 H (83-108) mmHg ABG Total CO2 25 H (19-24) mmol/L ABG O2 Saturation 99.6 H (94-97) % Sodium (137-145) mmol/L BUN (9-20) mg/dL Creatinine (0.66-1.25) mg/dL Glucose (74-99) mg/dL POC Glucose (mg/dL) 259 H (75-99) mg/dL Calcium (8.4-10.2) mg/dL Crossmatch 07/14/19 07/14/19 07/15/19 Range/Units 20:15 20:30 00:15 WBC 13.7 H (3.8-10.6) k/uL RBC 2.05 L (4.30-5.90) m/uL Hgb 8.5 L (13.0-17.5) gm/dL Hct 27.5 L (39.0-53.0) % MCV 134.2 H (80.0-100.0) fL MCH 41.3 H (25.0-35.0) pg MCHC 30.7 L (31.0-37.0) g/dL RDW 19.1 H (11.5-15.5) % Plt Count 128 L (150-450) k/uL Neutrophils # (1.3-7.7) k/uL Lymphocytes # (1.0-4.8) k/uL Macrocytosis Marked A APTT (22.0-30.0) sec ABG pCO2 (35-45) mmHg ABG pO2 (83-108) mmHg ABG Total CO2 (19-24) mmol/L ABG O2 Saturation (94-97) % Sodium (137-145) mmol/L BUN (9-20) mg/dL Creatinine (0.66-1.25) mg/dL Glucose (74-99) mg/dL POC Glucose (mg/dL) 321 H 316 H (75-99) mg/dL Calcium (8.4-10.2) mg/dL Crossmatch 07/15/19 07/15/19 07/15/19 Range/Units 04:13 04:13 04:13 WBC (3.8-10.6) k/uL RBC 1.69 L (4.30-5.90) m/uL Hgb 6.6 L* D (13.0-17.5) gm/dL Hct 21.6 L (39.0-53.0) % MCV 127.9 H D (80.0-100.0) fL MCH 39.0 H (25.0-35.0) pg MCHC 30.5 L (31.0-37.0) g/dL RDW 19.1 H (11.5-15.5) % Plt Count 131 L (150-450) k/uL Neutrophils # 8.0 H (1.3-7.7) k/uL Lymphocytes # 0.6 L (1.0-4.8) k/uL Macrocytosis Marked A APTT 44.2 H (22.0-30.0) sec ABG pCO2 (35-45) mmHg ABG pO2 (83-108) mmHg ABG Total CO2 (19-24) mmol/L ABG O2 Saturation (94-97) % Sodium 133 L (137-145) mmol/L BUN 60 H (9-20) mg/dL Creatinine 1.40 H (0.66-1.25) mg/dL Glucose 194 H (74-99) mg/dL POC Glucose (mg/dL) (75-99) mg/dL Calcium 7.2 L (8.4-10.2) mg/dL Crossmatch 07/15/19 07/15/19 07/15/19 Range/Units 04:13 05:15 05:17 WBC (3.8-10.6) k/uL RBC (4.30-5.90) m/uL Hgb (13.0-17.5) gm/dL Hct (39.0-53.0) % MCV (80.0-100.0) fL MCH (25.0-35.0) pg MCHC (31.0-37.0) g/dL RDW (11.5-15.5) % Plt Count (150-450) k/uL Neutrophils # (1.3-7.7) k/uL Lymphocytes # (1.0-4.8) k/uL Macrocytosis APTT (22.0-30.0) sec ABG pCO2 34 L (35-45) mmHg ABG pO2 77 L (83-108) mmHg ABG Total CO2 25 H (19-24) mmol/L ABG O2 Saturation (94-97) % Sodium (137-145) mmol/L BUN (9-20) mg/dL Creatinine (0.66-1.25) mg/dL Glucose (74-99) mg/dL POC Glucose (mg/dL) 238 H (75-99) mg/dL Calcium (8.4-10.2) mg/dL Crossmatch See Detail Microbiology - Last 24 Hours (Table) 07/14/19 21:30 Gram Stain - Preliminary Sputum Sputum Culture - Preliminary 07/14/19 12:20 Gram Stain - Preliminary Elbow - Right Wound Culture - Preliminary Assessment and Plan Assessment: Impression 1. Acute kidney injury secondary to sepsis UTI, creatinine is down to 1.4 with adequate urine output 2. Intubated yesterday on the vent 40% FiO2 after being confused 3. On levo fed for blood pressure support 4. Hypomagnesemia poor intake 5. Anemia with hemoglobin down Recommendation 1. Transfuse as being in done 2. Magnesium replacement with protocol 3. Maintain blood pressure with inotropes but because the gangrene need to be tapered down as soon as possible 4. We'll continue to follow his electrolytes urine output and renal function
[2019-07-15] MEDS ORDERED: DEXTROSE 50% SYRINGE 50 ML IVP ONE (11:44)
--- NOTE | 2019-07-15 11:47 | P.PN ---
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 coli sepsis secondary to UTI. The patient subsequently went into hypoxic respiratory failure requiring BiPAP for respiratory support with a component of fluid overload and possible pneumonia. In addition, the patient had acute kidney injury, atrial fibrillation with rapid ventricular response. He is known to have also peripheral vascular disease. The patient was placed on BiPAP for respiratory support and he was kept in the intensive care unit. In terms of his E. coli sepsis, urine culture and the blood culture was positive and the patient is still receiving IV antibiotics and the patient is currently on IV Zosyn. He is afebrile and he is hemodynamically stable on no pressors and the patient is not requiring any pressors. In fact, the patient is on amiodarone drip at 0.5 mg per minute and addition to Cardizem at 10 mg an hour for rate control regarding his atrial fibrillation. His echocardiogram was completed on 07/05/2019 and the patient was found to have a impaired LV function with an ejection fraction of 30-35% and mildly enlarged RV with a right-sided pulmonary artery pressure is estimated to be around 46 mmHg. His renal function was also abnormal. The patient developed an acute kidney injury, admission with a crea tinine of 4.6 which gradually improved during the course of his treatment with a decline in the creatinine levels. The patient also had a anion gap metabolic acidosis with gradually recovered. Nephrology is on the case. Ultrasound the kidneys did not show any significant hydronephrosis on this patient. The chest x-ray showed left basilar consolidation right perihilar opacity consistent with multifocal atelectasis/pneumonia. He is receiving PPN for nutritional support. He does have also comorbidities including hypertension, hyperlipidemia, COPD and addition to chronic alcohol use. On today's evaluation of 07/10/2019, the patient is lethargic and weak yet awake and following commands and answering questions appropriately. He is on 3 L of oxygen by nasal cannula. He is not utilizing his BiPAP for now. He remains in atrial fibrillation. He remains on amiodarone maintenance of 0.5 mg per minute. He is on IV Zosyn. His thrombocytopenia is improving. He is receiving PPN for nutritional support. He does have severe peripheral vascular disease along with chronic arterial necrot ic ulcers in his toes bilaterally in addition to some necrotic wounds in the ankles bilaterally worse on the right. He remains afebrile. On today's evaluation of 07/11/2019 the patient is essentially same yesterday. He is lethargic. He is weak. He follows some simple commands. He seems to be appropriate however profoundly weak. He passed a swallow evaluation. Nevertheless, he is oral intake is considered to be low and the patient will be kept on PPN for nutritional support. The patient's IV medication will be switched over to oral as the patient is on amiodarone and Cardizem drip for his atrial fibrillation. Is currently on 2 L of oxygen by nasal cannula. Urine culture came back positive for E. coli. For now, the patient is on oral amiodarone regarding his atrial fibrillation 400 mg by mouth twice a day. The patient is on Toprol 25 mg twice a day. He is receiving Levemir insulin 20 units daily at bedtime. Discontinuation of the IV Solu Medrol helped his blood sugar control. Nevertheless, the patient on PPN which is obviously contributing to his blood sugar elevation. No other significant events overnight. His resting comfortably in bed. On 07/12/2019, the patient is essentially the same condition. Oral intake is minimal and he is not eating much approximately 10-20% of his tray is being utilized on a daily basis. For that reason the patient is being supplemented with TPN for nutritional support. He remains on IV Zosyn. His urine culture came back positive for E. coli. Blood culture came back positive for E. coli. He is on 40s of oxygen by nasal cannula with a pulse ox of 91%. He is awake and alert and is following commands and answering questions. Nevertheless, he remains wide lethargic and weak and he is very much laying in bed without much o f an activity. He has extensive bruising over extremities in addition to severe peripheral vascular disease with chronic ulcerations and his toes bilaterally and these are arterial ulcers are quite necrotic. Vascular surgeries on the case and no surgical interventions to be done. Renal function continues to improve in the creatinine is down to 1.7. Hemoglobin is at 9 without any significant leukocytosis. The blood sugar is under adequate control as the patient is on Lantus insulin in addition to sliding scale coverage. On 07/13/2019, the patient is still doing poorly. Laying in bed. No significant respiratory distress. Nevertheless, he seems to be quite lethargic and he drifts to sleep if left unstimulated. I was told that he worked with physical therapy. His oral intake is still low and the patient is still receiving TPN for nutritional support. The patient is completing the course of his IV Zosyn regarding E. coli sepsis and the hemodynamic parameters is improved, his blood pressure is normalized, his renal function continues to improve and his platelet count is also normalized. On today's evaluation, the skin in the lower extremity and the feet of significantly more mottled and the patient has no Doppler pulses that I was able to identify in his legs. Based on that, I recommended an immediate vascular surgery reevaluation regarding this issue. I discussed this case with Dr. Ladd. We decided to put the patient IV heparin now that his platelet count has improved. No plans for any surgical intervention. He has extensive vascular disease with chronic arterial ulcers in lower extremities bilaterally. These ulcers are dry and necrotic and nondraining. No fever. No chills. He has had no bowel movement and the patient will be given l laxative in that regard. I was able to talk to the daughter yesterday. I discussed with her his poor prognosis based on the above- mentioned comorbidities. Obviously the vascular insufficiency is a significant issue for now. He is on Levemir insulin and the dose was adjusted up to 20 units along with his vascular coverage. On 07/14/2019, no major changes in his condition and the patient is essentially the same, but he is laying down comfortably in bed, lethargic, at times confused, and sleepy. No pulses in lower extremities bilaterally and I was unable to also feel the popliteal pulses. The feet are extremely cold and ischemic with arterial necrotic wounds bilaterally. He is currently on IV heparin. Denies having any pain issues. No issues with bleeding complications. Skin is mottled and there are some areas of subcutaneous bruising in upper extremities bilaterally. He is still receiving TPN for nutritional support. Cardiac rhythm is sinus on oral amiodarone 400 mg by mouth twice a day. The patient has no hemodynamic instability. Pro-calcitonin level has dropped as the patient was treated for E. coli septicemia. Contacted the daughter. Unfortunately this is not a good situation specially the patient is quite debilitated and his oral intake is quite minimal and the patient is unable to show any signs of any clinical recovery. Furthermore, there is further ischemic changes in lower extremities bilaterally and vascular surgeon is contemplating subsequent amputation of later stage as the patient is not a candidate for any vascular interventions other than amputation for now. No clear lines of the medication lower extremities. Hemoglobin is at 7.8. On 07/15/2019, the patient is being seen in follow-up in intensive care unit. The patient's condition decompensated yesterday afternoon. The patient became progressively more lethargic and weak and tachypneic and hypoxic. He was not following any commands and he was found to be significant respiratory distress. At that point we decided to proceed with intubation and following that'll place the patient on mechanical ventilator. Note that the family was informed of these changes and intubation was cleared with the daughters. For now, the patient is an assist-control mode of ventilation at the rate of 16 with a tidal volume of 450 and FiO2 of 40% with a PEEP of 5. The patient post intubation blood gas was reviewed. There is a sitter ventilator changes were done. The patient was weaned down to 40% FiO2. Meanwhile, the chest x-ray shows no evidence of an acute pneumonia, and the blood gas showed a pH of 7.45 with a pCO2 of 34 and pO2 of 77. The morning blood gases showed a hemoglobin of 6.6 and the patient is receiving a unit of packed RBC. The patient was receiving IV heparin there was no evidence of any acute bleeding. The patient is also is requiring norepinephrine infusion for blood pressure support which is running at 0.08 g per KG per minute. He is currently sedated with propofol running at 40 g per KG per minute. IV fluids are currently at KVO and the patient is on TPN for nutritional support via PICC line. The ultimate goal is to switch this patient for enteral feeding for nutritional support now that we have an axis with a orogastric tube. The patient is afebrile. The patient is extremely poor vascular system with necrotic digits and fingers and upper extremities along with ischemic feet bilaterally with there is absent dorsalis pedis and posterior tibialis. Noted post intubation mechanical ventilation, we were able to obtain Doppler popliteal segments. Nevertheless, the mottling and the line of demarcation is forming in the lower extremities as the patient has extensive necrosis of the toes bilaterally. Family has been made aware. Vester surgeries on the case. In terms of IV access, established also a left IJ triple-lumen catheter without any major difficulties today. Antibiotic coverage with IV Zosyn which is an empiric antibiotic coverage for now. The patient is on Levemir insulin 20 units daily at bedtime along with it. Coverage. Levemir will be kept on hold for now. His cardiac rhythm is A. fib which is well- controlled and the patient remains on amiodarone orally 4 mg by mouth twice a day. I had to stop the metoprolol as the patient become hypotensive requiring pressors. Objective - Vital Signs Vital signs: Vital Signs Temp 98.6 F 07/15/19 10:45 Pulse 78 07/15/19 11:04 Resp 30 H 07/15/19 11:00 BP 102/65 07/15/19 11:00 Pulse Ox 98 07/15/19 11:00 Intake & Output 07/14/19 07/15/19 07/15/19 18:59 06:59 18:59 Intake Total 9827.099 1167.285 1770.903 Output Total 1375 1925 850 Balance 314.331 197.285 920.903 Weight 85.3 kg 90.1 kg 90.1 kg Intake: IV 1627 1606 255 0.9 Normal Saline @ 10mL/ 120 120 50 hr as KVO Fat Emulsion 20% 250 ml 147 126 In Empty Bag 1 bag @ 21 mls/hr IV DAILY [facility] Rx#: [id number] Mvi, Adult No.4 with Vit 1260 1260 105 K 10 ml Trace (Conc-1Ml/ Dose) 1 ml In Amino Acid 4.25%-D10w+Lytes*E* 1,000 ml @ 105 mls/hr IV .BY DURATION [facility] Rx#: [id number] Piperacillin-Tazobactam 3 100 100 100 .375 gm In Sodium Chloride 0.9% 100 ml @ 25 mls/hr IVPB Q8HR [facility] Rx# :[id number] Intake, IV Titration 62.331 625.798 8568.903 Amount Heparin Sod,Pork in 0.45% 62.331 268.363 NaCl 25,000 unit In 0.45 % NaCl 1 250ml.bag @ 11.6 UNITS/KG/HR 9.999 mls/hr IV .Q24H [facility] Rx#: [id number] Mvi, Adult No.4 with Vit 1021 K 10 ml Trace (Conc-1Ml/ Dose) 1 ml Sodium Chloride 2.5MEQ/ml Vial 25 meq In Amino Acid 4.25 %-D10w+Lytes*E* 1,000 ml @ 105 mls/hr IV .BY DURATION [facility] Rx#: [id number] Norepinephrine 8 mg In 87.922 68.881 Sodium Chloride 0.9% 250 ml @ 0.05 MCG/KG/MIN 8. 253 mls/hr IV .Q24H [facility] Rx#:[id number] Propofol 1,000 mg In 100 116.022 Empty Bag 1 bag @ Titrate IV .Q0M [facility] Rx#: [id number] Blood Product 310 Rc As-1 Unit 310 [id number] Other 60 Output: Gastric Drainage 350 300 Urine 1375 1575 550 Other: Voiding Method Indwelling Catheter Indwelling Catheter - Exam Gen. appearance the patient is calm and comfortable likely distress, the patient is well sedated for now. Orogastric and orotracheal tube are both in place. Head exam was generally normal. There was no scleral icterus or corneal arcus. Mucous membranes were moist. Neck was supple and without jugular venous distension, thyromegaly, or carotid bruits. Carotids were easily palpable bilaterally. There was no adenopathy. heart sounds are irregular consistent with atrial fib .Cardiac exam revealed the PMI to be normally situated and sized. The rhythm was regular and no extrasystoles were noted during several minutes of auscultation. The first and second heart sounds were normal and physiologic splitting of the second heart sound was noted. There were no murmurs, rubs, clicks, or gallops. Lungs sounds are diminished in lung bases along with coarse rhonchi and some bibasilar crackles are present. Abdominal exam revealed normal bowel sounds. The abdomen was soft, non-tender, and without masses, organomegaly, or appreciable enlargement of the abdominal aorta. Extremities the patient is known to have peripheral vascular disease and has significant ulceration in nonhealing wounds of the feet and the toes. There is significant acrocyanosis. There is also some mottling of the lower extremities. Skin reveals arterial necrotic ulcers in his toes bilaterally where several toes are necrotic and the patient has necrotic ankle wounds worse on the right lateral aspect of the ankle as well as chronic ecchymotic areas throughout his body. Pulses are absent in the feet bilaterally and the skin is mottled and the feet are extremely cold along with extensive arterial necrotic wounds in his feet and the toes bilaterally. On today's evaluation, there may be a line of demarcation forming in the feet which is an area above the ankle. However, there is some improved Doppler signal in the popliteal artery area. The fingers in the upper extremities are extremely necrotic and black. Pulses in the radial artery are present bilaterally. Neurologically the patient sedated, comfortable on propofol. The patient is in not in acute distress. - Labs CBC & Chem 7: 07/15/19 04:13 07/15/19 04:13 Labs: Abnormal Lab Results - Last 24 Hours (Table) 07/14/19 07/14/19 07/14/19 Range/Units 17:18 19:26 20:00 WBC (3.8-10.6) k/uL RBC (4.30-5.90) m/uL Hgb (13.0-17.5) gm/dL Hct (39.0-53.0) % MCV (80.0-100.0) fL MCH (25.0-35.0) pg MCHC (31.0-37.0) g/dL RDW (11.5-15.5) % Plt Count (150-450) k/uL Neutrophils # (1.3-7.7) k/uL Lymphocytes # (1.0-4.8) k/uL Macrocytosis APTT 51.0 H (22.0-30.0) sec ABG pCO2 (35-45) mmHg ABG pO2 306 H (83-108) mmHg ABG Total CO2 25 H (19-24) mmol/L ABG O2 Saturation 99.6 H (94-97) % Sodium (137-145) mmol/L BUN (9-20) mg/dL Creatinine (0.66-1.25) mg/dL Glucose (74-99) mg/dL POC Glucose (mg/dL) 259 H (75-99) mg/dL Calcium (8.4-10.2) mg/dL Crossmatch 07/14/19 07/14/19 07/15/19 Range/Units 20:15 20:30 00:15 WBC 13.7 H (3.8-10.6) k/uL RBC 2.05 L (4.30-5.90) m/uL Hgb 8.5 L (13.0-17.5) gm/dL Hct 27.5 L (39.0-53.0) % MCV 134.2 H (80.0-100.0) fL MCH 41.3 H (25.0-35.0) pg MCHC 30.7 L (31.0-37.0) g/dL RDW 19.1 H (11.5-15.5) % Plt Count 128 L (150-450) k/uL Neutrophils # (1.3-7.7) k/uL Lymphocytes # (1.0-4.8) k/uL Macrocytosis Marked A APTT (22.0-30.0) sec ABG pCO2 (35-45) mmHg ABG pO2 (83-108) mmHg ABG Total CO2 (19-24) mmol/L ABG O2 Saturation (94-97) % Sodium (137-145) mmol/L BUN (9-20) mg/dL Creatinine (0.66-1.25) mg/dL Glucose (74-99) mg/dL POC Glucose (mg/dL) 321 H 316 H (75-99) mg/dL Calcium (8.4-10.2) mg/dL Crossmatch 07/15/19 07/15/19 07/15/19 Range/Units 04:13 04:13 04:13 WBC (3.8-10.6) k/uL RBC 1.69 L (4.30-5.90) m/uL Hgb 6.6 L* D (13.0-17.5) gm/dL Hct 21.6 L (39.0-53.0) % MCV 127.9 H D (80.0-100.0) fL MCH 39.0 H (25.0-35.0) pg MCHC 30.5 L (31.0-37.0) g/dL RDW 19.1 H (11.5-15.5) % Plt Count 131 L (150-450) k/uL Neutrophils # 8.0 H (1.3-7.7) k/uL Lymphocytes # 0.6 L (1.0-4.8) k/uL Macrocytosis Marked A APTT 44.2 H (22.0-30.0) sec ABG pCO2 (35-45) mmHg ABG pO2 (83-108) mmHg ABG Total CO2 (19-24) mmol/L ABG O2 Saturation (94-97) % Sodium 133 L (137-145) mmol/L BUN 60 H (9-20) mg/dL Creatinine 1.40 H (0.66-1.25) mg/dL Glucose 194 H (74-99) mg/dL POC Glucose (mg/dL) (75-99) mg/dL Calcium 7.2 L (8.4-10.2) mg/dL Crossmatch 07/15/19 07/15/19 07/15/19 Range/Units 04:13 05:15 05:17 WBC (3.8-10.6) k/uL RBC (4.30-5.90) m/uL Hgb (13.0-17.5) gm/dL Hct (39.0-53.0) % MCV (80.0-100.0) fL MCH (25.0-35.0) pg MCHC (31.0-37.0) g/dL RDW (11.5-15.5) % Plt Count (150-450) k/uL Neutrophils # (1.3-7.7) k/uL Lymphocytes # (1.0-4.8) k/uL Macrocytosis APTT (22.0-30.0) sec ABG pCO2 34 L (35-45) mmHg ABG pO2 77 L (83-108) mmHg ABG Total CO2 25 H (19-24) mmol/L ABG O2 Saturation (94-97) % Sodium (137-145) mmol/L BUN (9-20) mg/dL Creatinine (0.66-1.25) mg/dL Glucose (74-99) mg/dL POC Glucose (mg/dL) 238 H (75-99) mg/dL Calcium (8.4-10.2) mg/dL Crossmatch See Detail Microbiology - Last 24 Hours (Table) 07/14/19 21:30 Gram Stain - Preliminary Sputum Sputum Culture - Preliminary 07/14/19 12:20 Gram Stain - Preliminary Elbow - Right Wound Culture - Preliminary Assessment and Plan Plan: 1 acute hypoxic respiratory failure, currently intubated on mechanical ventilator. The patient became progressively more hypoxic and tachypneic yesterday requiring intubation and mechanical ventilation to secure an airway and secure adequate oxygenation and ventilation. Chest x-ray shows no clear evidence of pneumonia on today's evaluation. I think his respiratory failure is multifactorial especially with his ongoing extensive ischemic changes in lower extremities and approximately is bilaterally. 3 sepsis with E. coli bacteremia secondary to an underlying UTI currently on IV Zosyn. The patient is hemodynamically stable on no pressors for now. The pro- calcitonin level has dropped and the patient was treated with IV antibiotics and post intubation the patient required to be placed back on pressors which is currently a low-dose norepinephrine infusion running at 0.08 g per KG per minute. 3 altered mentation secondary to above, improved, profoundly weak, the patient never improved his profoundly has remained quite debilitated. The time of the intubation. 4 acute kidney injury possibly with an underlying chronic kidney disease, improving and the patient's creatinine is down to 1.4 5 COPD 6 chronic atrial fibrillation with rapid ventricular response currently on a combination of IV amiodarone and IV Cardizem and these medications has been switched to oral as the patient is able to take oral medication. He'll be given oral amiodarone . He remains atrial fibrillation. Rate is under better control for now. 7 severe peripheral vascular disease, severe with chronic arterial ulcers in the lower extremities bilaterally with necrotic digits and necrotic once in the ankles with diminished pulses lower extremities bilaterally. No pulses in lower extremities. No popliteal or dorsalis pedis or posterior tibialis signals. The feet are ischemic and cold with necrotic digits and necrotic ulcers bilaterally. These are the fingers are also necrotic bilaterally although there is some radial pulses bilaterally felt in the upper extremities. 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 9 hyperlipidemia 10 hypertension history of 11 chronic history of alcoholism 12 anion gap metabolic acidosis, recovered 13 chronic anemia, with an acute drop in hemoglobin down to 6.6, exact cause is not clear the patient received a unit of packed RBC. 14 chronic thrombocytopenia with acute drop in the platelet count, likely is consumptive secondary to sepsis, and the plated count is improving for now 15 PPN for nutritional support, and the patient is going to be switched to enteral feeding for nutritional support 16 diabetes mellitus currently on Levemir in addition to sliding scale coverage. Plan continue ventilator management and ventilator support in the necessary vent changes were done Keep the patient sedated with propofol vascular surgery follow-up regarding lower extremities and upper extremity vascular ischemic changes Continued IV heparin Continued IV Zosyn Levemir insulin for blood sugar control in addition to sliding scale coverage Monitor renal function which is improving Monitor plated count which is improving, they're improved and we will to start IV heparin Initiate enteral feeding for nutritional support and stop the TPN Hold metoprolol for now as the patient is requiring pressors. Wean off pressors and gradually stop based on the patient's blood pressure response Incidental triple-lumen catheter, unable to insert an Artline because of severe vascular insufficiency Received a unit of packed RBC a and monitor the hemoglobin Prognosis extremely poor. We'll continue to follow. Is a critically care evaluation was done more than 30 minutes. Time with Patient: Greater than 30
--- NOTE | 2019-07-15 11:49 | P.PCN ---
Date of Procedure: 07/15/19 Preoperative Diagnosis: Hypotension Postoperative Diagnosis: Hypotension, acute hypoxic respiratory failure Procedure(s) Performed: Central line insertion Anesthesia: local Surgeon: Gabo Govea Condition: critical Disposition: ICU Operative Findings: Indication: Hemodynamic monitoring/Intravenous access. A time-out was completed verifying correct patient, procedure, site, positioning, and implant(s) or special equipment if applicable. The patient was placed in a dependent position appropriate for central line placement based on the vein to be cannulated. The patients left neck anesthetize the surrounding skin area. A triple lumen 9F Cordis catheter was introduced into the left internal jugular vein using Seldinger technique. The catheter was threaded smoothly over the guide wire and appropriate blood return was obtained. Each lumen of the catheter was evacuated of air and flushed with sterile saline. The catheter was then sutured in place to the skin and a sterile dressing applied. Perfusion to the extremity distal to the point of catheter insertion was checked and found to be adequate. The patient tolerated the procedure well and there were no complications.
[2019-07-15 11:51] LABS: Glucose,Whole Blood 40 mg/dL (75-99)
[2019-07-15 11:51] LABS: Glucose,Whole Blood 319 mg/dL (75-99)
[2019-07-15] MEDS: MAGNESIUM SULFATE-D5W PMX 1 GM in DEXTROSE/WATER 1 100ML.BAG IVPB SCH ×2 (12:07→14:16)
[2019-07-15 13:18] LABS: Anisocytosis Moderate; HCT 24.8 % (39.0-53.0); Hypochromasia Moderate; MCH 38.1 pg (25.0-35.0); MCHC 32.1 g/dL (31.0-37.0); Macrocytosis Marked; Mean Platelet Volume 11.3; Platelet Count 154 k/uL (150-450); Poikilocytosis Slight; RBC 2.09 m/uL (4.30-5.90); RDW 22.6 % (11.5-15.5); WBC 11.9 k/uL (3.8-10.6)
[2019-07-15 13:25] LABS: MCV 118.5 fL (80.0-100.0)
[2019-07-15] MEDS: NOREPINEPHRINE 8 MG in SODIUM CHLORIDE 0.9% 250 ML IV SCH (18:33)
[2019-07-15 18:40] LABS: Glucose,Whole Blood 79 mg/dL (75-99)
[2019-07-15] MEDS: INSULIN DETEMIR (LEVEMIR) 100 UNIT/ML SYR SQ SCH (19:02)
[2019-07-15 20:46] LABS: Glucose,Whole Blood 86 mg/dL (75-99)
[2019-07-15 21:04] LABS: Anisocytosis Moderate; HCT 26.2 % (39.0-53.0); HGB 8.4 gm/dL (13.0-17.5); Hypochromasia Moderate; MCH 37.9 pg (25.0-35.0); MCHC 32.1 g/dL (31.0-37.0); MCV 118.1 fL (80.0-100.0); Macrocytosis Marked; Mean Platelet Volume 11.6; Platelet Count 154 k/uL (150-450); Poikilocytosis Slight; RBC 2.22 m/uL (4.30-5.90); RDW 22.8 % (11.5-15.5); WBC 11.7 k/uL (3.8-10.6)
[2019-07-15 23:49] LABS: Glucose,Whole Blood <20 mg/dL (75-99)
[2019-07-15 23:51] LABS: Glucose,Whole Blood 108 mg/dL (75-99)
--- NOTE | 2019-07-16 00:08 | PN ---
PROGRESS NOTE DATE OF SERVICE: 07/15/2019 REASON FOR FOLLOWUP: 1. E coli urinary tract infection and bacteremia. 2. Aspiration pneumonia. INTERVAL HISTORY: The patient went into respiratory distress and ended up getting intubated. The patient is currently on a low-dose pressor. FiO2 is currently 40%. No significant purulent secretion in the ET or any diarrhea has been reported. PHYSICAL EXAMINATION: Blood pressure 117/73 with a pulse of 71, temperature 98.8. He is 90% on 40% FiO2. General description is an elderly male lying in bed, intubated on the vent. Respiratory system: Unlabored breathing, decreased breath sounds at the base. No wheeze. Heart S1, S2. Regular rate and rhythm. Abdomen soft, no tenderness. Extremities show no change in bilateral feet area. LABS: Hemoglobin is 8.4, white count 11.7, BUN of 16, and creatinine 1.40. DIAGNOSTIC IMPRESSION AND PLAN: 1. Patient with acute respiratory failure which is likely multifactorial with component of aspiration pneumonia, also with E coli bacteremia and urinary source. Patient is covered with Zosyn to continue monitor clinical course closely. 2. Right hand wound. Local care to continue with [facility] and continue supportive care. MMODL / IJN: [id number] /
[2019-07-16] MEDS: INSULIN ASPART (NovoLOG) 100 UNIT/ML VIAL SQ SCH ×4 (02:29→18:36)
[2019-07-16] MEDS: PROPOFOL 1,000 MG in EMPTY BAG 1 BAG IV SCH ×4 (05:15→21:13)
[2019-07-16] MEDS: HEPARIN SOD,PORK IN 0.45% NACL 25,000 UNIT in 0.45% NACL 1 250ML.BAG IV SCH (05:16)
[2019-07-16 05:27] LABS: Allen Test Performed? Yes
[2019-07-16 05:34] LABS: ABG Base Excess -0.8 mmol/L; ABG HCO3 23 mmol/L (21-25); ABG Oxygen Saturation 98.2 % (94-97); ABG PCO2 35 mmHg (35-45); ABG PH 7.44 (7.35-7.45); ABG PO2 97 mmHg (83-108); ABG TCO2 24 mmol/L (19-24)
[2019-07-16 06:08] LABS: Glucose,Whole Blood 146 mg/dL (75-99)
--- NOTE | 2019-07-16 06:11 | XR ---
EXAMINATION TYPE: XR chest 1V portable DATE OF EXAM: 07/16/2019 HISTORY: Tube placement. REFERENCE: Previous study dated 07/15/2019. FINDINGS: The patient is ET tube, NG tube and left internal jugular catheter remain in place, unchang ed in appearance. There continues to bibasilar airspace disease. There are small effusions which may have worsened slightly. Heart size upper limits of normal. IMPRESSION: CONTINUING BIBASILAR AIRSPACE DISEASE AND SMALL, BILATERAL EFFUSIONS.
[2019-07-16 06:15] LABS: Anisocytosis Moderate; Basophils % (A) 0 %; Eosinophils # (A) 0.1 k/uL (0-0.7); Eosinophils % (A) 1 %; HCT 24.8 % (39.0-53.0); HGB 7.9 gm/dL (13.0-17.5); Hypochromasia Marked; Lymphocytes # (A) 0.7 k/uL (1.0-4.8); Lymphocytes % (A) 6 %; MCH 37.8 pg (25.0-35.0); Macrocytosis Marked; Mean Platelet Volume 11.4; Monocytes # (A) 0.6 k/uL (0-1.0); Monocytes % (A) 5 %; Neutrophils # (A) 9.8 k/uL (1.3-7.7); Neutrophils % (A) 87 %; Platelet Count 156 k/uL (150-450); Poikilocytosis Slight; WBC 11.2 k/uL (3.8-10.6)
[2019-07-16 07:16] LABS: Calcium 7.1 mg/dL (8.4-10.2); Magnesium 2.2 mg/dL (1.6-2.3)
[2019-07-16] MEDS: IPRATROPIUM-ALBUTEROL 3 ML NEB INHALATION SCH ×4 (07:17→20:07)
[2019-07-16] MEDS: FORMOTEROL FUMARATE 20 MCG/2 ML NEBU INHALATION SCH ×2 (07:17→20:07)
[2019-07-16] MEDS: PIPERACILLIN-TAZOBACTAM 3.375 GM in SODIUM CHLORIDE 0.9% 100 ML IVPB SCH ×3 (08:05→17:55)
[2019-07-16] MEDS: AMIODARONE 200 MG TAB PO SCH ×3 (08:09→21:09)
[2019-07-16] MEDS: CHLORHEXIDINE GLUCONATE 15 ML CUP MUCOUS MEM SCH ×2 (08:16→21:09)
[2019-07-16] MEDS: PANTOPRAZOLE 40 MG/10 ML VIAL IV SCH (08:16)
--- NOTE | 2019-07-16 11:49 | P.PN ---
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 coli sepsis secondary to UTI. The patient subsequently went into hypoxic respiratory failure requiring BiPAP for respiratory support with a component of fluid overload and possible pneumonia. In addition, the patient had acute kidney injury, atrial fibrillation with rapid ventricular response. He is known to have also peripheral vascular disease. The patient was placed on BiPAP for respiratory support and he was kept in the intensive care unit. In terms of his E. coli sepsis, urine culture and the blood culture was positive and the patient is still receiving IV antibiotics and the patient is currently on IV Zosyn. He is afebrile and he is hemodynamically stable on no pressors and the patient is not requiring any pressors. In fact, the patient is on amiodarone drip at 0.5 mg per minute and addition to Cardizem at 10 mg an hour for rate control regarding his atrial fibrillation. His echocardiogram was completed on 07/05/2019 and the patient was found to have a impaired LV function with an ejection fraction of 30-35% and mildly enlarged RV with a right-sided pulmonary artery pressure is estimated to be around 46 mmHg. His renal function was also abnormal. The patient developed an acute kidney injury, admission with a crea tinine of 4.6 which gradually improved during the course of his treatment with a decline in the creatinine levels. The patient also had a anion gap metabolic acidosis with gradually recovered. Nephrology is on the case. Ultrasound the kidneys did not show any significant hydronephrosis on this patient. The chest x-ray showed left basilar consolidation right perihilar opacity consistent with multifocal atelectasis/pneumonia. He is receiving PPN for nutritional support. He does have also comorbidities including hypertension, hyperlipidemia, COPD and addition to chronic alcohol use. On today's evaluation of 07/10/2019, the patient is lethargic and weak yet awake and following commands and answering questions appropriately. He is on 3 L of oxygen by nasal cannula. He is not utilizing his BiPAP for now. He remains in atrial fibrillation. He remains on amiodarone maintenance of 0.5 mg per minute. He is on IV Zosyn. His thrombocytopenia is improving. He is receiving PPN for nutritional support. He does have severe peripheral vascular disease along with chronic arterial necrot ic ulcers in his toes bilaterally in addition to some necrotic wounds in the ankles bilaterally worse on the right. He remains afebrile. On today's evaluation of 07/11/2019 the patient is essentially same yesterday. He is lethargic. He is weak. He follows some simple commands. He seems to be appropriate however profoundly weak. He passed a swallow evaluation. Nevertheless, he is oral intake is considered to be low and the patient will be kept on PPN for nutritional support. The patient's IV medication will be switched over to oral as the patient is on amiodarone and Cardizem drip for his atrial fibrillation. Is currently on 2 L of oxygen by nasal cannula. Urine culture came back positive for E. coli. For now, the patient is on oral amiodarone regarding his atrial fibrillation 400 mg by mouth twice a day. The patient is on Toprol 25 mg twice a day. He is receiving Levemir insulin 20 units daily at bedtime. Discontinuation of the IV Solu Medrol helped his blood sugar control. Nevertheless, the patient on PPN which is obviously contributing to his blood sugar elevation. No other significant events overnight. His resting comfortably in bed. On 07/12/2019, the patient is essentially the same condition. Oral intake is minimal and he is not eating much approximately 10-20% of his tray is being utilized on a daily basis. For that reason the patient is being supplemented with TPN for nutritional support. He remains on IV Zosyn. His urine culture came back positive for E. coli. Blood culture came back positive for E. coli. He is on 40s of oxygen by nasal cannula with a pulse ox of 91%. He is awake and alert and is following commands and answering questions. Nevertheless, he remains wide lethargic and weak and he is very much laying in bed without much o f an activity. He has extensive bruising over extremities in addition to severe peripheral vascular disease with chronic ulcerations and his toes bilaterally and these are arterial ulcers are quite necrotic. Vascular surgeries on the case and no surgical interventions to be done. Renal function continues to improve in the creatinine is down to 1.7. Hemoglobin is at 9 without any significant leukocytosis. The blood sugar is under adequate control as the patient is on Lantus insulin in addition to sliding scale coverage. On 07/13/2019, the patient is still doing poorly. Laying in bed. No significant respiratory distress. Nevertheless, he seems to be quite lethargic and he drifts to sleep if left unstimulated. I was told that he worked with physical therapy. His oral intake is still low and the patient is still receiving TPN for nutritional support. The patient is completing the course of his IV Zosyn regarding E. coli sepsis and the hemodynamic parameters is improved, his blood pressure is normalized, his renal function continues to improve and his platelet count is also normalized. On today's evaluation, the skin in the lower extremity and the feet of significantly more mottled and the patient has no Doppler pulses that I was able to identify in his legs. Based on that, I recommended an immediate vascular surgery reevaluation regarding this issue. I discussed this case with Dr. Ladd. We decided to put the patient IV heparin now that his platelet count has improved. No plans for any surgical intervention. He has extensive vascular disease with chronic arterial ulcers in lower extremities bilaterally. These ulcers are dry and necrotic and nondraining. No fever. No chills. He has had no bowel movement and the patient will be given l laxative in that regard. I was able to talk to the daughter yesterday. I discussed with her his poor prognosis based on the above- mentioned comorbidities. Obviously the vascular insufficiency is a significant issue for now. He is on Levemir insulin and the dose was adjusted up to 20 units along with his vascular coverage. On 07/14/2019, no major changes in his condition and the patient is essentially the same, but he is laying down comfortably in bed, lethargic, at times confused, and sleepy. No pulses in lower extremities bilaterally and I was unable to also feel the popliteal pulses. The feet are extremely cold and ischemic with arterial necrotic wounds bilaterally. He is currently on IV heparin. Denies having any pain issues. No issues with bleeding complications. Skin is mottled and there are some areas of subcutaneous bruising in upper extremities bilaterally. He is still receiving TPN for nutritional support. Cardiac rhythm is sinus on oral amiodarone 400 mg by mouth twice a day. The patient has no hemodynamic instability. Pro-calcitonin level has dropped as the patient was treated for E. coli septicemia. Contacted the daughter. Unfortunately this is not a good situation specially the patient is quite debilitated and his oral intake is quite minimal and the patient is unable to show any signs of any clinical recovery. Furthermore, there is further ischemic changes in lower extremities bilaterally and vascular surgeon is contemplating subsequent amputation of later stage as the patient is not a candidate for any vascular interventions other than amputation for now. No clear lines of the medication lower extremities. Hemoglobin is at 7.8. On 07/15/2019, the patient is being seen in follow-up in intensive care unit. The patient's condition decompensated yesterday afternoon. The patient became progressively more lethargic and weak and tachypneic and hypoxic. He was not following any commands and he was found to be significant respiratory distress. At that point we decided to proceed with intubation and following that'll place the patient on mechanical ventilator. Note that the family was informed of these changes and intubation was cleared with the daughters. For now, the patient is an assist-control mode of ventilation at the rate of 16 with a tidal volume of 450 and FiO2 of 40% with a PEEP of 5. The patient post intubation blood gas was reviewed. There is a sitter ventilator changes were done. The patient was weaned down to 40% FiO2. Meanwhile, the chest x-ray shows no evidence of an acute pneumonia, and the blood gas showed a pH of 7.45 with a pCO2 of 34 and pO2 of 77. The morning blood gases showed a hemoglobin of 6.6 and the patient is receiving a unit of packed RBC. The patient was receiving IV heparin there was no evidence of any acute bleeding. The patient is also is requiring norepinephrine infusion for blood pressure support which is running at 0.08 g per KG per minute. He is currently sedated with propofol running at 40 g per KG per minute. IV fluids are currently at KVO and the patient is on TPN for nutritional support via PICC line. The ultimate goal is to switch this patient for enteral feeding for nutritional support now that we have an axis with a orogastric tube. The patient is afebrile. The patient is extremely poor vascular system with necrotic digits and fingers and upper extremities along with ischemic feet bilaterally with there is absent dorsalis pedis and posterior tibialis. Noted post intubation mechanical ventilation, we were able to obtain Doppler popliteal segments. Nevertheless, the mottling and the line of demarcation is forming in the lower extremities as the patient has extensive necrosis of the toes bilaterally. Family has been made aware. Vester surgeries on the case. In terms of IV access, established also a left IJ triple-lumen catheter without any major difficulties today. Antibiotic coverage with IV Zosyn which is an empiric antibiotic coverage for now. The patient is on Levemir insulin 20 units daily at bedtime along with it. Coverage. Levemir will be kept on hold for now. His cardiac rhythm is A. fib which is well- controlled and the patient remains on amiodarone orally 4 mg by mouth twice a day. I had to stop the metoprolol as the patient become hypotensive requiring pressors. On 07/16/2019, the patient remains intubated on a mechanical ventilator. Doing poorly from the vascular standpoint as the patient has necrotic fingers and necrotic toes with clearly mottling and demarcation line establishing in the right and left lower extremities with absent pulses in the feet. Cerebellar necrotic changes in the fingers of the hand bilaterally. There is some areas of skin denuding from the heel area and the right foot. Nevertheless, he remains on IV heparin. He remains sedated with propofol while being on a mechanical ventilator. He is on a very low dose of norepinephrine infusion for blood pressure support which is running at 0.03 g per KG per minute. The patient is receiving enteral feeding for nutritional support in the form of vital high protein AF at the rate of 30 mL an hour. He remains on a mechanical ventilator. Assist-control at the rate of 16 with a tidal volume of 450 and FiO2 of 40% with a PEEP of 5. He is well sedated. Easily arousable. Morphine for pain control. Levemir insulin for blood sugar control in addition to sliding scale coverage. Oral amiodarone 400 mg by mouth twice a day regarding his atrial f ibrillation. He remains in sinus although answers at times is going still into atrial fibrillation with a controlled rate. He remains on IV Zosyn. No other significant issues otherwise for now. Objective - Vital Signs Vital signs: Vital Signs Temp 98.4 F 07/16/19 09:00 Pulse 76 07/16/19 11:27 Resp 20 07/16/19 11:15 BP 109/71 07/16/19 11:15 Pulse Ox 97 07/16/19 11:15 Intake & Output 07/15/19 07/16/19 07/16/19 18:59 06:59 18:59 Intake Total 2474.117 972.256 548.685 Output Total 1558 1045 615 Balance 916.117 -72.744 -66.315 Weight 85.3 kg Intake: IV 625 220 150 0.9 Normal Saline @ 10mL/ 120 120 50 hr as KVO Magnesium Sulfate-D5w Pmx 200 1 gm In Dextrose/Water 1 100ml.bag @ 100 mls/hr IVPB Q1H RENE Rx#: [id number] Mvi, Adult No.4 with Vit 105 K 10 ml Trace (Conc-1Ml/ Dose) 1 ml In Amino Acid 4.25%-D10w+Lytes*E* 1,000 ml @ 105 mls/hr IV .BY DURATION RENE Rx#: [id number] Piperacillin-Tazobactam 3 200 100 100 .375 gm In Sodium Chloride 0.9% 100 ml @ 25 mls/hr IVPB Q8HR REEN Rx# :[id number] Intake, IV Titration 1409.117 322.256 178.685 Amount Heparin Sod,Pork in 0.45% 0 205.334 NaCl 25,000 unit In 0.45 % NaCl 1 250ml.bag @ 11.6 UNITS/KG/HR 9.999 mls/hr IV .Q24H RENE Rx#: [id number] Mvi, Adult No.4 with Vit 1021 K 10 ml Trace (Conc-1Ml/ Dose) 1 ml Sodium Chloride 2.5MEQ/ml Vial 25 meq In Amino Acid 4.25 %-D10w+Lytes*E* 1,000 ml @ 105 mls/hr IV .BY DURATION RENE Rx#: [id number] Norepinephrine 8 mg In 137.930 81.102 Sodium Chloride 0.9% 250 ml @ 0.05 MCG/KG/MIN 8. 253 mls/hr IV .Q24H RENE Rx#:[id number] Propofol 1,000 mg In 250.187 116.922 97.583 Empty Bag 1 bag @ Titrate IV .Q0M RENE Rx#: [id number] Tube Feeding 100 330 190 Blood Product 310 Rc As-1 Unit 310 [id number] Other 30 100 30 Output: Gastric Drainage 400 Urine 1158 1045 615 Other: Voiding Method Indwelling Catheter Indwelling Catheter Indwelling Catheter - Exam Gen. appearance the patient is calm and comfortable likely distress, the patient is well sedated for now. Orogastric and orotracheal tube are both in place. Head exam was generally normal. There was no scleral icterus or corneal arcus. Mucous membranes were moist. Neck was supple and without jugular venous distension, thyromegaly, or carotid bruits. Carotids were easily palpable bilaterally. There was no adenopathy. heart sounds are irregular consistent with atrial fib .Cardiac exam revealed the PMI to be normally situated and sized. The rhythm was regular and no extrasystoles were noted during several minutes of auscultation. The first and second heart sounds were normal and physiologic splitting of the second heart sound was noted. There were no murmurs, rubs, clicks, or gallops. Lungs sounds are diminished in lung bases along with coarse rhonchi and some bibasilar crackles are present. Abdominal exam revealed normal bowel sounds. The abdomen was soft, non-tender, and without masses, organomegaly, or appreciable enlargement of the abdominal aorta. Extremities the patient is known to have peripheral vascular disease and has significant ulceration in nonhealing wounds of the feet and the toes. There is significant acrocyanosis. There is also some mottling of the lower extremities. Skin reveals arterial necrotic ulcers in his toes bilaterally where several toes are necrotic and the patient has necrotic ankle wounds worse on the right lateral aspect of the ankle as well as chronic ecchymotic areas throughout his body. Pulses are absent in the feet bilaterally and the skin is mottled and the feet are extremely cold along with extensive arterial necrotic wounds in his feet and the toes bilaterally. On today's evaluation, there may be a line of demarcation forming in the feet which is an area above the ankle. However, there is some improved Doppler signal in the popliteal artery area. The fingers in the upper extremities are extremely necrotic and black. Pulses in the radial artery are present bilaterally. Neurologically the patient sedated, comfortable on propofol. The patient is in not in acute distress. - Labs CBC & Chem 7: 07/16/19 06:00 07/16/19 06:00 Labs: Abnormal Lab Results - Last 24 Hours (Table) 07/15/19 07/15/19 07/15/19 Range/Units 11:43 11:49 13:00 WBC 11.9 H (3.8-10.6) k/uL RBC 2.09 L (4.30-5.90) m/uL Hgb 8.0 L (13.0-17.5) gm/dL Hct 24.8 L (39.0-53.0) % MCV 118.5 H D (80.0-100.0) fL MCH 38.1 H (25.0-35.0) pg RDW 22.6 H (11.5-15.5) % Neutrophils # (1.3-7.7) k/uL Lymphocytes # (1.0-4.8) k/uL Macrocytosis Marked A APTT (22.0-30.0) sec ABG O2 Saturation (94-97) % Chloride (98-107) mmol/L BUN (9-20) mg/dL Creatinine (0.66-1.25) mg/dL Glucose (74-99) mg/dL POC Glucose (mg/dL) 40 L 319 H (75-99) mg/dL Calcium (8.4-10.2) mg/dL Phosphorus (2.5-4.5) mg/dL 07/15/19 07/15/19 07/15/19 Range/Units 20:30 20:30 23:47 WBC 11.7 H (3.8-10.6) k/uL RBC 2.22 L (4.30-5.90) m/uL Hgb 8.4 L (13.0-17.5) gm/dL Hct 26.2 L (39.0-53.0) % MCV 118.1 H (80.0-100.0) fL MCH 37.9 H (25.0-35.0) pg RDW 22.8 H (11.5-15.5) % Neutrophils # (1.3-7.7) k/uL Lymphocytes # (1.0-4.8) k/uL Macrocytosis Marked A APTT 44.1 H (22.0-30.0) sec ABG O2 Saturation (94-97) % Chloride (98-107) mmol/L BUN (9-20) mg/dL Creatinine (0.66-1.25) mg/dL Glucose (74-99) mg/dL POC Glucose (mg/dL) <20 L (75-99) mg/dL Calcium (8.4-10.2) mg/dL Phosphorus (2.5-4.5) mg/dL 07/15/19 07/16/19 07/16/19 Range/Units 23:49 05:14 06:00 WBC 11.2 H (3.8-10.6) k/uL RBC 2.10 L (4.30-5.90) m/uL Hgb 7.9 L (13.0-17.5) gm/dL Hct 24.8 L (39.0-53.0) % MCV 118.0 H (80.0-100.0) fL MCH 37.8 H (25.0-35.0) pg RDW 22.0 H (11.5-15.5) % Neutrophils # 9.8 H (1.3-7.7) k/uL Lymphocytes # 0.7 L (1.0-4.8) k/uL Macrocytosis Marked A APTT (22.0-30.0) sec ABG O2 Saturation 98.2 H (94-97) % Chloride (98-107) mmol/L BUN (9-20) mg/dL Creatinine (0.66-1.25) mg/dL Glucose (74-99) mg/dL POC Glucose (mg/dL) 108 H (75-99) mg/dL Calcium (8.4-10.2) mg/dL Phosphorus (2.5-4.5) mg/dL 07/16/19 07/16/19 07/16/19 Range/Units 06:00 06:00 06:05 WBC (3.8-10.6) k/uL RBC (4.30-5.90) m/uL Hgb (13.0-17.5) gm/dL Hct (39.0-53.0) % MCV (80.0-100.0) fL MCH (25.0-35.0) pg RDW (11.5-15.5) % Neutrophils # (1.3-7.7) k/uL Lymphocytes # (1.0-4.8) k/uL Macrocytosis APTT 45.7 H (22.0-30.0) sec ABG O2 Saturation (94-97) % Chloride 110 H (98-107) mmol/L BUN 49 H (9-20) mg/dL Creatinine 1.40 H (0.66-1.25) mg/dL Glucose 131 H (74-99) mg/dL POC Glucose (mg/dL) 146 H (75-99) mg/dL Calcium 7.1 L (8.4-10.2) mg/dL Phosphorus 5.0 H (2.5-4.5) mg/dL Microbiology - Last 24 Hours (Table) 07/14/19 21:30 Gram Stain - Preliminary Sputum Sputum Culture - Preliminary Assessment and Plan Plan: 1 acute hypoxic respiratory failure, currently intubated on mechanical ventilator. The patient remains intubated on a mechanical ventilator. Blood gases was noted and the patient has adequate oxygenation and ventilation. Chest x-ray shows no acute abnormalities. 3 sepsis with E. coli bacteremia secondary to an underlying UTI currently on IV Zosyn. The patient is hemodynamically stable on no pressors for now. The pro- calcitonin level has dropped and the patient was treated with IV antibiotics and post intubation the patient required to be placed back on pressors which is currently a low-dose norepinephrine infusion running at 0.03 g per KG per minute. Hemodynamically the patient is obviously improved and I'm hoping to wean him off the pressors completed today. 3 severe peripheral vascular disease, severe with chronic arterial ulcers in the lower extremities bilaterally with necrotic digits and necrotic once in the ankles with diminished pulses lower extremities bilaterally. No pulses in lower extremities. No popliteal or dorsalis pedis or posterior tibialis signals. The feet are ischemic and cold with necrotic digits and necrotic ulcers bilaterally. These are the fingers are also necrotic bilaterally although there is some radial pulses bilaterally felt in the upper extremities. No changes condition. In fact there is some extension of the demarcation line proximally in the right foot. The skin is extremely mottled. Toes remain that the necrotic and ischemic. 4 acute kidney injury possibly with an underlying chronic kidney disease, improving and the patient's creatinine is down to 1.4 5 COPD 6 chronic atrial fibrillation with rapid ventricular response currently on a combination of IV amiodarone and IV Cardizem and these medications has been switched to oral as the patient is able to take oral medication. He'll be given oral amiodarone . He remains atrial fibrillation. Rate is under better control for now. 7 diabetes mellitus currently on Levemir in addition to sliding scale coverage. 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 9 hyperlipidemia 10 hypertension history of 11 chronic history of alcoholism 12 anion gap metabolic acidosis, recovered 13 chronic anemia, stable with a hemoglobin of 7.9 14 chronic thrombocytopenia with acute drop in the platelet count, likely is consumptive secondary to sepsis, and the plated count is improving for now 15 enteral feeding for nutritional support Plan continue ventilator management and ventilator support in the necessary vent changes were done Keep the patient sedated with propofol vascular surgery follow-up regarding lower extremities and upper extremity vascular ischemic changes, The decision is either to proceed with multi-limb amputation or proceed with comfort care. The family has not made a final decision yet. Continued IV heparin Continued IV Zosyn Levemir insulin for blood sugar control in addition to sliding scale coverage Monitor renal function which is improving Monito platelet count which is improving, they're improved and we will to start IV heparin enteral feeding for nutritional support an the patient is tolerating Prognosis extremely poor. We'll continue to follow. Is a critically care evaluation was done more than 30 minutes. Time with Patient: Greater than 30
[2019-07-16 12:51] LABS: Glucose,Whole Blood 190 mg/dL (75-99)
[2019-07-16] MEDS: THIAMINE 100 MG/ML 2 ML VIAL IVP SCH (13:02)
[2019-07-16 13:43] LABS: Glucose,Whole Blood 192 mg/dL (75-99)
--- NOTE | 2019-07-16 13:50 | P.PN ---
Subjective Progress Note Date: 07/16/19 Principal diagnosis: VDRF secondary to sepsis Patient seen and examined at bedside. Patient continues to be on the vent with vasopressors. Patient does respond to commands. Peripheral arterial disease continues to progress, patient is on IV heparin. Patient's daughter is awaiting vascular surgery recommendations on Wednesday. Hemoglobin is stable at 7.9. Objective - Vital Signs Vital signs: Vital Signs Temp 98.4 F 07/16/19 09:00 Pulse 76 07/16/19 11:27 Resp 20 07/16/19 11:15 BP 109/71 07/16/19 11:15 Pulse Ox 97 07/16/19 11:15 Intake & Output 07/15/19 07/16/19 07/16/19 18:59 06:59 18:59 Intake Total 2474.117 972.256 778.685 Output Total 1558 1045 845 Balance 916.117 -72.744 -66.315 Weight 85.3 kg Intake: IV 625 220 270 0.9 Normal Saline @ 10mL/ 120 120 70 hr as KVO Magnesium Sulfate-D5w Pmx 200 1 gm In Dextrose/Water 1 100ml.bag @ 100 mls/hr IVPB Q1H RENE Rx#: [id number] Mvi, Adult No.4 with Vit 105 K 10 ml Trace (Conc-1Ml/ Dose) 1 ml In Amino Acid 4.25%-D10w+Lytes*E* 1,000 ml @ 105 mls/hr IV .BY DURATION RENE Rx#: [id number] Piperacillin-Tazobactam 3 200 100 200 .375 gm In Sodium Chloride 0.9% 100 ml @ 25 mls/hr IVPB Q8HR RENE Rx# :[id number] Intake, IV Titration 1409.117 322.256 178.685 Amount Heparin Sod,Pork in 0.45% 0 205.334 NaCl 25,000 unit In 0.45 % NaCl 1 250ml.bag @ 11.6 UNITS/KG/HR 9.999 mls/hr IV .Q24H RENE Rx#: [id number] Mvi, Adult No.4 with Vit 1021 K 10 ml Trace (Conc-1Ml/ Dose) 1 ml Sodium Chloride 2.5MEQ/ml Vial 25 meq In Amino Acid 4.25 %-D10w+Lytes*E* 1,000 ml @ 105 mls/hr IV .BY DURATION RENE Rx#: [id number] Norepinephrine 8 mg In 137.930 81.102 Sodium Chloride 0.9% 250 ml @ 0.05 MCG/KG/MIN 8. 253 mls/hr IV .Q24H RENE Rx#:[id number] Propofol 1,000 mg In 250.187 116.922 97.583 Empty Bag 1 bag @ Titrate IV .Q0M RENE Rx#: [id number] Tube Feeding 100 330 270 Blood Product 310 Rc As-1 Unit 310 [id number] Other 30 100 60 Output: Gastric Drainage 400 Urine 1158 1045 845 Other: Voiding Method Indwelling Catheter Indwelling Catheter Indwelling Catheter - Exam General: [toxic appearing], [no distress], [appears at stated age] Derm: [warm], [dry] Head: [atraumatic], [normocephalic], [symmetric] Eyes: [EOMI], [no lid lag], [anicteric sclera] Mouth: [no lip lesion], [mucus membranes moist] Cardiovascular: [S1S2 reg], [no murmur], [positive posterior tibial pulse bilateral], Lungs: [diminished bilateral], [no rhonchi, no rales] , [no accessory muscle use] tachypneic Abdominal: [soft], [ nontender to palpation], [no guarding], [no appreciable organomegaly] Ext: [mottled and ischemic lower extremities with no peripheral pulses palpated in pedal pulses Neuro: [ CN II-XI grossly intact] Psych: On vent support. Answers commands - Labs CBC & Chem 7: 07/16/19 06:00 07/16/19 06:00 Labs: Abnormal Lab Results - Last 24 Hours (Table) 07/15/19 07/15/19 07/15/19 Range/Units 20:30 20:30 23:47 WBC 11.7 H (3.8-10.6) k/uL RBC 2.22 L (4.30-5.90) m/uL Hgb 8.4 L (13.0-17.5) gm/dL Hct 26.2 L (39.0-53.0) % MCV 118.1 H (80.0-100.0) fL MCH 37.9 H (25.0-35.0) pg RDW 22.8 H (11.5-15.5) % Neutrophils # (1.3-7.7) k/uL Lymphocytes # (1.0-4.8) k/uL Macrocytosis Marked A APTT 44.1 H (22.0-30.0) sec ABG O2 Saturation (94-97) % Chloride (98-107) mmol/L BUN (9-20) mg/dL Creatinine (0.66-1.25) mg/dL Glucose (74-99) mg/dL POC Glucose (mg/dL) <20 L (75-99) mg/dL Calcium (8.4-10.2) mg/dL Phosphorus (2.5-4.5) mg/dL 07/15/19 07/16/19 07/16/19 Range/Units 23:49 05:14 06:00 WBC 11.2 H (3.8-10.6) k/uL RBC 2.10 L (4.30-5.90) m/uL Hgb 7.9 L (13.0-17.5) gm/dL Hct 24.8 L (39.0-53.0) % MCV 118.0 H (80.0-100.0) fL MCH 37.8 H (25.0-35.0) pg RDW 22.0 H (11.5-15.5) % Neutrophils # 9.8 H (1.3-7.7) k/uL Lymphocytes # 0.7 L (1.0-4.8) k/uL Macrocytosis Marked A APTT (22.0-30.0) sec ABG O2 Saturation 98.2 H (94-97) % Chloride (98-107) mmol/L BUN (9-20) mg/dL Creatinine (0.66-1.25) mg/dL Glucose (74-99) mg/dL POC Glucose (mg/dL) 108 H (75-99) mg/dL Calcium (8.4-10.2) mg/dL Phosphorus (2.5-4.5) mg/dL 07/16/19 07/16/19 07/16/19 Range/Units 06:00 06:00 06:05 WBC (3.8-10.6) k/uL RBC (4.30-5.90) m/uL Hgb (13.0-17.5) gm/dL Hct (39.0-53.0) % MCV (80.0-100.0) fL MCH (25.0-35.0) pg RDW (11.5-15.5) % Neutrophils # (1.3-7.7) k/uL Lymphocytes # (1.0-4.8) k/uL Macrocytosis APTT 45.7 H (22.0-30.0) sec ABG O2 Saturation (94-97) % Chloride 110 H (98-107) mmol/L BUN 49 H (9-20) mg/dL Creatinine 1.40 H (0.66-1.25) mg/dL Glucose 131 H (74-99) mg/dL POC Glucose (mg/dL) 146 H (75-99) mg/dL Calcium 7.1 L (8.4-10.2) mg/dL Phosphorus 5.0 H (2.5-4.5) mg/dL 07/16/19 Range/Units 12:49 WBC (3.8-10.6) k/uL RBC (4.30-5.90) m/uL Hgb (13.0-17.5) gm/dL Hct (39.0-53.0) % MCV (80.0-100.0) fL MCH (25.0-35.0) pg RDW (11.5-15.5) % Neutrophils # (1.3-7.7) k/uL Lymphocytes # (1.0-4.8) k/uL Macrocytosis APTT (22.0-30.0) sec ABG O2 Saturation (94-97) % Chloride (98-107) mmol/L BUN (9-20) mg/dL Creatinine (0.66-1.25) mg/dL Glucose (74-99) mg/dL POC Glucose (mg/dL) 190 H (75-99) mg/dL Calcium (8.4-10.2) mg/dL Phosphorus (2.5-4.5) mg/dL Microbiology - Last 24 Hours (Table) 07/14/19 21:30 Gram Stain - Preliminary Sputum Sputum Culture - Preliminary Aspergillus species Bharti albicans Assessment and Plan Assessment: Ventilator dependent Acute hypoxic respiratory failure secondary to sepsis, COPD, CHF, and possible pneumonia -IV antibiotics and breathing treatments Acute blood loss anemia -s/p 2 units of packed red blood cells -Hemoglobin stable at 7.9 Sepsis with E. coli UTI and bacteremia -continue zosyn and ID recs appreciated Severe PAD with Debility - vascular to reassess patient regarding change of status and future treatment Plans Discussed with daughter for possible CODE STATUS change on Wednesday -Acute renal failure with Left-sided hydronephrosis stable -Acute metabolic encephalopathy secondary to above -PAF amioderone and metoprolol per cardiology Steroid-induced hyperglycemia History of alcohol abuse GI and DVT prophylaxis Prognosis is guarded. CODE status to be reassessed after vascular reassessment
--- NOTE | 2019-07-16 13:52 | P.PN ---
Progress Note - Text Patient was in atrial fibrillation previously he remains in sinus rhythm now IV Amiodarone has been discontinued Oral amiodarone 400 mg twice daily Blood pressure 90 systolic pulse rate in the 70s and 80s sinus rhythm Patient is intubated We will watch for any further episodes of atrial fibrillation Reduce the dose of amiodarone to 400 mg by mouth daily after 2 weeks Will follow when necessary
--- NOTE | 2019-07-16 14:04 | P.PN ---
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 coli bacteremia and urinary tract infection. He was intubated day before yesterday because of restlessness confusion. Currently on norepinephrine drip, which is being tapered down is at 0.1 currently. He is on 40% FiO2, sedated. Vital signs are stable with mean arterial pressures in the 60s and systolic 90s , heart rate in the 70s to 80s, normal sinus rhythm. He has adequate amount of urine, last 24 hour urine is 2603 He has severe peripheral vascular disease, with gangrenous toes and fingers bluish both hands and feet. The bluish discoloration is extending in his both feet and there are some blebs now occurring Objective - Vital Signs Vital signs: Vital Signs Temp 98.1 F 07/16/19 12:00 Pulse 81 07/16/19 13:45 Resp 17 07/16/19 13:45 BP 92/57 07/16/19 13:45 Pulse Ox 97 07/16/19 13:45 Intake & Output 07/15/19 07/16/19 07/16/19 18:59 06:59 18:59 Intake Total 2474.117 972.256 780.391 Output Total 1558 1045 845 Balance 916.117 -72.744 -64.609 Weight 85.3 kg Intake: IV 625 220 270 0.9 Normal Saline @ 10mL/ 120 120 70 hr as KVO Magnesium Sulfate-D5w Pmx 200 1 gm In Dextrose/Water 1 100ml.bag @ 100 mls/hr IVPB Q1H [facility] Rx#: [id number] Mvi, Adult No.4 with Vit 105 K 10 ml Trace (Conc-1Ml/ Dose) 1 ml In Amino Acid 4.25%-D10w+Lytes*E* 1,000 ml @ 105 mls/hr IV .BY DURATION RENE Rx#: [id number] Piperacillin-Tazobactam 3 200 100 200 .375 gm In Sodium Chloride 0.9% 100 ml @ 25 mls/hr IVPB Q8HR R[facility] Rx# :[id number] Intake, IV Titration 1409.117 322.256 180.391 Amount Heparin Sod,Pork in 0.45% 0 205.334 NaCl 25,000 unit In 0.45 % NaCl 1 250ml.bag @ 11.6 UNITS/KG/HR 9.999 mls/hr IV .Q24H RENE Rx#: [id number] Mvi, Adult No.4 with Vit 1021 K 10 ml Trace (Conc-1Ml/ Dose) 1 ml Sodium Chloride 2.5MEQ/ml Vial 25 meq In Amino Acid 4.25 %-D10w+Lytes*E* 1,000 ml @ 105 mls/hr IV .BY DURATION RENE Rx#: [id number] Norepinephrine 8 mg In 137.930 81.102 Sodium Chloride 0.9% 250 ml @ 0.05 MCG/KG/MIN 8. 253 mls/hr IV .Q24H RENE Rx#:[id number] Propofol 1,000 mg In 250.187 116.922 99.289 Empty Bag 1 bag @ Titrate IV .Q0M RENE Rx#: [id number] Tube Feeding 100 330 270 Blood Product 310 Rc As-1 Unit 310 [id number] Other 30 100 60 Output: Gastric Drainage 400 Urine 1158 1045 845 Other: Voiding Method Indwelling Catheter Indwelling Catheter Indwelling Catheter On vent 40% FiO2 saline. On small doses of levo fed No facial asymmetry noted Lungs are clear to auscultation fair air entry bilaterally Heart sounds are unremarkable for any murmur rub gallop Abdomen soft Extremity exam was severe vascular compromise noted with bilateral feet showing gangrene in the toes bluish discoloration is extending up above his ankle now to the lower fourth of his legs as well as both hands are also bluish with fingertips gangrenous - Labs CBC & Chem 7: 07/16/19 06:00 07/16/19 06:00 Labs: Abnormal Lab Results - Last 24 Hours (Table) 07/15/19 07/15/19 07/15/19 Range/Units 20:30 20:30 23:47 WBC 11.7 H (3.8-10.6) k/uL RBC 2.22 L (4.30-5.90) m/uL Hgb 8.4 L (13.0-17.5) gm/dL Hct 26.2 L (39.0-53.0) % MCV 118.1 H (80.0-100.0) fL MCH 37.9 H (25.0-35.0) pg RDW 22.8 H (11.5-15.5) % Neutrophils # (1.3-7.7) k/uL Lymphocytes # (1.0-4.8) k/uL Macrocytosis Marked A APTT 44.1 H (22.0-30.0) sec ABG O2 Saturation (94-97) % Chloride (98-107) mmol/L BUN (9-20) mg/dL Creatinine (0.66-1.25) mg/dL Glucose (74-99) mg/dL POC Glucose (mg/dL) <20 L (75-99) mg/dL Calcium (8.4-10.2) mg/dL Phosphorus (2.5-4.5) mg/dL 07/15/19 07/16/19 07/16/19 Range/Units 23:49 05:14 06:00 WBC 11.2 H (3.8-10.6) k/uL RBC 2.10 L (4.30-5.90) m/uL Hgb 7.9 L (13.0-17.5) gm/dL Hct 24.8 L (39.0-53.0) % MCV 118.0 H (80.0-100.0) fL MCH 37.8 H (25.0-35.0) pg RDW 22.0 H (11.5-15.5) % Neutrophils # 9.8 H (1.3-7.7) k/uL Lymphocytes # 0.7 L (1.0-4.8) k/uL Macrocytosis Marked A APTT (22.0-30.0) sec ABG O2 Saturation 98.2 H (94-97) % Chloride (98-107) mmol/L BUN (9-20) mg/dL Creatinine (0.66-1.25) mg/dL Glucose (74-99) mg/dL POC Glucose (mg/dL) 108 H (75-99) mg/dL Calcium (8.4-10.2) mg/dL Phosphorus (2.5-4.5) mg/dL 07/16/19 07/16/19 07/16/19 Range/Units 06:00 06:00 06:05 WBC (3.8-10.6) k/uL RBC (4.30-5.90) m/uL Hgb (13.0-17.5) gm/dL Hct (39.0-53.0) % MCV (80.0-100.0) fL MCH (25.0-35.0) pg RDW (11.5-15.5) % Neutrophils # (1.3-7.7) k/uL Lymphocytes # (1.0-4.8) k/uL Macrocytosis APTT 45.7 H (22.0-30.0) sec ABG O2 Saturation (94-97) % Chloride 110 H (98-107) mmol/L BUN 49 H (9-20) mg/dL Creatinine 1.40 H (0.66-1.25) mg/dL Glucose 131 H (74-99) mg/dL POC Glucose (mg/dL) 146 H (75-99) mg/dL Calcium 7.1 L (8.4-10.2) mg/dL Phosphorus 5.0 H (2.5-4.5) mg/dL 07/16/19 07/16/19 Range/Units 12:49 13:41 WBC (3.8-10.6) k/uL RBC (4.30-5.90) m/uL Hgb (13.0-17.5) gm/dL Hct (39.0-53.0) % MCV (80.0-100.0) fL MCH (25.0-35.0) pg RDW (11.5-15.5) % Neutrophils # (1.3-7.7) k/uL Lymphocytes # (1.0-4.8) k/uL Macrocytosis APTT (22.0-30.0) sec ABG O2 Saturation (94-97) % Chloride (98-107) mmol/L BUN (9-20) mg/dL Creatinine (0.66-1.25) mg/dL Glucose (74-99) mg/dL POC Glucose (mg/dL) 190 H 192 H (75-99) mg/dL Calcium (8.4-10.2) mg/dL Phosphorus (2.5-4.5) mg/dL Microbiology - Last 24 Hours (Table) 07/14/19 21:30 Gram Stain - Preliminary Sputum Sputum Culture - Preliminary Aspergillus species Bharti albicans Assessment and Plan Assessment: Impression 1. Acute kidney injury secondary to sepsis UTI, creatinine is down to 1.4 with adequate urine output 2. Intubated day before yesterday on 07/14/2019, on 40% FiO2 . Intubated after being confused 3. On levo fed for blood pressure support, on tapering doses 4. Hypomagnesemia poor intake. Resolved. 5. Anemia with hemoglobin down currently 7.9 hemoglobin Recommendation 1. Transfuse as needed 2. Continue current medications 3. Try to discontinue the levo fed because of the gangrene as his urine output is well maintained soon as possible 4. We'll continue to follow his electrolytes urine output and renal function
--- NOTE | 2019-07-16 16:03 | PN ---
PROGRESS NOTE DATE OF SERVICE: 07/16/2019 REASON FOR FOLLOWUP: 1. E coli urinary tract infection and bacteremia. 2. Aspiration pneumonia. INTERVAL HISTORY: The patient is currently afebrile. The patient remains to be intubated on the vent. FiO2 is currently 40%. The patient is currently off the Levophed. No significant purulent secretions through the ET or any other changes reported by nursing staff. EXAMINATION: Blood pressure 92/67, pulse of 81. Temperature is 98.1. He is 99% on 40% FiO2. General description is an elderly male lying in bed in no distress. Respiratory system: Unlabored breathing, clear to auscultation anteriorly. Heart S1, S2. Regular rate and rhythm. Abdomen soft, no tenderness. Extremities: No edema of the feet. The patient did have significant ischemic changes to foot and hand area. LABS: Hemoglobin 7.8, white count 11.9, BUN of 49, creatinine 1.40. DIAGNOSTIC IMPRESSION AND PLAN: Patient with E coli bacteremia secondary to urinary source with repeat blood culture has been negative so far component of aspiration pneumonia and respiratory failure currently on the vent. The patient covered with Zosyn to continue with overall poor prognosis, hospice may be the best option. Continue supportive care. MMODL / IJN: [id number] /
[2019-07-16 18:10] LABS: Glucose,Whole Blood 170 mg/dL (75-99)
[2019-07-16] MEDS: NOREPINEPHRINE 8 MG in SODIUM CHLORIDE 0.9% 250 ML IV SCH (18:42)
[2019-07-16] MEDS: INSULIN DETEMIR (LEVEMIR) 100 UNIT/ML SYR SQ SCH (21:09)
[2019-07-17] MEDS: THIAMINE 100 MG/ML 2 ML VIAL IVP SCH ×3 (00:04→23:14)
[2019-07-17] MEDS: HEPARIN SOD,PORK IN 0.45% NACL 25,000 UNIT in 0.45% NACL 1 250ML.BAG IV SCH ×2 (00:05→16:47)
[2019-07-17 00:25] LABS: Glucose,Whole Blood 172 mg/dL (75-99)
[2019-07-17] MEDS: INSULIN ASPART (NovoLOG) 100 UNIT/ML VIAL SQ SCH ×5 (00:29→23:11)
[2019-07-17] MEDS: PROPOFOL 1,000 MG in EMPTY BAG 1 BAG IV SCH ×6 (01:13→22:00)
[2019-07-17 04:45] LABS: Anisocytosis Moderate; HCT 23.3 % (39.0-53.0); HGB 7.3 gm/dL (13.0-17.5); Hypochromasia Marked; MCH 37.4 pg (25.0-35.0); MCHC 31.3 g/dL (31.0-37.0); MCV 119.6 fL (80.0-100.0); Mean Platelet Volume 11.5; Platelet Count 158 k/uL (150-450); RBC 1.95 m/uL (4.30-5.90); RDW 21.6 % (11.5-15.5); WBC 10.4 k/uL (3.8-10.6)
[2019-07-17 04:49] LABS: Macrocytosis Marked
[2019-07-17 05:26] LABS: ABG Base Excess -1.2 mmol/L; ABG HCO3 23 mmol/L (21-25); ABG Oxygen Saturation 98.5 % (94-97); ABG PCO2 36 mmHg (35-45); ABG PH 7.42 (7.35-7.45); ABG PO2 108 mmHg (83-108); ABG TCO2 24 mmol/L (19-24); Allen Test Performed? Yes
[2019-07-17 05:37] LABS: Calcium 7.2 mg/dL (8.4-10.2); Potassium 4.6 mmol/L (3.5-5.1); Total Bilirubin 0.5 mg/dL (0.2-1.3); Total Protein 4.5 g/dL (6.3-8.2)
[2019-07-17 05:46] LABS: Glucose,Whole Blood 143 mg/dL (75-99)
--- NOTE | 2019-07-17 07:32 | XR ---
EXAMINATION TYPE: XR chest 1V portable DATE OF EXAM: 07/17/2019 COMPARISON: 07/16/2019 HISTORY: Ventilatory dependent respiratory failure. TECHNIQUE: Single frontal view of the chest is obtained. FINDINGS: Mild right hemidiaphragm elevation. Similar trace bilateral pleural effusions and minimal bibasilar airspace disease. Overall low lung volumes. Right-sided PICC, endotracheal tube, enteric tu be and left-sided internal jugular approach central venous catheter are stable. [id number] dege nerative change of the spine. Cardiomediastinal silhouette is enlarged and stable. Old healed left ri b fractures. IMPRESSION: Stable exam from the prior with trace bilateral pleural effusions and minimal bibasilar airspace disease, possible atelectasis.
[2019-07-17] MEDS: IPRATROPIUM-ALBUTEROL 3 ML NEB INHALATION SCH ×4 (08:18→20:11)
[2019-07-17] MEDS: FORMOTEROL FUMARATE 20 MCG/2 ML NEBU INHALATION SCH ×2 (08:18→20:11)
[2019-07-17] MEDS: PIPERACILLIN-TAZOBACTAM 3.375 GM in SODIUM CHLORIDE 0.9% 100 ML IVPB SCH ×3 (08:30→23:14)
--- NOTE | 2019-07-17 09:31 | P.PN ---
Subjective Patient is seen in follow for acute kidney injury. Renal function is stable. Nonoliguric. Off vasopressors. Receiving tube feeding. Remains intubated. Vital signs are stable. General: The patient appeared well nourished and normally developed. HEENT: Head exam is unremarkable. Intubated. LUNGS: Breath sounds decreased. HEART: Rate and Rhythm are regular. ABDOMEN: Soft. EXTREMITITES: Trace edema. Gangrenous changes noted. Objective - Vital Signs Vital signs: Vital Signs Temp 98.0 F 07/17/19 08:00 Pulse 80 07/17/19 09:00 Resp 17 07/17/19 09:00 BP 91/60 07/17/19 09:00 Pulse Ox 100 07/17/19 09:00 Intake & Output 07/16/19 07/17/19 07/17/19 18:59 06:59 18:59 Intake Total 5388.637 0275.092 310.810 Output Total 1215 940 125 Balance 60.408 422.092 185.810 Weight 85.2 kg 87.6 kg Intake: IV 420 120 120 0.9 Normal Saline @ 10mL/ 120 120 20 hr as KVO Piperacillin-Tazobactam 3 300 100 .375 gm In Sodium Chloride 0.9% 100 ml @ 25 mls/hr IVPB Q8HR RENE Rx# :[id number] Intake, IV Titration 284.408 528.092 58.810 Amount Heparin Sod,Pork in 0.45% 250 NaCl 25,000 unit In 0.45 % NaCl 1 250ml.bag @ 11.6 UNITS/KG/HR 9.999 mls/hr IV .Q24H RENE Rx#: [id number] Norepinephrine 8 mg In 86.825 Sodium Chloride 0.9% 250 ml @ 0.05 MCG/KG/MIN 8. 253 mls/hr IV .Q24H RENE Rx#:[id number] Propofol 1,000 mg In 197.583 278.092 58.810 Empty Bag 1 bag @ Titrate IV .Q0M RENE Rx#: [id number] Tube Feeding 481 714 102 Other 90 30 Output: Urine 1215 940 125 Other: Voiding Method Indwelling Catheter Indwelling Catheter - Labs CBC & Chem 7: 07/17/19 04:25 07/17/19 04:25 Labs: Abnormal Lab Results - Last 24 Hours (Table) 07/16/19 07/16/19 07/16/19 Range/Units 12:49 13:41 18:07 RBC (4.30-5.90) m/uL Hgb (13.0-17.5) gm/dL Hct (39.0-53.0) % MCV (80.0-100.0) fL MCH (25.0-35.0) pg RDW (11.5-15.5) % Macrocytosis APTT (22.0-30.0) sec ABG O2 Saturation (94-97) % Chloride (98-107) mmol/L BUN (9-20) mg/dL Creatinine (0.66-1.25) mg/dL Glucose (74-99) mg/dL POC Glucose (mg/dL) 190 H 192 H 170 H (75-99) mg/dL Calcium (8.4-10.2) mg/dL Total Protein (6.3-8.2) g/dL Albumin (3.5-5.0) g/dL 07/17/19 07/17/19 07/17/19 Range/Units 00:20 04:25 04:25 RBC 1.95 L (4.30-5.90) m/uL Hgb 7.3 L (13.0-17.5) gm/dL Hct 23.3 L (39.0-53.0) % MCV 119.6 H (80.0-100.0) fL MCH 37.4 H (25.0-35.0) pg RDW 21.6 H (11.5-15.5) % Macrocytosis Marked A APTT 42.9 H (22.0-30.0) sec ABG O2 Saturation (94-97) % Chloride (98-107) mmol/L BUN (9-20) mg/dL Creatinine (0.66-1.25) mg/dL Glucose (74-99) mg/dL POC Glucose (mg/dL) 172 H (75-99) mg/dL Calcium (8.4-10.2) mg/dL Total Protein (6.3-8.2) g/dL Albumin (3.5-5.0) g/dL 07/17/19 07/17/19 07/17/19 Range/Units 04:25 05:23 05:42 RBC (4.30-5.90) m/uL Hgb (13.0-17.5) gm/dL Hct (39.0-53.0) % MCV (80.0-100.0) fL MCH (25.0-35.0) pg RDW (11.5-15.5) % Macrocytosis APTT (22.0-30.0) sec ABG O2 Saturation 98.5 H (94-97) % Chloride 110 H (98-107) mmol/L BUN 42 H (9-20) mg/dL Creatinine 1.47 H (0.66-1.25) mg/dL Glucose 114 H (74-99) mg/dL POC Glucose (mg/dL) 143 H (75-99) mg/dL Calcium 7.2 L (8.4-10.2) mg/dL Total Protein 4.5 L (6.3-8.2) g/dL Albumin 2.0 L (3.5-5.0) g/dL Microbiology - Last 24 Hours (Table) 07/14/19 21:30 Gram Stain - Final Sputum Sputum Culture - Final Aspergillus fumigatus Bharti albicans 07/14/19 12:20 Gram Stain - Final Elbow - Right Wound Culture - Final Assessment and Plan Plan: Assessment: 1. Acute kidney injury secondary to ATN secondary to sepsis and hemodynamic instability. Renal function stable. 2. E. coli UTI and bacteremia maintain on antibiotics. Infectious disease following. 3. A. fib with RVR on admission. Maintained on oral amiodarone. 4. Bilateral toe gangrene. Vascular surgery following. Currently on heparin drip. Plan: Maintain tube feeding. No changes from nephrology standpoint. Overall prognosis guarded.
[2019-07-17] MEDS: CHLORHEXIDINE GLUCONATE 15 ML CUP MUCOUS MEM SCH ×2 (09:58→20:30)
[2019-07-17] MEDS: AMIODARONE 200 MG TAB PO SCH ×2 (09:59→20:30)
[2019-07-17] MEDS: PANTOPRAZOLE 40 MG/10 ML VIAL IV SCH (09:59)
[2019-07-17] MEDS: HEPARIN SODIUM,PORCINE 5,000 UNIT/ML 1 ML VIAL IV PRN (10:10)
[2019-07-17 12:20] LABS: Glucose,Whole Blood 140 mg/dL (75-99)
--- NOTE | 2019-07-17 13:32 | P.PN ---
Subjective Progress Note Date: 07/17/19 Principal diagnosis: Acute hypoxic respiratory failure, E. coli sepsis, septic shock and bacteremia with underlying urinary tract infection. 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 coli sepsis secondary to UTI. The patient subsequently went into hypoxic respiratory failure requiring BiPAP for respiratory support with a component of fluid overload and possible pneumonia. In addition, the patient had acute kidney injury, atrial fibrillation with rapid ventricular response. He is known to have also peripheral vascular disease. The patient was placed on BiPAP for respiratory support and he was kept in the intensive care unit. In terms of his E. coli sepsis, urine culture and the blood culture was positive and the patient is still receiving IV antibiotics and the patient is currently on IV Zosyn. He is afebrile and he is hemodynamically stable on no pressors and the patient is not requiring any pressors. In fact, the patient is on amiodarone drip at 0.5 mg per minute and addition to Cardizem at 10 mg an hour for rate control regarding his atrial fibrillation. His echocardiogram was completed on 07/05/2019 and the patient was found to have a impaired LV function with an ejection fraction of 30-35% and mildly enlarged RV with a right-sided pulmonary artery pressure is estimated to be around 46 mmHg. His renal function was also abnormal. The patient developed an acute kidney injury, admission with a creatinine of 4.6 which gradually improved during the course of his treatment with a decline in the creatinine levels. The patient also had a anion gap metabolic acidosis with gradually recovered. Nephrology is on the case. Ultrasound the kidneys did not show any significant hydronephrosis on this patient. The chest x-ray showed left basilar consolidation right perihilar opacity consistent with multifocal atelectasis/pneumonia. He is receiving PPN for nutritional support. He does have also comorbidities including hypertension , hyperlipidemia, COPD and addition to chronic alcohol use. On today's evaluation of 07/10/2019, the patient is lethargic and weak yet awake and following commands and answering questions appropriately. He is on 3 L of oxygen by nasal cannula. He is not utilizing his BiPAP for now. He remains in atrial fibrillation. He remains on amiodarone maintenance of 0.5 mg per minute. He is on IV Zosyn. His thrombocytopenia is improving. He is receiving PPN for nutritional support. He does have severe peripheral vascular disease along with chronic arterial necrotic ulcers in his toes bilaterally in addition to some necrotic wounds in the ankles bilaterally worse on the right. He remains afebr ile. On today's evaluation of 07/11/2019 the patient is essentially same yesterday. He is lethargic. He is weak. He follows some simple commands. He seems to be appropriate however profoundly weak. He passed a swallow evaluation. Nevertheless, he is oral intake is considered to be low and the patient will be kept on PPN for nutritional support. The patient's IV medication will be switched over to oral as the patient is on amiodarone and Cardizem drip for his atrial fibrillation. Is currently on 2 L of oxygen by nasal cannula. Urine culture came back positive for E. coli. For now, the patient is on oral amiodarone regarding his atrial fibrillation 400 mg by mouth twice a day. The patient is on Toprol 25 mg twice a day. He is receiving Levemir insulin 20 units daily at bedtime. Discontinuation of the IV Solu Medrol helped his blood sugar control. Nevertheless, the patient on PPN which is obviously contributing to his blood sugar elevation. No other significant events overnight. His resting comfortably in bed. On 07/12/2019, the patient is essentially the same condition. Oral intake is minimal and he is not eating much approximately 10-20% of his tray is being utilized on a daily basis. For that reason the patient is being supplemented with TPN for nutritional support. He remains on IV Zosyn. His urine culture came back positive for E. coli. Blood culture came back positive for E. coli. He is on 40s of oxygen by nasal cannula with a pulse ox of 91%. He is awake and alert and is following commands and answering questions. Nevertheless, he remains wide lethargic and weak and he is very much laying in bed without much of an activity. He has extensive bruising over extremities in addition to severe peripheral vascular disease with chronic ulcerations and his toes bilaterally and these are arterial ulcers are quite necrotic. Vascular surgeries on the case and no surgical interventions to be done. Renal function continues to improve in the creatinine is down to 1.7. Hemoglobin is at 9 without any significant leukocytosis. The blood sugar is under adequate control as the patient is on Lantus insulin in addition to sliding scale coverage. On 07/13/2019, the patient is still doing poorly. Laying in bed. No significant respiratory distress. Nevertheless, he seems to be quite lethargic and he drifts to sleep if left unstimulated. I was told that he worked with physical therapy. His oral intake is still low and the patient is still re ceiving TPN for nutritional support. The patient is completing the course of his IV Zosyn regarding E. coli sepsis and the hemodynamic parameters is improved, his blood pressure is normalized, his renal function continues to improve and his platelet count is also normalized. On today's evaluation, the skin in the lower extremity and the feet of significantly more mottled and the patient has no Doppler pulses that I was able to identify in his legs. Based on that, I recommended an immediate vascular surgery reevaluation regarding this issue. I discussed this case with Dr. Ladd. We decided to put the patient IV heparin now that his platelet count has improved. No plans for any surgical intervention. He has extensive vascular disease with chronic arterial ulcers in lower extremities bilaterally. These ulcers are dry and necrotic and nondraining. No fever. No chills. He has had no bowel movement and the patient will be given l laxative in that regard. I was able to talk to the daughter yesterday. I discussed with her his poor prognosis based on the above- mentioned comorbidities. Obviously the vascular insufficiency is a significant issue for now. He is on Levemir insulin and the dose was adjusted up to 20 units along with his vascular coverage. On 07/14/2019, no major changes in his condition and the patient is essentially the same, but he is laying down comfortably in bed, lethargic, at times confused, and sleepy. No pulses in lower extremities bilaterally and I was unable to also feel the popliteal pulses. The feet are extremely cold and ischemic with arterial necrotic wounds bilaterally. He is currently on IV heparin. Denies having any pain issues. No issues with bleeding complications. Skin is mottled and there are some areas of subcutaneous bruising in upper extremities bilaterally. He is still receiving TPN for nutritional support. Cardiac rhythm is sinus on oral amiodarone 400 mg by mouth twice a day. The patient has no hemodynamic instability. Pro-calcitonin level has dropped as the patient was treated for E. coli septicemia. Contacted the daughter. Unfortunately this is not a good situation specially the patient is quite debilitated and his oral intake is quite minimal and the patient is unable to show any signs of any clinical recovery. Furthermore, there is further ischemic changes in lower extremities bilaterally and vascular surgeon is contemplating subsequent amputation of later stage as the patient is not a candidate for any vascular interventions other than amputation for now. No clear lines of the medication lower extremities. Hemoglobin is at 7.8. On 07/15/2019, the patient is being seen in follow-up in intensive care unit. The patient's condition decompensated yesterday afternoon. The patient became progressively more lethargic and weak and tachypneic and hypoxic. He was not following any commands and he was found to be significant respiratory distress. At that point we decided to proceed with intubation and following that'll place the patient on mechanical ventilator. Note that the family was informed of these changes and intubation was cleared with the daughters. For now, the patient is an assist-control mode of ventilation at the rate of 16 with a tidal volume of 450 and FiO2 of 40% with a PEEP of 5. The patient post intubation blood gas was reviewed. There is a sitter ventilator changes were done. The patient was weaned down to 40% FiO2. Meanwhile, the chest x-ray shows no evid ence of an acute pneumonia, and the blood gas showed a pH of 7.45 with a pCO2 of 34 and pO2 of 77. The morning blood gases showed a hemoglobin of 6.6 and the patient is receiving a unit of packed RBC. The patient was receiving IV heparin there was no evidence of any acute bleeding. The patient is also is requiring norepinephrine infusion for blood pressure support which is running at 0.08 g per KG per minute. He is currently sedated with propofol running at 40 g per KG per minute. IV fluids are currently at KVO and the patient is on TPN for nutritional support via PICC line. The ultimate goal is to switch this patient for enteral feeding for nutritional support now that we have an axis with a orogastric tube. The patient is afebrile. The patient is extremely poor vascular system with necrotic digits and fingers and upper extremities along with ischemic feet bilaterally with there is absent dorsalis pedis and posterior tibialis. Noted post intubation mechanical ventilation, we were able to obtain Doppler popliteal segments. Nevertheless, the mottling and the line of demarc ation is forming in the lower extremities as the patient has extensive necrosis of the toes bilaterally. Family has been made aware. Vester surgeries on the case. In terms of IV access, established also a left IJ triple-lumen catheter without any major difficulties today. Antibiotic coverage with IV Zosyn which is an empiric antibiotic coverage for now. The patient is on Levemir insulin 20 units daily at bedtime along with it. Coverage. Levemir will be kept on hold for now. His cardiac rhythm is A. fib which is well-controlled and the patient remains on amiodarone orally 4 mg by mouth twice a day. I had to stop the metoprolol as the patient become hypotensive requiring pressors. On 07/16/2019, the patient remains intubated on a mechanical ventilator. Doing poorly from the vascular standpoint as the patient has necrotic fingers and necrotic toes with clearly mottling and demarcation line establishing in the right and left lower extremities with absent pulses in the feet. Cerebellar necrotic changes in the fingers of the hand bilaterally. There is some areas of skin denuding from the heel area and the right foot. Nevertheless, he remains on IV heparin. He remains sedated with propofol while being on a mechanical ventilator. He is on a very low dose of norepinephrine infusion for blood pressure support which is running at 0.03 g per KG per minute. The patient is receiving enteral feeding for nutritional support in the form of vital high protein AF at the rate of 30 mL an hour. He remains on a mechanical ventilator. Assist-control at the rate of 16 with a tidal volume of 450 and FiO2 of 40% with a PEEP of 5. He is well sedated. Easily arousable. Morphine for pain control. Levemir insulin for blood sugar control in addition to sliding scale coverage. Oral amiodarone 400 mg by mouth twice a day regarding his atrial fibrillation. He remains in sinus although answers at times is going still into atrial fibrillation with a controlled rate. He remains on IV Zosyn. No other significant issues otherwise for now. Patient was reevaluated today on, remains in the ICU, intubated and mechanically ventilated. He is on assist control rate of 16 tidal volume is 450 FiO2 is 40% and PEEP is 5. Remains on propofol at 20 mcg/kg/m, IV fluid is at K VO, off pressors, patient is being followed by many consultants including infectious disease, nephrology, vascular surgery, and according to the nurses, his daughter is planning to discuss his vascular issues with the vascular surgeon on Wednesday/tomorrow, and we will have to make a decision regarding amputations or possibly proceed to comfort care measures which is the measure I will strongly recommend instead of amputations. ABG today showed a pO2 of 108 pCO2 of 36 pH of 7.42. Hemoglobin is 7.3 WBC count is 10.4. Electrolytes are normal BUN is 42 and creatinine is 1.47 which is about the same over the last few days. Chest x-ray showed trace of bilateral pleural effusions and minimal bibasilar atelectasis. Objective - Vital Signs Vital signs: Vital Signs Temp 98.0 F 07/17/19 08:00 Pulse 81 07/17/19 12:28 Resp 18 07/17/19 12:00 BP 95/65 07/17/19 12:00 Pulse Ox 99 07/17/19 12:00 Intake & Output 07/16/19 07/17/19 07/17/19 18:59 06:59 18:59 Intake Total 9102.002 9540.092 771.236 Output Total 1215 940 385 Balance 60.408 422.092 386.236 Weight 85.2 kg 87.6 kg Intake: IV 420 120 160 0.9 Normal Saline @ 10mL/ 120 120 60 hr as KVO Piperacillin-Tazobactam 3 300 100 .375 gm In Sodium Chloride 0.9% 100 ml @ 25 mls/hr IVPB Q8HR [facility] Rx# :[id number] Intake, IV Titration 284.408 528.092 245.236 Amount Heparin Sod,Pork in 0.45% 250 145.236 NaCl 25,000 unit In 0.45 % NaCl 1 250ml.bag @ 11.6 UNITS/KG/HR 9.999 mls/hr IV .Q24H [facility] Rx#: [id number] Norepinephrine 8 mg In 86.825 Sodium Chloride 0.9% 250 ml @ 0.05 MCG/KG/MIN 8. 253 mls/hr IV .Q24H [facility]ENE Rx#:[id number] Propofol 1,000 mg In 197.583 278.092 100.000 Empty Bag 1 bag @ Titrate IV .Q0M RENE Rx#: [id number] Tube Feeding 481 714 306 Other 90 60 Output: Urine 1215 940 385 Other: Voiding Method Indwelling Catheter Indwelling Catheter Indwelling Catheter # Bowel Movements 1 - Exam Physical Exam: Revealed a 73-year-old white male on mechanical ventilation, sedated. Head: Atraumatic, normocephalic. HEENT:[Neck is supple.] [No neck masses.] [No thyromegaly.] [No JVD.] PERRLA, EOMI, no icterus. Endotracheal tube and orogastric tube are intact. Chest: [Diminished breath sounds at the bases with coarse crackles and rhonchi bilaterally. Symmetrical chest expansion. Cardiac Exam: Irregular irregular rhythm, no S3 gallop. No murmur. Abdomen: [Soft, nontender, no megaly, no rebound, no guarding, normal bowel sounds.] Extremities: There is significant acrocyanosis. There is also some mottling of the lower extremities. Skin reveals arterial necrotic ulcers in his toes bilaterally where several toes are necrotic and the patient has necrotic ankle wounds worse on the right lateral aspect of the ankle as well as chronic ecchymotic areas throughout his body. Pulses are absent in the feet bilaterally and the skin is mottled and the feet are extremely cold along with extensive arterial necrotic wounds in his feet and the toes bilaterally. On today's evaluation, there may be a line of demarcation forming in the feet which is an area above the ankle. Neurological Exam: Could not be assessed, patient is sedated and intubated. Psychiatric: Could not be assessed. Patient is on propofol drip. Skin: As noted above under extremities. - Labs CBC & Chem 7: 07/17/19 04:25 07/17/19 04:25 Labs: Abnormal Lab Results - Last 24 Hours (Table) 07/16/19 07/16/19 07/17/19 Range/Units 13:41 18:07 00:20 RBC (4.30-5.90) m/uL Hgb (13.0-17.5) gm/dL Hct (39.0-53.0) % MCV (80.0-100.0) fL MCH (25.0-35.0) pg RDW (11.5-15.5) % Macrocytosis APTT (22.0-30.0) sec ABG O2 Saturation (94-97) % Chloride (98-107) mmol/L BUN (9-20) mg/dL Creatinine (0.66-1.25) mg/dL Glucose (74-99) mg/dL POC Glucose (mg/dL) 192 H 170 H 172 H (75-99) mg/dL Calcium (8.4-10.2) mg/dL Total Protein (6.3-8.2) g/dL Albumin (3.5-5.0) g/dL 07/17/19 07/17/19 07/17/19 Range/Units 04:25 04:25 04:25 RBC 1.95 L (4.30-5.90) m/uL Hgb 7.3 L (13.0-17.5) gm/dL Hct 23.3 L (39.0-53.0) % MCV 119.6 H (80.0-100.0) fL MCH 37.4 H (25.0-35.0) pg RDW 21.6 H (11.5-15.5) % Macrocytosis Marked A APTT 42.9 H (22.0-30.0) sec ABG O2 Saturation (94-97) % Chloride 110 H (98-107) mmol/L BUN 42 H (9-20) mg/dL Creatinine 1.47 H (0.66-1.25) mg/dL Glucose 114 H (74-99) mg/dL POC Glucose (mg/dL) (75-99) mg/dL Calcium 7.2 L (8.4-10.2) mg/dL Total Protein 4.5 L (6.3-8.2) g/dL Albumin 2.0 L (3.5-5.0) g/dL 07/17/19 07/17/19 07/17/19 Range/Units 05:23 05:42 12:17 RBC (4.30-5.90) m/uL Hgb (13.0-17.5) gm/dL Hct (39.0-53.0) % MCV (80.0-100.0) fL MCH (25.0-35.0) pg RDW (11.5-15.5) % Macrocytosis APTT (22.0-30.0) sec ABG O2 Saturation 98.5 H (94-97) % Chloride (98-107) mmol/L BUN (9-20) mg/dL Creatinine (0.66-1.25) mg/dL Glucose (74-99) mg/dL POC Glucose (mg/dL) 143 H 140 H (75-99) mg/dL Calcium (8.4-10.2) mg/dL Total Protein (6.3-8.2) g/dL Albumin (3.5-5.0) g/dL Microbiology - Last 24 Hours (Table) 07/14/19 21:30 Gram Stain - Final Sputum Sputum Culture - Final Aspergillus fumigatus Bharti albicans 07/14/19 12:20 Gram Stain - Final Elbow - Right Wound Culture - Final Assessment and Plan Assessment: Impression: Acute hypoxic respiratory failure requiring intubation and mechanical ventilation. E. coli sepsis bacteremia and septic shock. Patient is now off norepinephrine. Hemodynamically stable today. Severe peripheral vessel occlusive disease, Acute kidney injury Severe COPD. Chronic atrial fibrillation. Type 2 diabetes. 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 Dyslipidemia Hypertension. Anion gap metabolic acidosis secondary to sepsis and septic shock. Chronic anemia Recommendation: Continue ventilatory support. Continue hemodynamic support if needed. Continue propofol. Continue antibiotics as per ID on the case. Continue Levemir insulin and sliding scale coverage. Continue to monitor renal profile. Continue GI and DVT prophylaxis. Continued to manage the patient with many other consultants including vascular surgery, my understanding is that his daughter was to discuss his condition with vascular surgery and decide whether to proceed with amputations/multiple or proceed to comfort care measures. At this point I would strongly recommend comfort care measures and let patient pass with comfort and dignity. Critical care time is 40 minutes. Time with Patient: Greater than 30
--- NOTE | 2019-07-17 13:41 | P.PN ---
Subjective Progress Note Date: 07/17/19 Principal diagnosis: Altered mental status Patient was seen and examined. No acute events overnight. Patient currently being treated for E. coli UTI sepsis with hydronephrosis. Also has respiratory failure secondary to CHF, COPD and possible pneumonia. He was reintubated on 07/15/2019 for worsening respiratory status. Also in A. fib with RVR currently rate controlled on oral medications. Has history of PAD with necrotic lower extremity wounds, on heparin drip for possible microthrombi. Patient was seen and examined. He continues to be on the ventilator. Discussed with RN, future discussion between daughter and Dr. Ayala to be held regarding CODE STATUS. Hemoglobin this morning is 7.3 from 7.9. ABG shows pH 7.42, pCO2 of 36. Bicarbonate is 23. CMP showing BUN of 42 and creatinine of 1.47. Chest x-ray this morning shows stable exam with trace bilateral effusions and minimal by basilar airspace disease. Objective - Vital Signs Vital signs: Vital Signs Temp 98.0 F 07/17/19 08:00 Pulse 81 07/17/19 12:28 Resp 18 07/17/19 12:00 BP 95/65 07/17/19 12:00 Pulse Ox 99 07/17/19 12:00 Intake & Output 07/16/19 07/17/19 07/17/19 18:59 06:59 18:59 Intake Total 1220.430 9444.092 771.236 Output Total 1215 940 385 Balance 60.408 422.092 386.236 Weight 85.2 kg 87.6 kg Intake: IV 420 120 160 0.9 Normal Saline @ 10mL/ 120 120 60 hr as KVO Piperacillin-Tazobactam 3 300 100 .375 gm In Sodium Chloride 0.9% 100 ml @ 25 mls/hr IVPB Q8HR RENE Rx# :[id number] Intake, IV Titration 284.408 528.092 245.236 Amount Heparin Sod,Pork in 0.45% 250 145.236 NaCl 25,000 unit In 0.45 % NaCl 1 250ml.bag @ 11.6 UNITS/KG/HR 9.999 mls/hr IV .Q24H RENE Rx#: [id number] Norepinephrine 8 mg In 86.825 Sodium Chloride 0.9% 250 ml @ 0.05 MCG/KG/MIN 8. 253 mls/hr IV .Q24H RENE Rx#:[id number] Propofol 1,000 mg In 197.583 278.092 100.000 Empty Bag 1 bag @ Titrate IV .Q0M RENE Rx#: [id number] Tube Feeding 481 714 306 Other 90 60 Output: Urine 1215 940 385 Other: Voiding Method Indwelling Catheter Indwelling Catheter Indwelling Catheter # Bowel Movements 1 - Exam General: [Appears toxic older than stated age], [intubated on ventilator], [appears at stated age] Derm: [warm], [dry] Head: [atraumatic], [normocephalic], [symmetric] Eyes: [EOMI], [no lid lag], [anicteric sclera] Mouth: [no lip lesion], [mucus membranes moist] Cardiovascular: [S1S2 regular], [no murmur], [unable to palpate DP or PT pulses in either extremities], Lungs: [Coarse breath sounds bilateral], [no rhonchi, no rales] , [no accessory muscle use] Abdominal: [soft], [ nontender to palpation], [nondistended], [no appreciable organomegaly] Ext: [no gross muscle atrophy], [no edema], [necrotic, ulcerated wounds in bilateral feet and toes with worsening erythema], [scattered ecchymosis in all 4 extremities] Neuro: [Unable to determine] Psych: [Unable to determine] - Labs CBC & Chem 7: 07/17/19 04:25 07/17/19 04:25 Labs: Abnormal Lab Results - Last 24 Hours (Table) 07/16/19 07/16/19 07/17/19 Range/Units 13:41 18:07 00:20 RBC (4.30-5.90) m/uL Hgb (13.0-17.5) gm/dL Hct (39.0-53.0) % MCV (80.0-100.0) fL MCH (25.0-35.0) pg RDW (11.5-15.5) % Macrocytosis APTT (22.0-30.0) sec ABG O2 Saturation (94-97) % Chloride (98-107) mmol/L BUN (9-20) mg/dL Creatinine (0.66-1.25) mg/dL Glucose (74-99) mg/dL POC Glucose (mg/dL) 192 H 170 H 172 H (75-99) mg/dL Calcium (8.4-10.2) mg/dL Total Protein (6.3-8.2) g/dL Albumin (3.5-5.0) g/dL 07/17/19 07/17/19 07/17/19 Range/Units 04:25 04:25 04:25 RBC 1.95 L (4.30-5.90) m/uL Hgb 7.3 L (13.0-17.5) gm/dL Hct 23.3 L (39.0-53.0) % MCV 119.6 H (80.0-100.0) fL MCH 37.4 H (25.0-35.0) pg RDW 21.6 H (11.5-15.5) % Macrocytosis Marked A APTT 42.9 H (22.0-30.0) sec ABG O2 Saturation (94-97) % Chloride 110 H (98-107) mmol/L BUN 42 H (9-20) mg/dL Creatinine 1.47 H (0.66-1.25) mg/dL Glucose 114 H (74-99) mg/dL POC Glucose (mg/dL) (75-99) mg/dL Calcium 7.2 L (8.4-10.2) mg/dL Total Protein 4.5 L (6.3-8.2) g/dL Albumin 2.0 L (3.5-5.0) g/dL 07/17/19 07/17/19 07/17/19 Range/Units 05:23 05:42 12:17 RBC (4.30-5.90) m/uL Hgb (13.0-17.5) gm/dL Hct (39.0-53.0) % MCV (80.0-100.0) fL MCH (25.0-35.0) pg RDW (11.5-15.5) % Macrocytosis APTT (22.0-30.0) sec ABG O2 Saturation 98.5 H (94-97) % Chloride (98-107) mmol/L BUN (9-20) mg/dL Creatinine (0.66-1.25) mg/dL Glucose (74-99) mg/dL POC Glucose (mg/dL) 143 H 140 H (75-99) mg/dL Calcium (8.4-10.2) mg/dL Total Protein (6.3-8.2) g/dL Albumin (3.5-5.0) g/dL Microbiology - Last 24 Hours (Table) 07/14/19 21:30 Gram Stain - Final Sputum Sputum Culture - Final Aspergillus fumigatus Bharti albicans 07/14/19 12:20 Gram Stain - Final Elbow - Right Wound Culture - Final Assessment and Plan Assessment: Acute hypoxic respiratory failure secondary to COPD, CHF and possible pneumonia rule out COVID Acute blood loss anemia with thrombocytopenia Severe PAD with Debility Sepsis with E. coli UTI and bacteremia Acute renal failure with Left-sided hydronephrosis Acute metabolic encephalopathy Atrial fibrillation with RVR Steroid-induced hyperglycemia Troponin elevation History of alcohol abuse This morning chest x-ray shows stable exam with minimal bilateral pleural effusion along with bibasilar airspace disease. Plans: Continue Pulmicort. Continue formoterol. DuoNeb scheduled and as needed for shortness of breath and wheezing. Currently off Solu-Medrol. O2 per [place] to maintain O2 saturation greater than 92%. Ventilator management as per pulmonology. Pulmonology on board. Platelet count of 158 post 1 unit platelet. Hg 7.3 post 2 unit PRBC. Also with chronic alcohol abuse. Plans: No obvious signs of gross bleeding. Hemoglobin remaining. Repeat CBC tomorrow morning. Transfuse if platelet count less than 10. Plans: No intervention planned by vascular surgery as of yet. Heparin drip continued by vascular surgery. PT and OT consulted. PMR consulted for possible inpatient rehab. CT aorta with runoff planned if patient is able to recover. Blood culture and urine culture positive for E. coli. Repeat blood cultures negative at 144 hours. Plans: Continue Zosyn. Follow repeat blood cultures. Infectious disease on board. BUN 42, creatinine 1.47. Also with left-sided hydronephrosis. Plans: Urology evaluated patient for hydronephrosis, found to be mild in nature with nothing further from a urologic standpoint. Avoid nephrotoxins. Repeat BMP tomorrow morning. Nephrology following. His metabolic encephalopathy is likely related to sepsis with E. coli bacteremia along with acute hypoxic respiratory failure. Patient's heart rate is currently regular. Plans: Patient will be continued on oral Metoprolol and amiodarone. Heparin drip started for anticoagulation. Cardiology on board. [id number] glucose 143. Plans: Levemir 20 units at bedtime. Insulin sliding scale. Regular Accu-Cheks. Hypoglycemic precautions. Troponin 0.061, 0.105, 0.125. Likely demand ischemia from A. fib with RVR also sepsis. Acute coronary syndrome ruled out. Plans: Follow cardiology recommendations. Plans: Continue to monitor for signs and symptoms of withdrawal. [Patient admitted for E. coli bacteremia and sepsis, repeat blood culture negative so far, on IV Abx. Found to have acute renal failure which is improving. Also hypoxic respiratory failure from COPD, CHF and possible PNA, reintubated on July 14. Started on heparin drip by vascular surgery for severe PAD and necrotic distal wounds. Plans for Dr. Ayala to address CODE STATUS with daughter. Prognosis is extremely poor.]
--- NOTE | 2019-07-17 15:10 | P.PN ---
Subjective Progress Note Date: 07/17/19 She was seen and examined lying in bed in the ICU. Patient is sedated on mechanical ventilation. No acute changes through the night. Patient at this time remains a full code. Nursing staff state that the patient's daughter who is the power of trademark attorney have spoken with several providers however would like to discuss any possible further vascular surgery intervention and CODE STATUS with Dr. Ayala. Objective - Vital Signs Vital signs: Vital Signs Temp 98.0 F 07/17/19 08:00 Pulse 80 07/17/19 09:00 Resp 17 07/17/19 09:00 BP 91/60 07/17/19 09:00 Pulse Ox 100 07/17/19 09:00 Intake & Output 07/16/19 07/17/19 07/17/19 18:59 06:59 18:59 Intake Total 2589.502 9701.092 371.810 Output Total 1215 940 195 Balance 60.408 422.092 176.810 Weight 85.2 kg 87.6 kg Intake: IV 420 120 130 0.9 Normal Saline @ 10mL/ 120 120 30 hr as KVO Piperacillin-Tazobactam 3 300 100 .375 gm In Sodium Chloride 0.9% 100 ml @ 25 mls/hr IVPB Q8HR [facility] Rx# :[id number] Intake, IV Titration 284.408 528.092 58.810 Amount Heparin Sod,Pork in 0.45% 250 NaCl 25,000 unit In 0.45 % NaCl 1 250ml.bag @ 11.6 UNITS/KG/HR 9.999 mls/hr IV .Q24H [facility] Rx#: [id number] Norepinephrine 8 mg In 86.825 Sodium Chloride 0.9% 250 ml @ 0.05 MCG/KG/MIN 8. 253 mls/hr IV .Q24H RENE Rx#:[id number] Propofol 1,000 mg In 197.583 278.092 58.810 Empty Bag 1 bag @ Titrate IV .Q0M RENE Rx#: [id number] Tube Feeding 481 714 153 Other 90 30 Output: Urine 1215 940 195 Other: Voiding Method Indwelling Catheter Indwelling Catheter - Exam General appearance: The patient is sedated on mechanical ventilation. HET: Head is normocephalic and atraumatic. Neck: Supple without lymphadenopathy. Trachea midline. Heart: S1 S2. Irregular rate and rhythm. Lungs: Diminished lung sounds with rhonchi. Abdomen: Soft, nontender, nondistended with bowel sounds. Extremities: Bilateral hands with edema, purple coloring and mottling, left greater than right, bilateral palpable 2+ radial pulses. Bilateral fingertips with necrotic tissue. Bilateral lower extremities with mottling, diminished capillary refill. Bilateral lower extremities with nonpalpable pulses, and absent doppler signal at PT and DP. Bilateral femoral and popliteal Doppler signal. Ulcers on lateral side of bilateral ankles, with ulcerations to bilateral great toes and left second toe. Bilateral lower extremities cold to touch. Bilateral lower extremity toes with necrotic tissue. Neurological: sedated. - Labs CBC & Chem 7: 07/17/19 04:25 07/17/19 04:25 Labs: Abnormal Lab Results - Last 24 Hours (Table) 07/16/19 07/16/19 07/16/19 Range/Units 12:49 13:41 18:07 RBC (4.30-5.90) m/uL Hgb (13.0-17.5) gm/dL Hct (39.0-53.0) % MCV (80.0-100.0) fL MCH (25.0-35.0) pg RDW (11.5-15.5) % Macrocytosis APTT (22.0-30.0) sec ABG O2 Saturation (94-97) % Chloride (98-107) mmol/L BUN (9-20) mg/dL Creatinine (0.66-1.25) mg/dL Glucose (74-99) mg/dL POC Glucose (mg/dL) 190 H 192 H 170 H (75-99) mg/dL Calcium (8.4-10.2) mg/dL Total Protein (6.3-8.2) g/dL Albumin (3.5-5.0) g/dL 07/17/19 07/17/19 07/17/19 Range/Units 00:20 04:25 04:25 RBC 1.95 L (4.30-5.90) m/uL Hgb 7.3 L (13.0-17.5) gm/dL Hct 23.3 L (39.0-53.0) % MCV 119.6 H (80.0-100.0) fL MCH 37.4 H (25.0-35.0) pg RDW 21.6 H (11.5-15.5) % Macrocytosis Marked A APTT 42.9 H (22.0-30.0) sec ABG O2 Saturation (94-97) % Chloride (98-107) mmol/L BUN (9-20) mg/dL Creatinine (0.66-1.25) mg/dL Glucose (74-99) mg/dL POC Glucose (mg/dL) 172 H (75-99) mg/dL Calcium (8.4-10.2) mg/dL Total Protein (6.3-8.2) g/dL Albumin (3.5-5.0) g/dL 07/17/19 07/17/19 07/17/19 Range/Units 04:25 05:23 05:42 RBC (4.30-5.90) m/uL Hgb (13.0-17.5) gm/dL Hct (39.0-53.0) % MCV (80.0-100.0) fL MCH (25.0-35.0) pg RDW (11.5-15.5) % Macrocytosis APTT (22.0-30.0) sec ABG O2 Saturation 98.5 H (94-97) % Chloride 110 H (98-107) mmol/L BUN 42 H (9-20) mg/dL Creatinine 1.47 H (0.66-1.25) mg/dL Glucose 114 H (74-99) mg/dL POC Glucose (mg/dL) 143 H (75-99) mg/dL Calcium 7.2 L (8.4-10.2) mg/dL Total Protein 4.5 L (6.3-8.2) g/dL Albumin 2.0 L (3.5-5.0) g/dL Microbiology - Last 24 Hours (Table) 07/14/19 21:30 Gram Stain - Final Sputum Sputum Culture - Final Aspergillus fumigatus Bharti albicans 07/14/19 12:20 Gram Stain - Final Elbow - Right Wound Culture - Final Assessment and Plan Assessment: 1. Bilateral lower extremity toe ulcerations, Kelly 5 peripheral arterial disease 2. Acute metabolic encephalopathy 3. Acute hypoxic respiratory failure, previously on BiPAP 4. Metabolic acidosis with acute kidney injury-stable 5. Acute kidney injury 6. History of abdominal aortic aneurysm status post repair 7. history of alcohol abuse and withdrawal 8. chronic anemia 9. thrombocytopenia Plan: No vascular intervention at this time. Tomorrow Dr. Ayala and patient's daughter who is the power of trademark attorney are to discuss any future vascular surgery interventions which will likely include the need for amputations. Continue medi aftab management per ICU. Continue with heparin drip if platelets stable. Keep bilateral off-loading boots on feet. The above dictated assessment and findings were discussed with The impression and plan of care have been directed as dictated.
[2019-07-17 18:39] LABS: Glucose,Whole Blood 120 mg/dL (75-99)
[2019-07-17] MEDS: NOREPINEPHRINE 8 MG in SODIUM CHLORIDE 0.9% 250 ML IV SCH (18:48)
[2019-07-17 20:17] LABS: Glucose,Whole Blood 88 mg/dL (75-99)
[2019-07-17] MEDS: INSULIN DETEMIR (LEVEMIR) 100 UNIT/ML SYR SQ SCH (20:30)
[2019-07-17 23:11] LABS: Glucose,Whole Blood 122 mg/dL (75-99)
[2019-07-18] MEDS: PROPOFOL 1,000 MG in EMPTY BAG 1 BAG IV SCH ×5 (01:09→21:12)
--- NOTE | 2019-07-18 02:33 | PN ---
PROGRESS NOTE DATE OF SERVICE: 07/17/2019 REASON FOR FOLLOWUP: E coli urinary tract infection, bacteremia and aspiration pneumonia. INTERVAL HISTORY: The patient is currently afebrile. The patient remains to be intubated on the vent. He is hemodynamically stable not on pressor support. FiO2 is currently 40%. He well this morning and no diarrhea has been reported by nursing staff. PHYSICAL EXAMINATION: Blood pressure 93/56, pulse of 76, temperature of 98. He is 98% on 40% FiO2. General description is an elderly male lying in bed in no distress. RESPIRATORY SYSTEM: Unlabored breathing, clear to auscultation anteriorly. HEART: S1, S2. Regular rate and rhythm. ABDOMEN: Soft, no tenderness. Did have significant ischemic changes to all his 4 limbs, especially hands and feet. LABS: White count normal at 10.4, BUN of 42, creatinine 1.47. DIAGNOSTIC IMPRESSION AND PLAN: Patient with Escherichia coli bacteremia secondary to urinary source, also component aspiration pneumonia. Patient is covered with Zosyn. Sputum currently likely colonizer. Monitor clinical course closely. Continue Zosyn. MMODL / IJN: [id number] /
[2019-07-18 04:38] LABS: Anisocytosis Moderate; Basophils % (A) 0 %; Eosinophils % (A) 0 %; HCT 21.3 % (39.0-53.0); Hypochromasia Marked; Lymphocytes # (A) 0.8 k/uL (1.0-4.8); Lymphocytes % (A) 8 %; MCHC 30.5 g/dL (31.0-37.0); MCV 121.4 fL (80.0-100.0); Macrocytosis Marked; Mean Platelet Volume 10.4; Monocytes # (A) 0.4 k/uL (0-1.0); Monocytes % (A) 4 %; Neutrophils # (A) 8.6 k/uL (1.3-7.7); Neutrophils % (A) 87 %; Platelet Count 155 k/uL (150-450); RBC 1.76 m/uL (4.30-5.90); RDW 21.3 % (11.5-15.5); WBC 9.9 k/uL (3.8-10.6)
[2019-07-18 04:41] LABS: HGB 6.5 gm/dL (13.0-17.5)
[2019-07-18] MEDS: INSULIN ASPART (NovoLOG) 100 UNIT/ML VIAL SQ SCH ×3 (05:11→17:14)
[2019-07-18 05:12] LABS: Glucose,Whole Blood 126 mg/dL (75-99)
[2019-07-18 05:14] LABS: Calcium 7.4 mg/dL (8.4-10.2); Potassium 4.3 mmol/L (3.5-5.1)
[2019-07-18] MEDS: HEPARIN SOD,PORK IN 0.45% NACL 25,000 UNIT in 0.45% NACL 1 250ML.BAG IV SCH (07:06)
[2019-07-18] MEDS: IPRATROPIUM-ALBUTEROL 3 ML NEB INHALATION SCH ×4 (08:07→19:46)
[2019-07-18] MEDS: FORMOTEROL FUMARATE 20 MCG/2 ML NEBU INHALATION SCH ×2 (08:07→19:46)
[2019-07-18] MEDS: PIPERACILLIN-TAZOBACTAM 3.375 GM in SODIUM CHLORIDE 0.9% 100 ML IVPB SCH ×2 (08:43→17:11)
[2019-07-18] MEDS: PANTOPRAZOLE 40 MG/10 ML VIAL IV SCH (08:44)
[2019-07-18] MEDS: CHLORHEXIDINE GLUCONATE 15 ML CUP MUCOUS MEM SCH ×2 (08:44→20:32)
[2019-07-18] MEDS: AMIODARONE 200 MG TAB PO SCH ×2 (08:44→20:32)
--- NOTE | 2019-07-18 09:03 | XR ---
EXAMINATION TYPE: XR chest 1V portable DATE OF EXAM: 07/18/2019 COMPARISON: 07/17/2019 HISTORY: Tube placement TECHNIQUE: Single frontal view of the chest is obtained. FINDINGS: Right-sided PICC, endotracheal tube, left central venous catheter and enteric tube appears similar to the prior. Cardiomediastinal split is again enlarged. There is blunting of the costophren ic angles. Multilevel moderate degenerative change of the spine. Mild right hemidiaphragm elevation. Old left rib fractures better seen on prior. Bibasilar airspace disease likely on the basis of atelec tasis. Attention on the left on follow-up exams as there is somewhat nodular morphology although this was not appreciated on the prior. IMPRESSION: Stable trace pleural effusions and bibasilar airspace disease, likely atelectasis.
--- NOTE | 2019-07-18 10:02 | P.PN ---
Subjective Patient is seen in follow for acute kidney injury. Renal function is stable. Nonoliguric. Off vasopressors. Receiving tube feeding. Remains intubated. Hemoglobin 6.5 this morning. He has received 1 unit of blood transfusion today. Vital signs are stable. General: The patient appeared well nourished and normally developed. HEENT: Head exam is unremarkable. Intubated. LUNGS: Breath sounds decreased. HEART: Rate and Rhythm are regular. ABDOMEN: Soft. EXTREMITITES: Trace edema. Gangrenous changes noted. Objective - Vital Signs Vital signs: Vital Signs Temp 98.1 F 07/18/19 08:53 Pulse 72 07/18/19 09:00 Resp 16 07/18/19 09:00 BP 104/58 07/18/19 09:00 Pulse Ox 98 07/18/19 09:00 Intake & Output 07/17/19 07/18/19 07/18/19 18:59 06:59 18:59 Intake Total 3608.048 9677.560 952.539 Output Total 800 860 250 Balance 744.134 333.560 702.539 Weight 89 kg Intake: IV 320 220 130 0.9 Normal Saline @ 10mL/ 120 120 30 hr as KVO Piperacillin-Tazobactam 3 200 100 100 .375 gm In Sodium Chloride 0.9% 100 ml @ 25 mls/hr IVPB Q8HR R[facility] Rx# :[id number] Intake, IV Titration 522.134 271.560 329.539 Amount Heparin Sod,Pork in 0.45% 250.000 229.539 NaCl 25,000 unit In 0.45 % NaCl 1 250ml.bag @ 11.6 UNITS/KG/HR 9.999 mls/hr IV .Q24H RENE Rx#: [id number] Propofol 1,000 mg In 272.134 271.560 100 Empty Bag 1 bag @ Titrate IV .Q0M RENE Rx#: [id number] Tube Feeding 612 612 153 Blood Product 0 310 Rc As-1 Unit 0 310 [id number] Other 90 90 30 Output: Urine 800 860 250 Other: Voiding Method Indwelling Catheter Indwelling Catheter # Bowel Movements 1 - Labs CBC & Chem 7: 07/18/19 04:17 07/18/19 04:17 Labs: Abnormal Lab Results - Last 24 Hours (Table) 07/15/19 07/17/19 07/17/19 Range/Units 05:17 12:17 17:35 RBC (4.30-5.90) m/uL Hgb (13.0-17.5) gm/dL Hct (39.0-53.0) % MCV (80.0-100.0) fL MCH (25.0-35.0) pg MCHC (31.0-37.0) g/dL RDW (11.5-15.5) % Neutrophils # (1.3-7.7) k/uL Lymphocytes # (1.0-4.8) k/uL Macrocytosis APTT 47.6 H (22.0-30.0) sec Chloride (98-107) mmol/L BUN (9-20) mg/dL Creatinine (0.66-1.25) mg/dL Glucose (74-99) mg/dL POC Glucose (mg/dL) 140 H (75-99) mg/dL Calcium (8.4-10.2) mg/dL Crossmatch See Detail 07/17/19 07/17/19 07/18/19 Range/Units 18:37 23:10 04:17 RBC 1.76 L (4.30-5.90) m/uL Hgb 6.5 L* (13.0-17.5) gm/dL Hct 21.3 L (39.0-53.0) % MCV 121.4 H (80.0-100.0) fL MCH 37.0 H (25.0-35.0) pg MCHC 30.5 L (31.0-37.0) g/dL RDW 21.3 H (11.5-15.5) % Neutrophils # 8.6 H (1.3-7.7) k/uL Lymphocytes # 0.8 L (1.0-4.8) k/uL Macrocytosis Marked A APTT (22.0-30.0) sec Chloride (98-107) mmol/L BUN (9-20) mg/dL Creatinine (0.66-1.25) mg/dL Glucose (74-99) mg/dL POC Glucose (mg/dL) 120 H 122 H (75-99) mg/dL Calcium (8.4-10.2) mg/dL Crossmatch 07/18/19 07/18/19 07/18/19 Range/Units 04:17 04:17 05:09 RBC (4.30-5.90) m/uL Hgb (13.0-17.5) gm/dL Hct (39.0-53.0) % MCV (80.0-100.0) fL MCH (25.0-35.0) pg MCHC (31.0-37.0) g/dL RDW (11.5-15.5) % Neutrophils # (1.3-7.7) k/uL Lymphocytes # (1.0-4.8) k/uL Macrocytosis APTT 51.0 H (22.0-30.0) sec Chloride 111 H (98-107) mmol/L BUN 39 H (9-20) mg/dL Creatinine 1.44 H (0.66-1.25) mg/dL Glucose 121 H (74-99) mg/dL POC Glucose (mg/dL) 126 H (75-99) mg/dL Calcium 7.4 L (8.4-10.2) mg/dL Crossmatch Microbiology - Last 24 Hours (Table) 07/14/19 21:30 Gram Stain - Final Sputum Sputum Culture - Final Aspergillus fumigatus Bharti albicans Assessment and Plan Plan: Assessment: 1. Acute kidney injury secondary to ATN secondary to sepsis and hemodynamic instability. Renal function stable. 2. E. coli UTI and bacteremia maintained on antibiotics. Infectious disease following. 3. A. fib with RVR on admission. Maintained on oral amiodarone. 4. Bilateral toe gangrene. Vascular surgery following. Currently on heparin drip. 5. Mild volume overload. Plan: Maintain tube feeding. Lasix 40 mg IV once today. Monitor hemoglobin. Overall prognosis guarded.
[2019-07-18] MEDS ORDERED: FUROSEMIDE 10 MG/ML 4 ML VIAL IV STA (10:45)
[2019-07-18 10:54] LABS: Anisocytosis Moderate; HCT 24.7 % (39.0-53.0); HGB 7.6 gm/dL (13.0-17.5); Hypochromasia Marked; MCH 35.2 pg (25.0-35.0); MCHC 30.8 g/dL (31.0-37.0); Macrocytosis Marked; Mean Platelet Volume 9.8; Platelet Count 153 k/uL (150-450); RBC 2.17 m/uL (4.30-5.90); WBC 10.7 k/uL (3.8-10.6)
[2019-07-18 10:59] LABS: MCV 114.2 fL (80.0-100.0)
--- NOTE | 2019-07-18 13:18 | P.PN ---
Subjective Progress Note Date: 07/18/19 Principal diagnosis: Acute hypoxic respiratory failure, E. coli sepsis, septic shock and bacteremia with underlying urinary tract infection. 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 coli sepsis secondary to UTI. The patient subsequently went into hypoxic respiratory failure requiring BiPAP for respiratory support with a component of fluid overload and possible pneumonia. In addition, the patient had acute kidney injury, atrial fibrillation with rapid ventricular response. He is known to have also peripheral vascular disease. The patient was placed on BiPAP for respiratory support and he was kept in the intensive care unit. In terms of his E. coli sepsis, urine culture and the blood culture was positive and the patient is still receiving IV antibiotics and the patient is currently on IV Zosyn. He is afebrile and he is hemodynamically stable on no pressors and the patient is not requiring any pressors. In fact, the patient is on amiodarone drip at 0.5 mg per minute and addition to Cardizem at 10 mg an hour for rate control regarding his atrial fibrillation. His echocardiogram was completed on 07/05/2019 and the patient was found to have a impaired LV function with an ejection fraction of 30-35% and mildly enlarged RV with a right-sided pulmonary artery pressure is estimated to be around 46 mmHg. His renal function was also abnormal. The patient developed an acute kidney injury, admission with a creatinine of 4.6 which gradually improved during the course of his treatment with a decline in the creatinine levels. The patient also had a anion gap metabolic acidosis with gradually recovered. Nephrology is on the case. Ultrasound the kidneys did not show any significant hydronephrosis on this patient. The chest x-ray showed left basilar consolidation right perihilar opacity consistent with multifocal atelectasis/pneumonia. He is receiving PPN for nutritional support. He does have also comorbidities including hypertension , hyperlipidemia, COPD and addition to chronic alcohol use. On today's evaluation of 07/10/2019, the patient is lethargic and weak yet awake and following commands and answering questions appropriately. He is on 3 L of oxygen by nasal cannula. He is not utilizing his BiPAP for now. He remains in atrial fibrillation. He remains on amiodarone maintenance of 0.5 mg per minute. He is on IV Zosyn. His thrombocytopenia is improving. He is receiving PPN for nutritional support. He does have severe peripheral vascular disease along with chronic arterial necrotic ulcers in his toes bilaterally in addition to some necrotic wounds in the ankles bilaterally worse on the right. He remains afebr ile. On today's evaluation of 07/11/2019 the patient is essentially same yesterday. He is lethargic. He is weak. He follows some simple commands. He seems to be appropriate however profoundly weak. He passed a swallow evaluation. Nevertheless, he is oral intake is considered to be low and the patient will be kept on PPN for nutritional support. The patient's IV medication will be switched over to oral as the patient is on amiodarone and Cardizem drip for his atrial fibrillation. Is currently on 2 L of oxygen by nasal cannula. Urine culture came back positive for E. coli. For now, the patient is on oral amiodarone regarding his atrial fibrillation 400 mg by mouth twice a day. The patient is on Toprol 25 mg twice a day. He is receiving Levemir insulin 20 units daily at bedtime. Discontinuation of the IV Solu Medrol helped his blood sugar control. Nevertheless, the patient on PPN which is obviously contributing to his blood sugar elevation. No other significant events overnight. His resting comfortably in bed. On 07/12/2019, the patient is essentially the same condition. Oral intake is minimal and he is not eating much approximately 10-20% of his tray is being utilized on a daily basis. For that reason the patient is being supplemented with TPN for nutritional support. He remains on IV Zosyn. His urine culture came back positive for E. coli. Blood culture came back positive for E. coli. He is on 40s of oxygen by nasal cannula with a pulse ox of 91%. He is awake and alert and is following commands and answering questions. Nevertheless, he remains wide lethargic and weak and he is very much laying in bed without much of an activity. He has extensive bruising over extremities in addition to severe peripheral vascular disease with chronic ulcerations and his toes bilaterally and these are arterial ulcers are quite necrotic. Vascular surgeries on the case and no surgical interventions to be done. Renal function continues to improve in the creatinine is down to 1.7. Hemoglobin is at 9 without any significant leukocytosis. The blood sugar is under adequate control as the patient is on Lantus insulin in addition to sliding scale coverage. On 07/13/2019, the patient is still doing poorly. Laying in bed. No significant respiratory distress. Nevertheless, he seems to be quite lethargic and he drifts to sleep if left unstimulated. I was told that he worked with physical therapy. His oral intake is still low and the patient is still re ceiving TPN for nutritional support. The patient is completing the course of his IV Zosyn regarding E. coli sepsis and the hemodynamic parameters is improved, his blood pressure is normalized, his renal function continues to improve and his platelet count is also normalized. On today's evaluation, the skin in the lower extremity and the feet of significantly more mottled and the patient has no Doppler pulses that I was able to identify in his legs. Based on that, I recommended an immediate vascular surgery reevaluation regarding this issue. I discussed this case with Dr. Ladd. We decided to put the patient IV heparin now that his platelet count has improved. No plans for any surgical intervention. He has extensive vascular disease with chronic arterial ulcers in lower extremities bilaterally. These ulcers are dry and necrotic and nondraining. No fever. No chills. He has had no bowel movement and the patient will be given l laxative in that regard. I was able to talk to the daughter yesterday. I discussed with her his poor prognosis based on the above- mentioned comorbidities. Obviously the vascular insufficiency is a significant issue for now. He is on Levemir insulin and the dose was adjusted up to 20 units along with his vascular coverage. On 07/14/2019, no major changes in his condition and the patient is essentially the same, but he is laying down comfortably in bed, lethargic, at times confused, and sleepy. No pulses in lower extremities bilaterally and I was unable to also feel the popliteal pulses. The feet are extremely cold and ischemic with arterial necrotic wounds bilaterally. He is currently on IV heparin. Denies having any pain issues. No issues with bleeding complications. Skin is mottled and there are some areas of subcutaneous bruising in upper extremities bilaterally. He is still receiving TPN for nutritional support. Cardiac rhythm is sinus on oral amiodarone 400 mg by mouth twice a day. The patient has no hemodynamic instability. Pro-calcitonin level has dropped as the patient was treated for E. coli septicemia. Contacted the daughter. Unfortunately this is not a good situation specially the patient is quite debilitated and his oral intake is quite minimal and the patient is unable to show any signs of any clinical recovery. Furthermore, there is further ischemic changes in lower extremities bilaterally and vascular surgeon is contemplating subsequent amputation of later stage as the patient is not a candidate for any vascular interventions other than amputation for now. No clear lines of the medication lower extremities. Hemoglobin is at 7.8. On 07/15/2019, the patient is being seen in follow-up in intensive care unit. The patient's condition decompensated yesterday afternoon. The patient became progressively more lethargic and weak and tachypneic and hypoxic. He was not following any commands and he was found to be significant respiratory distress. At that point we decided to proceed with intubation and following that'll place the patient on mechanical ventilator. Note that the family was informed of these changes and intubation was cleared with the daughters. For now, the patient is an assist-control mode of ventilation at the rate of 16 with a tidal volume of 450 and FiO2 of 40% with a PEEP of 5. The patient post intubation blood gas was reviewed. There is a sitter ventilator changes were done. The patient was weaned down to 40% FiO2. Meanwhile, the chest x-ray shows no evid ence of an acute pneumonia, and the blood gas showed a pH of 7.45 with a pCO2 of 34 and pO2 of 77. The morning blood gases showed a hemoglobin of 6.6 and the patient is receiving a unit of packed RBC. The patient was receiving IV heparin there was no evidence of any acute bleeding. The patient is also is requiring norepinephrine infusion for blood pressure support which is running at 0.08 g per KG per minute. He is currently sedated with propofol running at 40 g per KG per minute. IV fluids are currently at KVO and the patient is on TPN for nutritional support via PICC line. The ultimate goal is to switch this patient for enteral feeding for nutritional support now that we have an axis with a orogastric tube. The patient is afebrile. The patient is extremely poor vascular system with necrotic digits and fingers and upper extremities along with ischemic feet bilaterally with there is absent dorsalis pedis and posterior tibialis. Noted post intubation mechanical ventilation, we were able to obtain Doppler popliteal segments. Nevertheless, the mottling and the line of demarc ation is forming in the lower extremities as the patient has extensive necrosis of the toes bilaterally. Family has been made aware. Vester surgeries on the case. In terms of IV access, established also a left IJ triple-lumen catheter without any major difficulties today. Antibiotic coverage with IV Zosyn which is an empiric antibiotic coverage for now. The patient is on Levemir insulin 20 units daily at bedtime along with it. Coverage. Levemir will be kept on hold for now. His cardiac rhythm is A. fib which is well-controlled and the patient remains on amiodarone orally 4 mg by mouth twice a day. I had to stop the metoprolol as the patient become hypotensive requiring pressors. On 07/16/2019, the patient remains intubated on a mechanical ventilator. Doing poorly from the vascular standpoint as the patient has necrotic fingers and necrotic toes with clearly mottling and demarcation line establishing in the right and left lower extremities with absent pulses in the feet. Cerebellar necrotic changes in the fingers of the hand bilaterally. There is some areas of skin denuding from the heel area and the right foot. Nevertheless, he remains on IV heparin. He remains sedated with propofol while being on a mechanical ventilator. He is on a very low dose of norepinephrine infusion for blood pressure support which is running at 0.03 g per KG per minute. The patient is receiving enteral feeding for nutritional support in the form of vital high protein AF at the rate of 30 mL an hour. He remains on a mechanical ventilator. Assist-control at the rate of 16 with a tidal volume of 450 and FiO2 of 40% with a PEEP of 5. He is well sedated. Easily arousable. Morphine for pain control. Levemir insulin for blood sugar control in addition to sliding scale coverage. Oral amiodarone 400 mg by mouth twice a day regarding his atrial fibrillation. He remains in sinus although answers at times is going still into atrial fibrillation with a controlled rate. He remains on IV Zosyn. No other significant issues otherwise for now. Patient was reevaluated today on, remains in the ICU, intubated and mechanically ventilated. He is on assist control rate of 16 tidal volume is 450 FiO2 is 40% and PEEP is 5. Remains on propofol at 20 mcg/kg/m, IV fluid is at K VO, off pressors, patient is being followed by many consultants including infectious disease, nephrology, vascular surgery, and according to the nurses, his daughter is planning to discuss his vascular issues with the vascular surgeon on Wednesday/tomorrow, and we will have to make a decision regarding amputations or possibly proceed to comfort care measures which is the measure I will strongly recommend instead of amputations. ABG today showed a pO2 of 108 pCO2 of 36 pH of 7.42. Hemoglobin is 7.3 WBC count is 10.4. Electrolytes are normal BUN is 42 and creatinine is 1.47 which is about the same over the last few days. Chest x-ray showed trace of bilateral pleural effusions and minimal bibasilar atelectasis. Patient was reevaluated today on in the ICU intubated and mechanica lly ventilated. Ventilator settings are assist control rate of 16 tidal volume is 450 FiO2 40% PEEP is 5. No ABG was done today. His drips include IV fluid at KVO, heparin, and the prevent at 50 mcg/kg/m. Patient is not requiring any pressors. Hemoglobin was noted to be 6.9 this morning, and he received a unit of packed RBCs. Patient remains on enteral tube feeding, he is presently at 51 mL per hour. Patient is hemodynamically stable blood pressure is 94/59 and O2 saturations 98% and he is in sinus rhythm rate of 70. Today I have instructed the nurses to consider sedation holiday, and assessment of mental status, patient is nowhere near weaning, and most likely the patient will be extremely difficult to wean and extubate. And no decision will be made regarding any weaning trials until a final decision is made regarding his vascular issues and possibly multi-limb amputations. Supposedly the daughter is going to discuss his vascular condition with the vascular surgeon today. Objective - Vital Signs Vital signs: Vital Signs Temp 98.1 F 07/18/19 08:53 Pulse 78 07/18/19 12:14 Resp 16 07/18/19 10:30 BP 89/56 07/18/19 10:30 Pulse Ox 97 07/18/19 10:30 Intake & Output 07/17/19 07/18/19 07/18/19 18:59 06:59 18:59 Intake Total 8663.776 8259.560 997.674 Output Total 800 860 250 Balance 744.134 333.560 747.674 Weight 89 kg Intake: IV 320 220 130 0.9 Normal Saline @ 10mL/ 120 120 30 hr as KVO Piperacillin-Tazobactam 3 200 100 100 .375 gm In Sodium Chloride 0.9% 100 ml @ 25 mls/hr IVPB Q8HR [facility] Rx# :[id number] Intake, IV Titration 522.134 271.560 374.674 Amount Heparin Sod,Pork in 0.45% 250.000 229.539 NaCl 25,000 unit In 0.45 % NaCl 1 250ml.bag @ 11.6 UNITS/KG/HR 9.999 mls/hr IV .Q24H [facility] Rx#: [id number] Propofol 1,000 mg In 272.134 271.560 145.135 Empty Bag 1 bag @ Titrate IV .Q0M [facility] Rx#: [id number] Tube Feeding 612 612 153 Blood Product 0 310 Rc As-1 Unit 0 310 [id number] Other 90 90 30 Output: Urine 800 860 250 Other: Voiding Method Indwelling Catheter Indwelling Catheter # Bowel Movements 1 - Exam Physical Exam: Revealed a 73-year-old white male on mechanical ventilation, sedated. Head: Atraumatic, normocephalic. HEENT:[Neck is supple.] [No neck masses.] [No thyromegaly.] [No JVD.] PERRLA, EOMI, no icterus. Endotracheal tube and orogastric tube are intact. Chest: [Diminished breath sounds at the bases with coarse crackles and rhonchi bilaterally. Symmetrical chest expansion. Cardiac Exam: Irregular irregular rhythm, no S3 gallop. No murmur. Abdomen: [Soft, nontender, no megaly, no rebound, no guarding, normal bowel sounds.] Extremities: There is significant acrocyanosis. There is also some mottling of the lower extremities. Skin reveals arterial necrotic ulcers in his toes bilaterally where several toes are necrotic and the patient has necrotic ankle wounds worse on the right lateral aspect of the ankle as well as chronic ecchymotic areas throughout his body. Pulses are absent in the feet bilaterally and the skin is mottled and the feet are extremely cold along with extensive arterial necrotic wounds in his feet and the toes bilaterally. On today's evaluation, there may be a line of demarcation forming in the feet which is an area above the ankle. Neurological Exam: Could not be assessed, patient is sedated and intubated. Psychiatric: Could not be assessed. Patient is on propofol drip. Skin: As noted above under extremities. - Labs CBC & Chem 7: 07/18/19 10:30 07/18/19 04:17 Labs: Abnormal Lab Results - Last 24 Hours (Table) 07/15/19 07/17/19 07/17/19 Range/Units 05:17 17:35 18:37 WBC (3.8-10.6) k/uL RBC (4.30-5.90) m/uL Hgb (13.0-17.5) gm/dL Hct (39.0-53.0) % MCV (80.0-100.0) fL MCH (25.0-35.0) pg MCHC (31.0-37.0) g/dL RDW (11.5-15.5) % Neutrophils # (1.3-7.7) k/uL Lymphocytes # (1.0-4.8) k/uL Macrocytosis APTT 47.6 H (22.0-30.0) sec Chloride (98-107) mmol/L BUN (9-20) mg/dL Creatinine (0.66-1.25) mg/dL Glucose (74-99) mg/dL POC Glucose (mg/dL) 120 H (75-99) mg/dL Calcium (8.4-10.2) mg/dL Crossmatch See Detail 07/17/19 07/18/19 07/18/19 Range/Units 23:10 04:17 04:17 WBC (3.8-10.6) k/uL RBC 1.76 L (4.30-5.90) m/uL Hgb 6.5 L* (13.0-17.5) gm/dL Hct 21.3 L (39.0-53.0) % MCV 121.4 H (80.0-100.0) fL MCH 37.0 H (25.0-35.0) pg MCHC 30.5 L (31.0-37.0) g/dL RDW 21.3 H (11.5-15.5) % Neutrophils # 8.6 H (1.3-7.7) k/uL Lymphocytes # 0.8 L (1.0-4.8) k/uL Macrocytosis Marked A APTT 51.0 H (22.0-30.0) sec Chloride (98-107) mmol/L BUN (9-20) mg/dL Creatinine (0.66-1.25) mg/dL Glucose (74-99) mg/dL POC Glucose (mg/dL) 122 H (75-99) mg/dL Calcium (8.4-10.2) mg/dL Crossmatch 07/18/19 07/18/19 07/18/19 Range/Units 04:17 05:09 10:30 WBC 10.7 H (3.8-10.6) k/uL RBC 2.17 L (4.30-5.90) m/uL Hgb 7.6 L (13.0-17.5) gm/dL Hct 24.7 L (39.0-53.0) % MCV 114.2 H D (80.0-100.0) fL MCH 35.2 H (25.0-35.0) pg MCHC 30.8 L (31.0-37.0) g/dL RDW 23.0 H (11.5-15.5) % Neutrophils # (1.3-7.7) k/uL Lymphocytes # (1.0-4.8) k/uL Macrocytosis Marked A APTT (22.0-30.0) sec Chloride 111 H (98-107) mmol/L BUN 39 H (9-20) mg/dL Creatinine 1.44 H (0.66-1.25) mg/dL Glucose 121 H (74-99) mg/dL POC Glucose (mg/dL) 126 H (75-99) mg/dL Calcium 7.4 L (8.4-10.2) mg/dL Crossmatch Assessment and Plan Assessment: Impression: Acute hypoxic respiratory failure requiring intubation and mechanical ventilation. E. coli sepsis bacteremia and septic shock. Requiring norepinephrine initially Severe peripheral vessel occlusive disease, Acute kidney injury Severe COPD. Chronic atrial fibrillation. Type 2 diabetes. 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 Dyslipidemia Hypertension. Anion gap metabolic acidosis secondary to sepsis and septic shock. Chronic anemia Recommendation: Continue ventilatory support. Continue hemodynamic support if needed. Continue propofol. Will hold today just to assess mental status Continue nutritional support. Continue antibiotics as per ID on the case. Continue Levemir insulin and sliding scale coverage. Continue to monitor renal profile. Continue GI and DVT prophylaxis. Awaiting final input from vascular surgery after discussing his condition with the daughter, I still believe the best approach would be to consider comfort care measures on this patient Critical care time is 34 minutes. Time with Patient: Greater than 30
[2019-07-18] MEDS: THIAMINE 100 MG/ML 2 ML VIAL IVP SCH (13:34)
[2019-07-18 13:36] LABS: Glucose,Whole Blood 123 mg/dL (75-99)
--- NOTE | 2019-07-18 14:55 | PN ---
PROGRESS NOTE DATE OF SERVICE: 07/18/2019 REASON FOR FOLLOWUP: Aspiration pneumonia, E coli UTI and bacteremia. INTERVAL HISTORY: The patient is currently afebrile. The patient is intubated on the vent. Clinically stable. No significant purulent secretion. On review, diarrhea has been reported. PHYSICAL EXAMINATION: Blood pressure 104/58 with a pulse of 72, temperature 98.1. He is 90% on 50% FiO2. General description is an elderly male, intubated on the vent. RESPIRATORY SYSTEM: Unlabored breathing with decreased breath sounds in the base, with no wheeze. HEART: S1, S2. Regular rate and rhythm. ABDOMEN: Soft, no tenderness. Significant ischemic changes to the hands and the feet. LABS: Hemoglobin 7.1, white count 10.7. DIAGNOSTIC IMPRESSION AND PLAN: Patient with E coli urinary tract infection with secondary bacteremia and a component of aspiration pneumonia. This patient did have a respiratory failure and currently on the vent. The patient is covered with Zosyn to continue. Overall prognosis remains to be guarded and may benefit from hospice oriented care. Continue supportive care. MMODL / IJN: [id number] /
--- NOTE | 2019-07-18 15:21 | P.PN ---
Progress Note - Text Progress Note Date: 07/18/19 I had a long discussion with the patient's daughter today, updated her on her dad's poor condition, she is very well aware of his poor prognosis, and if we end up extubating the patient, his daughter is agreeable to no reintubation. She is also planning to discuss his condition with the vascular surgeon today. I will plan weaning parameters in the next 24 hours, very likely the patient will not tolerate weaning or extubation Time.
--- NOTE | 2019-07-18 16:08 | P.PN ---
Subjective Progress Note Date: 07/18/19 Principal diagnosis: Altered mental status Patient was seen and examined. No acute events overnight. Patient currently being treated for E. coli UTI sepsis with hydronephrosis. Also has respiratory failure secondary to CHF, COPD and possible pneumonia. He was reintubated on 07/15/2019 for worsening respiratory status. Also in A. fib with RVR currently rate controlled on oral medications. Has history of PAD with necrotic lower extremity wounds, on heparin drip for possible microthrombi. Patient was seen and examined. He continues to be on the ventilator. Discussed with RN, future discussion between daughter and Dr. Ayala to be held regarding CODE STATUS. Hemoglobin this morning is 6.5. Plans to transfuse 1 unit PRBC. CMP showing BUN of 39 and creatinine of 1.44. Chest x-ray this morning shows stable exam with trace bilateral effusions and minimal by basilar airspace disease. His condition is essentially unchanged since yesterday. Objective - Vital Signs Vital signs: Vital Signs Temp 98.1 F 07/18/19 08:53 Pulse 78 07/18/19 12:14 Resp 16 07/18/19 10:30 BP 89/56 07/18/19 10:30 Pulse Ox 97 07/18/19 10:30 Intake & Output 07/17/19 07/18/19 07/18/19 18:59 06:59 18:59 Intake Total 8083.175 6556.560 997.674 Output Total 800 860 250 Balance 744.134 333.560 747.674 Weight 89 kg Intake: IV 320 220 130 0.9 Normal Saline @ 10mL/ 120 120 30 hr as KVO Piperacillin-Tazobactam 3 200 100 100 .375 gm In Sodium Chloride 0.9% 100 ml @ 25 mls/hr IVPB Q8HR RENE Rx# :[id number] Intake, IV Titration 522.134 271.560 374.674 Amount Heparin Sod,Pork in 0.45% 250.000 229.539 NaCl 25,000 unit In 0.45 % NaCl 1 250ml.bag @ 11.6 UNITS/KG/HR 9.999 mls/hr IV .Q24H RENE Rx#: [id number] Propofol 1,000 mg In 272.134 271.560 145.135 Empty Bag 1 bag @ Titrate IV .Q0M RENE Rx#: [id number] Tube Feeding 612 612 153 Blood Product 0 310 Rc As-1 Unit 0 310 [id number] Other 90 90 30 Output: Urine 800 860 250 Other: Voiding Method Indwelling Catheter Indwelling Catheter # Bowel Movements 1 - Exam General: [Appears toxic older than stated age], [intubated on ventilator], [appears at stated age] Derm: [warm], [dry] Head: [atraumatic], [normocephalic], [symmetric] Eyes: [EOMI], [no lid lag], [anicteric sclera] Mouth: [no lip lesion], [mucus membranes moist] Cardiovascular: [S1S2 regular], [no murmur], [unable to palpate DP or PT pulses in either extremities], Lungs: [Coarse breath sounds bilateral], [no rhonchi, no rales] , [no accessory muscle use] Abdominal: [soft], [ nontender to palpation], [nondistended], [no appreciable organomegaly] Ext: [no gross muscle atrophy], [no edema], [necrotic, ulcerated wounds in bilateral feet and toes with worsening erythema], [scattered ecchymosis in all 4 extremities] Neuro: [Unable to determine] Psych: [Unable to determine] - Labs CBC & Chem 7: 07/18/19 10:30 07/18/19 04:17 Labs: Abnormal Lab Results - Last 24 Hours (Table) 07/15/19 07/17/19 07/17/19 Range/Units 05:17 17:35 18:37 WBC (3.8-10.6) k/uL RBC (4.30-5.90) m/uL Hgb (13.0-17.5) gm/dL Hct (39.0-53.0) % MCV (80.0-100.0) fL MCH (25.0-35.0) pg MCHC (31.0-37.0) g/dL RDW (11.5-15.5) % Neutrophils # (1.3-7.7) k/uL Lymphocytes # (1.0-4.8) k/uL Macrocytosis APTT 47.6 H (22.0-30.0) sec Chloride (98-107) mmol/L BUN (9-20) mg/dL Creatinine (0.66-1.25) mg/dL Glucose (74-99) mg/dL POC Glucose (mg/dL) 120 H (75-99) mg/dL Calcium (8.4-10.2) mg/dL Crossmatch See Detail 07/17/19 07/18/19 07/18/19 Range/Units 23:10 04:17 04:17 WBC (3.8-10.6) k/uL RBC 1.76 L (4.30-5.90) m/uL Hgb 6.5 L* (13.0-17.5) gm/dL Hct 21.3 L (39.0-53.0) % MCV 121.4 H (80.0-100.0) fL MCH 37.0 H (25.0-35.0) pg MCHC 30.5 L (31.0-37.0) g/dL RDW 21.3 H (11.5-15.5) % Neutrophils # 8.6 H (1.3-7.7) k/uL Lymphocytes # 0.8 L (1.0-4.8) k/uL Macrocytosis Marked A APTT 51.0 H (22.0-30.0) sec Chloride (98-107) mmol/L BUN (9-20) mg/dL Creatinine (0.66-1.25) mg/dL Glucose (74-99) mg/dL POC Glucose (mg/dL) 122 H (75-99) mg/dL Calcium (8.4-10.2) mg/dL Crossmatch 07/18/19 07/18/19 07/18/19 Range/Units 04:17 05:09 10:30 WBC 10.7 H (3.8-10.6) k/uL RBC 2.17 L (4.30-5.90) m/uL Hgb 7.6 L (13.0-17.5) gm/dL Hct 24.7 L (39.0-53.0) % MCV 114.2 H D (80.0-100.0) fL MCH 35.2 H (25.0-35.0) pg MCHC 30.8 L (31.0-37.0) g/dL RDW 23.0 H (11.5-15.5) % Neutrophils # (1.3-7.7) k/uL Lymphocytes # (1.0-4.8) k/uL Macrocytosis Marked A APTT (22.0-30.0) sec Chloride 111 H (98-107) mmol/L BUN 39 H (9-20) mg/dL Creatinine 1.44 H (0.66-1.25) mg/dL Glucose 121 H (74-99) mg/dL POC Glucose (mg/dL) 126 H (75-99) mg/dL Calcium 7.4 L (8.4-10.2) mg/dL Crossmatch 07/18/19 Range/Units 13:34 WBC (3.8-10.6) k/uL RBC (4.30-5.90) m/uL Hgb (13.0-17.5) gm/dL Hct (39.0-53.0) % MCV (80.0-100.0) fL MCH (25.0-35.0) pg MCHC (31.0-37.0) g/dL RDW (11.5-15.5) % Neutrophils # (1.3-7.7) k/uL Lymphocytes # (1.0-4.8) k/uL Macrocytosis APTT (22.0-30.0) sec Chloride (98-107) mmol/L BUN (9-20) mg/dL Creatinine (0.66-1.25) mg/dL Glucose (74-99) mg/dL POC Glucose (mg/dL) 123 H (75-99) mg/dL Calcium (8.4-10.2) mg/dL Crossmatch Assessment and Plan Assessment: Acute hypoxic respiratory failure secondary to COPD, CHF and possible pneumonia rule out COVID Acute blood loss anemia with thrombocytopenia Severe PAD with Debility Sepsis with E. coli UTI and bacteremia Acute renal failure with Left-sided hydronephrosis Acute metabolic encephalopathy Atrial fibrillation with RVR Steroid-induced hyperglycemia Troponin elevation History of alcohol abuse This morning chest x-ray shows stable exam with minimal bilateral pleural e ffusion along with bibasilar airspace disease. Plans: Continue Pulmicort. Continue formoterol. DuoNeb scheduled and as needed for shortness of breath and wheezing. Currently off Solu-Medrol. O2 per NC to maintain O2 saturation greater than 92%. Ventilator management as per pulmonology. Pulmonology on board. Platelet count of 153 post 1 unit platelet. Hg 6.5-7.6 post 1 unit PRBC, total of 3 unit PRBC. Also with chronic alcohol abuse. Plans: No obvious signs of gross bleeding. Hemoglobin remaining. Repeat CBC tomorrow morning. Transfuse if platelet count less than 10. Plans: No intervention planned by vascular surgery as of yet. Heparin drip continued by vascular surgery. PT and OT consulted. CT aorta with runoff planned if patient is able to recover. Blood culture and urine culture positive for E. coli. Repeat blood cultures negative at 144 hours. Plans: Continue Zosyn. Follow repeat blood cultures. Infectious disease on board. BUN 39, creatinine 1.47. Also with left-sided hydronephrosis. Plans: Urology evaluated patient for hydronephrosis, found to be mild in nature with nothing further from a urologic standpoint. Avoid nephrotoxins. Repeat BMP tomorrow morning. Nephrology following. His metabolic encephalopathy is likely related to sepsis with E. coli bacteremia along with acute hypoxic respiratory failure. Patient's heart rate is currently regular. Plans: Patient will be continued on oral Metoprolol and amiodarone. Heparin drip started for anticoagulation. Cardiology on board. [id number] glucose 123. Plans: Levemir 20 units at bedtime. Insulin sliding scale. Regular Accu-Cheks. Hypoglycemic precautions. Troponin 0.061, 0.105, 0.125. Likely demand ischemia from A. fib with RVR also sepsis. Acute coronary syndrome ruled out. Plans: Follow cardiology recommendations. Plans: Continue to monitor for signs and symptoms of withdrawal. [Patient admitted for E. coli bacteremia and sepsis, repeat blood culture negative so far, on IV Abx. Found to have acute renal failure which is improving. Also hypoxic respiratory failure from COPD, CHF and possible PNA, reintubated on July 14. Started on heparin drip by vascular surgery for severe PAD and necrotic distal wounds. Plans for Dr. Ayala to address CODE STATUS with daughter. Prognosis is extremely poor.]
[2019-07-18 17:15] LABS: Glucose,Whole Blood 121 mg/dL (75-99)
[2019-07-18] MEDS: NOREPINEPHRINE 8 MG in SODIUM CHLORIDE 0.9% 250 ML IV SCH (17:15)
[2019-07-18] MEDS: MORPHINE SULFATE 4 MG/ML SYRINGE IV PRN (20:31)
[2019-07-18] MEDS: INSULIN DETEMIR (LEVEMIR) 100 UNIT/ML SYR SQ SCH (21:11)
[2019-07-18 21:23] LABS: Glucose,Whole Blood 116 mg/dL (75-99)
[2019-07-19] MEDS: HEPARIN SOD,PORK IN 0.45% NACL 25,000 UNIT in 0.45% NACL 1 250ML.BAG IV SCH (00:14)
[2019-07-19] MEDS: THIAMINE 100 MG/ML 2 ML VIAL IVP SCH ×2 (00:37→12:29)
[2019-07-19 00:38] LABS: Glucose,Whole Blood 116 mg/dL (75-99)
[2019-07-19] MEDS: PROPOFOL 1,000 MG in EMPTY BAG 1 BAG IV SCH (02:25)
[2019-07-19 06:22] LABS: Glucose,Whole Blood 111 mg/dL (75-99)
[2019-07-19 06:32] LABS: Anisocytosis Moderate; HCT 23.7 % (39.0-53.0); HGB 7.1 gm/dL (13.0-17.5); Hypochromasia Marked; MCH 33.8 pg (25.0-35.0); MCHC 29.9 g/dL (31.0-37.0); MCV 113.2 fL (80.0-100.0); Macrocytosis Marked; Mean Platelet Volume 9.8; Platelet Count 155 k/uL (150-450); Poikilocytosis Slight; RBC 2.09 m/uL (4.30-5.90); RDW 23.3 % (11.5-15.5)
[2019-07-19] MEDS: INSULIN ASPART (NovoLOG) 100 UNIT/ML VIAL SQ SCH ×3 (06:36→12:29)
[2019-07-19 06:42] LABS: Calcium 7.6 mg/dL (8.4-10.2); Potassium 4.4 mmol/L (3.5-5.1)
--- NOTE | 2019-07-19 07:16 | XR ---
EXAMINATION TYPE: XR chest 1V portable DATE OF EXAM: 07/19/2019 COMPARISON: 07/18/2019 HISTORY: Tube for TECHNIQUE: Single frontal view of the chest is obtained. FINDINGS: ET and NG tube and PICC line stable. Bilateral infiltrate and pleural effusion stable. Hea rt size stable. Hypertrophic and degenerative change spine. Arthropathy of the shoulders. Nodular den sity in the left lung as well-seen on today's exam. No sizable pneumothorax. IMPRESSION: 1. Bilateral infiltrate and pleural effusion stable.
[2019-07-19] MEDS: HEPARIN SODIUM,PORCINE 5,000 UNIT/ML 1 ML VIAL IV PRN (07:20)
[2019-07-19 07:56] LABS: ABG Base Excess -0.6 mmol/L; ABG HCO3 24 mmol/L (21-25); ABG Oxygen Saturation 97.7 % (94-97); ABG PCO2 34 mmHg (35-45); ABG PH 7.44 (7.35-7.45); ABG PO2 91 mmHg (83-108); ABG TCO2 25 mmol/L (19-24)
[2019-07-19 07:58] LABS: Allen Test Performed? no
[2019-07-19] MEDS: IPRATROPIUM-ALBUTEROL 3 ML NEB INHALATION SCH (08:36)
[2019-07-19] MEDS: FORMOTEROL FUMARATE 20 MCG/2 ML NEBU INHALATION SCH (08:36)
[2019-07-19] MEDS: PIPERACILLIN-TAZOBACTAM 3.375 GM in SODIUM CHLORIDE 0.9% 100 ML IVPB SCH ×3 (08:39)
[2019-07-19] MEDS: PANTOPRAZOLE 40 MG/10 ML VIAL IV SCH (08:40)
[2019-07-19] MEDS: CHLORHEXIDINE GLUCONATE 15 ML CUP MUCOUS MEM SCH (08:40)
[2019-07-19] MEDS: AMIODARONE 200 MG TAB PO SCH (08:40)
--- NOTE | 2019-07-19 10:28 | P.PN ---
Subjective Progress Note Date: 07/19/19 She was seen and examined lying in bed in the ICU. Patient is sedated on mechanical ventilation. No acute changes through the night. Nursing and RT at bedside getting ready to extubate patient. Dr. Ayala spoke with patient's daughter yesterday, plan is unclear at this time. Patient at this time remains a full code. Objective - Vital Signs Vital signs: Vital Signs Temp 99.1 F 07/19/19 08:00 Pulse 94 07/19/19 09:01 Resp 16 07/19/19 09:00 BP 120/75 07/19/19 09:00 Pulse Ox 100 07/19/19 09:00 Intake & Output 07/18/19 07/19/19 07/19/19 18:59 06:59 18:59 Intake Total 5364.588 7943.918 522.154 Output Total 2075 1060 350 Balance -413.461 279.918 172.154 Weight 88.8 kg Intake: IV 220 320 130 0.9 Normal Saline @ 10mL/ 120 120 30 hr as KVO Piperacillin-Tazobactam 3 100 200 100 .375 gm In Sodium Chloride 0.9% 100 ml @ 25 mls/hr IVPB Q8HR [facility] Rx# :[id number] Intake, IV Titration 429.539 397.918 209.154 Amount Heparin Sod,Pork in 0.45% 229.539 250 114.369 NaCl 25,000 unit In 0.45 % NaCl 1 250ml.bag @ 11.6 UNITS/KG/HR 9.999 mls/hr IV .Q24H RENE Rx#: [id number] Propofol 1,000 mg In 200.000 147.918 94.785 Empty Bag 1 bag @ Titrate IV .Q0M RENE Rx#: [id number] Tube Feeding 612 562 153 Blood Product 310 Rc As-1 Unit 310 [id number] Other 90 60 30 Output: Urine 2075 1060 350 Other: Voiding Method Indwelling Catheter Indwelling Catheter - Exam General appearance: The patient is sedated on mechanical ventilation. HET: Head is normocephalic and atraumatic. Neck: Supple without lymphadenopathy. Trachea midline. Heart: S1 S2. Irregular rate and rhythm. Lungs: Diminished lung sounds with rhonchi. Abdomen: Soft, nontender, nondistended with bowel sounds. Extremities: Bilateral hands with edema, purple coloring and mottling, left greater than right, bilateral palpable 2+ radial pulses. Bilateral fingertips with necrotic tissue. Bilateral lower extremities with mottling, diminished capillary refill. Bilateral lower extremities with nonpalpable pulses, and absent doppler signal at PT and DP. Bilateral femoral and popliteal Doppler signal. Ulcers on lateral side of bilateral ankles, with ulcerations to bilateral great toes and left second toe. Bilateral lower extremities cold to touch. Bilateral lower extremity toes with necrotic tissue. Neurological: sedated. - Labs CBC & Chem 7: 07/19/19 06:10 07/19/19 06:10 Labs: Abnormal Lab Results - Last 24 Hours (Table) 07/18/19 07/18/19 07/18/19 Range/Units 10:30 13:34 17:14 WBC 10.7 H (3.8-10.6) k/uL RBC 2.17 L (4.30-5.90) m/uL Hgb 7.6 L (13.0-17.5) gm/dL Hct 24.7 L (39.0-53.0) % MCV 114.2 H D (80.0-100.0) fL MCH 35.2 H (25.0-35.0) pg MCHC 30.8 L (31.0-37.0) g/dL RDW 23.0 H (11.5-15.5) % Macrocytosis Marked A APTT (22.0-30.0) sec ABG pCO2 (35-45) mmHg ABG Total CO2 (19-24) mmol/L ABG O2 Saturation (94-97) % Chloride (98-107) mmol/L BUN (9-20) mg/dL Creatinine (0.66-1.25) mg/dL POC Glucose (mg/dL) 123 H 121 H (75-99) mg/dL Calcium (8.4-10.2) mg/dL 07/18/19 07/19/19 07/19/19 Range/Units 21:09 00:36 06:10 WBC 11.0 H (3.8-10.6) k/uL RBC 2.09 L (4.30-5.90) m/uL Hgb 7.1 L (13.0-17.5) gm/dL Hct 23.7 L (39.0-53.0) % MCV 113.2 H (80.0-100.0) fL MCH (25.0-35.0) pg MCHC 29.9 L (31.0-37.0) g/dL RDW 23.3 H (11.5-15.5) % Macrocytosis Marked A APTT (22.0-30.0) sec ABG pCO2 (35-45) mmHg ABG Total CO2 (19-24) mmol/L ABG O2 Saturation (94-97) % Chloride (98-107) mmol/L BUN (9-20) mg/dL Creatinine (0.66-1.25) mg/dL POC Glucose (mg/dL) 116 H 116 H (75-99) mg/dL Calcium (8.4-10.2) mg/dL 07/19/19 07/19/19 07/19/19 Range/Units 06:10 06:10 06:19 WBC (3.8-10.6) k/uL RBC (4.30-5.90) m/uL Hgb (13.0-17.5) gm/dL Hct (39.0-53.0) % MCV (80.0-100.0) fL MCH (25.0-35.0) pg MCHC (31.0-37.0) g/dL RDW (11.5-15.5) % Macrocytosis APTT 38.9 H (22.0-30.0) sec ABG pCO2 (35-45) mmHg ABG Total CO2 (19-24) mmol/L ABG O2 Saturation (94-97) % Chloride 110 H (98-107) mmol/L BUN 41 H (9-20) mg/dL Creatinine 1.47 H (0.66-1.25) mg/dL POC Glucose (mg/dL) 111 H (75-99) mg/dL Calcium 7.6 L (8.4-10.2) mg/dL 07/19/19 Range/Units 07:54 WBC (3.8-10.6) k/uL RBC (4.30-5.90) m/uL Hgb (13.0-17.5) gm/dL Hct (39.0-53.0) % MCV (80.0-100.0) fL MCH (25.0-35.0) pg MCHC (31.0-37.0) g/dL RDW (11.5-15.5) % Macrocytosis APTT (22.0-30.0) sec ABG pCO2 34 L (35-45) mmHg ABG Total CO2 25 H (19-24) mmol/L ABG O2 Saturation 97.7 H (94-97) % Chloride (98-107) mmol/L BUN (9-20) mg/dL Creatinine (0.66-1.25) mg/dL POC Glucose (mg/dL) (75-99) mg/dL Calcium (8.4-10.2) mg/dL Assessment and Plan Assessment: 1. Bilateral lower extremity toe ulcerations, [place] 5 peripheral arterial disease 2. Critical limb ischemia 3. Acute metabolic encephalopathy 4. Acute hypoxic respiratory failure, previously on BiPAP 5. Metabolic acidosis with acute kidney injury-stable 6. Acute kidney injury 7. History of abdominal aortic aneurysm status post repair 8. history of alcohol abuse and withdrawal 9. chronic anemia 10. thrombocytopenia Plan: The patient's daughter came in and spoke to Dr. Baer and Dr. Ladd. Patient has been made a NO CODE. After Dr. Ladd had discussion with daughter, the patient and his daughter have decided to make him comfort care with discharge to hospice care. The above dictated assessment and findings were discussed with Dr. Ladd. The impression and plan of care have been directed as dictated.
[2019-07-19 11:13] VITALS: BMI 26.5
[2019-07-19] MEDS ORDERED: MORPHINE SULFATE 2 MG/ML SYRINGE IVP STA (12:06)
[2019-07-19] MEDS: MORPHINE SULFATE 2 MG/ML SYRINGE IVP PRN ×2 (13:03→15:30)
--- NOTE | 2019-07-19 14:02 | PN ---
PROGRESS NOTE DATE OF SERVICE: 07/19/2019 REASON FOR FOLLOWUP: E coli UTI bacteremia and aspiration pneumonia. INTERVAL HISTORY: The patient is currently afebrile. The patient is hemodynamically stable, currently off the pressor support. FiO2 is currently 40%. The patient has been more awake on the vent and follows with eyes, no other changes reported by nursing staff. PHYSICAL EXAMINATION: Blood pressure 115/72 with a pulse of 90, temperature 98.1, he is 99% on 40% FiO2. General description is an elderly male, lying in bed in no distress. RESPIRATORY SYSTEM: Unlabored breathing, clear to auscultation anteriorly. HEART: S1, S2. Regular rate and rhythm. ABDOMEN: Soft, no tenderness. LABS: Hemoglobin 7.8, white count 11, BUN of 41, creatinine 1.47. DIAGNOSTIC IMPRESSION AND PLAN: Patient with E coli urinary tract infection with secondary bacteremia, possible component of aspiration pneumonia. Patient is covered with Zosyn to continue and will monitor clinical course closely. Overall prognosis remains to be poor. MMODL / IJN: [id number] /
--- NOTE | 2019-07-19 14:09 | P.PN ---
Subjective Progress Note Date: 07/19/19 Principal diagnosis: Acute hypoxic respiratory failure, E. coli sepsis, septic shock and bacteremia with underlying urinary tract infection. 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 coli sepsis secondary to UTI. The patient subsequently went into hypoxic respiratory failure requiring BiPAP for respiratory support with a component of fluid overload and possible pneumonia. In addition, the patient had acute kidney injury, atrial fibrillation with rapid ventricular response. He is known to have also peripheral vascular disease. The patient was placed on BiPAP for respiratory support and he was kept in the intensive care unit. In terms of his E. coli sepsis, urine culture and the blood culture was positive and the patient is still receiving IV antibiotics and the patient is currently on IV Zosyn. He is afebrile and he is hemodynamically stable on no pressors and the patient is not requiring any pressors. In fact, the patient is on amiodarone drip at 0.5 mg per minute and addition to Cardizem at 10 mg an hour for rate control regarding his atrial fibrillation. His echocardiogram was completed on 07/05/2019 and the patient was found to have a impaired LV function with an ejection fraction of 30-35% and mildly enlarged RV with a right-sided pulmonary artery pressure is estimated to be around 46 mmHg. His renal function was also abnormal. The patient developed an acute kidney injury, admission with a creatinine of 4.6 which gradually improved during the course of his treatment with a decline in the creatinine levels. The patient also had a anion gap metabolic acidosis with gradually recovered. Nephrology is on the case. Ultrasound the kidneys did not show any significant hydronephrosis on this patient. The chest x-ray showed left basilar consolidation right perihilar opacity consistent with multifocal atelectasis/pneumonia. He is receiving PPN for nutritional support. He does have also comorbidities including hypertension , hyperlipidemia, COPD and addition to chronic alcohol use. On today's evaluation of 07/10/2019, the patient is lethargic and weak yet awake and following commands and answering questions appropriately. He is on 3 L of oxygen by nasal cannula. He is not utilizing his BiPAP for now. He remains in atrial fibrillation. He remains on amiodarone maintenance of 0.5 mg per minute. He is on IV Zosyn. His thrombocytopenia is improving. He is receiving PPN for nutritional support. He does have severe peripheral vascular disease along with chronic arterial necrotic ulcers in his toes bilaterally in addition to some necrotic wounds in the ankles bilaterally worse on the right. He remains afebr ile. On today's evaluation of 07/11/2019 the patient is essentially same yesterday. He is lethargic. He is weak. He follows some simple commands. He seems to be appropriate however profoundly weak. He passed a swallow evaluation. Nevertheless, he is oral intake is considered to be low and the patient will be kept on PPN for nutritional support. The patient's IV medication will be switched over to oral as the patient is on amiodarone and Cardizem drip for his atrial fibrillation. Is currently on 2 L of oxygen by nasal cannula. Urine culture came back positive for E. coli. For now, the patient is on oral amiodarone regarding his atrial fibrillation 400 mg by mouth twice a day. The patient is on Toprol 25 mg twice a day. He is receiving Levemir insulin 20 units daily at bedtime. Discontinuation of the IV Solu Medrol helped his blood sugar control. Nevertheless, the patient on PPN which is obviously contributing to his blood sugar elevation. No other significant events overnight. His resting comfortably in bed. On 07/12/2019, the patient is essentially the same condition. Oral intake is minimal and he is not eating much approximately 10-20% of his tray is being utilized on a daily basis. For that reason the patient is being supplemented with TPN for nutritional support. He remains on IV Zosyn. His urine culture came back positive for E. coli. Blood culture came back positive for E. coli. He is on 40s of oxygen by nasal cannula with a pulse ox of 91%. He is awake and alert and is following commands and answering questions. Nevertheless, he remains wide lethargic and weak and he is very much laying in bed without much of an activity. He has extensive bruising over extremities in addition to severe peripheral vascular disease with chronic ulcerations and his toes bilaterally and these are arterial ulcers are quite necrotic. Vascular surgeries on the case and no surgical interventions to be done. Renal function continues to improve in the creatinine is down to 1.7. Hemoglobin is at 9 without any significant leukocytosis. The blood sugar is under adequate control as the patient is on Lantus insulin in addition to sliding scale coverage. On 07/13/2019, the patient is still doing poorly. Laying in bed. No significant respiratory distress. Nevertheless, he seems to be quite lethargic and he drifts to sleep if left unstimulated. I was told that he worked with physical therapy. His oral intake is still low and the patient is still re ceiving TPN for nutritional support. The patient is completing the course of his IV Zosyn regarding E. coli sepsis and the hemodynamic parameters is improved, his blood pressure is normalized, his renal function continues to improve and his platelet count is also normalized. On today's evaluation, the skin in the lower extremity and the feet of significantly more mottled and the patient has no Doppler pulses that I was able to identify in his legs. Based on that, I recommended an immediate vascular surgery reevaluation regarding this issue. I discussed this case with Dr. Ladd. We decided to put the patient IV heparin now that his platelet count has improved. No plans for any surgical intervention. He has extensive vascular disease with chronic arterial ulcers in lower extremities bilaterally. These ulcers are dry and necrotic and nondraining. No fever. No chills. He has had no bowel movement and the patient will be given l laxative in that regard. I was able to talk to the daughter yesterday. I discussed with her his poor prognosis based on the above- mentioned comorbidities. Obviously the vascular insufficiency is a significant issue for now. He is on Levemir insulin and the dose was adjusted up to 20 units along with his vascular coverage. On 07/14/2019, no major changes in his condition and the patient is essentially the same, but he is laying down comfortably in bed, lethargic, at times confused, and sleepy. No pulses in lower extremities bilaterally and I was unable to also feel the popliteal pulses. The feet are extremely cold and ischemic with arterial necrotic wounds bilaterally. He is currently on IV heparin. Denies having any pain issues. No issues with bleeding complications. Skin is mottled and there are some areas of subcutaneous bruising in upper extremities bilaterally. He is still receiving TPN for nutritional support. Cardiac rhythm is sinus on oral amiodarone 400 mg by mouth twice a day. The patient has no hemodynamic instability. Pro-calcitonin level has dropped as the patient was treated for E. coli septicemia. Contacted the daughter. Unfortunately this is not a good situation specially the patient is quite debilitated and his oral intake is quite minimal and the patient is unable to show any signs of any clinical recovery. Furthermore, there is further ischemic changes in lower extremities bilaterally and vascular surgeon is contemplating subsequent amputation of later stage as the patient is not a candidate for any vascular interventions other than amputation for now. No clear lines of the medication lower extremities. Hemoglobin is at 7.8. On 07/15/2019, the patient is being seen in follow-up in intensive care unit. The patient's condition decompensated yesterday afternoon. The patient became progressively more lethargic and weak and tachypneic and hypoxic. He was not following any commands and he was found to be significant respiratory distress. At that point we decided to proceed with intubation and following that'll place the patient on mechanical ventilator. Note that the family was informed of these changes and intubation was cleared with the daughters. For now, the patient is an assist-control mode of ventilation at the rate of 16 with a tidal volume of 450 and FiO2 of 40% with a PEEP of 5. The patient post intubation blood gas was reviewed. There is a sitter ventilator changes were done. The patient was weaned down to 40% FiO2. Meanwhile, the chest x-ray shows no evid ence of an acute pneumonia, and the blood gas showed a pH of 7.45 with a pCO2 of 34 and pO2 of 77. The morning blood gases showed a hemoglobin of 6.6 and the patient is receiving a unit of packed RBC. The patient was receiving IV heparin there was no evidence of any acute bleeding. The patient is also is requiring norepinephrine infusion for blood pressure support which is running at 0.08 g per KG per minute. He is currently sedated with propofol running at 40 g per KG per minute. IV fluids are currently at KVO and the patient is on TPN for nutritional support via PICC line. The ultimate goal is to switch this patient for enteral feeding for nutritional support now that we have an axis with a orogastric tube. The patient is afebrile. The patient is extremely poor vascular system with necrotic digits and fingers and upper extremities along with ischemic feet bilaterally with there is absent dorsalis pedis and posterior tibialis. Noted post intubation mechanical ventilation, we were able to obtain Doppler popliteal segments. Nevertheless, the mottling and the line of demarc ation is forming in the lower extremities as the patient has extensive necrosis of the toes bilaterally. Family has been made aware. Vester surgeries on the case. In terms of IV access, established also a left IJ triple-lumen catheter without any major difficulties today. Antibiotic coverage with IV Zosyn which is an empiric antibiotic coverage for now. The patient is on Levemir insulin 20 units daily at bedtime along with it. Coverage. Levemir will be kept on hold for now. His cardiac rhythm is A. fib which is well-controlled and the patient remains on amiodarone orally 4 mg by mouth twice a day. I had to stop the metoprolol as the patient become hypotensive requiring pressors. On 07/16/2019, the patient remains intubated on a mechanical ventilator. Doing poorly from the vascular standpoint as the patient has necrotic fingers and necrotic toes with clearly mottling and demarcation line establishing in the right and left lower extremities with absent pulses in the feet. Cerebellar necrotic changes in the fingers of the hand bilaterally. There is some areas of skin denuding from the heel area and the right foot. Nevertheless, he remains on IV heparin. He remains sedated with propofol while being on a mechanical ventilator. He is on a very low dose of norepinephrine infusion for blood pressure support which is running at 0.03 g per KG per minute. The patient is receiving enteral feeding for nutritional support in the form of vital high protein AF at the rate of 30 mL an hour. He remains on a mechanical ventilator. Assist-control at the rate of 16 with a tidal volume of 450 and FiO2 of 40% with a PEEP of 5. He is well sedated. Easily arousable. Morphine for pain control. Levemir insulin for blood sugar control in addition to sliding scale coverage. Oral amiodarone 400 mg by mouth twice a day regarding his atrial fibrillation. He remains in sinus although answers at times is going still into atrial fibrillation with a controlled rate. He remains on IV Zosyn. No other significant issues otherwise for now. Patient was reevaluated today on, remains in the ICU, intubated and mechanically ventilated. He is on assist control rate of 16 tidal volume is 450 FiO2 is 40% and PEEP is 5. Remains on propofol at 20 mcg/kg/m, IV fluid is at K VO, off pressors, patient is being followed by many consultants including infectious disease, nephrology, vascular surgery, and according to the nurses, his daughter is planning to discuss his vascular issues with the vascular surgeon on Wednesday/tomorrow, and we will have to make a decision regarding amputations or possibly proceed to comfort care measures which is the measure I will strongly recommend instead of amputations. ABG today showed a pO2 of 108 pCO2 of 36 pH of 7.42. Hemoglobin is 7.3 WBC count is 10.4. Electrolytes are normal BUN is 42 and creatinine is 1.47 which is about the same over the last few days. Chest x-ray showed trace of bilateral pleural effusions and minimal bibasilar atelectasis. Patient was reevaluated today on in the ICU intubated and mechanica lly ventilated. Ventilator settings are assist control rate of 16 tidal volume is 450 FiO2 40% PEEP is 5. No ABG was done today. His drips include IV fluid at KVO, heparin, and the prevent at 50 mcg/kg/m. Patient is not requiring any pressors. Hemoglobin was noted to be 6.9 this morning, and he received a unit of packed RBCs. Patient remains on enteral tube feeding, he is presently at 51 mL per hour. Patient is hemodynamically stable blood pressure is 94/59 and O2 saturations 98% and he is in sinus rhythm rate of 70. Today I have instructed the nurses to consider sedation holiday, and assessment of mental status, patient is nowhere near weaning, and most likely the patient will be extremely difficult to wean and extubate. And no decision will be made regarding any weaning trials until a final decision is made regarding his vascular issues and possibly multi-limb amputations. Supposedly the daughter is going to discuss his vascular condition with the vascular surgeon today. Patient was reevaluated today on 07/19/19, remains in the ICU, intubated and mechanically ventilated. Yesterday I had a long discussion with his daughter and with the vascular surgeon on the case. Apparently since her discussion with the vascular surgeon, his daughter decided to seriously consider hospice and comfort care measures. I saw the patient this morning, seems to be resting while on mechanical ventilation. He is awake, off propofol, but he seemed generally weak. He was able to follow simple instructions. And I explained to him that I am planning to wean him and extubate him. As a matter of fact I recommended a short trial of pressure support of 8 and CPAP. And the patient looked great with that mode of weaning. His tidal volume was in the 500 range, respiratory rate was in the 20s, and he was very calm, not tachycardic, and not in distress. After half an hour of pressure support and CPAP, I extubated the patient. His daughter came shortly after, and updated her on his condition. She is pleased to see him extubated, and she is planning to discuss his condition with the director case to arrange for possible home hospice. And I think that is very appropriate. CODE STATUS was changed to DO NOT RESUSCITATE. This morning ABG showed a pO2 of 91 pCO2 of 34 pH of 7.44. PTT is 54 and hemoglobin is 7.1. Objective - Vital Signs Vital signs: Vital Signs Temp 98.3 F 07/19/19 13:44 Pulse 103 H 07/19/19 13:44 Resp 20 07/19/19 13:44 BP 115/77 07/19/19 13:44 Pulse Ox 99 07/19/19 13:44 Intake & Output 07/18/19 07/19/19 07/19/19 18:59 06:59 18:59 Intake Total 6794.541 1319.918 522.154 Output Total 2075 1060 350 Balance -413.461 279.918 172.154 Weight 88.8 kg 88.8 kg Intake: IV 220 320 130 0.9 Normal Saline @ 10mL/ 120 120 30 hr as KVO Piperacillin-Tazobactam 3 100 200 100 .375 gm In Sodium Chloride 0.9% 100 ml @ 25 mls/hr IVPB Q8HR [facility] Rx# :[id number] Intake, IV Titration 429.539 397.918 209.154 Amount Heparin Sod,Pork in 0.45% 229.539 250 114.369 NaCl 25,000 unit In 0.45 % NaCl 1 250ml.bag @ 11.6 UNITS/KG/HR 9.999 mls/hr IV .Q24H [facility]ENE Rx#: [id number] Propofol 1,000 mg In 200.000 147.918 94.785 Empty Bag 1 bag @ Titrate IV .Q0M RENE Rx#: [id number] Tube Feeding 612 562 153 Blood Product 310 0 Rc As-1 Unit 310 [id number] Rc As-1 Unit 0 [id number] Other 90 60 30 Output: Urine 2073 1060 350 Other: Voiding Method Indwelling Catheter Indwelling Catheter - Exam Physical Exam: Revealed a 73-year-old white male on mechanical ventilation, awake, follows simple instructions. Head: Atraumatic, normocephalic. HEENT:[Neck is supple.] [No neck masses.] [No thyromegaly.] [No JVD.] PERRLA, EOMI, no icterus. Endotracheal tube and orogastric tube are intact. Chest: [Diminished breath sounds, no crackles or rhonchi or wheezes.. Cardiac Exam: Irregular irregular rhythm, no S3 gallop. No murmur. Abdomen: [Soft, nontender, no megaly, no rebound, no guarding, normal bowel sounds.] Extremities: There is significant acrocyanosis. There is also some mottling of the lower extremities. Skin reveals arterial necrotic ulcers in his toes bilaterally where several toes are necrotic and the patient has necrotic ankle wounds worse on the right lateral aspect of the ankle as well as chronic ecchymotic areas throughout his body. Pulses are absent in the feet bilaterally and the skin is mottled and the feet are extremely cold along with extensive arterial necrotic wounds in his feet and the toes bilaterally. On today's evaluation, there may be a line of demarcation forming in the feet which is an area above the ankle. Neurological Exam: Awake, responsive, follows simple instructions. Psychiatric: Blunted affect, follows simple instructions. Quiet mood. Skin: As noted above under extremities. - Labs CBC & Chem 7: 07/19/19 06:10 07/19/19 06:10 Labs: Abnormal Lab Results - Last 24 Hours (Table) 07/18/19 07/18/19 07/19/19 Range/Units 17:14 21:09 00:36 WBC (3.8-10.6) k/uL RBC (4.30-5.90) m/uL Hgb (13.0-17.5) gm/dL Hct (39.0-53.0) % MCV (80.0-100.0) fL MCHC (31.0-37.0) g/dL RDW (11.5-15.5) % Macrocytosis APTT (22.0-30.0) sec ABG pCO2 (35-45) mmHg ABG Total CO2 (19-24) mmol/L ABG O2 Saturation (94-97) % Chloride (98-107) mmol/L BUN (9-20) mg/dL Creatinine (0.66-1.25) mg/dL POC Glucose (mg/dL) 121 H 116 H 116 H (75-99) mg/dL Calcium (8.4-10.2) mg/dL Crossmatch 07/19/19 07/19/19 07/19/19 Range/Units 06:10 06:10 06:10 WBC 11.0 H (3.8-10.6) k/uL RBC 2.09 L (4.30-5.90) m/uL Hgb 7.1 L (13.0-17.5) gm/dL Hct 23.7 L (39.0-53.0) % MCV 113.2 H (80.0-100.0) fL MCHC 29.9 L (31.0-37.0) g/dL RDW 23.3 H (11.5-15.5) % Macrocytosis Marked A APTT 38.9 H (22.0-30.0) sec ABG pCO2 (35-45) mmHg ABG Total CO2 (19-24) mmol/L ABG O2 Saturation (94-97) % Chloride 110 H (98-107) mmol/L BUN 41 H (9-20) mg/dL Creatinine 1.47 H (0.66-1.25) mg/dL POC Glucose (mg/dL) (75-99) mg/dL Calcium 7.6 L (8.4-10.2) mg/dL Crossmatch 07/19/19 07/19/19 07/19/19 Range/Units 06:19 07:54 12:22 WBC (3.8-10.6) k/uL RBC (4.30-5.90) m/uL Hgb (13.0-17.5) gm/dL Hct (39.0-53.0) % MCV (80.0-100.0) fL MCHC (31.0-37.0) g/dL RDW (11.5-15.5) % Macrocytosis APTT (22.0-30.0) sec ABG pCO2 34 L (35-45) mmHg ABG Total CO2 25 H (19-24) mmol/L ABG O2 Saturation 97.7 H (94-97) % Chloride (98-107) mmol/L BUN (9-20) mg/dL Creatinine (0.66-1.25) mg/dL POC Glucose (mg/dL) 111 H (75-99) mg/dL Calcium (8.4-10.2) mg/dL Crossmatch See Detail 07/19/19 Range/Units 12:22 WBC (3.8-10.6) k/uL RBC (4.30-5.90) m/uL Hgb (13.0-17.5) gm/dL Hct (39.0-53.0) % MCV (80.0-100.0) fL MCHC (31.0-37.0) g/dL RDW (11.5-15.5) % Macrocytosis APTT 54.2 H (22.0-30.0) sec ABG pCO2 (35-45) mmHg ABG Total CO2 (19-24) mmol/L ABG O2 Saturation (94-97) % Chloride (98-107) mmol/L BUN (9-20) mg/dL Creatinine (0.66-1.25) mg/dL POC Glucose (mg/dL) (75-99) mg/dL Calcium (8.4-10.2) mg/dL Crossmatch Assessment and Plan Assessment: Impression: Acute hypoxic respiratory failure requiring intubation and mechanical ventilation. E. coli sepsis bacteremia and septic shock. Severe peripheral vessel occlusive disease, Acute kidney injury Severe COPD. Chronic atrial fibrillation. Type 2 diabetes. 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 Dyslipidemia Hypertension. Anion gap metabolic acidosis secondary to sepsis and septic shock. Chronic anemia Recommendation: Patient was given a weaning trial with a pressure support of 8 and CPAP, and he seemed to tolerate that quite well. Hence I proceeded to extubating the miguel angel oswald. Discussed with her daughter who came shortly after extubation, and now she is quite agreeable to DO NOT RESUSCITATE CODE STATUS, comfort care measures, and hospice. registered nurse surgical services will be notified, and director case notified, plans in progress for hospice at home. Will follow on when necessary basis. Critical care time is 32 minutes Time with Patient: Greater than 30
--- NOTE | 2019-07-19 14:20 | P.PN ---
Subjective Patient is seen in follow for acute kidney injury. Renal function is stable. Nonoliguric. Off vasopressors. Extubated this morning. Hemoglobin 7.1 this morning. Vital signs are stable. General: The patient appeared well nourished and normally developed. HEENT: Head exam is unremarkable. LUNGS: Breath sounds decreased. HEART: Rate and Rhythm are regular. ABDOMEN: Soft. EXTREMITITES: Trace edema. Gangrenous changes noted. Objective - Vital Signs Vital signs: Vital Signs Temp 98.3 F 07/19/19 13:44 Pulse 103 H 07/19/19 13:44 Resp 20 07/19/19 13:44 BP 115/77 07/19/19 13:44 Pulse Ox 99 07/19/19 13:44 Intake & Output 07/18/19 07/19/19 07/19/19 18:59 06:59 18:59 Intake Total 8643.954 0121.918 522.154 Output Total 2075 1060 350 Balance -413.461 279.918 172.154 Weight 88.8 kg 88.8 kg Intake: IV 220 320 130 0.9 Normal Saline @ 10mL/ 120 120 30 hr as KVO Piperacillin-Tazobactam 3 100 200 100 .375 gm In Sodium Chloride 0.9% 100 ml @ 25 mls/hr IVPB Q8HR RENE Rx# :[id number] Intake, IV Titration 429.539 397.918 209.154 Amount Heparin Sod,Pork in 0.45% 229.539 250 114.369 NaCl 25,000 unit In 0.45 % NaCl 1 250ml.bag @ 11.6 UNITS/KG/HR 9.999 mls/hr IV .Q24H RENE Rx#: [id number] Propofol 1,000 mg In 200.000 147.918 94.785 Empty Bag 1 bag @ Titrate IV .Q0M RENE Rx#: [id number] Tube Feeding 612 562 153 Blood Product 310 0 Rc As-1 Unit 310 [id number] Rc As-1 Unit 0 [id number] Other 90 60 30 Output: Urine 2075 1060 350 Other: Voiding Method Indwelling Catheter Indwelling Catheter - Labs CBC & Chem 7: 07/19/19 06:10 07/19/19 06:10 Labs: Abnormal Lab Results - Last 24 Hours (Table) 07/18/19 07/18/19 07/19/19 Range/Units 17:14 21:09 00:36 WBC (3.8-10.6) k/uL RBC (4.30-5.90) m/uL Hgb (13.0-17.5) gm/dL Hct (39.0-53.0) % MCV (80.0-100.0) fL MCHC (31.0-37.0) g/dL RDW (11.5-15.5) % Macrocytosis APTT (22.0-30.0) sec ABG pCO2 (35-45) mmHg ABG Total CO2 (19-24) mmol/L ABG O2 Saturation (94-97) % Chloride (98-107) mmol/L BUN (9-20) mg/dL Creatinine (0.66-1.25) mg/dL POC Glucose (mg/dL) 121 H 116 H 116 H (75-99) mg/dL Calcium (8.4-10.2) mg/dL Crossmatch 07/19/19 07/19/19 07/19/19 Range/Units 06:10 06:10 06:10 WBC 11.0 H (3.8-10.6) k/uL RBC 2.09 L (4.30-5.90) m/uL Hgb 7.1 L (13.0-17.5) gm/dL Hct 23.7 L (39.0-53.0) % MCV 113.2 H (80.0-100.0) fL MCHC 29.9 L (31.0-37.0) g/dL RDW 23.3 H (11.5-15.5) % Macrocytosis Marked A APTT 38.9 H (22.0-30.0) sec ABG pCO2 (35-45) mmHg ABG Total CO2 (19-24) mmol/L ABG O2 Saturation (94-97) % Chloride 110 H (98-107) mmol/L BUN 41 H (9-20) mg/dL Creatinine 1.47 H (0.66-1.25) mg/dL POC Glucose (mg/dL) (75-99) mg/dL Calcium 7.6 L (8.4-10.2) mg/dL Crossmatch 07/19/19 07/19/19 07/19/19 Range/Units 06:19 07:54 12:22 WBC (3.8-10.6) k/uL RBC (4.30-5.90) m/uL Hgb (13.0-17.5) gm/dL Hct (39.0-53.0) % MCV (80.0-100.0) fL MCHC (31.0-37.0) g/dL RDW (11.5-15.5) % Macrocytosis APTT (22.0-30.0) sec ABG pCO2 34 L (35-45) mmHg ABG Total CO2 25 H (19-24) mmol/L ABG O2 Saturation 97.7 H (94-97) % Chloride (98-107) mmol/L BUN (9-20) mg/dL Creatinine (0.66-1.25) mg/dL POC Glucose (mg/dL) 111 H (75-99) mg/dL Calcium (8.4-10.2) mg/dL Crossmatch See Detail 07/19/19 Range/Units 12:22 WBC (3.8-10.6) k/uL RBC (4.30-5.90) m/uL Hgb (13.0-17.5) gm/dL Hct (39.0-53.0) % MCV (80.0-100.0) fL MCHC (31.0-37.0) g/dL RDW (11.5-15.5) % Macrocytosis APTT 54.2 H (22.0-30.0) sec ABG pCO2 (35-45) mmHg ABG Total CO2 (19-24) mmol/L ABG O2 Saturation (94-97) % Chloride (98-107) mmol/L BUN (9-20) mg/dL Creatinine (0.66-1.25) mg/dL POC Glucose (mg/dL) (75-99) mg/dL Calcium (8.4-10.2) mg/dL Crossmatch Assessment and Plan Plan: Assessment: 1. Acute kidney injury secondary to ATN secondary to sepsis and hemodynamic instability. Renal function stable. 2. E. coli UTI and bacteremia maintained on antibiotics. Infectious disease following. 3. A. fib with RVR on admission. Maintained on oral amiodarone. 4. Bilateral toe gangrene. Vascular surgery following. Currently on heparin drip. 5. Mild volume overload. Plan: Patient will be going home on hospice today.
[2019-07-19] MEDS ORDERED: FUROSEMIDE 10 MG/ML 2 ML VIAL IV ONE (14:36)
--- NOTE | 2019-07-19 15:41 | P.PN ---
Subjective Progress Note Date: 07/18/19 Principal diagnosis: Bilateral lower extremity arterial occlusive disease Patient was seen and examined lying in bed in the ICU. He is sedated and on mechanical ventilation. He did undergo a sedation holiday which according to the nursing staff was not too responsive. No real changes over the last 24 hours according to the nursing staff. Upon review of previous notes from ICU care patient is not ready to be weaned or extubated and likely will have a difficult time to be weaned and extubated. Per the staff his legs have been worsening and the discoloration in his feet have been climbing to his ankles. He is also having discoloration in his fingers. Objective - Vital Signs Vital signs: Vital Signs Temp 98.1 F 07/18/19 08:53 Pulse 76 07/18/19 16:17 Resp 16 07/18/19 16:17 BP 89/56 07/18/19 10:30 Pulse Ox 97 07/18/19 10:30 Intake & Output 07/17/19 07/18/19 07/18/19 18:59 06:59 18:59 Intake Total 3643.984 9558.560 1006.574 Output Total 800 860 250 Balance 744.134 333.560 756.574 Weight 89 kg Intake: IV 320 220 130 0.9 Normal Saline @ 10mL/ 120 120 30 hr as KVO Piperacillin-Tazobactam 3 200 100 100 .375 gm In Sodium Chloride 0.9% 100 ml @ 25 mls/hr IVPB Q8HR RENE Rx# :[id number] Intake, IV Titration 522.134 271.560 383.574 Amount Heparin Sod,Pork in 0.45% 250.000 229.539 NaCl 25,000 unit In 0.45 % NaCl 1 250ml.bag @ 11.6 UNITS/KG/HR 9.999 mls/hr IV .Q24H RENE Rx#: [id number] Propofol 1,000 mg In 272.134 271.560 154.035 Empty Bag 1 bag @ Titrate IV .Q0M RENE Rx#: [id number] Tube Feeding 612 612 153 Blood Product 0 310 Rc As-1 Unit 0 310 [id number] Other 90 90 30 Output: Urine 800 860 250 Other: Voiding Method Indwelling Catheter Indwelling Catheter # Bowel Movements 1 - Exam Gen: Sedated and ventilated HEENT: Head is normocephalic atraumatic. Pupils are reactive. No ocular movements due to sedation. Neck: Supple without any lymphadenopathy. Trachea is midline CV: Irregular rate and rhythm Pulm: Diminished lung sounds with rhonchi Abdomen: Soft, nontender, nondistended Ext: Bilateral hands with edema, purple discoloration and mottling extending to his mid hand. Left is greater than the right. Fingers are ischemic appearing. Bilateral palpable 2+ radial pulses. Bilateral lower extremities with mottling and diminished capillary refill extending to the ankles and just slightly above on the right. Absent Doppler and pulses DP and PT bilaterally. Bilateral femoral and popliteal Doppler signal noted as well as palpable femoral pulse. Multiple ulcers noted on the lateral side of bilateral ankles and great toe and second toe. Extremities are cool to touch and dry gangrene is noted at the toes consistent with mummification. - Labs CBC & Chem 7: 07/19/19 06:10 07/19/19 06:10 Labs: Abnormal Lab Results - Last 24 Hours (Table) 07/15/19 07/17/19 07/17/19 Range/Units 05:17 17:35 18:37 WBC (3.8-10.6) k/uL RBC (4.30-5.90) m/uL Hgb (13.0-17.5) gm/dL Hct (39.0-53.0) % MCV (80.0-100.0) fL MCH (25.0-35.0) pg MCHC (31.0-37.0) g/dL RDW (11.5-15.5) % Neutrophils # (1.3-7.7) k/uL Lymphocytes # (1.0-4.8) k/uL Macrocytosis APTT 47.6 H (22.0-30.0) sec Chloride (98-107) mmol/L BUN (9-20) mg/dL Creatinine (0.66-1.25) mg/dL Glucose (74-99) mg/dL POC Glucose (mg/dL) 120 H (75-99) mg/dL Calcium (8.4-10.2) mg/dL Crossmatch See Detail 07/17/19 07/18/19 07/18/19 Range/Units 23:10 04:17 04:17 WBC (3.8-10.6) k/uL RBC 1.76 L (4.30-5.90) m/uL Hgb 6.5 L* (13.0-17.5) gm/dL Hct 21.3 L (39.0-53.0) % MCV 121.4 H (80.0-100.0) fL MCH 37.0 H (25.0-35.0) pg MCHC 30.5 L (31.0-37.0) g/dL RDW 21.3 H (11.5-15.5) % Neutrophils # 8.6 H (1.3-7.7) k/uL Lymphocytes # 0.8 L (1.0-4.8) k/uL Macrocytosis Marked A APTT 51.0 H (22.0-30.0) sec Chloride (98-107) mmol/L BUN (9-20) mg/dL Creatinine (0.66-1.25) mg/dL Glucose (74-99) mg/dL POC Glucose (mg/dL) 122 H (75-99) mg/dL Calcium (8.4-10.2) mg/dL Crossmatch 07/18/19 07/18/19 07/18/19 Range/Units 04:17 05:09 10:30 WBC 10.7 H (3.8-10.6) k/uL RBC 2.17 L (4.30-5.90) m/uL Hgb 7.6 L (13.0-17.5) gm/dL Hct 24.7 L (39.0-53.0) % MCV 114.2 H D (80.0-100.0) fL MCH 35.2 H (25.0-35.0) pg MCHC 30.8 L (31.0-37.0) g/dL RDW 23.0 H (11.5-15.5) % Neutrophils # (1.3-7.7) k/uL Lymphocytes # (1.0-4.8) k/uL Macrocytosis Marked A APTT (22.0-30.0) sec Chloride 111 H (98-107) mmol/L BUN 39 H (9-20) mg/dL Creatinine 1.44 H (0.66-1.25) mg/dL Glucose 121 H (74-99) mg/dL POC Glucose (mg/dL) 126 H (75-99) mg/dL Calcium 7.4 L (8.4-10.2) mg/dL Crossmatch 07/18/19 Range/Units 13:34 WBC (3.8-10.6) k/uL RBC (4.30-5.90) m/uL Hgb (13.0-17.5) gm/dL Hct (39.0-53.0) % MCV (80.0-100.0) fL MCH (25.0-35.0) pg MCHC (31.0-37.0) g/dL RDW (11.5-15.5) % Neutrophils # (1.3-7.7) k/uL Lymphocytes # (1.0-4.8) k/uL Macrocytosis APTT (22.0-30.0) sec Chloride (98-107) mmol/L BUN (9-20) mg/dL Creatinine (0.66-1.25) mg/dL Glucose (74-99) mg/dL POC Glucose (mg/dL) 123 H (75-99) mg/dL Calcium (8.4-10.2) mg/dL Crossmatch Assessment and Plan Assessment: #1 bilateral lower extremity toe ulcerations, lower extremity limb ischemia Kelly classification 6 #2 acute metabolic encephalopathy #3 acute hypoxic respiratory failure #4 metabolic acidosis secondary to acute kidney injury #5 acute kidney failure #6 history of AAA with endovascular aortic repair #7 history of alcohol abuse and withdrawal #8 chronic anemia Plan: I reviewed ICU care notes from over the weekend and yesterday. Patient's current status is poor from a vascular standpoint and will likely need bilateral below-knee amputations. He will also likely need some finger amputations in the future. I had a long discussion with the patient's daughter about CODE STATUS and further intervention. She is concerned of the patient's status and if there is hope that he would recover from a pulmonary standpoint and mental standpoint then they would be okay to go forward with amputations. I discussed his case with Dr. Nicole and he feels that he will not be able to be extubated at this time due to his current issues including his gangrenous lower extremities which will likely increase his acidosis making extubation more difficult. He will also need to be intubated again even if he does extubate with no issues for his future surgeries. Because of this we will discuss with the daughter going comfort care versus doing the amputations at this time and extubating him after with the plan to not reintubate if needed. I will not be doing any hand or finger amputations at this time and will allow them to auto amputate or perform the procedure a later date with a block. Discussed with Daughter in detail for 30 minutes prognosis and plan of care- She decided to go comfort care and extubation without any surgical intervention.
[2019-07-19 16:56] VITALS: BP 142/86; PULSE 102; RESP 21; TEMP 98.1
--- NOTE | 2019-07-19 17:23 | P.DS ---
Providers Date of admission: 07/04/19 02:43 Expected date of discharge: 07/19/19 Attending physician: Ilana Maxwell MD Consults: 07/04/19 02:37 Consult Physician Routine Consulting Provider: Epifanio Ayala Consult Reason/Comments: known Do you want consulting provider notified?: Yes Consult Physician Routine Consulting Provider: Jarrod Dutta Consult Reason/Comments: ID Do you want consulting provider notified?: Yes Consult Physician Urgent Consulting Provider: Gabo Govea Consult Reason/Comments: respFail,ICU Do you want consulting provider notified?: Yes Consult Physician Urgent Consulting Provider: Rhonda Tovar Consult Reason/Comments: renalFail Do you want consulting provider notified?: Yes 07/04/19 20:40 Consult Physician Routine Consulting Provider: Dung Huizar Consult Reason/Comments: elevated trops Do you want consulting provider notified?: Yes 07/05/19 12:41 Consult Physician Urgent Consulting Provider: Scott Keith Consult Reason/Comments: hydronephrosis Do you want consulting provider notified?: Yes 07/13/19 08:46 Consult Physician Routine Consulting Provider: Eduardo Griffin Consult Reason/Comments: IPR Do you want consulting provider notified?: Yes Primary care physician: Ulices Freire Hospital Course: 73-year-old male with PMH of hypertension, dyslipidemia, PAD, idiopathic thrombocytosis presents to the ED for confusion and lethargy. He was found to have E. coli sepsis secondary to UTI. He was also noted to be in hypoxic respiratory failure thought to be related to fluid overload, possible pneumonia, coronavirus and/or COPD exacerbation. He was initially started on BiPAP for respiratory support and monitored in the ICU. He was started on Zosyn IV and infectious disease was consulted. He was noted to have worsening renal function for which nephrology was consulted. CT of the abdomen and pelvis showed left hydronephrosis. Urology was consulted and recommended conservative management. His COPD medications was optimized with Pulmicort, formoterol, DuoNeb as needed and scheduled. He was initially started on Solu-Medrol and was given supplemental O2 per NC to maintain O2 saturation greater than 92%. During his hospitalization, patient went into A. fib with RVR. Cardiology was consulted and started the patient on an amiodarone and diltiazem drip. Anticoagulation was held at that time due to his thrombocytopenic nature. He was noted to be hyperglycemic throughout his hospitalization. This is thought to be related to Solu-Medrol and he was started on Levemir and insulin sliding scale. He had elevated troponins of 0.061, 0.105, 0.125 which was thought to be related to demand ischemia from A. fib with RVR and also E. coli sepsis. Acute coronary syndrome was ruled out. Echocardiogram was done which showed EF 30-35% with mildly enlarged right ventricle. His renal function also continued to worsen for which nephrology was consulted. He was started on a bicarbonate drip which was discontinued when his acidosis resolved. Vascular surgery was consulted for his severe PAD with necrotic extremities. Vascular surgery recommended heparin drip and a CTA aorta with runoff when patient was more stable. Patient's hemoglobin dropped during his admission for which he required 4 units of PRBCs and 1 unit of platelets. There were no signs of active bleeding besides his necrotic wounds. Patient was started on TPN on July 07 for nutritional support. His respiratory status worsened and he was intubated July 13. Repeat blood cultures were negative. Patient was extubated on July 18 successfully. Decision was made to discharge the patient home on hospice which the daughter was agreeable for. Patient was seen and examined after extubation. Patient reports some pain in his hands. His daughters at bedside. He appears comfortable. Plans for 1 unit PRBC today prior to discharge home on hospice. General: [Appears toxic older than stated age], [no distress], [appears at stated age] Derm: [warm], [dry] Head: [atraumatic], [normocephalic], [symmetric] Eyes: [EOMI], [no lid lag], [anicteric sclera] Mouth: [no lip lesion], [mucus membranes moist] Cardiovascular: [S1S2 regular], [no murmur], [unable to palpate DP or PT pulses in either extremities], Lungs: [Coarse breath sounds bilateral], [no rhonchi, no rales] , [no accessory muscle use] Abdominal: [soft], [ nontender to palpation], [nondistended], [no appreciable organomegaly] Ext: [no gross muscle atrophy], [no edema], [necrotic, ulcerated wounds in bilateral feet and toes with worsening erythema], [scattered ecchymosis in all 4 extremities] Neuro: [No focal neurologic deficits] Psych: [Pleasantly confused and redirectable] Acute hypoxic respiratory failure secondary to COPD, CHF and possible pneumonia rule out COVID Acute blood loss anemia with thrombocytopenia Severe PAD with Debility Sepsis with E. coli UTI and bacteremia Acute renal failure with Left-sided hydronephrosis Acute metabolic encephalopathy Atrial fibrillation with RVR Steroid-induced hyperglycemia Troponin elevation History of alcohol abuse This morning chest x-ray shows stable exam with minimal bilateral pleural effusion along with bibasilar airspace disease. Plans: Continue Pulmicort. Continue formoterol. DuoNeb scheduled and as needed for shortness of breath and wheezing. Currently off Solu-Medrol. O2 per NC to maintain O2 saturation greater than 92%. Ventilator management as per pulmonology. Pulmonology on board. Platelet count of 153 post 1 unit platelet. Hg 6.5-7.6,7.1 post 1 unit PRBC, total of 3 unit PRBC. Also with chronic alcohol abuse. Plans: No obvious signs of gross bleeding. Hemoglobin remaining. Repeat CBC tomorrow morning. Transfuse if platelet count less than 10. Plans to transfuse 1 unit PRBC as per poultry trimmer. Plans: No intervention planned by vascular surgery as of yet. Heparin drip discontinued. PT and OT consulted. Plans for home with hospice. Blood culture and urine culture positive for E. coli. Repeat blood cultures negative at 144 hours. Plans: Patient completed multiple days of antibiotics during his hospitalization. He will be discharged on no antibiotics. BUN 41, creatinine 1.47. Also with left-sided hydronephrosis. Plans: Urology evaluated patient for hydronephrosis, found to be mild in nature with nothing further from a urologic standpoint. Avoid nephrotoxins. Repeat BMP tomorrow morning. Nephrology following. His metabolic encephalopathy is likely related to sepsis with E. coli bacteremia along with acute hypoxic respiratory failure. Patient's heart rate is currently regular. Plans: Patient will be continued on oral Metoprolol and amiodarone. Heparin drip discontinued. Cardiology on board. Hvuib-ep-jfkk glucose 111. Plans: Anticipated that he will not need any insulin on discharge. Insulin sliding scale. Regular Accu-Cheks. Hypoglycemic precautions. Troponin 0.061, 0.105, 0.125. Likely demand ischemia from A. fib with RVR also sepsis. Acute coronary syndrome ruled out. Plans: Follow cardiology recommendations. Plans: Continue to monitor for signs and symptoms of withdrawal. [Patient admitted for E. coli bacteremia and sepsis, repeat blood culture negative so far, on IV Abx. Found to have acute renal failure which is improving. Also hypoxic respiratory failure from COPD, CHF and possible PNA, reintubated on July 14, extubated today. Started on heparin drip by vascular surgery for severe PAD and necrotic distal wounds which was discontinued today. Daughter is agreeable for home with hospice. This complex discharge took about 1 hour to complete.] Pertinent Studies: Chest x-ray, CT abdomen and pelvis, kidney ultrasound, echocardiogram Procedures: Intubation, central line Patient Condition at Discharge: Critical Plan - Discharge Summary Discharge Rx Participant: No New Discharge Prescriptions: New Amiodarone [Cordarone] 400 mg PO BID #120 tab Sennosides [Senokot] 8.6 mg PO DAILY PRN tab PRN Reason: Constipation Continue Tamsulosin [Flomax] 0.4 mg PO HS@1999 Ranitidine HCl [Zantac] 150 mg PO BID@ Atenolol [Tenormin] 50 mg PO DAILY@0800 DULoxetine HCL [Cymbalta] 60 mg PO HS@1999 Mometasone/Formoterol [Dulera 200 Mcg/5 Mcg Inhaler] 2 puff INHALATION RT- BID@ Hydroxyurea [Hydrea] 500 mg PO BID #60 cap Megestrol [Megace] 400 mg PO DAILY ALPRAZolam [Xanax] 0.25 mg PO HS Ipratropium-Albuterol Nebulize [Duoneb 0.5 mg-3 mg/3 ml Soln] 3 ml INHALATION RT-QID Discontinued Atorvastatin Calcium [Lipitor] 5 mg PO DAILY@0800 Calcium/Magnesium/Zinc [Fxwgmuc-Cnlyqccgc-Nhgd Tablet] 1 tab PO DAILY@0800 Cyanocobalamin (Vitamin B-12) [Vitamin B-12] 1,000 mcg PO DAILY@0800 predniSONE 10 mg PO DAILY Discharge Medication List Atenolol [Tenormin] 50 mg PO DAILY@0800 01/07/17 [History] DULoxetine HCL [Cymbalta] 60 mg PO HS@199901/07/17 [History] Ranitidine HCl [Zantac] 150 mg PO BID@0800,199901/07/17 [History] Tamsulosin [Flomax] 0.4 mg PO HS@199901/07/17 [History] Mometasone/Formoterol [Dulera 200 Mcg/5 Mcg Inhaler] 2 puff INHALATION RT- BID@799,199901/15/19 [History] Hydroxyurea [Hydrea] 500 mg PO BID #60 cap 01/17/19 [Rx] ALPRAZolam [Xanax] 0.25 mg PO HS 07/04/19 [History] Ipratropium-Albuterol Nebulize [Duoneb 0.5 mg-3 mg/3 ml Soln] 3 ml INHALATION RT-QID 07/04/19 [History] Megestrol [Megace] 400 mg PO DAILY 07/04/19 [History] Amiodarone [Cordarone] 400 mg PO BID #120 tab 07/19/19 [Rx] Sennosides [Senokot] 8.6 mg PO DAILY PRN tab 07/19/19 [Rx] Follow up Appointment(s)/Referral(s): Ulices Freire MD [Primary Care Provider] - 1-2 days Activity/Diet/Wound Care/Special Instructions: Plans for discharge home to hospice. Discharge Disposition: HOME WITH HOSPICE
--- NOTE | 2019-07-20 10:14 | CDI ---
Documentation Clarification Form Date: 07/20/19 From: Marce Roberto Phone: If you have a question about this query, please contact Juliet Vogt, Wheel Alignment Mechanic at [phone] between 8am and 5pm. Admit Date: 07/04/19 Discharge Date: 07/19/19 Patient Name: JOLENE BRIAN Visit Number: [id number] ATTENTION: The Clinical Documentation Specialists (CDI) and [facility] Coding Staff appreciate your assistance in clarifying documentation. Please respond to the clarification below the line at the bottom and electronically sign. The CDI & [facility] Coding staff will review the response and follow-up if needed. Please note: Queries are made part of the Legal Health Record. If you have any questions, please contact the author of this message via ITS. Dear Dr. Gabo Govea, CKD is documented in the PNs by Dr Huizar, Dr Brown and yourself. History/Risk Factors: DM, E coli sepsis, ATN, metabolic encephalopathy, PAF, HTN Clinical Indicators: 07/02-07/18 Current BUN: 113, 110, 122, 126, 130, 129, 126, 122, 114, 112, 97, 85, 78, 68, 65, 60, 49, 42, 39, 41 Current CR: 4.40, 4.22, 4.12, 4.60, 360, 4.15, 3.85, 3.68, 2.76, 2.27, 1.86, 1.73, 1.45, 1.38, 1.40, 1.40, 1.47, 1.44, 1.47 Current GFR: 12, 13, 13, 12, 14, 16, 13, 14, 15, 22, 27, 35, 38, 47, 50, 49, 49, 46, 47, 46 Treatment: Maintain Ladd, renal US, monitor phosphorus levels, IV fluids In order to capture the severity of condition, please clarify the stage of the CKD, if known: CKD ruled out CKD Stage 1 (GFR > 90) CKD Stage 2 (GFR 60-89) CKD Stage 3 (GFR 30-59) CKD Stage 4 (GFR 15-29) CKD Stage 5 (GFR <15) ESRD Other, please specify Unable to determine Unable to determine, probably stage 2, please refer to nephrology MTDD
--- NOTE | 2019-07-26 10:44 | CDI ---
Documentation Clarification Form Date: 07/26/19 From: Marce Roberto Phone: If you have a question about this query, please contact Juliet Vogt, Paste Mixer Liquid at [phone] between 8am and 5pm. Admit Date: 07/04/19 Discharge Date: 07/19/19 Patient Name: JOLENE BRIAN Visit Number: [id number] ATTENTION: The Clinical Documentation Specialists (CDI) and [facility] Coding Staff appreciate your assistance in clarifying documentation. Please respond to the clarification below the line at the bottom and electronically sign. The CDI & [facility] Coding staff will review the response and follow-up if needed. Please note: Queries are made part of the Legal Health Record. If you have any questions, please contact the author of this message via ITS. Dear Dr. Mike Hendrix, CKD is documented in the PNs by Dr Huizar, Dr Brown and yourself. History/Risk Factors: DM, E coli sepsis, ATN, metabolic encephalopathy, PAF, HTN Clinical Indicators: 07/02-07/18 Current BUN: 113, 110, 122, 126, 130, 129, 126, 122, 114, 112, 97, 85, 78, 68, 65, 60, 49, 42, 39, 41 Current CR: 4.40, 4.22, 4.12, 4.60, 360, 4.15, 3.85, 3.68, 2.76, 2.27, 1.86, 1.73, 1.45, 1.38, 1.40, 1.40, 1.47, 1.44, 1.47 Current GFR: 12, 13, 13, 12, 14, 16, 13, 14, 15, 22, 27, 35, 38, 47, 50, 49, 49, 46, 47, 46 Treatment: Maintain Ladd, renal US, monitor phosphorus levels, IV fluids In order to capture the severity of condition, please clarify the stage of the CKD, if known: CKD ruled out CKD Stage 1 (GFR > 90) CKD Stage 2 (GFR 60-89) CKD Stage 3 (GFR 30-59) CKD Stage 4 (GFR 15-29) CKD Stage 5 (GFR <15) ESRD Other, please specify Unable to determine aki, atn MTDD
== END 2019-07-19 16:40 | disposition hospice, home (50) | DRG 870 ==
LOC: EC 22:04 → 2SICU 07-04 02:43
PROVIDERS: ADMIT Internal Medicine; ATTEND Internal Medicine
PROC: 5A09557 Assistance with Respiratory Ventilation, Greater than 96 Consecutive Hours, Continuous Positive Airway Pressure (ICD-10-PCS; 2019-07-03)
PROC: 30233R1 Transfusion of Nonautologous Platelets into Peripheral Vein, Percutaneous Approach (ICD-10-PCS; 2019-07-04)
PROC: 30233N1 Transfusion of Nonautologous Red Blood Cells into Peripheral Vein, Percutaneous Approach (ICD-10-PCS; 2019-07-06)
PROC: 3E0436Z Introduction of Nutritional Substance into Central Vein, Percutaneous Approach (ICD-10-PCS; 2019-07-06)
PROC: 05HC33Z Insertion of Infusion Device into Left Basilic Vein, Percutaneous Approach (ICD-10-PCS; 2019-07-07)
PROC: 02H633Z Insertion of Infusion Device into Right Atrium, Percutaneous Approach (ICD-10-PCS; 2019-07-12)
PROC: 05H933Z Insertion of Infusion Device into Right Brachial Vein, Percutaneous Approach (ICD-10-PCS; 2019-07-12)
PROC: 3E043XZ Introduction of Vasopressor into Central Vein, Percutaneous Approach (ICD-10-PCS; principal; 2019-07-14)
PROC: 5A1955Z Respiratory Ventilation, Greater than 96 Consecutive Hours (ICD-10-PCS; principal; 2019-07-14)
PROC: 0BH17EZ Insertion of Endotracheal Airway into Trachea, Via Natural or Artificial Opening (ICD-10-PCS; principal; 2019-07-14)
PROC: 0D9670Z Drainage of Stomach with Drainage Device, Via Natural or Artificial Opening (ICD-10-PCS; 2019-07-14)
PROC: 02HV33Z Insertion of Infusion Device into Superior Vena Cava, Percutaneous Approach (ICD-10-PCS; 2019-07-15)
PROC: 3E0G76Z Introduction of Nutritional Substance into Upper GI, Via Natural or Artificial Opening (ICD-10-PCS; 2019-07-15)
DX: A41.51 Sepsis due to Escherichia coli [E. coli] (principal); J96.01 Acute respiratory failure with hypoxia; N17.0 Acute kidney failure with tubular necrosis; J69.0 Pneumonitis due to inhalation of food and vomit; R65.21 Severe sepsis with septic shock; I21.A1 Myocardial infarction type 2; I50.23 Acute on chronic systolic (congestive) heart failure; G93.41 Metabolic encephalopathy; K66.1 Hemoperitoneum; J44.1 Chronic obstructive pulmonary disease with (acute) exacerbation; E11.52 Type 2 diabetes mellitus with diabetic peripheral angiopathy with gangrene; I42.9 Cardiomyopathy, unspecified; L97.313 Non-pressure chronic ulcer of right ankle with necrosis of muscle; L97.323 Non-pressure chronic ulcer of left ankle with necrosis of muscle; Z99.11 Dependence on respirator [ventilator] status; F10.239 Alcohol dependence with withdrawal, unspecified; N13.6 Pyonephrosis; E87.4 Mixed disorder of acid-base balance; E87.0 Hyperosmolality and hypernatremia; D62 Acute posthemorrhagic anemia; D69.6 Thrombocytopenia, unspecified; I27.20 Pulmonary hypertension, unspecified; Z66 Do not resuscitate; Z51.5 Encounter for palliative care; Z20.828 Contact with and (suspected) exposure to other viral communicable diseases; I11.0 Hypertensive heart disease with heart failure; L97.523 Non-pressure chronic ulcer of other part of left foot with necrosis of muscle; L97.513 Non-pressure chronic ulcer of other part of right foot with necrosis of muscle; E11.621 Type 2 diabetes mellitus with foot ulcer; E11.65 Type 2 diabetes mellitus with hyperglycemia; I48.0 Paroxysmal atrial fibrillation; D63.1 Anemia in chronic kidney disease; E83.39 Other disorders of phosphorus metabolism; E87.6 Hypokalemia; E83.42 Hypomagnesemia; D72.810 Lymphocytopenia; E78.5 Hyperlipidemia, unspecified; I99.8 Other disorder of circulatory system; I08.1 Rheumatic disorders of both mitral and tricuspid valves; M79.641 Pain in right hand; M79.642 Pain in left hand; R29.6 Repeated falls; R53.81 Other malaise; M19.90 Unspecified osteoarthritis, unspecified site; F41.9 Anxiety disorder, unspecified; F17.210 Nicotine dependence, cigarettes, uncomplicated; T38.0X5A Adverse effect of glucocorticoids and synthetic analogues, initial encounter; Y90.0 Blood alcohol level of less than 20 mg/100 ml; Z79.51 Long term (current) use of inhaled steroids; Z79.899 Other long term (current) drug therapy; Z86.2 Personal history of diseases of the blood and blood-forming organs and certain disorders involving the immune mechanism; Z86.79 Personal history of other diseases of the circulatory system; Z87.01 Personal history of pneumonia (recurrent); Z87.81 Personal history of (healed) traumatic fracture; Z90.49 Acquired absence of other specified parts of digestive tract; Z90.89 Acquired absence of other organs; Z98.890 Other specified postprocedural states; W01.110A Fall on same level from slipping, tripping and stumbling with subsequent striking against sharp glass, initial encounter; Y92.009 Unspecified place in unspecified non-institutional (private) residence as the place of occurrence of the external cause; Z88.8 Allergy status to other drugs, medicaments and biological substances; Z80.42 Family history of malignant neoplasm of prostate
CPT/HCPCS: 36410; 36415; 36430; 36573; 36600; 51702; 71045; 74176; 76770; 76937; 80048; 80053; 80306; 80320; 80329; 81001; 82140; 82330; 82550; 82553; 82728; 82803; 82805; 82947; 83520; 83605; 83615; 83735; 83880; 84100; 84132; 84145; 84478; 84484; 85025; 85027; 85379; 85610; 85730; 86140; 86850; 86900; 86901; 86920; 87040; 87070; 87077; 87086; 87186; 87205; 87324; 87635; 93005; 93306; 94002; 94003; 94640; 94660; 96361; 96365; 96366; 96367; 96375; 96376; 99291